=== PATIENT | female | born 1945 | race Caucasian/White ===

== ENCOUNTER 2016-06-12 11:06 | Inpatient (IN) | payer MEDICARE, BC, OTHER ==
[2016-06-12] MEDS ORDERED: VANCOMYCIN HCL INJ 1000 MG VIAL IV ONE (12:13)
--- NOTE | 2016-06-12 12:15 | ER Document Report ---
ED General - General Chief Complaint: Thigh Pain Stated Complaint: RIGHT LEG PAIN Time seen by provider: 11:55 Mode of Arrival: Medic Information source: Patient Notes: 70 yo female that lives alone was standing today and felt a pop and crack in anterior lateral right thigh, was able to then walk across the room. Diabetic, 04-26-16 femoral head fx. was in SNF until 05-21, no help at home. Denies chest pain, sob, abdominal pain, vomiting or dairrhea. Wears diaper because she leaks urine. She was not going to address the open sores and cellulitis of the left lower leg. She states she has itching and lypmhedema. The conversation began with her talking about [place], and not knowing what year it is. Previous admission to [facility] for the fx had d/c dx of metabolic enchephalopathy and was sent to SNF. She left after 21 days because medicare wouldn't pay for it. No fever. TRAVEL OUTSIDE OF THE [place] IN LAST 30 DAYS: No - Related Data Allergies/Adverse Reactions: valsartan [From Diovan] Allergy (Unknown, Verified 04/26/16 19:55) clindamycin [Clindamycin] Allergy (Verified 04/26/16 12:38) Penicillins Allergy (Verified 04/26/16 12:38) Past Medical History - General Information source: Patient - Social History Smoking Status: Current Every Day Smoker Frequency of alcohol use: Occasional Drug Abuse: None Lives with: Alone Family History: CAD - Past Medical History Cardiac Medical History: Reports: Hx Hypertension Pulmonary Medical History: Reports: Hx Asthma, Hx COPD Endocrine Medical History: Reports: Hx Diabetes Mellitus Type 1, Hx Diabetes Mellitus Type 2 Psychiatric Medical History: Reports: Hx Depression Surgical Hx: Negative - Immunizations Hx Pneumococcal Vaccination: 05/24/11 Review of Systems - Review of Systems Constitutional: No symptoms reported EENT: No symptoms reported Cardiovascular: No symptoms reported Respiratory: No symptoms reported Gastrointestinal: No symptoms reported Genitourinary: No symptoms reported Female Genitourinary: No symptoms reported Musculoskeletal: See HPI Skin: No symptoms reported Hematologic/Lymphatic: No symptoms reported Neurological/Psychological: No symptoms reported Physical Exam - Vital signs Vitals: Temp Pulse Resp BP Pulse Ox 97.9 F 94 14 106/62 99 06/12/16 11:47 06/12/16 11:47 06/12/16 11:47 06/12/16 11:47 06/12/16 11:47 Interpretation: Normal - General General appearance: Alert, Other - Chronically ill-appearing In distress: None Notes: Oily hair, dirty fingernails. - HEENT Head: Normocephalic, Other - Posterior occipital scar from laceration and the hair in that area is only 1 inch long Eyes: Normal Conjunctiva: Normal Extraocular movements intact: Yes Pupils: PERRL Mouth/Lips: Other Mucous membranes: Dry Pharynx: Normal Neck: Supple. No: Lymphadenopathy - Respiratory Respiratory status: No respiratory distress Chest status: Nontender Breath sounds: Normal Chest palpation: Normal - Cardiovascular Rhythm: Regular Heart sounds: Normal auscultation Murmur: No - Abdominal Inspection: Normal Distension: No distension Bowel sounds: Normal Tenderness: Nontender. No: Tender Organomegaly: No organomegaly - Back Back: Normal, Nontender - Extremities General upper extremity: Normal inspection, Nontender, Normal color, Normal ROM , Normal temperature General lower extremity: Normal inspection, Nontender, Normal color, Normal ROM , Normal temperature, Normal weight bearing. No: Kevan's sign Hip: Other - No pain with internal/external rotation of the hip Thigh: Tender - Mild tenderness right anterior lateral thigh muscle. No: Deformity, Instability - Neurological Neuro grossly intact: Yes Cognition: Other - Time she seems oriented and then she starts talking about something that is unrelated to the question Orientation: Disoriented to time, Disoriented to events Solano Coma Scale Eye Opening: Spontaneous Solano Coma Scale Verbal: Oriented - To person and place Zac Coma Scale Motor: Obeys Commands Zac Coma Scale Total: 15 Speech: Normal Cranial nerves: No: Facial palsy Motor strength normal: LUE, RUE, LLE, RLE Additional motor exam normals: Equal spout tender Sensory: Normal - Psychological Associated symptoms: Normal affect, Normal mood - Skin Skin Temperature: Warm Skin Moisture: Dry Skin Color: Normal Location of irregularity: Extremities - Left lower leg Character of irregularity: Erythematous - Warm rated skin with multiple open crusted lesions one in the posterior left calf is 4 cm round. Cellulitis anterior and posterior but not completely circumferential left lower leg Irregularity with: Tenderness, Warmth, Thickening, Crusting, Inflammation, Weeping Course - Re-evaluation Re-evalutation: 06/12/16 12:15 dr. go in room to evaluate pt for workup, altered mental status, cellulitis left leg. 06/12/16 14:06 nurse has not given the antibiotic yet. 06/12/16 15:[address] go, pt to be admitted. dr. stark who is admitting to [facility] inpatient for cellulitis, altered mental status - Vital Signs Vital signs: Temp Pulse Resp BP Pulse Ox 97.9 F 94 14 106/62 99 06/12/16 11:47 06/12/16 11:47 06/12/16 11:47 06/12/16 11:47 06/12/16 11:47 - Laboratory Result Diagrams: 06/12/16 13:30 06/12/16 13:30 Laboratory results interpreted by me: 06/12/16 06/12/16 06/12/16 13:30 13:30 13:30 WBC 11.8 H MCHC 30.7 L RDW 24.6 H Absolute Neutrophils 9.2 H Est GFR (Non-Af Amer) 59 L Lactic Acid 2.3 H Alkaline Phosphatase 180 H Ur Leukocyte Esterase 06/12/16 15:15 WBC MCHC RDW Absolute Neutrophils Est GFR (Non-Af Amer) Lactic Acid Alkaline Phosphatase Ur Leukocyte Esterase TRACE H Discharge - Discharge Clinical Impression: Cellulitis of left lower extremity, diabetes, Right thigh pain, open sores Altered mental status Qualifiers: Altered mental status type: disorientation Qualified Code(s): R41.0 - Disorientation, unspecified Condition: Stable Disposition: ADMITTED INPATIENT Admitting Provider: Hospitalist Unit Admitted: [facility]
[2016-06-12 13:57] LABS: ABSOLUTE BASOPHILS # (AUTO) 0.1 10^3/uL (0.0-0.2); ABSOLUTE LYMPHOCYTES (AUTO) 1.9 10^3/uL (0.5-4.7); ABSOLUTE MONOCYTES (AUTO) 0.7 10^3/uL (0.1-1.4); ABSOLUTE NEUT (AUTO) 9.2 10^3/uL (1.7-8.2); BASOPHILS % (AUTO) 0.6 % (0-2); EOSINOPHILS % (AUTO) 0.2 % (0-6); HEMATOCRIT 40.1 % (36.0-47.0); HEMOGLOBIN 12.3 g/dL (12.0-15.5); HGB HCT DIFFERENCE -3.2; MEAN CORPUSCULAR HEMOGLOBIN 27.2 pg (27.0-33.4); MEAN CORPUSCULAR HGB CONC 30.7 g/dL (32.0-36.0); MEAN CORPUSCULAR VOLUME 89 fl (80-97); MONOCYTES % (AUTO) 5.6 % (3-13); RED BLOOD COUNT 4.53 10^6/uL (3.72-5.28); RED CELL DISTRIBUTION WIDTH 24.6 % (11.5-14.0); SEGMENTED NEUTROPHILS % (AUTO) 77.6 % (42-78); WHITE BLOOD COUNT 11.8 10^3/uL (4.0-10.5)
[2016-06-12 14:20] LABS: ALANINE AMINOTRANSFERASE 19 U/L (9-52); ALBUMIN 3.7 g/dL (3.5-5.0); ALKALINE PHOSPHATASE 180 U/L (38-126); ANION GAP 12 (5-19); ASPARTATE AMINO TRANSFERASE 34 U/L (14-36); BILIRUBIN,TOTAL 0.6 mg/dL (0.2-1.3); BLOOD UREA NITROGEN 17 mg/dL (7-20); CALCIUM 9.1 mg/dL (8.4-10.2); CARBON DIOXIDE 29 mmol/L (22-30); CHLORIDE 100 mmol/L (98-107); CREATININE RESULT 0.93 mg/dL (0.52-1.25); GLUCOSE 89 mg/dL (75-110); POTASSIUM 4.5 mmol/L (3.6-5.0); SODIUM 141.1 mmol/L (137-145); TOTAL PROTEIN 7.2 g/dL (6.3-8.2)
[2016-06-12 14:28] LABS: ALCOHOL < 10 mg/dL (NONE DETECTED)
[2016-06-12] MEDS ORDERED: NORMAL SALINE 1000 ML 1,000 ML IV ONE ×2 (14:48→14:58)
[2016-06-12 15:39] LABS: APPEARANCE,URINE SLIGHTLY-CLOUDY; BILIRUBIN,URINE NEGATIVE (NEGATIVE); GLUCOSE, URINE NEGATIVE (NEGATIVE); KETONES,URINE NEGATIVE (NEGATIVE); LEUKOCYTE ESTERASE,URINE TRACE (NEGATIVE); NITRITE,URINE NEGATIVE (NEGATIVE); PROTEIN,URINE NEGATIVE (NEGATIVE); URINE SPECIFIC GRAVITY 1.012; UROBILINOGEN,URINE NEGATIVE mg/dL (<2.0)
--- NOTE | 2016-06-12 15:55 | PDOC H&P ---
History of Present Illness History of Present Illness: VIVEK MAGUIRE is a 70 year old female with a past medical history of hypertension, insulin-dependent diabetes, continuous tobacco abuse, moderate alcohol use who presents to our ED with complains of "spasms " right lower extremity Patient was quite confused initially and diagnosed of sepsis , cellulitis left lower extremity subsequently admitted under hospitalist service for further evaluation and care Past Medical History Cardiac Medical History: Reports: Hypertension Pulmonary Medical History: Reports: Asthma, Chronic Obstructive Pulmonary Disease (COPD) Endocrine Medical History: Reports: Diabetes Mellitus Type 1, Diabetes Mellitus Type 2 Psychiatric Medical History: Reports: Depression Past Surgical History Past Surgical History: Reports: Orthopedic Surgery, Other - None significant reported by the patient Social History Information Source: Patient Lives with: Alone Smoking Status: Current Every Day Smoker Frequency of Alcohol Use: Heavy Hx Recreational Drug Use: No Drugs: None Hx Prescription Drug Abuse: No - Advance Directive Resuscitation Status: Full Code Surrogate healthcare decision maker:: friend krista Hall Family History Family History: CAD Parental Family History Reviewed: Yes - CAD Children Family History Reviewed: No Sibling(s) Family History Reviewed.: No Medication/Allergy Home Medications: Atorvastatin Calcium 20 mg PO DAILY 04/26/16 Cholecalciferol (Vitamin D3) [Vitamin D3] 5,000 unit PO DAILY 04/26/16 Cyanocobalamin (Vitamin B-12) [B-12] 1,000 mcg PO DAILY 04/26/16 Duloxetine HCl 60 mg PO DAILY 04/26/16 Metformin HCl [Metformin HCl ER] 1,000 mg PO DAILY 04/26/16 Pramipexole Di-HCl [Pramipexole ER] 3 mg PO DAILY 04/26/16 Ramipril 20 mg PO DAILY 04/26/16 Ferrous Sulfate [Iron] 325 mg PO DAILY 04/27/16 Amlodipine Besylate [Norvasc 5 mg Tablet] 5 mg PO DAILY #30 tablet 05/01/16 Hydrocodone/Acetaminophen [Falun 5-325 mg Tablet] 1 tab PO Q6HP PRN #20 tablet 05/01/16 Insulin Glargine,Hum.rec.anlog [Lantus Insulin 100 Unit/mL] 25 unit SUBCUT QHS # 1 insuln.pen 05/01/16 Insulin Lispro [Humalog Insulin (Lispro) 100 unit/mL] 0 - 12 unit SUBCUT ACHSP PRN #1 unit 05/01/16 Magnesium Hydroxide [Milk of Magnesia 30 ml Udcup] 30 ml PO Q48HP PRN #1 bottle 05/01/16 Nicotine [Nicoderm 21 mg/24 Hr Transderm Patch] 1 each TD DAILY #30 patch.td24 05/01/16 Risperidone [Risperdal 1 mg Tablet] 0.5 mg PO QHS #30 tablet 05/01/16 Rivaroxaban [Xarelto 10 mg Tablet] 10 mg PO QHS #30 tablet 05/01/16 Thiamine HCl [Thiamine 100 mg Tablet] 100 mg PO DAILY #30 tablet 05/01/16 Allergies/Adverse Reactions: valsartan [From Diovan] Allergy (Unknown, Verified 04/26/16 19:55) clindamycin [Clindamycin] Allergy (Verified 04/26/16 12:38) Penicillins Allergy (Verified 04/26/16 12:38) Review of Systems Constitutional: ABSENT: chills, fever(s), headache(s), weight gain, weight loss Eyes: ABSENT: visual disturbances Ears: ABSENT: hearing changes Cardiovascular: ABSENT: chest pain, dyspnea on exertion, edema, orthropnea, palpitations Gastrointestinal: ABSENT: abdominal pain, constipation, diarrhea, hematemesis, hematochezia, nausea, vomiting Genitourinary: PRESENT: other - incontinent of urine Musculoskeletal: PRESENT: as per HPI - pain spasms right lower extremity usually ambulateds slowly without a cane, other - pain right leg Neurological: ABSENT: abnormal gait, abnormal speech, confusion, dizziness, focal weakness, syncope Physical Exam Vital Signs: Temp Pulse Resp BP Pulse Ox 97.9 F 94 14 106/62 99 06/12/16 11:47 06/12/16 11:47 06/12/16 11:47 06/12/16 11:47 06/12/16 11:47 Intake & Output 06/11/16 06/12/16 06/13/16 00:59 00:59 00:59 Weight 155 kg General appearance: PRESENT: disheveled, thin Head exam: PRESENT: atraumatic, normocephalic Eye exam: PRESENT: conjunctiva pink, EOMI, PERRLA. ABSENT: scleral icterus Neck exam: ABSENT: carotid bruit, JVD, lymphadenopathy, thyromegaly Respiratory exam: PRESENT: clear to auscultation lauren. ABSENT: rales, rhonchi, wheezes Pulses: PRESENT: normal dorsalis pedis pul Vascular exam: PRESENT: normal capillary refill GI/Abdominal exam: PRESENT: normal bowel sounds, soft. ABSENT: distended, guarding, mass, organolmegaly, rebound, tenderness Extremities exam: PRESENT: other - right bradley excoriated areas- scabs left lower extremity redness swelling tenderness foot to infra patellar area Multiple excoriated areas covered with crusts. ABSENT: calf tenderness, clubbing, joint swelling Neurological exam: PRESENT: awake, CN II-XII grossly intact, other - somewhat confused Results Laboratory Results: 06/12/16 13:30 06/12/16 13:30 06/12/16 06/12/16 06/12/16 13:30 13:30 13:30 WBC 11.8 H RBC 4.53 Hgb 12.3 Hct 40.1 MCV 89 MCH 27.2 MCHC 30.7 L RDW 24.6 H Plt Count 351 Seg Neutrophils % 77.6 Lymphocytes % 16.0 Monocytes % 5.6 Eosinophils % 0.2 Basophils % 0.6 Absolute Neutrophils 9.2 H Absolute Lymphocytes 1.9 Absolute Monocytes 0.7 Absolute Eosinophils 0.0 Absolute Basophils 0.1 VBG pH VBG pCO2 VBG HCO3 VBG Base Excess Sodium 141.1 Potassium 4.5 Chloride 100 Carbon Dioxide 29 Anion Gap 12 BUN 17 Creatinine 0.93 Est GFR ( Amer) > 60 Est GFR (Non-Af Amer) 59 L Glucose 89 Lactic Acid 2.3 H Calcium 9.1 Magnesium 2.0 Total Bilirubin 0.6 AST 34 ALT 19 Alkaline Phosphatase 180 H Total Protein 7.2 Albumin 3.7 Urine Color Urine Appearance Urine pH Ur Specific Eva Urine Protein Urine Glucose (UA) Urine Ketones Urine Blood Urine Nitrite Ur Leukocyte Esterase Urine WBC (Auto) Urine RBC (Auto) 06/12/16 06/12/16 13:30 15:15 WBC RBC Hgb Hct MCV MCH MCHC RDW Plt Count Seg Neutrophils % Lymphocytes % Monocytes % Eosinophils % Basophils % Absolute Neutrophils Absolute Lymphocytes Absolute Monocytes Absolute Eosinophils Absolute Basophils VBG pH Cancelled VBG pCO2 Cancelled VBG HCO3 Cancelled VBG Base Excess Cancelled Sodium Potassium Chloride Carbon Dioxide Anion Gap BUN Creatinine Est GFR ( Amer) Est GFR (Non-Af Amer) Glucose Lactic Acid Calcium Magnesium Total Bilirubin AST ALT Alkaline Phosphatase Total Protein Albumin Urine Color YELLOW Urine Appearance SLIGHTLY-CLOUDY Urine pH 7.0 Ur Specific Eva 1.012 Urine Protein NEGATIVE Urine Glucose (UA) NEGATIVE Urine Ketones NEGATIVE Urine Blood NEGATIVE Urine Nitrite NEGATIVE Ur Leukocyte Esterase TRACE H Urine WBC (Auto) 1 Urine RBC (Auto) 0 Impressions: Femur X-Ray 06/12/16 12:01 IMPRESSION: Postoperative changes. Hip/Pelvis X-Ray 06/12/16 12:01 IMPRESSION: Postoperative changes. Head CT 06/12/16 12:11 IMPRESSION: Motion artifact. No acute changes Assessment & Plan - Diagnosis (1) Acute metabolic encephalopathy Is this a current diagnosis for this admission?: Yes (2) Sepsis Qualifiers: Sepsis type: sepsis due to unspecified organism Qualified Code(s): A41.9 - Sepsis, unspecified organism Is this a current diagnosis for this admission?: YesPlan: sepsis secondary to cellulitis treat with zosyn/ vanco IV fluids monitor (3) Cellulitis Qualifiers: Site of cellulitis of extremity: lower extremity Laterality: left Is this a current diagnosis for this admission?: YesPlan: as above (4) Alcohol abuse Is this a current diagnosis for this admission?: Yes (5) Full code status Is this a current diagnosis for this admission?: Yes (6) Insulin dependent diabetes mellitus Is this a current diagnosis for this admission?: YesPlan: continue home meds accuchecks ACHS- Lispro coverage (7) DVT prophylaxis Is this a current diagnosis for this admission?: Yes - Time Time Spent with patient: admit IMCU inpatient Time Spent: Greater than 70 Minutes - Inpatient Certification Based on my medical assessment, after consideration of the patient's comorbidities, presenting symptoms, or acuity I expect that the services needed warrant INPATIENT care.: Yes I certify that my determination is in accordance with my understanding of Medicare's requirements for reasonable and necessary INPATIENT services [42 CFR 412.3e].: Yes
[2016-06-12] MEDS ORDERED: NORMAL SALINE 1000 ML 1,000 ML IV PRN (15:56)
[2016-06-12 15:57] LABS: URINE BARBITURATES SCREEN NEGATIVE; URINE METHADONE SCREEN NEGATIVE; URINE PHENCYCLIDINE SCREEN NEGATIVE
[2016-06-12] MEDS ORDERED: GLUCAGON,HUMAN RECOMB 1 MG INJ IM PRN (15:59)
[2016-06-12] MEDS ORDERED: DEXTROSE 50%-WATER 25 GM/50 ML DISP.SYRIN IV PRN ×2 (15:59)
[2016-06-12] MEDS ORDERED: DEXTROSE 40% GEL 15 GM TUBE PO PRN ×2 (15:59)
[2016-06-12] MEDS ORDERED: VANCOMYCIN HCL 0 MG in DEXTROSE 5%-WATER 250 ML IV NR (16:15)
[2016-06-12] MEDS ORDERED: ENOXAPARIN SODIUM INJ 40 MG/0.4 ML DISP.SYRIN SUBCUT ONE ×2 (16:30→22:15)
[2016-06-12] MEDS ORDERED: THIAMINE HCL 100 MG TABLET PO ONE ×2 (17:00→22:15)
[2016-06-12] MEDS ORDERED: AZTREONAM 1 GM in DEXTROSE 5%-WATER 50 ML IV ONE (17:00)
[2016-06-12 17:38] LABS: VENOUS BLOOD BASE EXCESS 5.6 mmol/L; VENOUS BLOOD HCO3 32.1 mmol/L (20-32); VENOUS BLOOD PCO2 55.3 mmHg (35-63); VENOUS BLOOD PH 7.38 (7.30-7.42)
[2016-06-12] MEDS: FAMOTIDINE INJ/PF 20 MG/2 ML SDV IV SCH (22:25)
[2016-06-12] MEDS: AZTREONAM 1 GM in DEXTROSE 5%-WATER 50 ML IV SCH (22:25)
[2016-06-12] MEDS: VANCOMYCIN HCL 1,500 MG in DEXTROSE 5%-WATER 250 ML IV SCH (22:35)
[2016-06-12] MEDS: LORAZEPAM INJ 2 MG/1 ML VIAL IV PRN (22:38)
[2016-06-13 04:56] LABS: ABSOLUTE BASOPHILS # (AUTO) 0.1 10^3/uL (0.0-0.2); ABSOLUTE EOSINOPHILS # (AUTO) 0.3 10^3/uL (0.0-0.6); ABSOLUTE MONOCYTES (AUTO) 0.5 10^3/uL (0.1-1.4); ABSOLUTE NEUT (AUTO) 5.8 10^3/uL (1.7-8.2); BASOPHILS % (AUTO) 0.8 % (0-2); EOSINOPHILS % (AUTO) 3.6 % (0-6); HEMATOCRIT 36.5 % (36.0-47.0); HEMOGLOBIN 11.1 g/dL (12.0-15.5); HGB HCT DIFFERENCE -3.2; LYMPHOCYTES % (AUTO) 30.7 % (13-45); MEAN CORPUSCULAR HEMOGLOBIN 26.9 pg (27.0-33.4); MEAN CORPUSCULAR HGB CONC 30.3 g/dL (32.0-36.0); MEAN CORPUSCULAR VOLUME 89 fl (80-97); MONOCYTES % (AUTO) 5.6 % (3-13); RED BLOOD COUNT 4.11 10^6/uL (3.72-5.28); RED CELL DISTRIBUTION WIDTH 24.5 % (11.5-14.0); SEGMENTED NEUTROPHILS % (AUTO) 59.3 % (42-78); WHITE BLOOD COUNT 9.7 10^3/uL (4.0-10.5)
[2016-06-13] MEDS: LORAZEPAM INJ 2 MG/1 ML VIAL IV PRN (04:57)
[2016-06-13] MEDS: AZTREONAM 1 GM in DEXTROSE 5%-WATER 50 ML IV SCH ×3 (05:02→21:13)
[2016-06-13 05:16] LABS: ALANINE AMINOTRANSFERASE 22 U/L (9-52); ALBUMIN 2.8 g/dL (3.5-5.0); ALKALINE PHOSPHATASE 144 U/L (38-126); ANION GAP 8 (5-19); ASPARTATE AMINO TRANSFERASE 23 U/L (14-36); BILIRUBIN,TOTAL 0.3 mg/dL (0.2-1.3); BLOOD UREA NITROGEN 14 mg/dL (7-20); CALCIUM 8.7 mg/dL (8.4-10.2); CARBON DIOXIDE 27 mmol/L (22-30); CHLORIDE 105 mmol/L (98-107); CREATININE RESULT 0.89 mg/dL (0.52-1.25); GLUCOSE 170 mg/dL (75-110); MAGNESIUM 1.9 mg/dL (1.6-2.3); POTASSIUM 4.6 mmol/L (3.6-5.0); SODIUM 139.5 mmol/L (137-145); TOTAL PROTEIN 5.5 g/dL (6.3-8.2)
[2016-06-13] MEDS: THIAMINE HCL 100 MG TABLET PO SCH (09:45)
[2016-06-13] MEDS: VANCOMYCIN HCL 1,500 MG in DEXTROSE 5%-WATER 250 ML IV SCH ×2 (09:45→22:35)
[2016-06-13] MEDS: ENOXAPARIN SODIUM INJ 40 MG/0.4 ML DISP.SYRIN SUBCUT SCH (09:45)
[2016-06-13] MEDS: FAMOTIDINE INJ/PF 20 MG/2 ML SDV IV SCH ×2 (09:45→21:12)
--- NOTE | 2016-06-13 14:27 | PDOC PROGRESS REPORT ---
Subjective Progress Note for:: 06/13/16 Subjective:: Patient states she's feeling well. She still has severe pain in the right lower extremity; she is describing it as spasm in the foot It is difficult for her to ambulate Cellulitis of the left lower extremity is improving with decreased warmth and redness; Patient is still somewhat confused at times; but does not appear in any distress and is clinically stable Physical Exam Vital Signs: Temp Pulse Resp BP Pulse Ox 97.4 F 88 16 151/81 H 97 06/13/16 11:42 06/13/16 11:42 06/13/16 11:42 06/13/16 11:42 06/13/16 11:42 Intake & Output 06/12/16 06/13/16 06/14/16 00:59 00:59 00:59 Intake Total 1760 Balance 1760 Weight 70.3 kg 71 kg General appearance: PRESENT: no acute distress, disheveled Head exam: PRESENT: atraumatic, normocephalic Eye exam: PRESENT: conjunctiva pink, EOMI, PERRLA. ABSENT: scleral icterus Neck exam: ABSENT: carotid bruit, JVD, lymphadenopathy, thyromegaly Respiratory exam: PRESENT: clear to auscultation lauren. ABSENT: rales, rhonchi, wheezes Pulses: PRESENT: normal dorsalis pedis pul GI/Abdominal exam: PRESENT: normal bowel sounds, soft. ABSENT: distended, guarding, mass, organolmegaly, rebound, tenderness Rectal exam: PRESENT: deferred Extremities exam: PRESENT: other - Right lower extremity: There is no edema no redness or swelling The foot is cool to touch distal pulses are decreased, Left lower extremity: Cellulitis is improving; the leg is still erythematous; the scabs on the anterior bradley draining slightly some purulent material purulent material Neurological exam: PRESENT: awake, CN II-XII grossly intact Skin exam: PRESENT: other - Multiple scabs and excoriations lower extremities Results Laboratory Results: 06/13/16 04:02 06/13/16 04:02 06/12/16 06/12/16 06/12/16 17:26 17:26 17:26 WBC RBC Hgb Hct MCV MCH MCHC RDW Plt Count Seg Neutrophils % Lymphocytes % Monocytes % Eosinophils % Basophils % Absolute Neutrophils Absolute Lymphocytes Absolute Monocytes Absolute Eosinophils Absolute Basophils VBG pH 7.38 VBG pCO2 55.3 VBG HCO3 32.1 H VBG Base Excess 5.6 Sodium Potassium Chloride Carbon Dioxide Anion Gap BUN Creatinine Est GFR ( Amer) Est GFR (Non-Af Amer) Glucose Lactic Acid 1.8 Calcium Magnesium Total Bilirubin AST ALT Alkaline Phosphatase Ammonia < 8.7 L Total Protein Albumin TSH 06/13/16 06/13/16 06/13/16 04:02 04:02 04:02 WBC 9.7 RBC 4.11 Hgb 11.1 L Hct 36.5 MCV 89 MCH 26.9 L MCHC 30.3 L RDW 24.5 H Plt Count 284 Seg Neutrophils % 59.3 Lymphocytes % 30.7 Monocytes % 5.6 Eosinophils % 3.6 Basophils % 0.8 Absolute Neutrophils 5.8 Absolute Lymphocytes 3.0 Absolute Monocytes 0.5 Absolute Eosinophils 0.3 Absolute Basophils 0.1 VBG pH VBG pCO2 VBG HCO3 VBG Base Excess Sodium 139.5 Potassium 4.6 Chloride 105 Carbon Dioxide 27 Anion Gap 8 BUN 14 Creatinine 0.89 Est GFR ( Amer) > 60 Est GFR (Non-Af Amer) > 60 Glucose 170 H Lactic Acid Calcium 8.7 Magnesium 1.9 Total Bilirubin 0.3 AST 23 ALT 22 Alkaline Phosphatase 144 H Ammonia Total Protein 5.5 L Albumin 2.8 L TSH 3.58 Impressions: Femur X-Ray 06/12/16 12:01 IMPRESSION: Postoperative changes. Hip/Pelvis X-Ray 06/12/16 12:01 IMPRESSION: Postoperative changes. Head CT 06/12/16 12:11 IMPRESSION: Motion artifact. No acute changes Lumbar Spine X-Ray 06/13/16 08:12 IMPRESSION: Age indeterminate compression fractures of L1, L3, L4. Assessment & Plan - Diagnosis (1) Acute metabolic encephalopathy Is this a current diagnosis for this admission?: YesPlan: Is improving Encephalopathy secondary to sepsis; secondary to a cellulitis left lower extremity Patient still appears at times somewhat confused (2) Sepsis Qualifiers: Sepsis type: sepsis due to unspecified organism Qualified Code(s): A41.9 - Sepsis, unspecified organism Is this a current diagnosis for this admission?: Yes (3) Cellulitis Qualifiers: Site of cellulitis of extremity: lower extremity Laterality: left Is this a current diagnosis for this admission?: YesPlan: Left lower extremity secondary to excoriations became infected Patient states she is always itchy We will continue vancomycin and Zosyn (4) Alcohol abuse Is this a current diagnosis for this admission?: Yes (5) Full code status Is this a current diagnosis for this admission?: Yes (6) Insulin dependent diabetes mellitus Is this a current diagnosis for this admission?: Yes (7) DVT prophylaxis Is this a current diagnosis for this admission?: Yes (8) Lumbar radiculopathy Is this a current diagnosis for this admission?: YesPlan: LS-spine x-ray shows multiple fractured vertebra and degenerative disc L4-L5 The pain that patient is complaining of likely it could be lumbar radiculopathy We will treat the patient with steroids and reevaluate needs Patient also could have vascular insufficiency of lower extremities And pain she's describing could be a form of claudication We will obtain arterial Dopplers both lower extremities On physical examination the distal pulses are faint and the feet are cool - Time Time Spent with patient: 25-34 minutes - Continue present management Patient likely will remain in the hospital over the weekend
[2016-06-13] MEDS: INSULIN LISPRO 100 UNIT/ML 3 ML VIAL SUBCUT PRN (22:35)
[2016-06-14] MEDS: AZTREONAM 1 GM in DEXTROSE 5%-WATER 50 ML IV SCH ×3 (05:00→22:14)
--- NOTE | 2016-06-14 08:15 | PDOC PROGRESS REPORT ---
Subjective Progress Note for:: 06/14/16 Subjective:: Patient states that the pain in her right lower extremities a little bit improved ;she has no fever no chills The redness of the left lower extremity has improved she still on Zosyn and vancomycin Appetite is good And her blood sugars are fairly well controlled CT of the LS spine is pending today; We feel strongly that the pain in the right lower extremity is likely to be related to lumbar radiculopathy The LS spine x-ray performed yesterday that showed multiple compression fracture and disc disease Patient cannot have an MRI performed. We will schedule her for CT and initiate prednisone therapy; Physical Exam Vital Signs: Temp Pulse Resp BP Pulse Ox 97.7 F 95 18 162/85 H 94 06/14/16 07:08 06/14/16 07:08 06/14/16 07:08 06/14/16 07:08 06/14/16 07:08 Intake & Output 06/13/16 06/14/16 06/15/16 00:59 00:59 00:59 Intake Total 2460 572 Balance 2460 572 Weight 70.3 kg 71 kg 70.2 kg General appearance: PRESENT: no acute distress, well-developed, well-nourished Head exam: PRESENT: atraumatic, normocephalic Eye exam: PRESENT: conjunctiva pink, EOMI, PERRLA. ABSENT: scleral icterus Ear exam: PRESENT: normal external ear exam Mouth exam: PRESENT: moist, tongue midline Neck exam: ABSENT: carotid bruit, JVD, lymphadenopathy, thyromegaly Respiratory exam: PRESENT: clear to auscultation lauren. ABSENT: rales, rhonchi, wheezes Cardiovascular exam: PRESENT: RRR. ABSENT: diastolic murmur, rubs, systolic murmur Pulses: PRESENT: normal dorsalis pedis pul Vascular exam: PRESENT: normal capillary refill GI/Abdominal exam: PRESENT: normal bowel sounds, soft. ABSENT: distended, guarding, mass, organolmegaly, rebound, tenderness Rectal exam: PRESENT: deferred Extremities exam: PRESENT: full ROM, other - Decrease redness of the left lower extremity Scabs are drying up. ABSENT: calf tenderness, clubbing, pedal edema Neurological exam: PRESENT: alert, awake, oriented to person, oriented to place , oriented to time, oriented to situation, CN II-XII grossly intact. ABSENT: motor sensory deficit Psychiatric exam: PRESENT: appropriate affect, normal mood. ABSENT: homicidal ideation, suicidal ideation Skin exam: PRESENT: dry, intact, warm. ABSENT: cyanosis, rash Results Laboratory Results: 06/13/16 04:02 06/13/16 04:02 Impressions: Femur X-Ray 06/12/16 12:01 IMPRESSION: Postoperative changes. Hip/Pelvis X-Ray 06/12/16 12:01 IMPRESSION: Postoperative changes. Head CT 06/12/16 12:11 IMPRESSION: Motion artifact. No acute changes Lumbar Spine X-Ray 06/13/16 08:12 IMPRESSION: Age indeterminate compression fractures of L1, L3, L4. Assessment & Plan - Diagnosis (1) Acute metabolic encephalopathy Is this a current diagnosis for this admission?: Yes (2) Sepsis Qualifiers: Sepsis type: sepsis due to unspecified organism Qualified Code(s): A41.9 - Sepsis, unspecified organism Is this a current diagnosis for this admission?: Yes (3) Cellulitis Qualifiers: Site of cellulitis of extremity: lower extremity Laterality: left Is this a current diagnosis for this admission?: YesPlan: Is improving Continue IV antibiotics Consider discharging patient in a.m. on by mouth (4) Alcohol abuse Is this a current diagnosis for this admission?: Yes (5) Full code status Is this a current diagnosis for this admission?: Yes (6) Insulin dependent diabetes mellitus Is this a current diagnosis for this admission?: Yes (7) DVT prophylaxis Is this a current diagnosis for this admission?: Yes (8) Lumbar radiculopathy Is this a current diagnosis for this admission?: YesPlan: We will start prednisone 40 mg daily for [address] of the LS spine is pending Patient is will be referred to orthopedics she had been seen in the past by Dr. Cardozo - Time Time Spent with patient: Tomorrow arterial Doppler lower extremities with be performed We will evaluate patient for discharge if all tests results are available Overall patient's condition has improved Patient will need to be discharged with home health and home PT Time Spent with patient: 25-34 minutes
[2016-06-14] MEDS: FAMOTIDINE INJ/PF 20 MG/2 ML SDV IV SCH ×2 (10:24→21:21)
[2016-06-14] MEDS: THIAMINE HCL 100 MG TABLET PO SCH (10:24)
[2016-06-14] MEDS: VANCOMYCIN HCL 1,500 MG in DEXTROSE 5%-WATER 250 ML IV SCH (10:24)
[2016-06-14] MEDS: ENOXAPARIN SODIUM INJ 40 MG/0.4 ML DISP.SYRIN SUBCUT SCH (10:30)
[2016-06-14 10:42] LABS: CREATININE RESULT 0.83 mg/dL (0.52-1.25)
[2016-06-14] MEDS: AMITRIPTYLINE HCL 25 MG TABLET PO SCH (21:21)
[2016-06-14] MEDS: LORAZEPAM INJ 2 MG/1 ML VIAL IV PRN (21:21)
[2016-06-14] MEDS ORDERED: INSULIN GLARGINE,HUM.REC.ANLOG 300 UNIT/3 ML INSULN.PEN SUBCUT SCH (22:00)
[2016-06-15 05:07] LABS: ANION GAP 7 (5-19); BLOOD UREA NITROGEN 13 mg/dL (7-20); CALCIUM 8.9 mg/dL (8.4-10.2); CARBON DIOXIDE 27 mmol/L (22-30); CHLORIDE 102 mmol/L (98-107); CREATININE RESULT 0.74 mg/dL (0.52-1.25); GLUCOSE 196 mg/dL (75-110); POTASSIUM 4.1 mmol/L (3.6-5.0); SODIUM 136.1 mmol/L (137-145)
[2016-06-15] MEDS: AZTREONAM 1 GM in DEXTROSE 5%-WATER 50 ML IV SCH (06:33)
[2016-06-15] MEDS: AMITRIPTYLINE HCL 25 MG TABLET PO SCH (06:33)
[2016-06-15] MEDS: ENOXAPARIN SODIUM INJ 40 MG/0.4 ML DISP.SYRIN SUBCUT SCH (09:47)
[2016-06-15] MEDS: THIAMINE HCL 100 MG TABLET PO SCH (09:48)
[2016-06-15] MEDS: FAMOTIDINE INJ/PF 20 MG/2 ML SDV IV SCH (09:48)
[2016-06-15] MEDS ORDERED: INSULIN GLARGINE,HUM.REC.ANLOG 300 UNIT/3 ML INSULN.PEN SUBCUT SCH (10:00)
[2016-06-15] MEDS ORDERED: PREDNISONE 20 MG TABLET PO SCH (10:00)
[2016-06-15] MEDS ORDERED: DULOXETINE HCL 30 MG CAPSULE.DR PO SCH (10:00)
[2016-06-15] MEDS ORDERED: VANCOMYCIN HCL 750 MG in DEXTROSE 5%-WATER 250 ML IV SCH (10:00)
[2016-06-15] MEDS ORDERED: (PENDING PHARMACY ID) (Metformin Hcl [Metformin Hcl Er] 1,000 MG) PO SCH (10:00)
[2016-06-15] MEDS ORDERED: RAMIPRIL 10 MG CAPSULE PO SCH (10:00)
[2016-06-15] MEDS ORDERED: ATORVASTATIN CALCIUM 10 MG TABLET PO SCH (10:00)
[2016-06-15] MEDS: INSULIN LISPRO 100 UNIT/ML 3 ML VIAL SUBCUT PRN (12:40)
[2016-06-15 13:27] VITALS: BP 112/68
--- NOTE | 2016-06-15 13:29 | PDOC DISCHARGE SUMMARY ---
General - Admit/Disc Date/PCP Admission Date/Primary Care Provider: 06/12/16 15:56 Discharge Date: 06/15/16 - Discharge Diagnosis (1) Acute metabolic encephalopathy Is this a current diagnosis for this admission?: YesSummary: Metabolic encephalopathy was likely secondary to sepsis Sepsis was secondary to UTI and cellulitis It did improve dramatically during her hospital stay At discharge patient is alert awake oriented (2) Sepsis Is this a current diagnosis for this admission?: YesSummary: Secondary to UTI Culture showed E faecalis sensitive to Levaquin And sepsis and secondary to cellulitis Patient was treated with Zosyn and vancomycin; She will be discharged on Levaquin by mouth (3) Cellulitis Is this a current diagnosis for this admission?: YesSummary: In the left lower extremity improved (4) Alcohol abuse Is this a current diagnosis for this admission?: YesSummary: History of alcohol abuse in the past Patient never had any withdrawal symptoms during her hospitalization She was discharged with thiamine supplementation (5) Full code status Is this a current diagnosis for this admission?: Yes (6) Insulin dependent diabetes mellitus Is this a current diagnosis for this admission?: YesSummary: We did split the Lantus is discharged to 30 units every 12 Her blood sugars are fairly well controlled during her stay (7) DVT prophylaxis Is this a current diagnosis for this admission?: Yes (8) Lumbar radiculopathy Is this a current diagnosis for this admission?: YesSummary: Patient has severe osteoarthritis spinal stenosis and compression fractures the LS spine; she was complaining of severe radicular pain right leg on admission She was treated with IV steroids She will be discharged on prednisone by mouth for 5 days and referred to pain management for further care - Additional Information Resuscitation Status: Full Code Discharge Diet: Diabetic Discharge Activity: Activity As Tolerated Home Medications: Amitriptyline HCl [Elavil 25 mg Tablet] 25 mg PO Q8 06/12/16 Atorvastatin Calcium [Lipitor 10 mg Tablet] 10 mg PO DAILY 06/12/16 Cholecalciferol (Vitamin D3) [Vitamin D3 5000 unit Capsule] 5,000 units PO DAILY 06/12/16 Duloxetine HCl [Cymbalta] 60 mg PO DAILY 06/12/16 Metformin HCl [Metformin HCl ER] 1,000 mg PO BID 06/12/16 Mupirocin 1 applic TOP BID 06/12/16 Ramipril [Altace 10 mg Capsule] 10 mg PO DAILY 06/12/16 Sodium Fluoride [Prevident 5000] 1 applic DENT BID 06/12/16 Diazepam [Valium 5 mg Tablet] 5 mg PO QHS #30 tablet 06/15/16 Insulin Glargine,Hum.rec.anlog [Lantus Insulin 100 Unit/mL] 30 unit SUBCUT Q12 # 1 insuln.pen 06/15/16 Levofloxacin [Levaquin 500 mg Tablet] 500 mg PO DAILY #10 tablet 06/15/16 Thiamine HCl [Thiamine 100 mg Tablet] 100 mg PO DAILY #30 tablet 06/15/16 History of Present Illness Patient complains of: Confusion fever cellulitis History of Present Illness: VIVEK MAGUIRE is a 70 year old female with a past medical history of hypertension, insulin-dependent diabetes, continuous tobacco abuse, moderate alcohol use who presents to our ED with complains of "spasms " right lower extremity Patient was quite confused initially and diagnosed of sepsis , cellulitis left lower extremity subsequently admitted under hospitalist service for further evaluation and care Hospital Course Hospital Course: See above Physical Exam Vital Signs: Temp Pulse Resp BP Pulse Ox 97.6 F 107 H 18 141/89 H 94 06/15/16 07:32 06/15/16 07:32 06/15/16 07:32 06/15/16 07:32 06/15/16 07:32 Intake & Output 06/14/16 06/15/16 06/16/16 00:59 00:59 00:59 Intake Total 2460 1866 150 Balance 2460 1866 150 Weight 71 kg 70.2 kg 71.3 kg General appearance: PRESENT: no acute distress, well-developed, well-nourished Head exam: PRESENT: atraumatic, normocephalic Eye exam: PRESENT: conjunctiva pink, EOMI, PERRLA. ABSENT: scleral icterus Ear exam: PRESENT: normal external ear exam Mouth exam: PRESENT: moist, tongue midline Neck exam: ABSENT: carotid bruit, JVD, lymphadenopathy, thyromegaly Respiratory exam: PRESENT: clear to auscultation lauren. ABSENT: rales, rhonchi, wheezes Cardiovascular exam: PRESENT: RRR. ABSENT: diastolic murmur, rubs, systolic murmur Pulses: PRESENT: normal dorsalis pedis pul Vascular exam: PRESENT: normal capillary refill GI/Abdominal exam: PRESENT: normal bowel sounds, soft. ABSENT: distended, guarding, mass, organolmegaly, rebound, tenderness Rectal exam: PRESENT: deferred Extremities exam: PRESENT: full ROM. ABSENT: calf tenderness, clubbing, pedal edema Neurological exam: PRESENT: alert, awake, oriented to person, oriented to place , oriented to time, oriented to situation, CN II-XII grossly intact. ABSENT: motor sensory deficit Psychiatric exam: PRESENT: appropriate affect, normal mood. ABSENT: homicidal ideation, suicidal ideation Skin exam: PRESENT: dry, intact, warm, other - Decreased redness left lower extremity Edema has subsided. ABSENT: cyanosis, rash Results Laboratory Results: 06/13/16 04:02 06/15/16 03:44 06/15/16 03:44 Sodium 136.1 L Potassium 4.1 Chloride 102 Carbon Dioxide 27 Anion Gap 7 BUN 13 Creatinine 0.74 Est GFR ( Amer) > 60 Est GFR (Non-Af Amer) > 60 Glucose 196 H Calcium 8.9 06/14/16 06/15/16 06/15/16 21:51 03:44 11:40 Glucose 196 H POC Glucose 231 H 275 H 06/12/16 15:15 Urine Culture - Final Catheterized Urine Enterococcus Faecalis(Group D) 06/12/16 14:30 Blood Culture - Preliminary Blood NO GROWTH AFTER 48 HOURS 06/12/16 13:30 Blood Culture - Preliminary Blood NO GROWTH AFTER 48 HOURS Impressions: Femur X-Ray 06/12/16 12:01 IMPRESSION: Postoperative changes. Hip/Pelvis X-Ray 06/12/16 12:01 IMPRESSION: Postoperative changes. Head CT 06/12/16 12:11 IMPRESSION: Motion artifact. No acute changes Lumbar Spine X-Ray 06/13/16 08:12 IMPRESSION: Age indeterminate compression fractures of L1, L3, L4. Lumbar Spine CT 06/14/16 08:10 IMPRESSION: Compression fractures at multiple levels which are age indeterminate. Spinal stenosis secondary to disc protrusion and posterior element overgrowth at L3-4 and L4-5. Plan Discharge Plan: Patient was discharged to Dr.Bianca Brennan to be seen in the office in a week An arterial Doppler was performed prior to patient's discharge results pending Time Spent: Greater than 30 Minutes
--- NOTE | 2016-06-15 16:49 | XCELERA REPORT ---
[address] [address] Lower Extremity Arterial Evaluation Name: VIVEK MAGUIRE Age: 70 yrs Gender: Female : 1945 Patient Status: Inpatient Patient Location: [id number] Study Date: 06/15/2016 10:51 AM Procedure: A color flow and duplex scan of the lower extremity arteries was performed bilaterally with velocity and waveform anaylsis. Reason For Study: pain rt lower extremity "cramps " cool foot DM Ordering Physician: EMMY NATHAN Performed By: Linnette Matias Measurements and Calculations Right Left SOAP INSPECTOR PSV 118.6 100.6 cm/sec Prox PFA PSV -42.7 -52.6 cm/sec Prox SFA PSV 53.8 71.9 cm/sec Mid SFA PSV -55.0 -94.3 cm/sec Dist SFA PSV -51.4 -64.8 cm/sec Prox Pop A PSV 53.3 64.4 cm/sec Dist WOLF PSV 58.3 55.0 cm/sec Dist COIN MACHINE COLLECTOR PSV 69.8 95.3 cm/sec Quinton Pedis PSV 61.5 51.9 cm/sec Right Side Arterial Evaluation Normal velocity, waveform and triphasic flow are present, from the Common Femoral artery down to the infrageniculate vessels. The ankle-brachial index is 1.28. 0 % stenosis is noted. Left Side Arterial Evaluation Normal velocity, waveform and triphasic flow are present, from the Common Femoral artery down to the infrageniculate vessels. The ankle-brachial index was not obtainable due to non compressibility. 0 % stenosis is noted. Interpretation Summary No hemodynamically significant lesions in the right lower extremity only, on duplex imaging, at rest. No hemodynamically significant lesions in the left lower extremity only, on duplex imaging, at rest. Non compressibility on the left suggests sub clinical arterio sclerosis. : EMMY NATHAN > Shreyas Chavarria
[2016-06-15] MEDS ORDERED: METFORMIN HCL 500 MG TABLET PO SCH (17:00)
[2016-06-15] MEDS ORDERED: DIAZEPAM 5 MG TABLET PO SCH (22:00)
[2016-06-15] MEDS ORDERED: FAMOTIDINE 20 MG TABLET PO SCH (22:00)
== END 2016-06-15 13:49 | disposition home or self-care (01) | DRG 871 ==
LOC: ER 11:06 → EH 15:56 → UNDOADMIN 16:02 → 3N 18:25
PROVIDERS: ADMIT Emergency Medicine; ATTEND Emergency Medicine
DX: A41.9 Sepsis, unspecified organism (principal); G93.41 Metabolic encephalopathy; L03.116 Cellulitis of left lower limb; N39.0 Urinary tract infection, site not specified; G95.20 Unspecified cord compression; J44.1 Chronic obstructive pulmonary disease with (acute) exacerbation; B95.2 Enterococcus as the cause of diseases classified elsewhere; F10.10 Alcohol abuse, uncomplicated; E11.9 Type 2 diabetes mellitus without complications; F17.210 Nicotine dependence, cigarettes, uncomplicated; M48.06 Spinal stenosis, lumbar region; J45.909 Unspecified asthma, uncomplicated; F32.9 Major depressive disorder, single episode, unspecified; Z79.4 Long term (current) use of insulin; Z79.899 Other long term (current) drug therapy; Z82.49 Family history of ischemic heart disease and other diseases of the circulatory system; Z88.8 Allergy status to other drugs, medicaments and biological substances; Z88.3 Allergy status to other anti-infective agents; Z88.0 Allergy status to penicillin
CPT/HCPCS: 36415; 51701; 70450; 72100; 72131; 80048; 80053; 80202; 80307; 81001; 82140; 82565; 82803; 82962; 83605; 83735; 84443; 85025; 87040; 87086; 87088; 87186; 93925; 96365; 99285; G8978-GP; G8979-GP; J1650; J1815; J2060; J3370; J3490; J7030; J7060; J7512; S0028

== ENCOUNTER 2016-11-06 09:34 | Emergency (ER) | payer MEDICARE, BC, OTHER ==
--- NOTE | 2016-11-06 10:23 | ER Document Report ---
ED Medical Screen (RME) - General Chief Complaint: ETOH Abuse Stated Complaint: WEAKNESS Time Seen by Provider: 11/06/16 10:20 Mode of Arrival: Ambulatory Information source: Patient, Friend TRAVEL OUTSIDE OF THE [place] IN LAST 30 DAYS: No - HPI Patient complains to provider of: Alcohol abuse Onset/Duration: Persistent Quality of pain: No pain Notes: 11/06/16 10:22 Patient is a 71-year-old female who presents to the emergency room for chronic alcohol abuse, she is accompanied by her friend Jon Hall who reports that she has been drinking increasingly, she is confused at times, or use with him, patient does admit to drinking heavily at least a half a liter to a liter of scotch daily, she has been doing this for years, she reports that she does not want detox, no history of previous detox treatment, she denies any abdominal pain, no nausea or vomiting, patient denies suicidal or homicidal ideations, she is a smoker of 2-3 cigarettes a day but denies any illicit drugs - Related Data Allergies/Adverse Reactions: valsartan [From Diovan] Allergy (Unknown, Verified 11/06/16 09:37) clindamycin [Clindamycin] Allergy (Verified 11/06/16 09:37) Penicillins Allergy (Verified 11/06/16 09:37) Past Medical History - Social History Drug Abuse: None - Past Medical History Cardiac Medical History: Reports: Hx Hypertension Pulmonary Medical History: Reports: Hx Asthma, Hx COPD Endocrine Medical History: Reports: Hx Diabetes Mellitus Type 1, Hx Diabetes Mellitus Type 2 Renal/ Medical History: Denies: Hx Peritoneal Dialysis Psychiatric Medical History: Reports: Hx Depression Past Surgical History: Reports: Hx Orthopedic Surgery, Other - None significant reported by the patient - Immunizations Hx Diphtheria, Pertussis, Tetanus Vaccination: Yes Physical Exam - Vital signs Vitals: Temp Pulse Resp BP Pulse Ox 97.4 F 86 20 146/67 H 97 11/06/16 09:38 11/06/16 09:38 11/06/16 09:38 11/06/16 09:38 11/06/16 09:38 Course - Vital Signs Vital signs: Temp Pulse Resp BP Pulse Ox 97.4 F 86 20 146/67 H 97 11/06/16 09:38 11/06/16 09:38 11/06/16 09:38 11/06/16 09:38 11/06/16 09:38
[2016-11-06 10:39] LABS: ABSOLUTE BASOPHILS # (AUTO) 0.1 10^3/uL (0.0-0.2); ABSOLUTE EOSINOPHILS # (AUTO) 0.6 10^3/uL (0.0-0.6); ABSOLUTE LYMPHOCYTES (AUTO) 2.5 10^3/uL (0.5-4.7); ABSOLUTE MONOCYTES (AUTO) 0.7 10^3/uL (0.1-1.4); ABSOLUTE NEUT (AUTO) 5.6 10^3/uL (1.7-8.2); EOSINOPHILS % (AUTO) 6.4 % (0-6); HEMATOCRIT 39.4 % (36.0-47.0); HEMOGLOBIN 12.5 g/dL (12.0-15.5); HGB HCT DIFFERENCE -1.9; MEAN CORPUSCULAR HEMOGLOBIN 29.7 pg (27.0-33.4); MEAN CORPUSCULAR HGB CONC 31.6 g/dL (32.0-36.0); MEAN CORPUSCULAR VOLUME 94 fl (80-97); MONOCYTES % (AUTO) 7.7 % (3-13); RED BLOOD COUNT 4.19 10^6/uL (3.72-5.28); RED CELL DISTRIBUTION WIDTH 15.4 % (11.5-14.0); SEGMENTED NEUTROPHILS % (AUTO) 58.9 % (42-78); WHITE BLOOD COUNT 9.6 10^3/uL (4.0-10.5)
[2016-11-06 11:00] LABS: ALANINE AMINOTRANSFERASE 26 U/L (9-52); ALBUMIN 3.8 g/dL (3.5-5.0); ALKALINE PHOSPHATASE 149 U/L (38-126); ANION GAP 10 (5-19); ASPARTATE AMINO TRANSFERASE 17 U/L (14-36); BILIRUBIN,DIRECT 0.3 mg/dL (0.0-0.4); BILIRUBIN,TOTAL 0.5 mg/dL (0.2-1.3); BLOOD UREA NITROGEN 15 mg/dL (7-20); CALCIUM 9.6 mg/dL (8.4-10.2); CARBON DIOXIDE 27 mmol/L (22-30); CHLORIDE 97 mmol/L (98-107); CREATININE RESULT 0.83 mg/dL (0.52-1.25); POTASSIUM 4.6 mmol/L (3.6-5.0); SODIUM 133.9 mmol/L (137-145)
[2016-11-06 11:04] LABS: ALCOHOL < 10 mg/dL (NONE DETECTED)
[2016-11-06 11:11] LABS: GLUCOSE 529 mg/dL (75-110)
--- NOTE | 2016-11-06 11:12 | ER Document Report ---
ED Substance Abuse / Acc. OD - General Mode of Arrival: Ambulatory Information source: Patient, Friend TRAVEL OUTSIDE OF THE [place] IN LAST 30 DAYS: No - HPI Patient complains to provider of: Alcohol abuse Associated Symptoms: Other - See above <ELAINA GUILLEN - Last Filed: 11/06/16 11:35> <ZULY HARVEY - Last Filed: 11/06/16 19:18> - General Chief Complaint: ETOH Abuse Stated Complaint: POSSIBLE ETOH Time Seen by Provider: 11/06/16 10:20 Notes: Patient is a 71 year old female who presents to the emergency department for EtOH abuse. Patient states that she would like to detox and that she is having difficulty taking care of her home where she lives by herself. Patient states that she was sober for 22.5 years but started again in 2008, does not state a cause for this. Patient reports she is currently "having difficulty waking up". Patient's friend is more concerned about the patient taking her regular medications which he says she has stopped for the last 10 days. Per friend patient has been off of her medications before and becomes lethargic and starts talking to people who aren't there. (ELAINA GUILLEN) - Related Data Allergies/Adverse Reactions: valsartan [From Diovan] Allergy (Unknown, Verified 11/06/16 09:37) clindamycin [Clindamycin] Allergy (Verified 11/06/16 09:37) Penicillins Allergy (Verified 11/06/16 09:37) Past Medical History - General Information source: Patient, Friend - Social History Smoking Status: Current Every Day Smoker Drug Abuse: None Family History: Reviewed & Not Pertinent, CAD Patient has suicidal ideation: No Patient has homicidal ideation: No - Past Medical History Cardiac Medical History: Reports: Hx Hypertension Pulmonary Medical History: Reports: Hx Asthma, Hx COPD Endocrine Medical History: Reports: Hx Diabetes Mellitus Type 1, Hx Diabetes Mellitus Type 2 Psychiatric Medical History: Reports: Hx Depression Past Surgical History: Reports: Hx Orthopedic Surgery, Other - None significant reported by the patient - Immunizations Hx Diphtheria, Pertussis, Tetanus Vaccination: Yes Hx Pneumococcal Vaccination: 05/24/11 <ELAINA GUILLEN - Last Filed: 11/06/16 11:35> Review of Systems - Review of Systems Constitutional: Other - EtOH abuse EENT: No symptoms reported Cardiovascular: No symptoms reported Respiratory: No symptoms reported Gastrointestinal: No symptoms reported Genitourinary: No symptoms reported Female Genitourinary: No symptoms reported Musculoskeletal: No symptoms reported Skin: No symptoms reported Hematologic/Lymphatic: No symptoms reported Neurological/Psychological: No symptoms reported -: Yes All other systems reviewed and negative <ELAINA GUILLEN - Last Filed: 11/06/16 11:35> Physical Exam - Vital signs Interpretation: Normal - General General appearance: Appears well, Other - Drowsy but arrousabld - HEENT Head: Normocephalic, Atraumatic - Respiratory Respiratory status: No respiratory distress Chest status: Nontender Breath sounds: Normal Chest palpation: Normal - Cardiovascular Rhythm: Regular Heart sounds: Normal auscultation Murmur: No - Extremities General upper extremity: Normal inspection General lower extremity: Normal inspection - Neurological Neuro grossly intact: Yes Cognition: Normal Orientation: AAOx4 Cecil Coma Scale Eye Opening: Spontaneous Zac Coma Scale Verbal: Oriented Zac Coma Scale Motor: Obeys Commands Cecil Coma Scale Total: 15 Speech: Normal - Psychological Associated symptoms: Normal affect, Normal mood - Skin Skin Temperature: Warm Skin Moisture: Dry Skin Color: Normal <ELAINA GUILLEN - Last Filed: 11/06/16 11:35> Course - Laboratory Result Diagrams: 11/06/16 10:30 11/06/16 10:30 <ELAINA GUILLEN - Last Filed: 11/06/16 11:35> - Laboratory Result Diagrams: 11/06/16 10:30 11/06/16 10:30 <ZULY HARVEY - Last Filed: 11/06/16 19:18> - Re-evaluation Re-evalutation: 11/06/16 12:19 Social work has been consulted for this patient regarding her medical noncompliance and alcoholism. 11/06/16 12:56 Patient was seen by social work and inform the health care social worker that she does not want any home services. She apparently did also not want any help quitting drinking. Friend who is in the room with her who has been acting as her smog technician is very disgruntled and would like her admitted to the hospital. I have explained to him that I cannot admit her to the hospital which is why I am trying to set up social work services to check on her, ensure she is taking her medications, and help her stop drinking. Friend told me that I have an attitude problem and left the room. Patient is adamant that she does not want to stay in the hospital, she did not want help from social work, and she will stop drinking on her own. I have informed her that this can be potentially dangerous. Patient states that she has her medications at home she will take them and her frontal make sure that she is taking them. I have explained to the patient that it seems that her friend who is acting as her smog technician is getting burned out and the patient may need to take further responsibility for her own health care. Patient assures me that she well. She does not want any social work services, and she will not be staying in the hospital. Asked me if her discharge paperwork is ready. (ZULY HARVEY) - Vital Signs Vital signs: Temp Pulse Resp BP Pulse Ox 97.9 F 82 16 144/77 H 94 11/06/16 13:39 11/06/16 13:36 11/06/16 13:36 11/06/16 13:36 11/06/16 13:39 - Laboratory Laboratory results interpreted by me: 11/06/16 11/06/16 11/06/16 10:30 10:30 12:38 MCHC 31.6 L RDW 15.4 H Eosinophils % 6.4 H Sodium 133.9 L Chloride 97 L Glucose 529 H* Alkaline Phosphatase 149 H Urine Glucose (UA) >=500 H Urine Ketones TRACE H Ur Leukocyte Esterase SMALL H Salicylates < 1.0 L Acetaminophen < 10 L Discharge <ELAINA GUILLEN - Last Filed: 11/06/16 11:35> <ZULY HARVEY - Last Filed: 11/06/16 19:18> - Discharge Clinical Impression: Alcohol abuse, Medical non-compliance Type 2 diabetes mellitus with hyperglycemia Qualifiers: Diabetes mellitus superintendent terminal insulin use: with nursing home use Qualified Code(s): E11.65 - Type 2 diabetes mellitus with hyperglycemia Condition: Stable Disposition: HOME, SELF-CARE Instructions: Chronic Alcoholism ([facility]), Hyperglycemia ([facility]) Referrals: BARBARA FRANZ MD [Primary Care Provider] - 11/09/16 Scribe Attestation: 11/06/16 13:00 I personally performed the services described in the documentation, reviewed and edited the documentation which was dictated to the scribe in my presence, and it accurately records my words and actions. (ZULY HARVEY) Scribe Documentation - Scribe Written by Scribe:: magda Avitia, 11/06/16, 1140 acting as scribe for :: Jeremy <ELAINA GUILLEN - Last Filed: 11/06/16 11:35>
[2016-11-06] MEDS ORDERED: NORMAL SALINE 1000 ML 1,000 ML IV ONE (11:20)
[2016-11-06] MEDS ORDERED: FOLIC ACID 1 MG TABLET PO ONE (11:38)
[2016-11-06] MEDS ORDERED: THIAMINE HCL 100 MG TABLET PO ONE (11:38)
[2016-11-06 13:03] LABS: APPEARANCE,URINE SLIGHTLY-CLOUDY; BILIRUBIN,URINE NEGATIVE (NEGATIVE); GLUCOSE, URINE >=500 mg/dL (NEGATIVE); KETONES,URINE TRACE mg/dL (NEGATIVE); LEUKOCYTE ESTERASE,URINE SMALL (NEGATIVE); NITRITE,URINE NEGATIVE (NEGATIVE); PROTEIN,URINE NEGATIVE (NEGATIVE); URINE SPECIFIC GRAVITY 1.031; UROBILINOGEN,URINE NEGATIVE mg/dL (<2.0)
[2016-11-06] MEDS ORDERED: INSULIN REG, HUMAN 100 UNIT/ML 3 ML VIAL (PYX) SUBCUT ONE (13:06)
[2016-11-06 13:16] LABS: URINE BARBITURATES SCREEN NEGATIVE; URINE METHADONE SCREEN NEGATIVE; URINE OPIATES LOW NEGATIVE; URINE PHENCYCLIDINE SCREEN NEGATIVE
[2016-11-06 13:39] VITALS: BP 144/77
--- NOTE | 2016-11-06 17:48 | EKG REPORT ---
SEVERITY:- BORDERLINE ECG - SINUS RHYTHM BORDERLINE R WAVE PROGRESSION, ANTERIOR LEADS : Confirmed by: Heron Jha 06-Nov-2016 17:47:48
== END 2016-11-06 13:39 | disposition home or self-care (01) ==
LOC: ER 09:34
DX: F10.10 Alcohol abuse, uncomplicated (principal); Z91.14 Patient's other noncompliance with medication regimen; E11.65 Type 2 diabetes mellitus with hyperglycemia; F17.200 Nicotine dependence, unspecified, uncomplicated; I10 Essential (primary) hypertension; J45.909 Unspecified asthma, uncomplicated; J44.9 Chronic obstructive pulmonary disease, unspecified; Z88.0 Allergy status to penicillin; Z88.3 Allergy status to other anti-infective agents
CPT/HCPCS: 93005; 99284; 96360; 36415; 82962; 80307 ×4; 85025; 80053; 81001; 93010; A9270 ×3; J7030; J1815

== ENCOUNTER 2017-02-08 08:11 | Inpatient (IN) | payer MEDICARE, BC, OTHER ==
--- NOTE | 2017-02-08 08:22 | ER Document Report ---
ED Fall - General Stated Complaint: FALL LEFT THIGH PAIN Time Seen by Provider: 02/08/17 08:19 Notes: 71-year-old female with history of alcoholism and diabetes presents with left thigh pain after falling. She has had multiple falls but this last one occurred about 1 PM yesterday. She states that she laid on the floor for quite a while finally called a friend. She has been unable to ambulate secondary to pain since this occurred. Reports tetanus shot in last 5 years. Denies any other acute injury though she states her right chest was injured in a fall recently. No vomiting or diarrhea. Denies fever or other medical illness. TRAVEL OUTSIDE OF THE [place] IN LAST 30 DAYS: No - Related data Allergies/Adverse Reactions: valsartan [From Diovan] Allergy (Unknown, Verified 02/08/17 08:51) clindamycin [Clindamycin] Allergy (Verified 02/08/17 08:51) Penicillins Allergy (Verified 02/08/17 08:51) Past Medical History - Social History Smoking Status: Current Every Day Smoker Frequency of alcohol use: Heavy Family History: Reviewed & Not Pertinent, CAD - Past Medical History Cardiac Medical History: Reports: Hx Hypertension Pulmonary Medical History: Reports: Hx Asthma, Hx COPD Endocrine Medical History: Reports: Hx Diabetes Mellitus Type 1, Hx Diabetes Mellitus Type 2 Renal/ Medical History: Denies: Hx Peritoneal Dialysis Psychiatric Medical History: Reports: Hx Depression Past Surgical History: Reports: Hx Orthopedic Surgery, Other - None significant reported by the patient - Immunizations Hx Diphtheria, Pertussis, Tetanus Vaccination: Yes Hx Pneumococcal Vaccination: 05/24/11 Review of Systems - Review of Systems -: Yes All other systems reviewed and negative Physical Exam - Vital signs Vitals: Resp 15 02/08/17 08:48 - Notes Notes: GENERAL: VS as per nursing doc. chronically ill-appearing, in no acute distress. HEAD: Atraumatic, normocephalic. EYES: Pupils equal round and reactive to light, extraocular movements intact, sclera anicteric, no conjunctival injection or discharge. ENT: Nares patent, oropharynx clear without exudates, dry mucous membranes. NECK: Normal range of motion, supple without lymphadenopathy. LUNGS: Coarse breath sounds bilaterally, chest wall with mild right lateral tenderness to palpation without crepitance HEART: Regular rate and rhythm without murmurs. ABDOMEN: Soft, non-tender BACK: No CVA tenderness or spine tenderness. EXTREMITIES: Prior toe amputations noted. She has tenderness over the mid to proximal left femur. She holds this flexed at both the knee and hip. NEUROLOGICAL: Cranial nerves grossly intact. Normal speech. Normal sensory and motor exams. No gross cerebellar abnormalities. PSYCH: Normal mood, normal affect. SKIN: Warm, dry, abrasions noted to left toes as well as right hand. Course - Re-evaluation Re-evalutation: 02/08/17 11:21 Dr. Teresa orozco. - Vital Signs Vital signs: Temp Pulse Resp BP Pulse Ox 98.7 F 26 H 143/77 H 87 L 02/08/17 12:00 02/08/17 12:00 02/08/17 09:03 02/08/17 12:00 - Laboratory Result Diagrams: 02/08/17 08:40 02/08/17 08:40 Laboratory results interpreted by me: 02/08/17 02/08/17 02/08/17 08:40 08:40 10:22 WBC 14.1 H RDW 16.4 H Absolute Neutrophils 10.6 H Sodium 136.1 L Potassium 5.3 H Chloride 96 L Glucose 279 H Direct Bilirubin 0.5 H Alkaline Phosphatase 132 H Creatine Kinase 294 H Urine Protein 30 H Urine Glucose (UA) >=500 H Urine Ketones TRACE H Urine Blood MODERATE H Urine Nitrite POSITIVE H Ur Leukocyte Esterase MODERATE H - Diagnostic Test Radiology reviewed: Image reviewed, Reports reviewed - Nondisplaced intertrochanteric left hip fracture - EKG Interpretation by Me EKG shows normal: Sinus rhythm - Rate 82 borderline R-wave progression consistent with October 2016. No clear ischemia. EKG essentially unchanged from November 06, 2016 - Consults Dr. Anton Time consulted: 11:35 - Full Tele Admit Consulted provider: will see as inpatient - Discussed with Dr. Moore Discharge - Discharge Clinical Impression: Intertrochanteric fracture of left femur, UTI (urinary tract infection) Condition: Fair Disposition: ADMITTED INPATIENT Admitting Provider: Dr. Anton Unit Admitted: Telemetry
[2017-02-08] MEDS ORDERED: NORMAL SALINE 1000 ML 1,000 ML IV ONE ×2 (08:27→11:17)
[2017-02-08 08:55] LABS: ABSOLUTE BASOPHILS # (AUTO) 0.1 10^3/uL (0.0-0.2); ABSOLUTE EOSINOPHILS # (AUTO) 0.1 10^3/uL (0.0-0.6); ABSOLUTE LYMPHOCYTES (AUTO) 2.3 10^3/uL (0.5-4.7); ABSOLUTE MONOCYTES (AUTO) 0.9 10^3/uL (0.1-1.4); ABSOLUTE NEUT (AUTO) 10.6 10^3/uL (1.7-8.2); BASOPHILS % (AUTO) 0.7 % (0-2); HEMATOCRIT 43.5 % (36.0-47.0); HEMOGLOBIN 14.2 g/dL (12.0-15.5); HGB HCT DIFFERENCE -0.9; LYMPHOCYTES % (AUTO) 16.6 % (13-45); MEAN CORPUSCULAR HEMOGLOBIN 29.7 pg (27.0-33.4); MEAN CORPUSCULAR HGB CONC 32.7 g/dL (32.0-36.0); MEAN CORPUSCULAR VOLUME 91 fl (80-97); MONOCYTES % (AUTO) 6.6 % (3-13); RED BLOOD COUNT 4.79 10^6/uL (3.72-5.28); RED CELL DISTRIBUTION WIDTH 16.4 % (11.5-14.0); SEGMENTED NEUTROPHILS % (AUTO) 75.1 % (42-78); WHITE BLOOD COUNT 14.1 10^3/uL (4.0-10.5)
[2017-02-08] MEDS ORDERED: MORPHINE SULFATE 10 MG/ML INJ IV ONE (08:56)
[2017-02-08] MEDS ORDERED: ONDANSETRON HCL INJ/PF 4 MG/2 ML SDV IV ONE (08:57)
[2017-02-08 09:00] LABS: PROTHROMBIN TIME 13.3 SEC (11.4-15.4)
[2017-02-08 09:14] LABS: ALANINE AMINOTRANSFERASE 30 U/L (9-52); ALKALINE PHOSPHATASE 132 U/L (38-126); ANION GAP 10 (5-19); ASPARTATE AMINO TRANSFERASE 32 U/L (14-36); BILIRUBIN,DIRECT 0.5 mg/dL (0.0-0.4); BLOOD UREA NITROGEN 16 mg/dL (7-20); CALCIUM 9.7 mg/dL (8.4-10.2); CARBON DIOXIDE 30 mmol/L (22-30); CHLORIDE 96 mmol/L (98-107); CREATINE KINASE 294 U/L (30-135); CREATININE RESULT 0.64 mg/dL (0.52-1.25); GLUCOSE 279 mg/dL (75-110); POTASSIUM 5.3 mmol/L (3.6-5.0); SODIUM 136.1 mmol/L (137-145); TOTAL PROTEIN 7.3 g/dL (6.3-8.2)
[2017-02-08 09:15] LABS: ALCOHOL < 10 mg/dL (NONE DETECTED)
--- NOTE | 2017-02-08 10:10 | RADIOLOGY REPORT (SQ) ---
EXAM DESCRIPTION: CHEST SINGLE VIEW COMPLETED DATE/TIME: 02/08/2017 10:03 am REASON FOR STUDY: trauma with pain COMPARISON: 04/26/2016 EXAM PARAMETERS: NUMBER OF VIEWS: One view. TECHNIQUE: Single frontal radiographic view of the chest acquired. RADIATION DOSE: NA LIMITATIONS: None. FINDINGS: LUNGS AND PLEURA: No opacities, masses or pneumothorax. No pleural effusion. MEDIASTINUM AND HILAR STRUCTURES: No masses. Contour normal. HEART AND VASCULAR STRUCTURES: Heart normal in size. Normal vasculature. BONES: No acute findings. HARDWARE: None in the chest. OTHER: No other significant finding. IMPRESSION: NO ACUTE RADIOGRAPHIC FINDING IN THE CHEST. TECHNICAL DOCUMENTATION: JOB ID: [id number]
--- NOTE | 2017-02-08 10:11 | RADIOLOGY REPORT (SQ) ---
EXAM DESCRIPTION: FEMUR LEFT COMPLETED DATE/TIME: 02/08/2017 10:03 am REASON FOR STUDY: Trauma with pain COMPARISON: None. NUMBER OF VIEWS: Two views. TECHNIQUE: Two radiographic images acquired of the left femur to include hip and knee in at least on e projection. LIMITATIONS: None. FINDINGS: MINERALIZATION: Normal. BONES: There is a nondisplaced intratrochanteric left hip fracture. SOFT TISSUES: No obvious swelling or foreign body. OTHER: No other significant finding. IMPRESSION: Nondisplaced left intratrochanteric hip fracture. TECHNICAL DOCUMENTATION: JOB ID: [id number] [employer]- All Rights Reserved
[2017-02-08 10:51] LABS: APPEARANCE,URINE CLOUDY; BILIRUBIN,URINE NEGATIVE (NEGATIVE); GLUCOSE, URINE >=500 mg/dL (NEGATIVE); KETONES,URINE TRACE mg/dL (NEGATIVE); LEUKOCYTE ESTERASE,URINE MODERATE (NEGATIVE); NITRITE,URINE POSITIVE (NEGATIVE); PROTEIN,URINE 30 mg/dL (NEGATIVE); URINE SPECIFIC GRAVITY 1.025; UROBILINOGEN,URINE NEGATIVE mg/dL (<2.0)
[2017-02-08] MEDS ORDERED: CEFTRIAXONE 1 GM/D5W RTU 1 GM/50 ML RTUPB IV ONE (11:18)
[2017-02-08] MEDS ORDERED: PROMETHAZINE HCL 25 MG SUPP.RECT PR PRN (12:10)
[2017-02-08] MEDS ORDERED: ACETAMINOPHEN 325 MG TABLET PO PRN (12:10)
[2017-02-08] MEDS ORDERED: IPRATROPIUM/ALBUTEROL 0.5-2.5 MG/3 ML AMPUL NEB PRN (12:10)
[2017-02-08] MEDS ORDERED: ONDANSETRON HCL INJ/PF 4 MG/2 ML SDV IV PRN (12:10)
[2017-02-08] MEDS ORDERED: MAG HYDROX/AL HYDROX/SIMETH SUSP 30 ML UDCUP PO PRN (12:10)
--- NOTE | 2017-02-08 13:07 | EKG REPORT ---
SEVERITY:- ABNORMAL ECG - SINUS RHYTHM BORDERLINE R WAVE PROGRESSION, ANTERIOR LEADS , CONSIDER OLD ANTERIOR RI : Confirmed by: Isma Cohen MD 08-Feb-2017 13:06:47
[2017-02-08] MEDS ORDERED: DEXTROSE 50%-WATER 25 GM/50 ML DISP.SYRIN IV PRN ×2 (13:11)
[2017-02-08] MEDS ORDERED: GLUCAGON,HUMAN RECOMB 1 MG INJ IM PRN (13:11)
[2017-02-08] MEDS ORDERED: DEXTROSE 40% GEL 15 GM TUBE PO PRN ×2 (13:11)
[2017-02-08] MEDS ORDERED: LORAZEPAM INJ 2 MG/1 ML VIAL IV PRN (13:25)
[2017-02-08] MEDS ORDERED: FOLIC ACID 1 MG TABLET PO ONE (13:30)
[2017-02-08] MEDS ORDERED: DIAZEPAM 5 MG TABLET PO ONE (13:30)
[2017-02-08] MEDS ORDERED: HEPARIN SOD (PORCINE) 5,000 UNIT/ML 1 ML SYRINGE SUBCUT SCH (14:00)
[2017-02-08] MEDS ORDERED: THIAMINE HCL 100 MG TABLET PO ONE (14:00)
--- NOTE | 2017-02-08 14:46 | PDOC H&P ---
History of Present Illness Admission Date/PCP: 02/08/17 11:59 BARBARA FRANZ MD History of Present Illness: VIVEK MAGUIRE is a 71 year old female with past medical history of hypertension, insulin-dependent diabetes mellitus, COPD, depression, peripheral vascular disease, restless leg syndrome, hyperlipidemia who presents after a mechanical fall. Patient reports that she fell on Wednesday at about 1330. And was on the ground for approximately 12 hours before being able to crawl to the phone and activated EMS. Patient reports she followed proximally 3 times in the past several days before this. She reports prior to her fall she had felt fatigued but she denied any chest pain, double or blurred vision, or neurologic symptoms. Patient reported the only thing that has been bothering her recently is that she has been having some intermittent bright breakthrough vaginal bleeding. Patient reports that she had a scheduled appointment with her primary care physician this week to discuss endometrial biopsy for this condition. Patient is unaware of her medications at this time and they are currently undergoing reconciliation by the pharmacy not available to me at this time due to the emergent nature of this. Past Medical History Cardiac Medical History: Reports: Hypertension Pulmonary Medical History: Reports: Asthma, Chronic Obstructive Pulmonary Disease (COPD) Endocrine Medical History: Reports: Diabetes Mellitus Type 2 Psychiatric Medical History: Reports: Depression Past Surgical History Past Surgical History: Reports: Adenoidectomy, Orthopedic Surgery, Tonsillectomy , Other - Cataract Social History Smoking Status: Current Every Day Smoker Cigarettes Packs Per Day: 1 Frequency of Alcohol Use: Heavy Amount of Alcoholic Beverages Per Day: 1/5 scotch/day Hx Recreational Drug Use: No Drugs: None Hx Prescription Drug Abuse: No - Advance Directive Resuscitation Status: Full Code Surrogate healthcare decision maker:: Jon Joseph power of erisa attorney Family History Family History: CAD, Malignancy - Throat cancer, Other - Alzheimer's Parental Family History Reviewed: Yes Children Family History Reviewed: Yes Sibling(s) Family History Reviewed.: Yes Medication/Allergy Allergies/Adverse Reactions: valsartan [From Diovan] Allergy (Unknown, Verified 02/08/17 08:51) clindamycin [Clindamycin] Allergy (Verified 02/08/17 08:51) Penicillins Allergy (Verified 02/08/17 08:51) Review of Systems Constitutional: PRESENT: fatigue. ABSENT: chills, fever(s), headache(s), weight gain, weight loss Eyes: ABSENT: visual disturbances Ears: ABSENT: hearing changes Cardiovascular: ABSENT: chest pain, dyspnea on exertion, edema, orthropnea, palpitations Respiratory: ABSENT: cough, hemoptysis Gastrointestinal: ABSENT: abdominal pain, constipation, diarrhea, hematemesis, hematochezia, nausea, vomiting Genitourinary: ABSENT: dysuria, hematuria Musculoskeletal: PRESENT: deformity, joint swelling Integumentary: PRESENT: other - Multiple ecchymosis. ABSENT: rash, wounds Neurological: PRESENT: frequent falls. ABSENT: abnormal gait, abnormal speech, confusion, dizziness, focal weakness, syncope Psychiatric: ABSENT: anxiety, depression, homidical ideation, suicidal ideation Endocrine: ABSENT: cold intolerance, heat intolerance, polydipsia, polyuria Hematologic/Lymphatic: PRESENT: easy bleeding, easy bruising Physical Exam Vital Signs: Temp Pulse Resp BP Pulse Ox 98.7 F 26 H 143/77 H 87 L 02/08/17 12:00 02/08/17 12:00 02/08/17 09:03 02/08/17 12:00 Intake & Output 02/07/17 02/08/17 02/09/17 06:59 06:59 06:59 Weight 70 kg General appearance: PRESENT: disheveled, mild distress, well-developed, well- nourished Head exam: PRESENT: atraumatic, normocephalic Eye exam: PRESENT: conjunctiva pink, EOMI, PERRLA. ABSENT: scleral icterus Ear exam: PRESENT: normal external ear exam Mouth exam: PRESENT: dry mucosa, tongue midline Neck exam: ABSENT: JVD, lymphadenopathy, thyromegaly, tracheal deviation Respiratory exam: PRESENT: clear to auscultation lauren, prolonged expiratory phas , symmetrical, unlabored. ABSENT: accessory muscle use, crackles, rales, retraction, rhonchi, stridor, tachypnea, wheezes Cardiovascular exam: PRESENT: RRR, +S1, +S2, systolic murmur - 2/6 llsb. ABSENT : diastolic murmur, rubs Pulses: PRESENT: +1 pedal pulses bilateral Vascular exam: PRESENT: normal capillary refill GI/Abdominal exam: PRESENT: normal bowel sounds, soft. ABSENT: distended, firm , guarding, mass, Monge's sign, organolmegaly, rebound, rigid, tenderness Rectal exam: PRESENT: deferred Extremities exam: PRESENT: clubbing, +1 edema, other - Absent left toe. ABSENT : calf tenderness, pedal edema, tenderness Musculoskeletal exam: PRESENT: deformity - Left leg with foot deviated Neurological exam: PRESENT: alert, awake, oriented to person, oriented to place , oriented to time, oriented to situation, CN II-XII grossly intact. ABSENT: motor sensory deficit Psychiatric exam: PRESENT: appropriate affect, normal mood. ABSENT: homicidal ideation, suicidal ideation Skin exam: PRESENT: dry, warm. ABSENT: cyanosis, intact - Red crusting bilateral foot exudate, rash Results Impressions: Femur X-Ray 02/08/17 08:20 IMPRESSION: Nondisplaced left intratrochanteric hip fracture. Chest X-Ray 02/08/17 08:21 IMPRESSION: NO ACUTE RADIOGRAPHIC FINDING IN THE CHEST. Assessment & Plan - Diagnosis (1) Intertrochanteric fracture of left femur Qualifiers: Encounter type: initial encounter Fracture type: closed Is this a current diagnosis for this admission?: Yes Plan: Have consulted orthopedic surgery Review of patient's EKG reveals likely prior inferior HI. This is old in comparison to patient's prior EKGs. Will obtain an echocardiogram. (2) Alcohol abuse Is this a current diagnosis for this admission?: Yes Plan: Patient reports that she drinks approximately 1/5 of alcohol a day and has had difficulties with the DTs in the past. Patient's last drink was more than [address] on thiamine, folic acid, scheduled Valium, and Ativan as needed. (3) Insulin dependent diabetes mellitus Is this a current diagnosis for this admission?: Yes Plan: Check hemoglobin A1c. Please on sliding scale insulin and carb control diet. (4) UTI (urinary tract infection) Qualifiers: Urinary tract infection type: acute cystitis Hematuria presence: with hematuria Qualified Code(s): N30.01 - Acute cystitis with hematuria Is this a current diagnosis for this admission?: Yes Plan: Begin patient on Rocephin and send urine for culture (5) Anemia Qualifiers: Anemia type: unspecified type Qualified Code(s): D64.9 - Anemia, unspecified Is this a current diagnosis for this admission?: Yes Plan: Type and screen. Monitor patient's hemoglobin and transfuse as needed (6) Anxiety Is this a current diagnosis for this admission?: Yes Plan: On scheduled Valium (7) COPD (chronic obstructive pulmonary disease) Qualifiers: COPD type: unspecified COPD Qualified Code(s): J44.9 - Chronic obstructive pulmonary disease, unspecified Is this a current diagnosis for this admission?: Yes Plan: Place patient on as needed breathing treatments. 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 (11) Athletes foot Qualifiers: Laterality: bilateral Qualified Code(s): B35.3 - Tinea pedis Is this a current diagnosis for this admission?: Yes Plan: Will place patient on foot soaks and nystatin/triamcinolone cream as tolerated with Bactroban to affected areas. - Time Time Spent: 50 to 70 Minutes Medications reviewed and adjusted accordingly: Yes Anticipated discharge: Acute Rehab - Inpatient Certification Based on my medical assessment, after consideration of the patient's comorbidities, presenting symptoms, or acuity I expect that the services needed warrant INPATIENT care.: Yes I certify that my determination is in accordance with my understanding of Medicare's requirements for reasonable and necessary INPATIENT services [42 CFR 412.3e].: Yes Medical Necessity: Need For Continuous Telemetry Monitoring, Need for Pain Control, Need for Surgery Post Hospital Care: D/C Retail Banker Documentation
[2017-02-08] MEDS ORDERED: NICOTINE 21 MG/24 HR PATCH.TD24 TD ONE (15:00)
[2017-02-08] MEDS: INSULIN LISPRO 100 UNIT/ML 3 ML VIAL SUBCUT PRN (16:39)
[2017-02-08] MEDS: MORPHINE SULFATE 10 MG/ML INJ IV PRN (16:39)
[2017-02-08] MEDS: DOCUSATE SODIUM 100 MG CAPSULE PO SCH (17:27)
[2017-02-08] MEDS: DIAZEPAM 5 MG TABLET PO SCH ×2 (17:28→23:45)
[2017-02-08] MEDS ORDERED: DOCUSATE SODIUM 100 MG/10 ML UDC PO SCH (18:00)
[2017-02-08] MEDS ORDERED: (PENDING PHARMACY ID) (Hydroxyzine Hcl [Atarax 25 Mg Tablet] 25 MG) PO PRN (19:00)
[2017-02-08] MEDS ORDERED: HYDROXYZINE HCL 10 MG TABLET PO PRN (19:17)
--- NOTE | 2017-02-08 20:06 | PDOC CONSULTATION ---
Consultation Consult Date: 02/08/17 Attending physician:: ALEXIS DISLA Consult reason:: Preop clearance, abnormal EKG History of Present Illness Admission Date/PCP: 02/08/17 12:10 BARBARA FRANZ MD Patient complains of: Left hip fracture History of Present Illness: VIVEK MAGUIRE is a 71 year old female with past medical history of hypertension, insulin-dependent diabetes mellitus, COPD, depression, peripheral vascular disease, restless leg syndrome, hyperlipidemia who presents after a mechanical fall. Patient reports that she fell on Wednesday at about 1330. And was on the ground for approximately 12 hours before being able to crawl to the phone and activated EMS. Patient reports she fell approximately 3 times in the past several days before this. She reports prior to her fall she had felt fatigued but she denied any chest pain, double or blurred vision, or neurologic symptoms. Patient reported the only thing that has been bothering her recently is that she has been having some intermittent bright breakthrough vaginal bleeding. Patient reports that she had a scheduled appointment with her primary care physician this week to discuss endometrial biopsy for this condition. Patient is unaware of her medications at this time and they are currently undergoing reconciliation by the pharmacy not available to me at this time due to the emergent nature of this. On repeated questioning, patient denied loss of consciousness, seizure disorder, chest pain or any significant shortness of breath. Past Medical History Cardiac Medical History: Reports: Hypertension Pulmonary Medical History: Reports: Asthma, Chronic Obstructive Pulmonary Disease (COPD) Endocrine Medical History: Reports: Diabetes Mellitus Type 1, Diabetes Mellitus Type 2 Psychiatric Medical History: Reports: Depression Past Surgical History Past Surgical History: Reports: Adenoidectomy, Orthopedic Surgery, Tonsillectomy , Other - Cataract Social History Information Source: Patient Smoking Status: Current Every Day Smoker Cigarettes Packs Per Day: 1 Number of Years Smokin Last Time Smoked: 02/06/2018 Frequency of Alcohol Use: Heavy Hx Recreational Drug Use: No Drugs: None Hx Prescription Drug Abuse: No - Advance Directive Resuscitation Status: Full Code Surrogate healthcare decision maker:: Surrogate decision-maker is a friend by the name of Jon Joseph Family History Family History: CAD, Malignancy - Throat cancer, Other - Alzheimer's Parental Family History Reviewed: Yes Children Family History Reviewed: Yes Sibling(s) Family History Reviewed.: Yes Medication/Allergy Home Medications: Amitriptyline HCl [Elavil 25 mg Tablet] 25 mg PO Q8 02/08/17 Atorvastatin Calcium [Lipitor 10 mg Tablet] 10 mg PO DAILY 02/08/17 Cholecalciferol (Vitamin D3) [Vitamin D3] 5,000 unit PO DAILY 02/08/17 Cyanocobalamin (Vitamin B-12) [Vitamin B-12 1000 mcg Tablet] 1,000 mcg PO DAILY 02/08/17 Diazepam [Valium 5 mg Tablet] 5 mg PO QHS 02/08/17 Duloxetine HCl [Cymbalta] 60 mg PO DAILY 02/08/17 Ferrous Sulfate [Feosol 325 mg Tablet] 325 mg PO DAILY 02/08/17 Hydroxyzine HCl [Atarax 25 mg Tablet] 25 mg PO HSP PRN 02/08/17 Metformin HCl [Glucophage] 1,000 mg PO BIDBS 02/08/17 Pramipexole Di-HCl [Mirapex ER] 3 mg PO QHS 02/08/17 Pyridoxine HCl [Vitamin B-6] 100 mg PO DAILY 02/08/17 Ramipril [Altace 10 mg Capsule] 10 mg PO DAILY 02/08/17 Thiamine HCl [Thiamine 100 mg Tablet] 100 mg PO DAILY 02/08/17 Allergies/Adverse Reactions: valsartan [From Diovan] Allergy (Unknown, Verified 02/08/17 08:51) Penicillins Allergy (Verified 02/08/17 08:51) exenatide [From Byetta] Adverse Reaction (Severe, Verified 02/08/17 14:52) Migraine Review of Systems Review of Systems: Please see history of present illness and past medical history as wall. Constitutional: No fever or chills reported. Head : No recent chronic headaches, recent head injury. Eyes: No recent eye pain, diplopia, redness, discharge, acute visual changes. Ears: No recent chronic ear pain, acute hearing loss, ear discharge. Oral cavity: No recent ulcerations, bleeding, oral cavity discomfort. Neck: No recent acute neck pain reported. Hematologic: No recent easy bruising or bleeding or hematologic malignancy reported. Lymphatic: No recent lymphatic malignancy, chronic lymphadenopathy reported yet Cardiovascular system review: See history of present illness. Respiratory system review: No recent chronic cough, hemoptysis, blood clots in the lungs reported. Mild Shortness of breath on exertion Gastrointestinal system review: Negative for any recent acute or chronic abdominal pain, hematemesis, melena, recent change in bowel habits. Genitourinary system review: No recent acute or chronic hematuria, flank pain, UTI etc. reported. Vaginal bleed reported intermittently. Skin system review: Negative for any recent abnormal bruising, no rash, no pruritus reported. Neurologic: No prior history of strokes, mini strokes, seizure disorder. Psychologic: No history of major psychosis or major depression reported. Musculoskeletal: Minor aches and pains reported. No acute joint swelling reported. Endocrine: No recent polyuria, polydipsia, recent heat or cold intolerance. Physical Exam Vital Signs: Temp Pulse Resp BP Pulse Ox 98.3 F 85 20 129/58 H 93 02/08/17 16:50 02/08/17 16:50 02/08/17 16:50 02/08/17 16:50 02/08/17 16:50 Intake & Output 02/07/17 02/08/17 02/09/17 06:59 06:59 06:59 Intake Total 130 Output Total 300 Balance -170 Weight 70 kg Exam: GENERAL: well-nourished and in no acute distress. Alert and oriented x3 HEAD: Atraumatic, normocephalic. EYES: Pupils equal round and reactive to light, extraocular movements intact, sclera anicteric, conjunctiva are normal. ENT: TMs normal, nares patent, oropharynx clear without exudates. Moist mucous membranes. No oral ulcerations or bleeding gums noted NECK: supple without lymphadenopathy. Trachea is central. No cervical or axillary lymphadenopathy noted. Carotids are 2+, JVD WNL LUNGS: Respiration seems nonlabored, no significant accessory muscle action noted. Breath sounds clear to auscultation bilaterally and equal noted. No wheezes rales or rhonchi noted. No significant dullness noted on percussion. CHEST: Palpation of the chest wall shows no significant chest wall tenderness. No other significant abnormalities noted. HEART: [place] LOBBY CONCIERGE, No PSH, 1/6 SADIE aortic area, 1/6 navas systolic murmur mitral area, no rubs, no gallops. ABDOMEN: Soft, no significant tenderness appreciated, normoactive bowel sounds. No guarding, no rebound. No rigidity noted . No masses appreciated. EXTREMITIES: Pedal pulses are 1-2+, no calf tenderness noted. No clubbing or cyanosis.trace to 1+ pedal edema noted. Patient noted to have loss of great toe on the left side and multiple superficial excoriation and ulcerations on multiple toes on both legs. NEUROLOGICAL: Focused neurological exam showed no significant neurologic deficit. Normal speech, no focal weakness appreciated. PSYCH: Normal mood, normal affect. Judgment and insight within normal limits. SKIN: No significant ecchymosis, rash, ulcerations or signs of pruritus noted. MUSCULOSKELETAL EXAM: No significant joint swelling noted. Findings consistent with left hip fracture noted. Results Laboratory Results: 02/08/17 13:15 Blood Type A POSITIVE Antibody Screen NEGATIVE 02/08/17 02/08/17 02/08/17 13:15 13:15 18:20 Creatine Kinase 287 H 220 H Troponin I < 0.012 02/08/17 18:20 Creatine Kinase Troponin I < 0.012 EKG Comments: Sinus rhythm, nonprogression of R-wave anterior precordial lead consistent with prior anterior IL Impressions: Femur X-Ray 02/08/17 08:20 IMPRESSION: Nondisplaced left intratrochanteric hip fracture. Chest X-Ray 02/08/17 08:21 IMPRESSION: NO ACUTE RADIOGRAPHIC FINDING IN THE CHEST. Assessment & Plan - Diagnosis (1) Abnormal electrocardiogram Is this a current diagnosis for this admission?: Yes (2) Preoperative cardiovascular examination Is this a current diagnosis for this admission?: Yes (3) Diabetes type 2, uncontrolled Qualifiers: Diabetes mellitus complication status: with unspecified complications Diabetes mellitus senior care insulin use: unspecified senior care insulin use status Qualified Code(s): E11.8 - Type 2 diabetes mellitus with unspecified complications; E11.65 - Type 2 diabetes mellitus with hyperglycemia Is this a current diagnosis for this admission?: Yes (4) Fracture of left hip Qualifiers: Encounter type: initial encounter Fracture type: closed Qualified Code(s) : S72.002A - Fracture of unspecified part of neck of left femur, initial encounter for closed fracture Is this a current diagnosis for this admission?: Yes (5) COPD (chronic obstructive pulmonary disease) Qualifiers: COPD type: unspecified COPD Qualified Code(s): J44.9 - Chronic obstructive pulmonary disease, unspecified Is this a current diagnosis for this admission?: Yes (6) Hypertension Qualifiers: Hypertension type: essential hypertension Qualified Code(s): I10 - Essential (primary) hypertension Is this a current diagnosis for this admission?: Yes (7) Tobacco abuse Is this a current diagnosis for this admission?: Yes (8) Hyperlipidemia Qualifiers: Hyperlipidemia type: unspecified Qualified Code(s): E78.5 - Hyperlipidemia , unspecified Is this a current diagnosis for this admission?: Yes - Notes Notes: Abnormal electrocardiogram: Patient has nonprogression of R-wave but no acute ST -T wave changes. This is indicative of possible prior anterior IL, seems old. Will review 2D echocardiogram once performed. Patient does not seem to be in clinical CHF not having angina at this point therefore cleared for surgery. Preop cardiovascular examination: Patient would be considered higher than average risk but not in the prohibitive range. This is based on abnormal EKG advanced age, history of alcohol abuse, uncontrolled diabetes and smoking. Recommend pulmonary toilet, but adequate pain control, observation for alcohol withdrawal etc. Diabetes: Currently uncontrolled. Recommend better control of diabetes. This is being instituted by hospitalist. Fracture left hip: Currently is stable. Patient to go for surgery tomorrow. COPD: Continue bronchodilator and steroid therapy as needed for good control of COPD. Currently seems to be satisfactorily controlled. Hypertension: Blood pressure goal should be 135/85 or less. Currently reasonably well controlled. Dyslipidemia: Patient has history of dyslipidemia. Statins has been shown to reduce perioperative risk. Continue with statin therapy. Tobacco abuse: Patient advised to quit smoking. - Time Time Spent: 30 to 50 Minutes - CODE STATUS was discussed, patient remains full code. Surrogate decision-maker unchanged. Multiple medical problems were addressed. More than 50% of the time spent coordinating care, discussing management plans with involved caregivers. Management plans discussed with involved personnels. Medical decision making was of moderate to high complexity , patient's has multiple comorbidities. Medications reviewed and adjusted accordingly: Yes
[2017-02-08] MEDS ORDERED: PRAMIPEXOLE DI HCL 3 MG PO SCH (22:00)
[2017-02-08] MEDS: FAMOTIDINE 20 MG TABLET PO SCH (22:24)
[2017-02-08] MEDS: AMITRIPTYLINE HCL 25 MG TABLET PO SCH (22:24)
[2017-02-09] MEDS: MORPHINE SULFATE 10 MG/ML INJ IV PRN ×3 (00:51→20:04)
[2017-02-09 05:30] LABS: ANION GAP 6 (5-19); BLOOD UREA NITROGEN 14 mg/dL (7-20); CALCIUM 8.4 mg/dL (8.4-10.2); CARBON DIOXIDE 29 mmol/L (22-30); CHLORIDE 101 mmol/L (98-107); CREATININE RESULT 0.79 mg/dL (0.52-1.25); GLUCOSE 243 mg/dL (75-110); MAGNESIUM 1.8 mg/dL (1.6-2.3); SODIUM 135.6 mmol/L (137-145)
[2017-02-09] MEDS: AMITRIPTYLINE HCL 25 MG TABLET PO SCH ×3 (05:43→21:10)
[2017-02-09] MEDS: DIAZEPAM 5 MG TABLET PO SCH ×4 (05:43→23:14)
[2017-02-09 05:52] LABS: POTASSIUM 4.1 mmol/L (3.6-5.0)
[2017-02-09 06:01] LABS: ABSOLUTE BASOPHILS # (AUTO) 0.1 10^3/uL (0.0-0.2); ABSOLUTE EOSINOPHILS # (AUTO) 0.3 10^3/uL (0.0-0.6); ABSOLUTE LYMPHOCYTES (AUTO) 2.2 10^3/uL (0.5-4.7); ABSOLUTE MONOCYTES (AUTO) 0.7 10^3/uL (0.1-1.4); ABSOLUTE NEUT (AUTO) 6.3 10^3/uL (1.7-8.2); BASOPHILS % (AUTO) 0.8 % (0-2); EOSINOPHILS % (AUTO) 3.4 % (0-6); HEMATOCRIT 36.6 % (36.0-47.0); HEMOGLOBIN 12.1 g/dL (12.0-15.5); HGB HCT DIFFERENCE -0.3; MEAN CORPUSCULAR HEMOGLOBIN 30.1 pg (27.0-33.4); MEAN CORPUSCULAR HGB CONC 32.9 g/dL (32.0-36.0); MEAN CORPUSCULAR VOLUME 91 fl (80-97); MONOCYTES % (AUTO) 7.4 % (3-13); RED BLOOD COUNT 4.01 10^6/uL (3.72-5.28); SEGMENTED NEUTROPHILS % (AUTO) 65.4 % (42-78); WHITE BLOOD COUNT 9.7 10^3/uL (4.0-10.5)
--- NOTE | 2017-02-09 09:49 | PDOC PROGRESS REPORT ---
Subjective Progress Note for:: 02/09/17 Subjective:: Patient seems to be doing somewhat better however she is noted to be lethargic today and very sleepy. Patient is not noted to have any chest arm or neck discomfort. Patient not noted to have or describing any PND, orthopnea.. Patient not noted to have fever chills. Patient does not seem to be in any other significant discomfort. Patient is maintaining sinus rhythm without any sustained tachycardia or bradycardia arrhythmias. System review: No significant changes Medications reviewed. Physical Exam Vital Signs: Temp Pulse Resp BP Pulse Ox 98.0 F 82 16 119/59 L 94 02/09/17 03:48 02/09/17 07:00 02/09/17 03:48 02/09/17 03:48 02/09/17 03:48 Intake & Output 02/08/17 02/09/17 02/10/17 06:59 06:59 06:59 Intake Total 633 Output Total 750 Balance -117 Weight 68.3 kg Exam: GENERAL: well-nourished and in no acute distress. Patient is alert ,oriented to place and person. Not oriented to time. Patient however noted to be very sleepy. HEAD: Atraumatic, normocephalic. EYES: Pupils equal round and reactive to light, extraocular movements intact, sclera anicteric, conjunctiva are normal. ENT: TMs normal, nares patent, oropharynx clear without exudates. Moist mucous membranes. No oral ulcerations or bleeding gums noted NECK: supple without lymphadenopathy or JVD. Trachea is central. No cervical or axillary lymphadenopathy noted. Carotids are 2+ LUNGS: Breath sounds bibasilar fine crackles at bases. No significant dullness noted. CHEST: Palpation of chest wall shows no significant chest wall tenderness. 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 ABDOMEN: Soft, no significant tenderness appreciated, normoactive bowel sounds. No guarding, no rebound. No rigidity noted . No masses appreciated. EXTREMITIES: Pedal pulses are 1-2+, no calf tenderness noted, Trace + pedal edema noted. No clubbing or cyanosis. Patient noted to have loss of great toe on the left side and multiple superficial excoriation and ulcerations on multiple toes on both legs. NEUROLOGICAL: Patient is alert but is not able to participate in neurological exam because of patient's current mental status PSYCH: Patient cannot participate in a neurologic and psych exam because of the patient's current mental status. SKIN: No significant ecchymosis, rash, ulcerations or signs of pruritus noted. MUSCULOSKELETAL EXAM: No significant joint swelling noted. Findings indicative of left hip fracture noted. Results Laboratory Results: 02/09/17 04:56 02/09/17 04:56 02/08/17 02/09/17 02/09/17 13:15 04:56 04:56 WBC 9.7 RBC 4.01 Hgb 12.1 D Hct 36.6 MCV 91 MCH 30.1 MCHC 32.9 RDW 16.0 H Plt Count 218 Seg Neutrophils % 65.4 Lymphocytes % 23.0 Monocytes % 7.4 Eosinophils % 3.4 Basophils % 0.8 Absolute Neutrophils 6.3 Absolute Lymphocytes 2.2 Absolute Monocytes 0.7 Absolute Eosinophils 0.3 Absolute Basophils 0.1 Sodium 135.6 L Potassium 4.1 D Chloride 101 Carbon Dioxide 29 Anion Gap 6 BUN 14 Creatinine 0.79 Est GFR ( Amer) > 60 Est GFR (Non-Af Amer) > 60 Glucose 243 H Calcium 8.4 Magnesium 1.8 Blood Type A POSITIVE Antibody Screen NEGATIVE 02/08/17 02/08/17 02/08/17 13:15 13:15 18:20 Creatine Kinase 287 H 220 H Troponin I < 0.012 02/08/17 02/09/17 02/09/17 18:20 00:15 00:15 Creatine Kinase 179 H Troponin I < 0.012 < 0.012 EKG Comments: Telemetry strips shows sinus rhythm without any sustained tachycardia or bradycardia arrhythmias. Impressions: Femur X-Ray 02/08/17 08:20 IMPRESSION: Nondisplaced left intratrochanteric hip fracture. Chest X-Ray 02/08/17 08:21 IMPRESSION: NO ACUTE RADIOGRAPHIC FINDING IN THE CHEST. Assessment & Plan - Diagnosis (1) Abnormal electrocardiogram Is this a current diagnosis for this admission?: Yes (2) Preoperative cardiovascular examination Is this a current diagnosis for this admission?: Yes (3) Diabetes type 2, uncontrolled Qualifiers: Diabetes mellitus complication status: with unspecified complications Diabetes mellitus fci insulin use: unspecified terminal makeup operator insulin use status Qualified Code(s): E11.8 - Type 2 diabetes mellitus with unspecified complications; E11.65 - Type 2 diabetes mellitus with hyperglycemia Is this a current diagnosis for this admission?: Yes (4) Fracture of left hip Qualifiers: Encounter type: initial encounter Fracture type: closed Qualified Code(s) : S72.002A - Fracture of unspecified part of neck of left femur, initial encounter for closed fracture Is this a current diagnosis for this admission?: Yes (5) COPD (chronic obstructive pulmonary disease) Qualifiers: COPD type: unspecified COPD Qualified Code(s): J44.9 - Chronic obstructive pulmonary disease, unspecified Is this a current diagnosis for this admission?: Yes (6) Hypertension Qualifiers: Hypertension type: essential hypertension Qualified Code(s): I10 - Essential (primary) hypertension Is this a current diagnosis for this admission?: Yes (7) Tobacco abuse Is this a current diagnosis for this admission?: Yes (8) Hyperlipidemia Qualifiers: Hyperlipidemia type: unspecified Qualified Code(s): E78.5 - Hyperlipidemia , unspecified Is this a current diagnosis for this admission?: Yes - Notes Notes: Abnormal electrocardiogram: Patient has nonprogression of R-wave but no acute ST -T wave changes. 2D echo preliminary report shows normal LVEF. No significant stenotic or valvular regurgitations noted. Patient does not seem to be in clinical CHF not having angina at this point therefore cleared for surgery. Preop cardiovascular examination: Patient would be considered higher than average risk but not in the prohibitive range. This is based on abnormal EKG advanced age, history of alcohol abuse, uncontrolled diabetes and smoking. Recommend pulmonary toilet, but adequate pain control, observation for alcohol withdrawal etc. Diabetes: Currently uncontrolled. Recommend better control of diabetes. This is being instituted by hospitalist. Fracture left hip: Currently is stable. Patient to go for surgery tomorrow. COPD: Continue bronchodilator and steroid therapy as needed for good control of COPD. Currently seems to be satisfactorily controlled. Hypertension: Blood pressure goal should be 135/85 or less. Currently reasonably well controlled. Dyslipidemia: Patient has history of dyslipidemia. Statins has been shown to reduce perioperative risk. Continue with statin therapy. Tobacco abuse: Patient advised to quit smoking. - Time Time with patient: 15-25 minutes - CODE STATUS was discussed, patient remains full code. Surrogate decision-maker unchanged. Multiple medical problems were addressed. More than 50% of the time spent coordinating care, discussing management plans with involved caregivers. Management plans discussed with involved personnels. Medical decision making was of moderate to high complexity , patient's has multiple comorbidities. Medications reviewed and adjusted accordingly: Yes
[2017-02-09] MEDS: FAMOTIDINE 20 MG TABLET PO SCH ×2 (09:55→21:10)
[2017-02-09] MEDS: DOCUSATE SODIUM 100 MG CAPSULE PO SCH ×2 (09:55→19:23)
[2017-02-09] MEDS ORDERED: (PENDING PHARMACY ID) (Pyridoxine Hcl [Vitamin B-6] 100 MG) PO SCH (10:00)
[2017-02-09] MEDS: CEFTRIAXONE 1 GM/D5W RTU 1 GM/50 ML RTUPB IV SCH (10:01)
[2017-02-09] MEDS ORDERED: DEXTROSE 50%-WATER 25 GM/50 ML DISP.SYRIN IV PRN ×2 (11:34)
[2017-02-09] MEDS ORDERED: GLUCAGON,HUMAN RECOMB 1 MG INJ SUBCUT PRN (11:34)
[2017-02-09] MEDS ORDERED: DEXTROSE 40% GEL 15 GM TUBE PO PRN ×2 (11:34)
--- NOTE | 2017-02-09 11:40 | PDOC CONSULTATION ---
History of Present Illness Admission Date/PCP: 02/08/17 12:10 BARBARA FRANZ MD Patient complains of: Left Hip Pain History of Present Illness: VIVEK MAGUIRE is a 71 year old female who sustained a fall on Wednesday at about 1330. And was on the ground for approximately 12 hours before being able to crawl to the phone and activated EMS. Patient reports she fell approximately 3 times in the past several days before this. She has no history of alcohol abuse and previously sustained a right hip fracture. Patient states currently she has significant pain in her left hip worse with movement. Denies numbness or tingling. Does complain of some rib discomfort on the right after one any more recent falls as well. Pain 8/10. Past Medical History Cardiac Medical History: Reports: Hypertension Pulmonary Medical History: Reports: Asthma, Chronic Obstructive Pulmonary Disease (COPD) Endocrine Medical History: Reports: Diabetes Mellitus Type 1, Diabetes Mellitus Type 2 Psychiatric Medical History: Reports: Depression Past Surgical History Past Surgical History: Reports: Adenoidectomy, Orthopedic Surgery, Tonsillectomy , Other - Cataract Social History Smoking Status: Current Every Day Smoker Cigarettes Packs Per Day: 1 Number of Years Smokin Last Time Smoked: 02/06/2018 Frequency of Alcohol Use: Heavy Hx Recreational Drug Use: No Drugs: None Hx Prescription Drug Abuse: No - Advance Directive Resuscitation Status: Full Code Family History Family History: CAD, Malignancy - Throat cancer, Other - Alzheimer's Parental Family History Reviewed: No Children Family History Reviewed: No Sibling(s) Family History Reviewed.: No Medication/Allergy Home Medications: Amitriptyline HCl [Elavil 25 mg Tablet] 25 mg PO Q8 02/08/17 Atorvastatin Calcium [Lipitor 10 mg Tablet] 10 mg PO DAILY 02/08/17 Cholecalciferol (Vitamin D3) [Vitamin D3] 5,000 unit PO DAILY 02/08/17 Cyanocobalamin (Vitamin B-12) [Vitamin B-12 1000 mcg Tablet] 1,000 mcg PO DAILY 02/08/17 Diazepam [Valium 5 mg Tablet] 5 mg PO QHS 02/08/17 Duloxetine HCl [Cymbalta] 60 mg PO DAILY 02/08/17 Ferrous Sulfate [Feosol 325 mg Tablet] 325 mg PO DAILY 02/08/17 Hydroxyzine HCl [Atarax 25 mg Tablet] 25 mg PO HSP PRN 02/08/17 Metformin HCl [Glucophage] 1,000 mg PO BIDBS 02/08/17 Pramipexole Di-HCl [Mirapex ER] 3 mg PO QHS 02/08/17 Pyridoxine HCl [Vitamin B-6] 100 mg PO DAILY 02/08/17 Ramipril [Altace 10 mg Capsule] 10 mg PO DAILY 02/08/17 Thiamine HCl [Thiamine 100 mg Tablet] 100 mg PO DAILY 02/08/17 Allergies/Adverse Reactions: valsartan [From Diovan] Allergy (Unknown, Verified 02/08/17 08:51) Penicillins Allergy (Verified 02/08/17 08:51) exenatide [From Byetta] Adverse Reaction (Severe, Verified 02/08/17 14:52) Migraine Review of Systems All systems: as per PMH Constitutional: ABSENT: chills, fever(s), headache(s), weight gain, weight loss Eyes: ABSENT: visual disturbances Ears: ABSENT: hearing changes Cardiovascular: PRESENT: chest pain. ABSENT: dyspnea on exertion, edema, orthropnea, palpitations Respiratory: ABSENT: cough, hemoptysis Gastrointestinal: ABSENT: abdominal pain, constipation, diarrhea, hematemesis, hematochezia, nausea, vomiting Genitourinary: ABSENT: dysuria, hematuria Musculoskeletal: PRESENT: as per HPI Integumentary: ABSENT: rash, wounds Neurological: PRESENT: frequent falls. ABSENT: abnormal gait, abnormal speech, confusion, dizziness, focal weakness, syncope Psychiatric: ABSENT: anxiety, depression, homidical ideation, suicidal ideation Endocrine: ABSENT: cold intolerance, heat intolerance, menstrual abnormalities, polydipsia, polyuria Hematologic/Lymphatic: ABSENT: easy bleeding, easy bruising, lymphadenopathy Physical Exam Vital Signs: Temp Pulse Resp BP Pulse Ox 98.0 F 82 16 119/59 L 94 02/09/17 03:48 02/09/17 07:00 02/09/17 03:48 02/09/17 03:48 02/09/17 03:48 Intake & Output 02/08/17 02/09/17 02/10/17 06:59 06:59 06:59 Intake Total 633 Output Total 750 Balance -117 Weight 68.3 kg General appearance: PRESENT: no acute distress, disheveled, well-developed, well -nourished Head exam: PRESENT: atraumatic, normocephalic Eye exam: PRESENT: conjunctiva pink, EOMI, PERRLA. ABSENT: scleral icterus Ear exam: PRESENT: normal external ear exam Mouth exam: PRESENT: moist, tongue midline Neck exam: PRESENT: full ROM. ABSENT: carotid bruit, JVD, lymphadenopathy, thyromegaly Respiratory exam: PRESENT: unlabored Cardiovascular exam: PRESENT: RRR. ABSENT: diastolic murmur, rubs, systolic murmur Pulses: PRESENT: normal dorsalis pedis pul, +2 pedal pulses bilateral Vascular exam: PRESENT: normal capillary refill GI/Abdominal exam: PRESENT: normal bowel sounds, soft. ABSENT: distended, guarding, mass, organolmegaly, rebound, tenderness Rectal exam: PRESENT: deferred Gentrourinary exam: PRESENT: other - Abrasions on the left lower leg. Musculoskeletal exam: PRESENT: other - Left lower extremity: Shortened externally rotated, positive logroll. No calf tenderness. Intact plantar flexion/dorsiflexion. No sensory deficits. No tenderness in the bilateral upper extremities or right lower extremity. Neurological exam: PRESENT: alert, awake, oriented to person, oriented to place , oriented to time, oriented to situation, CN II-XII grossly intact. ABSENT: motor sensory deficit Psychiatric exam: PRESENT: appropriate affect, normal mood. ABSENT: homicidal ideation, suicidal ideation Skin exam: PRESENT: dry, intact, warm. ABSENT: cyanosis, rash Results Laboratory Results: 02/09/17 04:56 02/09/17 04:56 02/08/17 02/09/17 02/09/17 13:15 04:56 04:56 WBC 9.7 RBC 4.01 Hgb 12.1 D Hct 36.6 MCV 91 MCH 30.1 MCHC 32.9 RDW 16.0 H Plt Count 218 Seg Neutrophils % 65.4 Lymphocytes % 23.0 Monocytes % 7.4 Eosinophils % 3.4 Basophils % 0.8 Absolute Neutrophils 6.3 Absolute Lymphocytes 2.2 Absolute Monocytes 0.7 Absolute Eosinophils 0.3 Absolute Basophils 0.1 Sodium 135.6 L Potassium 4.1 D Chloride 101 Carbon Dioxide 29 Anion Gap 6 BUN 14 Creatinine 0.79 Est GFR ( Amer) > 60 Est GFR (Non-Af Amer) > 60 Glucose 243 H Calcium 8.4 Magnesium 1.8 Blood Type A POSITIVE Antibody Screen NEGATIVE 02/08/17 02/08/17 02/08/17 13:15 13:15 18:20 Creatine Kinase 287 H 220 H Troponin I < 0.012 02/08/17 02/09/17 02/09/17 18:20 00:15 00:15 Creatine Kinase 179 H Troponin I < 0.012 < 0.012 Impressions: Femur X-Ray 02/08/17 08:20 IMPRESSION: Nondisplaced left intratrochanteric hip fracture. Chest X-Ray 02/08/17 08:21 IMPRESSION: NO ACUTE RADIOGRAPHIC FINDING IN THE CHEST. Status: Image reviewed by me - I have reviewed patient's radiographs demonstrating minimally displaced left intratrochanteric fracture. Assessment & Plan - Diagnosis (1) Intertrochanteric fracture of left femur Qualifiers: Encounter type: initial encounter Fracture type: closed Is this a current diagnosis for this admission?: Yes Plan: Patient sustained an intertrochanteric fracture of her left hip. This is the second fracture of the hip in approximately 2 years ago patient sustained a similar fracture and underwent intramedullary nailing which she did well. Today we discussed treatment options including operative versus nonoperative intervention I have recommended operative treatment risks and benefits were explained patient verbalized understanding. Risks include anesthetic complications, excessive bleeding, infection, injury to surrounding nerves, vessels and tendons, bruising, healing difficulties, scar formation, posttraumatic arthritis and any unforseen complication. Patient understands she is at high risk given her brittle diabetes and multiple comorbidities. Plan will be to proceed with operative intervention when medically optimized.
--- NOTE | 2017-02-09 12:04 | XCELERA REPORT ---
[address] [address] Transthoracic Echocardiogram Report Name: VIVEK MAGUIRE Age: 71 yrs Gender: Female : 1945 Patient Status: Inpatient Patient Location: [address] [place] [address] Study Date: 02/09/2017 08:55 AM Height: 65 in Weight: 154 lb BSA: 1.8 m2 Procedure: A complete two-dimensional transthoracic echocardiogram was performed (2D, M-mode, spectral and color flow Doppler). The study was technically difficult with many images being suboptimal in quality. Reason For Study: +murmur, probable old [place] Ordering Physician: ALEXIS DISLA Performed By: Linnette Matias Interpretation Summary The left ventricular ejection fraction is normal. There is mild concentric left ventricular hypertrophy. Doppler measurements suggest pseudonormalized left ventricular relaxation, which is associated with grade II/IV or mild to moderate diastolic dysfunction The left ventricle is grossly normal size. The right ventricular systolic function is normal. The left atrium is mildly dilated. There is a trace amount of mitral regurgitation There is a trace or physiologic amount of tricuspid regurgitation Tricuspid regurgitation jet envelope not well defined to measure RV systolic pressure accurately. There is no pericardial effusion. MMode/2D Measurements & Calculations RVDd: 2.9 cm LVIDd: 4.4 cm FS: 32.8 % Ao root diam: 2.9 cm IVSd: 0.87 cm LVIDs: 2.9 cm EDV(Teich): 85.8 ml LVPWd: 0.86 cm ESV(Teich): 33.1 ml Ao root area: 6.4 cm2 EF(Teich): 61.5 % LA dimension: 3.2 cm Doppler Measurements & Calculations MV E max howard: MV P1/2t max howard: Ao V2 max: LV V1 max P.1 cm/sec 71.6 cm/sec 184.2 cm/sec 6.7 mmHg MV A max howard: MV P1/2t: 70.1 msec Ao max PG: LV V1 max: 88.8 cm/sec 13.6 mmHg 129.8 cm/sec MV E/A: 0.80 MVA(P1/2t): 3.1 cm2 MV dec slope: 299.2 cm/sec2 MV dec time: 0.24 sec PA V2 max: TR max howard: 85.4 cm/sec 256.3 cm/sec PA max PG: TR max P.3 mmHg 2.9 mmHg Left Ventricle The left ventricle is grossly normal size. There is mild concentric left ventricular hypertrophy. The left ventricular ejection fraction is normal. Doppler measurements suggest pseudonormalized left ventricular relaxation, which is associated with grade II/IV or mild to moderate diastolic dysfunction. Wall motion cannot be accurately commented on, but no definite regional wall motion abnormalities noted. Right Ventricle The right ventricle is grossly normal size. There is normal right ventricular wall thickness. The right ventricular systolic function is normal. Atria The right atrium is normal in size. The left atrium is mildly dilated. Interarterial septum not well visualized and not well dopplered. Cannot comment on ASD/PFO presence. Mitral Valve The mitral valve leaflets are sclerotic, but show no functional abnormalities. There is no mitral valve stenosis. There is a trace amount of mitral regurgitation. Aortic Valve The aortic valve is not well visualized secondary to technical limitations. There is no aortic valve stenosis. No aortic regurgitation is present. Tricuspid Valve The tricuspid valve is not well visualized, but is grossly normal. There is no tricuspid stenosis. There is a trace or physiologic amount of tricuspid regurgitation. Tricuspid regurgitation jet envelope not well defined to measure RV systolic pressure accurately. Pulmonic Valve The pulmonic valve is not well visualized. Great Vessels The aortic root is not well visualized but is probably normal size. The inferior vena cava appeared normal and decreased > 50% with respiration (RAP 5-10 mmHg). Effusions There is no pericardial effusion. : ALEXIS DISLA > Heron Jha
[2017-02-09] MEDS: FOLIC ACID 1 MG TABLET PO SCH (12:14)
[2017-02-09] MEDS: THIAMINE HCL 100 MG TABLET PO SCH (12:14)
[2017-02-09] MEDS: DULOXETINE HCL 30 MG CAPSULE.DR PO SCH (12:14)
[2017-02-09] MEDS: CYANOCOBALAMIN (VITAMIN B-12) 1,000 MCG TABLET PO SCH (12:14)
[2017-02-09] MEDS: ATORVASTATIN CALCIUM 10 MG TABLET PO SCH (12:14)
[2017-02-09] MEDS: MULTIVITAMIN TABLET PO SCH (12:14)
[2017-02-09] MEDS: PYRIDOXINE HCL 50 MG TABLET PO SCH (12:14)
[2017-02-09] MEDS: RAMIPRIL 10 MG CAPSULE PO SCH (12:14)
[2017-02-09] MEDS: FERROUS SULFATE 325 MG TABLET PO SCH (12:14)
[2017-02-09] MEDS ORDERED: MIDAZOLAM 2 MG/2 ML INJ ONE (14:42)
[2017-02-09] MEDS ORDERED: FENTANYL CITRATE INJ/PF 100 MCG/2 ML AMPUL ONE (14:42)
[2017-02-09] MEDS ORDERED: PROPOFOL INJ 200 MG/20 ML VIAL IV ONE (14:42)
[2017-02-09] MEDS ORDERED: DIPHENHYDRAMINE HCL 50 MG/ML VIAL IV PRN (15:34)
[2017-02-09] MEDS ORDERED: FENTANYL CITRATE INJ/PF 100 MCG/2 ML AMPUL IV PRN ×3 (15:34)
[2017-02-09] MEDS ORDERED: ONDANSETRON HCL INJ/PF 4 MG/2 ML SDV IV PRN (15:34)
[2017-02-09] MEDS ORDERED: PROMETHAZINE HCL INJ 25 MG/1 ML VIAL IV PRN (15:34)
[2017-02-09] MEDS ORDERED: RINGERS SOLUTION,LACTATED 1,000 ML IV PRN (16:36)
--- NOTE | 2017-02-09 16:36 | Operative Report ---
Operative Report DATE OF SURGERY: 02/09/17 PREOPERATIVE DIAGNOSIS: Left intertrochanteric hip fracture POSTOPERATIVE DIAGNOSIS: Same OPERATION: Short gamma nail left intertrochanteric hip fracture SURGEON: SUN RAMSAY ANESTHESIA: Spinal COMPLICATIONS: None ESTIMATED BLOOD LOSS: 75 cc PROCEDURE: Indication for above procedure: 71-year-old female who is a community ambulator and lives at home alone. Patient sustained a fall Wednesday afternoon and was found by EMS 12 hours later. She was brought to the emergency room where x-rays demonstrated intertrochanteric fracture. Patient was seen and evaluated by cardiology and the hospitalist and did medically optimized for operative intervention. Risks and benefits were explained to the patient she verbalized understanding and consented for the procedure. Procedure detail: Patient was seen and evaluated in the preoperative holding area. The right lower extremity was initialized and marked. Patient received 2 g Ancef IV for bacterial prophylaxis. Patient was taken back to the operative room where transferred operative table. Patient was placed under spinal anesthesia. Once adequate anesthetized he was carefully placed onto the hip positioner the nonoperative lower extremity and bilateral upper extremities were carefully padded and the peroneal nerve was padded and on the nonoperative extremity. The operative extremity was placed in a traction along with adduction and internal rotation. A surgical team debriefing was performed ensuring all instrumentation was available, the surgical procedure was discussed with possible concerns reviewed. A timeout was done identifying correct patient, procedure and extremity everyone in attendance agree with this and verbalized no concerns. Reduction maneuver with the use of the hip traction table were done and C-arm fluoroscopy was used to confirm optimal reduction of the intertrochanteric fracture. Once this was confirmed the lower extremity was prepped with chlor prep and draped in a sterile fashion. At this point a small skin incision was made proximal to the greater trochanter. The guidewire was placed onto the tip of the trochanter advanced down to the level of the lesser trochanter. AP and lateral fluoroscopy was used to confirm appropriate placement of the guidewire. The skin incision was then extended and the underlying fascia opened up carefully to the tip of the greater trochanter. The entry reamer was then used and advanced to the level of the lesser trochanter. At this point [place] short gamma nail was opened up and placed onto the aiming arm and advanced down the shaft of the femur. AP and lateral fluoroscopy was then used to confirm appropriate placement of the nail. Then turned my attention to the compression screw fixation in the femoral head. The trochars were advanced to the skin, a skin incision was made, careful dissection down to the fascia to the lateral femoral cortex was then partaken. The guidewire was then used and placed in the center center position with the tip apex distance less than 25 mm. Once this position was obtained the size of the compression screw was measured. AP and lateral fluoroscopy used to confirm appropriate placement of our guide wire. The step reamer was used to drill up through the femoral neck and head. I then carefully advanced the compression screw into position. AP and lateral fluoroscopy was done to confirm appropriate placement of the compression screw this was then locked into position proximally. The compression screw was then disengaged from its mounting device and the guidewire was removed. Lastly proceeded with locking of the nail distally. Using the aiming arm the trochars were advanced to the skin, a skin incision was made. Careful dissection done with a hemostat to the lateral cortex of the femur. I then drilled the near and far cortices. Measured the appropriate sized distal locking screw and secured it into position. At this point AP/lateral and oblique views of the proximal and distal aspect of the nail were taken confirming appropriate placement of the compression screw, distal locking screw and intramedullary nail. Once this was confirmed I proceeded with copious irrigation of the proximal and distal wounds. The deep tissues were closed with 0 Vicryl suture, subcutaneous tissues were closed with 3-0 Monocryl suture. The skin was closed a running 3-0 subcuticular Monocryl suture and reinforced with Dermabond & Steri-Strips. A dressing was placed. Sponge counts, instrument counts and needle counts were correct. Patient was then transferred from the operating room table to the operating room stretcher. The was no intraoperative complications patient tolerated procedure well was stable to PACU. Implants used: James 11 x 180 mm 12 Short Gamma Nail with a 85 mm compression screw Postoperative plan: Patient will begin physical therapy on postop day #1 with Xarelto daily.
--- NOTE | 2017-02-09 17:51 | RADIOLOGY REPORT (SQ) ---
EXAM DESCRIPTION: HIP LEFT AP/LATERAL COMPLETED DATE/TIME: 02/09/2017 5:12 pm REASON FOR STUDY: ORIF L HIP NAILING COMPARISON: None. FLUOROSCOPY TIME: 0.6 minute 4 images saved to PACS. TECHNIQUE: Intra-operative images acquired during surgical procedure to evaluate progress. NUMBER OF IMAGES: 4 images LIMITATIONS: None. FINDINGS: Fluoroscopic images were obtained during internal fixation of the left hip. Orthopedic woods rdware is identified. Please refer the surgeon's operative report for additional information. IMPRESSION: IMAGE(S) OBTAINED DURING PROCEDURE. COMMENT: Quality ID [id number]: Final reports for procedures using fluoroscopy that document radiation exp osure indices, or exposure time and number of fluorographic images (if radiation exposure indices are not available) Please consult full operative report of the attending physician for description of the procedure. TECHNICAL DOCUMENTATION: JOB ID: [id number] [employer]- All Rights Reserved
--- NOTE | 2017-02-09 17:51 | RADIOLOGY REPORT (SQ) ---
EXAM DESCRIPTION: NO CHG FLUORO COMPLETE DATE/TIME: 02/09/2017 5:12 pm REASON FOR STUDY: ORIF L HIP NAILING FINDINGS: Please see combined report for performance of procedure and radiologic supervision and int erpretation. IMPRESSION: Please see combined report for performance of procedure and radiologic supervision and i nterpretation.
--- NOTE | 2017-02-09 17:58 | PDOC PROGRESS REPORT ---
Subjective Progress Note for:: 02/09/17 Subjective:: There is a follow-up visit for left hip fracture. The patient states that she is due to go to the OR at 230. I have noted for her that she does have urinary tract infection. She has been cleared from a cardiovascular perspective. Physical Exam Vital Signs: Temp Pulse Resp BP Pulse Ox 97.6 F 91 16 104/82 99 02/09/17 16:35 02/09/17 17:20 02/09/17 17:20 02/09/17 17:20 02/09/17 17:20 Intake & Output 02/08/17 02/09/17 02/10/17 06:59 06:59 06:59 Intake Total 633 Output Total 750 Balance -117 Weight 68.3 kg GENERAL: This is a well-developed and nourished appearing white female resting in bed currently in no acute distress. HEART: Regular rate and rhythm. No murmurs, rubs or gallops. LUNGS: Clear to auscultation bilaterally with equal rise and fall of the chest. ABDOMEN: Soft, nontender, nondistended with normoactive bowel sounds EXTREMETIES: No clubbing, cyanosis or edema. The patient has a left great toe amputation. She has dry blood on every solitary toe that is left remaining. 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 Her left leg is shorter than the right and externally rotated. 2+ peripheral pulses bilaterally. NEURO: Awake, alert and oriented 3. The patient is slurring her words. I believe she is received some morphine. Cranial nerves II through XII are grossly intact. Results Laboratory Results: 02/09/17 04:56 02/09/17 04:56 02/09/17 02/09/17 04:56 04:56 WBC 9.7 RBC 4.01 Hgb 12.1 D Hct 36.6 MCV 91 MCH 30.1 MCHC 32.9 RDW 16.0 H Plt Count 218 Seg Neutrophils % 65.4 Lymphocytes % 23.0 Monocytes % 7.4 Eosinophils % 3.4 Basophils % 0.8 Absolute Neutrophils 6.3 Absolute Lymphocytes 2.2 Absolute Monocytes 0.7 Absolute Eosinophils 0.3 Absolute Basophils 0.1 Sodium 135.6 L Potassium 4.1 D Chloride 101 Carbon Dioxide 29 Anion Gap 6 BUN 14 Creatinine 0.79 Est GFR ( Amer) > 60 Est GFR (Non-Af Amer) > 60 Glucose 243 H Calcium 8.4 Magnesium 1.8 02/08/17 02/08/17 02/08/17 13:15 13:15 18:20 Creatine Kinase 287 H 220 H Troponin I < 0.012 02/08/17 02/09/17 02/09/17 18:20 00:15 00:15 Creatine Kinase 179 H Troponin I < 0.012 < 0.012 Impressions: Femur X-Ray 02/08/17 08:20 IMPRESSION: Nondisplaced left intratrochanteric hip fracture. Chest X-Ray 02/08/17 08:21 IMPRESSION: NO ACUTE RADIOGRAPHIC FINDING IN THE CHEST. Fluoroscopy 02/09/17 00:00 IMPRESSION: Please see combined report for performance of procedure and radiologic supervision and interpretation. Hip X-Ray 02/09/17 00:00 IMPRESSION: IMAGE(S) OBTAINED DURING PROCEDURE. Assessment & Plan - Diagnosis (1) Intertrochanteric fracture of left femur Qualifiers: Encounter type: initial encounter Fracture type: closed Is this a current diagnosis for this admission?: Yes Plan: Management as per orthopedic surgery. (2) UTI (urinary tract infection) Qualifiers: Urinary tract infection type: acute cystitis Hematuria presence: with hematuria Qualified Code(s): N30.01 - Acute cystitis with hematuria Is this a current diagnosis for this admission?: Yes Plan: Gram-negative rods found in the urine. Identification and susceptibilities are pending. Continue Rocephin for now. (3) Diabetes type 2, uncontrolled Qualifiers: Diabetes mellitus complication status: with unspecified complications Diabetes mellitus intermediate designer insulin use: unspecified intermediate designer insulin use status Qualified Code(s): E11.8 - Type 2 diabetes mellitus with unspecified complications; E11.65 - Type 2 diabetes mellitus with hyperglycemia Is this a current diagnosis for this admission?: Yes Plan: Continue sliding scale insulin. (4) Alcohol abuse Is this a current diagnosis for this admission?: Yes Plan: Cessation is recommended. (5) Anemia Qualifiers: Anemia type: unspecified type Qualified Code(s): D64.9 - Anemia, unspecified Is this a current diagnosis for this admission?: Yes Plan: Stable (6) Anxiety Is this a current diagnosis for this admission?: Yes Plan: Continue scheduled Valium. (7) COPD (chronic obstructive pulmonary disease) Qualifiers: COPD type: unspecified COPD Qualified Code(s): J44.9 - Chronic obstructive pulmonary disease, unspecified Is this a current diagnosis for this admission?: Yes Plan: Without acute exacerbation. Continue various inhalers and nebulizers. - Time Time Spent with patient: 15-24 minutes Anticipated discharge: Acute Rehab - Inpatient Certification Medical Necessity: Need Close Monitoring Due to Risk of Patient Decompensation
[2017-02-09] MEDS: NICOTINE 21 MG/24 HR PATCH.TD24 TD SCH (19:22)
[2017-02-09] MEDS: RIVAROXABAN 10 MG TABLET PO SCH (21:11)
[2017-02-09] MEDS: INSULIN LISPRO 100 UNIT/ML 3 ML VIAL SUBCUT PRN (21:27)
[2017-02-10] MEDS: MORPHINE SULFATE 10 MG/ML INJ IV PRN ×3 (00:22→17:53)
[2017-02-10 05:14] LABS: HEMOGLOBIN 11.8 g/dL (12.0-15.5); HGB HCT DIFFERENCE -0.6; MEAN CORPUSCULAR HEMOGLOBIN 30.3 pg (27.0-33.4); MEAN CORPUSCULAR HGB CONC 32.7 g/dL (32.0-36.0); MEAN CORPUSCULAR VOLUME 93 fl (80-97); RED BLOOD COUNT 3.88 10^6/uL (3.72-5.28); WHITE BLOOD COUNT 10.1 10^3/uL (4.0-10.5)
[2017-02-10 05:33] LABS: ANION GAP 7 (5-19); BLOOD UREA NITROGEN 17 mg/dL (7-20); CALCIUM 8.8 mg/dL (8.4-10.2); CARBON DIOXIDE 26 mmol/L (22-30); CHLORIDE 99 mmol/L (98-107); CREATININE RESULT 0.72 mg/dL (0.52-1.25); POTASSIUM 4.5 mmol/L (3.6-5.0); SODIUM 132.3 mmol/L (137-145)
[2017-02-10 05:56] LABS: GLUCOSE 349 mg/dL (75-110)
[2017-02-10] MEDS: DIAZEPAM 5 MG TABLET PO SCH ×5 (06:06→23:53)
[2017-02-10] MEDS: AMITRIPTYLINE HCL 25 MG TABLET PO SCH ×3 (06:06→21:24)
[2017-02-10] MEDS: INSULIN LISPRO 100 UNIT/ML 3 ML VIAL SUBCUT PRN ×4 (08:36→22:30)
[2017-02-10] MEDS: DOCUSATE SODIUM 100 MG CAPSULE PO SCH (10:27)
[2017-02-10] MEDS: MULTIVITAMIN TABLET PO SCH (10:28)
[2017-02-10] MEDS: THIAMINE HCL 100 MG TABLET PO SCH (10:28)
[2017-02-10] MEDS: CYANOCOBALAMIN (VITAMIN B-12) 1,000 MCG TABLET PO SCH (10:28)
[2017-02-10] MEDS: FERROUS SULFATE 325 MG TABLET PO SCH (10:28)
[2017-02-10] MEDS: FOLIC ACID 1 MG TABLET PO SCH (10:28)
[2017-02-10] MEDS: FAMOTIDINE 20 MG TABLET PO SCH ×2 (10:28→21:24)
[2017-02-10] MEDS: DULOXETINE HCL 30 MG CAPSULE.DR PO SCH (10:29)
[2017-02-10] MEDS: ATORVASTATIN CALCIUM 10 MG TABLET PO SCH (10:29)
[2017-02-10] MEDS: NICOTINE 21 MG/24 HR PATCH.TD24 TD SCH (10:30)
[2017-02-10] MEDS: CEFTRIAXONE 1 GM/D5W RTU 1 GM/50 ML RTUPB IV SCH (10:38)
[2017-02-10] MEDS: PYRIDOXINE HCL 50 MG TABLET PO SCH (10:40)
[2017-02-10] MEDS: RAMIPRIL 10 MG CAPSULE PO SCH (10:40)
--- NOTE | 2017-02-10 13:37 | Physician Advisory Note ---
Physician Advisor ProgressNote .: Pursuant to the plan for [facility], I have reviewed the medical record for this patient. Physician Advisor Statement: Please consider documentin. "Acute Hyponatremia, suspect due to " (intravascular volume depletion ? ...) - or do you think it is chronic? - Has had some hyponatremia at times previously, but last 2 adm.s have been for Ac metab encephalopathy, with fall/fx.s & post-op delirium, and sepsis due to UTI, respectively. 2. "Chronic anemia of Fe deficiency, nutritional (vs chronic blood loss from __ _)" Thx CK Coders: I would not ask about AABL in this case unless Hgb drops nearer to 10 or below, since her baseline Hgb appears to be around 12, and she was doubtless volume depleted on arrival after 12 hrs on floor.
--- NOTE | 2017-02-10 15:07 | PDOC PROGRESS REPORT ---
Subjective Progress Note for:: 02/10/17 Subjective:: This is a follow-up visit for hip fracture and urinary tract infection. The patient is status post pinning of her left hip. Currently she does not complain of anything. No acute events overnight. She is just received morphine for pain. Physical Exam Vital Signs: Temp Pulse Resp BP Pulse Ox 97.9 F 93 18 107/61 97 02/10/17 07:52 02/10/17 14:00 02/10/17 09:52 02/10/17 07:52 02/10/17 09:52 Intake & Output 02/09/17 02/10/17 02/11/17 06:59 06:59 06:59 Intake Total 633 1921 Output Total 750 1335 Balance -117 586 Weight 68.3 kg 74.6 kg GENERAL: This is a well-developed and nourished appearing white female resting in bed currently in no acute distress. HEART: Regular rate and rhythm. No murmurs, rubs or gallops. LUNGS: Clear to auscultation bilaterally in the upper limb feels. Left lower lobe crackles are heard on exam with equal rise and fall of the chest. ABDOMEN: Soft, nontender, nondistended with normoactive bowel sounds EXTREMETIES: No clubbing, cyanosis or edema. The patient has a left great toe amputation. 2+ peripheral pulses bilaterally. NEURO: Awake, alert and oriented 3. The patient is slurring her words. She just received morphine again. The nurses at the bedside and states that her speech was not like this prior to the morphine. Cranial nerves II through XII are grossly intact. Results Laboratory Results: 02/10/17 04:48 02/10/17 04:48 02/10/17 02/10/17 04:48 04:48 WBC 10.1 RBC 3.88 Hgb 11.8 L Hct 36.0 MCV 93 MCH 30.3 MCHC 32.7 RDW 16.0 H Plt Count 210 Sodium 132.3 L Potassium 4.5 Chloride 99 Carbon Dioxide 26 Anion Gap 7 BUN 17 Creatinine 0.72 Est GFR ( Amer) > 60 Est GFR (Non-Af Amer) > 60 Glucose 349 H Calcium 8.8 02/08/17 02/08/17 02/08/17 13:15 13:15 18:20 Creatine Kinase 287 H 220 H Troponin I < 0.012 02/08/17 02/09/17 02/09/17 18:20 00:15 00:15 Creatine Kinase 179 H Troponin I < 0.012 < 0.012 Impressions: Femur X-Ray 02/08/17 08:20 IMPRESSION: Nondisplaced left intratrochanteric hip fracture. Chest X-Ray 02/08/17 08:21 IMPRESSION: NO ACUTE RADIOGRAPHIC FINDING IN THE CHEST. Fluoroscopy 02/09/17 00:00 IMPRESSION: Please see combined report for performance of procedure and radiologic supervision and interpretation. Hip X-Ray 02/09/17 00:00 IMPRESSION: IMAGE(S) OBTAINED DURING PROCEDURE. Assessment & Plan - Diagnosis (1) Intertrochanteric fracture of left femur Qualifiers: Encounter type: initial encounter Fracture type: closed Is this a current diagnosis for this admission?: Yes Plan: Management as per orthopedic surgery. Status post pinning. Continue PT and OT. Will need to place and rehab. (2) UTI (urinary tract infection) Qualifiers: Urinary tract infection type: acute cystitis Hematuria presence: with hematuria Qualified Code(s): N30.01 - Acute cystitis with hematuria Is this a current diagnosis for this admission?: Yes Plan: Gram-negative rods consistent with Serratia were found in the urine. This organism is susceptible to Rocephin. Continue current management. (3) Diabetes type 2, uncontrolled Qualifiers: Diabetes mellitus complication status: with unspecified complications Diabetes mellitus residential insulin use: unspecified residential insulin use status Qualified Code(s): E11.8 - Type 2 diabetes mellitus with unspecified complications; E11.65 - Type 2 diabetes mellitus with hyperglycemia Is this a current diagnosis for this admission?: Yes Plan: Continue sliding scale insulin. (4) Alcohol abuse Is this a current diagnosis for this admission?: Yes Plan: Cessation is recommended. (5) Anemia Qualifiers: Anemia type: unspecified type Qualified Code(s): D64.9 - Anemia, unspecified Is this a current diagnosis for this admission?: Yes Plan: Stable. The patient has had a slight postop drop. We will continue to monitor. For now it is not enough to deem this acute blood loss anemia. (6) Anxiety Is this a current diagnosis for this admission?: Yes Plan: Patient is on scheduled Valium. According to her home med list she received this nightly. I am going to back this off to just nightly. (7) COPD (chronic obstructive pulmonary disease) Qualifiers: COPD type: unspecified COPD Qualified Code(s): J44.9 - Chronic obstructive pulmonary disease, unspecified Is this a current diagnosis for this admission?: Yes Plan: Without acute exacerbation. Continue various inhalers and nebulizers. (8) Hyponatremia Plan: Stable and likely due to acute infection from uti. - Time Time Spent with patient: 15-24 minutes - Inpatient Certification Medical Necessity: Need Close Monitoring Due to Risk of Patient Decompensation
[2017-02-10] MEDS: METFORMIN HCL 500 MG TABLET PO SCH (17:52)
--- NOTE | 2017-02-10 18:47 | PDOC PROGRESS REPORT ---
Subjective Progress Note for:: 02/10/17 Subjective:: Patient eating resting comfortably in bed. Complaining of left hip pain. Physical Exam Vital Signs: Temp Pulse Resp BP Pulse Ox 36.8 C 97 18 111/60 91 L 02/10/17 15:35 02/10/17 15:35 02/10/17 15:35 02/10/17 15:35 02/10/17 15:35 Intake & Output 02/09/17 02/10/17 02/11/17 06:59 06:59 06:59 Intake Total 633 1921 Output Total 750 1335 Balance -117 586 Weight 68.3 kg 74.6 kg General appearance: PRESENT: no acute distress Adult Front & Back Image: 1 - Incisions and dressings are dry clean and intact. Neurovascular intact distally. No ecchymosis. Results Laboratory Results: 02/10/17 04:48 02/10/17 04:48 02/10/17 02/10/17 04:48 04:48 WBC 10.1 RBC 3.88 Hgb 11.8 L Hct 36.0 MCV 93 MCH 30.3 MCHC 32.7 RDW 16.0 H Plt Count 210 Sodium 132.3 L Potassium 4.5 Chloride 99 Carbon Dioxide 26 Anion Gap 7 BUN 17 Creatinine 0.72 Est GFR ( Amer) > 60 Est GFR (Non-Af Amer) > 60 Glucose 349 H Calcium 8.8 02/08/17 02/08/17 02/08/17 13:15 13:15 18:20 Creatine Kinase 287 H 220 H Troponin I < 0.012 02/08/17 02/09/17 02/09/17 18:20 00:15 00:15 Creatine Kinase 179 H Troponin I < 0.012 < 0.012 Impressions: Femur X-Ray 02/08/17 08:20 IMPRESSION: Nondisplaced left intratrochanteric hip fracture. Chest X-Ray 02/08/17 08:21 IMPRESSION: NO ACUTE RADIOGRAPHIC FINDING IN THE CHEST. Fluoroscopy 02/09/17 00:00 IMPRESSION: Please see combined report for performance of procedure and radiologic supervision and interpretation. Hip X-Ray 02/09/17 00:00 IMPRESSION: IMAGE(S) OBTAINED DURING PROCEDURE. Assessment & Plan - Plan Summary Plan Summary: Patient is 71 POD #1 from cephalo-medullary nailing of left intertrochanteric hip fracture. Continue physical therapy Continue pain control Continue DVT prophylaxis Awaiting shelter facility placement
[2017-02-10] MEDS: RIVAROXABAN 10 MG TABLET PO SCH (21:24)
[2017-02-11] MEDS: AMITRIPTYLINE HCL 25 MG TABLET PO SCH ×3 (05:54→22:28)
[2017-02-11] MEDS: DIAZEPAM 5 MG TABLET PO SCH ×3 (05:54→22:29)
[2017-02-11 06:39] LABS: HEMATOCRIT 35.1 % (36.0-47.0); HEMOGLOBIN 11.3 g/dL (12.0-15.5); HGB HCT DIFFERENCE -1.2; MEAN CORPUSCULAR HEMOGLOBIN 29.5 pg (27.0-33.4); MEAN CORPUSCULAR HGB CONC 32.1 g/dL (32.0-36.0); MEAN CORPUSCULAR VOLUME 92 fl (80-97); RED BLOOD COUNT 3.82 10^6/uL (3.72-5.28); RED CELL DISTRIBUTION WIDTH 15.6 % (11.5-14.0); WHITE BLOOD COUNT 9.2 10^3/uL (4.0-10.5)
[2017-02-11] MEDS: METFORMIN HCL 500 MG TABLET PO SCH ×2 (08:48→16:47)
[2017-02-11] MEDS: MORPHINE SULFATE 10 MG/ML INJ IV PRN (08:48)
[2017-02-11] MEDS: INSULIN LISPRO 100 UNIT/ML 3 ML VIAL SUBCUT PRN ×4 (08:49→22:35)
--- NOTE | 2017-02-11 12:20 | PDOC PROGRESS REPORT ---
Subjective Progress Note for:: 02/10/17 Subjective:: Patient seems to be doing somewhat better however she is noted to be lethargic today and very sleepy. Patient is status post surgery. Patient is not noted to have any chest arm or neck discomfort. Patient not noted to have or describing any PND, orthopnea.. Patient not noted to have fever chills. Patient does not seem to be in any other significant discomfort. Patient is maintaining sinus rhythm without any sustained tachycardia or bradycardia arrhythmias. System review: No significant changes Medications reviewed. Physical Exam Vital Signs: Temp Pulse Resp BP Pulse Ox 98.3 F 97 18 111/60 91 L 02/10/17 15:35 02/10/17 15:35 02/10/17 15:35 02/10/17 15:35 02/10/17 15:35 Intake & Output 02/09/17 02/10/17 02/11/17 06:59 06:59 06:59 Intake Total 633 1921 923 Output Total 750 1335 1100 Balance -117 586 -177 Weight 68.3 kg 74.6 kg Exam: GENERAL: well-nourished and in no acute distress. Alert and oriented x3. Patient however noted to be sleepy and lethargic but answers to questions appropriately. HEAD: Atraumatic, normocephalic. EYES: Pupils equal round and reactive to light, extraocular movements intact, sclera anicteric, conjunctiva are normal. ENT: TMs normal, nares patent, oropharynx clear without exudates. Moist mucous membranes. No oral ulcerations or bleeding gums noted NECK: supple without lymphadenopathy. Trachea is central. No cervical or axillary lymphadenopathy noted. Carotids are 2+, JVD WNL LUNGS: Respiration seems nonlabored, no significant accessory muscle action noted. Breath sounds clear to auscultation bilaterally and equal noted. No wheezes rales or rhonchi noted. No significant dullness noted on percussion. CHEST: Palpation of the chest wall shows no significant chest wall tenderness. No other significant abnormalities noted. HEART: [place] [employer], No PSH, 1/6 SADIE aortic area, 1/6 navas systolic murmur mitral area, no rubs, no gallops. ABDOMEN: Soft, no significant tenderness appreciated, normoactive bowel sounds. No guarding, no rebound. No rigidity noted . No masses appreciated. EXTREMITIES: Pedal pulses are 1-2+, no calf tenderness noted. No clubbing or cyanosis.trace to 1+ pedal edema noted. Patient noted to have loss of great toe on the left side and multiple superficial excoriation and ulcerations on multiple toes on both legs. NEUROLOGICAL: Focused neurological exam showed no significant neurologic deficit. Normal speech, no focal weakness appreciated. PSYCH: Normal mood, normal affect. Judgment and insight within normal limits. SKIN: No significant ecchymosis, rash, ulcerations or signs of pruritus noted. MUSCULOSKELETAL EXAM: No significant joint swelling noted. Results Laboratory Results: 02/10/17 04:48 02/10/17 04:48 02/10/17 02/10/17 04:48 04:48 WBC 10.1 RBC 3.88 Hgb 11.8 L Hct 36.0 MCV 93 MCH 30.3 MCHC 32.7 RDW 16.0 H Plt Count 210 Sodium 132.3 L Potassium 4.5 Chloride 99 Carbon Dioxide 26 Anion Gap 7 BUN 17 Creatinine 0.72 Est GFR ( Amer) > 60 Est GFR (Non-Af Amer) > 60 Glucose 349 H Calcium 8.8 02/08/17 02/08/17 02/08/17 13:15 13:15 18:20 Creatine Kinase 287 H 220 H Troponin I < 0.012 02/08/17 02/09/17 02/09/17 18:20 00:15 00:15 Creatine Kinase 179 H Troponin I < 0.012 < 0.012 Impressions: Femur X-Ray 02/08/17 08:20 IMPRESSION: Nondisplaced left intratrochanteric hip fracture. Chest X-Ray 02/08/17 08:21 IMPRESSION: NO ACUTE RADIOGRAPHIC FINDING IN THE CHEST. Fluoroscopy 02/09/17 00:00 IMPRESSION: Please see combined report for performance of procedure and radiologic supervision and interpretation. Hip X-Ray 02/09/17 00:00 IMPRESSION: IMAGE(S) OBTAINED DURING PROCEDURE. Assessment & Plan - Diagnosis (1) Abnormal electrocardiogram Is this a current diagnosis for this admission?: Yes (2) Preoperative cardiovascular examination Is this a current diagnosis for this admission?: Yes (3) Diabetes type 2, uncontrolled Qualifiers: Diabetes mellitus complication status: with unspecified complications Diabetes mellitus longterm insulin use: unspecified watermaster insulin use status Qualified Code(s): E11.8 - Type 2 diabetes mellitus with unspecified complications; E11.65 - Type 2 diabetes mellitus with hyperglycemia Is this a current diagnosis for this admission?: Yes (4) Fracture of left hip Qualifiers: Encounter type: initial encounter Fracture type: closed Qualified Code(s) : S72.002A - Fracture of unspecified part of neck of left femur, initial encounter for closed fracture Is this a current diagnosis for this admission?: Yes (5) COPD (chronic obstructive pulmonary disease) Qualifiers: COPD type: unspecified COPD Qualified Code(s): J44.9 - Chronic obstructive pulmonary disease, unspecified Is this a current diagnosis for this admission?: Yes (6) Hypertension Qualifiers: Hypertension type: essential hypertension Qualified Code(s): I10 - Essential (primary) hypertension Is this a current diagnosis for this admission?: Yes (7) Tobacco abuse Is this a current diagnosis for this admission?: Yes (8) Hyperlipidemia Qualifiers: Hyperlipidemia type: unspecified Qualified Code(s): E78.5 - Hyperlipidemia , unspecified Is this a current diagnosis for this admission?: Yes - Notes Notes: Abnormal electrocardiogram: Currently stable. 2D echo shows normal LVEF. No significant stenotic or regurgitant valvular lesion noted. Recommend pulmonary toilet, but adequate pain control, observation for alcohol withdrawal etc. Diabetes: Currently uncontrolled. Recommend better control of diabetes. This is being instituted by hospitalist. Fracture left hip: Currently is stable. Patient is status post surgery. COPD: Continue bronchodilator and steroid therapy as needed for good control of COPD. Currently seems to be satisfactorily controlled. Hypertension: Blood pressure goal should be 135/85 or less. Currently reasonably well controlled. Dyslipidemia: Patient has history of dyslipidemia. Statins has been shown to reduce perioperative risk. Continue with statin therapy. Tobacco abuse: Patient advised to quit smoking. Patient is status post day 1 postop. Currently doing well. Cardiac she is stable. She is noted to be somewhat sleepy. Will observe for 1 more day and then sign off. - Time Time with patient: 15-25 minutes - CODE STATUS was discussed, patient remains full code. Surrogate decision-maker unchanged. Multiple medical problems were addressed. More than 50% of the time spent coordinating care, discussing management plans with involved caregivers. Management plans discussed with involved personnels. Medical decision making was of moderate to high complexity , patient's has multiple comorbidities. Medications reviewed and adjusted accordingly: Yes
--- NOTE | 2017-02-11 12:23 | PDOC PROGRESS REPORT ---
Subjective Progress Note for:: 02/11/17 Subjective:: Date to postop. Patient is status post surgery. Patient was noted to be agitated and trying to climb out of bed yesterday. Patient have a sitter to observe her. Patient noted to be somewhat confused. Patient is not noted to have any chest arm or neck discomfort. Patient not noted to have or describing any PND, orthopnea.. Patient not noted to have fever chills. Patient does not seem to be in any other significant discomfort. Patient is maintaining sinus rhythm without any sustained tachycardia or bradycardia arrhythmias. System review: No significant changes Medications reviewed. Physical Exam Vital Signs: Temp Pulse Resp BP Pulse Ox 98.0 F 105 H 20 117/65 94 02/10/17 23:39 02/11/17 07:00 02/10/17 23:39 02/10/17 23:39 02/10/17 23:39 Intake & Output 02/10/17 02/11/17 02/12/17 06:59 06:59 06:59 Intake Total 1921 1263 Output Total 1335 1100 Balance 586 163 Weight 74.6 kg 75 kg Exam: GENERAL: well-nourished and in no acute distress. Patient is alert but not oriented to place time or person. HEAD: Atraumatic, normocephalic. EYES: Pupils equal round and reactive to light, extraocular movements intact, sclera anicteric, conjunctiva are normal. ENT: TMs normal, nares patent, oropharynx clear without exudates. Moist mucous membranes. No oral ulcerations or bleeding gums noted NECK: supple without lymphadenopathy or JVD. Trachea is central. No cervical or axillary lymphadenopathy noted. Carotids are 2+ LUNGS: Breath sounds bibasilar fine crackles at bases. No significant dullness noted. CHEST: Palpation of chest wall shows no significant chest wall tenderness. HEART: [place] RN [facility], No PSH, 2/6 SADIE aortic area, 1/6 navas systolic murmur mitral area, rubs or gallops. ABDOMEN: Soft, no significant tenderness appreciated, normoactive bowel sounds. No guarding, no rebound. No rigidity noted . No masses appreciated. EXTREMITIES: Pedal pulses are 1-2+, no calf tenderness noted, Trace + pedal edema noted. No clubbing or cyanosis. Loss of great toe on the left side and multiple ulcerations superficial noted multiple toes both lower extremities. NEUROLOGICAL: Patient is alert but is not able to participate in neurological exam because of patient's current mental status PSYCH: Patient cannot participate in a neurologic and psych exam because of the patient's current mental status SKIN: No significant ecchymosis, rash, ulcerations or signs of pruritus noted. MUSCULOSKELETAL EXAM: No significant joint swelling noted. Results Laboratory Results: 02/11/17 06:02 02/10/17 04:48 02/11/17 06:02 WBC 9.2 RBC 3.82 Hgb 11.3 L Hct 35.1 L MCV 92 MCH 29.5 MCHC 32.1 RDW 15.6 H Plt Count 212 02/08/17 02/08/17 02/08/17 13:15 13:15 18:20 Creatine Kinase 287 H 220 H Troponin I < 0.012 02/08/17 02/09/17 02/09/17 18:20 00:15 00:15 Creatine Kinase 179 H Troponin I < 0.012 < 0.012 Impressions: Femur X-Ray 02/08/17 08:20 IMPRESSION: Nondisplaced left intratrochanteric hip fracture. Chest X-Ray 02/08/17 08:21 IMPRESSION: NO ACUTE RADIOGRAPHIC FINDING IN THE CHEST. Fluoroscopy 02/09/17 00:00 IMPRESSION: Please see combined report for performance of procedure and radiologic supervision and interpretation. Hip X-Ray 02/09/17 00:00 IMPRESSION: IMAGE(S) OBTAINED DURING PROCEDURE. Assessment & Plan - Diagnosis (1) Abnormal electrocardiogram Is this a current diagnosis for this admission?: Yes (2) Preoperative cardiovascular examination Is this a current diagnosis for this admission?: Yes (3) Diabetes type 2, uncontrolled Qualifiers: Diabetes mellitus complication status: with unspecified complications Diabetes mellitus terminal press operator insulin use: unspecified alf insulin use status Qualified Code(s): E11.8 - Type 2 diabetes mellitus with unspecified complications; E11.65 - Type 2 diabetes mellitus with hyperglycemia Is this a current diagnosis for this admission?: Yes (4) Fracture of left hip Qualifiers: Encounter type: initial encounter Fracture type: closed Qualified Code(s) : S72.002A - Fracture of unspecified part of neck of left femur, initial encounter for closed fracture Is this a current diagnosis for this admission?: Yes (5) COPD (chronic obstructive pulmonary disease) Qualifiers: COPD type: unspecified COPD Qualified Code(s): J44.9 - Chronic obstructive pulmonary disease, unspecified Is this a current diagnosis for this admission?: Yes (6) Hypertension Qualifiers: Hypertension type: essential hypertension Qualified Code(s): I10 - Essential (primary) hypertension Is this a current diagnosis for this admission?: Yes (7) Tobacco abuse Is this a current diagnosis for this admission?: Yes (8) Hyperlipidemia Qualifiers: Hyperlipidemia type: unspecified Qualified Code(s): E78.5 - Hyperlipidemia , unspecified Is this a current diagnosis for this admission?: Yes - Notes Notes: Abnormal electrocardiogram: Stable without any significant cardiac dysrhythmias. 2D echo showed normal LVEF. Diabetes: Currently uncontrolled. Recommend better control of diabetes. This is being instituted by hospitalist. Fracture left hip: Currently is status post surgery. COPD: Continue bronchodilator and steroid therapy as needed for good control of COPD. Currently seems to be satisfactorily controlled. Hypertension: Blood pressure goal should be 135/85 or less. Currently reasonably well controlled. Dyslipidemia: Patient has history of dyslipidemia. Continue with statin therapy. Will sign off. Please reconsult if needed - Time Time with patient: 15-25 minutes - CODE STATUS was discussed, patient remains full code. Surrogate decision-maker unchanged. Multiple medical problems were addressed. More than 50% of the time spent coordinating care, discussing management plans with involved caregivers. Management plans discussed with involved personnels. Medical decision making was of moderate to high complexity , patient's has multiple comorbidities. Medications reviewed and adjusted accordingly: Yes
[2017-02-11] MEDS: FAMOTIDINE 20 MG TABLET PO SCH ×2 (14:58→22:28)
[2017-02-11] MEDS: RAMIPRIL 10 MG CAPSULE PO SCH (14:58)
[2017-02-11] MEDS: FOLIC ACID 1 MG TABLET PO SCH (14:58)
[2017-02-11] MEDS: MULTIVITAMIN TABLET PO SCH (14:58)
[2017-02-11] MEDS: THIAMINE HCL 100 MG TABLET PO SCH (14:58)
[2017-02-11] MEDS: PYRIDOXINE HCL 50 MG TABLET PO SCH (14:58)
[2017-02-11] MEDS: CYANOCOBALAMIN (VITAMIN B-12) 1,000 MCG TABLET PO SCH (14:58)
[2017-02-11] MEDS: FERROUS SULFATE 325 MG TABLET PO SCH (14:58)
[2017-02-11] MEDS: ATORVASTATIN CALCIUM 10 MG TABLET PO SCH (14:58)
[2017-02-11] MEDS: DULOXETINE HCL 30 MG CAPSULE.DR PO SCH (14:58)
[2017-02-11] MEDS: CEFTRIAXONE 1 GM/D5W RTU 1 GM/50 ML RTUPB IV SCH (15:03)
[2017-02-11] MEDS: NICOTINE 21 MG/24 HR PATCH.TD24 TD SCH (15:04)
[2017-02-11] MEDS: INSULIN REG, HUMAN 100 UNIT/ML 3 ML VIAL (PYX) SUBCUT SCH (16:47)
--- NOTE | 2017-02-11 16:47 | PDOC PROGRESS REPORT ---
Subjective Progress Note for:: 02/11/17 Subjective:: Patient resting comfortably in bed. No issues overnight. Physical Exam Vital Signs: Temp Pulse Resp BP Pulse Ox 36.7 C 91 20 117/65 94 02/10/17 23:39 02/11/17 14:00 02/10/17 23:39 02/10/17 23:39 02/10/17 23:39 Intake & Output 02/10/17 02/11/17 02/12/17 06:59 06:59 06:59 Intake Total 1921 1263 340 Output Total 1335 1100 Balance 586 163 340 Weight 74.6 kg 75 kg General appearance: PRESENT: no acute distress Head exam: PRESENT: atraumatic Adult Front & Back Image: 1 - Dressing and incision is dry clean and intact. Neurovascularly intact distally. No deformities. Results Laboratory Results: 02/11/17 06:02 02/10/17 04:48 02/11/17 06:02 WBC 9.2 RBC 3.82 Hgb 11.3 L Hct 35.1 L MCV 92 MCH 29.5 MCHC 32.1 RDW 15.6 H Plt Count 212 02/08/17 02/08/17 02/08/17 13:15 13:15 18:20 Creatine Kinase 287 H 220 H Troponin I < 0.012 02/08/17 02/09/17 02/09/17 18:20 00:15 00:15 Creatine Kinase 179 H Troponin I < 0.012 < 0.012 Impressions: Femur X-Ray 02/08/17 08:20 IMPRESSION: Nondisplaced left intratrochanteric hip fracture. Chest X-Ray 02/08/17 08:21 IMPRESSION: NO ACUTE RADIOGRAPHIC FINDING IN THE CHEST. Fluoroscopy 02/09/17 00:00 IMPRESSION: Please see combined report for performance of procedure and radiologic supervision and interpretation. Hip X-Ray 02/09/17 00:00 IMPRESSION: IMAGE(S) OBTAINED DURING PROCEDURE. Assessment & Plan - Plan Summary Plan Summary: Patient is 71-year-old female POD #2 from intramedullary nailing of left hip fracture. Continue physical therapy Continue pain control Continue DVT prophylaxis Awaiting halfway facility placement
--- NOTE | 2017-02-11 21:24 | PDOC PROGRESS REPORT ---
Subjective Progress Note for:: 02/11/17 Subjective:: This is a follow-up visit for hip fracture and urinary tract infection. The patient is status post pinning of her left hip. Currently she does not complain of anything. Overnight the patient did have what sounds like an episode of delirium. She made repeated attempts to get out of bed and was somewhat combative. She displayed a decrease oxygen saturation along with her confusion. A sitter was obtained and is currently sitting outside of her door now. The nurse called the surgeon last night and got permission to discontinue her morphine and try p.o. medications. The patient did work with physical therapy today who felt that she put forth good effort. They have formally recommended SNF placement. The patient is in agreement with this. Physical Exam Vital Signs: Temp Pulse Resp BP Pulse Ox 98.0 F 91 20 117/65 94 02/10/17 23:39 02/11/17 14:00 02/10/17 23:39 02/10/17 23:39 02/10/17 23:39 Intake & Output 02/10/17 02/11/17 02/12/17 06:59 06:59 06:59 Intake Total 1921 1263 450 Output Total 1335 1100 Balance 586 163 450 Weight 74.6 kg 75 kg GENERAL: This is a well-developed and nourished appearing white female resting in bed currently in no acute distress eating. HEART: Regular rate and rhythm. No murmurs, rubs or gallops. LUNGS: Clear to auscultation with equal rise and fall of the chest. ABDOMEN: Soft, nontender, nondistended with normoactive bowel sounds EXTREMETIES: No clubbing, cyanosis or edema. The patient has a left great toe amputation. 2+ peripheral pulses bilaterally. NEURO: Awake, alert and oriented 3. Cranial nerves are grossly intact. Results Laboratory Results: 02/11/17 06:02 02/10/17 04:48 02/11/17 06:02 WBC 9.2 RBC 3.82 Hgb 11.3 L Hct 35.1 L MCV 92 MCH 29.5 MCHC 32.1 RDW 15.6 H Plt Count 212 02/08/17 02/08/17 02/08/17 13:15 13:15 18:20 Creatine Kinase 287 H 220 H Troponin I < 0.012 02/08/17 02/09/17 02/09/17 18:20 00:15 00:15 Creatine Kinase 179 H Troponin I < 0.012 < 0.012 Impressions: Femur X-Ray 02/08/17 08:20 IMPRESSION: Nondisplaced left intratrochanteric hip fracture. Chest X-Ray 02/08/17 08:21 IMPRESSION: NO ACUTE RADIOGRAPHIC FINDING IN THE CHEST. Fluoroscopy 02/09/17 00:00 IMPRESSION: Please see combined report for performance of procedure and radiologic supervision and interpretation. Hip X-Ray 02/09/17 00:00 IMPRESSION: IMAGE(S) OBTAINED DURING PROCEDURE. Assessment & Plan - Diagnosis (1) Intertrochanteric fracture of left femur Qualifiers: Encounter type: initial encounter Fracture type: closed Is this a current diagnosis for this admission?: Yes Plan: Management as per orthopedic surgery. Status post pinning. Continue PT and OT. Will need to place and rehab. (2) UTI (urinary tract infection) Qualifiers: Urinary tract infection type: acute cystitis Hematuria presence: with hematuria Qualified Code(s): N30.01 - Acute cystitis with hematuria Is this a current diagnosis for this admission?: Yes Plan: Gram-negative rods consistent with Serratia were found in the urine. This organism is susceptible to Rocephin. Continue current management. (3) Diabetes type 2, uncontrolled Qualifiers: Diabetes mellitus complication status: with unspecified complications Diabetes mellitus senior care insulin use: unspecified senior care insulin use status Qualified Code(s): E11.8 - Type 2 diabetes mellitus with unspecified complications; E11.65 - Type 2 diabetes mellitus with hyperglycemia Is this a current diagnosis for this admission?: Yes Plan: Continue sliding scale insulin. (4) Alcohol abuse Is this a current diagnosis for this admission?: Yes Plan: Cessation is recommended. (5) Anemia Qualifiers: Anemia type: unspecified type Qualified Code(s): D64.9 - Anemia, unspecified Is this a current diagnosis for this admission?: Yes Plan: Stable. The patient has had a slight postop drop. We will continue to monitor. For now it is not enough to deem this acute blood loss anemia. (6) Anxiety Is this a current diagnosis for this admission?: Yes Plan: Continue nightly Valium. (7) COPD (chronic obstructive pulmonary disease) Qualifiers: COPD type: unspecified COPD Qualified Code(s): J44.9 - Chronic obstructive pulmonary disease, unspecified Is this a current diagnosis for this admission?: Yes Plan: Without acute exacerbation. Continue various inhalers and nebulizers. (8) Hyponatremia Plan: Stable and likely due to acute infection from uti. (9) Delirium Plan: The patient had what sounds to be an episode of delirium overnight. Continue the sitter for now. The morphine was decreased which I concur with. Her Valium is only being given at night before bed. This may of course be secondary to postop delirium or even sundowning with worsening of undiagnosed underlying dementia. Again we will continue to monitor. - Time Time Spent with patient: 15-24 minutes Within: within 72 hours - Inpatient Certification Medical Necessity: Need Close Monitoring Due to Risk of Patient Decompensation
[2017-02-11] MEDS: HYDROCODONE/ACETAMINOPHEN 5-325 MG TABLET PO PRN (22:28)
[2017-02-11] MEDS: RIVAROXABAN 10 MG TABLET PO SCH (22:29)
[2017-02-11] MEDS: INSULIN GLARGINE,HUM.REC.ANLOG 300 UNIT/3 ML INSULN.PEN SUBCUT SCH (22:31)
[2017-02-12] MEDS: HYDROCODONE/ACETAMINOPHEN 5-325 MG TABLET PO PRN ×2 (04:42→12:50)
[2017-02-12 04:56] LABS: HEMATOCRIT 34.7 % (36.0-47.0); HEMOGLOBIN 11.5 g/dL (12.0-15.5); HGB HCT DIFFERENCE -0.2; MEAN CORPUSCULAR VOLUME 91 fl (80-97); RED BLOOD COUNT 3.82 10^6/uL (3.72-5.28); WHITE BLOOD COUNT 8.5 10^3/uL (4.0-10.5)
[2017-02-12] MEDS: AMITRIPTYLINE HCL 25 MG TABLET PO SCH ×3 (05:18→21:28)
--- NOTE | 2017-02-12 07:21 | PDOC PROGRESS REPORT ---
Subjective Subjective:: Patient seen and evaluated this morning. Lying in bed comfortably. States pain in left hip is improving. Denies chest pain shortness of breath. Physical Exam Vital Signs: Temp Pulse Resp BP Pulse Ox 97.9 F 72 20 116/65 98 02/12/17 03:09 02/12/17 03:09 02/12/17 03:09 02/12/17 03:09 02/12/17 03:09 Intake & Output 02/11/17 02/12/17 02/13/17 06:59 06:59 06:59 Intake Total 1263 450 Output Total 1100 Balance 163 450 Weight 75 kg 73.6 kg Musculoskeletal exam: PRESENT: other - Left hip: Dressing clean/dry/intact no erythema or drainage. Pain with terminal internal rotation. Intact plantar flexion/dorsiflexion. No calf tenderness. Results Laboratory Results: 02/12/17 04:28 02/10/17 04:48 02/12/17 04:28 WBC 8.5 RBC 3.82 Hgb 11.5 L Hct 34.7 L MCV 91 MCH 30.0 MCHC 33.0 RDW 16.0 H Plt Count 236 02/08/17 02/08/17 02/08/17 13:15 13:15 18:20 Creatine Kinase 287 H 220 H Troponin I < 0.012 02/08/17 02/09/17 02/09/17 18:20 00:15 00:15 Creatine Kinase 179 H Troponin I < 0.012 < 0.012 Impressions: Femur X-Ray 02/08/17 08:20 IMPRESSION: Nondisplaced left intratrochanteric hip fracture. Chest X-Ray 02/08/17 08:21 IMPRESSION: NO ACUTE RADIOGRAPHIC FINDING IN THE CHEST. Fluoroscopy 02/09/17 00:00 IMPRESSION: Please see combined report for performance of procedure and radiologic supervision and interpretation. Hip X-Ray 02/09/17 00:00 IMPRESSION: IMAGE(S) OBTAINED DURING PROCEDURE. Assessment & Plan - Diagnosis (1) Intertrochanteric fracture of left femur Qualifiers: Encounter type: initial encounter Fracture type: closed Is this a current diagnosis for this admission?: Yes Plan: Status post IM nail left hip: #1 physical therapy weightbearing as tolerated #2 pain control #3 Xarelto for DVT prophylaxis #4 discharge planning to shelter facility when bed available
[2017-02-12] MEDS: METFORMIN HCL 500 MG TABLET PO SCH ×2 (07:57→17:23)
[2017-02-12] MEDS: INSULIN LISPRO 100 UNIT/ML 3 ML VIAL SUBCUT PRN ×3 (07:57→17:23)
[2017-02-12] MEDS: INSULIN REG, HUMAN 100 UNIT/ML 3 ML VIAL (PYX) SUBCUT SCH ×3 (08:00→17:23)
[2017-02-12] MEDS: NICOTINE 21 MG/24 HR PATCH.TD24 TD SCH (10:13)
[2017-02-12] MEDS: CYANOCOBALAMIN (VITAMIN B-12) 1,000 MCG TABLET PO SCH (10:14)
[2017-02-12] MEDS: MULTIVITAMIN TABLET PO SCH (10:14)
[2017-02-12] MEDS: RAMIPRIL 10 MG CAPSULE PO SCH (10:14)
[2017-02-12] MEDS: FOLIC ACID 1 MG TABLET PO SCH (10:14)
[2017-02-12] MEDS: ATORVASTATIN CALCIUM 10 MG TABLET PO SCH (10:14)
[2017-02-12] MEDS: PYRIDOXINE HCL 50 MG TABLET PO SCH (10:15)
[2017-02-12] MEDS: FERROUS SULFATE 325 MG TABLET PO SCH (10:16)
[2017-02-12] MEDS: DULOXETINE HCL 30 MG CAPSULE.DR PO SCH (10:17)
[2017-02-12] MEDS: FAMOTIDINE 20 MG TABLET PO SCH ×2 (10:17→21:28)
[2017-02-12] MEDS: CEFTRIAXONE 1 GM/D5W RTU 1 GM/50 ML RTUPB IV SCH (10:17)
[2017-02-12] MEDS: THIAMINE HCL 100 MG TABLET PO SCH (10:23)
[2017-02-12] MEDS: MORPHINE SULFATE 10 MG/ML INJ IV PRN (19:56)
[2017-02-12] MEDS: RIVAROXABAN 10 MG TABLET PO SCH (21:27)
[2017-02-12] MEDS: INSULIN GLARGINE,HUM.REC.ANLOG 300 UNIT/3 ML INSULN.PEN SUBCUT SCH (21:27)
[2017-02-12] MEDS: DIAZEPAM 5 MG TABLET PO SCH (21:28)
[2017-02-13] MEDS: MORPHINE SULFATE 10 MG/ML INJ IV PRN ×2 (02:30→09:48)
[2017-02-13] MEDS: AMITRIPTYLINE HCL 25 MG TABLET PO SCH ×3 (05:27→22:13)
[2017-02-13] MEDS: INSULIN LISPRO 100 UNIT/ML 3 ML VIAL SUBCUT PRN ×3 (08:13→22:22)
[2017-02-13] MEDS: INSULIN REG, HUMAN 100 UNIT/ML 3 ML VIAL (PYX) SUBCUT SCH ×3 (08:13→16:56)
[2017-02-13] MEDS: METFORMIN HCL 500 MG TABLET PO SCH ×2 (08:13→16:56)
[2017-02-13] MEDS: FOLIC ACID 1 MG TABLET PO SCH (09:49)
[2017-02-13] MEDS: DULOXETINE HCL 30 MG CAPSULE.DR PO SCH (09:49)
[2017-02-13] MEDS: THIAMINE HCL 100 MG TABLET PO SCH (09:49)
[2017-02-13] MEDS: FAMOTIDINE 20 MG TABLET PO SCH ×2 (09:49→22:13)
[2017-02-13] MEDS: CEFTRIAXONE 1 GM/D5W RTU 1 GM/50 ML RTUPB IV SCH (09:50)
[2017-02-13] MEDS: CYANOCOBALAMIN (VITAMIN B-12) 1,000 MCG TABLET PO SCH (09:50)
[2017-02-13] MEDS: ATORVASTATIN CALCIUM 10 MG TABLET PO SCH (09:50)
[2017-02-13] MEDS: FERROUS SULFATE 325 MG TABLET PO SCH (09:50)
[2017-02-13] MEDS: MULTIVITAMIN TABLET PO SCH (09:50)
[2017-02-13] MEDS: PYRIDOXINE HCL 50 MG TABLET PO SCH (09:51)
[2017-02-13] MEDS: NICOTINE 21 MG/24 HR PATCH.TD24 TD SCH (09:51)
[2017-02-13] MEDS: RAMIPRIL 10 MG CAPSULE PO SCH (09:51)
--- NOTE | 2017-02-13 13:19 | PDOC PROGRESS REPORT ---
Subjective Subjective:: Patient seen and evaluated. Lying in bed comfortably. Physical Exam Vital Signs: Temp Pulse Resp BP Pulse Ox 98.5 F 81 12 106/53 L 99 02/13/17 12:13 02/13/17 12:13 02/13/17 12:13 02/13/17 12:13 02/13/17 12:13 Intake & Output 02/12/17 02/13/17 02/14/17 06:59 06:59 06:59 Intake Total 450 720 Balance 450 720 Weight 73.6 kg 73.3 kg Musculoskeletal exam: PRESENT: other - Left lower extremity: Dressing clean/dry/ intact no erythema or drainage. Intact plantar flexion/dorsiflexion. Minimal thigh swelling. No sensory deficits. Results Laboratory Results: 02/12/17 04:28 02/10/17 04:48 02/08/17 02/08/17 02/08/17 13:15 13:15 18:20 Creatine Kinase 287 H 220 H Troponin I < 0.012 02/08/17 02/09/17 02/09/17 18:20 00:15 00:15 Creatine Kinase 179 H Troponin I < 0.012 < 0.012 Impressions: Femur X-Ray 02/08/17 08:20 IMPRESSION: Nondisplaced left intratrochanteric hip fracture. Chest X-Ray 02/08/17 08:21 IMPRESSION: NO ACUTE RADIOGRAPHIC FINDING IN THE CHEST. Fluoroscopy 02/09/17 00:00 IMPRESSION: Please see combined report for performance of procedure and radiologic supervision and interpretation. Hip X-Ray 02/09/17 00:00 IMPRESSION: IMAGE(S) OBTAINED DURING PROCEDURE. Assessment & Plan - Diagnosis (1) Intertrochanteric fracture of left femur Qualifiers: Encounter type: initial encounter Fracture type: closed Is this a current diagnosis for this admission?: Yes Plan: Status post IM nail left hip: #1 physical therapy weightbearing as tolerated #2 pain control #3 Xarelto for DVT prophylaxis #4 [facility]
--- NOTE | 2017-02-13 17:44 | PDOC PROGRESS REPORT ---
Subjective Progress Note for:: 02/13/17 Subjective:: Patient complains of hip pain. She was up physical therapy earlier. Physical Exam Vital Signs: Temp Pulse Resp BP Pulse Ox 98.5 F 90 12 106/53 L 99 02/13/17 12:13 02/13/17 14:00 02/13/17 12:13 02/13/17 12:13 02/13/17 12:13 Intake & Output 02/12/17 02/13/17 02/14/17 06:59 06:59 06:59 Intake Total 450 720 Balance 450 720 Weight 73.6 kg 73.3 kg General appearance: PRESENT: no acute distress Eye exam: PRESENT: conjunctiva pink. ABSENT: scleral icterus Mouth exam: PRESENT: moist, tongue midline Neck exam: ABSENT: JVD Respiratory exam: PRESENT: clear to auscultation lauren. ABSENT: rales, rhonchi, wheezes Cardiovascular exam: PRESENT: RRR. ABSENT: diastolic murmur, rubs, systolic murmur GI/Abdominal exam: PRESENT: normal bowel sounds, soft. ABSENT: distended, guarding, mass, organolmegaly, rebound, tenderness Extremities exam: ABSENT: calf tenderness, clubbing, pedal edema Neurological exam: PRESENT: oriented to person, oriented to place. ABSENT: oriented to time, oriented to situation Psychiatric exam: PRESENT: appropriate affect Skin exam: PRESENT: dry, intact, warm. ABSENT: cyanosis, rash Results Laboratory Results: 02/12/17 04:28 02/10/17 04:48 02/08/17 13:15 Blood Blood Culture - Final NO GROWTH IN 5 DAYS 02/08/17 02/08/17 02/08/17 13:15 13:15 18:20 Creatine Kinase 287 H 220 H Troponin I < 0.012 02/08/17 02/09/17 02/09/17 18:20 00:15 00:15 Creatine Kinase 179 H Troponin I < 0.012 < 0.012 Impressions: Femur X-Ray 02/08/17 08:20 IMPRESSION: Nondisplaced left intratrochanteric hip fracture. Chest X-Ray 02/08/17 08:21 IMPRESSION: NO ACUTE RADIOGRAPHIC FINDING IN THE CHEST. Fluoroscopy 02/09/17 00:00 IMPRESSION: Please see combined report for performance of procedure and radiologic supervision and interpretation. Hip X-Ray 02/09/17 00:00 IMPRESSION: IMAGE(S) OBTAINED DURING PROCEDURE. Assessment & Plan - Diagnosis (1) Fracture of left hip Qualifiers: Encounter type: initial encounter Fracture type: closed Qualified Code(s) : S72.002A - Fracture of unspecified part of neck of left femur, initial encounter for closed fracture Is this a current diagnosis for this admission?: Yes Plan: Patient has had surgical repair and will continue physical therapy. (2) Diabetes type 2, uncontrolled Qualifiers: Diabetes mellitus complication status: with unspecified complications Diabetes mellitus jail insulin use: unspecified jail insulin use status Qualified Code(s): E11.8 - Type 2 diabetes mellitus with unspecified complications; E11.65 - Type 2 diabetes mellitus with hyperglycemia Is this a current diagnosis for this admission?: Yes Plan: Continue Lantus and sliding scale insulin. (3) Hyperlipidemia Qualifiers: Hyperlipidemia type: unspecified Qualified Code(s): E78.5 - Hyperlipidemia , unspecified Is this a current diagnosis for this admission?: Yes (4) Anemia Qualifiers: Anemia type: unspecified type Qualified Code(s): D64.9 - Anemia, unspecified Is this a current diagnosis for this admission?: Yes Plan: Hemoglobin stable. (5) COPD (chronic obstructive pulmonary disease) Qualifiers: COPD type: unspecified COPD Qualified Code(s): J44.9 - Chronic obstructive pulmonary disease, unspecified Is this a current diagnosis for this admission?: Yes (6) Depression Is this a current diagnosis for this admission?: Yes (7) Hypertension Qualifiers: Hypertension type: essential hypertension Qualified Code(s): I10 - Essential (primary) hypertension Is this a current diagnosis for this admission?: Yes (8) Restless leg syndrome Is this a current diagnosis for this admission?: Yes - Time Time Spent with patient: 25-34 minutes - Inpatient Certification Medical Necessity: Need Close Monitoring Due to Risk of Patient Decompensation
[2017-02-13] MEDS: DIAZEPAM 5 MG TABLET PO SCH (22:12)
[2017-02-13] MEDS: INSULIN GLARGINE,HUM.REC.ANLOG 300 UNIT/3 ML INSULN.PEN SUBCUT SCH (22:22)
[2017-02-13] MEDS: RIVAROXABAN 10 MG TABLET PO SCH (22:22)
[2017-02-13] MEDS: HYDROCODONE/ACETAMINOPHEN 5-325 MG TABLET PO PRN (23:03)
[2017-02-14] MEDS: MORPHINE SULFATE 10 MG/ML INJ IV PRN ×2 (02:36→09:44)
[2017-02-14] MEDS: AMITRIPTYLINE HCL 25 MG TABLET PO SCH ×3 (06:02→22:05)
[2017-02-14 06:46] LABS: ABSOLUTE BASOPHILS # (AUTO) 0.1 10^3/uL (0.0-0.2); ABSOLUTE EOSINOPHILS # (AUTO) 0.3 10^3/uL (0.0-0.6); ABSOLUTE LYMPHOCYTES (AUTO) 2.2 10^3/uL (0.5-4.7); ABSOLUTE MONOCYTES (AUTO) 0.7 10^3/uL (0.1-1.4); ABSOLUTE NEUT (AUTO) 5.2 10^3/uL (1.7-8.2); BASOPHILS % (AUTO) 1.2 % (0-2); EOSINOPHILS % (AUTO) 3.7 % (0-6); HEMATOCRIT 32.9 % (36.0-47.0); HEMOGLOBIN 10.9 g/dL (12.0-15.5); HGB HCT DIFFERENCE -0.2; LYMPHOCYTES % (AUTO) 25.3 % (13-45); MEAN CORPUSCULAR HEMOGLOBIN 30.1 pg (27.0-33.4); MEAN CORPUSCULAR HGB CONC 33.2 g/dL (32.0-36.0); MEAN CORPUSCULAR VOLUME 91 fl (80-97); MONOCYTES % (AUTO) 8.6 % (3-13); RED BLOOD COUNT 3.64 10^6/uL (3.72-5.28); RED CELL DISTRIBUTION WIDTH 15.5 % (11.5-14.0); SEGMENTED NEUTROPHILS % (AUTO) 61.2 % (42-78); WHITE BLOOD COUNT 8.6 10^3/uL (4.0-10.5)
[2017-02-14 07:10] LABS: ANION GAP 6 (5-19); BLOOD UREA NITROGEN 11 mg/dL (7-20); CARBON DIOXIDE 30 mmol/L (22-30); CHLORIDE 101 mmol/L (98-107); CREATININE RESULT 0.59 mg/dL (0.52-1.25); GLUCOSE 229 mg/dL (75-110); POTASSIUM 3.9 mmol/L (3.6-5.0); SODIUM 136.8 mmol/L (137-145)
[2017-02-14] MEDS: METFORMIN HCL 500 MG TABLET PO SCH ×2 (08:44→16:26)
[2017-02-14] MEDS: INSULIN LISPRO 100 UNIT/ML 3 ML VIAL SUBCUT PRN ×4 (08:44→22:04)
[2017-02-14] MEDS: INSULIN REG, HUMAN 100 UNIT/ML 3 ML VIAL (PYX) SUBCUT SCH ×3 (08:44→16:27)
[2017-02-14] MEDS: FERROUS SULFATE 325 MG TABLET PO SCH (09:39)
[2017-02-14] MEDS: CYANOCOBALAMIN (VITAMIN B-12) 1,000 MCG TABLET PO SCH (09:39)
[2017-02-14] MEDS: FAMOTIDINE 20 MG TABLET PO SCH ×2 (09:39→22:05)
[2017-02-14] MEDS: FOLIC ACID 1 MG TABLET PO SCH (09:39)
[2017-02-14] MEDS: THIAMINE HCL 100 MG TABLET PO SCH (09:39)
[2017-02-14] MEDS: DULOXETINE HCL 30 MG CAPSULE.DR PO SCH (09:40)
[2017-02-14] MEDS: MULTIVITAMIN TABLET PO SCH (09:40)
[2017-02-14] MEDS: CEFTRIAXONE 1 GM/D5W RTU 1 GM/50 ML RTUPB IV SCH (09:40)
[2017-02-14] MEDS: ATORVASTATIN CALCIUM 10 MG TABLET PO SCH (09:40)
[2017-02-14] MEDS: PYRIDOXINE HCL 50 MG TABLET PO SCH (09:41)
[2017-02-14] MEDS: RAMIPRIL 10 MG CAPSULE PO SCH (09:41)
[2017-02-14] MEDS: NICOTINE 21 MG/24 HR PATCH.TD24 TD SCH (09:41)
[2017-02-14] MEDS: HYDROCODONE/ACETAMINOPHEN 5-325 MG TABLET PO PRN (16:26)
[2017-02-14 16:47] VITALS: BP 124/61
--- NOTE | 2017-02-14 17:22 | PDOC PROGRESS REPORT ---
Subjective Progress Note for:: 02/14/17 Subjective:: This is a follow-up visit for hip fracture and urinary tract infection. The patient is status post pinning of her left hip. Currently she does not complain of anything. No acute events overnight. The sitter still remains with patient. Physical Exam Vital Signs: Temp Pulse Resp BP Pulse Ox 97.8 F 80 12 124/61 98 02/14/17 15:55 02/14/17 15:55 02/14/17 15:55 02/14/17 15:55 02/14/17 15:55 Intake & Output 02/13/17 02/14/17 02/15/17 06:59 06:59 06:59 Intake Total 720 840 926 Output Total 4 200 Balance 720 836 726 Weight 73.3 kg 73.1 kg GENERAL: This is a well-developed and nourished appearing white female resting in bed currently in no acute distress sleeping. HEART: Regular rate and rhythm. No murmurs, rubs or gallops. LUNGS: Clear to auscultation with equal rise and fall of the chest. ABDOMEN: Soft, nontender, nondistended with normoactive bowel sounds EXTREMETIES: No clubbing, cyanosis or edema. The patient has a left great toe amputation. 2+ peripheral pulses bilaterally. NEURO: Patient is initially sleeping. Awake, alert and oriented 3. Cranial nerves are grossly intact. Results Laboratory Results: 02/14/17 06:19 02/14/17 06:19 02/14/17 02/14/17 06:19 06:19 WBC 8.6 RBC 3.64 L Hgb 10.9 L Hct 32.9 L MCV 91 MCH 30.1 MCHC 33.2 RDW 15.5 H Plt Count 252 Seg Neutrophils % 61.2 Lymphocytes % 25.3 Monocytes % 8.6 Eosinophils % 3.7 Basophils % 1.2 Absolute Neutrophils 5.2 Absolute Lymphocytes 2.2 Absolute Monocytes 0.7 Absolute Eosinophils 0.3 Absolute Basophils 0.1 Sodium 136.8 L Potassium 3.9 Chloride 101 Carbon Dioxide 30 Anion Gap 6 BUN 11 Creatinine 0.59 Est GFR ( Amer) > 60 Est GFR (Non-Af Amer) > 60 Glucose 229 H Calcium 9.0 02/08/17 13:15 Blood Blood Culture - Final NO GROWTH IN 5 DAYS 02/08/17 02/08/1702/08/17 13:15 13:15 18:20 Creatine Kinase 287 H 220 H Troponin I < 0.012 02/08/17 02/09/17 02/09/17 18:20 00:15 00:15 Creatine Kinase 179 H Troponin I < 0.012 < 0.012 Impressions: Femur X-Ray 02/08/17 08:20 IMPRESSION: Nondisplaced left intratrochanteric hip fracture. Chest X-Ray 02/08/17 08:21 IMPRESSION: NO ACUTE RADIOGRAPHIC FINDING IN THE CHEST. Fluoroscopy 02/09/17 00:00 IMPRESSION: Please see combined report for performance of procedure and radiologic supervision and interpretation. Hip X-Ray 02/09/17 00:00 IMPRESSION: IMAGE(S) OBTAINED DURING PROCEDURE. Assessment & Plan - Diagnosis (1) Intertrochanteric fracture of left femur Qualifiers: Encounter type: initial encounter Fracture type: closed Is this a current diagnosis for this admission?: Yes Plan: Management as per orthopedic surgery. Status post pinning. Continue PT and OT. Will need to place and rehab. (2) UTI (urinary tract infection) Qualifiers: Urinary tract infection type: acute cystitis Hematuria presence: with hematuria Qualified Code(s): N30.01 - Acute cystitis with hematuria Is this a current diagnosis for this admission?: Yes Plan: Gram-negative rods consistent with Serratia were found in the urine. This organism is susceptible to Rocephin. Continue current management. (3) Diabetes type 2, uncontrolled Qualifiers: Diabetes mellitus complication status: with unspecified complications Diabetes mellitus intermediate card tender insulin use: unspecified jail insulin use status Qualified Code(s): E11.8 - Type 2 diabetes mellitus with unspecified complications; E11.65 - Type 2 diabetes mellitus with hyperglycemia Is this a current diagnosis for this admission?: Yes Plan: Continue sliding scale insulin. Hemoglobin A1c is greater than 14. Patient was placed on Lantus, mealtime insulin sliding scale. Based on her numbers, I am going to increase her Lantus from 10-20. I will leave her mealtime insulin sliding scale alone for now. Reassess tomorrow. (4) Alcohol abuse Is this a current diagnosis for this admission?: Yes Plan: Cessation is recommended. (5) Anemia Qualifiers: Anemia type: unspecified type Qualified Code(s): D64.9 - Anemia, unspecified Is this a current diagnosis for this admission?: Yes Plan: Stable. The patient has had a slight postop drop. We will continue to monitor. For now it is not enough to deem this acute blood loss anemia. (6) Anxiety Is this a current diagnosis for this admission?: Yes Plan: Continue nightly Valium. (7) COPD (chronic obstructive pulmonary disease) Qualifiers: COPD type: unspecified COPD Qualified Code(s): J44.9 - Chronic obstructive pulmonary disease, unspecified Is this a current diagnosis for this admission?: Yes Plan: Without acute exacerbation. Continue various inhalers and nebulizers. (8) Hyponatremia Plan: Stable and likely due to acute infection from uti. (9) Delirium Plan: The patient had what sounds to be an episode of delirium overnight. Continue the sitter for now. The morphine was decreased which I concur with. Her Valium is only being given at night before bed. This may of course be secondary to postop delirium or even sundowning with worsening of undiagnosed underlying dementia. Again we will continue to monitor. - Time Time Spent with patient: Less than 15 minutes Within: within 24 hours, when bed available
--- NOTE | 2017-02-14 18:52 | PDOC PROGRESS REPORT ---
Subjective Subjective:: Patient seen and evaluated. Lying in bed comfortably. Physical Exam Vital Signs: Temp Pulse Resp BP Pulse Ox 98.5 F 82 12 106/53 L 99 02/13/17 12:13 02/14/17 14:00 02/13/17 12:13 02/13/17 12:13 02/13/17 12:13 Intake & Output 02/13/17 02/14/17 02/15/17 06:59 06:59 06:59 Intake Total 720 840 Output Total 4 Balance 720 836 Weight 73.3 kg 73.1 kg Musculoskeletal exam: PRESENT: other - Left hip: Dressing clean/dry/intact no erythema or drainage. Minimal thigh swelling. Intact plantar flexion/ dorsiflexion. No calf tenderness. Results Laboratory Results: 02/14/17 06:19 02/14/17 06:19 02/14/17 02/14/17 06:19 06:19 WBC 8.6 RBC 3.64 L Hgb 10.9 L Hct 32.9 L MCV 91 MCH 30.1 MCHC 33.2 RDW 15.5 H Plt Count 252 Seg Neutrophils % 61.2 Lymphocytes % 25.3 Monocytes % 8.6 Eosinophils % 3.7 Basophils % 1.2 Absolute Neutrophils 5.2 Absolute Lymphocytes 2.2 Absolute Monocytes 0.7 Absolute Eosinophils 0.3 Absolute Basophils 0.1 Sodium 136.8 L Potassium 3.9 Chloride 101 Carbon Dioxide 30 Anion Gap 6 BUN 11 Creatinine 0.59 Est GFR ( Amer) > 60 Est GFR (Non-Af Amer) > 60 Glucose 229 H Calcium 9.0 02/08/17 13:15 Blood Blood Culture - Final NO GROWTH IN 5 DAYS 02/08/17 02/08/17 02/08/17 13:15 13:15 18:20 Creatine Kinase 287 H 220 H Troponin I < 0.012 02/08/17 02/09/17 02/09/17 18:20 00:15 00:15 Creatine Kinase 179 H Troponin I < 0.012 < 0.012 Impressions: Femur X-Ray 02/08/17 08:20 IMPRESSION: Nondisplaced left intratrochanteric hip fracture. Chest X-Ray 02/08/17 08:21 IMPRESSION: NO ACUTE RADIOGRAPHIC FINDING IN THE CHEST. Fluoroscopy 02/09/17 00:00 IMPRESSION: Please see combined report for performance of procedure and radiologic supervision and interpretation. Hip X-Ray 02/09/17 00:00 IMPRESSION: IMAGE(S) OBTAINED DURING PROCEDURE. Assessment & Plan - Diagnosis (1) Intertrochanteric fracture of left femur Qualifiers: Encounter type: initial encounter Fracture type: closed Is this a current diagnosis for this admission?: Yes Plan: Status post IM nail left hip: #1 physical therapy weightbearing as tolerated #2 pain control #3 Xarelto for DVT prophylaxis #4 discharge planning to [facility] facility when bed available
[2017-02-14] MEDS ORDERED: INSULIN GLARGINE,HUM.REC.ANLOG 300 UNIT/3 ML INSULN.PEN SUBCUT SCH (22:00)
[2017-02-14] MEDS: RIVAROXABAN 10 MG TABLET PO SCH (22:05)
[2017-02-14] MEDS: DIAZEPAM 5 MG TABLET PO SCH (22:05)
[2017-02-15] MEDS: MORPHINE SULFATE 10 MG/ML INJ IV PRN (00:43)
[2017-02-15] MEDS: AMITRIPTYLINE HCL 25 MG TABLET PO SCH ×2 (05:37→16:14)
[2017-02-15] MEDS: INSULIN LISPRO 100 UNIT/ML 3 ML VIAL SUBCUT PRN ×2 (06:18→12:56)
[2017-02-15] MEDS ORDERED: HYDROXYZINE PAMOATE 25 MG CAPSULE PO PRN (08:25)
[2017-02-15] MEDS: METFORMIN HCL 500 MG TABLET PO SCH ×2 (12:18→18:41)
[2017-02-15] MEDS: THIAMINE HCL 100 MG TABLET PO SCH (12:19)
[2017-02-15] MEDS: ATORVASTATIN CALCIUM 10 MG TABLET PO SCH (12:19)
[2017-02-15] MEDS: FOLIC ACID 1 MG TABLET PO SCH (12:20)
[2017-02-15] MEDS: CEFTRIAXONE 1 GM/D5W RTU 1 GM/50 ML RTUPB IV SCH (12:20)
[2017-02-15] MEDS: CYANOCOBALAMIN (VITAMIN B-12) 1,000 MCG TABLET PO SCH (12:20)
[2017-02-15] MEDS: FERROUS SULFATE 325 MG TABLET PO SCH (12:21)
[2017-02-15] MEDS: DULOXETINE HCL 30 MG CAPSULE.DR PO SCH (12:21)
[2017-02-15] MEDS: FAMOTIDINE 20 MG TABLET PO SCH (12:21)
[2017-02-15] MEDS: NICOTINE 21 MG/24 HR PATCH.TD24 TD SCH (12:22)
[2017-02-15] MEDS: MULTIVITAMIN TABLET PO SCH (12:22)
[2017-02-15] MEDS: INSULIN REG, HUMAN 100 UNIT/ML 3 ML VIAL (PYX) SUBCUT SCH ×2 (12:24→18:42)
[2017-02-15] MEDS: PYRIDOXINE HCL 50 MG TABLET PO SCH (12:30)
[2017-02-15] MEDS: RAMIPRIL 10 MG CAPSULE PO SCH (12:31)
--- NOTE | 2017-02-15 12:42 | PDOC DISCHARGE SUMMARY ---
General - Admit/Disc Date/PCP Admission Date/Primary Care Provider: 02/08/17 12:10 BARBARA FRANZ MD Discharge Date: 02/15/17 - Discharge Diagnosis (1) Intertrochanteric fracture of left femur Is this a current diagnosis for this admission?: Yes Summary: Status post pinning. Follow-up with Ortho as directed. Continue PT. (2) UTI (urinary tract infection) Is this a current diagnosis for this admission?: Yes Summary: Status post 7 days of Rocephin. (3) Diabetes type 2, uncontrolled Is this a current diagnosis for this admission?: Yes Summary: Continue current Lantus and mealtime insulin. (4) Alcohol abuse Is this a current diagnosis for this admission?: Yes Summary: I think this is reflected in the patient's baseline mental state. (5) Anemia Is this a current diagnosis for this admission?: Yes (6) Anxiety Is this a current diagnosis for this admission?: Yes Summary: Continue nightly Valium. (7) COPD (chronic obstructive pulmonary disease) Is this a current diagnosis for this admission?: Yes Summary: Without exacerbation. Continue routine nebulizer treatments and various inhalers. (8) Hyponatremia Summary: Near normal. Patient is down to 135. (9) Delirium Summary: Resolved. - Additional Information Resuscitation Status: Full Code Home Medications: Amitriptyline HCl [Elavil 25 mg Tablet] 25 mg PO Q8 02/08/17 Atorvastatin Calcium [Lipitor 10 mg Tablet] 10 mg PO DAILY 02/08/17 Cholecalciferol (Vitamin D3) [Vitamin D3] 5,000 unit PO DAILY 02/08/17 Cyanocobalamin (Vitamin B-12) [Vitamin B-12 1000 mcg Tablet] 1,000 mcg PO DAILY 02/08/17 Diazepam [Valium 5 mg Tablet] 5 mg PO QHS 02/08/17 Duloxetine HCl [Cymbalta] 60 mg PO DAILY 02/08/17 Ferrous Sulfate [Feosol 325 mg Tablet] 325 mg PO DAILY 02/08/17 Hydroxyzine HCl [Atarax 25 mg Tablet] 25 mg PO HSP PRN 02/08/17 Metformin HCl [Glucophage] 1,000 mg PO BIDBS 02/08/17 Pramipexole Di-HCl [Mirapex ER] 3 mg PO QHS 02/08/17 Pyridoxine HCl [Vitamin B-6] 100 mg PO DAILY 02/08/17 Ramipril [Altace 10 mg Capsule] 10 mg PO DAILY 02/08/17 Thiamine HCl [Thiamine 100 mg Tablet] 100 mg PO DAILY 02/08/17 History of Present Illness History of Present Illness: VIVEK MAGUIRE is a 71 year old female who was admitted to the service with left hip fracture and UTI. Please see the admission HPI below as performed by the admitting physician. Admission Date/PCP: 02/08/17 11:59 BARBARA FRANZ MD History of Present Illness: VIVEK MAGUIRE is a 71 year old female with past medical history of hypertension, insulin-dependent diabetes mellitus, COPD, depression, peripheral vascular disease, restless leg syndrome, hyperlipidemia who presents after a mechanical fall. Patient reports that she fell on Wednesday at about 1330. And was on the ground for approximately 12 hours before being able to crawl to the phone and activated EMS. Patient reports she followed proximally 3 times in the past several days before this. She reports prior to her fall she had felt fatigued but she denied any chest pain, double or blurred vision, or neurologic symptoms. Patient reported the only thing that has been bothering her recently is that she has been having some intermittent bright breakthrough vaginal bleeding. Patient reports that she had a scheduled appointment with her primary care physician this week to discuss endometrial biopsy for this condition. Patient is unaware of her medications at this time and they are currently undergoing reconciliation by the pharmacy not available to me at this time due to the emergent nature of this. Hospital Course Hospital Course: The patient was admitted to the hospital. She was seen by orthopedic surgery. She underwent pinning of her left hip. She tolerated the procedure well. While she was here we discovered that she also had a urinary tract infection. She received 7 days of Rocephin to which the organism growing was susceptible. The patient was confused whenever she received pain medications. This was on top of what is baseline behavior. She had a sitter with her for most of the weekend. She no longer has a sitter today. She is stable and ready for discharge. Physical Exam Vital Signs: Temp Pulse Resp BP Pulse Ox 97.8 F 81 12 124/61 98 02/14/17 15:55 02/15/17 07:00 02/14/17 15:55 02/14/17 15:55 02/14/17 15:55 Intake & Output 02/14/17 02/15/17 02/16/17 06:59 06:59 06:59 Intake Total 840 1591 Output Total 4 200 Balance 836 1391 Weight 73.1 kg 73.1 kg GENERAL: This is a well-developed and nourished appearing white female resting in bed currently in no acute distress sleeping. Upon awakening, she is initially disoriented. HEART: Regular rate and rhythm. No murmurs, rubs or gallops. LUNGS: Clear to auscultation with equal rise and fall of the chest. ABDOMEN: Soft, nontender, nondistended with normoactive bowel sounds EXTREMETIES: No clubbing, cyanosis or edema. The patient has a left great toe amputation. 2+ peripheral pulses bilaterally. NEURO: Patient is initially sleeping. Awake, alert and oriented 2. Cranial nerves are grossly intact. Results Laboratory Results: 02/14/17 06:19 02/14/17 06:19 02/08/17 02/08/17 02/08/17 13:15 13:15 18:20 Creatine Kinase 287 H 220 H Troponin I < 0.012 02/08/17 02/09/17 02/09/17 18:20 00:15 00:15 Creatine Kinase 179 H Troponin I < 0.012 < 0.012 Impressions: Femur X-Ray 02/08/17 08:20 IMPRESSION: Nondisplaced left intratrochanteric hip fracture. Chest X-Ray 02/08/17 08:21 IMPRESSION: NO ACUTE RADIOGRAPHIC FINDING IN THE CHEST. Fluoroscopy 02/09/17 00:00 IMPRESSION: Please see combined report for performance of procedure and radiologic supervision and interpretation. Hip X-Ray 02/09/17 00:00 IMPRESSION: IMAGE(S) OBTAINED DURING PROCEDURE. Qualifiers PATEINT BEING DISCHARGED WITH ANY OF THE FOLLOWING DIAGNOSIS?: No Plan Time Spent: Less than 30 Minutes
== END 2017-02-15 20:47 | DRG 481 ==
LOC: ER 08:11 → EH 11:59 → UNDOADMIN 11:59 → EH 12:10 → 4S 14:11
PROVIDERS: ADMIT Family Medicine; ATTEND Family Medicine
PROC: 0QS734Z Reposition Left Upper Femur with Internal Fixation Device, Percutaneous Approach (ICD-10-PCS; principal; 2017-02-09 15:30)
DX: S72.142A Displaced intertrochanteric fracture of left femur, initial encounter for closed fracture (principal); E87.1 Hypo-osmolality and hyponatremia; N30.01 Acute cystitis with hematuria; E11.65 Type 2 diabetes mellitus with hyperglycemia; F10.10 Alcohol abuse, uncomplicated; D64.9 Anemia, unspecified; J44.9 Chronic obstructive pulmonary disease, unspecified; R41.0 Disorientation, unspecified; R94.31 Abnormal electrocardiogram [ECG] [EKG]; I10 Essential (primary) hypertension; B35.3 Tinea pedis; I73.9 Peripheral vascular disease, unspecified; G25.81 Restless legs syndrome; E78.5 Hyperlipidemia, unspecified; F41.9 Anxiety disorder, unspecified; F32.9 Major depressive disorder, single episode, unspecified; Z79.899 Other long term (current) drug therapy; Z79.84 Long term (current) use of oral hypoglycemic drugs; Z88.0 Allergy status to penicillin; Z88.8 Allergy status to other drugs, medicaments and biological substances; F17.210 Nicotine dependence, cigarettes, uncomplicated; W19.XXXA Unspecified fall, initial encounter; Y93.9 Activity, unspecified; Y92.019 Unspecified place in single-family (private) house as the place of occurrence of the external cause; Y99.9 Unspecified external cause status
CPT/HCPCS: 01230; 36415; 71010; 80048; 80053; 80307; 81001; 82550; 82962; 83036; 83735; 84484; 85025; 85027; 85610; 86850; 86900; 86901; 87040; 87086; 87088; 87186; 93005; 93010; 93306; 94799; 96361; 96374; 96375; 99285; C1713; G8978-GP; G8979-GP; G8987-GO; G8988-GO; J0696; J1644; J1815; J2250; J2270; J2405; J2704; J3010; J3490; J7030

== ENCOUNTER 2017-04-21 09:17 | Inpatient (IN) | payer MEDICARE, BC, OTHER ==
[2017-04-21] MEDS ORDERED: NORMAL SALINE 1000 ML 1,000 ML IV ONE (09:51)
--- NOTE | 2017-04-21 09:53 | ER Document Report ---
ED Medical Screen (RME) - General Chief Complaint: Cough Stated Complaint: COLD Time Seen by Provider: 04/21/17 09:50 Notes: Patient is a poor historian who states for approximate 1 month she has had cough cold and a rash on both of her lower extremities. TRAVEL OUTSIDE OF THE [place] IN LAST 30 DAYS: No - Related Data Allergies/Adverse Reactions: valsartan [From Diovan] Allergy (Unknown, Verified 02/08/17 08:51) Penicillins Allergy (Verified 02/08/17 08:51) exenatide [From Byetta] Adverse Reaction (Severe, Verified 02/08/17 14:52) Migraine Past Medical History - Social History Chew tobacco use (# tins/day): No Frequency of alcohol use: Occasional Drug Abuse: None - Past Medical History Cardiac Medical History: Reports: Hx Hypertension Pulmonary Medical History: Reports: Hx Asthma, Hx COPD Endocrine Medical History: Reports: Hx Diabetes Mellitus Type 1, Hx Diabetes Mellitus Type 2 Renal/ Medical History: Denies: Hx Peritoneal Dialysis Psychiatric Medical History: Reports: Hx Depression Past Surgical History: Reports: Hx Adenoidectomy, Hx Orthopedic Surgery, Hx Tonsillectomy, Other - Cataract - Immunizations Hx Diphtheria, Pertussis, Tetanus Vaccination: Yes History of Influenza Vaccine for 02/2017 - 07/2017 Season: No Physical Exam - Vital signs Vitals: Temp Pulse Resp BP Pulse Ox 99.2 F 98 18 174/86 H 90 L 04/21/17 09:22 04/21/17 09:22 04/21/17 09:22 04/21/17 09:22 04/21/17 09:22 Course - Vital Signs Vital signs: Temp Pulse Resp BP Pulse Ox 99.2 F 98 18 174/86 H 90 L 04/21/17 09:22 04/21/17 09:22 04/21/17 09:22 04/21/17 09:22 04/21/17 09:22
[2017-04-21 10:35] LABS: VENOUS BLOOD HCO3 34.5 mmol/L (20-32); VENOUS BLOOD PCO2 62.1 mmHg (35-63); VENOUS BLOOD PH 7.36 (7.30-7.42)
[2017-04-21 10:38] LABS: ABSOLUTE BASOPHILS # (AUTO) 0.1 10^3/uL (0.0-0.2); ABSOLUTE EOSINOPHILS # (AUTO) 0.4 10^3/uL (0.0-0.6); ABSOLUTE LYMPHOCYTES (AUTO) 2.1 10^3/uL (0.5-4.7); ABSOLUTE MONOCYTES (AUTO) 0.7 10^3/uL (0.1-1.4); ABSOLUTE NEUT (AUTO) 6.6 10^3/uL (1.7-8.2); BASOPHILS % (AUTO) 1.1 % (0-2); EOSINOPHILS % (AUTO) 3.9 % (0-6); HEMOGLOBIN 12.8 g/dL (12.0-15.5); HGB HCT DIFFERENCE -1.6; LYMPHOCYTES % (AUTO) 21.2 % (13-45); MEAN CORPUSCULAR HEMOGLOBIN 28.6 pg (27.0-33.4); MEAN CORPUSCULAR VOLUME 89 fl (80-97); MONOCYTES % (AUTO) 7.3 % (3-13); RED BLOOD COUNT 4.48 10^6/uL (3.72-5.28); RED CELL DISTRIBUTION WIDTH 16.8 % (11.5-14.0); SEGMENTED NEUTROPHILS % (AUTO) 66.5 % (42-78); WHITE BLOOD COUNT 9.9 10^3/uL (4.0-10.5)
[2017-04-21] MEDS ORDERED: IPRATROPIUM/ALBUTEROL 0.5-2.5 MG/3 ML AMPUL NEB ONE ×2 (10:42→15:30)
[2017-04-21] MEDS ORDERED: METHYLPREDNISOLONE INJ 125 MG/2 ML SDV IV ONE (10:42)
--- NOTE | 2017-04-21 10:43 | ER Document Report ---
ED Respiratory Problem - General Chief Complaint: Cough Stated Complaint: COLD Time Seen by Provider: 04/21/17 09:50 Notes: Patient is a 71-year-old female presents emergency department with a chief complaint of a nonproductive cough and shortness of breath for 2 weeks. Patient states that she does have a history of COPD and asthma and is a current smoker. Patient states that she has had a cold on and off for the past month with no improvement in her symptoms. she states that she follows with a primary care provider Dr. King hendricks in [place]. Otherwise patient denies any fevers, chills, chest pain, sore throat, nausea, vomiting, abdominal pain. Past medical history significant for diabetes history of high blood pressure TRAVEL OUTSIDE OF THE [place] IN LAST 30 DAYS: No - Related Data Allergies/Adverse Reactions: valsartan [From Katherin] Allergy (Unknown, Verified 02/08/17 08:51) Penicillins Allergy (Verified 02/08/17 08:51) exenatide [From Shweta] Adverse Reaction (Severe, Verified 02/08/17 14:52) Migraine Home Medications: Current Home Medications Atorvastatin Calcium [Lipitor 10 mg Tablet] 10 mg PO QHS 04/21/17 [History] Cholecalciferol (Vitamin D3) [Vitamin D3 5000 unit Capsule] 5,000 units PO DAILY 04/21/17 [History] Diazepam [Valium 5 mg Tablet] 5 mg PO QHS 04/21/17 [History] Duloxetine HCl [Cymbalta] 60 mg PO DAILY 04/21/17 [History] Ferrous Sulfate [Iron] 325 mg PO DAILY 04/21/17 [History] Hydroxyzine HCl [Atarax 25 mg Tablet] 25 mg PO HSP PRN 04/21/17 [History] Insulin Glargine,Hum.rec.anlog [Lantus Solostar] 40 units SQ Q12 04/21/17 [ History] Metformin HCl [Glucophage] 1,000 mg PO BID 04/21/17 [History] Rivaroxaban [Xarelto 10 mg Tablet] 10 mg PO QHS 04/21/17 [History] Past Medical History - Social History Smoking Status: Current Every Day Smoker Chew tobacco use (# tins/day): No Frequency of alcohol use: Occasional Drug Abuse: None Family History: CAD, Malignancy - Throat cancer, Other - Alzheimer's Patient has suicidal ideation: No Patient has homicidal ideation: No - Past Medical History Cardiac Medical History: Reports: Hx Hypertension Pulmonary Medical History: Reports: Hx Asthma, Hx COPD Endocrine Medical History: Reports: Hx Diabetes Mellitus Type 1, Hx Diabetes Mellitus Type 2 Renal/ Medical History: Denies: Hx Peritoneal Dialysis Psychiatric Medical History: Reports: Hx Depression Past Surgical History: Reports: Hx Adenoidectomy, Hx Orthopedic Surgery, Hx Tonsillectomy, Other - Cataract - Immunizations Hx Diphtheria, Pertussis, Tetanus Vaccination: Yes Hx Pneumococcal Vaccination: 05/24/11 Review of Systems - Review of Systems Constitutional: No symptoms reported EENT: See HPI Cardiovascular: See HPI Respiratory: See HPI Gastrointestinal: No symptoms reported -: Yes All other systems reviewed and negative Physical Exam - Vital signs Vitals: Temp Pulse Resp BP Pulse Ox 99.2 F 98 18 174/86 H 90 L 04/21/17 09:22 04/21/17 09:22 04/21/17 09:22 04/21/17 09:22 04/21/17 09:22 - Notes Notes: PHYSICAL EXAM GENERAL: Alert, interacts well. HEAD: Normocephalic, atraumatic. EYES: Pupils equal, round, and reactive to light. Extraocular movements intact. ENT: Oral mucosa moist, tongue midline. NECK: Full range of motion. Supple. Trachea midline. LUNGS: Diffuse rhonchi without rales. No respiratory distress. HEART: Regular rate and rhythm. No murmurs, gallops, or rubs. ABDOMEN: Soft, nondistended, nontender. No guarding, rebound, or rigidity.. Bowel sounds present in all 4 quadrants. EXTREMITIES: Moves all 4 extremities spontaneously. No edema, radial and dorsalis pedis pulses 2/4 bilaterally. No cyanosis. NEUROLOGICAL: Alert and oriented x4. Normal speech. PSYCH: Normal affect, normal mood. SKIN: Warm, dry, normal turgor. No rashes or lesions noted. Course - Re-evaluation Re-evalutation: 04/21/17 13:40 Patient is a 71-year-old female who is hemodynamically stable, no acute distress and afebrile. Patient is satting approximately 90% on room air at rest. Patient has received multiple breathing treatments and steroids in the department with clinical improvement in her breathing. Patient ambulated in the department when she desats down to 82%. Otherwise no evidence of leukocytosis or anemia. No evidence of pneumonia on chest x-ray. Patient's chemistry stable without any evidence of acute renal failure or hepatic injury. Given that patient is still satting in the low 80s with ambulation after treatments in the department, she does meet inpatient criteria for COPD exacerbation. Patient has been accepted by Dr. Alberts for admission. Patient is agreeable with plan - Vital Signs Vital signs: Temp Pulse Resp BP Pulse Ox 99.2 F 98 18 162/85 H 96 04/21/17 09:22 04/21/17 09:22 04/21/17 12:00 04/21/17 11:02 04/21/17 12:00 - Laboratory Result Diagrams: 04/21/17 10:12 04/21/17 10:12 Laboratory results interpreted by me: 04/21/17 04/21/17 04/21/17 10:12 10:12 10:12 RDW 16.8 H VBG HCO3 34.5 H Sodium 135.6 L Chloride 93 L Carbon Dioxide 31 H Est GFR (Non-Af Amer) 57 L Glucose 544 H* Direct Bilirubin 0.5 H Alkaline Phosphatase 182 H Ammonia 04/21/17 10:55 RDW VBG HCO3 Sodium Chloride Carbon Dioxide Est GFR (Non-Af Amer) Glucose Direct Bilirubin Alkaline Phosphatase Ammonia < 8.7 L - Diagnostic Test Radiology reviewed: Image reviewed, Reports reviewed - EKG Interpretation by Me EKG shows normal: Sinus rhythm Rate: Normal Rhythm: NSR When compared to previous EKG there are: Previous EKG unavailable Discharge - Discharge Clinical Impression: COPD (chronic obstructive pulmonary disease) Qualifiers: COPD type: COPD with acute exacerbation Qualified Code(s): J44.1 - Chronic obstructive pulmonary disease with (acute) exacerbation Condition: Stable Disposition: ADMITTED INPATIENT Admitting Provider: Suzi Alberts Unit Admitted: Telemetry Referrals: BARBARA FRANZ MD [Primary Care Provider] - Follow up as needed
[2017-04-21 11:01] LABS: ALANINE AMINOTRANSFERASE 22 U/L (9-52); ALBUMIN 3.7 g/dL (3.5-5.0); ALKALINE PHOSPHATASE 182 U/L (38-126); ANION GAP 12 (5-19); ASPARTATE AMINO TRANSFERASE 20 U/L (14-36); BILIRUBIN,DIRECT 0.5 mg/dL (0.0-0.4); BILIRUBIN,TOTAL 0.6 mg/dL (0.2-1.3); BLOOD UREA NITROGEN 15 mg/dL (7-20); CARBON DIOXIDE 31 mmol/L (22-30); CHLORIDE 93 mmol/L (98-107); CREATININE RESULT 0.96 mg/dL (0.52-1.25); SODIUM 135.6 mmol/L (137-145); TOTAL PROTEIN 7.6 g/dL (6.3-8.2)
[2017-04-21] MEDS: ALBUTEROL SULFATE 0.083% NEB 2.5 MG/3 ML AMPUL NEB SCH ×2 (11:10→12:01)
[2017-04-21 11:11] LABS: CREATINE KINASE 61 U/L (30-135)
[2017-04-21 11:12] LABS: GLUCOSE 544 mg/dL (75-110)
[2017-04-21 11:17] LABS: ALCOHOL < 10 mg/dL (NONE DETECTED)
[2017-04-21] MEDS ORDERED: INSULIN REG, HUMAN 100 UNIT/ML 3 ML VIAL (PYX) SUBCUT ONE (11:17)
[2017-04-21 11:54] LABS: CREATINE KINASE MB 2.09 ng/mL (<4.55); TROPONIN I 0.015 ng/mL
--- NOTE | 2017-04-21 12:18 | RADIOLOGY REPORT (SQ) ---
EXAM DESCRIPTION: CHEST PA/LAT COMPLETED DATE/TIME: 04/21/2017 11:53 am REASON FOR STUDY: cough/congestion COMPARISON: 02/08/2017 EXAM PARAMETERS: NUMBER OF VIEWS: two views TECHNIQUE: Digital Frontal and Lateral radiographic views of the chest acquired. RADIATION DOSE: NA LIMITATIONS: none FINDINGS: LUNGS AND PLEURA: The lungs are hyperexpanded. Chronic interstitial changes are present. There is no infiltrate or effusion. On the lateral view there is the suggestion of a 2 cm mass ante riorly overlying the heart. No mass is seen on PA view, however. MEDIASTINUM AND HILAR STRUCTURES: No masses or contour abnormalities. HEART AND VASCULAR STRUCTURES: Heart normal size. No evidence for failure. BONES: No acute findings. HARDWARE: None in the chest. OTHER: No other significant finding. IMPRESSION: 1. Chronic lung changes with no acute cardiopulmonary disease. 2. Questionable 2 cm mass seen anteriorly on the lateral view. Consider CT for further evaluation. TECHNICAL DOCUMENTATION: JOB ID: [id number] [employer]- All Rights Reserved
--- NOTE | 2017-04-21 13:20 | EKG REPORT ---
SEVERITY:- ABNORMAL ECG - SINUS RHYTHM ATRIAL PREMATURE COMPLEX BORDERLINE R WAVE PROGRESSION, ANTERIOR LEADS , CONSIDER OLD ANTERIOR HI : Confirmed by: Isam Cohen MD 21-Apr-2017 13:19:26
[2017-04-21] MEDS ORDERED: ENOXAPARIN SODIUM INJ 40 MG/0.4 ML DISP.SYRIN SUBCUT ONE (15:00)
[2017-04-21 15:19] LABS: HEMOGLOBIN 12.3 g/dL (12.0-15.5); HGB HCT DIFFERENCE -1.1; MEAN CORPUSCULAR HEMOGLOBIN 28.4 pg (27.0-33.4); MEAN CORPUSCULAR HGB CONC 32.4 g/dL (32.0-36.0); MEAN CORPUSCULAR VOLUME 88 fl (80-97); RED BLOOD COUNT 4.34 10^6/uL (3.72-5.28); RED CELL DISTRIBUTION WIDTH 16.5 % (11.5-14.0); WHITE BLOOD COUNT 7.9 10^3/uL (4.0-10.5)
[2017-04-21 15:24] LABS: PROTHROMBIN TIME 13.1 SEC (11.4-15.4)
[2017-04-21 15:25] LABS: PARTIAL THROMBOPLASTIN TIME 30.7 SEC (23.5-35.8)
[2017-04-21 15:37] LABS: CREATININE RESULT 0.81 mg/dL (0.52-1.25)
[2017-04-21] MEDS ORDERED: (PENDING PHARMACY ID) (Hydroxyzine Hcl [Atarax 25 Mg Tablet] 25 MG) PO PRN (18:14)
[2017-04-21] MEDS ORDERED: LORAZEPAM INJ 2 MG/1 ML VIAL IV PRN (18:23)
--- NOTE | 2017-04-21 18:25 | PDOC H&P ---
History of Present Illness Admission Date/PCP: 04/21/17 15:19 BARBARA FRANZ MD This this is a 71-year-old woman with long history of tobacco use disorder, long history of alcohol use disorder who states that about a month ago she got a cold and it just lingered and eventually got worse. A few weeks ago she developed a cough and has started to expectorate now. She is not had fever that she is aware. He has been very fatigued. He has been getting increasingly short of breath. She knew that she was getting worse and so came to the ER today. In the ER she was found to have an exacerbation of her chronic COPD and acute hypoxemic respiratory failure. She does not use any oxygen at home and with ambulation her O2 sats today in the ER dropped to 75%. He is being admitted to the hospitalist service for COPD exacerbation and acute hypoxemic respiratory failure. History of Present Illness: VIVEK MAGUIRE is a 71 year old female Past Medical History Past Medical History: Insomnia Cardiac Medical History: Reports: Hypertension Cardiac History Note: Dyslipidemia Pulmonary Medical History: Reports: Asthma, Chronic Obstructive Pulmonary Disease (COPD) Endocrine Medical History: Reports: Diabetes Mellitus Type 2 Psychiatric Medical History: Reports: Alcohol Dependency, Depression Hematology: Denies: Bleeding Tendencies Past Surgical History Past Surgical History: Reports: Adenoidectomy, Orthopedic Surgery - Patient has had both left and right hip fracture repairs secondary to falls, Tonsillectomy, Other - Cataract Social History Information Source: Patient, Emergency Med Personnel 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 She does not have children. She has a best friend who she names as her healthcare surrogate. - Advance Directive Resuscitation Status: Do Not Resuscitate Family History Family History: CAD, Malignancy - Throat cancer, Other - Alzheimer's Family History: Her mother in her 90s secondary to an OH, patient's father had type 2 diabetes and with "throat cancer", brother at the age of 68 with an OH , patient has no children. Parental Family History Reviewed: Yes Children Family History Reviewed: NA Sibling(s) Family History Reviewed.: Yes Medication/Allergy Home Medications: Atorvastatin Calcium [Lipitor 10 mg Tablet] 10 mg PO QHS 04/21/17 Cholecalciferol (Vitamin D3) [Vitamin D3 5000 unit Capsule] 5,000 units PO DAILY 04/21/17 Diazepam [Valium 5 mg Tablet] 5 mg PO QHS 04/21/17 Duloxetine HCl [Cymbalta] 60 mg PO DAILY 04/21/17 Ferrous Sulfate [Iron] 325 mg PO DAILY 04/21/17 Hydroxyzine HCl [Atarax 25 mg Tablet] 25 mg PO HSP PRN 04/21/17 Insulin Glargine,Hum.rec.anlog [Lantus Solostar] 40 units SQ Q12 04/21/17 Metformin HCl [Glucophage] 1,000 mg PO BID 04/21/17 Rivaroxaban [Xarelto 10 mg Tablet] 10 mg PO QHS 04/21/17 Allergies/Adverse Reactions: valsartan [From Diovan] Allergy (Unknown, Verified 02/08/17 08:51) Penicillins Allergy (Verified 02/08/17 08:51) exenatide [From Byetta] Adverse Reaction (Severe, Verified 02/08/17 14:52) Migraine Review of Systems Constitutional: PRESENT: fatigue Eyes: ABSENT: visual disturbances Ears: ABSENT: hearing changes Nose, Mouth, and Throat: ABSENT: headache(s), sore throat Cardiovascular: PRESENT: dyspnea on exertion. ABSENT: chest pain, edema, palpitations Respiratory: PRESENT: cough, dyspnea, sputum. ABSENT: hemoptysis Gastrointestinal: ABSENT: abdominal pain, constipation, diarrhea, nausea, vomiting Genitourinary: PRESENT: other - Patient has had urinary incontinence for months to years she wears an adult diaper. ABSENT: dysuria Musculoskeletal: PRESENT: muscle weakness Integumentary: PRESENT: lesions, wounds - Patient has multiple abrasions and ecchymoses over the bilateral legs secondary to falls Neurological: PRESENT: frequent falls, weakness. ABSENT: confusion, dizziness, focal weakness, numbness Psychiatric: PRESENT: depression. ABSENT: anxiety Endocrine: ABSENT: cold intolerance, heat intolerance Hematologic/Lymphatic: PRESENT: easy bruising Physical Exam Vital Signs: Temp Pulse Resp BP Pulse Ox 99.2 F 98 18 174/91 H 94 04/21/17 09:22 04/21/17 09:22 04/21/17 17:01 04/21/17 17:01 04/21/17 17:01 General appearance: PRESENT: no acute distress, cooperative, disheveled, obese Head exam: PRESENT: atraumatic, normocephalic Eye exam: PRESENT: EOMI. ABSENT: conjunctival injection Ear exam: PRESENT: normal external ear exam. ABSENT: bleeding Mouth exam: PRESENT: moist Neck exam: ABSENT: lymphadenopathy Respiratory exam: PRESENT: decreased breath sounds, prolonged expiratory phas, unlabored, wheezes. ABSENT: accessory muscle use, rales, tachypnea Cardiovascular exam: PRESENT: RRR, systolic murmur GI/Abdominal exam: PRESENT: normal bowel sounds, soft. ABSENT: distended, guarding, mass, organolmegaly, rebound, tenderness Rectal exam: PRESENT: deferred Extremities exam: PRESENT: other - Trauma to the shins bilaterally secondary to knocking into things and falling. Musculoskeletal exam: PRESENT: ambulatory, tenderness - Over bilateral legs with acute wounds Neurological exam: PRESENT: alert, awake, oriented to person, oriented to place , oriented to time, oriented to situation Psychiatric exam: PRESENT: flat affect. ABSENT: anxious Skin exam: PRESENT: abrasion, dry, erythema Results Impressions: Chest X-Ray 04/21/17 09:51 IMPRESSION: 1. Chronic lung changes with no acute cardiopulmonary disease. 2. Questionable 2 cm mass seen anteriorly on the lateral view. Consider CT for further evaluation. Assessment & Plan - Diagnosis (1) Frequent falls Is this a current diagnosis for this admission?: Yes Plan: We will order physical therapy to assess need for acute rehab, this problem is likely related to her alcohol use (2) COPD (chronic obstructive pulmonary disease) Qualifiers: COPD type: COPD with acute exacerbation Qualified Code(s): J44.1 - Chronic obstructive pulmonary disease with (acute) exacerbation Is this a current diagnosis for this admission?: Yes Plan: We will continue with steroids hopefully with rapid taper secondary to diabetes , will place patient on doxycycline for COPD exacerbation, continue with duo nebs, will continue with O2 and wean as she tolerates. (3) Depression Is this a current diagnosis for this admission?: Yes Plan: Continue duloxetine (4) Acute respiratory failure with hypoxemia Is this a current diagnosis for this admission?: Yes Plan: Likely due to COPD exacerbation. Room air sat was 75% in the ER. Patient is on 2 L of oxygen by nasal cannula. As her COPD exacerbation improves will hope to wean her off of oxygen but she may need to be discharged home on O2. (5) Alcohol use disorder Is this a current diagnosis for this admission?: Yes Plan: Patient describes herself as an alcoholic. She has consumed alcohol daily for many years. She reports drinking a half a liter of some kind of whiskey daily. She also tells me that she has had shaking before when she does not have alcohol but she does not remember any seizures or other alcohol withdrawal syndrome. She has been hospitalized within the last few years for about a week secondary to need for hip fracture repair and as far she recalls did not go through alcohol withdrawal syndrome. Make Ativan available as needed. (6) Chronic insomnia Is this a current diagnosis for this admission?: Yes Plan: Patient uses Valium 5 mg nightly for her chronic insomnia, we will continue this medication. - Time Time Spent: Greater than 70 Minutes
[2017-04-21] MEDS ORDERED: HYDROXYZINE HCL 10 MG TABLET PO PRN (18:40)
[2017-04-21] MEDS: IPRATROPIUM/ALBUTEROL 0.5-2.5 MG/3 ML AMPUL NEB SCH (19:39)
[2017-04-21 21:02] LABS: ANION GAP 10 (5-19); BLOOD UREA NITROGEN 18 mg/dL (7-20); CALCIUM 8.5 mg/dL (8.4-10.2); CARBON DIOXIDE 29 mmol/L (22-30); CHLORIDE 91 mmol/L (98-107); CREATININE RESULT 1.07 mg/dL (0.52-1.25); POTASSIUM 5.9 mmol/L (3.6-5.0); SODIUM 130.3 mmol/L (137-145)
[2017-04-21 21:18] LABS: GLUCOSE 762 mg/dL (75-110)
[2017-04-21] MEDS: DOXYCYCLINE HYCLATE 100 MG TABLET PO SCH (21:21)
[2017-04-21] MEDS ORDERED: INSULIN REG, HUMAN 100 UNIT/ML 3 ML VIAL (PYX) IV ONE ×2 (21:30→22:44)
[2017-04-21] MEDS: INSULIN GLARGINE,HUM.REC.ANLOG 300 UNIT/3 ML INSULN.PEN SUBCUT SCH (21:56)
[2017-04-21] MEDS ORDERED: DIAZEPAM 5 MG TABLET PO SCH (22:00)
[2017-04-21] MEDS ORDERED: RIVAROXABAN 10 MG TABLET PO SCH (22:00)
[2017-04-21] MEDS ORDERED: ATORVASTATIN CALCIUM 10 MG TABLET PO SCH (22:00)
[2017-04-21] MEDS: INSULIN LISPRO 100 UNIT/ML 3 ML VIAL SUBCUT PRN (23:21)
[2017-04-22] MEDS: IPRATROPIUM/ALBUTEROL 0.5-2.5 MG/3 ML AMPUL NEB SCH ×2 (01:46→09:10)
[2017-04-22] MEDS: INSULIN LISPRO 100 UNIT/ML 3 ML VIAL SUBCUT PRN (06:53)
[2017-04-22 07:16] LABS: HEMATOCRIT 33.2 % (36.0-47.0); HEMOGLOBIN 10.7 g/dL (12.0-15.5); HGB HCT DIFFERENCE -1.1; MEAN CORPUSCULAR HEMOGLOBIN 27.7 pg (27.0-33.4); MEAN CORPUSCULAR HGB CONC 32.1 g/dL (32.0-36.0); MEAN CORPUSCULAR VOLUME 86 fl (80-97); RED BLOOD COUNT 3.85 10^6/uL (3.72-5.28); RED CELL DISTRIBUTION WIDTH 16.3 % (11.5-14.0); WHITE BLOOD COUNT 12.5 10^3/uL (4.0-10.5)
[2017-04-22 07:34] LABS: ANION GAP 9 (5-19); BLOOD UREA NITROGEN 21 mg/dL (7-20); CALCIUM 8.4 mg/dL (8.4-10.2); CARBON DIOXIDE 28 mmol/L (22-30); CHLORIDE 93 mmol/L (98-107); CREATININE RESULT 0.83 mg/dL (0.52-1.25); GLUCOSE 354 mg/dL (75-110)
[2017-04-22 07:51] LABS: POTASSIUM 4.4 mmol/L (3.6-5.0)
[2017-04-22 09:28] VITALS: BP 144/78
[2017-04-22] MEDS ORDERED: ENOXAPARIN SODIUM INJ 40 MG/0.4 ML DISP.SYRIN SUBCUT SCH (10:00)
[2017-04-22] MEDS ORDERED: DULOXETINE HCL 30 MG CAPSULE.DR PO SCH (10:00)
[2017-04-22] MEDS ORDERED: PREDNISONE 20 MG TABLET PO SCH (10:00)
[2017-04-22] MEDS ORDERED: CHOLECALCIFEROL (D3) 1,000 UNIT TABLET PO SCH (10:00)
[2017-04-22] MEDS: DOXYCYCLINE HYCLATE 100 MG TABLET PO SCH (11:02)
[2017-04-22] MEDS: INSULIN GLARGINE,HUM.REC.ANLOG 300 UNIT/3 ML INSULN.PEN SUBCUT SCH (11:02)
[2017-04-22] MEDS ORDERED: HYDROXYZINE PAMOATE 25 MG CAPSULE PO PRN (11:10)
--- NOTE | 2017-04-22 17:16 | PDOC DISCHARGE SUMMARY ---
General - Admit/Disc Date/PCP Admission Date/Primary Care Provider: 04/21/17 15:19 BARBARA FRANZ MD Discharge Date: 04/22/17 - Discharge Diagnosis (1) Frequent falls Is this a current diagnosis for this admission?: Yes Summary: Patient admits to frequent falls. 2 of these falls have caused hip fractures for which she is undergone repair. She uses a walker at home though I suspect that her chronic daily heavy alcohol use is contributing to these falls. She has multiple scrapes and abrasions over her bilateral shins. She is not interested in therapy. She is not interested in alcohol cessation. (2) COPD (chronic obstructive pulmonary disease) Is this a current diagnosis for this admission?: Yes Summary: Patient was admitted with a COPD exacerbation. She was treated with doxycycline steroids and duo nebs. She also had hypoxemia with a 75% room air sat. Today the patient was insistent upon leaving AMA. I did my best to discharge her safely. I discharged her with a 7 day course of doxycycline and a 5 day course of 20 mg of prednisone. I also discharged her with a new nebulizer machine and duo nebs to be used for wheezing and shortness of breath. Today the patient, after ambulation and while sitting on her bed, had a room air sat in the low mid 80s. She recovered up into the 90 range. I recommended home oxygen for discharge but she declined. I discussed with her the dangers of not using oxygen when it is indicated. She accepts the risks of not using oxygen. Also the patient is a heavy every day smoker and is unwilling to quit at this time. (3) Depression Is this a current diagnosis for this admission?: Yes Summary: Stable. She sees her PCP for this problem and will continue her antidepressant. (4) Acute respiratory failure with hypoxemia Is this a current diagnosis for this admission?: Yes (5) Alcohol use disorder Is this a current diagnosis for this admission?: Yes Summary: Patient and I discussed the possible complications of chronic heavy every day alcohol use. We talked about the possibility of nutritional deficiencies and dementia. He is unwilling to quit alcohol at this time or to cut back. She agrees to take vitamins and she agreed to folic acid, multivitamin, thiamine and she was discharged with these. She had no evidence of alcohol withdrawal during her 24-hour stay. (6) Chronic insomnia Is this a current diagnosis for this admission?: Yes Summary: Stable, she will continue her home Valium nightly. (7) Diabetes type 2, uncontrolled Is this a current diagnosis for this admission?: Yes Summary: Patient is treated for type 2 diabetes and she was discharged on her home medications. She became very hyperglycemic overnight secondary to steroids for her COPD exacerbation. CBGs were improved for discharge and she relays that she will monitor her glucose closely and report to her PCP if she cannot get it under control. She will be on prednisone for 5 more days, low-dose at 20 mg. - Additional Information Resuscitation Status: Do Not Resuscitate Discharge Diet: Diabetic Discharge Activity: Slowly Increase Activity Home Medications: Atorvastatin Calcium [Lipitor 10 mg Tablet] 10 mg PO QHS 04/21/17 Cholecalciferol (Vitamin D3) [Vitamin D3 5000 unit Capsule] 5,000 units PO DAILY 04/21/17 Diazepam [Valium 5 mg Tablet] 5 mg PO QHS 04/21/17 Duloxetine HCl [Cymbalta] 60 mg PO DAILY 04/21/17 Hydroxyzine HCl [Atarax 25 mg Tablet] 25 mg PO HSP PRN 04/21/17 Insulin Glargine,Hum.rec.anlog [Lantus Solostar] 40 units SQ Q12 04/21/17 Metformin HCl [Glucophage] 1,000 mg PO BID 04/21/17 Rivaroxaban [Xarelto 10 mg Tablet] 10 mg PO QHS 04/21/17 Doxycycline Hyclate [Vibramycin 100 mg Tablet] 100 mg PO Q12 6 Days #12 tablet 04/22/17 Folic Acid [Folvite 1 mg Tablet] 1 mg PO DAILY 30 Days #30 tablet 04/22/17 Insulin Lispro [Humalog Insulin (Lispro) 100 unit/mL] 0 unit SUBCUT ACHS PRN unit 04/22/17 Ipratropium/Albuterol Sulfate [Duoneb 3 ml Ampul] 3 ml NEB RTQ6 #60 vial.neb Multivitamin [Tab-A-Tamy (Multiple Vitamin) Tablet] 1 tab PO DAILY 30 Days #30 tablet 04/22/17 Prednisone [Deltasone 20 mg Tablet] 20 mg PO DAILY 5 Days #5 tablet 04/22/17 Thiamine HCl [Thiamine 100 mg Tablet] 100 mg PO DAILY 30 Days #30 tablet History of Present Illness History of Present Illness: VIVEK MAGUIRE is a 71 year old female Physical Exam Vital Signs: Temp Pulse Resp BP Pulse Ox 97.6 F 79 18 144/78 H 97 04/22/17 11:22 04/22/17 11:22 04/22/17 11:22 04/22/17 11:22 04/22/17 11:22 Intake & Output 04/21/17 04/22/17 04/23/17 06:59 06:59 06:59 Intake Total 670 Balance 670 Weight 70.9 kg General appearance: PRESENT: no acute distress, disheveled, thin Head exam: PRESENT: atraumatic, normocephalic Eye exam: PRESENT: EOMI. ABSENT: scleral icterus Ear exam: PRESENT: normal external ear exam Mouth exam: PRESENT: moist Neck exam: ABSENT: lymphadenopathy Respiratory exam: PRESENT: decreased breath sounds, prolonged expiratory phas. ABSENT: rales, wheezes Pulses: PRESENT: normal radial pulses GI/Abdominal exam: PRESENT: normal bowel sounds, soft. ABSENT: ascites, guarding, rebound, tenderness Extremities exam: PRESENT: other - Trace pedal edema Musculoskeletal exam: PRESENT: other - Traumatic lesions over the bilateral legs likely secondary to falling Neurological exam: PRESENT: alert, awake, oriented to person, oriented to place , oriented to time, oriented to situation, other - She has a slow stooped gait, I walked with her in the hallway and she was able to use a walker in a semi- effectively. Skin exam: PRESENT: abrasion, dry, warm, other - Traumatic lesions as already noted Results Laboratory Results: 04/22/17 06:34 04/22/17 06:34 04/21/17 04/21/17 04/21/17 18:02 19:15 19:15 WBC RBC Hgb Hct MCV MCH MCHC RDW Plt Count Sodium 130.3 L Potassium 5.9 H Chloride 91 L Carbon Dioxide 29 Anion Gap 10 BUN 18 Creatinine 1.07 Est GFR ( Amer) > 60 Est GFR (Non-Af Amer) 50 L Glucose Cancelled 765 H* 762 H* Calcium 8.5 04/22/17 04/22/17 06:34 06:34 WBC 12.5 H RBC 3.85 Hgb 10.7 L Hct 33.2 L MCV 86 MCH 27.7 MCHC 32.1 RDW 16.3 H Plt Count 243 Sodium 130.0 L Potassium 4.4 D Chloride 93 L Carbon Dioxide 28 Anion Gap 9 BUN 21 H Creatinine 0.83 Est GFR ( Amer) > 60 Est GFR (Non-Af Amer) > 60 Glucose 354 H Calcium 8.4 04/22/17 11:51 Troponin I < 0.012 Impressions: Chest X-Ray 04/21/17 09:51 IMPRESSION: 1. Chronic lung changes with no acute cardiopulmonary disease. 2. Questionable 2 cm mass seen anteriorly on the lateral view. Consider CT for further evaluation. Qualifiers PATEINT BEING DISCHARGED WITH ANY OF THE FOLLOWING DIAGNOSIS?: No Plan Time Spent: Less than 30 Minutes
[2017-04-23] MEDS ORDERED: FOLIC ACID 1 MG TABLET PO SCH (10:00)
[2017-04-23] MEDS ORDERED: THIAMINE HCL 100 MG TABLET PO SCH (10:00)
[2017-04-23] MEDS ORDERED: MULTIVITAMIN TABLET PO SCH (10:00)
== END 2017-04-22 12:18 | disposition left against medical advice (07) | DRG 192 ==
LOC: ER 09:17 → EH 15:19 → 5 18:38
PROVIDERS: ADMIT Hospitalist; ATTEND Hospitalist
DX: J44.1 Chronic obstructive pulmonary disease with (acute) exacerbation (principal); R09.02 Hypoxemia; F32.9 Major depressive disorder, single episode, unspecified; F51.04 Psychophysiologic insomnia; E11.65 Type 2 diabetes mellitus with hyperglycemia; T38.0X5A Adverse effect of glucocorticoids and synthetic analogues, initial encounter; Z66 Do not resuscitate; F10.20 Alcohol dependence, uncomplicated; Z87.81 Personal history of (healed) traumatic fracture; F17.210 Nicotine dependence, cigarettes, uncomplicated; Z79.899 Other long term (current) drug therapy; Z82.49 Family history of ischemic heart disease and other diseases of the circulatory system; Z80.0 Family history of malignant neoplasm of digestive organs; Z79.4 Long term (current) use of insulin; Z88.8 Allergy status to other drugs, medicaments and biological substances; Z88.0 Allergy status to penicillin; S80.812A Abrasion, left lower leg, initial encounter; S80.811A Abrasion, right lower leg, initial encounter; W19.XXXA Unspecified fall, initial encounter
CPT/HCPCS: 36415; 71020; 80048; 80053; 80307; 82140; 82550; 82553; 82565; 82803; 82947; 82962; 83605; 84484; 85025; 85027; 85610; 85730; 87040; 93005; 93010; 94640; 96361; 96374; 99285; G8978-GP; G8979-GP; J1650; J1815; J2930; J7030; J7620

== ENCOUNTER 2017-04-27 14:28 | Inpatient (IN) | payer MEDICARE, BC, OTHER ==
[2017-04-25] MEDS: FLUTICASONE NASAL SPRAY 50 MCG/SPRY 120 SPRAY/16 GM NASL SCH (11:00)
[2017-04-27] MEDS ORDERED: NORMAL SALINE 1000 ML 1,000 ML IV ONE ×2 (14:35→16:02)
[2017-04-27] MEDS ORDERED: IPRATROPIUM/ALBUTEROL 0.5-2.5 MG/3 ML AMPUL NEB ONE (15:04)
[2017-04-27 15:10] LABS: ABSOLUTE BASOPHILS # (AUTO) 0.1 10^3/uL (0.0-0.2); ABSOLUTE EOSINOPHILS # (AUTO) 0.4 10^3/uL (0.0-0.6); ABSOLUTE LYMPHOCYTES (AUTO) 1.8 10^3/uL (0.5-4.7); ABSOLUTE NEUT (AUTO) 6.6 10^3/uL (1.7-8.2); BASOPHILS % (AUTO) 0.9 % (0-2); EOSINOPHILS % (AUTO) 4.3 % (0-6); HEMATOCRIT 35.6 % (36.0-47.0); HEMOGLOBIN 11.3 g/dL (12.0-15.5); HGB HCT DIFFERENCE -1.7; LYMPHOCYTES % (AUTO) 17.9 % (13-45); MEAN CORPUSCULAR HEMOGLOBIN 27.9 pg (27.0-33.4); MEAN CORPUSCULAR HGB CONC 31.8 g/dL (32.0-36.0); MEAN CORPUSCULAR VOLUME 88 fl (80-97); MONOCYTES % (AUTO) 10.2 % (3-13); RED BLOOD COUNT 4.06 10^6/uL (3.72-5.28); RED CELL DISTRIBUTION WIDTH 17.3 % (11.5-14.0); SEGMENTED NEUTROPHILS % (AUTO) 66.7 % (42-78)
[2017-04-27 15:34] LABS: ALANINE AMINOTRANSFERASE 21 U/L (9-52); ALBUMIN 2.9 g/dL (3.5-5.0); ALKALINE PHOSPHATASE 155 U/L (38-126); ANION GAP 8 (5-19); ASPARTATE AMINO TRANSFERASE 24 U/L (14-36); BILIRUBIN,DIRECT 0.4 mg/dL (0.0-0.4); BILIRUBIN,TOTAL 0.5 mg/dL (0.2-1.3); BLOOD UREA NITROGEN 14 mg/dL (7-20); CALCIUM 7.5 mg/dL (8.4-10.2); CARBON DIOXIDE 32 mmol/L (22-30); CHLORIDE 91 mmol/L (98-107); CREATININE RESULT 0.82 mg/dL (0.52-1.25); POTASSIUM 3.6 mmol/L (3.6-5.0)
--- NOTE | 2017-04-27 15:35 | RADIOLOGY REPORT (SQ) ---
EXAM DESCRIPTION: CHEST PA/LAT COMPLETED DATE/TIME: 04/27/2017 3:27 pm REASON FOR STUDY: sob COMPARISON: 04/21/2017 EXAM PARAMETERS: NUMBER OF VIEWS: two views TECHNIQUE: Digital Frontal and Lateral radiographic views of the chest acquired. RADIATION DOSE: NA LIMITATIONS: none FINDINGS: LUNGS AND PLEURA: No opacities, masses or pneumothorax. No pleural effusion. MEDIASTINUM AND HILAR STRUCTURES: No masses or contour abnormalities. HEART AND VASCULAR STRUCTURES: Heart normal size. No evidence for failure. BONES: No acute findings. HARDWARE: None in the chest. OTHER: No other significant finding. IMPRESSION: NO SIGNIFICANT RADIOGRAPHIC FINDING IN THE CHEST. TECHNICAL DOCUMENTATION: JOB ID: [id number] [employer]- All Rights Reserved
[2017-04-27 15:44] LABS: GLUCOSE 492 mg/dL (75-110)
[2017-04-27] MEDS ORDERED: INSULIN REG, HUMAN 100 UNIT/ML 3 ML VIAL (PYX) SUBCUT ONE (16:02)
--- NOTE | 2017-04-27 17:26 | ER Document Report ---
ED General - General Chief Complaint: High Blood Sugar Stated Complaint: BLOOD SUGAR ISSUES Time Seen by Provider: 04/27/17 14:46 TRAVEL OUTSIDE OF THE [place] IN LAST 30 DAYS: No - HPI Patient complains to provider of: Elevated blood sugars Notes: Patient coming in for evaluation of elevated blood sugars and shortness of breath cough. Patient was recently admitted for COPD as her patient. Patient has a history of medication noncompliance patient also has history of smoking and alcohol abuse. Patient states that she continues to smoke continues to drink alcohol. Patient states cough ongoing for 2 weeks. Patient states she was recently discharged from the hospital approximately 1 week ago. Patient denies any fever chills nausea vomiting diarrhea. Patient was found slightly hypoxic with SPO2 according to EMS in the lower 90s and was placed on 4 L nasal cannula. No treatment was given. - Related Data Allergies/Adverse Reactions: valsartan [From Dwaynevan] Allergy (Unknown, Verified 02/08/17 08:51) Penicillins Allergy (Verified 02/08/17 08:51) exenatide [From Shweta] Adverse Reaction (Severe, Verified 02/08/17 14:52) Migraine Past Medical History - Social History Smoking Status: Current Every Day Smoker Chew tobacco use (# tins/day): No Frequency of alcohol use: None Drug Abuse: None Family History: CAD, Malignancy - Throat cancer, Other - Alzheimer's Patient has suicidal ideation: No Patient has homicidal ideation: No - Past Medical History Cardiac Medical History: Reports: Hx Hypercholesterolemia, Hx Hypertension Pulmonary Medical History: Reports: Hx Asthma, Hx COPD Endocrine Medical History: Reports: Hx Diabetes Mellitus Type 1, Hx Diabetes Mellitus Type 2 Renal/ Medical History: Denies: Hx Peritoneal Dialysis Psychiatric Medical History: Reports: Hx Depression Past Surgical History: Reports: Hx Adenoidectomy, Hx Orthopedic Surgery - Patient has had both left and right hip fracture repairs secondary to falls, Hx Tonsillectomy, Other - Cataract - Immunizations Hx Diphtheria, Pertussis, Tetanus Vaccination: Yes Hx Pneumococcal Vaccination: 05/24/11 Review of Systems - Review of Systems Constitutional: No symptoms reported EENT: No symptoms reported Cardiovascular: No symptoms reported Respiratory: Cough Gastrointestinal: No symptoms reported Genitourinary: No symptoms reported Female Genitourinary: No symptoms reported Musculoskeletal: No symptoms reported Skin: No symptoms reported Hematologic/Lymphatic: No symptoms reported Neurological/Psychological: No symptoms reported -: Yes All other systems reviewed and negative Physical Exam - Vital signs Vitals: Pulse Resp BP Pulse Ox 96 24 H 160/87 H 94 04/27/17 14:35 04/27/17 14:35 04/27/17 14:35 04/27/17 14:35 Interpretation: Normal - General General appearance: Appears well, Alert Notes: Patient looks disheveled. - HEENT Head: Normocephalic, Atraumatic Eyes: Normal Pupils: PERRL - Respiratory Respiratory status: No respiratory distress Chest status: Nontender Breath sounds: Normal Chest palpation: Normal - Cardiovascular Rhythm: Regular Heart sounds: Normal auscultation Murmur: No - Abdominal Inspection: Normal Distension: No distension Bowel sounds: Normal Tenderness: Nontender Organomegaly: No organomegaly - Back Back: Normal, Nontender - Extremities General upper extremity: Normal inspection, Nontender, Normal color, Normal ROM , Normal temperature General lower extremity: Normal inspection, Nontender, Normal color, Normal ROM , Normal temperature, Normal weight bearing. No: Kevan's sign - Neurological Neuro grossly intact: Yes Cognition: Normal Orientation: AAOx4 Granite Coma Scale Eye Opening: Spontaneous Zac Coma Scale Verbal: Oriented Granite Coma Scale Motor: Obeys Commands Zac Coma Scale Total: 15 Speech: Normal Motor strength normal: LUE, RUE, LLE, RLE Sensory: Normal - Psychological Associated symptoms: Normal affect, Normal mood - Skin Skin Temperature: Warm Skin Moisture: Dry Skin Color: Normal Course - Re-evaluation Re-evalutation: 04/27/17 18:16 Patient laboratory studies that showed elevated blood sugar no signs of DKA. Patient lung sounds are otherwise clear on evaluation. Upon last evaluation patient had no other complaints other than that she was upset that she was not being admitted to the hospital. I did ask nursing staff to clean one last set of vital signs. I did turn the patient's oxygen off of that she is not on home O2. Continue vital signs did take some time however once this was obtained was notified by nursing staff patient had an SPO2 of 73. Patient was placed back on 2 L nasal cannula oxygen. Otherwise no critical pathology seen patient will be admitted to the hospitalist service. Dr. Arauz graciously accepted this patient is glad to participate in her care. - Vital Signs Vital signs: Temp Pulse Resp BP Pulse Ox 96 24 H 160/87 H 94 12/05/17 14:35 04/27/17 14:35 04/27/17 14:35 04/27/17 14:35 - Laboratory Result Diagrams: 04/27/17 14:51 04/27/17 14:51 Laboratory results interpreted by me: 04/27/17 04/27/17 14:51 14:51 Hgb 11.3 L Hct 35.6 L MCHC 31.8 L RDW 17.3 H Sodium 131.0 L Chloride 91 L Carbon Dioxide 32 H Glucose 492 H* Calcium 7.5 L Alkaline Phosphatase 155 H Total Protein 6.0 L Albumin 2.9 L Discharge - Discharge Clinical Impression: Tobacco abuse, Cough, Alcohol use disorder, Hyperglycemia, Hypoxia, COPD ( chronic obstructive pulmonary disease) Condition: Good Disposition: ADMITTED OBSERVATION Unit Admitted: Telemetry Instructions: Hyperglycemia ([facility]) Additional Instructions: Your chest x-ray does not show any signs of pneumonia today. Your lab work shows no critical findings except for an elevated blood sugar there is no signs of HHS or DKA. Please take your medications as they are prescribed. This is the only way that your medical conditions will improve. He may take the inhaler provided 2 puffs every 4 hours and will aid in the shortness of breath or cough will recommend tapering her alcohol use and your tobacco use. Prescriptions: Albuterol Sulfate [Proair HFA] 1 - 2 puff IH Q4 PRN #1 inhaler PRN Reason: Referrals: SIVA ANAYA MD [Primary Care Provider] - Follow up in 3-5 days
[2017-04-27 19:09] LABS: VENOUS BLOOD HCO3 33.6 mmol/L (20-32); VENOUS BLOOD PCO2 57.3 mmHg (35-63); VENOUS BLOOD PH 7.39 (7.30-7.42)
[2017-04-27] MEDS ORDERED: MAG HYDROX/AL HYDROX/SIMETH SUSP 30 ML UDCUP PO PRN (19:18)
[2017-04-27] MEDS ORDERED: DEXTROSE 40% GEL 15 GM TUBE PO PRN ×2 (19:18)
[2017-04-27] MEDS ORDERED: ACETAMINOPHEN 325 MG TABLET PO PRN (19:18)
[2017-04-27] MEDS ORDERED: GLUCAGON,HUMAN RECOMB 1 MG INJ IM PRN (19:18)
[2017-04-27] MEDS ORDERED: DEXTROSE 50%-WATER 25 GM/50 ML DISP.SYRIN IV PRN ×2 (19:18)
[2017-04-27] MEDS ORDERED: NICOTINE 7 MG/24 HR PATCH.TD24 TD ONE (19:26)
[2017-04-27] MEDS ORDERED: CHLORPHENIRAMINE MALEATE 4 MG TABLET PO ONE (20:00)
[2017-04-27 20:03] LABS: MAGNESIUM 1.9 mg/dL (1.6-2.3); PHOSPHORUS 2.5 mg/dL (2.5-4.5)
--- NOTE | 2017-04-27 20:27 | PDOC H&P ---
History of Present Illness Admission Date/PCP: 04/27/17 19:09 SIVA ANAYA MD Patient complains of: Shortness of breath and polyuria History of Present Illness: VIVEK MAGUIRE is a 71 year old female with a past medical history of hypertension, insulin dependent diabetes, COPD, depression, peripheral vascular disease, peripheral neuropathy, restless leg syndrome, recurrent falls, noncompliance, tobacco and alcohol dependence. Patient presents 5 days after hospitalization for COPD exacerbation and uncontrolled diabetes, noted for leaving [facility] AGAINST MEDICAL ADVICE. She returns disheveled with primary complaints of polyuria, shortness of breath, left leg edema. She admits nonproductive cough inability to walk safely or fill medications. She denies fever chills nausea vomiting or chest pain. Workup reveals hypoxia with pulse oximetry of 75, hyperglycemia of 460, and left leg edema. She receives albuterol and Atrovent and is referred to the hospitalist for admission. Past Medical History Cardiac Medical History: Reports: Hyperlipidema, Hypertension, Peripheral Vascular Disease Denies: Atrial Fibrillation, Congestive Heart Failure, Pulmonary Embolism Pulmonary Medical History: Reports: Bronchitis, Chronic Obstructive Pulmonary Disease (COPD) Endocrine Medical History: Reports: Diabetes Mellitus Type 1, Diabetes Mellitus Type 2 Psychiatric Medical History: Reports: Alcohol Dependency, Depression, Tobacco Dependency Hematology: Denies: Bleeding Tendencies Past Surgical History Past Surgical History: Reports: Adenoidectomy, Orthopedic Surgery - Patient has had both left and right hip fracture repairs secondary to falls, Tonsillectomy, Other - Cataract, left great toe amputation Social History Smoking Status: Current Every Day Smoker Frequency of Alcohol Use: Heavy Hx Recreational Drug Use: No Drugs: None Hx Prescription Drug Abuse: No - Advance Directive Resuscitation Status: Full Code Family History Family History: CAD, Malignancy - Throat cancer, Other - Alzheimer's Parental Family History Reviewed: Yes Children Family History Reviewed: Yes Sibling(s) Family History Reviewed.: Yes Medication/Allergy Allergies/Adverse Reactions: valsartan [From Diovan] Allergy (Unknown, Verified 04/27/17 19:06) Penicillins Allergy (Verified 04/27/17 19:06) exenatide [From Byetta] Adverse Reaction (Severe, Verified 04/27/17 19:06) Migraine Review of Systems Constitutional: PRESENT: as per HPI, anorexia, fatigue, weakness. ABSENT: fever (s), headache(s) Eyes: ABSENT: visual disturbances Ears: ABSENT: hearing changes Cardiovascular: PRESENT: dyspnea on exertion. ABSENT: chest pain, orthropnea, palpitations Respiratory: PRESENT: as per HPI, cough, dyspnea. ABSENT: hemoptysis, sputum Gastrointestinal: ABSENT: abdominal pain, constipation, diarrhea, hematemesis, hematochezia, nausea, vomiting Genitourinary: ABSENT: dysuria, hematuria Musculoskeletal: PRESENT: muscle weakness, other - Left leg edema. ABSENT: joint swelling Integumentary: PRESENT: as per HPI, erythema, other - 2 cm ulcer anterior left leg Neurological: PRESENT: as per HPI, abnormal gait, frequent falls, lack of coordination, paresthesias, restless legs, weakness. ABSENT: vertigo Psychiatric: ABSENT: anxiety, depression, hallucinations, homidical ideation, suicidal ideation Endocrine: PRESENT: polydipsia, polyuria Hematologic/Lymphatic: ABSENT: easy bleeding, easy bruising Physical Exam Vital Signs: Temp Pulse Resp BP Pulse Ox 96 19 154/81 H 98 04/27/17 14:35 04/27/17 19:00 04/27/17 18:31 04/27/17 19:01 General appearance: PRESENT: cooperative, disheveled Head exam: PRESENT: atraumatic, normocephalic Eye exam: PRESENT: conjunctiva pink, EOMI, PERRLA. ABSENT: scleral icterus Ear exam: PRESENT: normal external ear exam Mouth exam: PRESENT: moist, tongue midline Neck exam: ABSENT: carotid bruit, JVD, lymphadenopathy, thyromegaly Respiratory exam: PRESENT: crackles, prolonged expiratory phas, symmetrical. ABSENT: accessory muscle use, chest wall tenderness, rhonchi, stridor Cardiovascular exam: PRESENT: RRR. ABSENT: diastolic murmur, rubs, systolic murmur Pulses: PRESENT: +1 pedal pulses bilateral Vascular exam: PRESENT: pallor, other - Chronic venous changes GI/Abdominal exam: PRESENT: normal bowel sounds, soft. ABSENT: distended, guarding, mass, organolmegaly, rebound, tenderness Rectal exam: PRESENT: deferred Extremities exam: PRESENT: calf tenderness, pedal edema, +1 edema Neurological exam: PRESENT: alert, awake, oriented to person, oriented to place , oriented to time, oriented to situation, CN II-XII grossly intact. ABSENT: motor sensory deficit Psychiatric exam: PRESENT: appropriate affect, normal mood. ABSENT: homicidal ideation, suicidal ideation Skin exam: PRESENT: other - Left leg and foot erythemic, 2 cm left leg ulcer with serosanguineous drainage Results Impressions: Chest X-Ray 04/27/17 15:05 IMPRESSION: NO SIGNIFICANT RADIOGRAPHIC FINDING IN THE CHEST. Assessment & Plan - Diagnosis (1) Gait disorder Is this a current diagnosis for this admission?: Yes Plan: With recurrent falls resulting in bilateral hip fracture, complicated by diabetic peripheral neuropathy, noncompliance and tobacco. Orthostatic blood pressures, physical and occupational therapy evaluation, education, thiamine and folate (2) Peripheral vascular disease Is this a current diagnosis for this admission?: Yes Plan: Complicated by persistent hyperglycemia and recurrent injury from falls. Supportive care (3) Diabetic leg ulcer Is this a current diagnosis for this admission?: Yes Plan: Blood and wound culture, empiric antibiotic, surgical consultation consider leg CT for occult abscess. (4) COPD exacerbation Is this a current diagnosis for this admission?: Yes Plan: Monitored bed, supplemental oxygen, flutter valve, incentive spirometry, albuterol and Atrovent. (5) Cellulitis of left leg Is this a current diagnosis for this admission?: Yes Plan: Concern for chronicity, empiric antibiotic, blood and wound culture, consider additional imaging for osteo-myelitis. (6) Continuous tobacco abuse Is this a current diagnosis for this admission?: Yes Plan: Tobacco Dependence patient received tobacco cessation counseling and offered nicotine replacement options (7) Hyponatremia Is this a current diagnosis for this admission?: Yes Plan: Likely pseudohyponatremia secondary to hyperglycemia, reevaluate and chemistry (8) Type 2 diabetes mellitus with hyperglycemia Qualifiers: Diabetes mellitus disposal operator insulin use: with disposal operator use Qualified Code( s): E11.65 - Type 2 diabetes mellitus with hyperglycemia Is this a current diagnosis for this admission?: Yes Plan: Home regiment with sliding scale insulin, education (9) At risk for readmission to hospital Is this a current diagnosis for this admission?: Yes Plan: Discharge planning consult patient returns 5 days post AMA severely disheveled. Strongly doubt the patient's ability to care for herself independently. - Time Time Spent: 50 to 70 Minutes - Inpatient Certification Medical Necessity: Need Close Monitoring Due to Risk of Patient Decompensation
[2017-04-27 21:14] LABS: URINE BARBITURATES SCREEN NEGATIVE; URINE METHADONE SCREEN NEGATIVE; URINE OPIATES LOW NEGATIVE; URINE PHENCYCLIDINE SCREEN NEGATIVE
[2017-04-27] MEDS ORDERED: MAGNESIUM HYDROXIDE SUSP 30 ML UDCUP PO PRN (22:00)
[2017-04-27] MEDS ORDERED: TEMAZEPAM 7.5 MG CAPSULE PO PRN (22:00)
[2017-04-27 22:27] LABS: APPEARANCE,URINE SLIGHTLY-CLOUDY; BILIRUBIN,URINE NEGATIVE (NEGATIVE); GLUCOSE, URINE >=500 mg/dL (NEGATIVE); KETONES,URINE NEGATIVE (NEGATIVE); LEUKOCYTE ESTERASE,URINE SMALL (NEGATIVE); NITRITE,URINE NEGATIVE (NEGATIVE); PROTEIN,URINE >=500 mg/dL (NEGATIVE); URINE SPECIFIC GRAVITY 1.027; UROBILINOGEN,URINE NEGATIVE mg/dL (<2.0)
[2017-04-27 22:31] LABS: BACTERIA,URINE 1+ /HPF
[2017-04-27] MEDS: HEPARIN SOD (PORCINE) 5,000 UNIT/ML 1 ML SYRINGE SUBCUT SCH (22:45)
[2017-04-27] MEDS: FLUTICASONE NASAL SPRAY 50 MCG/SPRY 120 SPRAY/16 GM NASL SCH (23:28)
[2017-04-27] MEDS: THIAMINE HCL 100 MG, FOLIC ACID 1 MG in NORMAL SALINE 250 ML IV SCH (23:30)
[2017-04-28] MEDS: INSULIN LISPRO 100 UNIT/ML 3 ML VIAL SUBCUT PRN ×3 (00:02→16:48)
[2017-04-28] MEDS: IPRATROPIUM/ALBUTEROL 0.5-2.5 MG/3 ML AMPUL NEB SCH ×4 (00:32→23:38)
--- NOTE | 2017-04-28 02:47 | RADIOLOGY REPORT (SQ) ---
EXAM DESCRIPTION: VENOUS UNILATERAL LOWER CLINICAL HISTORY: 71 years, Female, left leg edema and pain COMPARISON: None. TECHNIQUE: Venous Doppler. LIMITATIONS: None. FINDINGS: Compression, color Doppler, and augmentation evaluation of the deep venous system of the left lower extremity shows no evidence of deep venous thrombosis. Comparative view of the contralateral right common femoral vein appears unremarkable. IMPRESSION: No evidence of deep venous thrombosis of the left lower extremity. 2011 [employer]- All Rights Reserved
[2017-04-28] MEDS ORDERED: VANCOMYCIN HCL 1,000 MG in DEXTROSE 5%-WATER 250 ML IV ONE (06:04)
[2017-04-28] MEDS ORDERED: AMITRIPTYLINE HCL 25 MG TABLET PO PRN (06:05)
[2017-04-28] MEDS ORDERED: VANCOMYCIN HCL 0 MG in DEXTROSE 5%-WATER 250 ML IV NR (06:15)
[2017-04-28] MEDS: HEPARIN SOD (PORCINE) 5,000 UNIT/ML 1 ML SYRINGE SUBCUT SCH ×2 (06:35→13:37)
[2017-04-28 08:18] LABS: ABSOLUTE BASOPHILS # (AUTO) 0.1 10^3/uL (0.0-0.2); ABSOLUTE EOSINOPHILS # (AUTO) 0.4 10^3/uL (0.0-0.6); ABSOLUTE LYMPHOCYTES (AUTO) 1.5 10^3/uL (0.5-4.7); ABSOLUTE MONOCYTES (AUTO) 0.9 10^3/uL (0.1-1.4); ABSOLUTE NEUT (AUTO) 8.1 10^3/uL (1.7-8.2); BASOPHILS % (AUTO) 0.5 % (0-2); EOSINOPHILS % (AUTO) 4.1 % (0-6); HEMATOCRIT 37.9 % (36.0-47.0); HGB HCT DIFFERENCE -1.9; LYMPHOCYTES % (AUTO) 13.8 % (13-45); MEAN CORPUSCULAR HGB CONC 31.7 g/dL (32.0-36.0); MEAN CORPUSCULAR VOLUME 88 fl (80-97); RED BLOOD COUNT 4.29 10^6/uL (3.72-5.28); RED CELL DISTRIBUTION WIDTH 17.1 % (11.5-14.0); SEGMENTED NEUTROPHILS % (AUTO) 73.6 % (42-78)
[2017-04-28 08:33] LABS: BLOOD UREA NITROGEN 12 mg/dL (7-20); CREATINE KINASE 51 U/L (30-135); POTASSIUM 4.2 mmol/L (3.6-5.0)
[2017-04-28 08:46] LABS: ANION GAP 8 (5-19); CALCIUM 8.1 mg/dL (8.4-10.2); CARBON DIOXIDE 30 mmol/L (22-30); CHLORIDE 93 mmol/L (98-107); CREATININE RESULT 0.74 mg/dL (0.52-1.25); SODIUM 131.4 mmol/L (137-145)
[2017-04-28 08:55] LABS: GLUCOSE 467 mg/dL (75-110)
[2017-04-28] MEDS: FERROUS SULFATE 325 MG TABLET PO SCH (09:29)
[2017-04-28] MEDS: DOCUSATE SODIUM 100 MG CAPSULE PO SCH ×2 (09:29→16:49)
[2017-04-28] MEDS: DULOXETINE HCL 30 MG CAPSULE.DR PO SCH (09:29)
[2017-04-28] MEDS: INSULIN GLARGINE,HUM.REC.ANLOG 300 UNIT/3 ML INSULN.PEN SUBCUT SCH ×2 (10:02→22:59)
[2017-04-28] MEDS: VANCOMYCIN HCL 750 MG in DEXTROSE 5%-WATER 250 ML IV SCH ×2 (10:06→23:10)
[2017-04-28] MEDS: RAMIPRIL 10 MG CAPSULE PO SCH (10:07)
[2017-04-28] MEDS ORDERED: LORAZEPAM INJ 2 MG/1 ML VIAL IV PRN (12:25)
[2017-04-28] MEDS: LORAZEPAM 1 MG TABLET PO SCH ×2 (13:37→23:10)
--- NOTE | 2017-04-28 14:00 | PDOC PROGRESS REPORT ---
Subjective Progress Note for:: 04/28/17 Subjective:: Complains of pain in her leg Reason For Visit: ALCOHOL WITHDRAW,HYPERGLYCEMIA,FALLS,COPD Physical Exam Vital Signs: Temp Pulse Resp BP Pulse Ox 94 22 H 176/97 H 90 L 04/28/17 08:15 04/28/17 12:31 04/28/17 12:31 04/28/17 12:31 Intake & Output 04/27/17 04/28/17 04/29/17 06:59 06:59 06:59 Weight 68.993 kg General appearance: PRESENT: no acute distress Eye exam: PRESENT: conjunctiva pink. ABSENT: scleral icterus Mouth exam: PRESENT: moist, tongue midline Neck exam: ABSENT: JVD Respiratory exam: PRESENT: clear to auscultation lauren. ABSENT: rales, rhonchi, wheezes Cardiovascular exam: PRESENT: RRR. ABSENT: diastolic murmur, rubs, systolic murmur GI/Abdominal exam: PRESENT: normal bowel sounds, soft. ABSENT: distended, guarding, mass, organolmegaly, rebound, tenderness Extremities exam: PRESENT: pedal edema. ABSENT: calf tenderness, clubbing Neurological exam: PRESENT: alert, awake, oriented to person, oriented to place , oriented to time, oriented to situation, CN II-XII grossly intact. ABSENT: motor sensory deficit Psychiatric exam: PRESENT: appropriate affect Skin exam: PRESENT: other - Left leg with erythema and 2 cm ulcer on the mid bradley area Results Laboratory Results: 04/28/17 08:05 04/28/17 08:05 04/27/17 04/27/17 04/27/17 19:40 19:40 19:40 WBC RBC Hgb Hct MCV MCH MCHC RDW Plt Count Seg Neutrophils % Lymphocytes % Monocytes % Eosinophils % Basophils % Absolute Neutrophils Absolute Lymphocytes Absolute Monocytes Absolute Eosinophils Absolute Basophils Sodium Potassium Chloride Carbon Dioxide Anion Gap BUN Creatinine Est GFR ( Amer) Est GFR (Non-Af Amer) Glucose Calcium Phosphorus 2.5 Magnesium 1.9 Prealbumin 11.8 L TSH 1.72 Urine Color Urine Appearance Urine pH Ur Specific [place] Urine Protein Urine Glucose (UA) Urine Ketones Urine Blood Urine Nitrite Ur Leukocyte Esterase Ur Squamous Epith Cells 04/27/17 04/28/17 04/28/17 20:35 08:05 08:05 WBC 11.0 H RBC 4.29 Hgb 12.0 Hct 37.9 MCV 88 MCH 28.0 MCHC 31.7 L RDW 17.1 H Plt Count 263 Seg Neutrophils % 73.6 Lymphocytes % 13.8 Monocytes % 8.0 Eosinophils % 4.1 Basophils % 0.5 Absolute Neutrophils 8.1 Absolute Lymphocytes 1.5 Absolute Monocytes 0.9 Absolute Eosinophils 0.4 Absolute Basophils 0.1 Sodium 131.4 L Potassium 4.2 Chloride 93 L Carbon Dioxide 30 Anion Gap 8 BUN 12 Creatinine 0.74 Est GFR ( Amer) > 60 Est GFR (Non-Af Amer) > 60 Glucose 467 H* Calcium 8.1 L Phosphorus Magnesium Prealbumin TSH Urine Color YELLOW Urine Appearance SLIGHTLY-CLOUDY Urine pH 6.0 Ur Specific [place] 1.027 Urine Protein >=500 H Urine Glucose (UA) >=500 H Urine Ketones NEGATIVE Urine Blood MODERATE H Urine Nitrite NEGATIVE Ur Leukocyte Esterase SMALL H Ur Squamous Epith Cells MANY 04/27/17 04/28/17 04/28/17 19:40 01:20 08:05 Creatine Kinase 48 44 51 04/28/17 08:05 Creatine Kinase Cancelled Impressions: Venous Doppler Study 04/27/17 00:00 IMPRESSION: No evidence of deep venous thrombosis of the left lower extremity. 2010 [employer]- All Rights Reserved Chest X-Ray 04/27/17 15:05 IMPRESSION: NO SIGNIFICANT RADIOGRAPHIC FINDING IN THE CHEST. Assessment & Plan - Diagnosis (1) Diabetic leg ulcer Is this a current diagnosis for this admission?: Yes Plan: Continue with the vancomycin. (2) Gait disorder Is this a current diagnosis for this admission?: Yes Plan: Most likely secondary to her chronic alcohol use. (3) Alcohol use disorder Is this a current diagnosis for this admission?: Yes Plan: We will start her on scheduled Ativan along with as needed Ativan. (4) COPD (chronic obstructive pulmonary disease) Qualifiers: Is this a current diagnosis for this admission?: Yes (5) Peripheral vascular disease Is this a current diagnosis for this admission?: Yes (6) Anemia Qualifiers: Anemia type: unspecified type Qualified Code(s): D64.9 - Anemia, unspecified Is this a current diagnosis for this admission?: Yes (7) Anxiety Is this a current diagnosis for this admission?: Yes (8) Diabetes type 2, uncontrolled Qualifiers: Diabetes mellitus complication status: with unspecified complications Diabetes mellitus senior living insulin use: unspecified long term care social worker insulin use status Qualified Code(s): E11.8 - Type 2 diabetes mellitus with unspecified complications; E11.65 - Type 2 diabetes mellitus with hyperglycemia Is this a current diagnosis for this admission?: Yes Plan: Continue with Lantus and sliding scale insulin. (9) Restless leg syndrome Is this a current diagnosis for this admission?: Yes - Time Time Spent with patient: 25-34 minutes - Inpatient Certification Medical Necessity: Need for IV Antibiotics
[2017-04-28] MEDS ORDERED: RIVAROXABAN 10 MG PO SCH (22:00)
[2017-04-28] MEDS: RIVAROXABAN 10 MG TABLET PO SCH (23:02)
[2017-04-28] MEDS: FLUTICASONE NASAL SPRAY 50 MCG/SPRY 120 SPRAY/16 GM NASL SCH (23:02)
[2017-04-28] MEDS: THIAMINE HCL 100 MG, FOLIC ACID 1 MG in NORMAL SALINE 250 ML IV SCH (23:10)
[2017-04-29] MEDS: LORAZEPAM 1 MG TABLET PO SCH (05:48)
[2017-04-29 06:36] LABS: ABSOLUTE BASOPHILS # (AUTO) 0.1 10^3/uL (0.0-0.2); ABSOLUTE EOSINOPHILS # (AUTO) 0.7 10^3/uL (0.0-0.6); ABSOLUTE LYMPHOCYTES (AUTO) 3.5 10^3/uL (0.5-4.7); ABSOLUTE MONOCYTES (AUTO) 1.5 10^3/uL (0.1-1.4); ABSOLUTE NEUT (AUTO) 9.3 10^3/uL (1.7-8.2); BASOPHILS % (AUTO) 0.6 % (0-2); EOSINOPHILS % (AUTO) 4.4 % (0-6); HEMATOCRIT 35.4 % (36.0-47.0); HEMOGLOBIN 11.2 g/dL (12.0-15.5); HGB HCT DIFFERENCE -1.8; LYMPHOCYTES % (AUTO) 23.4 % (13-45); MEAN CORPUSCULAR HEMOGLOBIN 27.7 pg (27.0-33.4); MEAN CORPUSCULAR HGB CONC 31.8 g/dL (32.0-36.0); MEAN CORPUSCULAR VOLUME 87 fl (80-97); MONOCYTES % (AUTO) 9.9 % (3-13); RED BLOOD COUNT 4.06 10^6/uL (3.72-5.28); RED CELL DISTRIBUTION WIDTH 17.2 % (11.5-14.0); SEGMENTED NEUTROPHILS % (AUTO) 61.7 % (42-78)
[2017-04-29 06:57] LABS: ANION GAP 8 (5-19); BLOOD UREA NITROGEN 12 mg/dL (7-20); CALCIUM 8.5 mg/dL (8.4-10.2); CARBON DIOXIDE 28 mmol/L (22-30); CHLORIDE 98 mmol/L (98-107); CREATININE RESULT 0.68 mg/dL (0.52-1.25); GLUCOSE 43 mg/dL (75-110); POTASSIUM 3.6 mmol/L (3.6-5.0); SODIUM 134.3 mmol/L (137-145)
[2017-04-29] MEDS: IPRATROPIUM/ALBUTEROL 0.5-2.5 MG/3 ML AMPUL NEB SCH ×3 (07:55→23:54)
[2017-04-29] MEDS: RAMIPRIL 10 MG CAPSULE PO SCH (09:25)
[2017-04-29] MEDS: FERROUS SULFATE 325 MG TABLET PO SCH (09:26)
[2017-04-29] MEDS: DOCUSATE SODIUM 100 MG CAPSULE PO SCH ×2 (09:26→18:59)
[2017-04-29] MEDS: DULOXETINE HCL 30 MG CAPSULE.DR PO SCH (09:26)
[2017-04-29] MEDS: FLUTICASONE NASAL SPRAY 50 MCG/SPRY 120 SPRAY/16 GM NASL SCH ×2 (09:27→21:56)
[2017-04-29] MEDS: VANCOMYCIN HCL 750 MG in DEXTROSE 5%-WATER 250 ML IV SCH ×2 (09:27→21:56)
[2017-04-29] MEDS: INSULIN GLARGINE,HUM.REC.ANLOG 300 UNIT/3 ML INSULN.PEN SUBCUT SCH ×2 (09:29→21:56)
--- NOTE | 2017-04-29 09:50 | Physician Advisory Note ---
Physician Advisor ProgressNote .: Pursuant to the plan for [facility], I have reviewed the medical record for this patient. Physician Advisor Statement: Please consider documenting,if you agree: 1. "Hyponatremia, acute, likely due to " [Na 134.3 w/glc 43 now] 2. "suspected protein-calorie malnutrition [state mild, mod, or severe] with BMI 23.8, ____[?wt loss, ?appetite loss, ]" [if possible, give specifics on intake, wt loss, loss of SQ fat & muscle mass, diminished hand net developer strength, & clinical importance such as (A) nutritional assessment ordered, (B) modified diet or supplements ordered, (C) additional labs ordered, (D) prolonged wound healing time, (E) delayed infxn clearance] Thanks! CK
--- NOTE | 2017-04-29 16:07 | PDOC PROGRESS REPORT ---
Subjective Progress Note for:: 04/29/17 Subjective:: Complains of pain in her leg Reason For Visit: ALCOHOL WITHDRAW,HYPERGLYCEMIA,FALLS,COPD Physical Exam Vital Signs: Temp Pulse Resp BP Pulse Ox 98.3 F 79 18 160/70 H 97 04/29/17 11:04 04/29/17 11:04 04/29/17 11:04 04/29/17 11:04 04/29/17 11:04 Intake & Output 04/28/17 04/29/17 04/30/17 06:59 06:59 06:59 Intake Total 1316 Output Total 300 Balance 1016 Weight 65 kg General appearance: PRESENT: no acute distress, thin Eye exam: PRESENT: conjunctiva pink. ABSENT: scleral icterus Mouth exam: PRESENT: moist, tongue midline Neck exam: ABSENT: JVD Respiratory exam: PRESENT: clear to auscultation lauren. ABSENT: rales, rhonchi, wheezes Cardiovascular exam: PRESENT: RRR. ABSENT: diastolic murmur, rubs, systolic murmur GI/Abdominal exam: PRESENT: normal bowel sounds, soft. ABSENT: distended, guarding, mass, organolmegaly, rebound, tenderness Extremities exam: PRESENT: other - Ulcer on the mid bradley area erythematous but no purulent drainage.. ABSENT: calf tenderness, clubbing Neurological exam: PRESENT: alert, awake, oriented to person, oriented to place , oriented to time, oriented to situation, CN II-XII grossly intact. ABSENT: motor sensory deficit Psychiatric exam: PRESENT: appropriate affect Skin exam: PRESENT: other - 3 cm ulcer on the anterior bradley. Results Laboratory Results: 04/29/17 05:37 04/29/17 05:37 04/29/17 04/29/17 05:37 05:37 WBC 15.0 H RBC 4.06 Hgb 11.2 L Hct 35.4 L MCV 87 MCH 27.7 MCHC 31.8 L RDW 17.2 H Plt Count 304 Seg Neutrophils % 61.7 Lymphocytes % 23.4 Monocytes % 9.9 Eosinophils % 4.4 Basophils % 0.6 Absolute Neutrophils 9.3 H Absolute Lymphocytes 3.5 Absolute Monocytes 1.5 H Absolute Eosinophils 0.7 H Absolute Basophils 0.1 Sodium 134.3 L Potassium 3.6 Chloride 98 Carbon Dioxide 28 Anion Gap 8 BUN 12 Creatinine 0.68 Est GFR ( Amer) > 60 Est GFR (Non-Af Amer) > 60 Glucose 43 L Calcium 8.5 04/27/17 04/28/17 04/28/17 19:40 01:20 08:05 Creatine Kinase 48 44 51 04/28/17 08:05 Creatine Kinase Cancelled Impressions: Venous Doppler Study 04/27/17 00:00 IMPRESSION: No evidence of deep venous thrombosis of the left lower extremity. 2010 [employer]- All Rights Reserved Chest X-Ray 04/27/17 15:05 IMPRESSION: NO SIGNIFICANT RADIOGRAPHIC FINDING IN THE CHEST. Assessment & Plan - Diagnosis (1) Diabetic leg ulcer Is this a current diagnosis for this admission?: Yes Plan: Continue with the vancomycin. (2) Gait disorder Is this a current diagnosis for this admission?: Yes Plan: Most likely secondary to her chronic alcohol use. (3) Alcohol use disorder Is this a current diagnosis for this admission?: Yes Plan: We will decrease her Ativan as she is somewhat sedated. (4) COPD (chronic obstructive pulmonary disease) Qualifiers: Is this a current diagnosis for this admission?: Yes (5) Peripheral vascular disease Is this a current diagnosis for this admission?: Yes (6) Anemia Qualifiers: Anemia type: unspecified type Qualified Code(s): D64.9 - Anemia, unspecified Is this a current diagnosis for this admission?: Yes (7) Anxiety Is this a current diagnosis for this admission?: Yes (8) Diabetes type 2, uncontrolled Qualifiers: Diabetes mellitus complication status: with unspecified complications Diabetes mellitus penitentiary insulin use: unspecified watermelon harvesting supervisor insulin use status Qualified Code(s): E11.8 - Type 2 diabetes mellitus with unspecified complications; E11.65 - Type 2 diabetes mellitus with hyperglycemia Is this a current diagnosis for this admission?: Yes Plan: Continue with Lantus and sliding scale insulin. (9) Restless leg syndrome Is this a current diagnosis for this admission?: Yes - Time Time Spent with patient: 25-34 minutes - Inpatient Certification Medical Necessity: Need for IV Antibiotics
[2017-04-29] MEDS: RIVAROXABAN 10 MG TABLET PO SCH (21:56)
[2017-04-29] MEDS: THIAMINE HCL 100 MG, FOLIC ACID 1 MG in NORMAL SALINE 250 ML IV SCH (21:56)
[2017-04-29 22:13] LABS: CREATININE RESULT 0.68 mg/dL (0.52-1.25)
[2017-04-30] MEDS: LORAZEPAM INJ 2 MG/1 ML VIAL IV PRN ×2 (03:10→22:55)
[2017-04-30 07:28] LABS: ABSOLUTE BASOPHILS # (AUTO) 0.1 10^3/uL (0.0-0.2); ABSOLUTE EOSINOPHILS # (AUTO) 0.4 10^3/uL (0.0-0.6); ABSOLUTE LYMPHOCYTES (AUTO) 2.4 10^3/uL (0.5-4.7); ABSOLUTE MONOCYTES (AUTO) 1.3 10^3/uL (0.1-1.4); ABSOLUTE NEUT (AUTO) 9.6 10^3/uL (1.7-8.2); BASOPHILS % (AUTO) 0.5 % (0-2); HEMATOCRIT 35.9 % (36.0-47.0); HEMOGLOBIN 11.5 g/dL (12.0-15.5); HGB HCT DIFFERENCE -1.4; LYMPHOCYTES % (AUTO) 17.1 % (13-45); MEAN CORPUSCULAR HEMOGLOBIN 27.7 pg (27.0-33.4); MEAN CORPUSCULAR HGB CONC 31.9 g/dL (32.0-36.0); MEAN CORPUSCULAR VOLUME 87 fl (80-97); MONOCYTES % (AUTO) 9.2 % (3-13); RED BLOOD COUNT 4.14 10^6/uL (3.72-5.28); RED CELL DISTRIBUTION WIDTH 16.9 % (11.5-14.0); SEGMENTED NEUTROPHILS % (AUTO) 70.2 % (42-78); WHITE BLOOD COUNT 13.7 10^3/uL (4.0-10.5)
[2017-04-30] MEDS: IPRATROPIUM/ALBUTEROL 0.5-2.5 MG/3 ML AMPUL NEB SCH ×2 (07:37→16:07)
[2017-04-30 07:54] LABS: ANION GAP 8 (5-19); BLOOD UREA NITROGEN 11 mg/dL (7-20); CALCIUM 8.3 mg/dL (8.4-10.2); CARBON DIOXIDE 29 mmol/L (22-30); CHLORIDE 96 mmol/L (98-107); CREATININE RESULT 0.67 mg/dL (0.52-1.25); GLUCOSE 49 mg/dL (75-110); POTASSIUM 3.7 mmol/L (3.6-5.0); SODIUM 132.9 mmol/L (137-145)
[2017-04-30] MEDS: DULOXETINE HCL 30 MG CAPSULE.DR PO SCH (09:24)
[2017-04-30] MEDS: FERROUS SULFATE 325 MG TABLET PO SCH (09:24)
[2017-04-30] MEDS: DOCUSATE SODIUM 100 MG CAPSULE PO SCH ×2 (09:24→18:37)
[2017-04-30] MEDS: FLUTICASONE NASAL SPRAY 50 MCG/SPRY 120 SPRAY/16 GM NASL SCH ×2 (09:25→22:46)
[2017-04-30] MEDS: INSULIN GLARGINE,HUM.REC.ANLOG 300 UNIT/3 ML INSULN.PEN SUBCUT SCH ×2 (09:25→22:45)
--- NOTE | 2017-04-30 12:30 | PDOC PROGRESS REPORT ---
Subjective Progress Note for:: 04/30/17 Subjective:: Patient is confused this morning. Reason For Visit: ALCOHOL WITHDRAW,HYPERGLYCEMIA,FALLS,COPD Physical Exam Vital Signs: Temp Pulse Resp BP Pulse Ox 99.1 F 83 16 173/84 H 92 04/30/17 07:22 04/30/17 07:37 04/30/17 07:37 04/30/17 07:22 04/30/17 07:37 Intake & Output 04/29/17 04/30/17 05/01/17 06:59 06:59 06:59 Intake Total 1316 1300 Output Total 300 800 Balance 1016 500 Weight 65 kg 68.5 kg General appearance: PRESENT: no acute distress Eye exam: PRESENT: conjunctiva pink. ABSENT: scleral icterus Mouth exam: PRESENT: moist, tongue midline Neck exam: ABSENT: JVD Respiratory exam: PRESENT: clear to auscultation lauren. ABSENT: rales, rhonchi, wheezes Cardiovascular exam: PRESENT: RRR. ABSENT: diastolic murmur, rubs, systolic murmur GI/Abdominal exam: PRESENT: normal bowel sounds, soft. ABSENT: distended, guarding, mass, organolmegaly, rebound, tenderness Extremities exam: ABSENT: calf tenderness, clubbing, pedal edema Neurological exam: PRESENT: alert, awake, oriented to person, CN II-XII grossly intact. ABSENT: oriented to place, oriented to time, oriented to situation, motor sensory deficit Psychiatric exam: PRESENT: flat affect Skin exam: PRESENT: other - Erythema on the anterior bradley. Results Laboratory Results: 04/30/17 06:54 04/30/17 06:54 04/29/17 04/30/17 04/30/17 21:35 06:54 06:54 WBC 13.7 H RBC 4.14 Hgb 11.5 L Hct 35.9 L MCV 87 MCH 27.7 MCHC 31.9 L RDW 16.9 H Plt Count 303 Seg Neutrophils % 70.2 Lymphocytes % 17.1 Monocytes % 9.2 Eosinophils % 3.0 Basophils % 0.5 Absolute Neutrophils 9.6 H Absolute Lymphocytes 2.4 Absolute Monocytes 1.3 Absolute Eosinophils 0.4 Absolute Basophils 0.1 Sodium 132.9 L Potassium 3.7 Chloride 96 L Carbon Dioxide 29 Anion Gap 8 BUN 11 Creatinine 0.68 0.67 Est GFR ( Amer) > 60 > 60 Est GFR (Non-Af Amer) > 60 > 60 Glucose 49 L Calcium 8.3 L 04/28/17 17:25 Leg - Sore Gram Stain - Final 04/28/17 17:25 Leg - Sore Wound Culture - Final Staphylococcus Aureus 04/27/17 04/28/17 04/28/17 19:40 01:20 08:05 Creatine Kinase 48 44 51 04/28/17 08:05 Creatine Kinase Cancelled Impressions: Venous Doppler Study 04/27/17 00:00 IMPRESSION: No evidence of deep venous thrombosis of the left lower extremity. 2010 [email or web address]- All Rights Reserved Chest X-Ray 04/27/17 15:05 IMPRESSION: NO SIGNIFICANT RADIOGRAPHIC FINDING IN THE CHEST. Assessment & Plan - Diagnosis (1) Diabetic leg ulcer Is this a current diagnosis for this admission?: Yes Plan: Cultures are growing methicillin sensitive staph aureus. Will start on Ceftin and stop the vancomycin. (2) Gait disorder Is this a current diagnosis for this admission?: Yes Plan: Most likely secondary to her chronic alcohol use. (3) Alcohol use disorder Is this a current diagnosis for this admission?: Yes Plan: Patient is confused this morning. Will check an ammonia level and start on lactulose. (4) COPD (chronic obstructive pulmonary disease) Qualifiers: Is this a current diagnosis for this admission?: Yes (5) Peripheral vascular disease Is this a current diagnosis for this admission?: Yes (6) Anemia Qualifiers: Anemia type: unspecified type Qualified Code(s): D64.9 - Anemia, unspecified Is this a current diagnosis for this admission?: Yes (7) Anxiety Is this a current diagnosis for this admission?: Yes (8) Diabetes type 2, uncontrolled Qualifiers: Diabetes mellitus complication status: with unspecified complications Diabetes mellitus termite inspector insulin use: unspecified termite inspector insulin use status Qualified Code(s): E11.8 - Type 2 diabetes mellitus with unspecified complications; E11.65 - Type 2 diabetes mellitus with hyperglycemia Is this a current diagnosis for this admission?: Yes Plan: Continue with Lantus and sliding scale insulin. Her blood sugars have been running on the low end. (9) Restless leg syndrome Is this a current diagnosis for this admission?: Yes - Time Time Spent with patient: 15-24 minutes - Inpatient Certification Medical Necessity: Need Close Monitoring Due to Risk of Patient Decompensation
[2017-04-30] MEDS: RAMIPRIL 10 MG CAPSULE PO SCH (12:54)
[2017-04-30] MEDS ORDERED: CEFUROXIME 500 MG TABLET PO ONE (13:00)
[2017-04-30] MEDS ORDERED: LACTULOSE SYRUP 20 GM/30 ML UDCUP PO ONE (13:00)
[2017-04-30] MEDS: INSULIN LISPRO 100 UNIT/ML 3 ML VIAL SUBCUT PRN (18:36)
[2017-04-30] MEDS: LACTULOSE SYRUP 20 GM/30 ML UDCUP PO SCH ×2 (18:37→23:52)
[2017-04-30] MEDS: RIVAROXABAN 10 MG TABLET PO SCH (22:44)
[2017-04-30] MEDS: THIAMINE HCL 100 MG, FOLIC ACID 1 MG in NORMAL SALINE 250 ML IV SCH (22:46)
[2017-04-30] MEDS: CEFUROXIME 500 MG TABLET PO SCH (23:04)
[2017-05-01] MEDS: IPRATROPIUM/ALBUTEROL 0.5-2.5 MG/3 ML AMPUL NEB SCH ×2 (00:14→07:53)
[2017-05-01 05:47] LABS: ABSOLUTE BASOPHILS # (AUTO) 0.1 10^3/uL (0.0-0.2); ABSOLUTE EOSINOPHILS # (AUTO) 0.3 10^3/uL (0.0-0.6); ABSOLUTE LYMPHOCYTES (AUTO) 1.4 10^3/uL (0.5-4.7); ABSOLUTE MONOCYTES (AUTO) 0.9 10^3/uL (0.1-1.4); ABSOLUTE NEUT (AUTO) 8.2 10^3/uL (1.7-8.2); BASOPHILS % (AUTO) 0.5 % (0-2); EOSINOPHILS % (AUTO) 2.6 % (0-6); HEMATOCRIT 32.1 % (36.0-47.0); HEMOGLOBIN 10.3 g/dL (12.0-15.5); HGB HCT DIFFERENCE -1.2; MEAN CORPUSCULAR HEMOGLOBIN 27.9 pg (27.0-33.4); MEAN CORPUSCULAR HGB CONC 32.2 g/dL (32.0-36.0); MEAN CORPUSCULAR VOLUME 87 fl (80-97); MONOCYTES % (AUTO) 8.6 % (3-13); RED CELL DISTRIBUTION WIDTH 17.4 % (11.5-14.0); SEGMENTED NEUTROPHILS % (AUTO) 75.3 % (42-78); WHITE BLOOD COUNT 10.9 10^3/uL (4.0-10.5)
[2017-05-01 06:11] LABS: ANION GAP 6 (5-19); BLOOD UREA NITROGEN 14 mg/dL (7-20); CALCIUM 8.3 mg/dL (8.4-10.2); CARBON DIOXIDE 31 mmol/L (22-30); CHLORIDE 97 mmol/L (98-107); CREATININE RESULT 0.71 mg/dL (0.52-1.25); GLUCOSE 159 mg/dL (75-110); POTASSIUM 3.9 mmol/L (3.6-5.0); SODIUM 133.9 mmol/L (137-145)
[2017-05-01] MEDS: LACTULOSE SYRUP 20 GM/30 ML UDCUP PO SCH ×2 (06:31→12:12)
[2017-05-01] MEDS: CEFUROXIME 500 MG TABLET PO SCH (09:05)
[2017-05-01] MEDS: DOCUSATE SODIUM 100 MG CAPSULE PO SCH (09:05)
[2017-05-01] MEDS: DULOXETINE HCL 30 MG CAPSULE.DR PO SCH (09:05)
[2017-05-01] MEDS: RAMIPRIL 10 MG CAPSULE PO SCH (09:05)
[2017-05-01] MEDS: FLUTICASONE NASAL SPRAY 50 MCG/SPRY 120 SPRAY/16 GM NASL SCH (09:06)
[2017-05-01] MEDS: INSULIN GLARGINE,HUM.REC.ANLOG 300 UNIT/3 ML INSULN.PEN SUBCUT SCH (09:06)
[2017-05-01] MEDS: FERROUS SULFATE 325 MG TABLET PO SCH (09:06)
[2017-05-01] MEDS: INSULIN LISPRO 100 UNIT/ML 3 ML VIAL SUBCUT PRN (12:12)
--- NOTE | 2017-05-01 12:28 | PDOC DISCHARGE SUMMARY ---
General - Admit/Disc Date/PCP Admission Date/Primary Care Provider: 04/27/17 19:09 SIVA ANAYA MD Discharge Date: 05/01/17 - Discharge Diagnosis (1) Diabetic leg ulcer Is this a current diagnosis for this admission?: Yes Summary: Cultures grew out methicillin sensitive staph aureus. Being sent home on Ceftin. (2) Gait disorder Is this a current diagnosis for this admission?: Yes Summary: Secondary to alcohol abuse. (3) Alcohol use disorder Is this a current diagnosis for this admission?: Yes Summary: Patient did have delirium tremens during this hospitalization. Today she is alert and oriented 3. She is instructed to use her Valium as needed and avoid alcohol. (4) COPD (chronic obstructive pulmonary disease) Is this a current diagnosis for this admission?: Yes (5) Peripheral vascular disease Is this a current diagnosis for this admission?: Yes (6) Anemia Is this a current diagnosis for this admission?: Yes (7) Anxiety Is this a current diagnosis for this admission?: Yes (8) Diabetes type 2, uncontrolled Is this a current diagnosis for this admission?: Yes (9) Restless leg syndrome Is this a current diagnosis for this admission?: Yes - Additional Information Resuscitation Status: Full Code Discharge Diet: Cardiac, Diabetic Discharge Activity: Activity As Tolerated Home Medications: Amitriptyline HCl [Elavil 25 mg Tablet] 25 mg PO Q8HP PRN 04/27/17 Atorvastatin Calcium [Lipitor 10 mg Tablet] 10 mg PO QHS 04/27/17 Cholecalciferol (Vitamin D3) [Vitamin D3 5000 unit Capsule] 5,000 unit PO DAILY 04/27/17 Diazepam [Valium 5 mg Tablet] 5 mg PO QHS 04/27/17 Duloxetine HCl [Cymbalta] 60 mg PO DAILY 04/27/17 Ferrous Sulfate [Feosol 325 mg Tablet] 325 mg PO DAILY 04/27/17 Hydroxyzine HCl [Atarax 25 mg Tablet] 25 mg PO HSP PRN 04/27/17 Insulin Glargine,Hum.rec.anlog [Lantus Solostar] 40 unit SQ BID 04/27/17 Metformin HCl [Glucophage] 1,000 mg PO BID 04/27/17 Ramipril [Altace 10 mg Capsule] 10 mg PO DAILY 04/27/17 Rivaroxaban [Xarelto] 10 mg PO QHS 04/27/17 Cefuroxime Axetil [Ceftin 500 mg Tablet] 500 mg PO Q12 #14 tablet 05/01/17 History of Present Illness History of Present Illness: VIVEK MAGUIRE is a 71 year old female who has a history of hypertension and diabetes as well as COPD who presented after having left 5 days previously after being treated for COPD exacerbation. The patient returned with leg edema and some shortness of breath. She also is having trouble walking. Patient is noted to have left leg cellulitis along with a diabetic leg ulcer. Patient is admitted for treatment of the above. Hospital Course Hospital Course: 71-year-old female admitted with a diabetic leg ulcer. She was started on vancomycin initially and grew out methicillin staph aureus from her wound culture. She was switched over to Ceftin. The erythema improved and was felt that she could be discharged home. She also initially had problems with her gait but that has improved. During this hospitalization she developed delirium tremens treated with Ativan. On the day of discharge she was alert and oriented 3. She was instructed to avoid alcohol and to use her Valium that she rarely has at home as needed. Her other problems including diabetes and hypertension were stable during this hospitalization. Physical Exam Vital Signs: Temp Pulse Resp BP Pulse Ox 98.4 F 89 18 178/94 H 96 05/01/17 07:25 05/01/17 07:55 05/01/17 07:55 05/01/17 07:25 05/01/17 07:55 Intake & Output 04/30/17 05/01/17 05/02/17 06:59 06:59 06:59 Intake Total 1300 620 Output Total 800 Balance 500 620 Weight 68.5 kg General appearance: PRESENT: no acute distress Eye exam: PRESENT: conjunctiva pink. ABSENT: scleral icterus Mouth exam: PRESENT: moist, tongue midline Neck exam: ABSENT: JVD Respiratory exam: PRESENT: clear to auscultation lauren. ABSENT: rales, rhonchi, wheezes Cardiovascular exam: PRESENT: RRR. ABSENT: diastolic murmur, rubs, systolic murmur GI/Abdominal exam: PRESENT: normal bowel sounds, soft. ABSENT: distended, guarding, mass, organolmegaly, rebound, tenderness Extremities exam: PRESENT: other - Decreased erythema around the left bradley ulcer.. ABSENT: calf tenderness, clubbing, pedal edema Neurological exam: PRESENT: alert, awake, oriented to person, oriented to place , oriented to time, oriented to situation, CN II-XII grossly intact. ABSENT: motor sensory deficit Psychiatric exam: PRESENT: appropriate affect Skin exam: PRESENT: dry, intact, warm, other - Less erythema around the left anterior bradley ulcer.. ABSENT: cyanosis, rash Results Laboratory Results: 05/01/17 05:33 05/01/17 05:33 04/30/17 05/01/17 05/01/17 13:20 05:33 05:33 WBC 10.9 H RBC 3.70 L Hgb 10.3 L Hct 32.1 L MCV 87 MCH 27.9 MCHC 32.2 RDW 17.4 H Plt Count 277 Seg Neutrophils % 75.3 Lymphocytes % 13.0 Monocytes % 8.6 Eosinophils % 2.6 Basophils % 0.5 Absolute Neutrophils 8.2 Absolute Lymphocytes 1.4 Absolute Monocytes 0.9 Absolute Eosinophils 0.3 Absolute Basophils 0.1 Sodium 133.9 L Potassium 3.9 Chloride 97 L Carbon Dioxide 31 H Anion Gap 6 BUN 14 Creatinine 0.71 Est GFR ( Amer) > 60 Est GFR (Non-Af Amer) > 60 Glucose 159 H Calcium 8.3 L Ammonia < 8.7 L 04/28/17 17:25 Leg - Sore Gram Stain - Final 04/28/17 17:25 Leg - Sore Wound Culture - Final Staphylococcus Aureus 04/27/17 04/28/17 04/28/17 19:40 01:20 08:05 Creatine Kinase 48 44 51 04/28/17 08:05 Creatine Kinase Cancelled Impressions: Venous Doppler Study 04/27/17 00:00 IMPRESSION: No evidence of deep venous thrombosis of the left lower extremity. 2010 [employer]- All Rights Reserved Chest X-Ray 04/27/17 15:05 IMPRESSION: NO SIGNIFICANT RADIOGRAPHIC FINDING IN THE CHEST. Qualifiers PATEINT BEING DISCHARGED WITH ANY OF THE FOLLOWING DIAGNOSIS?: No Plan Discharge Plan: Patient is discharged home. Will follow with primary care in 1-2 weeks. Time Spent: Greater than 30 Minutes
[2017-05-01 15:09] VITALS: BP 176/83
== END 2017-05-01 15:35 | disposition home health service (06) | DRG 638 ==
LOC: ER 14:28 → EH 19:09 → OBSVTOIN 19:09 → 5 04-28 13:11
PROVIDERS: ADMIT Internal Medicine; ATTEND Internal Medicine
DX: E11.622 Type 2 diabetes mellitus with other skin ulcer (principal); E87.1 Hypo-osmolality and hyponatremia; L03.116 Cellulitis of left lower limb; L97.829 Non-pressure chronic ulcer of other part of left lower leg with unspecified severity; F10.231 Alcohol dependence with withdrawal delirium; E11.628 Type 2 diabetes mellitus with other skin complications; E11.65 Type 2 diabetes mellitus with hyperglycemia; E11.42 Type 2 diabetes mellitus with diabetic polyneuropathy; E11.51 Type 2 diabetes mellitus with diabetic peripheral angiopathy without gangrene; D64.9 Anemia, unspecified; G25.81 Restless legs syndrome; F41.9 Anxiety disorder, unspecified; R26.9 Unspecified abnormalities of gait and mobility; B95.61 Methicillin susceptible Staphylococcus aureus infection as the cause of diseases classified elsewhere; Z66 Do not resuscitate; F32.9 Major depressive disorder, single episode, unspecified; J44.9 Chronic obstructive pulmonary disease, unspecified; I10 Essential (primary) hypertension; I73.9 Peripheral vascular disease, unspecified; E78.5 Hyperlipidemia, unspecified; F17.200 Nicotine dependence, unspecified, uncomplicated; Z79.899 Other long term (current) drug therapy; Z82.49 Family history of ischemic heart disease and other diseases of the circulatory system; Z79.4 Long term (current) use of insulin; Z88.8 Allergy status to other drugs, medicaments and biological substances; Z88.0 Allergy status to penicillin; Z80.8 Family history of malignant neoplasm of other organs or systems; Z91.14 Patient's other noncompliance with medication regimen; Z91.81 History of falling; Z89.412 Acquired absence of left great toe; Z87.81 Personal history of (healed) traumatic fracture
CPT/HCPCS: 36415; 71020; 80048; 80053; 80202; 80307; 81001; 82140; 82550; 82565; 82803; 82962; 83735; 84100; 84134; 84443; 85025; 87040; 87070; 87077; 87186; 87205; 93971; 94640; 94667; 94799; 96360; 96372; 99285; G8978-GP; G8979-GP; G8980-GP; G8987-GO; G8988-GO; G8989-GO; J1644; J1815; J2060; J3370; J3411; J3490; J7030; J7050; J7060; J7620

== ENCOUNTER 2017-05-10 02:24 | Inpatient (IN) | payer MEDICARE, BC, OTHER ==
[2017-05-10] MEDS ORDERED: NORMAL SALINE 1000 ML 1,000 ML IV ONE (02:41)
--- NOTE | 2017-05-10 02:44 | ER Document Report ---
ED General - General Chief Complaint: High Blood Sugar Stated Complaint: POSSIBLE SYNCOPAL EPISODE Time Seen by Provider: 05/10/17 02:33 Notes: Patient is a 71-year-old female who comes emergency department by EMS for chief complaint of fall, she states she was drinking alcohol tonight, states she got out of bed and fell onto the floor, she reports pain in her neck and pain in her right hip area. She denies getting knocked down or vomiting. She also states she thinks her blood sugar is high and she is very thirsty. EMS reports her initial oxygen saturation was about 60% on room air, she was given 3 DuoNeb treatments in route. She denies fever, chest pain, vomiting. Past medical history of alcohol abuse, tobacco abuse, COPD, insulin-dependent diabetes, medication noncompliance. TRAVEL OUTSIDE OF THE [place] IN LAST 30 DAYS: No - Related Data Allergies/Adverse Reactions: valsartan [From Diovan] Allergy (Unknown, Verified 05/10/17 02:53) Penicillins Allergy (Verified 05/10/17 02:53) exenatide [From Byetta] Adverse Reaction (Severe, Verified 05/10/17 02:53) Migraine Past Medical History - General Information source: Patient - Social History Smoking Status: Current Every Day Smoker Smoking Education Provided: Yes - <3 min Frequency of alcohol use: Heavy Drug Abuse: None Lives with: Alone Family History: CAD, Malignancy - Throat cancer, Other - Alzheimer's - Past Medical History Cardiac Medical History: Reports: Hx Hypercholesterolemia, Hx Hypertension, Hx Peripheral Vascular Disease Denies: Hx Atrial Fibrillation, Hx Congestive Heart Failure, Hx Pulmonary Embolism Pulmonary Medical History: Reports: Hx Asthma, Hx Bronchitis, Hx COPD Endocrine Medical History: Reports: Hx Diabetes Mellitus Type 1, Hx Diabetes Mellitus Type 2 Renal/ Medical History: Denies: Hx Peritoneal Dialysis Psychiatric Medical History: Reports: Hx Depression Past Surgical History: Reports: Hx Adenoidectomy, Hx Orthopedic Surgery - Patient has had both left and right hip fracture repairs secondary to falls, Hx Tonsillectomy, Other - Cataract, left great toe amputation - Immunizations Hx Diphtheria, Pertussis, Tetanus Vaccination: Yes Hx Pneumococcal Vaccination: 05/24/11 Review of Systems - Review of Systems Constitutional: See HPI EENT: No symptoms reported Cardiovascular: See HPI Respiratory: See HPI Gastrointestinal: No symptoms reported Genitourinary: No symptoms reported Female Genitourinary: No symptoms reported Musculoskeletal: See HPI Skin: No symptoms reported Hematologic/Lymphatic: No symptoms reported Neurological/Psychological: See HPI Physical Exam - Vital signs Vitals: Resp 14 05/10/17 02:28 Interpretation: Normal - General General appearance: Other - Patient mildly anxious with tachypnea and mild respiratory distress In distress: Mild - HEENT Head: Normocephalic, Atraumatic Eyes: Normal Conjunctiva: Normal Extraocular movements intact: Yes Eyelashes: Normal Pupils: PERRL Nasal: Normal Mouth/Lips: Normal Mucous membranes: Normal Pharynx: Normal Neck: Normal - Respiratory Respiratory status: Respiratory distress, Labored, Tachypnea Chest status: Nontender Breath sounds: Decreased air movement, Nonproductive cough, Wheezing Chest palpation: Normal - Cardiovascular Rhythm: Regular. No: Tachycardia Heart sounds: Normal auscultation, S1 appreciated, S2 appreciated Murmur: No - Abdominal Inspection: Normal Distension: No distension Bowel sounds: Normal Tenderness: Nontender. No: Tender, Guarding Organomegaly: No organomegaly - Back Back: Normal, Nontender. No: Tender, Vertebra tenderness - Extremities General upper extremity: Normal inspection, Nontender, Normal strength, Normal temperature General lower extremity: Other - Left lower extremity with abrasions and surrounding erythema and abnormal heat located over the mid anterior tibial area. No induration or fluctuance, no draining noted. Normal lower extremity exam otherwise.. No: Edema - Neurological Neuro grossly intact: Yes Cognition: Normal Orientation: AAOx4. 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 Patient was placed on BiPAP because of the hypoxia and respiratory distress. Afterwards she improved significantly, heart rate improved, pulse oxygenation improved, tachypnea resolved. Patient became more calm, more alert, she is able to answer all questions appropriately. CBC shows mild leukocytosis with elevation of neutrophils but no bandemia. Patient does not have a fever. Chest x-ray questionable for pneumonia. Venous blood gas shows hypercarbia with CO2 of 72. Patient will remain on BiPAP. Chemistry shows marked hyperglycemia but no acidosis. PH is not abnormal on blood gas. On examination patient also has cellulitis of the left lower extremity. Because of hyperglycemia, respiratory distress requiring BiPAP, possible pneumonia, and BiPAP will discuss for admission. Patient states agreement with this plan. Discussed with Dr. Anton, internal medicine, patient will be admitted to the [facility]. - Vital Signs Vital signs: Temp Pulse Resp BP Pulse Ox 98.7 F 27 H 146/95 H 100 05/10/17 04:32 05/10/17 04:32 05/10/17 04:32 05/10/17 04:32 - Laboratory Result Diagrams: 05/10/17 03:00 05/10/17 03:00 Laboratory results interpreted by me: 05/10/17 05/10/17 05/10/17 02:32 03:00 03:00 WBC 12.7 H Hgb 11.1 L MCHC 30.6 L RDW 17.7 H Absolute Neutrophils 8.5 H VBG pCO2 VBG HCO3 Sodium 130.5 L Chloride 89 L Carbon Dioxide 33 H Est GFR (Non-Af Amer) 52 L Glucose 611 H* POC Glucose > 550 H* Calcium 8.2 L AST 11 L Alkaline Phosphatase 149 H Total Protein 5.4 L Albumin 2.7 L Urine Protein Urine Glucose (UA) Urine Blood 05/10/17 05/10/17 03:00 03:45 WBC Hgb MCHC RDW Absolute Neutrophils VBG pCO2 72.0 H* VBG HCO3 37.7 H Sodium Chloride Carbon Dioxide Est GFR (Non-Af Amer) Glucose POC Glucose Calcium AST Alkaline Phosphatase Total Protein Albumin Urine Protein >=500 H Urine Glucose (UA) >=500 H Urine Blood MODERATE H Discharge - Discharge Clinical Impression: COPD exacerbation Fall Qualifiers: Encounter type: initial encounter Qualified Code(s): W19.XXXA - Unspecified fall, initial encounter Pneumonia Qualifiers: Pneumonia type: due to unspecified organism Laterality: unspecified laterality Lung location: unspecified part of lung Qualified Code(s): J18.9 - Pneumonia, unspecified organism Cellulitis Qualifiers: Site of cellulitis: extremity Site of cellulitis of extremity: lower extremity Laterality: left Qualified Code(s): L03.116 - Cellulitis of left lower limb Condition: Stable Disposition: ADMITTED INPATIENT Admitting Provider: Hospitalist Unit Admitted: [facility]
[2017-05-10 03:18] LABS: ABSOLUTE BASOPHILS # (AUTO) 0.1 10^3/uL (0.0-0.2); ABSOLUTE EOSINOPHILS # (AUTO) 0.6 10^3/uL (0.0-0.6); ABSOLUTE LYMPHOCYTES (AUTO) 2.7 10^3/uL (0.5-4.7); ABSOLUTE MONOCYTES (AUTO) 0.8 10^3/uL (0.1-1.4); ABSOLUTE NEUT (AUTO) 8.5 10^3/uL (1.7-8.2); BASOPHILS % (AUTO) 1.1 % (0-2); EOSINOPHILS % (AUTO) 4.7 % (0-6); HEMATOCRIT 36.4 % (36.0-47.0); HEMOGLOBIN 11.1 g/dL (12.0-15.5); LYMPHOCYTES % (AUTO) 21.2 % (13-45); MEAN CORPUSCULAR HEMOGLOBIN 27.3 pg (27.0-33.4); MEAN CORPUSCULAR HGB CONC 30.6 g/dL (32.0-36.0); MEAN CORPUSCULAR VOLUME 89 fl (80-97); MONOCYTES % (AUTO) 6.1 % (3-13); PLATELET COUNT 394 10^3/uL (150-450); RED BLOOD COUNT 4.08 10^6/uL (3.72-5.28); RED CELL DISTRIBUTION WIDTH 17.7 % (11.5-14.0); SEGMENTED NEUTROPHILS % (AUTO) 66.9 % (42-78); TOTAL CELLS COUNTED % (AUTO) 100 %; WHITE BLOOD COUNT 12.7 10^3/uL (4.0-10.5)
--- NOTE | 2017-05-10 03:27 | RADIOLOGY REPORT (SQ) ---
EXAM DESCRIPTION: CT HEAD WITHOUT CLINICAL HISTORY: fall, head/neck pain, ETOH COMPARISON: 06/12/2016 TECHNIQUE: Axial CT of the head obtained from the skull apex to the skull base without contrast. FINDINGS: No acute intracranial hemorrhage identified. No mass, mass effect, shift of the midline, abnormal extra-axial fluid collection or CT evidence of acute ischemic change identified. The ventricular system and sulcal spaces are mildly enlarged compatible with mild cerebral atrophy. Scattered areas of hypodensity throughout the supratentorial white matter are nonspecific and may be related to chronic small vessel ischemic change. The visualized paranasal sinuses and the mastoids are clear. No skull fracture identified. Visualized orbits and globes are unremarkable. Atherosclerotic calcification of the intracranial internal carotid arteries. DLP: 1162.97 mGy-cm IMPRESSION: 1. No acute intracranial abnormality by CT criteria. This exam was performed according to our departmental dose-optimization program, which includes automated exposure control, adjustment of the mA and/or kV according to patient size and/or use of iterative reconstruction technique.
[2017-05-10 03:29] LABS: VENOUS BLOOD BASE EXCESS 9.5 mmol/L; VENOUS BLOOD HCO3 37.7 mmol/L (20-32); VENOUS BLOOD PH 7.34 (7.30-7.42)
--- NOTE | 2017-05-10 03:31 | RADIOLOGY REPORT (SQ) ---
EXAM DESCRIPTION: CT CERVICAL SPINE WITHOUT CLINICAL HISTORY: fall, head/neck pain, ETOH COMPARISON: 04/26/2016 TECHNIQUE: Axial CT of the cervical spine obtained without contrast. FINDINGS: Alignment of the cervical spine is maintained without evidence of subluxation. The atlantoaxial, atlantodental, and occipitoatlantal intervals are preserved. No fracture identified. Vertebral body height preserved. Prevertebral soft tissues are unremarkable. Mild endplate spondylosis and uncovertebral spurring without significant central canal nor neural foraminal narrowing. Facet arthropathy. Intervertebral disc height is relatively well-preserved. Degenerative changes of the atlantodental articulation. Visualized skull base is intact. No fracture of the visualized facial bones. Visualized mastoid air cells and paranasal sinuses are well aerated. Visualized thyroid is unremarkable. No cervical lymphadenopathy. No pneumothorax in the visualized lung apices. Centrilobular emphysematous changes. Atherosclerotic calcification of the internal carotid arteries. DLP: 835.62 mGy-cm IMPRESSION: 1. No acute fracture or subluxation of the cervical spine. This exam was performed according to our departmental dose-optimization program, which includes automated exposure control, adjustment of the mA and/or kV according to patient size and/or use of iterative reconstruction technique.
--- NOTE | 2017-05-10 03:35 | RADIOLOGY REPORT (SQ) ---
EXAM DESCRIPTION: CHEST SINGLE VIEW CLINICAL HISTORY: hypoxia, cough COMPARISON: 04/27/2017 FINDINGS: Single frontal view of the chest. Atherosclerotic calcification aortic arch. Heart is not enlarged. Pulmonary vascular congestion with mild interstitial edema. No pneumothorax. Unchanged configuration of the right humerus. Upper abdominal soft tissues are unremarkable. IMPRESSION: 1. Interval increase in bilateral interstitial opacities which may be related to pulmonary edema.
--- NOTE | 2017-05-10 03:37 | RADIOLOGY REPORT (SQ) ---
EXAM DESCRIPTION: HIP RIGHT AP/LATERAL CLINICAL HISTORY: fall, pain COMPARISON: 06/12/2016 FINDINGS: Single view of the pelvis and lateral view of the right hip. Bilateral intramedullary emma and screw fixation of the hips. Mild bilateral hip joint space narrowing. No acute fractures identified. Mild osteopenia. Degenerative change of the spine. IMPRESSION: 1. No acute fracture identified.
[2017-05-10 03:46] LABS: ALANINE AMINOTRANSFERASE 33 U/L (9-52); ALBUMIN 2.7 g/dL (3.5-5.0); ALKALINE PHOSPHATASE 149 U/L (38-126); ANION GAP 9 (5-19); ASPARTATE AMINO TRANSFERASE 11 U/L (14-36); BILIRUBIN,DIRECT 0.2 mg/dL (0.0-0.4); BILIRUBIN,TOTAL 0.2 mg/dL (0.2-1.3); BLOOD UREA NITROGEN 12 mg/dL (7-20); CALCIUM 8.2 mg/dL (8.4-10.2); CARBON DIOXIDE 33 mmol/L (22-30); CHLORIDE 89 mmol/L (98-107); CREATINE KINASE 32 U/L (30-135); POTASSIUM 4.1 mmol/L (3.6-5.0); SODIUM 130.5 mmol/L (137-145); TOTAL PROTEIN 5.4 g/dL (6.3-8.2)
[2017-05-10 03:51] LABS: ALCOHOL < 10 mg/dL (NONE DETECTED)
[2017-05-10 04:03] LABS: GLUCOSE 611 mg/dL (75-110)
[2017-05-10] MEDS ORDERED: NORMAL SALINE 1000 ML 3,000 ML IV ONE (04:14)
[2017-05-10] MEDS ORDERED: GLUCAGON,HUMAN RECOMB 1 MG INJ IM PRN ×3 (04:14→16:45)
[2017-05-10] MEDS ORDERED: DEXTROSE 50%-WATER 25 GM/50 ML DISP.SYRIN IV PRN ×6 (04:14→16:45)
[2017-05-10] MEDS ORDERED: NORMAL SALINE 100 ML with INSULIN REGULAR, HUMAN 100 UNIT IV PRN ×2 (04:14)
[2017-05-10] MEDS ORDERED: DEXTROSE 40% GEL 15 GM TUBE PO PRN ×6 (04:14→16:45)
[2017-05-10] MEDS ORDERED: FLUCONAZOLE 400 MG/NS RTU 400 MG/200 ML RTUPB IV ONE ×2 (04:15→06:00)
[2017-05-10 04:19] LABS: APPEARANCE,URINE CLEAR; BILIRUBIN,URINE NEGATIVE (NEGATIVE); COLOR,URINE YELLOW; GLUCOSE, URINE >=500 mg/dL (NEGATIVE); KETONES,URINE NEGATIVE (NEGATIVE); LEUKOCYTE ESTERASE,URINE NEGATIVE (NEGATIVE); NITRITE,URINE NEGATIVE (NEGATIVE); PROTEIN,URINE >=500 mg/dL (NEGATIVE); URINE SPECIFIC GRAVITY 1.028; UROBILINOGEN,URINE NEGATIVE mg/dL (<2.0)
[2017-05-10] MEDS ORDERED: PREDNISONE 20 MG TABLET PO ONE (04:26)
[2017-05-10] MEDS ORDERED: INSULIN REG, HUMAN 100 UNIT/ML 3 ML VIAL (PYX) IV ONE ×2 (04:26→21:15)
[2017-05-10] MEDS ORDERED: DIAZEPAM 5 MG TABLET PO SCH (04:30)
[2017-05-10] MEDS ORDERED: METHYLPREDNISOLONE INJ 125 MG/2 ML SDV IV SCH ×2 (04:30→14:00)
[2017-05-10] MEDS ORDERED: LEVALBUTEROL HCL NEB 1.25 MG/3 ML AMPUL NEB PRN ×2 (04:30→14:00)
[2017-05-10] MEDS ORDERED: ACETAMINOPHEN 325 MG TABLET PO PRN (04:30)
[2017-05-10 04:35] LABS: URINE AMPHETAMINES SCREEN NEGATIVE; URINE BARBITURATES SCREEN NEGATIVE; URINE BENZODIAZEPINES SCREEN UNCONFIRMED POSITIVE; URINE COCAINE SCREEN NEGATIVE; URINE MARIJUANA (THC) SCREEN NEGATIVE; URINE METHADONE SCREEN NEGATIVE; URINE PHENCYCLIDINE SCREEN NEGATIVE
--- NOTE | 2017-05-10 04:50 | PDOC H&P ---
History of Present Illness Admission Date/PCP: 05/10/2017 Dr. Condon History of Present Illness: VIVEK MAGUIRE is a 71 year old female with past medical history of insulin-dependent diabetes mellitus, COPD, alcoholism, tobacco abuse, who presents to the emergency department after falling out of her bed. Patient was found by the EMS service to be hypoxic to the 60s. She was given several DuoNeb treatments and placed on BiPAP. Patient was initially confused, but improved while on BiPAP. Patient reports that she is thirsty. She is unable really to give me much history. She does report that her last drink was at approximately 9:00 tonight. She is Risser referred to the hospitalist service for COPD exacerbation, acute hypoxemic respiratory failure, right lower extremity cellulitis. Patient's medications are currently undergoing reconciliation. Current list is automatically generated by [employer] and does not reflect an accurate description of her medications. Due to the urgent/emergent nature of her condition, she is admitted without a full list. Past Medical History Cardiac Medical History: Reports: Hyperlipidema, Hypertension, Peripheral Vascular Disease Denies: Atrial Fibrillation, Congestive Heart Failure, Pulmonary Embolism Pulmonary Medical History: Reports: Asthma, Bronchitis, Chronic Obstructive Pulmonary Disease (COPD) Endocrine Medical History: Reports: Diabetes Mellitus Type 2 Psychiatric Medical History: Reports: Alcohol Dependency, Depression, Tobacco Dependency Hematology: Denies: Bleeding Tendencies Past Surgical History Past Surgical History: Reports: Adenoidectomy, Orthopedic Surgery - Patient has had both left and right hip fracture repairs secondary to falls, Tonsillectomy, Other - Cataract, left great toe amputation Social History Smoking Status: Current Every Day Smoker Cigarettes Packs Per Day: 1 Frequency of Alcohol Use: Heavy Hx Recreational Drug Use: No Drugs: None Hx Prescription Drug Abuse: No - Advance Directive Resuscitation Status: Full Code Surrogate healthcare decision maker:: Jon Joseph, [employer]ank skinner Family History Family History: CAD, Malignancy - Throat cancer, Other - Alzheimer's Parental Family History Reviewed: Yes Children Family History Reviewed: Yes Sibling(s) Family History Reviewed.: Yes Medication/Allergy Home Medications: Amitriptyline HCl [Elavil 25 mg Tablet] 25 mg PO Q8HP PRN 04/27/17 Atorvastatin Calcium [Lipitor 10 mg Tablet] 10 mg PO QHS 04/27/17 Cholecalciferol (Vitamin D3) [Vitamin D3 5000 unit Capsule] 5,000 unit PO DAILY 04/27/17 Diazepam [Valium 5 mg Tablet] 5 mg PO QHS 04/27/17 Duloxetine HCl [Cymbalta] 60 mg PO DAILY 04/27/17 Ferrous Sulfate [Feosol 325 mg Tablet] 325 mg PO DAILY 04/27/17 Hydroxyzine HCl [Atarax 25 mg Tablet] 25 mg PO HSP PRN 04/27/17 Insulin Glargine,Hum.rec.anlog [Lantus Solostar] 40 unit SQ BID 04/27/17 Metformin HCl [Glucophage] 1,000 mg PO BID 04/27/17 Ramipril [Altace 10 mg Capsule] 10 mg PO DAILY 04/27/17 Rivaroxaban [Xarelto] 10 mg PO QHS 04/27/17 Cefuroxime Axetil [Ceftin 500 mg Tablet] 500 mg PO Q12 #14 tablet 05/01/17 Allergies/Adverse Reactions: valsartan [From Diovan] Allergy (Unknown, Verified 05/10/17 02:53) Penicillins Allergy (Verified 05/10/17 02:53) exenatide [From Byetta] Adverse Reaction (Severe, Verified 05/10/17 02:53) Migraine Review of Systems ROS unobtainable: Due to mental status Physical Exam Vital Signs: Temp Pulse Resp BP Pulse Ox 97.4 F 28 H 173/76 H 97 05/10/17 02:41 05/10/17 03:34 05/10/17 03:34 05/10/17 03:34 Intake & Output 05/08/17 05/09/17 05/10/17 06:59 06:59 06:59 Weight 71 kg General appearance: PRESENT: mild distress, well-developed, well-nourished Head exam: PRESENT: atraumatic, normocephalic Eye exam: PRESENT: conjunctiva pink, EOMI, periorbital swelling, PERRLA. ABSENT : conjunctival injection, scleral icterus Ear exam: PRESENT: normal external ear exam Mouth exam: PRESENT: dry mucosa, tongue midline Neck exam: ABSENT: JVD, lymphadenopathy, thyromegaly, tracheal deviation Respiratory exam: PRESENT: accessory muscle use, rhonchi, symmetrical, tachypnea , unlabored, wheezes. ABSENT: decreased breath sounds, rales Cardiovascular exam: PRESENT: RRR, +S1, +S2, systolic murmur. ABSENT: diastolic murmur, rubs Pulses: PRESENT: normal dorsalis pedis pul Vascular exam: PRESENT: normal capillary refill GI/Abdominal exam: PRESENT: normal bowel sounds, soft. ABSENT: distended, guarding, mass, organolmegaly, rebound, rigid, tenderness Rectal exam: PRESENT: deferred Gentrourinary exam: PRESENT: other - Intertrigo Extremities exam: PRESENT: full ROM, +1 edema. ABSENT: calf tenderness, clubbing Musculoskeletal exam: PRESENT: deformity - Left lower extremity missing first great toe, Charcot foot Neurological exam: PRESENT: alert, altered - Intoxicated, awake, oriented to person, oriented to place, oriented to time, oriented to situation, CN II-XII grossly intact. ABSENT: motor sensory deficit Psychiatric exam: PRESENT: appropriate affect, normal mood. ABSENT: homicidal ideation, suicidal ideation Skin exam: PRESENT: dry, intact, warm. ABSENT: cyanosis, rash Results Laboratory Results: 05/10/17 03:00 05/10/17 03:00 05/10/17 05/10/17 05/10/17 03:00 03:00 03:00 WBC 12.7 H RBC 4.08 Hgb 11.1 L Hct 36.4 MCV 89 MCH 27.3 MCHC 30.6 L RDW 17.7 H Plt Count 394 Seg Neutrophils % 66.9 Lymphocytes % 21.2 Monocytes % 6.1 Eosinophils % 4.7 Basophils % 1.1 Absolute Neutrophils 8.5 H Absolute Lymphocytes 2.7 Absolute Monocytes 0.8 Absolute Eosinophils 0.6 Absolute Basophils 0.1 VBG pH 7.34 VBG pCO2 72.0 H* VBG HCO3 37.7 H VBG Base Excess 9.5 Sodium 130.5 L Potassium 4.1 Chloride 89 L Carbon Dioxide 33 H Anion Gap 9 BUN 12 Creatinine 1.04 Est GFR ( Amer) > 60 Est GFR (Non-Af Amer) 52 L Glucose 611 H* Calcium 8.2 L Total Bilirubin 0.2 AST 11 L ALT 33 Alkaline Phosphatase 149 H Total Protein 5.4 L Albumin 2.7 L Urine Color Urine Appearance Urine pH Ur Specific [place] Urine Protein Urine Glucose (UA) Urine Ketones Urine Blood Urine Nitrite Ur Leukocyte Esterase Urine WBC (Auto) Urine RBC (Auto) 05/10/17 03:45 WBC RBC Hgb Hct MCV MCH MCHC RDW Plt Count Seg Neutrophils % Lymphocytes % Monocytes % Eosinophils % Basophils % Absolute Neutrophils Absolute Lymphocytes Absolute Monocytes Absolute Eosinophils Absolute Basophils VBG pH VBG pCO2 VBG HCO3 VBG Base Excess Sodium Potassium Chloride Carbon Dioxide Anion Gap BUN Creatinine Est GFR ( Amer) Est GFR (Non-Af Amer) Glucose Calcium Total Bilirubin AST ALT Alkaline Phosphatase Total Protein Albumin Urine Color YELLOW Urine Appearance CLEAR Urine pH 6.0 Ur Specific [place] 1.028 Urine Protein >=500 H Urine Glucose (UA) >=500 H Urine Ketones NEGATIVE Urine Blood MODERATE H Urine Nitrite NEGATIVE Ur Leukocyte Esterase NEGATIVE Urine WBC (Auto) 6 Urine RBC (Auto) 18 05/10/17 05/10/17 03:00 03:00 Creatine Kinase 32 Troponin I 0.024 Impressions: Cervical Spine CT 05/10/17 02:40 IMPRESSION: 1. No acute fracture or subluxation of the cervical spine. This exam was performed according to our departmental dose-optimization program, which includes automated exposure control, adjustment of the mA and/or kV according to patient size and/or use of iterative reconstruction technique. Chest X-Ray 05/10/17 02:40 IMPRESSION: 1. Interval increase in bilateral interstitial opacities which may be related to pulmonary edema. Head CT 05/10/17 02:40 IMPRESSION: 1. No acute intracranial abnormality by CT criteria. This exam was performed according to our departmental dose-optimization program, which includes automated exposure control, adjustment of the mA and/or kV according to patient size and/or use of iterative reconstruction technique. Hip/Pelvis X-Ray 05/10/17 02:42 IMPRESSION: 1. No acute fracture identified. Status: Imported from PACS Assessment & Plan - Diagnosis (1) COPD exacerbation Is this a current diagnosis for this admission?: Yes Plan: Place patient on scheduled nebulized treatments and re-evaluate for improvement. PRN Xopenex Place patient on IV Solu-Medrol Obtain sputum culture Encourage smoking cessation (2) Cellulitis Qualifiers: Site of cellulitis: extremity Site of cellulitis of extremity: lower extremity Laterality: left Qualified Code(s): L03.116 - Cellulitis of left lower limb Is this a current diagnosis for this admission?: Yes Plan: Based on patient's past culture of MSSA will initiate on Levaquin (3) Pneumonia Qualifiers: Pneumonia type: due to unspecified organism Laterality: unspecified laterality Lung location: unspecified part of lung Qualified Code(s): J18.9 - Pneumonia, unspecified organism Is this a current diagnosis for this admission?: Yes Plan: Patient appears to have a bilateral multilobar pneumonia. Will initiate patient on Levaquin and Rocephin. Scheduled nebulized treatments. Obtain sputum culture. (4) Acute respiratory failure with hypoxemia Is this a current diagnosis for this admission?: Yes Plan: Continue BiPAP or oxygen to maintain saturation patient greater than 88-92 (5) Fall Qualifiers: Encounter type: initial encounter Qualified Code(s): W19.XXXA - Unspecified fall, initial encounter Is this a current diagnosis for this admission?: Yes Plan: X-rays and CTs have been negative in the ER. Will check a CPK. (6) Acute metabolic encephalopathy Is this a current diagnosis for this admission?: Yes Plan: Improving. Likely secondary to alcohol abuse and hypercapnia (7) Alcohol abuse Is this a current diagnosis for this admission?: Yes Plan: Monitor patient on telemetry for arrhythmia. Check magnesium. Scheduled po Valium. PRN IV Ativan for withdrawal symptoms. Place on thiamine, folic acid. Monitor for worsening symptomatology (8) Anemia Qualifiers: Anemia type: unspecified type Qualified Code(s): D64.9 - Anemia, unspecified Is this a current diagnosis for this admission?: Yes (9) Continuous tobacco abuse Is this a current diagnosis for this admission?: Yes Plan: Nicotine patch Patient is advised to stop using tobacco. (10) DVT prophylaxis Is this a current diagnosis for this admission?: Yes Plan: Lovenox (11) Depression Qualifiers: Depression Type: unspecified Qualified Code(s): F32.9 - Major depressive disorder, single episode, unspecified Is this a current diagnosis for this admission?: Yes (12) Diabetes type 2, uncontrolled Qualifiers: Diabetes mellitus complication status: with hyperglycemia Diabetes mellitus fdc insulin use: with fdc use Qualified Code(s): E11.65 - Type 2 diabetes mellitus with hyperglycemia; Z79.4 - intermediate (current) use of insulin; Z79.4 - joint terminal attack controller (current) use of insulin; Z79.4 - joint terminal attack controller ( current) use of insulin; Z79.4 - joint terminal attack controller (current) use of insulin Is this a current diagnosis for this admission?: Yes Plan: Place patient on insulin drip. She will require require increased glycemic control due to the use of corticosteroids in the setting of uncontrolled diabetes mellitus (13) Peripheral vascular disease Is this a current diagnosis for this admission?: Yes - Time Time Spent: 50 to 70 Minutes Medications reviewed and adjusted accordingly: Yes Anticipated discharge: Home with Homehealth - Inpatient Certification Based on my medical assessment, after consideration of the patient's comorbidities, presenting symptoms, or acuity I expect that the services needed warrant INPATIENT care.: Yes I certify that my determination is in accordance with my understanding of Medicare's requirements for reasonable and necessary INPATIENT services [42 CFR 412.3e].: Yes Medical Necessity: Need For IV Fluids, Need for Nebulizer Therapy and Monitoring of Response, Need for IV Antibiotics Post Hospital Care: D/C [employer] Documentation
[2017-05-10] MEDS: LORAZEPAM INJ 2 MG/1 ML VIAL IV PRN ×2 (04:59→11:48)
[2017-05-10] MEDS ORDERED: LEVOFLOXACIN 750 MG/D5W RTU 750 MG/150 ML RTUPB IV ONE (05:00)
[2017-05-10] MEDS ORDERED: INSULIN REG, HUMAN 100 UNIT/ML 3 ML VIAL (PYX) ONE ×2 (05:20→21:15)
[2017-05-10 05:50] LABS: MAGNESIUM 1.5 mg/dL (1.6-2.3)
[2017-05-10] MEDS ORDERED: LANSOPRAZOLE 15 MG TAB.RAP.DR PO SCH (06:00)
[2017-05-10 07:16] LABS: APPEARANCE,URINE CLEAR; BILIRUBIN,URINE NEGATIVE (NEGATIVE); COLOR,URINE STRAW; GLUCOSE, URINE >=500 mg/dL (NEGATIVE); KETONES,URINE NEGATIVE (NEGATIVE); LEUKOCYTE ESTERASE,URINE NEGATIVE (NEGATIVE); NITRITE,URINE NEGATIVE (NEGATIVE); PROTEIN,URINE >=500 mg/dL (NEGATIVE); URINE SPECIFIC GRAVITY 1.025; UROBILINOGEN,URINE NEGATIVE mg/dL (<2.0)
--- NOTE | 2017-05-10 07:49 | EKG REPORT ---
SEVERITY:- ABNORMAL ECG - SINUS TACHYCARDIA CONSIDER ANTEROSEPTAL INFARCT NONSPECIFIC T ABNORMALITIES, LATERAL LEADS : Confirmed by: Isma Cohen MD 10-May-2017 07:48:22
[2017-05-10] MEDS: NORMAL SALINE 1000 ML 1,000 ML IV PRN ×2 (07:57→20:38)
[2017-05-10] MEDS: IPRATROPIUM/ALBUTEROL 0.5-2.5 MG/3 ML AMPUL NEB SCH ×3 (08:30→19:56)
[2017-05-10 08:45] LABS: ANION GAP 8 (5-19); BLOOD UREA NITROGEN 10 mg/dL (7-20); CALCIUM 7.3 mg/dL (8.4-10.2); CARBON DIOXIDE 27 mmol/L (22-30); CHLORIDE 98 mmol/L (98-107); GLUCOSE 306 mg/dL (75-110); POTASSIUM 3.5 mmol/L (3.6-5.0); SODIUM 132.9 mmol/L (137-145)
[2017-05-10] MEDS ORDERED: GUAIFENESIN 600 MG TABLET.SA PO SCH (10:00)
[2017-05-10] MEDS ORDERED: ENOXAPARIN SODIUM INJ 40 MG/0.4 ML DISP.SYRIN SUBCUT SCH (10:00)
[2017-05-10] MEDS ORDERED: FOLIC ACID 1 MG TABLET PO SCH (10:00)
[2017-05-10] MEDS ORDERED: NICOTINE 21 MG/24 HR PATCH.TD24 TD PRN (10:58)
[2017-05-10] MEDS: MAGNESIUM SULFATE/D5W 1 GM/100 ML RTUPB IV SCH ×2 (11:28→15:40)
[2017-05-10] MEDS: CEFTRIAXONE 1 GM/D5W RTU 1 GM/50 ML RTUPB IV SCH (11:31)
[2017-05-10] MEDS: THIAMINE HCL 100 MG TABLET PO SCH (11:33)
[2017-05-10] MEDS ORDERED: INSULIN REG, HUMAN 100 UNIT/ML 3 ML VIAL (PYX) SUBCUT PRN (12:32)
[2017-05-10] MEDS ORDERED: AMITRIPTYLINE HCL 25 MG TABLET PO PRN (12:34)
[2017-05-10] MEDS: POTASSI CL 20 MEQ/50 ML RIDER 20 MEQ/50 ML RTUPB IV SCH ×2 (12:49→15:39)
[2017-05-10 13:08] LABS: ANION GAP 7 (5-19); BLOOD UREA NITROGEN 11 mg/dL (7-20); CALCIUM 7.3 mg/dL (8.4-10.2); CARBON DIOXIDE 29 mmol/L (22-30); CHLORIDE 97 mmol/L (98-107); GLUCOSE 309 mg/dL (75-110); POTASSIUM 3.9 mmol/L (3.6-5.0); SODIUM 133.3 mmol/L (137-145)
[2017-05-10] MEDS: LORAZEPAM 1 MG TABLET PO SCH ×2 (14:02→17:26)
[2017-05-10] MEDS: NYSTATIN TOPICAL POWDER 15 GM TP SCH ×2 (14:32→18:12)
[2017-05-10] MEDS: FLUCONAZOLE 200 MG/NS RTU 100 ML IV SCH (14:41)
[2017-05-10] MEDS ORDERED: INSULIN GLARGINE,HUM.REC.ANLOG 1,000 UNIT/10 ML UNIT SUBCUT ONE (16:43)
[2017-05-10] MEDS ORDERED: INSULIN LISPRO 100 UNIT/ML 3 ML VIAL SUBCUT ONE (16:44)
[2017-05-10] MEDS ORDERED: AMLODIPINE BESYLATE 10 MG TABLET PO ONE (17:00)
[2017-05-10 17:07] LABS: ANION GAP 10 (5-19); BLOOD UREA NITROGEN 16 mg/dL (7-20); CALCIUM 7.3 mg/dL (8.4-10.2); CARBON DIOXIDE 26 mmol/L (22-30); CHLORIDE 94 mmol/L (98-107); POTASSIUM 4.5 mmol/L (3.6-5.0)
[2017-05-10 17:22] LABS: GLUCOSE 610 mg/dL (75-110)
[2017-05-10] MEDS: LANSOPRAZOLE 15 MG TAB.RAP.DR PO SCH (17:26)
[2017-05-10] MEDS: METHYLPREDNISOLONE INJ 125 MG/2 ML SDV IV SCH (17:26)
[2017-05-10] MEDS: NYSTATIN CREAM 15 GM TP SCH (18:12)
--- NOTE | 2017-05-10 19:09 | PDOC PROGRESS REPORT ---
Subjective Progress Note for:: 05/10/17 Subjective:: 71 yr old female with heavy alcohol and nicotine use who presented to the hospital with dyspnea. Diagnosed with right lower extremity cellulitis and pneumonia and started on antibiotics. She was also started on steroids for COPD exacerbation. Reason For Visit: COPD EXACERBATION, HYPERGLYCEMIA, LEFT LOWER Physical Exam Vital Signs: Temp Pulse Resp BP Pulse Ox 98.4 F 91 24 H 168/75 H 94 05/10/17 15:56 05/10/17 15:56 05/10/17 15:56 05/10/17 15:56 05/10/17 16:21 Intake & Output 05/09/17 05/10/17 05/11/17 06:59 06:59 06:59 Intake Total 4005 Output Total 1250 Balance 2755 Weight 75.4 kg Additional comments: Elderly female in bed not in acute distress Lungs: Wheezing bilaterally no crackles normal respiratory effort Cardiac: S1-S2 regular no cyanosis no thrills palpable Abdomen: Soft, no focal tenderness normal bowel sounds Results Laboratory Results: 05/10/17 16:25 05/10/17 05/10/17 05/10/17 05:15 06:40 07:58 Sodium 132.9 L Potassium 3.5 L Chloride 98 Carbon Dioxide 27 Anion Gap 8 BUN 10 Creatinine 0.81 Est GFR ( Amer) > 60 Est GFR (Non-Af Amer) > 60 Glucose 306 H Calcium 7.3 L Magnesium 1.5 L Urine Color STRAW Urine Appearance CLEAR Urine pH 7.0 Ur Specific [place] 1.025 Urine Protein >=500 H Urine Glucose (UA) >=500 H Urine Ketones NEGATIVE Urine Blood MODERATE H Urine Nitrite NEGATIVE Ur Leukocyte Esterase NEGATIVE Urine WBC (Auto) 6 Urine RBC (Auto) 13 05/10/17 05/10/17 12:05 16:25 Sodium 133.3 L 130.0 L Potassium 3.9 4.5 Chloride 97 L 94 L Carbon Dioxide 29 26 Anion Gap 7 10 BUN 11 16 Creatinine 0.88 0.91 Est GFR ( Amer) > 60 > 60 Est GFR (Non-Af Amer) > 60 > 60 Glucose 309 H 610 H* Calcium 7.3 L 7.3 L Magnesium Urine Color Urine Appearance Urine pH Ur Specific [place] Urine Protein Urine Glucose (UA) Urine Ketones Urine Blood Urine Nitrite Ur Leukocyte Esterase Urine WBC (Auto) Urine RBC (Auto) 05/10/17 05:15 Creatine Kinase 23 L Impressions: Cervical Spine CT 05/10/17 02:40 IMPRESSION: 1. No acute fracture or subluxation of the cervical spine. This exam was performed according to our departmental dose-optimization program, which includes automated exposure control, adjustment of the mA and/or kV according to patient size and/or use of iterative reconstruction technique. Chest X-Ray 05/10/17 02:40 IMPRESSION: 1. Interval increase in bilateral interstitial opacities which may be related to pulmonary edema. Head CT 05/10/17 02:40 IMPRESSION: 1. No acute intracranial abnormality by CT criteria. This exam was performed according to our departmental dose-optimization program, which includes automated exposure control, adjustment of the mA and/or kV according to patient size and/or use of iterative reconstruction technique. Hip/Pelvis X-Ray 05/10/17 02:42 IMPRESSION: 1. No acute fracture identified. Assessment & Plan - Diagnosis (1) COPD exacerbation Is this a current diagnosis for this admission?: Yes (2) Cellulitis Qualifiers: Site of cellulitis: extremity Site of cellulitis of extremity: lower extremity Qualified Code(s): L03.116 - Cellulitis of left lower limb Is this a current diagnosis for this admission?: Yes (3) Pneumonia Qualifiers: Pneumonia type: due to unspecified organism Laterality: unspecified laterality Lung location: unspecified part of lung Qualified Code(s): J18.9 - Pneumonia, unspecified organism Is this a current diagnosis for this admission?: Yes (4) Acute metabolic encephalopathy Is this a current diagnosis for this admission?: Yes (5) Acute respiratory failure with hypoxemia Is this a current diagnosis for this admission?: Yes (6) Alcohol abuse Is this a current diagnosis for this admission?: Yes - Time Time Spent with patient: 35 or more minutes - Plan Summary Plan Summary: Continue supplemental oxygen antibiotic steroids and breathing treatments Insulin sliding scale and Lantus Ativan for possible alcohol withdrawal
[2017-05-10 20:41] LABS: ANION GAP 10 (5-19); BLOOD UREA NITROGEN 19 mg/dL (7-20); CALCIUM 7.6 mg/dL (8.4-10.2); CARBON DIOXIDE 26 mmol/L (22-30); CHLORIDE 94 mmol/L (98-107); POTASSIUM 4.4 mmol/L (3.6-5.0); SODIUM 129.9 mmol/L (137-145)
[2017-05-10 20:57] LABS: GLUCOSE 587 mg/dL (75-110)
[2017-05-10] MEDS: INSULIN LISPRO 100 UNIT/ML 3 ML VIAL SUBCUT PRN (21:17)
[2017-05-10] MEDS ORDERED: RIVAROXABAN 10 MG PO SCH (22:00)
[2017-05-10] MEDS: GUAIFENESIN 600 MG TABLET.SA PO SCH (23:06)
[2017-05-10] MEDS: ATORVASTATIN CALCIUM 10 MG TABLET PO SCH (23:07)
[2017-05-10] MEDS: DIAZEPAM 5 MG TABLET PO SCH (23:07)
[2017-05-10] MEDS: RIVAROXABAN 10 MG TABLET PO SCH (23:08)
[2017-05-11] MEDS ORDERED: INSULIN REG, HUMAN 100 UNIT/ML 3 ML VIAL (PYX) ONE (00:32)
[2017-05-11 00:35] LABS: ANION GAP 7 (5-19); BLOOD UREA NITROGEN 20 mg/dL (7-20); CALCIUM 7.6 mg/dL (8.4-10.2); CARBON DIOXIDE 28 mmol/L (22-30); CHLORIDE 95 mmol/L (98-107); POTASSIUM 4.2 mmol/L (3.6-5.0); SODIUM 130.1 mmol/L (137-145)
[2017-05-11] MEDS: INSULIN LISPRO 100 UNIT/ML 3 ML VIAL SUBCUT PRN ×6 (00:36→20:07)
[2017-05-11 00:47] LABS: GLUCOSE 439 mg/dL (75-110)
[2017-05-11] MEDS ORDERED: INSULIN REG, HUMAN 100 UNIT/ML 3 ML VIAL (PYX) IV ONE (01:00)
[2017-05-11] MEDS: METHYLPREDNISOLONE INJ 125 MG/2 ML SDV IV SCH ×3 (01:43→17:40)
[2017-05-11] MEDS: IPRATROPIUM/ALBUTEROL 0.5-2.5 MG/3 ML AMPUL NEB SCH ×4 (02:10→20:22)
[2017-05-11] MEDS: LORAZEPAM INJ 2 MG/1 ML VIAL IV PRN ×2 (04:17→15:11)
[2017-05-11 04:20] LABS: ABSOLUTE LYMPHOCYTES (AUTO) 1.1 10^3/uL (0.5-4.7); ABSOLUTE MONOCYTES (AUTO) 0.4 10^3/uL (0.1-1.4); ABSOLUTE NEUT (AUTO) 12.1 10^3/uL (1.7-8.2); BASOPHILS % (AUTO) 0.3 % (0-2); HEMATOCRIT 32.9 % (36.0-47.0); HEMOGLOBIN 10.3 g/dL (12.0-15.5); LYMPHOCYTES % (AUTO) 8.1 % (13-45); MEAN CORPUSCULAR HGB CONC 31.5 g/dL (32.0-36.0); MEAN CORPUSCULAR VOLUME 86 fl (80-97); PLATELET COUNT 332 10^3/uL (150-450); RED BLOOD COUNT 3.82 10^6/uL (3.72-5.28); RED CELL DISTRIBUTION WIDTH 17.2 % (11.5-14.0); SEGMENTED NEUTROPHILS % (AUTO) 88.6 % (42-78); TOTAL CELLS COUNTED % (AUTO) 100 %; WHITE BLOOD COUNT 13.7 10^3/uL (4.0-10.5)
[2017-05-11 04:42] LABS: ANION GAP 5 (5-19); BLOOD UREA NITROGEN 20 mg/dL (7-20); CALCIUM 7.7 mg/dL (8.4-10.2); CARBON DIOXIDE 28 mmol/L (22-30); CHLORIDE 100 mmol/L (98-107); GLUCOSE 294 mg/dL (75-110); SODIUM 132.7 mmol/L (137-145)
[2017-05-11] MEDS: NORMAL SALINE 1000 ML 1,000 ML IV PRN ×2 (04:43→15:38)
[2017-05-11] MEDS: LANSOPRAZOLE 15 MG TAB.RAP.DR PO SCH ×2 (05:26→17:40)
[2017-05-11 08:44] LABS: BLOOD UREA NITROGEN 19 mg/dL (7-20); CALCIUM 7.8 mg/dL (8.4-10.2); CHLORIDE 102 mmol/L (98-107); GLUCOSE 180 mg/dL (75-110)
[2017-05-11 08:58] LABS: ANION GAP 5 (5-19); CARBON DIOXIDE 29 mmol/L (22-30); SODIUM 135.5 mmol/L (137-145)
[2017-05-11] MEDS: CEFTRIAXONE 1 GM/D5W RTU 1 GM/50 ML RTUPB IV SCH (10:22)
[2017-05-11] MEDS: LEVOFLOXACIN 750 MG/D5W RTU 750 MG/150 ML RTUPB IV SCH (10:22)
[2017-05-11] MEDS: FLUCONAZOLE 200 MG/NS RTU 100 ML IV SCH (10:22)
[2017-05-11] MEDS: LORAZEPAM 1 MG TABLET PO SCH ×3 (10:23→17:40)
[2017-05-11] MEDS: THIAMINE HCL 100 MG TABLET PO SCH (10:23)
[2017-05-11] MEDS: FOLIC ACID 1 MG TABLET PO SCH (10:23)
[2017-05-11] MEDS: GUAIFENESIN 600 MG TABLET.SA PO SCH ×2 (10:23→21:55)
[2017-05-11] MEDS: NYSTATIN CREAM 15 GM TP SCH ×2 (10:23→17:42)
[2017-05-11] MEDS: NYSTATIN TOPICAL POWDER 15 GM TP SCH ×2 (10:24→17:42)
--- NOTE | 2017-05-11 13:36 | PDOC PROGRESS REPORT ---
Subjective Progress Note for:: 05/11/17 Subjective:: Denies any complaints today. Reason For Visit: COPD EXACERBATION, HYPERGLYCEMIA, LEFT LOWER Physical Exam Vital Signs: Temp Pulse Resp BP Pulse Ox 98.0 F 83 16 128/68 H 95 05/11/17 11:29 05/11/17 11:29 05/11/17 11:29 05/11/17 11:29 05/11/17 11:29 Intake & Output 05/10/17 05/11/17 05/12/17 06:59 06:59 06:59 Intake Total 6119 360 Output Total 2950 600 Balance 3169 -240 Weight 75.4 kg 80 kg General appearance: PRESENT: no acute distress Eye exam: PRESENT: conjunctiva pink. ABSENT: scleral icterus Mouth exam: PRESENT: moist, tongue midline Neck exam: ABSENT: JVD Respiratory exam: PRESENT: rhonchi. ABSENT: rales, wheezes Cardiovascular exam: PRESENT: RRR. ABSENT: diastolic murmur, rubs, systolic murmur GI/Abdominal exam: PRESENT: normal bowel sounds, soft. ABSENT: distended, guarding, mass, organolmegaly, rebound, tenderness Extremities exam: ABSENT: calf tenderness, clubbing, pedal edema Neurological exam: PRESENT: alert, awake, oriented to person, oriented to place , oriented to time, CN II-XII grossly intact. ABSENT: oriented to situation, motor sensory deficit Psychiatric exam: PRESENT: flat affect Skin exam: PRESENT: dry, intact, warm. ABSENT: cyanosis, rash Results Laboratory Results: 05/11/17 04:11 05/11/17 08:09 05/10/17 05/10/17 05/11/17 16:25 20:15 00:14 WBC RBC Hgb Hct MCV MCH MCHC RDW Plt Count Seg Neutrophils % Lymphocytes % Monocytes % Eosinophils % Basophils % Absolute Neutrophils Absolute Lymphocytes Absolute Monocytes Absolute Eosinophils Absolute Basophils Sodium 130.0 L 129.9 L 130.1 L Potassium 4.5 4.4 4.2 Chloride 94 L 94 L 95 L Carbon Dioxide 26 26 28 Anion Gap 10 10 7 BUN 16 19 20 Creatinine 0.91 0.96 0.99 Est GFR ( Amer) > 60 > 60 > 60 Est GFR (Non-Af Amer) > 60 57 L 55 L Glucose 610 H* 587 H* 439 H* Calcium 7.3 L 7.6 L 7.6 L 05/11/17 05/11/17 05/11/17 04:11 04:11 08:09 WBC 13.7 H RBC 3.82 Hgb 10.3 L Hct 32.9 L MCV 86 MCH 27.0 MCHC 31.5 L RDW 17.2 H Plt Count 332 Seg Neutrophils % 88.6 H Lymphocytes % 8.1 L Monocytes % 3.0 Eosinophils % 0.0 Basophils % 0.3 Absolute Neutrophils 12.1 H Absolute Lymphocytes 1.1 Absolute Monocytes 0.4 Absolute Eosinophils 0.0 Absolute Basophils 0.0 Sodium 132.7 L 135.5 L Potassium 4.0 4.0 Chloride 100 102 Carbon Dioxide 28 29 Anion Gap 5 5 BUN 20 19 Creatinine 0.95 0.96 Est GFR ( Amer) > 60 > 60 Est GFR (Non-Af Amer) 58 L 57 L Glucose 294 H 180 H Calcium 7.7 L 7.8 L 05/10/17 05:15 Creatine Kinase 23 L Impressions: Cervical Spine CT 05/10/17 02:40 IMPRESSION: 1. No acute fracture or subluxation of the cervical spine. This exam was performed according to our departmental dose-optimization program, which includes automated exposure control, adjustment of the mA and/or kV according to patient size and/or use of iterative reconstruction technique. Chest X-Ray 05/10/17 02:40 IMPRESSION: 1. Interval increase in bilateral interstitial opacities which may be related to pulmonary edema. Head CT 05/10/17 02:40 IMPRESSION: 1. No acute intracranial abnormality by CT criteria. This exam was performed according to our departmental dose-optimization program, which includes automated exposure control, adjustment of the mA and/or kV according to patient size and/or use of iterative reconstruction technique. Hip/Pelvis X-Ray 05/10/17 02:42 IMPRESSION: 1. No acute fracture identified. Assessment & Plan - Diagnosis (1) COPD exacerbation Is this a current diagnosis for this admission?: Yes Plan: Patient continues to be hypoxic without supplemental oxygen. We will continue with Solu-Medrol, antibiotics and nebulizers. (2) Pneumonia Qualifiers: Pneumonia type: due to unspecified organism Laterality: unspecified laterality Lung location: unspecified part of lung Qualified Code(s): J18.9 - Pneumonia, unspecified organism Is this a current diagnosis for this admission?: Yes Plan: Cultures are negative so far. We will continue with the Rocephin and Levaquin. (3) Cellulitis Qualifiers: Site of cellulitis: extremity Site of cellulitis of extremity: lower extremity Qualified Code(s): L03.116 - Cellulitis of left lower limb Is this a current diagnosis for this admission?: Yes Plan: Patient has cellulitis of the leg. This is improving with Rocephin and Levaquin. (4) Acute metabolic encephalopathy Is this a current diagnosis for this admission?: Yes Plan: Patient is slightly confused. She states she wants to leave AMA however when she takes her oxygen off her saturations dropped down to 60%. I have encouraged her to stay. (5) Acute respiratory failure with hypoxemia Is this a current diagnosis for this admission?: Yes Plan: Most likely combination of both pneumonia and COPD exacerbation. (6) Alcohol abuse Is this a current diagnosis for this admission?: Yes Plan: Continue with Ativan as needed. (7) Anemia Qualifiers: Anemia type: unspecified type Qualified Code(s): D64.9 - Anemia, unspecified Is this a current diagnosis for this admission?: Yes Plan: Hemoglobin is stable. (8) Anxiety Is this a current diagnosis for this admission?: Yes Plan: Continue with Ativan as needed. (9) Diabetes Qualifiers: Diabetes mellitus type: type 2 Diabetes mellitus complication status: with unspecified complications Diabetes mellitus financial aid officer insulin use: with financial aid officer use Qualified Code(s): E11.8 - Type 2 diabetes mellitus with unspecified complications; Z79.4 - overhead door technician (current) use of insulin Is this a current diagnosis for this admission?: Yes Plan: Continue with sliding scale insulin. (10) Hypertension Qualifiers: Hypertension type: essential hypertension Qualified Code(s): I10 - Essential (primary) hypertension Is this a current diagnosis for this admission?: Yes (11) Peripheral vascular disease Is this a current diagnosis for this admission?: Yes (12) Restless leg syndrome Is this a current diagnosis for this admission?: Yes - Time Time Spent with patient: 25-34 minutes - Inpatient Certification Medical Necessity: Need Close Monitoring Due to Risk of Patient Decompensation, Need for IV Antibiotics
[2017-05-11] MEDS: DIPHENHYDRAMINE HCL 25 MG CAPSULE PO PRN (19:59)
[2017-05-11] MEDS: RIVAROXABAN 10 MG TABLET PO SCH (21:54)
[2017-05-11] MEDS: DIAZEPAM 5 MG TABLET PO SCH (21:55)
[2017-05-11] MEDS: ATORVASTATIN CALCIUM 10 MG TABLET PO SCH (21:55)
[2017-05-12] MEDS: NORMAL SALINE 1000 ML 1,000 ML IV PRN ×3 (00:19→22:27)
[2017-05-12] MEDS: INSULIN LISPRO 100 UNIT/ML 3 ML VIAL SUBCUT PRN ×6 (00:19→20:22)
[2017-05-12 00:49] LABS: ANION GAP 5 (5-19); BLOOD UREA NITROGEN 17 mg/dL (7-20); CALCIUM 7.5 mg/dL (8.4-10.2); CARBON DIOXIDE 28 mmol/L (22-30); CHLORIDE 102 mmol/L (98-107); GLUCOSE 298 mg/dL (75-110); POTASSIUM 4.3 mmol/L (3.6-5.0); SODIUM 134.6 mmol/L (137-145)
[2017-05-12] MEDS: LORAZEPAM INJ 2 MG/1 ML VIAL IV PRN ×2 (01:52→12:56)
[2017-05-12] MEDS: METHYLPREDNISOLONE INJ 125 MG/2 ML SDV IV SCH ×3 (01:52→18:06)
[2017-05-12] MEDS: IPRATROPIUM/ALBUTEROL 0.5-2.5 MG/3 ML AMPUL NEB SCH ×4 (02:08→20:55)
[2017-05-12] MEDS: DIPHENHYDRAMINE HCL 25 MG CAPSULE PO PRN (02:45)
[2017-05-12] MEDS: IBUPROFEN 400 MG TABLET PO PRN (04:38)
[2017-05-12 05:01] LABS: HEMATOCRIT 34.3 % (36.0-47.0); HEMOGLOBIN 10.8 g/dL (12.0-15.5); MEAN CORPUSCULAR HEMOGLOBIN 27.3 pg (27.0-33.4); MEAN CORPUSCULAR HGB CONC 31.5 g/dL (32.0-36.0); MEAN CORPUSCULAR VOLUME 87 fl (80-97); RED BLOOD COUNT 3.97 10^6/uL (3.72-5.28); RED CELL DISTRIBUTION WIDTH 17.9 % (11.5-14.0); WHITE BLOOD COUNT 12.6 10^3/uL (4.0-10.5)
[2017-05-12 05:20] LABS: ANION GAP 7 (5-19); BLOOD UREA NITROGEN 18 mg/dL (7-20); CALCIUM 7.7 mg/dL (8.4-10.2); CARBON DIOXIDE 27 mmol/L (22-30); CHLORIDE 104 mmol/L (98-107); GLUCOSE 320 mg/dL (75-110); POTASSIUM 4.3 mmol/L (3.6-5.0); SODIUM 137.6 mmol/L (137-145)
[2017-05-12 05:27] LABS: ABSOLUTE LYMPHOCYTES# (MANUAL) 0.5 10^3/uL (0.5-4.7); ABSOLUTE NEUTROPHILS# (MANUAL) 12.1 10^3/uL (1.7-8.2); BASOPHILS % (MANUAL) 0 % (0-2); EOSINOPHILS % (MANUAL) 0 % (0-6); LYMPHOCYTES % (MANUAL) 4 % (13-45); MONOCYTES % (MANUAL) 0 % (3-13); SEGMENTED NEUTROPHILS % (MAN) 96 % (42-78); TOTAL CELLS COUNTED 100
[2017-05-12 05:30] LABS: ANISOCYTOSIS 1+; HYPOCHROMASIA SLIGHT; OVALOCYTES SLIGHT; PLATELET CLUMPS PRESENT; PLATELET COMMENT ADEQUATE; PLATELET COUNT 320 10^3/uL (150-450); POIKILOCYTOSIS SLIGHT; POLYCHROMASIA SLIGHT; TOXIC GRANULATION 1+; TOXIC VACUOLATION PRESENT
[2017-05-12] MEDS: LANSOPRAZOLE 15 MG TAB.RAP.DR PO SCH ×2 (05:36→16:42)
[2017-05-12] MEDS: THIAMINE HCL 100 MG TABLET PO SCH (09:28)
[2017-05-12] MEDS: GUAIFENESIN 600 MG TABLET.SA PO SCH ×2 (09:28→22:16)
[2017-05-12] MEDS: LORAZEPAM 1 MG TABLET PO SCH ×3 (09:28→18:06)
[2017-05-12] MEDS: FOLIC ACID 1 MG TABLET PO SCH (09:28)
[2017-05-12] MEDS: CEFTRIAXONE 1 GM/D5W RTU 1 GM/50 ML RTUPB IV SCH (09:29)
[2017-05-12] MEDS: FLUCONAZOLE 200 MG/NS RTU 100 ML IV SCH (09:39)
[2017-05-12] MEDS: LEVOFLOXACIN 750 MG/D5W RTU 750 MG/150 ML RTUPB IV SCH (09:39)
[2017-05-12] MEDS: NYSTATIN CREAM 15 GM TP SCH ×2 (09:42→18:06)
[2017-05-12] MEDS: NYSTATIN TOPICAL POWDER 15 GM TP SCH ×2 (09:43→18:06)
--- NOTE | 2017-05-12 09:56 | PDOC PROGRESS REPORT ---
Subjective Progress Note for:: 05/12/17 Subjective:: Denies any complaints today. She is somewhat confused today. Reason For Visit: COPD EXACERBATION, HYPERGLYCEMIA, LEFT LOWER Physical Exam Vital Signs: Temp Pulse Resp BP Pulse Ox 98.2 F 95 15 167/83 H 93 05/12/17 07:44 05/12/17 07:44 05/12/17 07:44 05/12/17 07:44 05/12/17 07:44 Intake & Output 05/11/17 05/12/17 05/13/17 06:59 06:59 06:59 Intake Total 6119 5711 Output Total 2950 2700 Balance 3169 3011 Weight 80 kg 81.2 kg General appearance: PRESENT: no acute distress Eye exam: PRESENT: conjunctiva pink. ABSENT: scleral icterus Mouth exam: PRESENT: moist, tongue midline Neck exam: ABSENT: JVD Respiratory exam: PRESENT: clear to auscultation lauren. ABSENT: rales, rhonchi, wheezes Cardiovascular exam: PRESENT: RRR. ABSENT: diastolic murmur, rubs, systolic murmur GI/Abdominal exam: PRESENT: normal bowel sounds, soft. ABSENT: distended, guarding, mass, organolmegaly, rebound, tenderness Extremities exam: ABSENT: calf tenderness, clubbing, pedal edema Neurological exam: PRESENT: awake, oriented to person, oriented to place, CN II- XII grossly intact. ABSENT: oriented to time, oriented to situation, motor sensory deficit Psychiatric exam: PRESENT: flat affect Skin exam: PRESENT: dry, intact, warm. ABSENT: cyanosis, rash Results Laboratory Results: 05/12/17 04:44 05/12/17 04:44 05/12/17 05/12/17 05/12/17 00:11 04:44 04:44 WBC 12.6 H RBC 3.97 Hgb 10.8 L Hct 34.3 L MCV 87 MCH 27.3 MCHC 31.5 L RDW 17.9 H Plt Count 320 Seg Neutrophils % Not Reportable Lymphocytes % Not Reportable Monocytes % Not Reportable Eosinophils % Not Reportable Basophils % Not Reportable Absolute Neutrophils Not Reportable Absolute Lymphocytes Not Reportable Absolute Monocytes Not Reportable Absolute Eosinophils Not Reportable Absolute Basophils Not Reportable Sodium 134.6 L 137.6 Potassium 4.3 4.3 Chloride 102 104 Carbon Dioxide 28 27 Anion Gap 5 7 BUN 17 18 Creatinine 1.02 1.00 Est GFR ( Amer) > 60 > 60 Est GFR (Non-Af Amer) 53 L 55 L Glucose 298 H 320 H Calcium 7.5 L 7.7 L 05/10/17 05:15 Creatine Kinase 23 L Impressions: Cervical Spine CT 05/10/17 02:40 IMPRESSION: 1. No acute fracture or subluxation of the cervical spine. This exam was performed according to our departmental dose-optimization program, which includes automated exposure control, adjustment of the mA and/or kV according to patient size and/or use of iterative reconstruction technique. Chest X-Ray 05/10/17 02:40 IMPRESSION: 1. Interval increase in bilateral interstitial opacities which may be related to pulmonary edema. Head CT 05/10/17 02:40 IMPRESSION: 1. No acute intracranial abnormality by CT criteria. This exam was performed according to our departmental dose-optimization program, which includes automated exposure control, adjustment of the mA and/or kV according to patient size and/or use of iterative reconstruction technique. Hip/Pelvis X-Ray 05/10/17 02:42 IMPRESSION: 1. No acute fracture identified. Assessment & Plan - Diagnosis (1) COPD exacerbation Is this a current diagnosis for this admission?: Yes Plan: Patient continues to be hypoxic without supplemental oxygen. We will continue with Solu-Medrol, antibiotics and nebulizers. (2) Pneumonia Qualifiers: Pneumonia type: due to unspecified organism Laterality: unspecified laterality Lung location: unspecified part of lung Qualified Code(s): J18.9 - Pneumonia, unspecified organism Is this a current diagnosis for this admission?: Yes Plan: Cultures are negative so far. We will continue with the Rocephin and Levaquin. (3) Cellulitis Qualifiers: Site of cellulitis: extremity Site of cellulitis of extremity: lower extremity Qualified Code(s): L03.116 - Cellulitis of left lower limb Is this a current diagnosis for this admission?: Yes Plan: Patient has cellulitis of the leg. This is improving with Rocephin and Levaquin. (4) Acute metabolic encephalopathy Is this a current diagnosis for this admission?: Yes Plan: Patient is confused. Most likely combination of infection and alcohol use. (5) Acute respiratory failure with hypoxemia Is this a current diagnosis for this admission?: Yes Plan: Most likely combination of both pneumonia and COPD exacerbation. (6) Alcohol abuse Is this a current diagnosis for this admission?: Yes Plan: Continue with Ativan as needed. (7) Anemia Qualifiers: Anemia type: unspecified type Qualified Code(s): D64.9 - Anemia, unspecified Is this a current diagnosis for this admission?: Yes Plan: Hemoglobin is stable. (8) Anxiety Is this a current diagnosis for this admission?: Yes Plan: Continue with Ativan as needed. (9) Diabetes Qualifiers: Diabetes mellitus type: type 2 Diabetes mellitus complication status: with unspecified complications Diabetes mellitus terminal supervisor insulin use: with terminal supervisor use Qualified Code(s): E11.8 - Type 2 diabetes mellitus with unspecified complications; Z79.4 - intermediate accountant (current) use of insulin Is this a current diagnosis for this admission?: Yes Plan: Continue with sliding scale insulin. (10) Hypertension Qualifiers: Hypertension type: essential hypertension Qualified Code(s): I10 - Essential (primary) hypertension Is this a current diagnosis for this admission?: Yes (11) Peripheral vascular disease Is this a current diagnosis for this admission?: Yes (12) Restless leg syndrome Is this a current diagnosis for this admission?: Yes - Time Time Spent with patient: 25-34 minutes - Inpatient Certification Medical Necessity: Need Close Monitoring Due to Risk of Patient Decompensation
--- NOTE | 2017-05-12 13:09 | EKG REPORT ---
SEVERITY:- BORDERLINE ECG - SINUS TACHYCARDIA LOW VOLTAGE THROUGHOUT BORDERLINE R WAVE PROGRESSION, ANTERIOR LEADS : Confirmed by: Isma Cohen MD 12-May-2017 13:08:11
[2017-05-12] MEDS ORDERED: DILTIAZEM HCL 120 MG CAP.SR.24H PO ONE (14:00)
[2017-05-12] MEDS: HALOPERIDOL LACTATE INJ 5 MG/1 ML VIAL IV PRN (16:42)
[2017-05-12] MEDS: ATORVASTATIN CALCIUM 10 MG TABLET PO SCH (22:16)
[2017-05-12] MEDS: DIAZEPAM 5 MG TABLET PO SCH (22:16)
[2017-05-12] MEDS: RIVAROXABAN 10 MG TABLET PO SCH (22:17)
[2017-05-13] MEDS: HALOPERIDOL LACTATE INJ 5 MG/1 ML VIAL IV PRN ×3 (01:31→17:15)
[2017-05-13] MEDS: METHYLPREDNISOLONE INJ 125 MG/2 ML SDV IV SCH ×2 (01:31→09:44)
[2017-05-13] MEDS: IPRATROPIUM/ALBUTEROL 0.5-2.5 MG/3 ML AMPUL NEB SCH ×4 (02:25→20:54)
[2017-05-13] MEDS: LORAZEPAM INJ 2 MG/1 ML VIAL IV PRN ×4 (03:12→17:47)
[2017-05-13] MEDS: HYDRALAZINE HCL INJ/PF 20 MG/1 ML SDV IV PRN ×2 (03:24→08:50)
[2017-05-13] MEDS: IBUPROFEN 400 MG TABLET PO PRN (05:21)
[2017-05-13] MEDS: LANSOPRAZOLE 15 MG TAB.RAP.DR PO SCH ×2 (05:21→17:12)
[2017-05-13] MEDS: NORMAL SALINE 1000 ML 1,000 ML IV PRN ×2 (06:00→17:13)
[2017-05-13 06:41] LABS: HEMATOCRIT 33.7 % (36.0-47.0); HEMOGLOBIN 10.6 g/dL (12.0-15.5); MEAN CORPUSCULAR HEMOGLOBIN 27.4 pg (27.0-33.4); MEAN CORPUSCULAR HGB CONC 31.4 g/dL (32.0-36.0); MEAN CORPUSCULAR VOLUME 87 fl (80-97); PLATELET COUNT 321 10^3/uL (150-450); RED BLOOD COUNT 3.85 10^6/uL (3.72-5.28); RED CELL DISTRIBUTION WIDTH 18.1 % (11.5-14.0); WHITE BLOOD COUNT 12.4 10^3/uL (4.0-10.5)
[2017-05-13 06:44] LABS: ANION GAP 8 (5-19); BLOOD UREA NITROGEN 19 mg/dL (7-20); CALCIUM 7.8 mg/dL (8.4-10.2); CARBON DIOXIDE 22 mmol/L (22-30); CHLORIDE 106 mmol/L (98-107); GLUCOSE 371 mg/dL (75-110); POTASSIUM 4.8 mmol/L (3.6-5.0); SODIUM 136.1 mmol/L (137-145)
[2017-05-13 07:13] LABS: ABSOLUTE LYMPHOCYTES# (MANUAL) 0.1 10^3/uL (0.5-4.7); ABSOLUTE MONOCYTES # (MANUAL) 0.1 10^3/uL (0.1-1.4); ABSOLUTE NEUTROPHILS# (MANUAL) 12.2 10^3/uL (1.7-8.2); BASOPHILS % (MANUAL) 0 % (0-2); EOSINOPHILS % (MANUAL) 0 % (0-6); LYMPHOCYTES % (MANUAL) 1 % (13-45); MONOCYTES % (MANUAL) 1 % (3-13); SEGMENTED NEUTROPHILS % (MAN) 98 % (42-78); TOTAL CELLS COUNTED 100
[2017-05-13 07:14] LABS: ANISOCYTOSIS 1+; OVALOCYTES SLIGHT; PLATELET COMMENT ADEQUATE; POIKILOCYTOSIS SLIGHT; POLYCHROMASIA SLIGHT; SCHISTOCYTES SLIGHT; TEAR DROP CELLS SLIGHT; TOXIC GRANULATION 1+
[2017-05-13] MEDS: CEFTRIAXONE 1 GM/D5W RTU 1 GM/50 ML RTUPB IV SCH (09:42)
[2017-05-13] MEDS: THIAMINE HCL 100 MG TABLET PO SCH (09:43)
[2017-05-13] MEDS: LORAZEPAM 1 MG TABLET PO SCH ×3 (09:44→17:14)
[2017-05-13] MEDS: FOLIC ACID 1 MG TABLET PO SCH (09:44)
[2017-05-13] MEDS: GUAIFENESIN 600 MG TABLET.SA PO SCH ×2 (09:44→22:18)
[2017-05-13] MEDS: NYSTATIN CREAM 15 GM TP SCH ×2 (09:45→17:12)
[2017-05-13] MEDS: FLUCONAZOLE 200 MG/NS RTU 100 ML IV SCH (09:45)
[2017-05-13] MEDS: NYSTATIN TOPICAL POWDER 15 GM TP SCH ×2 (09:45→17:12)
[2017-05-13] MEDS: LEVOFLOXACIN 750 MG/D5W RTU 750 MG/150 ML RTUPB IV SCH (09:46)
[2017-05-13] MEDS ORDERED: DILTIAZEM HCL 120 MG CAP.SR.24H PO SCH ×2 (10:00→10:41)
--- NOTE | 2017-05-13 10:40 | PDOC PROGRESS REPORT ---
Subjective Progress Note for:: 05/13/17 Subjective:: Denies any complaints today. She is confused today. Reason For Visit: COPD EXACERBATION, HYPERGLYCEMIA, LEFT LOWER Physical Exam Vital Signs: Temp Pulse Resp BP Pulse Ox 98.2 F 105 H 20 184/96 H 92 05/13/17 07:44 05/13/17 08:03 05/13/17 08:03 05/13/17 07:44 05/13/17 08:03 Intake & Output 05/12/17 05/13/17 05/14/17 06:59 06:59 06:59 Intake Total 5711 3037 Output Total 2700 2625 Balance 3011 412 Weight 81.2 kg 83.2 kg General appearance: PRESENT: no acute distress Eye exam: PRESENT: conjunctiva pink. ABSENT: scleral icterus Mouth exam: PRESENT: moist, tongue midline Neck exam: ABSENT: JVD Respiratory exam: PRESENT: rhonchi. ABSENT: rales, wheezes Cardiovascular exam: PRESENT: RRR. ABSENT: diastolic murmur, rubs, systolic murmur GI/Abdominal exam: PRESENT: normal bowel sounds, soft. ABSENT: distended, guarding, mass, organolmegaly, rebound, tenderness Extremities exam: ABSENT: calf tenderness, clubbing, pedal edema Neurological exam: PRESENT: awake, oriented to person, oriented to place. ABSENT: oriented to time, oriented to situation Psychiatric exam: PRESENT: flat affect Skin exam: PRESENT: dry, intact, warm. ABSENT: cyanosis, rash Results Laboratory Results: 05/13/17 05:45 05/13/17 05:45 05/13/17 05/13/17 05:45 05:45 WBC 12.4 H RBC 3.85 Hgb 10.6 L Hct 33.7 L MCV 87 MCH 27.4 MCHC 31.4 L RDW 18.1 H Plt Count 321 Seg Neutrophils % Not Reportable Lymphocytes % Not Reportable Monocytes % Not Reportable Eosinophils % Not Reportable Basophils % Not Reportable Absolute Neutrophils Not Reportable Absolute Lymphocytes Not Reportable Absolute Monocytes Not Reportable Absolute Eosinophils Not Reportable Absolute Basophils Not Reportable Sodium 136.1 L Potassium 4.8 Chloride 106 Carbon Dioxide 22 Anion Gap 8 BUN 19 Creatinine 0.97 Est GFR ( Amer) > 60 Est GFR (Non-Af Amer) 56 L Glucose 371 H Calcium 7.8 L 05/10/17 06:40 Padilla Catheter Urine Culture - Final NO GROWTH 2 DAYS 05/10/17 05:15 Creatine Kinase 23 L Impressions: Cervical Spine CT 05/10/17 02:40 IMPRESSION: 1. No acute fracture or subluxation of the cervical spine. This exam was performed according to our departmental dose-optimization program, which includes automated exposure control, adjustment of the mA and/or kV according to patient size and/or use of iterative reconstruction technique. Chest X-Ray 05/10/17 02:40 IMPRESSION: 1. Interval increase in bilateral interstitial opacities which may be related to pulmonary edema. Head CT 05/10/17 02:40 IMPRESSION: 1. No acute intracranial abnormality by CT criteria. This exam was performed according to our departmental dose-optimization program, which includes automated exposure control, adjustment of the mA and/or kV according to patient size and/or use of iterative reconstruction technique. Hip/Pelvis X-Ray 05/10/17 02:42 IMPRESSION: 1. No acute fracture identified. Assessment & Plan - Diagnosis (1) COPD exacerbation Is this a current diagnosis for this admission?: Yes Plan: Patient continues to be hypoxic without supplemental oxygen. We will continue with Solu-Medrol, antibiotics and nebulizers. (2) Pneumonia Qualifiers: Pneumonia type: due to unspecified organism Laterality: unspecified laterality Lung location: unspecified part of lung Qualified Code(s): J18.9 - Pneumonia, unspecified organism Is this a current diagnosis for this admission?: Yes Plan: Cultures are negative so far. We will continue with the Rocephin and Levaquin. (3) Cellulitis Qualifiers: Site of cellulitis: extremity Site of cellulitis of extremity: lower extremity Qualified Code(s): L03.116 - Cellulitis of left lower limb Is this a current diagnosis for this admission?: Yes Plan: Patient has cellulitis of the leg. This is improving with Rocephin and Levaquin. (4) Acute metabolic encephalopathy Is this a current diagnosis for this admission?: Yes Plan: Patient is confused. Most likely from delirium tremens given that her infection is improving. (5) Acute respiratory failure with hypoxemia Is this a current diagnosis for this admission?: Yes Plan: Most likely combination of both pneumonia and COPD exacerbation. (6) Alcohol abuse Is this a current diagnosis for this admission?: Yes Plan: Continue with Ativan as needed. (7) Anemia Qualifiers: Anemia type: unspecified type Qualified Code(s): D64.9 - Anemia, unspecified Is this a current diagnosis for this admission?: Yes Plan: Hemoglobin is stable. (8) Anxiety Is this a current diagnosis for this admission?: Yes Plan: Continue with Ativan as needed. (9) Diabetes Qualifiers: Diabetes mellitus type: type 2 Diabetes mellitus complication status: with unspecified complications Diabetes mellitus director long term care insulin use: with director long term care use Qualified Code(s): E11.8 - Type 2 diabetes mellitus with unspecified complications; Z79.4 - detention (current) use of insulin Is this a current diagnosis for this admission?: Yes Plan: Continue with sliding scale insulin. (10) Hypertension Qualifiers: Hypertension type: essential hypertension Qualified Code(s): I10 - Essential (primary) hypertension Is this a current diagnosis for this admission?: Yes Plan: Patient's blood pressure is still elevated. Will increase the diltiazem (11) Peripheral vascular disease Is this a current diagnosis for this admission?: Yes (12) Restless leg syndrome Is this a current diagnosis for this admission?: Yes - Time Time Spent with patient: 25-34 minutes - Inpatient Certification Medical Necessity: Need Close Monitoring Due to Risk of Patient Decompensation
[2017-05-13] MEDS: INSULIN LISPRO 100 UNIT/ML 3 ML VIAL SUBCUT PRN ×3 (12:23→22:37)
[2017-05-13] MEDS: METHYLPREDNISOLONE INJ 40 MG/1 ML SDV IV SCH (17:11)
[2017-05-13] MEDS: DIAZEPAM 5 MG TABLET PO SCH (22:18)
[2017-05-13] MEDS: ATORVASTATIN CALCIUM 10 MG TABLET PO SCH (22:18)
[2017-05-13] MEDS: RIVAROXABAN 10 MG TABLET PO SCH (22:18)
[2017-05-14] MEDS: LORAZEPAM INJ 2 MG/1 ML VIAL IV PRN (01:04)
[2017-05-14] MEDS: NORMAL SALINE 1000 ML 1,000 ML IV PRN ×2 (01:20→09:29)
[2017-05-14] MEDS: METHYLPREDNISOLONE INJ 40 MG/1 ML SDV IV SCH ×3 (01:20→17:15)
[2017-05-14] MEDS: IPRATROPIUM/ALBUTEROL 0.5-2.5 MG/3 ML AMPUL NEB SCH ×4 (02:17→21:40)
[2017-05-14] MEDS: HALOPERIDOL LACTATE INJ 5 MG/1 ML VIAL IV PRN ×2 (03:58→22:35)
[2017-05-14 05:45] LABS: HEMATOCRIT 35.4 % (36.0-47.0); HEMOGLOBIN 10.9 g/dL (12.0-15.5); MEAN CORPUSCULAR HEMOGLOBIN 26.9 pg (27.0-33.4); MEAN CORPUSCULAR HGB CONC 30.8 g/dL (32.0-36.0); MEAN CORPUSCULAR VOLUME 87 fl (80-97); PLATELET COUNT 340 10^3/uL (150-450); RED BLOOD COUNT 4.06 10^6/uL (3.72-5.28); WHITE BLOOD COUNT 10.4 10^3/uL (4.0-10.5)
[2017-05-14] MEDS: LANSOPRAZOLE 15 MG TAB.RAP.DR PO SCH ×2 (05:45→17:15)
[2017-05-14 05:48] LABS: ANION GAP 8 (5-19); BLOOD UREA NITROGEN 25 mg/dL (7-20); CALCIUM 7.9 mg/dL (8.4-10.2); CARBON DIOXIDE 24 mmol/L (22-30); CHLORIDE 110 mmol/L (98-107); GLUCOSE 281 mg/dL (75-110); POTASSIUM 4.5 mmol/L (3.6-5.0); SODIUM 142.1 mmol/L (137-145)
[2017-05-14 06:04] LABS: ABSOLUTE LYMPHOCYTES# (MANUAL) 0.3 10^3/uL (0.5-4.7); ABSOLUTE NEUTROPHILS# (MANUAL) 10.1 10^3/uL (1.7-8.2); ANISOCYTOSIS 1+; BASOPHILS % (MANUAL) 0 % (0-2); EOSINOPHILS % (MANUAL) 0 % (0-6); LYMPHOCYTES % (MANUAL) 3 % (13-45); MONOCYTES % (MANUAL) 0 % (3-13); PLATELET COMMENT ADEQUATE; SEGMENTED NEUTROPHILS % (MAN) 97 % (42-78); TOTAL CELLS COUNTED 100; TOXIC GRANULATION SLIGHT
[2017-05-14] MEDS: INSULIN LISPRO 100 UNIT/ML 3 ML VIAL SUBCUT PRN ×4 (09:25→22:28)
[2017-05-14] MEDS: CEFTRIAXONE 1 GM/D5W RTU 1 GM/50 ML RTUPB IV SCH (09:27)
[2017-05-14] MEDS: NYSTATIN CREAM 15 GM TP SCH ×2 (09:28→17:16)
[2017-05-14] MEDS: NYSTATIN TOPICAL POWDER 15 GM TP SCH ×2 (09:28→17:15)
[2017-05-14] MEDS: LORAZEPAM 1 MG TABLET PO SCH ×3 (09:36→17:15)
[2017-05-14] MEDS: LEVOFLOXACIN 750 MG TABLET PO SCH (09:59)
[2017-05-14] MEDS: FOLIC ACID 1 MG TABLET PO SCH (10:00)
[2017-05-14] MEDS: THIAMINE HCL 100 MG TABLET PO SCH (10:00)
[2017-05-14] MEDS: GUAIFENESIN 600 MG TABLET.SA PO SCH ×2 (10:06→21:12)
[2017-05-14] MEDS: FLUCONAZOLE 200 MG/NS RTU 100 ML IV SCH (11:12)
[2017-05-14] MEDS: DILTIAZEM HCL 180 MG CAPSULE.CR PO SCH (11:13)
--- NOTE | 2017-05-14 11:16 | PDOC PROGRESS REPORT ---
Subjective Progress Note for:: 05/14/17 Subjective:: Patient is confused. States she wants to go home. Reason For Visit: COPD EXACERBATION, HYPERGLYCEMIA, LEFT LOWER Physical Exam Vital Signs: Temp Pulse Resp BP Pulse Ox 97.3 F 89 22 H 155/78 H 94 05/14/17 07:37 05/14/17 08:49 05/14/17 08:49 05/14/17 07:37 05/14/17 08:49 Intake & Output 05/13/17 05/14/17 05/15/17 06:59 06:59 06:59 Intake Total 3037 3360 Output Total 2625 945 Balance 412 2415 Weight 83.2 kg 82.4 kg General appearance: PRESENT: no acute distress Eye exam: PRESENT: conjunctiva pink. ABSENT: scleral icterus Mouth exam: PRESENT: moist, tongue midline Neck exam: ABSENT: JVD Respiratory exam: PRESENT: clear to auscultation lauren. ABSENT: rales, rhonchi, wheezes Cardiovascular exam: PRESENT: RRR. ABSENT: diastolic murmur, rubs, systolic murmur GI/Abdominal exam: PRESENT: normal bowel sounds, soft. ABSENT: distended, guarding, mass, organolmegaly, rebound, tenderness Extremities exam: ABSENT: calf tenderness, clubbing, pedal edema Neurological exam: PRESENT: altered, oriented to person. ABSENT: oriented to place, oriented to time Psychiatric exam: PRESENT: agitated Skin exam: PRESENT: other - Erythematous area over the left arm. Results Laboratory Results: 05/14/17 05:00 05/14/17 05:00 05/14/17 05/14/17 05:00 05:00 WBC 10.4 RBC 4.06 Hgb 10.9 L Hct 35.4 L MCV 87 MCH 26.9 L MCHC 30.8 L RDW 18.0 H Plt Count 340 Seg Neutrophils % Not Reportable Lymphocytes % Not Reportable Monocytes % Not Reportable Eosinophils % Not Reportable Basophils % Not Reportable Absolute Neutrophils Not Reportable Absolute Lymphocytes Not Reportable Absolute Monocytes Not Reportable Absolute Eosinophils Not Reportable Absolute Basophils Not Reportable Sodium 142.1 Potassium 4.5 Chloride 110 H Carbon Dioxide 24 Anion Gap 8 BUN 25 H Creatinine 1.02 Est GFR ( Amer) > 60 Est GFR (Non-Af Amer) 53 L Glucose 281 H Calcium 7.9 L 05/10/17 05:15 Creatine Kinase 23 L Impressions: Cervical Spine CT 05/10/17 02:40 IMPRESSION: 1. No acute fracture or subluxation of the cervical spine. This exam was performed according to our departmental dose-optimization program, which includes automated exposure control, adjustment of the mA and/or kV according to patient size and/or use of iterative reconstruction technique. Chest X-Ray 05/10/17 02:40 IMPRESSION: 1. Interval increase in bilateral interstitial opacities which may be related to pulmonary edema. Head CT 05/10/17 02:40 IMPRESSION: 1. No acute intracranial abnormality by CT criteria. This exam was performed according to our departmental dose-optimization program, which includes automated exposure control, adjustment of the mA and/or kV according to patient size and/or use of iterative reconstruction technique. Hip/Pelvis X-Ray 05/10/17 02:42 IMPRESSION: 1. No acute fracture identified. Assessment & Plan - Diagnosis (1) COPD exacerbation Is this a current diagnosis for this admission?: Yes Plan: Patient continues to be hypoxic without supplemental oxygen. We will continue with Solu-Medrol, antibiotics and nebulizers. (2) Pneumonia Qualifiers: Pneumonia type: due to unspecified organism Laterality: unspecified laterality Lung location: unspecified part of lung Qualified Code(s): J18.9 - Pneumonia, unspecified organism Is this a current diagnosis for this admission?: Yes Plan: Cultures are negative so far. We will continue with the Rocephin and Levaquin. (3) Cellulitis Qualifiers: Site of cellulitis: extremity Site of cellulitis of extremity: lower extremity Qualified Code(s): L03.116 - Cellulitis of left lower limb Is this a current diagnosis for this admission?: Yes Plan: Patient has cellulitis of the leg. This is improving with Rocephin and Levaquin. (4) Acute metabolic encephalopathy Is this a current diagnosis for this admission?: Yes Plan: Patient is confused. Most likely from delirium tremens given that her infection is improving. (5) Acute respiratory failure with hypoxemia Is this a current diagnosis for this admission?: Yes Plan: Most likely combination of both pneumonia and COPD exacerbation. (6) Alcohol abuse Is this a current diagnosis for this admission?: Yes Plan: Continue with Ativan as needed. (7) Anemia Qualifiers: Anemia type: unspecified type Qualified Code(s): D64.9 - Anemia, unspecified Is this a current diagnosis for this admission?: Yes Plan: Hemoglobin is stable. (8) Anxiety Is this a current diagnosis for this admission?: Yes Plan: Continue with Ativan as needed. (9) Diabetes Qualifiers: Diabetes mellitus type: type 2 Diabetes mellitus complication status: with unspecified complications Diabetes mellitus fci insulin use: with fci use Qualified Code(s): E11.8 - Type 2 diabetes mellitus with unspecified complications; Z79.4 - assisted (current) use of insulin Is this a current diagnosis for this admission?: Yes Plan: Continue with sliding scale insulin. (10) Hypertension Qualifiers: Hypertension type: essential hypertension Qualified Code(s): I10 - Essential (primary) hypertension Is this a current diagnosis for this admission?: Yes Plan: Patient's blood pressure is still elevated. Will increase the diltiazem (11) Peripheral vascular disease Is this a current diagnosis for this admission?: Yes (12) Restless leg syndrome Is this a current diagnosis for this admission?: Yes - Time Time Spent with patient: 25-34 minutes - Inpatient Certification Medical Necessity: Need Close Monitoring Due to Risk of Patient Decompensation
[2017-05-14] MEDS: ATORVASTATIN CALCIUM 10 MG TABLET PO SCH (21:09)
[2017-05-14] MEDS: DIAZEPAM 5 MG TABLET PO SCH (21:09)
[2017-05-14] MEDS: RIVAROXABAN 10 MG TABLET PO SCH (21:09)
[2017-05-14] MEDS: DIPHENHYDRAMINE HCL 25 MG CAPSULE PO PRN (22:36)
[2017-05-15] MEDS: METHYLPREDNISOLONE INJ 40 MG/1 ML SDV IV SCH ×3 (01:10→17:37)
[2017-05-15] MEDS: LORAZEPAM INJ 2 MG/1 ML VIAL IV PRN ×4 (01:11→23:34)
[2017-05-15] MEDS: HALOPERIDOL LACTATE INJ 5 MG/1 ML VIAL IV PRN (02:57)
[2017-05-15] MEDS: DIPHENHYDRAMINE HCL 25 MG CAPSULE PO PRN (02:57)
[2017-05-15] MEDS: IPRATROPIUM/ALBUTEROL 0.5-2.5 MG/3 ML AMPUL NEB SCH ×4 (03:02→20:31)
[2017-05-15] MEDS: LANSOPRAZOLE 15 MG TAB.RAP.DR PO SCH ×2 (05:07→17:37)
[2017-05-15] MEDS: INSULIN LISPRO 100 UNIT/ML 3 ML VIAL SUBCUT PRN ×3 (05:12→17:45)
[2017-05-15 05:48] LABS: HEMATOCRIT 34.1 % (36.0-47.0); HEMOGLOBIN 10.6 g/dL (12.0-15.5); MEAN CORPUSCULAR HEMOGLOBIN 26.8 pg (27.0-33.4); MEAN CORPUSCULAR HGB CONC 30.9 g/dL (32.0-36.0); MEAN CORPUSCULAR VOLUME 87 fl (80-97); PLATELET COUNT 343 10^3/uL (150-450); RED BLOOD COUNT 3.94 10^6/uL (3.72-5.28); WHITE BLOOD COUNT 9.8 10^3/uL (4.0-10.5)
[2017-05-15 05:58] LABS: ANION GAP 8 (5-19); BLOOD UREA NITROGEN 32 mg/dL (7-20); CALCIUM 8.3 mg/dL (8.4-10.2); CARBON DIOXIDE 23 mmol/L (22-30); CHLORIDE 110 mmol/L (98-107); GLUCOSE 275 mg/dL (75-110); POTASSIUM 4.7 mmol/L (3.6-5.0)
[2017-05-15 06:34] LABS: ABSOLUTE LYMPHOCYTES# (MANUAL) 0.2 10^3/uL (0.5-4.7); ABSOLUTE MONOCYTES # (MANUAL) 0.1 10^3/uL (0.1-1.4); ABSOLUTE NEUTROPHILS# (MANUAL) 9.5 10^3/uL (1.7-8.2); BASOPHILS % (MANUAL) 0 % (0-2); EOSINOPHILS % (MANUAL) 0 % (0-6); LYMPHOCYTES % (MANUAL) 2 % (13-45); MONOCYTES % (MANUAL) 1 % (3-13); SEGMENTED NEUTROPHILS % (MAN) 97 % (42-78); TOTAL CELLS COUNTED 100
[2017-05-15 06:35] LABS: ANISOCYTOSIS 1+
[2017-05-15 06:36] LABS: OVALOCYTES SLIGHT; POLYCHROMASIA SLIGHT
[2017-05-15 06:37] LABS: POIKILOCYTOSIS 1+
[2017-05-15 06:39] LABS: PLATELET COMMENT ADEQUATE; TOXIC GRANULATION SLIGHT
[2017-05-15] MEDS: CEFTRIAXONE 1 GM/D5W RTU 1 GM/50 ML RTUPB IV SCH (09:23)
[2017-05-15] MEDS: GUAIFENESIN 600 MG TABLET.SA PO SCH ×2 (09:24→23:35)
[2017-05-15] MEDS: THIAMINE HCL 100 MG TABLET PO SCH (09:24)
[2017-05-15] MEDS: LEVOFLOXACIN 750 MG TABLET PO SCH (09:24)
[2017-05-15] MEDS: DILTIAZEM HCL 180 MG CAPSULE.CR PO SCH (09:24)
[2017-05-15] MEDS: LORAZEPAM 1 MG TABLET PO SCH ×3 (09:24→17:37)
[2017-05-15] MEDS: FOLIC ACID 1 MG TABLET PO SCH (09:24)
[2017-05-15] MEDS: NYSTATIN CREAM 15 GM TP SCH ×2 (09:25→17:37)
[2017-05-15] MEDS: NYSTATIN TOPICAL POWDER 15 GM TP SCH ×2 (09:25→17:38)
--- NOTE | 2017-05-15 11:08 | PDOC PROGRESS REPORT ---
Subjective Progress Note for:: 05/15/17 Subjective:: Patient is confused. Reason For Visit: COPD EXACERBATION, HYPERGLYCEMIA, LEFT LOWER Physical Exam Vital Signs: Temp Pulse Resp BP Pulse Ox 97.2 F 92 22 H 160/80 H 95 05/15/17 07:46 05/15/17 08:57 05/15/17 08:57 05/15/17 07:46 05/15/17 08:57 Intake & Output 05/14/17 05/15/17 05/16/17 06:59 06:59 06:59 Intake Total 3360 1855 Output Total 945 650 Balance 2415 1205 Weight 82.4 kg 86.2 kg General appearance: PRESENT: no acute distress Eye exam: PRESENT: conjunctiva pink. ABSENT: scleral icterus Mouth exam: PRESENT: moist, tongue midline Neck exam: ABSENT: JVD Respiratory exam: PRESENT: clear to auscultation lauren. ABSENT: rales, rhonchi, wheezes Cardiovascular exam: PRESENT: RRR. ABSENT: diastolic murmur, rubs, systolic murmur GI/Abdominal exam: PRESENT: normal bowel sounds, soft. ABSENT: distended, guarding, mass, organolmegaly, rebound, tenderness Extremities exam: ABSENT: calf tenderness, clubbing, pedal edema Neurological exam: PRESENT: altered, awake Psychiatric exam: PRESENT: agitated Results Laboratory Results: 05/15/17 05:10 05/15/17 05:10 05/15/17 05/15/17 05:10 05:10 WBC 9.8 RBC 3.94 Hgb 10.6 L Hct 34.1 L MCV 87 MCH 26.8 L MCHC 30.9 L RDW 18.0 H Plt Count 343 Seg Neutrophils % Not Reportable Lymphocytes % Not Reportable Monocytes % Not Reportable Eosinophils % Not Reportable Basophils % Not Reportable Absolute Neutrophils Not Reportable Absolute Lymphocytes Not Reportable Absolute Monocytes Not Reportable Absolute Eosinophils Not Reportable Absolute Basophils Not Reportable Sodium 141.0 Potassium 4.7 Chloride 110 H Carbon Dioxide 23 Anion Gap 8 BUN 32 H Creatinine 1.10 Est GFR ( Amer) 59 L Est GFR (Non-Af Amer) 49 L Glucose 275 H Calcium 8.3 L 05/10/17 07:58 Blood Blood Culture - Final NO GROWTH IN 5 DAYS 05/10/17 05:15 Blood Blood Culture - Final NO GROWTH IN 5 DAYS 05/10/17 05:15 Creatine Kinase 23 L Impressions: Cervical Spine CT 05/10/17 02:40 IMPRESSION: 1. No acute fracture or subluxation of the cervical spine. This exam was performed according to our departmental dose-optimization program, which includes automated exposure control, adjustment of the mA and/or kV according to patient size and/or use of iterative reconstruction technique. Chest X-Ray 05/10/17 02:40 IMPRESSION: 1. Interval increase in bilateral interstitial opacities which may be related to pulmonary edema. Head CT 05/10/17 02:40 IMPRESSION: 1. No acute intracranial abnormality by CT criteria. This exam was performed according to our departmental dose-optimization program, which includes automated exposure control, adjustment of the mA and/or kV according to patient size and/or use of iterative reconstruction technique. Hip/Pelvis X-Ray 05/10/17 02:42 IMPRESSION: 1. No acute fracture identified. Assessment & Plan - Diagnosis (1) COPD exacerbation Is this a current diagnosis for this admission?: Yes Plan: Patient continues to be hypoxic without supplemental oxygen. We will continue with Solu-Medrol, antibiotics and nebulizers. (2) Pneumonia Qualifiers: Pneumonia type: due to unspecified organism Laterality: unspecified laterality Lung location: unspecified part of lung Qualified Code(s): J18.9 - Pneumonia, unspecified organism Is this a current diagnosis for this admission?: Yes Plan: Cultures are negative so far. We will continue with the Rocephin and Levaquin. (3) Cellulitis Qualifiers: Site of cellulitis: extremity Site of cellulitis of extremity: lower extremity Qualified Code(s): L03.116 - Cellulitis of left lower limb Is this a current diagnosis for this admission?: Yes Plan: Patient has cellulitis of the leg. Continue with Rocephin and Levaquin. (4) Acute metabolic encephalopathy Is this a current diagnosis for this admission?: Yes Plan: Patient is confused. Most likely from delirium tremens given that her infection is improving. (5) Acute respiratory failure with hypoxemia Is this a current diagnosis for this admission?: Yes Plan: Most likely combination of both pneumonia and COPD exacerbation. (6) Alcohol abuse Is this a current diagnosis for this admission?: Yes Plan: Continue with Ativan as needed. (7) Anemia Qualifiers: Anemia type: unspecified type Qualified Code(s): D64.9 - Anemia, unspecified Is this a current diagnosis for this admission?: Yes Plan: Hemoglobin is stable. (8) Anxiety Is this a current diagnosis for this admission?: Yes Plan: Continue with Ativan as needed. (9) Diabetes Qualifiers: Diabetes mellitus type: type 2 Diabetes mellitus complication status: with unspecified complications Diabetes mellitus alf insulin use: with long term acute care registered nurse use Qualified Code(s): E11.8 - Type 2 diabetes mellitus with unspecified complications; Z79.4 - long term acute care registered nurse (current) use of insulin Is this a current diagnosis for this admission?: Yes Plan: Continue with sliding scale insulin. Will also start Lantus today. (10) Hypertension Qualifiers: Hypertension type: essential hypertension Qualified Code(s): I10 - Essential (primary) hypertension Is this a current diagnosis for this admission?: Yes Plan: Patient's blood pressure is still elevated. Will increase the diltiazem (11) Peripheral vascular disease Is this a current diagnosis for this admission?: Yes (12) Restless leg syndrome Is this a current diagnosis for this admission?: Yes - Time Time Spent with patient: 25-34 minutes - Inpatient Certification Medical Necessity: Need Close Monitoring Due to Risk of Patient Decompensation, Need for IV Antibiotics
[2017-05-15] MEDS: RIVAROXABAN 10 MG TABLET PO SCH (23:26)
[2017-05-15] MEDS: DIAZEPAM 5 MG TABLET PO SCH (23:27)
[2017-05-15] MEDS: ATORVASTATIN CALCIUM 10 MG TABLET PO SCH (23:27)
[2017-05-16] MEDS: METHYLPREDNISOLONE INJ 40 MG/1 ML SDV IV SCH ×2 (01:32→10:09)
[2017-05-16] MEDS: IPRATROPIUM/ALBUTEROL 0.5-2.5 MG/3 ML AMPUL NEB SCH ×4 (02:09→19:59)
[2017-05-16] MEDS: HALOPERIDOL LACTATE INJ 5 MG/1 ML VIAL IV PRN ×2 (02:47→10:09)
[2017-05-16] MEDS: LORAZEPAM INJ 2 MG/1 ML VIAL IV PRN ×3 (03:18→22:00)
[2017-05-16] MEDS: INSULIN LISPRO 100 UNIT/ML 3 ML VIAL SUBCUT PRN ×5 (03:49→23:43)
[2017-05-16] MEDS: LANSOPRAZOLE 15 MG TAB.RAP.DR PO SCH ×2 (05:39→16:48)
[2017-05-16 06:47] LABS: HEMATOCRIT 32.2 % (36.0-47.0); MEAN CORPUSCULAR HEMOGLOBIN 26.9 pg (27.0-33.4); MEAN CORPUSCULAR HGB CONC 31.1 g/dL (32.0-36.0); MEAN CORPUSCULAR VOLUME 87 fl (80-97); PLATELET COUNT 243 10^3/uL (150-450); RED BLOOD COUNT 3.72 10^6/uL (3.72-5.28); RED CELL DISTRIBUTION WIDTH 17.9 % (11.5-14.0); WHITE BLOOD COUNT 7.1 10^3/uL (4.0-10.5)
[2017-05-16 07:08] LABS: ANION GAP 7 (5-19); BLOOD UREA NITROGEN 36 mg/dL (7-20); CALCIUM 8.1 mg/dL (8.4-10.2); CARBON DIOXIDE 25 mmol/L (22-30); CHLORIDE 111 mmol/L (98-107); GLUCOSE 316 mg/dL (75-110); POTASSIUM 4.3 mmol/L (3.6-5.0); SODIUM 142.6 mmol/L (137-145)
[2017-05-16 08:03] LABS: ABSOLUTE LYMPHOCYTES# (MANUAL) 0.4 10^3/uL (0.5-4.7); ABSOLUTE NEUTROPHILS# (MANUAL) 6.7 10^3/uL (1.7-8.2); BASOPHILS % (MANUAL) 0 % (0-2); EOSINOPHILS % (MANUAL) 0 % (0-6); LYMPHOCYTES % (MANUAL) 5 % (13-45); MONOCYTES % (MANUAL) 0 % (3-13); SEGMENTED NEUTROPHILS % (MAN) 95 % (42-78); TOTAL CELLS COUNTED 100
[2017-05-16 08:04] LABS: ANISOCYTOSIS 1+; HYPOCHROMASIA 2+; PLATELET COMMENT ADEQUATE; ROULEAUX 1+
[2017-05-16] MEDS: CEFTRIAXONE 1 GM/D5W RTU 1 GM/50 ML RTUPB IV SCH (10:07)
[2017-05-16] MEDS: THIAMINE HCL 100 MG TABLET PO SCH (10:07)
[2017-05-16] MEDS: LORAZEPAM 1 MG TABLET PO SCH (10:08)
[2017-05-16] MEDS: DILTIAZEM HCL 180 MG CAPSULE.CR PO SCH (10:08)
[2017-05-16] MEDS: LEVOFLOXACIN 750 MG TABLET PO SCH (10:08)
[2017-05-16] MEDS: FOLIC ACID 1 MG TABLET PO SCH (10:08)
[2017-05-16] MEDS: GUAIFENESIN 600 MG TABLET.SA PO SCH ×2 (10:09→22:13)
--- NOTE | 2017-05-16 10:34 | PDOC PROGRESS REPORT ---
Subjective Progress Note for:: 05/16/17 Subjective:: Patient is confused. Reason For Visit: COPD EXACERBATION, HYPERGLYCEMIA, LEFT LOWER Physical Exam Vital Signs: Temp Pulse Resp BP Pulse Ox 98.4 F 97 18 184/87 H 98 05/16/17 08:34 05/16/17 09:24 05/16/17 09:24 05/16/17 08:34 05/16/17 09:24 Intake & Output 05/15/17 05/16/17 05/17/17 06:59 06:59 06:59 Intake Total 1855 430 Output Total 650 1250 Balance 1205 -820 Weight 86.2 kg 86 kg General appearance: PRESENT: no acute distress Eye exam: PRESENT: conjunctiva pink. ABSENT: scleral icterus Mouth exam: PRESENT: moist, tongue midline Neck exam: ABSENT: JVD Respiratory exam: PRESENT: clear to auscultation lauren. ABSENT: rales, rhonchi, wheezes Cardiovascular exam: PRESENT: RRR. ABSENT: diastolic murmur, rubs, systolic murmur GI/Abdominal exam: PRESENT: normal bowel sounds, soft. ABSENT: distended, guarding, mass, organolmegaly, rebound, tenderness Extremities exam: ABSENT: calf tenderness, clubbing, pedal edema Neurological exam: PRESENT: awake, oriented to person, oriented to place. ABSENT: oriented to time, oriented to situation Psychiatric exam: PRESENT: anxious Skin exam: PRESENT: erythema Results Laboratory Results: 05/16/17 05:40 05/16/17 05:40 05/16/17 05/16/17 05:40 05:40 WBC 7.1 RBC 3.72 Hgb 10.0 L Hct 32.2 L MCV 87 MCH 26.9 L MCHC 31.1 L RDW 17.9 H Plt Count 243 Seg Neutrophils % Not Reportable Lymphocytes % Not Reportable Monocytes % Not Reportable Eosinophils % Not Reportable Basophils % Not Reportable Absolute Neutrophils Not Reportable Absolute Lymphocytes Not Reportable Absolute Monocytes Not Reportable Absolute Eosinophils Not Reportable Absolute Basophils Not Reportable Sodium 142.6 Potassium 4.3 Chloride 111 H Carbon Dioxide 25 Anion Gap 7 BUN 36 H Creatinine 1.16 Est GFR ( Amer) 56 L Est GFR (Non-Af Amer) 46 L Glucose 316 H Calcium 8.1 L 05/10/17 07:58 Blood Blood Culture - Final NO GROWTH IN 5 DAYS 05/10/17 05:15 Creatine Kinase 23 L Impressions: Cervical Spine CT 05/10/17 02:40 IMPRESSION: 1. No acute fracture or subluxation of the cervical spine. This exam was performed according to our departmental dose-optimization program, which includes automated exposure control, adjustment of the mA and/or kV according to patient size and/or use of iterative reconstruction technique. Chest X-Ray 05/10/17 02:40 IMPRESSION: 1. Interval increase in bilateral interstitial opacities which may be related to pulmonary edema. Head CT 05/10/17 02:40 IMPRESSION: 1. No acute intracranial abnormality by CT criteria. This exam was performed according to our departmental dose-optimization program, which includes automated exposure control, adjustment of the mA and/or kV according to patient size and/or use of iterative reconstruction technique. Hip/Pelvis X-Ray 05/10/17 02:42 IMPRESSION: 1. No acute fracture identified. Assessment & Plan - Diagnosis (1) COPD exacerbation Is this a current diagnosis for this admission?: Yes Plan: Patient continues to be hypoxic without supplemental oxygen. We will change from Solu-Medrol to prednisone and continue with antibiotics and nebulizers. (2) Pneumonia Qualifiers: Pneumonia type: due to unspecified organism Laterality: unspecified laterality Lung location: unspecified part of lung Qualified Code(s): J18.9 - Pneumonia, unspecified organism Is this a current diagnosis for this admission?: Yes Plan: Cultures are negative so far. We will continue with the Rocephin and Levaquin. (3) Cellulitis Qualifiers: Site of cellulitis: extremity Site of cellulitis of extremity: lower extremity Qualified Code(s): L03.116 - Cellulitis of left lower limb Is this a current diagnosis for this admission?: Yes Plan: Patient has cellulitis of the leg. Continue with Rocephin and Levaquin. (4) Acute metabolic encephalopathy Is this a current diagnosis for this admission?: Yes Plan: Patient is confused. Most likely from delirium tremens given that her infection is improving. Will check an ammonia level today to make certain that that is not the cause of her mental status changes. We will go ahead and start lactulose empirically. (5) Acute respiratory failure with hypoxemia Is this a current diagnosis for this admission?: Yes Plan: Most likely combination of both pneumonia and COPD exacerbation. (6) Alcohol abuse Is this a current diagnosis for this admission?: Yes Plan: Continue with Ativan as needed. (7) Anemia Qualifiers: Anemia type: unspecified type Qualified Code(s): D64.9 - Anemia, unspecified Is this a current diagnosis for this admission?: Yes Plan: Hemoglobin is stable. (8) Anxiety Is this a current diagnosis for this admission?: Yes Plan: Continue with Ativan as needed. We will stop the Elavil and Haldol as per psychiatrist recommendations. 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 Will also continue with Lantus (10) Hypertension Qualifiers: Hypertension type: essential hypertension Qualified Code(s): I10 - Essential (primary) hypertension Is this a current diagnosis for this admission?: Yes Plan: Patient's blood pressure is still elevated. Will continue with the diltiazem (11) Peripheral vascular disease Is this a current diagnosis for this admission?: Yes (12) Restless leg syndrome Is this a current diagnosis for this admission?: Yes - Time Time Spent with patient: 25-34 minutes - Inpatient Certification Medical Necessity: Need Close Monitoring Due to Risk of Patient Decompensation, Need for IV Antibiotics
[2017-05-16] MEDS: NYSTATIN TOPICAL POWDER 15 GM TP SCH ×2 (11:16→18:32)
[2017-05-16] MEDS: NYSTATIN CREAM 15 GM TP SCH ×2 (11:16→18:32)
[2017-05-16] MEDS: LACTULOSE SYRUP 20 GM/30 ML UDCUP PO SCH ×2 (13:39→18:31)
[2017-05-16] MEDS: RIVAROXABAN 10 MG TABLET PO SCH (21:52)
[2017-05-16] MEDS: ATORVASTATIN CALCIUM 10 MG TABLET PO SCH (21:52)
[2017-05-16] MEDS: INSULIN GLARGINE,HUM.REC.ANLOG 300 UNIT/3 ML INSULN.PEN SUBCUT SCH (21:55)
[2017-05-17] MEDS: IPRATROPIUM/ALBUTEROL 0.5-2.5 MG/3 ML AMPUL NEB SCH ×4 (01:49→20:23)
[2017-05-17] MEDS: LORAZEPAM INJ 2 MG/1 ML VIAL IV PRN ×3 (02:20→23:29)
[2017-05-17] MEDS: IBUPROFEN 400 MG TABLET PO PRN (05:06)
[2017-05-17] MEDS: LANSOPRAZOLE 15 MG TAB.RAP.DR PO SCH ×2 (05:07→19:02)
[2017-05-17] MEDS: DIPHENHYDRAMINE HCL 25 MG CAPSULE PO PRN ×2 (05:07→23:28)
[2017-05-17 06:03] LABS: HEMOGLOBIN 10.9 g/dL (12.0-15.5); WHITE BLOOD COUNT 9.7 10^3/uL (4.0-10.5)
[2017-05-17 06:04] LABS: ABSOLUTE LYMPHOCYTES (AUTO) 0.5 10^3/uL (0.5-4.7); ABSOLUTE MONOCYTES (AUTO) 0.7 10^3/uL (0.1-1.4); ABSOLUTE NEUT (AUTO) 8.5 10^3/uL (1.7-8.2); BASOPHILS % (AUTO) 0.1 % (0-2); HEMATOCRIT 34.9 % (36.0-47.0); LYMPHOCYTES % (AUTO) 5.4 % (13-45); MEAN CORPUSCULAR HEMOGLOBIN 26.5 pg (27.0-33.4); MEAN CORPUSCULAR HGB CONC 31.1 g/dL (32.0-36.0); MEAN CORPUSCULAR VOLUME 85 fl (80-97); MONOCYTES % (AUTO) 6.9 % (3-13); PLATELET COUNT 322 10^3/uL (150-450); RED CELL DISTRIBUTION WIDTH 18.2 % (11.5-14.0); SEGMENTED NEUTROPHILS % (AUTO) 87.6 % (42-78); TOTAL CELLS COUNTED % (AUTO) 100 %
[2017-05-17 06:17] LABS: ANION GAP 7 (5-19); BLOOD UREA NITROGEN 34 mg/dL (7-20); CALCIUM 8.7 mg/dL (8.4-10.2); CARBON DIOXIDE 27 mmol/L (22-30); CHLORIDE 113 mmol/L (98-107); GLUCOSE 186 mg/dL (75-110); POTASSIUM 4.1 mmol/L (3.6-5.0); SODIUM 146.6 mmol/L (137-145)
[2017-05-17] MEDS: INSULIN LISPRO 100 UNIT/ML 3 ML VIAL SUBCUT PRN ×4 (08:01→23:20)
[2017-05-17] MEDS: HYDRALAZINE HCL INJ/PF 20 MG/1 ML SDV IV PRN (08:01)
--- NOTE | 2017-05-17 09:43 | PSYCHOLOGICAL NOTE ---
Psych Note - Psych Note Psych Note: This is a Capacity Evaluation Patient is a 71-year-old female who presented to the [facility] Emergency Department on 05/10/2017 via EMS for falling out of bed resulting in right hip and neck pain. She was subsequently admitted for Chronic Obstructive Pulmonary Disease (COPD) exacerbation, cellulitis, pneumonia, acute respiratory failure with hypoxemia, fall, acute metabolic encephalopathy, alcohol abuse, anemia, continuous tobacco abuse, DVT prophylaxis, depression, diabetes type 2 uncontrolled, and peripheral vascular disease. Her current problem list included 56 items. Patients medical insurance is [employer] Medicare and [employer]. Patient resides at a private residence alone. She has a neighbor/friend listed as emergency contact whom she only wants contacted in an emergency. Discharge planning has been involved and provided patient with information on life alert and the operations intern program. Once the topic of assisted living or penitentiary facility came up, patient shut down and said she did not want to talk anymore since there was so much going on. Today medical staff described patient as oriented but not rational. Review of chart revealed Patients medical history is positive for COPD, Insulin dependent diabetes, alcohol use, tobacco use, and medication noncompliance. Home medications include a list of seven with Elavil 25MG every 8 hours as needed being the only psychiatric medication. While in the hospital she has been administered 24 medications. Of that the psychiatric medication is Elavil 25MG every 8 hours as needed, Valium 5MG at bedtime, and Ativan 1MG intravenous every four hours as needed as well as 2MG by mouth 3 times a day. She has been coming to [facility] since 2013. She had one visit in January 2014 for low blood sugar. She had two visits in April 2016, one appeared to be related to lab tests and the other was right hip, head, and neck fracture related to fall. She has now had seven visits in 2017 with the following presenting problems: cellulites of lower extremity, alcohol, hip fracture, Urinary Tract Infection, COPD exacerbation and acute hypoxemia, alcohol/ hyperglycemia/Falls/COPD, and current. A Head CT dated 05/10/17 had the following findings: ventricular system and sulcal spaces mildly enlarged compatible with mild cerebral atrophy, scattered areas of hypo-density throughout the supratentorial white matter nonspecific and related to chronic small vessel ischemic change and atherosclerotic calcification of the intracranial internal carotid arteries. Report language suggests neurodegenerative processes as seen in dementia, is irreversible and typically worsens with age as well as continued alcohol use. Current visit noted patient presented to the emergency department confused but improved after being on BiPAP. She is a poor historian and admitted to drinking alcohol 05/10/17 at 2100. A capacity evaluation was requested by the hospitalist due to medical staff ( trying to leave against medical advice which resulted in oxygen saturation of 60 %) concerns for patients ability to have sound decision making. The role of a capacity evaluation is to assess and measure a Patients abstract/rational level of thinking, executive functioning/planning/sequencing, executive functioning/switching, attention, orientation, safety/problem solving, memory, ability to complete daily living activities, and safety awareness. During the capacity evaluation patient presented calm, at first guarded, but cooperative. She was against the questioning from the start but clinician moved forward and patient did answer questions when addressed. She remained lying in bed and eating dinner. She was alert and oriented to person, place, time, and circumstance. Mood was euthymic with congruent affect. Patient denied current suicidal / homicidal ideations and no statements or gestures were made regarding suicidal and homicidal intent or plan. She did not appear to be responding to internal stimuli as evidenced by fair eye contact, answering questions with appropriate responses, staying on topic and carrying on dialogue conversation. Thought processes were linear, logical, organized, and more abstract versus concrete. Conversational speech was within normal limits for rate, tone and prosody. Intellectual abilities were estimated within the average range. Insight, judgment, and impulse control were fair as evidenced by her knowledge of her medications and medical conditions. Patient correctly answered 10 of 11 orientation questions with last 3 presidents being the only wrong answer (Barack OBama, Barack OBama, Bill Marcello). She correctly answered 2 of 3 higher cortical abstract reasoning questions in which Patient is required to describe how two items are similar. These results suggested fairly intact abstract thinking abilities with the capacity to employ skills necessary to navigate the nuances of conversation and activities. Patient repeated the name of 3-common objects after examiner instruction, could recall 3 of the 3 items after 1-minute delay and 2/3 after 5- minute delay. She accurately spelled the word world forward and backward with what appeared minimal concentration. Patients problem solving for questions regarding personal safety or the safety of others was poor given poor problem solving of personal safety issues. The Patient was administered the Clock Drawing Test, a standardized and peer reviewed measure of dementia. She was eating throughout the screening and refused to do the clock drawing before all instruction could even be given. She did use her sandwich bun as a face of a clock then accurately pointed to anchor points with her finger (said them out loud while pointing) 12, 3, 6, 9 and repeated 12. She did not say or do anything for any other numbering. She was given final instruction of hand placement and said she did not have enough mash potatoes (to represent, was one of her side dishes). In terms of her ability to complete tasks of everyday living (e.g., mobility, bathing, cooking, grocery shopping, taking medications appropriately, etc.), the clinician observed Patient in the same lying position in bed during the entire assessment. She stated she could stand and walk without assistance. She then went on a tangent about how she ended up at the hospital (having wet the bed, difficulty getting out of bed due to feeling weak, getting out of bed going to another room of the home, drinking scotch, going back to bed, not able to change sheets due to weakness, getting back in to bed which was wet, and finally falling when tried to get out). She reported she can dress and bathe herself. Observed patient manipulate eating utensils while she ate dinner. Patient reported she has a drivers license and drives a [employer]. She stated she cooks for herself, admitted she does not like cooking, and typically stocks up on microwavable items. She stated she does for herself or her neighbor/friend/emergency contact helps. Patient provided medication and/or medical issue names. She identified she takes Lantus, Solostar, 40 units twice a day for diabetes 2. She stated her high blood pressure and cholesterol were under control. She described two instances in the past where she fell both times having been in the kitchen, both resulting in injures/concern (broken hip , having been on the floor unable to do anything for 12 hours). She mentioned having been in the hospital recently for Pneumonia. She stated she had her left big toe amputated after she used scissors to remove ingrown toenail, slipped, contacted EMS, EMS persuaded her to go to her primary physician, when she did ( unsure of timeframe) she said she could smell it. 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 Impression: The Patient is a 71-year-old female with a history of COPD and continued tobacco use, alcohol abuse, falling, and diabetes. She has been to the [facility] Emergency Department (ED) 7 times this year with this visit being a readmit. She tried to leave against medical advice yesterday (05/10/19) after being told it could be detrimental to her health. She was on oxygen and continued to move forward with leaving so when she removed oxygen her saturation decreased to 60% . She had to be encouraged to come back. She lives alone and a support resource is her neighbor who lives 2.5 miles from her. She stated they interact daily ( talk on the phone or hang out). Concerns center around her ability to make sound decisions and take care of daily needs. Overall, results of the current evaluation revealed almost unremarkable orientation to present and items of knowledge, abstract thinking patterns, good memory, good sequencing, good organizational abilities, poor impulse control ( doing what she wants how she wants as evidenced by cocking drawing exercise), poor safety and problem solving and difficulty completing own ADLs given weakened state and several significant medical issues. Her Head CT dated is suggestive of neurodegenerative processes as seen in dementia which will inevitably affect the already poor impulse control, poor problem solving and ability to complete own ADLS as she ages and will only be further exacerbated by continued alcohol abuse. Subsequently there is concern since these interfere with patients ability to safely navigate her environment or make decisions that are in her best interest as well as make her vulnerable. It is with a reasonable degree of medical and clinical certainty, the Patient would benefit from a responsible and reliable healthcare power of state attorney and/ or payee to manage her medical, financial, legal, and personal affairs. She would benefit from in-home care where medical/nursing staff is there during waking hours to maintain her safety and assist with activities of daily living. The following diagnoses are offered: DIAGNOSES: 1. 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 303.90 (F10.20) Alcohol Use Disorder, Moderate 3. Acute metabolic encephalopathy 4. COPD exacerbation 5. Acute Respiratory failure with hypoxemia 6. Diabetes Type 2 uncontrolled 7. Cellulitis of leg extremity RECOMMENDATIONS: 1. A responsible and reliable healthcare power of state attorney and/or payee is recommended to manage medical, financial, legal, and personal affairs. 2. Psychiatric consultation with a provider is recommended to manage reported and documented depression. 3. Neurological consultation with a provider is recommended since Head CT language suggest chronic neurodegenerative process which will worsen with age and continued alcohol intake. 4. Driving privileges should be evaluated. 5. Patient would benefit from In-Home Health where she can maintain independence while ensuring her basic needs are being met. Consulted with Dr. Arthur regarding this capacity evaluation and she is in agreement with the findings and recommendations.
[2017-05-17] MEDS: LEVOFLOXACIN 750 MG TABLET PO SCH (10:41)
[2017-05-17] MEDS: CEFTRIAXONE 1 GM/D5W RTU 1 GM/50 ML RTUPB IV SCH (10:42)
[2017-05-17] MEDS: LACTULOSE SYRUP 20 GM/30 ML UDCUP PO SCH ×3 (10:42→19:02)
[2017-05-17] MEDS: FOLIC ACID 1 MG TABLET PO SCH (10:42)
[2017-05-17] MEDS: GUAIFENESIN 600 MG TABLET.SA PO SCH ×2 (10:42→23:19)
[2017-05-17] MEDS: DILTIAZEM HCL 180 MG CAPSULE.CR PO SCH (10:42)
[2017-05-17] MEDS: PREDNISONE 20 MG TABLET PO SCH (10:42)
[2017-05-17] MEDS: THIAMINE HCL 100 MG TABLET PO SCH (10:42)
[2017-05-17] MEDS: NYSTATIN TOPICAL POWDER 15 GM TP SCH ×2 (10:42→19:01)
[2017-05-17] MEDS: NYSTATIN CREAM 15 GM TP SCH ×2 (10:43→19:01)
--- NOTE | 2017-05-17 12:47 | PDOC PROGRESS REPORT ---
Subjective Progress Note for:: 05/17/17 Subjective:: 71-year-old female who hypoxia after falling out of bed and being brought in by EMS. She was found to have an acute COPD exacerbation as well as pneumonia. Patient has been treated with presented with antibiotics and cultures have been negative. The patient also has a long history of alcohol abuse and has had some confusion. Head CT was done initially was negative. The patient has no history of cirrhosis but was started on lactulose with minimal change in her mental status. The patient's pneumonia and COPD has clinically improved however she continues to have confusion. Is felt this most likely is secondary to her chronic alcohol use. Reason For Visit: COPD EXACERBATION, HYPERGLYCEMIA, LEFT LOWER Physical Exam Vital Signs: Temp Pulse Resp BP Pulse Ox 97.7 F 102 H 18 177/87 H 96 05/17/17 07:29 05/17/17 07:55 05/17/17 07:55 05/17/17 07:29 05/17/17 07:29 Intake & Output 05/16/17 05/17/17 05/18/17 06:59 06:59 06:59 Intake Total 430 550 Output Total 1250 1500 Balance -820 -950 Weight 86 kg 83 kg General appearance: PRESENT: no acute distress Eye exam: PRESENT: conjunctiva pink. ABSENT: scleral icterus Mouth exam: PRESENT: moist, tongue midline Neck exam: ABSENT: JVD Respiratory exam: PRESENT: clear to auscultation lauren. ABSENT: rales, rhonchi, wheezes Cardiovascular exam: PRESENT: RRR. ABSENT: diastolic murmur, rubs, systolic murmur GI/Abdominal exam: PRESENT: normal bowel sounds, soft. ABSENT: distended, guarding, mass, organolmegaly, rebound, tenderness Extremities exam: ABSENT: calf tenderness, clubbing, pedal edema Neurological exam: PRESENT: awake, oriented to person, oriented to place. ABSENT: oriented to time, oriented to situation Psychiatric exam: PRESENT: anxious Results Laboratory Results: 05/17/17 05:33 05/17/17 05:33 05/17/17 05/17/17 05:33 05:33 WBC 9.7 RBC 4.10 Hgb 10.9 L Hct 34.9 L MCV 85 MCH 26.5 L MCHC 31.1 L RDW 18.2 H Plt Count 322 Seg Neutrophils % 87.6 H Lymphocytes % 5.4 L Monocytes % 6.9 Eosinophils % 0.0 Basophils % 0.1 Absolute Neutrophils 8.5 H Absolute Lymphocytes 0.5 Absolute Monocytes 0.7 Absolute Eosinophils 0.0 Absolute Basophils 0.0 Sodium 146.6 H Potassium 4.1 Chloride 113 H Carbon Dioxide 27 Anion Gap 7 BUN 34 H Creatinine 1.03 Est GFR ( Amer) > 60 Est GFR (Non-Af Amer) 53 L Glucose 186 H Calcium 8.7 05/10/17 05:15 Creatine Kinase 23 L Impressions: Cervical Spine CT 05/10/17 02:40 IMPRESSION: 1. No acute fracture or subluxation of the cervical spine. This exam was performed according to our departmental dose-optimization program, which includes automated exposure control, adjustment of the mA and/or kV according to patient size and/or use of iterative reconstruction technique. Chest X-Ray 05/10/17 02:40 IMPRESSION: 1. Interval increase in bilateral interstitial opacities which may be related to pulmonary edema. Head CT 05/10/17 02:40 IMPRESSION: 1. No acute intracranial abnormality by CT criteria. This exam was performed according to our departmental dose-optimization program, which includes automated exposure control, adjustment of the mA and/or kV according to patient size and/or use of iterative reconstruction technique. Hip/Pelvis X-Ray 05/10/17 02:42 IMPRESSION: 1. No acute fracture identified. Assessment & Plan - Diagnosis (1) COPD exacerbation Is this a current diagnosis for this admission?: Yes Plan: Patient continues to be hypoxic without supplemental oxygen. We will continue prednisone with antibiotics and nebulizers. (2) Pneumonia Qualifiers: Pneumonia type: due to unspecified organism Laterality: unspecified laterality Lung location: unspecified part of lung Qualified Code(s): J18.9 - Pneumonia, unspecified organism Is this a current diagnosis for this admission?: Yes Plan: Cultures are negative so far. We will continue with the Rocephin and Levaquin. (3) Cellulitis Qualifiers: Site of cellulitis: extremity Site of cellulitis of extremity: lower extremity Qualified Code(s): L03.116 - Cellulitis of left lower limb Is this a current diagnosis for this admission?: Yes Plan: Patient has cellulitis of the leg. Continue with Rocephin and Levaquin. (4) Acute metabolic encephalopathy Is this a current diagnosis for this admission?: Yes Plan: Patient is confused. Most likely from delirium tremens given that her infection is improving. Ammonia level was negative. He was started on lactulose prior to the normal ammonia level. We will continue it for now. (5) Acute respiratory failure with hypoxemia Is this a current diagnosis for this admission?: Yes Plan: Most likely combination of both pneumonia and COPD exacerbation. (6) Alcohol abuse Is this a current diagnosis for this admission?: Yes Plan: Continue with Ativan as needed. (7) Anemia Qualifiers: Anemia type: unspecified type Qualified Code(s): D64.9 - Anemia, unspecified Is this a current diagnosis for this admission?: Yes Plan: Hemoglobin is stable. (8) Anxiety Is this a current diagnosis for this admission?: Yes Plan: Continue with Ativan as needed. We will stop the Elavil and Haldol as per psychiatrist recommendations. 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 Will also continue with Lantus (10) Hypertension Qualifiers: Hypertension type: essential hypertension Qualified Code(s): I10 - Essential (primary) hypertension Is this a current diagnosis for this admission?: Yes Plan: Will continue with the diltiazem (11) Peripheral vascular disease Is this a current diagnosis for this admission?: Yes (12) Restless leg syndrome Is this a current diagnosis for this admission?: Yes - Time Time Spent with patient: 25-34 minutes - Inpatient Certification Medical Necessity: Need Close Monitoring Due to Risk of Patient Decompensation
[2017-05-17] MEDS: INSULIN GLARGINE,HUM.REC.ANLOG 300 UNIT/3 ML INSULN.PEN SUBCUT SCH (23:20)
[2017-05-17] MEDS: RIVAROXABAN 10 MG TABLET PO SCH (23:21)
[2017-05-17] MEDS: ATORVASTATIN CALCIUM 10 MG TABLET PO SCH (23:22)
[2017-05-18] MEDS: IPRATROPIUM/ALBUTEROL 0.5-2.5 MG/3 ML AMPUL NEB SCH ×2 (01:56→07:53)
[2017-05-18 06:16] LABS: ABSOLUTE BASOPHILS # (AUTO) 0.1 10^3/uL (0.0-0.2); ABSOLUTE LYMPHOCYTES (AUTO) 0.6 10^3/uL (0.5-4.7); ABSOLUTE MONOCYTES (AUTO) 0.6 10^3/uL (0.1-1.4); ABSOLUTE NEUT (AUTO) 8.5 10^3/uL (1.7-8.2); BASOPHILS % (AUTO) 0.6 % (0-2); EOSINOPHILS % (AUTO) 0.2 % (0-6); HEMATOCRIT 37.4 % (36.0-47.0); HEMOGLOBIN 11.6 g/dL (12.0-15.5); LYMPHOCYTES % (AUTO) 5.7 % (13-45); MEAN CORPUSCULAR HEMOGLOBIN 26.2 pg (27.0-33.4); MEAN CORPUSCULAR HGB CONC 31.1 g/dL (32.0-36.0); MEAN CORPUSCULAR VOLUME 84 fl (80-97); MONOCYTES % (AUTO) 6.3 % (3-13); PLATELET COUNT 257 10^3/uL (150-450); RED BLOOD COUNT 4.43 10^6/uL (3.72-5.28); RED CELL DISTRIBUTION WIDTH 18.2 % (11.5-14.0); SEGMENTED NEUTROPHILS % (AUTO) 87.2 % (42-78); TOTAL CELLS COUNTED % (AUTO) 100 %; WHITE BLOOD COUNT 9.8 10^3/uL (4.0-10.5)
[2017-05-18 06:19] LABS: ANION GAP 5 (5-19); BLOOD UREA NITROGEN 33 mg/dL (7-20); CALCIUM 8.2 mg/dL (8.4-10.2); CARBON DIOXIDE 30 mmol/L (22-30); CHLORIDE 110 mmol/L (98-107); GLUCOSE 293 mg/dL (75-110); POTASSIUM 4.1 mmol/L (3.6-5.0); SODIUM 145.1 mmol/L (137-145)
[2017-05-18] MEDS: LANSOPRAZOLE 15 MG TAB.RAP.DR PO SCH ×2 (06:50→17:59)
[2017-05-18] MEDS: INSULIN LISPRO 100 UNIT/ML 3 ML VIAL SUBCUT PRN ×3 (07:45→23:33)
[2017-05-18] MEDS: LACTULOSE SYRUP 20 GM/30 ML UDCUP PO SCH ×3 (09:29→17:57)
[2017-05-18] MEDS: GUAIFENESIN 600 MG TABLET.SA PO SCH ×2 (09:29→23:24)
[2017-05-18] MEDS: FOLIC ACID 1 MG TABLET PO SCH (09:29)
[2017-05-18] MEDS: PREDNISONE 20 MG TABLET PO SCH (09:30)
[2017-05-18] MEDS: DILTIAZEM HCL 180 MG CAPSULE.CR PO SCH (09:30)
[2017-05-18] MEDS: CEFTRIAXONE 1 GM/D5W RTU 1 GM/50 ML RTUPB IV SCH (09:31)
[2017-05-18] MEDS: NYSTATIN CREAM 15 GM TP SCH ×2 (09:32→17:58)
[2017-05-18] MEDS: NYSTATIN TOPICAL POWDER 15 GM TP SCH (09:32)
[2017-05-18] MEDS: THIAMINE HCL 100 MG TABLET PO SCH (09:33)
[2017-05-18] MEDS ORDERED: HYDRALAZINE HCL INJ/PF 20 MG/1 ML SDV IV PRN (10:49)
[2017-05-18] MEDS ORDERED: FUROSEMIDE INJ/PF 40 MG/4 ML SDV IV PRN (11:15)
--- NOTE | 2017-05-18 11:28 | PROGRESS NOTE E ---
Progress Note NAME: VIVEK MAGUIRE : 1945 AGE: 71Y DATE: 05/18/2017 ROOM: 327 SUBJECTIVE: The patient is currently lying in bed. The patient is awake, alert to place and situation, but not oriented on the details. The patient denied any nausea or vomiting. The patient was quite confused overnight and did require restraints. The patient is uncertain as to why she is in the hospital. The patient has been afebrile. Her blood pressures remained elevated and the patient is unable to voice any specific concerns at this time. REVIEW OF SYSTEMS: The rest of the review of systems is unobtainable, given the patient's mental status. MEDICATIONS: Reviewed. OBJECTIVE: GENERAL: The patient is a 71-year-old female, who is awake, alert. She is oriented to place. Not fully oriented to situation. She does not appear to be distressed. VITAL SIGNS: Temperature is 97.6, pulse 85 and respirations 16. Blood pressure is 184/88. Oxygen saturation is 100% on 4 liters nasal cannula. SKIN: Warm and dry. No rash. She is no diaphoretic. HEENT: Pupils equal, round and reactive to light and accommodation. Conjunctivae are pink. There is no JVP. CARDIOVASCULAR: Heart is regular. There is no rub. CHEST: Diminished, symmetrical, unlabored. ABDOMEN: Soft, nontender. Bowel sounds are present. EXTREMITIES: Patient does have third spacing weeping edema of the upper extremities. PSYCHIATRIC: Patient is confused at times. DIAGNOSTICS: Lab values are as follows: Hematology obtained on 05/18/2017: WBCs are 9.8, hemoglobin 7.6, hematocrit 37.4, platelet count is 257,000. Chemistry obtained on 05/18/2017: Sodium is 135, potassium is 4.1, chloride is 110, carbon dioxide is 30, BUN 33, creatinine is 1.03, glucose 293, calcium is 8.2. IMPRESSION AND PLAN: 1. CHRONIC OBSTRUCTIVE PULMONARY DISEASE EXACERBATION. The patient is requiring supplemental O2; however, this can be titrated. Will begin to taper steroids and continue on nebulizers. 2. ACUTE ON CHRONIC HYPOXEMIC RESPIRATORY FAILURE. Overall, appears to be improved. 3. CELLULITIS OF THE LEFT LOWER EXTREMITY. This appears to have resolved. 4. ALCOHOL DEPENDENCY, CONTINUOUS. The patient may have symptoms of withdrawal. Will continue Ativan, B vitamin supplementation and supportive therapy. 5. ACUTE METABOLIC ENCEPHALOPATHY, POSSIBLY TOXIC ENCEPHALOPATHY, DUE TO ALCOHOL. This could be just due to delirium tremens. Ammonia level is negative. Will follow. 6. DIABETES MELLITUS, TYPE 2. The patient's blood glucose does remain significantly elevated. Will increase Lantus. 7. HYPERTENSION. The patient remains persistently hypertensive. Could be due to DTs. Will add Nadolol and continue p.r.n. coverage with hydralazine. 8. PERIPHERAL VASCULAR DISEASE. Will continue aspirin. 9. THIRD SPACING EDEMA. The patient may have an underlying nephrotic syndrome. The patient is persistently spilling protein in her urine and album is quite low. The patient's creatinine does appear to be relatively stable, but we will monitor this closely and follow. DISPOSITION: The patient is a DO NOT RESUSCITATE/DO NOT INTUBATE, as the patient has voiced a desire for natural . Time spent on this followup, including assessment, plan, physical examination, patient education, review of previous and current medical records, is 35 minutes. DICTATING PHYSICIAN: MARIO FERNANDEZ NP [id number] PHY#: [id number] ID: [id number] JOB#: [id number] ACCT: [id number] cc: >
[2017-05-18] MEDS ORDERED: NADOLOL 40 MG TABLET PO ONE (11:30)
[2017-05-18] MEDS ORDERED: IPRATROPIUM/ALBUTEROL 0.5-2.5 MG/3 ML AMPUL NEB SCH (12:00)
[2017-05-18] MEDS: ALBUMIN HUMAN 50 ML IV SCH ×2 (13:05→14:06)
--- NOTE | 2017-05-18 16:23 | PROGRESS NOTE E ---
Progress Note NAME: VIVEK MAGUIRE : 1945 AGE: 71Y DATE: 05/18/2017 ROOM: 327 ADVANCE CARE PLANNING: The patient is a 71-year-old female with a past medical history of COPD, diabetes mellitus type 2, as well as chronic alcoholism. The patient was brought into the emergency department due to altered mental status. The patient was found to be in respiratory distress. Today is day 8 of the patient's admission and I have discussed with the patient her medical condition. The patient is alert and oriented to some things, but is not oriented to details. The patient describes herself as "having a drinking problem." The patient denies ever being diagnosed with cirrhosis; however, she feels "My liver is probably bad." In discussing the patient's overall clinic picture, the patient has expressed a desire for natural , stating that she does not want to be put on life support nor would she want any heroic measures. I did discuss DO NOT RESUSCITATE/DO NOT INTUBATE status with the patient and she is agreeable to this. I asked if she did want this discussed with anyone else, and the patient requested I speak with her best friend. At the patient's request, I called and discussed the case with Jon, who is her "damn good friend," as he describes himself. 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 He states that the patient does not have any family or anyone that could be her guardian; however, he stated to me that on numerous occasions, she has expressed to him that she would want a completely natural , and does not want "heroic stuff." Discussed artificial nutrition as well as respiration, chest compressions, and he is agreeable that this is not what the patient would want. Therefore, at this time, we will proceed with DO NOT RESUSCITATE status, and will continue with conservative management. Time spent on this advanced care planning, including patient and surrogate decision-maker education is 35 minutes. DICTATING PHYSICIAN: MARIO FERNANDEZ NP [id number] PHY#: [id number] ID: [id number] JOB#: [id number] ACCT: [id number] cc: >
[2017-05-18] MEDS: ATORVASTATIN CALCIUM 10 MG TABLET PO SCH (23:27)
[2017-05-18] MEDS: RIVAROXABAN 10 MG TABLET PO SCH (23:27)
[2017-05-18] MEDS: INSULIN GLARGINE,HUM.REC.ANLOG 300 UNIT/3 ML INSULN.PEN SUBCUT SCH (23:29)
--- NOTE | 2017-05-19 00:59 | RADIOLOGY REPORT (SQ) ---
EXAM DESCRIPTION: U/S ABDOMEN LIMITED W/O DOP CLINICAL HISTORY: ETOH, Cirrhosis? COMPARISON: None. TECHNIQUE: Real-time sonographic images of the right upper abdomen were obtained using a curved multihertz transducer. FINDINGS: The visualized portions of the pancreas are unremarkable. The visualized portions of the aorta and IVC are unremarkable. The liver has normal contour and coarse echogenicity. Hepatopedal flow in the portal vein. The common bile duct measures 0.5 cm. Wall bladder wall thickening. There is a 2.1 cm echogenic shadowing stone in the gallbladder lumen. Possible small amount of pericholecystic fluid. The right kidney measures 10.1 cm in length. There is a 1.5 cm hypoechoic structure with peripheral echogenic foci of indeterminate etiology in the interpolar right kidney. No hydronephrosis. Small amount of perihepatic and perinephric fluid. IMPRESSION: 1. Cholelithiasis with gallbladder wall thickening and possible pericholecystic fluid. This could be seen with acute cholecystitis. 2. In the interpolar right kidney there is a 1.5 cm hypoechoic structure with peripheral echogenic foci of indeterminate etiology. Correlation with contrast-enhanced CT or MRI recommended for definitive characterization. 3. Small amount of perinephric fluid. 4. Small amount of perihepatic ascites. 5. Coarse echogenicity of the liver. This could be seen with cirrhosis.
[2017-05-19] MEDS: LORAZEPAM INJ 2 MG/1 ML VIAL IV PRN ×3 (03:14→20:25)
[2017-05-19] MEDS: LANSOPRAZOLE 15 MG TAB.RAP.DR PO SCH ×2 (06:57→18:14)
[2017-05-19] MEDS ORDERED: NADOLOL 40 MG TABLET PO SCH (10:00)
[2017-05-19] MEDS ORDERED: PREDNISONE 20 MG TABLET PO SCH (10:00)
[2017-05-19] MEDS: LACTULOSE SYRUP 20 GM/30 ML UDCUP PO SCH ×3 (11:02→18:14)
[2017-05-19] MEDS: DILTIAZEM HCL 180 MG CAPSULE.CR PO SCH (11:05)
[2017-05-19] MEDS: FOLIC ACID 1 MG TABLET PO SCH (11:08)
[2017-05-19] MEDS: THIAMINE HCL 100 MG TABLET PO SCH (11:08)
[2017-05-19] MEDS: GUAIFENESIN 600 MG TABLET.SA PO SCH ×2 (11:09→21:36)
[2017-05-19] MEDS ORDERED: LORAZEPAM INJ 2 MG/1 ML VIAL IV ONE (11:16)
[2017-05-19] MEDS: NYSTATIN CREAM 15 GM TP SCH ×2 (11:16→18:14)
--- NOTE | 2017-05-19 12:33 | PROGRESS NOTE E ---
Progress Note NAME: VIVEK MAGUIRE : 1945 AGE: 71Y DATE: 05/19/2017 ROOM: 327 SUBJECTIVE: The patient is lying in bed. The patient will awaken, but appears to be confused, which is her baseline during this hospital stay. Patient has had no reported episodes of vomiting nor diarrhea. The patient has been afebrile. Her blood pressures have been in a decent range and the patient does not voice any other concerns at this time. REVIEW OF SYSTEMS: Full review of systems cannot be appreciated, given the patient's mentation. MEDICATION: Medication has been reviewed. OBJECTIVE: GENERAL: The patient is a 71-year-old female, who is awake, alert, but not fully oriented. She does not appear to be in distress. VITAL SIGNS: Temperature is 97.8, pulse 63, respirations 18, blood pressure 150/73. Oxygen saturation 98% on 3 liters nasal cannula. SKIN: Warm and dry. No rashes. She is not diaphoretic. She is jaundiced. HEENT: Pupils are reactive. Conjunctivae pale. There is no evidence of JVP. CARDIOVASCULAR: Heart is regular, no rub. CHEST: Symmetrical, diminished, unlabored. ABDOMEN: Firm. No area of focal tenderness. Possible ascites. EXTREMITIES: No clubbing or cyanosis. Bilateral upper extremities do have pitting edema. DIAGNOSTICS: Lab values are as follows: Hematology obtained on 05/18/2017: WBCs are 9.8, hemoglobin is 11.6, hematocrit is 37.4, platelet count is 357,000. Chemistry obtained on 05/18/2017: Sodium is 145, potassium 4.1, chloride is 110, carbon dioxide 30, BUN 33, creatinine 1.03, glucose 293, calcium is 8.2. IMPRESSION AND PLAN: 1. CHRONIC OBSTRUCTIVE PULMONARY DISEASE EXACERBATION. The patient is still requiring supplemental O2, but is being titrated. Will continue to taper her steroids and continue nebulizer. 2. ACUTE ON CHRONIC HYPOXEMIC RESPIRATORY FAILURE. Overall appears to be improving. 3. CELLULITIS OF LEFT LOWER EXTREMITY. Appears to be resolved. 4. ALCOHOL DEPENDENCY. Continuous. This has been going on for days. I do feel the patient is out of her withdrawal window. Will continue Ativan and vitamin B supplementation and follow. 5. ACUTE METABOLIC ENCEPHALOPATHY, POSSIBLY TOXIC ENCEPHALOPATHY DUE TO ALCOHOL OR WERNICKE PROCESS. Will repeat her ammonia level today and follow. Given that the patient is on day 9 of her hospital stay, will image her brain to ensure no other acute process. 6. DIABETES MELLITUS TYPE 2. Have increased basal dose of Lantus. 7. HYPERTENSION. Will maximize Nadolol and continue p.r.n. coverage. 8. PERIPHERAL VASCULAR DISEASE. Will continue aspirin. 9. HEPATIC CIRRHOSIS. I did discuss this with the patient's friend, who states the patient has had a long history of alcoholism and believes the patient has been diagnosed with cirrhosis in the past. 10. ABNORMAL GALLBLADDER ON ULTRASOUND. I have discussed the case with surgery. DISPOSITION: The patient is DO NOT RESUSCITATE/DO NOT INTUBATE. Pending patient's symptomatology and diagnostic findings, will reevaluate as needed. Time spent on this followup, including assessment, plan, physical examination, patient education, review of records and specialty collaboration is 35 minutes. DICTATING PHYSICIAN: MARIO FERNANDEZ NP [id number] [id number] PHY#: [id number] ID: [id number] JOB#: [id number] ACCT: [id number] cc: >
[2017-05-19 13:17] LABS: ALANINE AMINOTRANSFERASE 54 U/L (9-52); ALBUMIN 2.7 g/dL (3.5-5.0); ALKALINE PHOSPHATASE 108 U/L (38-126); ANION GAP 5 (5-19); ASPARTATE AMINO TRANSFERASE 49 U/L (14-36); BILIRUBIN,DIRECT 0.4 mg/dL (0.0-0.4); BILIRUBIN,TOTAL 0.7 mg/dL (0.2-1.3); BLOOD UREA NITROGEN 39 mg/dL (7-20); CALCIUM 8.3 mg/dL (8.4-10.2); CARBON DIOXIDE 27 mmol/L (22-30); CHLORIDE 110 mmol/L (98-107); GLUCOSE 291 mg/dL (75-110); LIPASE 112.9 U/L (23-300); POTASSIUM 4.5 mmol/L (3.6-5.0); SODIUM 142.2 mmol/L (137-145); TOTAL PROTEIN 5.1 g/dL (6.3-8.2)
[2017-05-19] MEDS: INSULIN LISPRO 100 UNIT/ML 3 ML VIAL SUBCUT PRN ×3 (14:13→21:50)
[2017-05-19] MEDS ORDERED: LORAZEPAM INJ 2 MG/1 ML VIAL IV PRN (14:42)
--- NOTE | 2017-05-19 18:40 | RADIOLOGY REPORT (SQ) ---
EXAM DESCRIPTION: MRI HEAD WITHOUT COMPLETED DATE/TIME: 05/19/2017 5:42 pm REASON FOR STUDY: Encephalopathy COMPARISON: None. TECHNIQUE: Multiplanar imaging includes non-contrasted T1, T2, FLAIR, and diffusion with ADC map seq uences. Images stored on PACS. LIMITATIONS: Motion artifact. FINDINGS: ANATOMY: No anomalies. Normal vascular flow voids. Pituitary fossa normal. CSF SPACES: Severe atrophy. CEREBRUM: Sulci and gyri normal in size and contour. Mild chronic small vessel ischemic disease. No evidence of hemorrhage, mass, or extraaxial fluid collection. POSTERIOR FOSSA: No signal alteration. No hemorrhage. No edema, masses or mass effect. Internal stacie tory canals, cerebello-pontine angles, mastoids normal. DIFFUSION IMAGING: Negative for acute or sub-acute infarction. ORBITS: No masses. Globes normal. PARANASAL SINUSES: No fluid levels. Mucosa normal. OTHER: Bilateral mastoiditis. IMPRESSION: 1. Limited evaluation due to patient motion. 2. No evidence of acute event involving the brain. 3. Atrophy and mild chronic small vessel ischemic disease. 4. Bilateral mastoiditis. EVIDENCE OF ACUTE STROKE: NO. TECHNICAL DOCUMENTATION: JOB ID: [id number] [employer]- All Rights Reserved
--- NOTE | 2017-05-19 20:59 | PDOC CONSULTATION ---
Consultation Consult Date: 05/19/17 Attending physician:: KRISSY CARRINGTON Consult reason:: Newly discovered gallstone in the face of ascites and cirrhosis. History of Present Illness Admission Date/PCP: 05/10/17 04:19 History of Present Illness: VIVEK MAGUIRE is a 71 year old female with past medical history of insulin-dependent diabetes mellitus, COPD, alcoholism, tobacco abuse, who presented to the emergency department on 05/10/2017 after falling out of her bed. Patient was found by the EMS service to be hypoxic to the 60s. She was given several DuoNeb treatments and placed on BiPAP. Patient was initially confused, but improved while on BiPAP. Today when I stopped and this year she was somnolent and not responding to the nurses. I was consulted by nurse practitioner Scott Pierce after an ultrasound of the abdomen was done in order to check on her liver in view of her known/suspected cirrhosis. The patient is unable really to give me much history. Patient's previous hospital notes, labs, and radiology reports are reviewed. Current medication list was reviewed. Patient was examined in the room with her nurse. With compression in the right upper quadrant she did not complain of any pain or indicate pain in any manner as she was moved to a cart to go to MRI today. Past Medical History Cardiac Medical History: Reports: Hyperlipidema, Hypertension, Peripheral Vascular Disease Denies: Atrial Fibrillation, Congestive Heart Failure, Pulmonary Embolism Pulmonary Medical History: Reports: Asthma, Bronchitis, Chronic Obstructive Pulmonary Disease (COPD) Endocrine Medical History: Reports: Diabetes Mellitus Type 1, Diabetes Mellitus Type 2 Psychiatric Medical History: Reports: Alcohol Dependency, Depression, Tobacco Dependency Hematology: Denies: Bleeding Tendencies Past Surgical History Past Surgical History: Reports: Adenoidectomy, Orthopedic Surgery - Patient has had both left and right hip fracture repairs secondary to falls, Tonsillectomy, Other - Cataract, left great toe amputation Social History Lives with: Alone Smoking Status: Current Every Day Smoker Cigarettes Packs Per Day: 1 Frequency of Alcohol Use: Heavy Hx Recreational Drug Use: No Drugs: None Hx Prescription Drug Abuse: No - Advance Directive Resuscitation Status: Do Not Resuscitate Family History Family History: CAD, Malignancy - Throat cancer, Other - Alzheimer's Parental Family History Reviewed: No - Patient unable to answer, see chart from admission H&P Children Family History Reviewed: Unknown Sibling(s) Family History Reviewed.: Unknown - See admission H&P. Medication/Allergy Home Medications: Amitriptyline HCl [Elavil 25 mg Tablet] 25 mg PO Q8HP PRN 05/10/17 Atorvastatin Calcium [Lipitor 10 mg Tablet] 10 mg PO QHS 05/10/17 Folic Acid [Folvite 1 mg Tablet] 1 mg PO DAILY 05/10/17 Insulin Glargine,Hum.rec.anlog [Lantus Solostar] 40 units SQ BID 05/10/17 Ipratropium/Albuterol Sulfate [Iprat-Albut 0.5-3(2.5) mg/3 ml] 3 ml NEB Q6 05/10 Prednisone [Deltasone 20 mg Tablet] 20 mg PO DAILY 05/10/17 Rivaroxaban [Xarelto] 10 mg PO QHS 05/10/17 Allergies/Adverse Reactions: valsartan [From Dwaynevan] Allergy (Unknown, Verified 05/10/17 02:53) Penicillins Allergy (Verified 05/10/17 02:53) exenatide [From Shweta] Adverse Reaction (Severe, Verified 05/10/17 02:53) Migraine Review of Systems All systems: reviewed and no additional remarkable complaints except as stated - Review of systems on H&P reviewed. Of special note for this note patient has known history of long-term alcohol abuse and suspected cirrhosis. She also is a cigarette smoker for many years. Physical Exam Vital Signs: Temp Pulse Resp BP Pulse Ox 97.5 F 55 L 19 175/80 H 95 05/19/17 19:58 05/19/17 19:58 05/19/17 19:58 05/19/17 19:58 05/19/17 19:58 Intake & Output 05/18/17 05/19/17 05/20/17 06:59 06:59 06:59 Intake Total 1346 205 230 Output Total 1999 1900 600 Balance -186 -7323 -945 Weight 82.4 kg 81.1 kg General appearance: PRESENT: no acute distress, disheveled, thin Head exam: PRESENT: atraumatic, normocephalic Eye exam: PRESENT: PERRLA, other - No scleral icterus Respiratory exam: PRESENT: unlabored Cardiovascular exam: PRESENT: RRR. ABSENT: diastolic murmur, rubs, systolic murmur GI/Abdominal exam: PRESENT: normal bowel sounds, other - Examination of the patient's abdomen reveal no obvious scars from previous surgery. There is no tenderness in the right upper quadrant. No Monge sign, and no palpable mass.. ABSENT: guarding, hernia Rectal exam: PRESENT: deferred Neurological exam: PRESENT: altered, other - Patient is encephalopathic suspected to be related to her cirrhosis and ascites. Psychiatric exam: PRESENT: other - See progress notes on hospitalist note. Skin exam: PRESENT: dry. ABSENT: rash Results Laboratory Results: 05/18/17 05:30 05/19/17 12:40 05/19/17 05/19/17 12:40 12:40 Sodium 142.2 Potassium 4.5 Chloride 110 H Carbon Dioxide 27 Anion Gap 5 BUN 39 H Creatinine 0.87 Est GFR ( Amer) > 60 Est GFR (Non-Af Amer) > 60 Glucose 291 H Calcium 8.3 L Total Bilirubin 0.7 AST 49 H ALT 54 H Alkaline Phosphatase 108 Ammonia < 8.7 L Total Protein 5.1 L Albumin 2.7 L Lipase 112.9 Vitamin B12 > 1000.0 H 05/10/17 05:15 Creatine Kinase 23 L Impressions: Cervical Spine CT 05/10/17 02:40 IMPRESSION: 1. No acute fracture or subluxation of the cervical spine. This exam was performed according to our departmental dose-optimization program, which includes automated exposure control, adjustment of the mA and/or kV according to patient size and/or use of iterative reconstruction technique. Chest X-Ray 05/10/17 02:40 IMPRESSION: 1. Interval increase in bilateral interstitial opacities which may be related to pulmonary edema. Head CT 05/10/17 02:40 IMPRESSION: 1. No acute intracranial abnormality by CT criteria. This exam was performed according to our departmental dose-optimization program, which includes automated exposure control, adjustment of the mA and/or kV according to patient size and/or use of iterative reconstruction technique. Hip/Pelvis X-Ray 05/10/17 02:42 IMPRESSION: 1. No acute fracture identified. Abdomen Ultrasound 05/18/17 00:00 IMPRESSION: 1. Cholelithiasis with gallbladder wall thickening and possible pericholecystic fluid. This could be seen with acute cholecystitis. 2. In the interpolar right kidney there is a 1.5 cm hypoechoic structure with peripheral echogenic foci of indeterminate etiology. Correlation with contrast-enhanced CT or MRI recommended for definitive characterization. 3. Small amount of perinephric fluid. 4. Small amount of perihepatic ascites. 5. Coarse echogenicity of the liver. This could be seen with cirrhosis. Head MRI 05/19/17 00:00 IMPRESSION: 1. Limited evaluation due to patient motion. 2. No evidence of acute event involving the brain. 3. Atrophy and mild chronic small vessel ischemic disease. 4. Bilateral mastoiditis. EVIDENCE OF ACUTE STROKE: NO. Assessment & Plan - Diagnosis (1) Cholelithiasis Qualifiers: Cholelithiasis location: gallbladder Cholecystitis presence: without cholecystitis Biliary obstruction: without biliary obstruction Qualified Code(s): K80.20 - Calculus of gallbladder without cholecystitis without obstruction Is this a current diagnosis for this admission?: Yes Plan: It appears that the cholelithiasis seen on ultrasound today is a incidental finding. Since the stone is large the patient most likely has had it for some time. Her white blood cell count is normal she has no tenderness on abdominal examination. It is difficult to tell on ultrasound when the patient has ascites whether or not pericholecystic fluid has any meaning as far as inflammation. She is not a good candidate for elective cholecystectomy so at this time would simply note that this is present and consider operative intervention only if it appeared that this was causing significant sepsis or other problems as patients with cirrhosis are notoriously difficult to get through an operation for cholecystitis.
[2017-05-19] MEDS: ATORVASTATIN CALCIUM 10 MG TABLET PO SCH (21:35)
[2017-05-19] MEDS: NADOLOL 40 MG TABLET PO SCH (21:35)
[2017-05-19] MEDS: RIVAROXABAN 10 MG TABLET PO SCH (21:36)
[2017-05-19] MEDS: INSULIN GLARGINE,HUM.REC.ANLOG 300 UNIT/3 ML INSULN.PEN SUBCUT SCH (21:51)
[2017-05-20] MEDS: LORAZEPAM INJ 2 MG/1 ML VIAL IV PRN (01:33)
[2017-05-20] MEDS: LANSOPRAZOLE 15 MG TAB.RAP.DR PO SCH ×2 (06:41→17:16)
[2017-05-20] MEDS ORDERED: PREDNISONE 20 MG TABLET PO SCH (10:00)
--- NOTE | 2017-05-20 10:35 | PDOC PROGRESS REPORT ---
Subjective Progress Note for:: 05/20/17 Subjective:: Lethargic, spontaneously opens eyes but does not respond to commands Reason For Visit: COPD EXACERBATION, HYPERGLYCEMIA, LEFT LOWER Physical Exam Vital Signs: Temp Pulse Resp BP Pulse Ox 98.3 F 55 L 12 152/85 H 100 05/20/17 07:53 05/20/17 07:53 05/20/17 07:53 05/20/17 07:53 05/20/17 07:53 Intake & Output 05/19/17 05/20/17 05/21/17 06:59 06:59 06:59 Intake Total 205 960 Output Total 1900 1100 Balance -1695 -140 Weight 81.1 kg 79 kg General appearance: PRESENT: no acute distress Respiratory exam: PRESENT: clear to auscultation lauren Cardiovascular exam: PRESENT: RRR GI/Abdominal exam: PRESENT: other - Soft, no apparent tenderness to deep palpation. Results Laboratory Results: 05/18/17 05:30 05/19/17 12:40 05/19/17 05/19/17 12:40 12:40 Sodium 142.2 Potassium 4.5 Chloride 110 H Carbon Dioxide 27 Anion Gap 5 BUN 39 H Creatinine 0.87 Est GFR ( Amer) > 60 Est GFR (Non-Af Amer) > 60 Glucose 291 H Calcium 8.3 L Total Bilirubin 0.7 AST 49 H ALT 54 H Alkaline Phosphatase 108 Ammonia < 8.7 L Total Protein 5.1 L Albumin 2.7 L Lipase 112.9 Vitamin B12 > 1000.0 H 05/10/17 05:15 Creatine Kinase 23 L Impressions: Cervical Spine CT 05/10/17 02:40 IMPRESSION: 1. No acute fracture or subluxation of the cervical spine. This exam was performed according to our departmental dose-optimization program, which includes automated exposure control, adjustment of the mA and/or kV according to patient size and/or use of iterative reconstruction technique. Chest X-Ray 05/10/17 02:40 IMPRESSION: 1. Interval increase in bilateral interstitial opacities which may be related to pulmonary edema. Head CT 05/10/17 02:40 IMPRESSION: 1. No acute intracranial abnormality by CT criteria. This exam was performed according to our departmental dose-optimization program, which includes automated exposure control, adjustment of the mA and/or kV according to patient size and/or use of iterative reconstruction technique. Hip/Pelvis X-Ray 05/10/17 02:42 IMPRESSION: 1. No acute fracture identified. Abdomen Ultrasound 05/18/17 00:00 IMPRESSION: 1. Cholelithiasis with gallbladder wall thickening and possible pericholecystic fluid. This could be seen with acute cholecystitis. 2. In the interpolar right kidney there is a 1.5 cm hypoechoic structure with peripheral echogenic foci of indeterminate etiology. Correlation with contrast-enhanced CT or MRI recommended for definitive characterization. 3. Small amount of perinephric fluid. 4. Small amount of perihepatic ascites. 5. Coarse echogenicity of the liver. This could be seen with cirrhosis. Head MRI 05/19/17 00:00 IMPRESSION: 1. Limited evaluation due to patient motion. 2. No evidence of acute event involving the brain. 3. Atrophy and mild chronic small vessel ischemic disease. 4. Bilateral mastoiditis. EVIDENCE OF ACUTE STROKE: NO. Assessment & Plan - Diagnosis (1) Cholelithiasis Qualifiers: Cholelithiasis location: gallbladder Cholecystitis presence: without cholecystitis Biliary obstruction: without biliary obstruction Qualified Code(s): K80.20 - Calculus of gallbladder without cholecystitis without obstruction Is this a current diagnosis for this admission?: Yes Plan: Incidental cholelithiasis. Patient does have gallbladder wall thickening but I do not think she has acute cholecystitis and do not recommend any surgical intervention. Defer to hospitalist for her mental status changes. She demonstrates evidence of sepsis or abdominal pain please reconsult us. surgical list service signing off.
[2017-05-20] MEDS: LACTULOSE SYRUP 20 GM/30 ML UDCUP PO SCH ×3 (11:14→17:16)
[2017-05-20] MEDS: FOLIC ACID 1 MG TABLET PO SCH (11:15)
[2017-05-20] MEDS: THIAMINE HCL 100 MG TABLET PO SCH (11:15)
[2017-05-20] MEDS: DILTIAZEM HCL 180 MG CAPSULE.CR PO SCH (11:16)
[2017-05-20] MEDS: GUAIFENESIN 600 MG TABLET.SA PO SCH ×2 (11:16→22:26)
[2017-05-20] MEDS: NADOLOL 40 MG TABLET PO SCH (11:20)
[2017-05-20] MEDS: NYSTATIN CREAM 15 GM TP SCH ×2 (11:24→17:15)
[2017-05-20] MEDS: INSULIN LISPRO 100 UNIT/ML 3 ML VIAL SUBCUT PRN ×3 (11:40→22:26)
--- NOTE | 2017-05-20 14:38 | PROGRESS NOTE E ---
Progress Note NAME: VIVEK MAGUIRE : 1945 AGE: 71Y DATE: 05/20/2017 ROOM: 327 SUBJECTIVE: The patient is currently lying in bed. The patient will awaken, but is not very responsive. The patient will answer yes or no, but goes right back to sleep. The patient denies any pain at this time. There have been reported episodes of vomiting nor diarrhea. The patient has been afebrile. Her blood pressure has been in a good range, and the patient is unable to articulate any concerns at this time. The patient has been seen by surgery and feels that most likely the patient's gallbladder is not bearing within her clinical picture, and do agree with this. Patient has had no symptoms. REVIEW OF SYSTEMS: The rest of review of systems is unobtainable. MEDICATIONS: Medications have been reviewed. OBJECTIVE: GENERAL: The patient is a 71-year-old female, who is awake, alert. She is not fully oriented. She does not appear to be distressed. VITAL SIGNS: Temperature is 98.3, pulse 57, respirations 13, blood pressure is 158/95, oxygen saturation is 98% on 2 liters nasal cannula. SKIN: Dry. No rash. Is not diaphoretic. Quite pale. HEENT: Pupils are reactive. Conjunctivae are pale. There is no evidence of JVP. CVS: Heart is regular. No murmurs or rubs. CHEST: Clear, symmetrical, unlabored. ABDOMEN: Mildly distended. Bowel sounds are present. EXTREMITIES: No clubbing or cyanosis. The patient's lower extremities: The patient has had a left great toe amputation. No evidence of cellulitis. The patient's bilateral upper extremities do have weeping dependent third-spacing edema. DIAGNOSTICS: Lab values are as follows: Hematology obtained on 05/18/2017: WBCs are 9.8, hemoglobin is 11.6, hematocrit is 37.4, platelet count is 157,000. Chemistry obtained on 05/19/2017: Sodium is 142, potassium 4.5, chloride is 101, carbon dioxide is 27, BUN 39, creatinine 27, glucose 291. Calcium is 8.3, bilirubin is 0.7, AST 14, ALT is 49, alk phos 108. B12 is greater than 1000. IMPRESSION AND PLAN: 1. CHRONIC OBSTRUCTIVE PULMONARY DISEASE EXACERBATION. Overall, the patient is much improved. O2 has been titrated. 2. ACUTE ON CHRONIC HYPOXEMIC RESPIRATORY FAILURE. Overall, much improved. I have titrated the steroids down. 3. CELLULITIS OF LEFT LOWER EXTREMITY. Appears resolved. 4. ALCOHOL DEPENDENCY, CONTINUOUS. The patient is now 10 days out. There should no longer be a clinical picture of DTs. Concern for some possible alcohol-induced dementia or Wernicke process. Will continue to supplement B vitamins. 5. DIABETES MELLITUS TYPE 2. Have increased basal dose of insulin. Will follow. 6. HYPERTENSION. Have maximized Nadolol. 7. PERIPHERAL VASCULAR DISEASE. Continue aspirin. 8. HEPATITIC CIRRHOSIS. The patient has had a long history of alcoholism. Will add Xifaxan and follow. 9. ASYMPTOMATIC CHOLELITHIASIS. If the patient's clinical picture should change, can call Surgery back. DISPOSITION: The patient is a DNR/DNI. Pending patient's symptomatology and diagnostic findings, will reevaluate as needed. The patient can be downgraded to a medical bed. Time spent on this followup, including assessment and plan, physical examination, patient education, review of records and specialty collaboration is 35 minutes. DICTATING PHYSICIAN: MARIO FERNANDEZ NP [id number] PHY#: [id number] ID: [id number] JOB#: [id number] ACCT: [id number] cc: > BRANDOND
[2017-05-20 14:53] LABS: VENOUS BLOOD BASE EXCESS 4.5 mmol/L; VENOUS BLOOD HCO3 31.8 mmol/L (20-32); VENOUS BLOOD PCO2 59.2 mmHg (35-63); VENOUS BLOOD PH 7.35 (7.30-7.42)
[2017-05-20] MEDS: DOXYCYCLINE HYCLATE 100 MG TABLET PO SCH (17:15)
[2017-05-20] MEDS: ATORVASTATIN CALCIUM 10 MG TABLET PO SCH (22:26)
[2017-05-20] MEDS: INSULIN GLARGINE,HUM.REC.ANLOG 300 UNIT/3 ML INSULN.PEN SUBCUT SCH (22:27)
[2017-05-21] MEDS: LANSOPRAZOLE 15 MG TAB.RAP.DR PO SCH ×2 (05:31→16:10)
[2017-05-21 06:38] LABS: HEMATOCRIT 38.9 % (36.0-47.0); HEMOGLOBIN 11.9 g/dL (12.0-15.5); MEAN CORPUSCULAR HGB CONC 30.6 g/dL (32.0-36.0); MEAN CORPUSCULAR VOLUME 85 fl (80-97); PLATELET COUNT 192 10^3/uL (150-450); RED BLOOD COUNT 4.57 10^6/uL (3.72-5.28); RED CELL DISTRIBUTION WIDTH 18.3 % (11.5-14.0); WHITE BLOOD COUNT 12.2 10^3/uL (4.0-10.5)
[2017-05-21 06:45] LABS: ANION GAP 5 (5-19); BLOOD UREA NITROGEN 43 mg/dL (7-20); CALCIUM 8.4 mg/dL (8.4-10.2); CARBON DIOXIDE 33 mmol/L (22-30); CHLORIDE 109 mmol/L (98-107); GLUCOSE 189 mg/dL (75-110); LIPASE 128.9 U/L (23-300); MAGNESIUM 2.1 mg/dL (1.6-2.3); POTASSIUM 3.8 mmol/L (3.6-5.0); SODIUM 147.2 mmol/L (137-145)
[2017-05-21] MEDS: INSULIN LISPRO 100 UNIT/ML 3 ML VIAL SUBCUT PRN ×4 (08:23→21:37)
[2017-05-21] MEDS: DOXYCYCLINE HYCLATE 100 MG TABLET PO SCH ×2 (08:24→16:10)
[2017-05-21] MEDS: DILTIAZEM HCL 180 MG CAPSULE.CR PO SCH (09:24)
[2017-05-21] MEDS: GUAIFENESIN 600 MG TABLET.SA PO SCH ×2 (09:24→21:36)
[2017-05-21] MEDS: LACTULOSE SYRUP 20 GM/30 ML UDCUP PO SCH ×3 (09:24→17:10)
[2017-05-21] MEDS: THIAMINE HCL 100 MG TABLET PO SCH (09:25)
[2017-05-21] MEDS: NADOLOL 40 MG TABLET PO SCH (09:25)
[2017-05-21] MEDS: FOLIC ACID 1 MG TABLET PO SCH (09:25)
[2017-05-21] MEDS ORDERED: PREDNISONE 20 MG TABLET PO SCH (10:00)
[2017-05-21] MEDS: RIFAXIMIN 550 MG TABLET PO SCH ×2 (11:43→17:10)
[2017-05-21] MEDS: NYSTATIN CREAM 15 GM TP SCH ×2 (11:44→16:11)
--- NOTE | 2017-05-21 13:07 | PDOC PROGRESS REPORT ---
Subjective Progress Note for:: 05/21/17 Subjective:: The patient is seen on morning rounds lying in bed comfortably. She does have a sitter present and consents to speaking with her while the sitter remains in the room. She states that she is "enjoying the company." She states that she is feeling well today and has no complaints. She denies fever, chills, headache , chest pain, dyspnea, cough, abdominal pain, nausea vomiting and diarrhea. No questions or concerns at this time. Reason For Visit: COPD EXACERBATION, HYPERGLYCEMIA, LEFT LOWER Physical Exam Vital Signs: Temp Pulse Resp BP Pulse Ox 98.2 F 63 14 177/62 H 95 05/21/17 07:40 05/21/17 09:40 05/21/17 07:40 05/21/17 07:40 05/21/17 09:40 Intake & Output 05/20/17 05/21/17 05/22/17 06:59 06:59 06:59 Intake Total 960 955 Output Total 1100 300 Balance -140 655 Weight 79 kg 81 kg General appearance: PRESENT: no acute distress, disheveled, well-developed, well -nourished, other - Overweight Head exam: PRESENT: atraumatic, normocephalic Eye exam: PRESENT: conjunctiva pink, EOMI, PERRLA. ABSENT: scleral icterus Ear exam: PRESENT: normal external ear exam Mouth exam: PRESENT: moist, tongue midline Neck exam: ABSENT: carotid bruit, JVD, lymphadenopathy, thyromegaly Respiratory exam: PRESENT: decreased breath sounds - Throughout, rhonchi - Occasional, symmetrical, unlabored. ABSENT: rales, tachypnea, wheezes Cardiovascular exam: PRESENT: RRR, +S1, +S2. ABSENT: diastolic murmur, rubs, systolic murmur Pulses: PRESENT: normal dorsalis pedis pul Vascular exam: PRESENT: normal capillary refill GI/Abdominal exam: PRESENT: distended, normal bowel sounds, soft. ABSENT: guarding, mass, organolmegaly, rebound, tenderness Rectal exam: PRESENT: deferred Extremities exam: PRESENT: full ROM. ABSENT: calf tenderness, clubbing, pedal edema Neurological exam: PRESENT: alert, awake, oriented to person, oriented to place , CN II-XII grossly intact, other - Recently confused. ABSENT: oriented to time , oriented to situation, motor sensory deficit Psychiatric exam: PRESENT: appropriate affect, normal mood. ABSENT: homicidal ideation, suicidal ideation Skin exam: PRESENT: dry, erythema - Slight erythema noted to the posterior aspect of the patient's right hand, warm, other. ABSENT: cyanosis, intact - Serious weeping related to third spacing noted to bilateral upper extremities, rash Results Laboratory Results: 05/21/17 05:50 05/21/17 05:50 05/20/17 05/21/17 05/21/17 14:44 05:50 05:50 WBC 12.2 H RBC 4.57 Hgb 11.9 L Hct 38.9 MCV 85 MCH 26.0 L MCHC 30.6 L RDW 18.3 H Plt Count 192 VBG pH 7.35 VBG pCO2 59.2 VBG HCO3 31.8 VBG Base Excess 4.5 Sodium 147.2 H Potassium 3.8 Chloride 109 H Carbon Dioxide 33 H Anion Gap 5 BUN 43 H Creatinine 0.96 Est GFR ( Amer) > 60 Est GFR (Non-Af Amer) 57 L Glucose 189 H Calcium 8.4 Magnesium 2.1 Lipase 128.9 05/10/17 05:15 Creatine Kinase 23 L Impressions: Cervical Spine CT 05/10/17 02:40 IMPRESSION: 1. No acute fracture or subluxation of the cervical spine. This exam was performed according to our departmental dose-optimization program, which includes automated exposure control, adjustment of the mA and/or kV according to patient size and/or use of iterative reconstruction technique. Chest X-Ray 05/10/17 02:40 IMPRESSION: 1. Interval increase in bilateral interstitial opacities which may be related to pulmonary edema. Head CT 05/10/17 02:40 IMPRESSION: 1. No acute intracranial abnormality by CT criteria. This exam was performed according to our departmental dose-optimization program, which includes automated exposure control, adjustment of the mA and/or kV according to patient size and/or use of iterative reconstruction technique. Hip/Pelvis X-Ray 05/10/17 02:42 IMPRESSION: 1. No acute fracture identified. Abdomen Ultrasound 05/18/17 00:00 IMPRESSION: 1. Cholelithiasis with gallbladder wall thickening and possible pericholecystic fluid. This could be seen with acute cholecystitis. 2. In the interpolar right kidney there is a 1.5 cm hypoechoic structure with peripheral echogenic foci of indeterminate etiology. Correlation with contrast-enhanced CT or MRI recommended for definitive characterization. 3. Small amount of perinephric fluid. 4. Small amount of perihepatic ascites. 5. Coarse echogenicity of the liver. This could be seen with cirrhosis. Head MRI 05/19/17 00:00 IMPRESSION: 1. Limited evaluation due to patient motion. 2. No evidence of acute event involving the brain. 3. Atrophy and mild chronic small vessel ischemic disease. 4. Bilateral mastoiditis. EVIDENCE OF ACUTE STROKE: NO. Assessment & Plan - Diagnosis (1) COPD exacerbation Is this a current diagnosis for this admission?: Yes Plan: Overall, the patient is much improved. The oxygen has been titrated and she is currently maintaining oxygen saturations greater than 95% on 2 L via nasal cannula. I have asked nursing to continue weaning oxygen to keep sats greater than 88%. The patient is noted to have an elevated bicarb of 33 today as well as an elevated WBC (12.2). Sounds are diminished throughout with occasional rhonchi. I am concerned that she may be developing a worsening exacerbation or pneumonia. Continue supplemental oxygen as needed to keep sats greater than 88%. She continues on doxycycline twice daily. She is provided Xopenex every 6 hours as needed. She is on prednisone 10 mg daily and Mucinex twice daily. Will obtain a chest x-ray. Consider increasing nebulizer treatments and/or steroid therapy if she continues to worsen. (2) Acute on chronic respiratory failure with hypoxemia Is this a current diagnosis for this admission?: Yes Plan: Overall, much improved, however, I am concerned that she may have worsened slightly after reduction in steroids. Nursing expressed concerns regarding possible aspiration as she was noted to have difficulty with water this morning. Will obtain a chest x-ray to evaluate for pneumonia, pleural effusions (related to hepatic cirrhosis), evidence of aspiration. Plan as above. (3) Diabetes mellitus, type 2 Is this a current diagnosis for this admission?: Yes Plan: Patient is on Lantus with Humalog for sliding scale coverage. Her Lantus was increased yesterday and appears to have improved her glucose control. Will continue to monitor and make adjustments as necessary. (4) Hepatic cirrhosis Is this a current diagnosis for this admission?: Yes Plan: The patient has a long history of alcoholism. She is currently on Xifaxan and lactulose. (5) Cellulitis Qualifiers: Site of cellulitis: extremity Site of cellulitis of extremity: lower extremity Qualified Code(s): L03.116 - Cellulitis of left lower limb Is this a current diagnosis for this admission?: Yes Plan: Cellulitis of the left lower extremity has resolved. I am slightly concerned that she may be developing a cellulitis of the right hand as it appears to be edematous with erythema today. The patient is also noted to have an increased WBC count. She is nontender to that area. Antibiotics currently include doxycycline. We will continue to monitor her hand for worsening signs of infection. I have asked nursing to assist in keeping her arm elevated. (6) Cholelithiasis Qualifiers: Cholelithiasis location: gallbladder Cholecystitis presence: without cholecystitis Biliary obstruction: without biliary obstruction Qualified Code(s): K80.20 - Calculus of gallbladder without cholecystitis without obstruction Is this a current diagnosis for this admission?: Yes Plan: Asymptomatic cholelithiasis was noted incidentally on imaging. Surgery has evaluated the patient and determined that she does not require operative management at this time and have signed off. They are available for reconsult if needed. (7) Hypertension Qualifiers: Hypertension type: essential hypertension Qualified Code(s): I10 - Essential (primary) hypertension Is this a current diagnosis for this admission?: Yes Plan: The is on diltiazem and max dose of nadolol. Blood pressures are improved today following increase of nadolol dose. Consider RONI/ARB if further control as needed. (8) Peripheral vascular disease Is this a current diagnosis for this admission?: Yes Plan: Continue ASA. - Time Time Spent with patient: 25-34 minutes Medications reviewed and adjusted accordingly: Yes
--- NOTE | 2017-05-21 16:05 | RADIOLOGY REPORT (SQ) ---
EXAM DESCRIPTION: CHEST PA/LAT COMPLETED DATE/TIME: 05/21/2017 3:54 pm REASON FOR STUDY: dyspnea COMPARISON: 05/10/2017 and 04/27/2017 EXAM PARAMETERS: NUMBER OF VIEWS: two views TECHNIQUE: Digital Frontal and Lateral radiographic views of the chest acquired. RADIATION DOSE: NA LIMITATIONS: none FINDINGS: LUNGS AND PLEURA: Mild increased density in the lung bases suggesting pneumonia. Pulmonar y edema is felt be less likely. Small right pleural effusion. On the lateral view there appears to be loculated effusion posteriorly. Possibility of empyema cannot be excluded. Chest CT should be co nsidered. MEDIASTINUM AND HILAR STRUCTURES: No masses or contour abnormalities. HEART AND VASCULAR STRUCTURES: Mild cardiomegaly. BONES: No acute findings. HARDWARE: None in the chest. OTHER: No other significant finding. IMPRESSION: Increased density in the lung bases posteriorly with small right effusion. There is sug gestion of loculated effusion posteriorly on the lateral view and chest CT should be considered. TECHNICAL DOCUMENTATION: JOB ID: [id number] [employer]- All Rights Reserved
[2017-05-21] MEDS: LEVALBUTEROL HCL NEB 1.25 MG/3 ML AMPUL NEB PRN (17:24)
[2017-05-21] MEDS: LEVOFLOXACIN 750 MG/D5W RTU 750 MG/150 ML RTUPB IV SCH (20:55)
[2017-05-21] MEDS: NORMAL SALINE 1000 ML 1,000 ML IV PRN (20:55)
[2017-05-21] MEDS: ATORVASTATIN CALCIUM 10 MG TABLET PO SCH (21:37)
[2017-05-21] MEDS: INSULIN GLARGINE,HUM.REC.ANLOG 300 UNIT/3 ML INSULN.PEN SUBCUT SCH (21:38)
[2017-05-22] MEDS: LANSOPRAZOLE 15 MG TAB.RAP.DR PO SCH ×2 (05:25→17:46)
[2017-05-22 06:02] LABS: BLOOD UREA NITROGEN 39 mg/dL (7-20); CALCIUM 8.1 mg/dL (8.4-10.2); GLUCOSE 210 mg/dL (75-110); POTASSIUM 3.9 mmol/L (3.6-5.0)
[2017-05-22 06:17] LABS: CARBON DIOXIDE 34 mmol/L (22-30); CHLORIDE 112 mmol/L (98-107); SODIUM 146.9 mmol/L (137-145)
[2017-05-22 06:28] LABS: ANION GAP 1 (5-19)
[2017-05-22 07:29] LABS: HEMATOCRIT 34.7 % (36.0-47.0); HEMOGLOBIN 10.6 g/dL (12.0-15.5); MEAN CORPUSCULAR HEMOGLOBIN 26.2 pg (27.0-33.4); MEAN CORPUSCULAR HGB CONC 30.6 g/dL (32.0-36.0); MEAN CORPUSCULAR VOLUME 86 fl (80-97); PLATELET COUNT 158 10^3/uL (150-450); RED BLOOD COUNT 4.05 10^6/uL (3.72-5.28); RED CELL DISTRIBUTION WIDTH 18.4 % (11.5-14.0); WHITE BLOOD COUNT 11.4 10^3/uL (4.0-10.5)
[2017-05-22] MEDS ORDERED: PREDNISONE 20 MG TABLET PO SCH ×2 (10:00→18:38)
[2017-05-22] MEDS: DILTIAZEM HCL 180 MG CAPSULE.CR PO SCH (10:21)
[2017-05-22] MEDS: NADOLOL 40 MG TABLET PO SCH (10:22)
[2017-05-22] MEDS: LACTULOSE SYRUP 20 GM/30 ML UDCUP PO SCH ×3 (10:22→17:52)
[2017-05-22] MEDS: FOLIC ACID 1 MG TABLET PO SCH (10:23)
[2017-05-22] MEDS: THIAMINE HCL 100 MG TABLET PO SCH (10:23)
[2017-05-22] MEDS: RIFAXIMIN 550 MG TABLET PO SCH (10:25)
[2017-05-22] MEDS: GUAIFENESIN 600 MG TABLET.SA PO SCH ×2 (10:29→21:57)
[2017-05-22] MEDS: NYSTATIN CREAM 15 GM TP SCH ×2 (10:32→17:51)
[2017-05-22] MEDS: NORMAL SALINE 1000 ML 1,000 ML IV PRN (10:33)
[2017-05-22] MEDS: LEVALBUTEROL HCL NEB 1.25 MG/3 ML AMPUL NEB PRN (12:09)
--- NOTE | 2017-05-22 12:20 | PDOC PROGRESS REPORT ---
Subjective Progress Note for:: 05/22/17 Subjective:: Unable to obtain due to confusion Reason For Visit: COPD EXACERBATION, HYPERGLYCEMIA, LEFT LOWER Physical Exam Vital Signs: Temp Pulse Resp BP Pulse Ox 97.7 F 58 L 18 158/79 H 97 05/22/17 04:29 05/22/17 04:29 05/22/17 04:29 05/22/17 04:29 05/22/17 04:29 Intake & Output 05/21/17 05/22/17 05/23/17 06:59 06:59 06:59 Intake Total 955 2490 Output Total 300 1500 Balance 655 990 Weight 81 kg General appearance: PRESENT: no acute distress, cooperative, morbidly obese Head exam: PRESENT: atraumatic, normocephalic Eye exam: PRESENT: EOMI, PERRLA Ear exam: PRESENT: normal external ear exam Mouth exam: PRESENT: moist Neck exam: PRESENT: full ROM. ABSENT: JVD, tenderness Respiratory exam: PRESENT: decreased breath sounds, unlabored. ABSENT: crackles , rhonchi, wheezes Cardiovascular exam: PRESENT: RRR. ABSENT: diastolic murmur, systolic murmur Vascular exam: PRESENT: normal capillary refill GI/Abdominal exam: PRESENT: normal bowel sounds, soft. ABSENT: tenderness Extremities exam: PRESENT: full ROM. ABSENT: joint swelling, pedal edema Neurological exam: PRESENT: alert, awake, CN II-XII grossly intact Results Laboratory Results: 05/22/17 06:56 05/22/17 05:11 05/22/17 05/22/17 05/22/17 05:11 05:11 06:56 WBC Cancelled 11.4 H RBC Cancelled 4.05 Hgb Cancelled 10.6 L Hct Cancelled 34.7 L MCV Cancelled 86 MCH Cancelled 26.2 L MCHC Cancelled 30.6 L RDW Cancelled 18.4 H Plt Count Cancelled 158 Sodium 146.9 H Potassium 3.9 Chloride 112 H Carbon Dioxide 34 H Anion Gap 1 L BUN 39 H Creatinine 0.82 Est GFR ( Amer) > 60 Est GFR (Non-Af Amer) > 60 Glucose 210 H Calcium 8.1 L 05/10/17 05:15 Creatine Kinase 23 L Impressions: Cervical Spine CT 05/10/17 02:40 IMPRESSION: 1. No acute fracture or subluxation of the cervical spine. This exam was performed according to our departmental dose-optimization program, which includes automated exposure control, adjustment of the mA and/or kV according to patient size and/or use of iterative reconstruction technique. Head CT 05/10/17 02:40 IMPRESSION: 1. No acute intracranial abnormality by CT criteria. This exam was performed according to our departmental dose-optimization program, which includes automated exposure control, adjustment of the mA and/or kV according to patient size and/or use of iterative reconstruction technique. Hip/Pelvis X-Ray 05/10/17 02:42 IMPRESSION: 1. No acute fracture identified. Abdomen Ultrasound 05/18/17 00:00 IMPRESSION: 1. Cholelithiasis with gallbladder wall thickening and possible pericholecystic fluid. This could be seen with acute cholecystitis. 2. In the interpolar right kidney there is a 1.5 cm hypoechoic structure with peripheral echogenic foci of indeterminate etiology. Correlation with contrast-enhanced CT or MRI recommended for definitive characterization. 3. Small amount of perinephric fluid. 4. Small amount of perihepatic ascites. 5. Coarse echogenicity of the liver. This could be seen with cirrhosis. Head MRI 05/19/17 00:00 IMPRESSION: 1. Limited evaluation due to patient motion. 2. No evidence of acute event involving the brain. 3. Atrophy and mild chronic small vessel ischemic disease. 4. Bilateral mastoiditis. EVIDENCE OF ACUTE STROKE: NO. Chest X-Ray 05/21/17 00:00 IMPRESSION: Increased density in the lung bases posteriorly with small right effusion. There is suggestion of loculated effusion posteriorly on the lateral view and chest CT should be considered. Assessment & Plan - Diagnosis (1) Encephalopathy Is this a current diagnosis for this admission?: Yes Plan: Persisting. It may relate to infectious process since chest x-ray demonstrates possible empyema versus Wernicke encephalopathy. Previous ammonia level had been normal (2) Acute on chronic respiratory failure with hypoxemia Is this a current diagnosis for this admission?: Yes Plan: Improve and doing well on 2 L of oxygen by nasal cannula (3) COPD exacerbation Is this a current diagnosis for this admission?: Yes Plan: Resolved. Will add Advair and Spiriva. (4) Cellulitis Qualifiers: Site of cellulitis: extremity Site of cellulitis of extremity: lower extremity Qualified Code(s): L03.116 - Cellulitis of left lower limb Is this a current diagnosis for this admission?: Yes Plan: Resolved (5) Cholelithiasis Qualifiers: Cholelithiasis location: gallbladder Cholecystitis presence: without cholecystitis Biliary obstruction: without biliary obstruction Qualified Code(s): K80.20 - Calculus of gallbladder without cholecystitis without obstruction Is this a current diagnosis for this admission?: Yes Plan: Seen by surgical team and appears to be deemed to be incidental and not having or causing encephalopathy (6) Diabetes mellitus, type 2 Qualifiers: Diabetes mellitus complication status: with unspecified complications Is this a current diagnosis for this admission?: Yes Plan: Continue present management (7) Pneumonia Qualifiers: Pneumonia type: due to unspecified organism Laterality: unspecified laterality Lung location: unspecified part of lung Qualified Code(s): J18.9 - Pneumonia, unspecified organism Is this a current diagnosis for this admission?: Yes Plan: There is a small right-sided pleural effusion and possible empyema posteriorly. To request CT of the chest for confirmation. Continue Levaquin. Of note white blood cell count is mildly elevated however patient had been started on oral steroids. (8) Alcohol use disorder Is this a current diagnosis for this admission?: Yes Plan: No signs of withdrawal but encephalopathy may relate to alcohol abuse. (9) Anemia Qualifiers: Anemia type: unspecified type Qualified Code(s): D64.9 - Anemia, unspecified Is this a current diagnosis for this admission?: Yes Plan: Stable - Time Time Spent with patient: 15-24 minutes Anticipated discharge: SNF Within: within 72 hours - Inpatient Certification Based on my medical assessment, after consideration of the patient's comorbidities, presenting symptoms, or acuity I expect that the services needed warrant INPATIENT care.: Yes I certify that my determination is in accordance with my understanding of Medicare's requirements for reasonable and necessary INPATIENT services [42 CFR 412.3e].: Yes Medical Necessity: Need for IV Antibiotics, Other - Placement
--- NOTE | 2017-05-22 14:47 | RADIOLOGY REPORT (SQ) ---
EXAM DESCRIPTION: CT CHEST WITH COMPLETED DATE/TIME: 05/22/2017 1:24 pm REASON FOR STUDY: eval for empyema COMPARISON: 05/21/2017 CT 04/27/2016 TECHNIQUE: CT scan of the chest performed using helical scanning technique with dynamic intravenous contrast injection. Images reviewed with lung, soft tissue and bone windows. Reconstructed coronal and sagittal MPR images reviewed. All images stored on PACS. All CT scanners at this facility use dose modulation, iterative reconstruction, and/or weight based d osing when appropriate to reduce radiation dose to as low as reasonably achievable (ALARA). [facility]: Dose Right [facility]: CareDose [facility]: Dose Right [facility]: Teradose 4D [facility]: FindProz CONTRAST TYPE AND DOSE: contrast/concentration: Isovue 370.00 mg/ml; Total Contrast Delivered: 78.8 ml; Total Saline Delivered: 20.0 ml RENAL FUNCTION: GFR > 60. RADIATION DOSE: CT Rad equipment meets quality standard of care and radiation dose reduction techniq ues were employed. CTDIvol: 10.6 mGy. DLP: 396 mGy-cm. . LIMITATIONS: None. FINDINGS: LUNGS AND PLEURA: There are bilateral free-flowing dependent effusions left greater than r ight. Hounsfield units level below 10. Compressive atelectasis of the lungs. No walled off empyema . HILAR AND MEDIASTINAL STRUCTURES: No identified masses or abnormal nodes. HEART AND VASCULAR STRUCTURES: No aneurysm or dissection. No central pulmonary emboli. No pericardi al effusion. HARDWARE: None in the chest. UPPER ABDOMEN: Mild ascites. THYROID AND OTHER SOFT TISSUES: No masses. No adenopathy. BONES: Interval mild compression fracture of T7. OTHER: No other significant finding. IMPRESSION: Bilateral free-flowing pleural effusions without walled off empyema. Minimal ascites. Interval since prior CT mild compression fracture of T7. TECHNICAL DOCUMENTATION: JOB ID: [id number] Quality ID # [id number]: Final reports with documentation of one or more dose reduction techniques (e.g., Au tomated exposure control, adjustment of the mA and/or kV according to patient size, use of iterative reconstruction technique) 2010 [facility]- All Rights Reserved
[2017-05-22] MEDS ORDERED: SPIRONOLACTONE 25 MG TABLET PO SCH (16:00)
[2017-05-22] MEDS: FUROSEMIDE INJ/PF 20 MG/2 ML SDV IV SCH (17:47)
[2017-05-22] MEDS ORDERED: PREDNISONE 10 MG TABLET PO ONE (18:45)
[2017-05-22] MEDS: LEVOFLOXACIN 750 MG/D5W RTU 750 MG/150 ML RTUPB IV SCH (20:08)
[2017-05-22] MEDS ORDERED: INSULIN REG, HUMAN 100 UNIT/ML 3 ML VIAL (PYX) IV ONE ×2 (21:37→23:50)
[2017-05-22] MEDS: FLUTICASONE/SALMETEROL DISKUS 250-50 MCG/DOSE IH SCH (21:57)
[2017-05-22] MEDS: ATORVASTATIN CALCIUM 10 MG TABLET PO SCH (21:57)
[2017-05-22] MEDS ORDERED: INSULIN GLARGINE,HUM.REC.ANLOG 300 UNIT/3 ML INSULN.PEN SUBCUT SCH ×2 (22:00)
[2017-05-23] MEDS: FUROSEMIDE INJ/PF 20 MG/2 ML SDV IV SCH ×3 (01:42→19:13)
[2017-05-23] MEDS: LANSOPRAZOLE 15 MG TAB.RAP.DR PO SCH ×2 (05:21→16:01)
[2017-05-23] MEDS ORDERED: INSULIN LISPRO 100 UNIT/ML 3 ML VIAL SUBCUT SCH (08:00)
[2017-05-23] MEDS ORDERED: PREDNISONE 10 MG TABLET PO SCH (10:00)
[2017-05-23] MEDS: GUAIFENESIN 600 MG TABLET.SA PO SCH ×2 (10:48→22:01)
[2017-05-23] MEDS: DILTIAZEM HCL 240 MG CAPSULE.CR PO SCH (10:48)
[2017-05-23] MEDS: THIAMINE HCL 100 MG TABLET PO SCH (10:48)
[2017-05-23] MEDS: LACTULOSE SYRUP 20 GM/30 ML UDCUP PO SCH (10:49)
[2017-05-23] MEDS: FOLIC ACID 1 MG TABLET PO SCH (10:49)
[2017-05-23] MEDS: NADOLOL 40 MG TABLET PO SCH (10:49)
[2017-05-23] MEDS: FLUTICASONE/SALMETEROL DISKUS 250-50 MCG/DOSE IH SCH ×2 (10:50→22:04)
[2017-05-23] MEDS: TIOTROPIUM BROMIDE DPI 5 CAP/KIT (18 MCG/CAP) IH SCH (10:50)
[2017-05-23] MEDS: NYSTATIN CREAM 15 GM TP SCH (10:51)
[2017-05-23] MEDS: INSULIN LISPRO 100 UNIT/ML 3 ML VIAL SUBCUT SCH ×2 (11:30→15:58)
[2017-05-23] MEDS: INSULIN LISPRO 100 UNIT/ML 3 ML VIAL SUBCUT PRN ×2 (11:34→22:01)
[2017-05-23] MEDS ORDERED: NADOLOL 40 MG TABLET PO SCH (12:00)
--- NOTE | 2017-05-23 13:18 | PDOC PROGRESS REPORT ---
Subjective Progress Note for:: 05/23/17 Subjective:: Patient is inquiring when she will be able to go back to [facility]. Interestingly she knows that she is to [facility]. No complaints voiced by her but her male friend who is at bedside states that she appears to be upset for no reason Reason For Visit: COPD EXACERBATION, HYPERGLYCEMIA, LEFT LOWER Physical Exam Vital Signs: Temp Pulse Resp BP Pulse Ox 98.1 F 53 L 18 170/74 H 100 05/23/17 05:26 05/23/17 05:26 05/23/17 05:26 05/23/17 05:26 05/23/17 05:26 Intake & Output 05/22/17 05/23/17 05/24/17 06:59 06:59 06:59 Intake Total 2790 3811 Output Total 1999 3150 Balance 790 661 Weight 84 kg 84 kg General appearance: PRESENT: no acute distress, cooperative, obese Head exam: PRESENT: atraumatic, normocephalic Eye exam: PRESENT: EOMI, PERRLA Ear exam: PRESENT: normal external ear exam Mouth exam: PRESENT: moist Neck exam: PRESENT: full ROM, tenderness. ABSENT: JVD Respiratory exam: PRESENT: clear to auscultation lauren Cardiovascular exam: PRESENT: RRR. ABSENT: diastolic murmur, systolic murmur Vascular exam: PRESENT: normal capillary refill GI/Abdominal exam: PRESENT: normal bowel sounds, soft. ABSENT: tenderness Extremities exam: PRESENT: full ROM, other - Bruises noted primarily in upper extremities. ABSENT: pedal edema Neurological exam: PRESENT: alert, awake, oriented to person, oriented to place Psychiatric exam: PRESENT: agitated Results Laboratory Results: 05/22/17 06:56 05/22/17 05:11 05/22/17 06:56 WBC 11.4 H RBC 4.05 Hgb 10.6 L Hct 34.7 L MCV 86 MCH 26.2 L MCHC 30.6 L RDW 18.4 H Plt Count 158 05/10/17 05:15 Creatine Kinase 23 L Impressions: Cervical Spine CT 05/10/17 02:40 IMPRESSION: 1. No acute fracture or subluxation of the cervical spine. This exam was performed according to our departmental dose-optimization program, which includes automated exposure control, adjustment of the mA and/or kV according to patient size and/or use of iterative reconstruction technique. Head CT 05/10/17 02:40 IMPRESSION: 1. No acute intracranial abnormality by CT criteria. This exam was performed according to our departmental dose-optimization program, which includes automated exposure control, adjustment of the mA and/or kV according to patient size and/or use of iterative reconstruction technique. Hip/Pelvis X-Ray 05/10/17 02:42 IMPRESSION: 1. No acute fracture identified. Abdomen Ultrasound 05/18/17 00:00 IMPRESSION: 1. Cholelithiasis with gallbladder wall thickening and possible pericholecystic fluid. This could be seen with acute cholecystitis. 2. In the interpolar right kidney there is a 1.5 cm hypoechoic structure with peripheral echogenic foci of indeterminate etiology. Correlation with contrast-enhanced CT or MRI recommended for definitive characterization. 3. Small amount of perinephric fluid. 4. Small amount of perihepatic ascites. 5. Coarse echogenicity of the liver. This could be seen with cirrhosis. Head MRI 05/19/17 00:00 IMPRESSION: 1. Limited evaluation due to patient motion. 2. No evidence of acute event involving the brain. 3. Atrophy and mild chronic small vessel ischemic disease. 4. Bilateral mastoiditis. EVIDENCE OF ACUTE STROKE: NO. Chest X-Ray 05/21/17 00:00 IMPRESSION: Increased density in the lung bases posteriorly with small right effusion. There is suggestion of loculated effusion posteriorly on the lateral view and chest CT should be considered. Chest CT 05/22/17 00:00 IMPRESSION: Bilateral free-flowing pleural effusions without walled off empyema. Minimal ascites. Interval since prior CT mild compression fracture of T7. Assessment & Plan - Diagnosis (1) Encephalopathy Is this a current diagnosis for this admission?: Yes Plan: Improving. Has been trying to control blood pressure and hyperglycemia as it may be some metabolic and perfusion issues. Current agitation still may relate to medication will discontinue Levaquin and follow up response (2) Acute on chronic respiratory failure with hypoxemia Is this a current diagnosis for this admission?: Yes Plan: Improve and doing well on 2 L of oxygen by nasal cannula (3) COPD exacerbation Is this a current diagnosis for this admission?: Yes Plan: Resolved. ContinueAdvair and Spiriva. Discontinue prednisone since mildly agitated (4) Cellulitis Qualifiers: Site of cellulitis: extremity Site of cellulitis of extremity: lower extremity Is this a current diagnosis for this admission?: Yes Plan: Resolved (5) Cholelithiasis Qualifiers: Cholelithiasis location: gallbladder Cholecystitis presence: without cholecystitis Biliary obstruction: without biliary obstruction Qualified Code(s): K80.20 - Calculus of gallbladder without cholecystitis without obstruction Is this a current diagnosis for this admission?: Yes Plan: Seen by surgical team and appears to be deemed to be incidental and not having or causing encephalopathy (6) Diabetes mellitus, type 2 Qualifiers: Diabetes mellitus complication status: with unspecified complications Is this a current diagnosis for this admission?: Yes Plan: To place patient back on Lantus 40 units subcu twice a day, increase pre-meals Humalog and continue sliding scale. Nurse made aware that part of agitation may relate to patient behaving like if having hypoglycemia in the setting of trying to control blood sugar (7) Pneumonia Qualifiers: Pneumonia type: due to unspecified organism Laterality: unspecified laterality Lung location: unspecified part of lung Qualified Code(s): J18.9 - Pneumonia, unspecified organism Is this a current diagnosis for this admission?: Yes Plan: Ruled out. Discontinue Levaquin in the event that may be contributing to agitation (8) Alcohol use disorder Is this a current diagnosis for this admission?: Yes Plan: No signs of withdrawal but ther is a possibility that encephalopathy may relate to chronic alcohol abuse. (9) Anemia Qualifiers: Anemia type: unspecified type Qualified Code(s): D64.9 - Anemia, unspecified Is this a current diagnosis for this admission?: Yes Plan: Stable (10) Pleural effusion Is this a current diagnosis for this admission?: Yes Plan: Patient had been started on Lasix IV and will follow up response by checking repeat chest x-ray - Time Time Spent with patient: 15-24 minutes Medications reviewed and adjusted accordingly: Yes Anticipated discharge: SNF Within: within 72 hours - Inpatient Certification Based on my medical assessment, after consideration of the patient's comorbidities, presenting symptoms, or acuity I expect that the services needed warrant INPATIENT care.: Yes I certify that my determination is in accordance with my understanding of Medicare's requirements for reasonable and necessary INPATIENT services [42 CFR 412.3e].: Yes Medical Necessity: Other - Intravenous Lasix
[2017-05-23] MEDS: HYDRALAZINE HCL 50 MG TABLET PO SCH ×2 (15:57→22:01)
[2017-05-23] MEDS: INSULIN GLARGINE,HUM.REC.ANLOG 300 UNIT/3 ML INSULN.PEN SUBCUT SCH (19:13)
[2017-05-23] MEDS: ATORVASTATIN CALCIUM 10 MG TABLET PO SCH (22:01)
[2017-05-24] MEDS ORDERED: LORAZEPAM INJ 2 MG/1 ML VIAL IV ONE (01:30)
[2017-05-24] MEDS: FUROSEMIDE INJ/PF 20 MG/2 ML SDV IV SCH ×3 (02:07→18:15)
[2017-05-24 05:13] LABS: ABSOLUTE EOSINOPHILS # (AUTO) 0.2 10^3/uL (0.0-0.6); ABSOLUTE LYMPHOCYTES (AUTO) 2.3 10^3/uL (0.5-4.7); ABSOLUTE MONOCYTES (AUTO) 0.8 10^3/uL (0.1-1.4); ABSOLUTE NEUT (AUTO) 8.5 10^3/uL (1.7-8.2); BASOPHILS % (AUTO) 0.2 % (0-2); EOSINOPHILS % (AUTO) 1.7 % (0-6); HEMATOCRIT 32.2 % (36.0-47.0); LYMPHOCYTES % (AUTO) 19.5 % (13-45); MEAN CORPUSCULAR HEMOGLOBIN 26.2 pg (27.0-33.4); MEAN CORPUSCULAR HGB CONC 31.1 g/dL (32.0-36.0); MEAN CORPUSCULAR VOLUME 84 fl (80-97); MONOCYTES % (AUTO) 6.7 % (3-13); PLATELET COUNT 104 10^3/uL (150-450); RED BLOOD COUNT 3.81 10^6/uL (3.72-5.28); RED CELL DISTRIBUTION WIDTH 18.3 % (11.5-14.0); SEGMENTED NEUTROPHILS % (AUTO) 71.9 % (42-78); TOTAL CELLS COUNTED % (AUTO) 100 %; WHITE BLOOD COUNT 11.8 10^3/uL (4.0-10.5)
[2017-05-24 05:43] LABS: BLOOD UREA NITROGEN 34 mg/dL (7-20); CALCIUM 7.9 mg/dL (8.4-10.2); GLUCOSE 187 mg/dL (75-110); MAGNESIUM 1.6 mg/dL (1.6-2.3)
[2017-05-24 06:11] LABS: ANION GAP 2 (5-19); CARBON DIOXIDE 37 mmol/L (22-30); CHLORIDE 99 mmol/L (98-107); POTASSIUM 3.5 mmol/L (3.6-5.0); SODIUM 137.8 mmol/L (137-145)
[2017-05-24] MEDS: LANSOPRAZOLE 15 MG TAB.RAP.DR PO SCH ×2 (06:13→18:15)
[2017-05-24] MEDS: INSULIN GLARGINE,HUM.REC.ANLOG 300 UNIT/3 ML INSULN.PEN SUBCUT SCH ×2 (06:13→18:15)
[2017-05-24] MEDS: HYDRALAZINE HCL 50 MG TABLET PO SCH ×3 (06:13→22:01)
[2017-05-24] MEDS ORDERED: POTASSIUM CHLORIDE 10 MEQ TABLET.SA PO ONE (07:13)
[2017-05-24] MEDS: INSULIN LISPRO 100 UNIT/ML 3 ML VIAL SUBCUT SCH ×3 (08:24→18:15)
[2017-05-24] MEDS: INSULIN LISPRO 100 UNIT/ML 3 ML VIAL SUBCUT PRN ×4 (08:25→22:27)
[2017-05-24] MEDS: FOLIC ACID 1 MG TABLET PO SCH (10:49)
[2017-05-24] MEDS: DILTIAZEM HCL 240 MG CAPSULE.CR PO SCH (10:49)
[2017-05-24] MEDS: GUAIFENESIN 600 MG TABLET.SA PO SCH ×2 (10:50→22:02)
[2017-05-24] MEDS: THIAMINE HCL 100 MG TABLET PO SCH (10:50)
[2017-05-24] MEDS: FLUTICASONE/SALMETEROL DISKUS 250-50 MCG/DOSE IH SCH ×2 (10:51→22:00)
[2017-05-24] MEDS: TIOTROPIUM BROMIDE DPI 5 CAP/KIT (18 MCG/CAP) IH SCH (10:52)
[2017-05-24] MEDS: ACETAMINOPHEN 325 MG TABLET PO PRN (13:38)
--- NOTE | 2017-05-24 14:50 | PDOC PROGRESS REPORT ---
Subjective Progress Note for:: 05/24/17 Subjective:: Patient again is inquiring when will she go to [place]. She states that yesterday she cried after realizing that her mother and her brother and she did not know about it. She feels that if she could go to [facility] she could work on rehab and possibly go to work. She would like to know an answer. She also states that she is no longer short of breath. Reason For Visit: COPD EXACERBATION, HYPERGLYCEMIA, LEFT LOWER Physical Exam Vital Signs: Temp Pulse Resp BP Pulse Ox 98.4 F 55 L 19 128/62 H 96 05/24/17 00:29 05/24/17 00:29 05/24/17 00:29 05/24/17 00:29 05/24/17 00:29 Intake & Output 05/23/17 05/24/17 05/25/17 06:59 06:59 06:59 Intake Total 4057 1774 Output Total 3150 2700 Balance 907 -926 Weight 84 kg 85.6 kg General appearance: PRESENT: no acute distress, cooperative, obese Head exam: PRESENT: atraumatic, normocephalic Eye exam: PRESENT: conjunctiva pink, EOMI, PERRLA Mouth exam: PRESENT: moist, neck supple Neck exam: PRESENT: full ROM, JVD. ABSENT: tenderness Respiratory exam: PRESENT: clear to auscultation lauren Cardiovascular exam: PRESENT: RRR. ABSENT: diastolic murmur, systolic murmur Vascular exam: PRESENT: normal capillary refill GI/Abdominal exam: PRESENT: normal bowel sounds, soft. ABSENT: tenderness Extremities exam: PRESENT: other - bruising in upper extremeties Neurological exam: PRESENT: alert, oriented to person, oriented to place, CN II- XII grossly intact Psychiatric exam: PRESENT: anxious Results Laboratory Results: 05/24/17 04:53 05/24/17 04:53 05/24/17 05/24/17 04:53 04:53 WBC 11.8 H RBC 3.81 Hgb 10.0 L Hct 32.2 L MCV 84 MCH 26.2 L MCHC 31.1 L RDW 18.3 H Plt Count 104 L Seg Neutrophils % 71.9 Lymphocytes % 19.5 Monocytes % 6.7 Eosinophils % 1.7 Basophils % 0.2 Absolute Neutrophils 8.5 H Absolute Lymphocytes 2.3 Absolute Monocytes 0.8 Absolute Eosinophils 0.2 Absolute Basophils 0.0 Sodium 137.8 Potassium 3.5 L Chloride 99 Carbon Dioxide 37 H Anion Gap 2 L BUN 34 H Creatinine 0.98 Est GFR ( Amer) > 60 Est GFR (Non-Af Amer) 56 L Glucose 187 H Calcium 7.9 L Magnesium 1.6 05/10/17 05:15 Creatine Kinase 23 L Impressions: Cervical Spine CT 05/10/17 02:40 IMPRESSION: 1. No acute fracture or subluxation of the cervical spine. This exam was performed according to our departmental dose-optimization program, which includes automated exposure control, adjustment of the mA and/or kV according to patient size and/or use of iterative reconstruction technique. Head CT 05/10/17 02:40 IMPRESSION: 1. No acute intracranial abnormality by CT criteria. This exam was performed according to our departmental dose-optimization program, which includes automated exposure control, adjustment of the mA and/or kV according to patient size and/or use of iterative reconstruction technique. Hip/Pelvis X-Ray 05/10/17 02:42 IMPRESSION: 1. No acute fracture identified. Abdomen Ultrasound 05/18/17 00:00 IMPRESSION: 1. Cholelithiasis with gallbladder wall thickening and possible pericholecystic fluid. This could be seen with acute cholecystitis. 2. In the interpolar right kidney there is a 1.5 cm hypoechoic structure with peripheral echogenic foci of indeterminate etiology. Correlation with contrast-enhanced CT or MRI recommended for definitive characterization. 3. Small amount of perinephric fluid. 4. Small amount of perihepatic ascites. 5. Coarse echogenicity of the liver. This could be seen with cirrhosis. Head MRI 05/19/17 00:00 IMPRESSION: 1. Limited evaluation due to patient motion. 2. No evidence of acute event involving the brain. 3. Atrophy and mild chronic small vessel ischemic disease. 4. Bilateral mastoiditis. EVIDENCE OF ACUTE STROKE: NO. Chest X-Ray 05/21/17 00:00 IMPRESSION: Increased density in the lung bases posteriorly with small right effusion. There is suggestion of loculated effusion posteriorly on the lateral view and chest CT should be considered. Chest CT 05/22/17 00:00 IMPRESSION: Bilateral free-flowing pleural effusions without walled off empyema. Minimal ascites. Interval since prior CT mild compression fracture of T7. Assessment & Plan - Diagnosis (1) Encephalopathy Is this a current diagnosis for this admission?: Yes Plan: Improved over the past 48 hours. My impression is that it has been mostly metabolic in nature including hypertensive, hyperglycemia, hypoxemia and hypercapnia (2) Acute on chronic respiratory failure with hypoxemia Is this a current diagnosis for this admission?: Yes Plan: Improve and doing well on 2 L of oxygen by nasal cannula (3) COPD exacerbation Is this a current diagnosis for this admission?: Yes Plan: Resolved. Continue Advair and Spiriva. (4) Cellulitis Qualifiers: Site of cellulitis: extremity Site of cellulitis of extremity: lower extremity Is this a current diagnosis for this admission?: Yes Plan: Resolved (5) Cholelithiasis Qualifiers: Cholelithiasis location: gallbladder Cholecystitis presence: without cholecystitis Biliary obstruction: without biliary obstruction Qualified Code(s): K80.20 - Calculus of gallbladder without cholecystitis without obstruction Is this a current diagnosis for this admission?: Yes Plan: Seen by surgical team and appears to be deemed to be incidental and not having or causing encephalopathy (6) Diabetes mellitus, type 2 Qualifiers: Diabetes mellitus complication status: with unspecified complications Is this a current diagnosis for this admission?: Yes Plan: Improved and to continue current regimen (7) Pneumonia Qualifiers: Pneumonia type: due to unspecified organism Laterality: unspecified laterality Lung location: unspecified part of lung Qualified Code(s): J18.9 - Pneumonia, unspecified organism Is this a current diagnosis for this admission?: Yes Plan: Ruled out. Also Levaquin since can cause agitation (8) Alcohol use disorder Is this a current diagnosis for this admission?: Yes Plan: No signs of withdrawal. There is a possibility of an element of dementia secondary to alcohol abuse (9) Anemia Qualifiers: Anemia type: unspecified type Qualified Code(s): D64.9 - Anemia, unspecified Is this a current diagnosis for this admission?: Yes Plan: Stable (10) Pleural effusion Is this a current diagnosis for this admission?: Yes Plan: Continue Lasix as to order chest x-ray to see if any improvement of pleural effusion. If not improving will consider thoracentesis. - Time Time Spent with patient: 15-24 minutes Medications reviewed and adjusted accordingly: Yes Anticipated discharge: SNF Within: within 48 hours - Inpatient Certification Based on my medical assessment, after consideration of the patient's comorbidities, presenting symptoms, or acuity I expect that the services needed warrant INPATIENT care.: Yes I certify that my determination is in accordance with my understanding of Medicare's requirements for reasonable and necessary INPATIENT services [42 CFR 412.3e].: Yes Medical Necessity: Need Close Monitoring Due to Risk of Patient Decompensation, Other - IV Lasix
[2017-05-24] MEDS: ATORVASTATIN CALCIUM 10 MG TABLET PO SCH (22:02)
[2017-05-25] MEDS: FUROSEMIDE INJ/PF 20 MG/2 ML SDV IV SCH ×3 (01:25→18:06)
[2017-05-25] MEDS: ACETAMINOPHEN 325 MG TABLET PO PRN ×3 (03:04→22:13)
[2017-05-25] MEDS: LANSOPRAZOLE 15 MG TAB.RAP.DR PO SCH ×2 (05:57→18:05)
[2017-05-25] MEDS: HYDRALAZINE HCL 50 MG TABLET PO SCH ×3 (05:57→22:13)
[2017-05-25] MEDS: INSULIN GLARGINE,HUM.REC.ANLOG 300 UNIT/3 ML INSULN.PEN SUBCUT SCH ×2 (05:58→18:05)
[2017-05-25 06:13] LABS: ABSOLUTE EOSINOPHILS # (AUTO) 0.5 10^3/uL (0.0-0.6); ABSOLUTE LYMPHOCYTES (AUTO) 1.9 10^3/uL (0.5-4.7); ABSOLUTE MONOCYTES (AUTO) 0.8 10^3/uL (0.1-1.4); ABSOLUTE NEUT (AUTO) 7.2 10^3/uL (1.7-8.2); BASOPHILS % (AUTO) 0.4 % (0-2); EOSINOPHILS % (AUTO) 4.6 % (0-6); HEMATOCRIT 33.5 % (36.0-47.0); HEMOGLOBIN 10.7 g/dL (12.0-15.5); LYMPHOCYTES % (AUTO) 18.6 % (13-45); MEAN CORPUSCULAR HEMOGLOBIN 26.9 pg (27.0-33.4); MEAN CORPUSCULAR VOLUME 84 fl (80-97); MONOCYTES % (AUTO) 7.2 % (3-13); RED BLOOD COUNT 3.99 10^6/uL (3.72-5.28); RED CELL DISTRIBUTION WIDTH 18.1 % (11.5-14.0); SEGMENTED NEUTROPHILS % (AUTO) 69.2 % (42-78); TOTAL CELLS COUNTED % (AUTO) 100 %; WHITE BLOOD COUNT 10.4 10^3/uL (4.0-10.5)
[2017-05-25 06:31] LABS: BLOOD UREA NITROGEN 29 mg/dL (7-20); CALCIUM 7.9 mg/dL (8.4-10.2); CHLORIDE 97 mmol/L (98-107); GLUCOSE 93 mg/dL (75-110); MAGNESIUM 1.5 mg/dL (1.6-2.3); POTASSIUM 3.4 mmol/L (3.6-5.0); SODIUM 138.2 mmol/L (137-145)
[2017-05-25 06:53] LABS: PLATELET COUNT 99 10^3/uL (150-450)
[2017-05-25 06:57] LABS: ANION GAP 2 (5-19); CARBON DIOXIDE 39 mmol/L (22-30)
[2017-05-25] MEDS: INSULIN LISPRO 100 UNIT/ML 3 ML VIAL SUBCUT SCH ×3 (08:18→18:06)
[2017-05-25] MEDS: GUAIFENESIN 600 MG TABLET.SA PO SCH ×2 (09:09→22:13)
[2017-05-25] MEDS: DILTIAZEM HCL 240 MG CAPSULE.CR PO SCH (09:09)
[2017-05-25] MEDS: FLUTICASONE/SALMETEROL DISKUS 250-50 MCG/DOSE IH SCH ×2 (09:09→22:14)
[2017-05-25] MEDS: THIAMINE HCL 100 MG TABLET PO SCH (09:09)
[2017-05-25] MEDS: FOLIC ACID 1 MG TABLET PO SCH (09:09)
[2017-05-25] MEDS: TIOTROPIUM BROMIDE DPI 5 CAP/KIT (18 MCG/CAP) IH SCH (09:10)
--- NOTE | 2017-05-25 11:07 | RADIOLOGY REPORT (SQ) ---
EXAM DESCRIPTION: CHEST SINGLE VIEW COMPLETED DATE/TIME: 05/25/2017 9:19 am REASON FOR STUDY: follow up pleural effusions COMPARISON: CXR- 05/21/2017, chest CT 05/22/2017 EXAM PARAMETERS: NUMBER OF VIEWS: One view. TECHNIQUE: Single frontal radiographic view of the chest acquired. RADIATION DOSE: NA LIMITATIONS: None. FINDINGS: LUNGS AND PLEURA: Improving basilar density previously shown represent effusions on CT. T here may also be some mild interstitial changes. No new areas of abnormal density. MEDIASTINUM AND HILAR STRUCTURES: No masses. Contour normal. HEART AND VASCULAR STRUCTURES: Heart normal in size. Normal vasculature. BONES: No acute findings. HARDWARE: None in the chest. OTHER: No other significant finding. IMPRESSION: Interval improvement in the appearance of the chest. TECHNICAL DOCUMENTATION: JOB ID: [id number] [employer]- All Rights Reserved
--- NOTE | 2017-05-25 12:26 | PDOC PROGRESS REPORT ---
Subjective Progress Note for:: 05/25/17 Subjective:: Patient is alert and oriented and wants to go to the care home today. Reason For Visit: COPD EXACERBATION, HYPERGLYCEMIA, LEFT LOWER Physical Exam Vital Signs: Temp Pulse Resp BP Pulse Ox 98.8 F 70 16 134/59 H 98 05/25/17 12:05 05/25/17 12:05 05/25/17 12:05 05/25/17 12:05 05/25/17 12:05 Intake & Output 05/24/17 05/25/17 05/26/17 06:59 06:59 06:59 Intake Total 1774 2188 Output Total 2700 3025 Balance -926 -837 Weight 85.6 kg 82.1 kg General appearance: PRESENT: no acute distress Eye exam: PRESENT: conjunctiva pink. ABSENT: scleral icterus Ear exam: PRESENT: normal external ear exam Mouth exam: PRESENT: moist, tongue midline Neck exam: ABSENT: JVD Respiratory exam: PRESENT: clear to auscultation lauren, decreased breath sounds - Decreased in the bases. ABSENT: rales, rhonchi, wheezes Cardiovascular exam: PRESENT: RRR. ABSENT: diastolic murmur, rubs, systolic murmur GI/Abdominal exam: PRESENT: normal bowel sounds, soft. ABSENT: distended, guarding, mass, organolmegaly, rebound, tenderness Extremities exam: ABSENT: calf tenderness, clubbing, pedal edema Neurological exam: PRESENT: alert, awake, oriented to person, oriented to place , oriented to time, oriented to situation, CN II-XII grossly intact. ABSENT: motor sensory deficit Psychiatric exam: PRESENT: appropriate affect Skin exam: PRESENT: dry, intact, warm. ABSENT: cyanosis, rash Results Laboratory Results: 05/25/17 05:30 05/25/17 05:30 05/25/17 05/25/17 05:30 05:30 WBC 10.4 RBC 3.99 Hgb 10.7 L Hct 33.5 L MCV 84 MCH 26.9 L MCHC 32.0 RDW 18.1 H Plt Count 99 L Seg Neutrophils % 69.2 Lymphocytes % 18.6 Monocytes % 7.2 Eosinophils % 4.6 Basophils % 0.4 Absolute Neutrophils 7.2 Absolute Lymphocytes 1.9 Absolute Monocytes 0.8 Absolute Eosinophils 0.5 Absolute Basophils 0.0 Sodium 138.2 Potassium 3.4 L Chloride 97 L Carbon Dioxide 39 H Anion Gap 2 L BUN 29 H Creatinine 0.92 Est GFR ( Amer) > 60 Est GFR (Non-Af Amer) > 60 Glucose 93 Calcium 7.9 L Magnesium 1.5 L 05/10/17 05:15 Creatine Kinase 23 L Impressions: Cervical Spine CT 05/10/17 02:40 IMPRESSION: 1. No acute fracture or subluxation of the cervical spine. This exam was performed according to our departmental dose-optimization program, which includes automated exposure control, adjustment of the mA and/or kV according to patient size and/or use of iterative reconstruction technique. Head CT 05/10/17 02:40 IMPRESSION: 1. No acute intracranial abnormality by CT criteria. This exam was performed according to our departmental dose-optimization program, which includes automated exposure control, adjustment of the mA and/or kV according to patient size and/or use of iterative reconstruction technique. Hip/Pelvis X-Ray 05/10/17 02:42 IMPRESSION: 1. No acute fracture identified. Abdomen Ultrasound 05/18/17 00:00 IMPRESSION: 1. Cholelithiasis with gallbladder wall thickening and possible pericholecystic fluid. This could be seen with acute cholecystitis. 2. In the interpolar right kidney there is a 1.5 cm hypoechoic structure with peripheral echogenic foci of indeterminate etiology. Correlation with contrast-enhanced CT or MRI recommended for definitive characterization. 3. Small amount of perinephric fluid. 4. Small amount of perihepatic ascites. 5. Coarse echogenicity of the liver. This could be seen with cirrhosis. Head MRI 05/19/17 00:00 IMPRESSION: 1. Limited evaluation due to patient motion. 2. No evidence of acute event involving the brain. 3. Atrophy and mild chronic small vessel ischemic disease. 4. Bilateral mastoiditis. EVIDENCE OF ACUTE STROKE: NO. Chest CT 05/22/17 00:00 IMPRESSION: Bilateral free-flowing pleural effusions without walled off empyema. Minimal ascites. Interval since prior CT mild compression fracture of T7. Chest X-Ray 05/25/17 07:00 IMPRESSION: Interval improvement in the appearance of the chest. Assessment & Plan - Diagnosis (1) Acute metabolic encephalopathy Is this a current diagnosis for this admission?: Yes Plan: Resolved. Most likely secondary to her infection. (2) Acute respiratory failure with hypoxemia Is this a current diagnosis for this admission?: Yes Plan: Secondary to COPD. This is resolved. (3) COPD exacerbation Is this a current diagnosis for this admission?: Yes Plan: We will continue inhaled steroids and nebulizers. (4) Pneumonia Qualifiers: Pneumonia type: due to unspecified organism Laterality: unspecified laterality Lung location: unspecified part of lung Qualified Code(s): J18.9 - Pneumonia, unspecified organism Is this a current diagnosis for this admission?: Yes Plan: Resolved (5) Cellulitis Qualifiers: Site of cellulitis: extremity Site of cellulitis of extremity: lower extremity Is this a current diagnosis for this admission?: Yes Plan: Resolved (6) Alcohol abuse Is this a current diagnosis for this admission?: Yes Plan: Patient is alert and oriented 3. (7) Anemia Qualifiers: Anemia type: unspecified type Qualified Code(s): D64.9 - Anemia, unspecified Is this a current diagnosis for this admission?: Yes Plan: Hemoglobin is stable. (8) Anxiety Is this a current diagnosis for this admission?: Yes Plan: We will give Haldol as needed. (9) Diabetes Qualifiers: Diabetes mellitus type: type 2 Diabetes mellitus complication status: with unspecified complications Diabetes mellitus medical terminologist insulin use: with medical terminologist use Qualified Code(s): E11.8 - Type 2 diabetes mellitus with unspecified complications; Z79.4 - longterm (current) use of insulin Is this a current diagnosis for this admission?: Yes Plan: Continue with Lantus and sliding scale insulin. (10) Hypertension Qualifiers: Hypertension type: essential hypertension Qualified Code(s): I10 - Essential (primary) hypertension Is this a current diagnosis for this admission?: Yes Plan: Stable (11) Peripheral vascular disease Is this a current diagnosis for this admission?: Yes (12) Restless leg syndrome Is this a current diagnosis for this admission?: Yes (13) Pleural effusion Is this a current diagnosis for this admission?: Yes Plan: Relatively asymptomatic at this time. Will just observe. - Time Time Spent with patient: 25-34 minutes - Inpatient Certification Medical Necessity: Need Close Monitoring Due to Risk of Patient Decompensation - Plan Summary Plan Summary: Awaiting on placement in rehab.
[2017-05-25] MEDS: HALOPERIDOL 2 MG TABLET PO PRN (13:15)
[2017-05-25] MEDS: ATORVASTATIN CALCIUM 10 MG TABLET PO SCH (22:13)
[2017-05-25] MEDS: INSULIN LISPRO 100 UNIT/ML 3 ML VIAL SUBCUT PRN (23:56)
[2017-05-26] MEDS: HALOPERIDOL 2 MG TABLET PO PRN (01:36)
[2017-05-26] MEDS: FUROSEMIDE INJ/PF 20 MG/2 ML SDV IV SCH ×3 (01:36→17:47)
[2017-05-26] MEDS: LANSOPRAZOLE 15 MG TAB.RAP.DR PO SCH ×2 (06:06→17:47)
[2017-05-26] MEDS: HYDRALAZINE HCL 50 MG TABLET PO SCH ×2 (06:06→13:13)
[2017-05-26] MEDS: INSULIN GLARGINE,HUM.REC.ANLOG 300 UNIT/3 ML INSULN.PEN SUBCUT SCH ×2 (06:07→17:47)
[2017-05-26 07:02] LABS: BLOOD UREA NITROGEN 27 mg/dL (7-20); CALCIUM 8.1 mg/dL (8.4-10.2); CHLORIDE 93 mmol/L (98-107); GLUCOSE 71 mg/dL (75-110); POTASSIUM 3.1 mmol/L (3.6-5.0); SODIUM 139.8 mmol/L (137-145)
[2017-05-26 07:12] LABS: ANION GAP 6 (5-19)
[2017-05-26 07:15] LABS: CARBON DIOXIDE 41 mmol/L (22-30)
[2017-05-26] MEDS: POTASSI CL 20 MEQ/50 ML RIDER 20 MEQ/50 ML RTUPB IV SCH ×2 (09:23→12:21)
[2017-05-26] MEDS: ACETAMINOPHEN 325 MG TABLET PO PRN (09:23)
[2017-05-26] MEDS: DILTIAZEM HCL 240 MG CAPSULE.CR PO SCH (09:24)
[2017-05-26] MEDS: GUAIFENESIN 600 MG TABLET.SA PO SCH (09:24)
[2017-05-26] MEDS: FOLIC ACID 1 MG TABLET PO SCH (09:25)
[2017-05-26] MEDS: POTASSIUM CHLORIDE 10 MEQ TABLET.SA PO SCH (09:26)
[2017-05-26] MEDS: FLUTICASONE/SALMETEROL DISKUS 250-50 MCG/DOSE IH SCH (09:27)
[2017-05-26] MEDS: TIOTROPIUM BROMIDE DPI 5 CAP/KIT (18 MCG/CAP) IH SCH (09:28)
[2017-05-26] MEDS: THIAMINE HCL 100 MG TABLET PO SCH (10:47)
[2017-05-26] MEDS: INSULIN LISPRO 100 UNIT/ML 3 ML VIAL SUBCUT PRN ×2 (13:13→17:47)
--- NOTE | 2017-05-26 13:41 | PDOC PROGRESS REPORT ---
Subjective Progress Note for:: 05/26/17 Subjective:: Patient is alert and oriented. Denies complaints Reason For Visit: COPD EXACERBATION, HYPERGLYCEMIA, LEFT LOWER Physical Exam Vital Signs: Temp Pulse Resp BP Pulse Ox 97.6 F 67 16 154/61 H 99 05/25/17 20:04 05/25/17 20:04 05/25/17 20:04 05/25/17 20:04 05/25/17 20:04 Intake & Output 05/25/17 05/26/17 05/27/17 06:59 06:59 06:59 Intake Total 2188 2347 Output Total 3021 7380 Balance -837 -1253 Weight 82.1 kg 78.4 kg General appearance: PRESENT: no acute distress Eye exam: PRESENT: conjunctiva pink. ABSENT: scleral icterus Mouth exam: PRESENT: moist, tongue midline Neck exam: ABSENT: JVD Respiratory exam: PRESENT: clear to auscultation lauren. ABSENT: rales, rhonchi, wheezes Cardiovascular exam: PRESENT: RRR. ABSENT: diastolic murmur, rubs, systolic murmur GI/Abdominal exam: PRESENT: normal bowel sounds, soft. ABSENT: distended, guarding, mass, organolmegaly, rebound, tenderness Extremities exam: ABSENT: calf tenderness, clubbing, pedal edema Neurological exam: PRESENT: alert, awake, oriented to person, oriented to place , oriented to time, oriented to situation, CN II-XII grossly intact. ABSENT: motor sensory deficit Psychiatric exam: PRESENT: appropriate affect Skin exam: PRESENT: dry, intact, warm. ABSENT: cyanosis, rash Results Laboratory Results: 05/25/17 05:30 05/26/17 06:00 05/26/17 06:00 Sodium 139.8 Potassium 3.1 L Chloride 93 L Carbon Dioxide 41 H* Anion Gap 6 BUN 27 H Creatinine 0.95 Est GFR ( Amer) > 60 Est GFR (Non-Af Amer) 58 L Glucose 71 L Calcium 8.1 L 05/10/17 05:15 Creatine Kinase 23 L Impressions: Cervical Spine CT 05/10/17 02:40 IMPRESSION: 1. No acute fracture or subluxation of the cervical spine. This exam was performed according to our departmental dose-optimization program, which includes automated exposure control, adjustment of the mA and/or kV according to patient size and/or use of iterative reconstruction technique. Head CT 05/10/17 02:40 IMPRESSION: 1. No acute intracranial abnormality by CT criteria. This exam was performed according to our departmental dose-optimization program, which includes automated exposure control, adjustment of the mA and/or kV according to patient size and/or use of iterative reconstruction technique. Hip/Pelvis X-Ray 05/10/17 02:42 IMPRESSION: 1. No acute fracture identified. Abdomen Ultrasound 05/18/17 00:00 IMPRESSION: 1. Cholelithiasis with gallbladder wall thickening and possible pericholecystic fluid. This could be seen with acute cholecystitis. 2. In the interpolar right kidney there is a 1.5 cm hypoechoic structure with peripheral echogenic foci of indeterminate etiology. Correlation with contrast-enhanced CT or MRI recommended for definitive characterization. 3. Small amount of perinephric fluid. 4. Small amount of perihepatic ascites. 5. Coarse echogenicity of the liver. This could be seen with cirrhosis. Head MRI 05/19/17 00:00 IMPRESSION: 1. Limited evaluation due to patient motion. 2. No evidence of acute event involving the brain. 3. Atrophy and mild chronic small vessel ischemic disease. 4. Bilateral mastoiditis. EVIDENCE OF ACUTE STROKE: NO. Chest CT 05/22/17 00:00 IMPRESSION: Bilateral free-flowing pleural effusions without walled off empyema. Minimal ascites. Interval since prior CT mild compression fracture of T7. Chest X-Ray 05/25/17 07:00 IMPRESSION: Interval improvement in the appearance of the chest. Assessment & Plan - Diagnosis (1) Acute metabolic encephalopathy Is this a current diagnosis for this admission?: Yes Plan: Resolved. Most likely secondary to her infection. (2) Acute respiratory failure with hypoxemia Is this a current diagnosis for this admission?: Yes Plan: Secondary to COPD. This is resolved. (3) COPD exacerbation Is this a current diagnosis for this admission?: Yes Plan: We will continue inhaled steroids and nebulizers. (4) Pneumonia Qualifiers: Pneumonia type: due to unspecified organism Laterality: unspecified laterality Lung location: unspecified part of lung Qualified Code(s): J18.9 - Pneumonia, unspecified organism Is this a current diagnosis for this admission?: Yes Plan: Resolved (5) Cellulitis Qualifiers: Site of cellulitis: extremity Site of cellulitis of extremity: lower extremity Is this a current diagnosis for this admission?: Yes Plan: Resolved (6) Alcohol abuse Is this a current diagnosis for this admission?: Yes Plan: Patient is alert and oriented 3. (7) Anemia Qualifiers: Anemia type: unspecified type Qualified Code(s): D64.9 - Anemia, unspecified Is this a current diagnosis for this admission?: Yes Plan: Hemoglobin is stable. (8) Anxiety Is this a current diagnosis for this admission?: Yes Plan: We will give Haldol as needed. 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 (10) Hypertension Qualifiers: Hypertension type: essential hypertension Qualified Code(s): I10 - Essential (primary) hypertension Is this a current diagnosis for this admission?: Yes Plan: Stable (11) Peripheral vascular disease Is this a current diagnosis for this admission?: Yes (12) Restless leg syndrome Is this a current diagnosis for this admission?: Yes (13) Pleural effusion Is this a current diagnosis for this admission?: Yes Plan: Relatively asymptomatic at this time. Will just observe. - Time Time Spent with patient: 25-34 minutes - Inpatient Certification Medical Necessity: Need Close Monitoring Due to Risk of Patient Decompensation
[2017-05-27] MEDS: INSULIN LISPRO 100 UNIT/ML 3 ML VIAL SUBCUT PRN ×5 (00:53→21:17)
[2017-05-27] MEDS: POTASSIUM CHLORIDE 10 MEQ TABLET.SA PO SCH ×3 (00:54→20:55)
[2017-05-27] MEDS: FLUTICASONE/SALMETEROL DISKUS 250-50 MCG/DOSE IH SCH ×3 (00:54→20:58)
[2017-05-27] MEDS: GUAIFENESIN 600 MG TABLET.SA PO SCH ×3 (00:55→20:59)
[2017-05-27] MEDS: ATORVASTATIN CALCIUM 10 MG TABLET PO SCH ×2 (00:56→20:56)
[2017-05-27] MEDS: HYDRALAZINE HCL 50 MG TABLET PO SCH ×4 (00:56→20:56)
[2017-05-27] MEDS: HALOPERIDOL 2 MG TABLET PO PRN ×2 (02:10→20:56)
[2017-05-27] MEDS: FUROSEMIDE INJ/PF 20 MG/2 ML SDV IV SCH ×3 (02:10→17:44)
[2017-05-27] MEDS: INSULIN GLARGINE,HUM.REC.ANLOG 300 UNIT/3 ML INSULN.PEN SUBCUT SCH ×2 (06:11→17:44)
[2017-05-27] MEDS: LANSOPRAZOLE 15 MG TAB.RAP.DR PO SCH ×2 (06:11→17:44)
[2017-05-27 07:49] LABS: BLOOD UREA NITROGEN 18 mg/dL (7-20); CHLORIDE 89 mmol/L (98-107); GLUCOSE 181 mg/dL (75-110); POTASSIUM 3.2 mmol/L (3.6-5.0); SODIUM 135.7 mmol/L (137-145)
[2017-05-27 07:56] LABS: ANION GAP 7 (5-19)
[2017-05-27 08:02] LABS: CARBON DIOXIDE 40 mmol/L (22-30)
[2017-05-27] MEDS: THIAMINE HCL 100 MG TABLET PO SCH (09:19)
[2017-05-27] MEDS: FOLIC ACID 1 MG TABLET PO SCH (09:19)
[2017-05-27] MEDS: DILTIAZEM HCL 240 MG CAPSULE.CR PO SCH (09:19)
[2017-05-27] MEDS: TIOTROPIUM BROMIDE DPI 5 CAP/KIT (18 MCG/CAP) IH SCH (09:32)
--- NOTE | 2017-05-27 12:00 | PDOC PROGRESS REPORT ---
Subjective Progress Note for:: 05/27/17 Subjective:: Patient is alert and oriented. Denies complaints Reason For Visit: COPD EXACERBATION, HYPERGLYCEMIA, LEFT LOWER Physical Exam Vital Signs: Temp Pulse Resp BP Pulse Ox 97.5 F 74 16 146/60 H 95 05/27/17 07:22 05/27/17 07:22 05/27/17 07:22 05/27/17 07:22 05/27/17 07:22 Intake & Output 05/26/17 05/27/17 05/28/17 06:59 06:59 06:59 Intake Total 2347 2704 Output Total 3600 2600 Balance -1253 104 Weight 78.4 kg 79.5 kg General appearance: PRESENT: no acute distress Eye exam: PRESENT: conjunctiva pink. ABSENT: scleral icterus Mouth exam: PRESENT: moist, tongue midline Neck exam: ABSENT: JVD Respiratory exam: PRESENT: clear to auscultation lauren. ABSENT: rales, rhonchi, wheezes Cardiovascular exam: PRESENT: RRR. ABSENT: diastolic murmur, rubs, systolic murmur GI/Abdominal exam: PRESENT: normal bowel sounds, soft. ABSENT: distended, guarding, mass, organolmegaly, rebound, tenderness Extremities exam: ABSENT: calf tenderness, clubbing, pedal edema Neurological exam: PRESENT: alert, awake, oriented to person, oriented to place , oriented to time, oriented to situation, CN II-XII grossly intact. ABSENT: motor sensory deficit Psychiatric exam: PRESENT: appropriate affect Skin exam: PRESENT: dry, intact, warm. ABSENT: cyanosis, rash Results Laboratory Results: 05/25/17 05:30 05/27/17 06:49 05/27/17 06:49 Sodium 135.7 L Potassium 3.2 L Chloride 89 L Carbon Dioxide 40 H* Anion Gap 7 BUN 18 Creatinine 0.93 Est GFR ( Amer) > 60 Est GFR (Non-Af Amer) 59 L Glucose 181 H Calcium 8.0 L 05/10/17 05:15 Creatine Kinase 23 L Impressions: Cervical Spine CT 05/10/17 02:40 IMPRESSION: 1. No acute fracture or subluxation of the cervical spine. This exam was performed according to our departmental dose-optimization program, which includes automated exposure control, adjustment of the mA and/or kV according to patient size and/or use of iterative reconstruction technique. Head CT 05/10/17 02:40 IMPRESSION: 1. No acute intracranial abnormality by CT criteria. This exam was performed according to our departmental dose-optimization program, which includes automated exposure control, adjustment of the mA and/or kV according to patient size and/or use of iterative reconstruction technique. Hip/Pelvis X-Ray 05/10/17 02:42 IMPRESSION: 1. No acute fracture identified. Abdomen Ultrasound 05/18/17 00:00 IMPRESSION: 1. Cholelithiasis with gallbladder wall thickening and possible pericholecystic fluid. This could be seen with acute cholecystitis. 2. In the interpolar right kidney there is a 1.5 cm hypoechoic structure with peripheral echogenic foci of indeterminate etiology. Correlation with contrast-enhanced CT or MRI recommended for definitive characterization. 3. Small amount of perinephric fluid. 4. Small amount of perihepatic ascites. 5. Coarse echogenicity of the liver. This could be seen with cirrhosis. Head MRI 05/19/17 00:00 IMPRESSION: 1. Limited evaluation due to patient motion. 2. No evidence of acute event involving the brain. 3. Atrophy and mild chronic small vessel ischemic disease. 4. Bilateral mastoiditis. EVIDENCE OF ACUTE STROKE: NO. Chest CT 05/22/17 00:00 IMPRESSION: Bilateral free-flowing pleural effusions without walled off empyema. Minimal ascites. Interval since prior CT mild compression fracture of T7. Chest X-Ray 05/25/17 07:00 IMPRESSION: Interval improvement in the appearance of the chest. Assessment & Plan - Diagnosis (1) Acute metabolic encephalopathy Is this a current diagnosis for this admission?: Yes Plan: Resolved. Most likely secondary to her infection. (2) Acute respiratory failure with hypoxemia Is this a current diagnosis for this admission?: Yes Plan: Secondary to COPD. This is resolved. (3) COPD exacerbation Is this a current diagnosis for this admission?: Yes Plan: We will continue inhaled steroids and nebulizers. (4) Pneumonia Qualifiers: Pneumonia type: due to unspecified organism Laterality: unspecified laterality Lung location: unspecified part of lung Qualified Code(s): J18.9 - Pneumonia, unspecified organism Is this a current diagnosis for this admission?: Yes Plan: Resolved (5) Cellulitis Qualifiers: Site of cellulitis: extremity Site of cellulitis of extremity: lower extremity Is this a current diagnosis for this admission?: Yes Plan: Resolved (6) Alcohol abuse Is this a current diagnosis for this admission?: Yes Plan: Patient is alert and oriented 3. (7) Anemia Qualifiers: Anemia type: unspecified type Qualified Code(s): D64.9 - Anemia, unspecified Is this a current diagnosis for this admission?: Yes Plan: Hemoglobin is stable. (8) Anxiety Is this a current diagnosis for this admission?: Yes Plan: We will give Haldol as needed. 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 (10) Hypertension Qualifiers: Hypertension type: essential hypertension Qualified Code(s): I10 - Essential (primary) hypertension Is this a current diagnosis for this admission?: Yes Plan: Stable (11) Peripheral vascular disease Is this a current diagnosis for this admission?: Yes (12) Restless leg syndrome Is this a current diagnosis for this admission?: Yes (13) Pleural effusion Is this a current diagnosis for this admission?: Yes Plan: Relatively asymptomatic at this time. Will just observe. (14) Hypokalemia Is this a current diagnosis for this admission?: Yes Plan: We will replace and continue to monitor. - Time Time Spent with patient: 25-34 minutes - Plan Summary Plan Summary: Awaiting placement in rehab.
[2017-05-27] MEDS ORDERED: POTASSIUM CHLORIDE 10 MEQ TABLET.SA PO ONE ×2 (13:00)
[2017-05-28] MEDS: FUROSEMIDE INJ/PF 20 MG/2 ML SDV IV SCH ×3 (03:15→17:30)
[2017-05-28 06:56] LABS: ANION GAP 5 (5-19); BLOOD UREA NITROGEN 20 mg/dL (7-20); CALCIUM 8.5 mg/dL (8.4-10.2); CARBON DIOXIDE 38 mmol/L (22-30); CHLORIDE 93 mmol/L (98-107); GLUCOSE 190 mg/dL (75-110); SODIUM 135.7 mmol/L (137-145)
[2017-05-28] MEDS: INSULIN LISPRO 100 UNIT/ML 3 ML VIAL SUBCUT PRN ×4 (07:42→23:13)
[2017-05-28] MEDS: INSULIN GLARGINE,HUM.REC.ANLOG 300 UNIT/3 ML INSULN.PEN SUBCUT SCH ×2 (07:49→17:28)
[2017-05-28] MEDS: LANSOPRAZOLE 15 MG TAB.RAP.DR PO SCH ×2 (07:51→16:39)
[2017-05-28] MEDS: HYDRALAZINE HCL 50 MG TABLET PO SCH ×3 (07:51→21:39)
[2017-05-28] MEDS: POTASSIUM CHLORIDE 10 MEQ TABLET.SA PO SCH ×2 (10:23→21:39)
[2017-05-28] MEDS: DILTIAZEM HCL 240 MG CAPSULE.CR PO SCH (10:23)
[2017-05-28] MEDS: THIAMINE HCL 100 MG TABLET PO SCH (10:23)
[2017-05-28] MEDS: GUAIFENESIN 600 MG TABLET.SA PO SCH ×2 (10:23→21:40)
[2017-05-28] MEDS: FOLIC ACID 1 MG TABLET PO SCH (10:23)
[2017-05-28] MEDS: FLUTICASONE/SALMETEROL DISKUS 250-50 MCG/DOSE IH SCH ×2 (10:34→21:40)
--- NOTE | 2017-05-28 12:43 | PDOC PROGRESS REPORT ---
Subjective Progress Note for:: 05/28/17 Subjective:: Patient is alert and oriented. Denies complaints Reason For Visit: COPD EXACERBATION, HYPERGLYCEMIA, LEFT LOWER Physical Exam Vital Signs: Temp Pulse Resp BP Pulse Ox 98.3 F 73 18 149/66 H 97 05/28/17 07:42 05/28/17 07:42 05/28/17 07:42 05/28/17 07:42 05/28/17 07:42 Intake & Output 05/27/17 05/28/17 05/29/17 06:59 06:59 06:59 Intake Total 2704 1291 Output Total 2600 2650 Balance 104 -1359 Weight 79.5 kg General appearance: PRESENT: no acute distress Eye exam: PRESENT: conjunctiva pink. ABSENT: scleral icterus Neck exam: ABSENT: JVD Respiratory exam: PRESENT: clear to auscultation lauren. ABSENT: rales, rhonchi, wheezes Cardiovascular exam: PRESENT: RRR. ABSENT: diastolic murmur, rubs, systolic murmur GI/Abdominal exam: PRESENT: normal bowel sounds, soft. ABSENT: distended, guarding, mass, organolmegaly, rebound, tenderness Extremities exam: ABSENT: calf tenderness, clubbing, pedal edema Neurological exam: PRESENT: alert, awake, oriented to person, oriented to place , oriented to time, oriented to situation, CN II-XII grossly intact. ABSENT: motor sensory deficit Psychiatric exam: PRESENT: appropriate affect Skin exam: PRESENT: dry, intact, warm. ABSENT: cyanosis, rash Results Laboratory Results: 05/25/17 05:30 05/28/17 06:04 05/28/17 06:04 Sodium 135.7 L Potassium 4.0 Chloride 93 L Carbon Dioxide 38 H Anion Gap 5 BUN 20 Creatinine 1.02 Est GFR ( Amer) > 60 Est GFR (Non-Af Amer) 53 L Glucose 190 H Calcium 8.5 05/10/17 05:15 Creatine Kinase 23 L Impressions: Cervical Spine CT 05/10/17 02:40 IMPRESSION: 1. No acute fracture or subluxation of the cervical spine. This exam was performed according to our departmental dose-optimization program, which includes automated exposure control, adjustment of the mA and/or kV according to patient size and/or use of iterative reconstruction technique. Head CT 05/10/17 02:40 IMPRESSION: 1. No acute intracranial abnormality by CT criteria. This exam was performed according to our departmental dose-optimization program, which includes automated exposure control, adjustment of the mA and/or kV according to patient size and/or use of iterative reconstruction technique. Hip/Pelvis X-Ray 05/10/17 02:42 IMPRESSION: 1. No acute fracture identified. Abdomen Ultrasound 05/18/17 00:00 IMPRESSION: 1. Cholelithiasis with gallbladder wall thickening and possible pericholecystic fluid. This could be seen with acute cholecystitis. 2. In the interpolar right kidney there is a 1.5 cm hypoechoic structure with peripheral echogenic foci of indeterminate etiology. Correlation with contrast-enhanced CT or MRI recommended for definitive characterization. 3. Small amount of perinephric fluid. 4. Small amount of perihepatic ascites. 5. Coarse echogenicity of the liver. This could be seen with cirrhosis. Head MRI 05/19/17 00:00 IMPRESSION: 1. Limited evaluation due to patient motion. 2. No evidence of acute event involving the brain. 3. Atrophy and mild chronic small vessel ischemic disease. 4. Bilateral mastoiditis. EVIDENCE OF ACUTE STROKE: NO. Chest CT 05/22/17 00:00 IMPRESSION: Bilateral free-flowing pleural effusions without walled off empyema. Minimal ascites. Interval since prior CT mild compression fracture of T7. Chest X-Ray 05/25/17 07:00 IMPRESSION: Interval improvement in the appearance of the chest. Assessment & Plan - Diagnosis (1) Acute metabolic encephalopathy Is this a current diagnosis for this admission?: Yes Plan: Resolved. Most likely secondary to her infection. (2) Acute respiratory failure with hypoxemia Is this a current diagnosis for this admission?: Yes Plan: Secondary to COPD. This is resolved. (3) COPD exacerbation Is this a current diagnosis for this admission?: Yes Plan: We will continue inhaled steroids and nebulizers. (4) Pneumonia Qualifiers: Pneumonia type: due to unspecified organism Laterality: unspecified laterality Lung location: unspecified part of lung Qualified Code(s): J18.9 - Pneumonia, unspecified organism Is this a current diagnosis for this admission?: Yes Plan: Resolved (5) Cellulitis Qualifiers: Site of cellulitis: extremity Site of cellulitis of extremity: lower extremity Is this a current diagnosis for this admission?: Yes Plan: Resolved (6) Alcohol abuse Is this a current diagnosis for this admission?: Yes Plan: Patient is alert and oriented 3. (7) Anemia Qualifiers: Anemia type: unspecified type Qualified Code(s): D64.9 - Anemia, unspecified Is this a current diagnosis for this admission?: Yes Plan: Hemoglobin is stable. (8) Anxiety Is this a current diagnosis for this admission?: Yes Plan: We will give Haldol as needed. 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 (10) Hypertension Qualifiers: Hypertension type: essential hypertension Qualified Code(s): I10 - Essential (primary) hypertension Is this a current diagnosis for this admission?: Yes Plan: Stable (11) Peripheral vascular disease Is this a current diagnosis for this admission?: Yes (12) Restless leg syndrome Is this a current diagnosis for this admission?: Yes (13) Pleural effusion Is this a current diagnosis for this admission?: Yes Plan: Relatively asymptomatic at this time. Will just observe. (14) Hypokalemia Is this a current diagnosis for this admission?: Yes Plan: We will replace and continue to monitor. - Time Time Spent with patient: 25-34 minutes - Inpatient Certification Medical Necessity: Need Close Monitoring Due to Risk of Patient Decompensation - Plan Summary Plan Summary: Awaiting on placement.
[2017-05-28] MEDS: TIOTROPIUM BROMIDE DPI 5 CAP/KIT (18 MCG/CAP) IH SCH (15:41)
[2017-05-28] MEDS: ATORVASTATIN CALCIUM 10 MG TABLET PO SCH (21:39)
[2017-05-28] MEDS: HALOPERIDOL 2 MG TABLET PO PRN (21:39)
[2017-05-29] MEDS: FUROSEMIDE INJ/PF 20 MG/2 ML SDV IV SCH ×3 (06:18→18:02)
[2017-05-29] MEDS: HYDRALAZINE HCL 50 MG TABLET PO SCH ×3 (06:36→22:09)
[2017-05-29] MEDS: LANSOPRAZOLE 15 MG TAB.RAP.DR PO SCH ×2 (06:36→18:01)
[2017-05-29] MEDS ORDERED: INSULIN GLARGINE,HUM.REC.ANLOG 1,000 UNIT/10 ML UNIT SUBCUT ONE (08:54)
[2017-05-29] MEDS: INSULIN GLARGINE,HUM.REC.ANLOG 300 UNIT/3 ML INSULN.PEN SUBCUT SCH ×2 (08:58→18:02)
[2017-05-29] MEDS: TIOTROPIUM BROMIDE DPI 5 CAP/KIT (18 MCG/CAP) IH SCH (11:21)
[2017-05-29] MEDS: FLUTICASONE/SALMETEROL DISKUS 250-50 MCG/DOSE IH SCH ×2 (11:22→22:09)
[2017-05-29] MEDS: GUAIFENESIN 600 MG TABLET.SA PO SCH ×2 (11:23→22:09)
[2017-05-29] MEDS: DILTIAZEM HCL 240 MG CAPSULE.CR PO SCH (11:24)
[2017-05-29] MEDS: THIAMINE HCL 100 MG TABLET PO SCH (11:24)
[2017-05-29] MEDS: FOLIC ACID 1 MG TABLET PO SCH (11:24)
[2017-05-29] MEDS: POTASSIUM CHLORIDE 10 MEQ TABLET.SA PO SCH ×2 (11:24→22:09)
[2017-05-29] MEDS: ACETAMINOPHEN 325 MG TABLET PO PRN (12:38)
--- NOTE | 2017-05-29 12:38 | PDOC PROGRESS REPORT ---
Subjective Progress Note for:: 05/29/17 Subjective:: Patient is alert and oriented. Denies complaints Reason For Visit: COPD EXACERBATION, HYPERGLYCEMIA, LEFT LOWER Physical Exam Vital Signs: Temp Pulse Resp BP Pulse Ox 98.2 F 80 20 157/72 H 98 05/29/17 07:26 05/29/17 07:26 05/29/17 07:26 05/29/17 07:26 05/29/17 07:26 Intake & Output 05/28/17 05/29/17 05/30/17 06:59 06:59 06:59 Intake Total 1291 1612 Output Total 2650 300 Balance -1359 1312 Weight 80.8 kg General appearance: PRESENT: no acute distress Eye exam: PRESENT: conjunctiva pink. ABSENT: scleral icterus Neck exam: ABSENT: JVD Respiratory exam: PRESENT: clear to auscultation lauren. ABSENT: rales, rhonchi, wheezes Cardiovascular exam: PRESENT: RRR. ABSENT: diastolic murmur, rubs, systolic murmur GI/Abdominal exam: PRESENT: normal bowel sounds, soft. ABSENT: distended, guarding, mass, organolmegaly, rebound, tenderness Extremities exam: ABSENT: calf tenderness, clubbing, pedal edema Neurological exam: PRESENT: alert, awake, oriented to person, oriented to place , oriented to time, oriented to situation, CN II-XII grossly intact. ABSENT: motor sensory deficit Psychiatric exam: PRESENT: appropriate affect Results Laboratory Results: 05/25/17 05:30 05/28/17 06:04 05/10/17 05:15 Creatine Kinase 23 L Impressions: Cervical Spine CT 05/10/17 02:40 IMPRESSION: 1. No acute fracture or subluxation of the cervical spine. This exam was performed according to our departmental dose-optimization program, which includes automated exposure control, adjustment of the mA and/or kV according to patient size and/or use of iterative reconstruction technique. Head CT 05/10/17 02:40 IMPRESSION: 1. No acute intracranial abnormality by CT criteria. This exam was performed according to our departmental dose-optimization program, which includes automated exposure control, adjustment of the mA and/or kV according to patient size and/or use of iterative reconstruction technique. Hip/Pelvis X-Ray 05/10/17 02:42 IMPRESSION: 1. No acute fracture identified. Abdomen Ultrasound 05/18/17 00:00 IMPRESSION: 1. Cholelithiasis with gallbladder wall thickening and possible pericholecystic fluid. This could be seen with acute cholecystitis. 2. In the interpolar right kidney there is a 1.5 cm hypoechoic structure with peripheral echogenic foci of indeterminate etiology. Correlation with contrast-enhanced CT or MRI recommended for definitive characterization. 3. Small amount of perinephric fluid. 4. Small amount of perihepatic ascites. 5. Coarse echogenicity of the liver. This could be seen with cirrhosis. Head MRI 05/19/17 00:00 IMPRESSION: 1. Limited evaluation due to patient motion. 2. No evidence of acute event involving the brain. 3. Atrophy and mild chronic small vessel ischemic disease. 4. Bilateral mastoiditis. EVIDENCE OF ACUTE STROKE: NO. Chest CT 05/22/17 00:00 IMPRESSION: Bilateral free-flowing pleural effusions without walled off empyema. Minimal ascites. Interval since prior CT mild compression fracture of T7. Chest X-Ray 05/25/17 07:00 IMPRESSION: Interval improvement in the appearance of the chest. Assessment & Plan - Diagnosis (1) Acute metabolic encephalopathy Is this a current diagnosis for this admission?: Yes Plan: Resolved. Most likely secondary to her infection and alcohol use (2) Acute respiratory failure with hypoxemia Is this a current diagnosis for this admission?: Yes Plan: Secondary to COPD. This is resolved. (3) COPD exacerbation Is this a current diagnosis for this admission?: Yes Plan: We will continue inhaled steroids and nebulizers. (4) Pneumonia Qualifiers: Pneumonia type: due to unspecified organism Laterality: unspecified laterality Lung location: unspecified part of lung Qualified Code(s): J18.9 - Pneumonia, unspecified organism Is this a current diagnosis for this admission?: Yes Plan: Resolved (5) Cellulitis Qualifiers: Site of cellulitis: extremity Site of cellulitis of extremity: lower extremity Is this a current diagnosis for this admission?: Yes Plan: Resolved (6) Alcohol abuse Is this a current diagnosis for this admission?: Yes Plan: Patient is alert and oriented 3. (7) Anemia Qualifiers: Anemia type: unspecified type Qualified Code(s): D64.9 - Anemia, unspecified Is this a current diagnosis for this admission?: Yes Plan: Hemoglobin is stable. (8) Anxiety Is this a current diagnosis for this admission?: Yes Plan: We will give Haldol as needed. 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 (10) Hypertension Qualifiers: Hypertension type: essential hypertension Qualified Code(s): I10 - Essential (primary) hypertension Is this a current diagnosis for this admission?: Yes Plan: Stable (11) Peripheral vascular disease Is this a current diagnosis for this admission?: Yes (12) Restless leg syndrome Is this a current diagnosis for this admission?: Yes (13) Pleural effusion Is this a current diagnosis for this admission?: Yes Plan: Relatively asymptomatic at this time. Will just observe. (14) Hypokalemia Is this a current diagnosis for this admission?: Yes Plan: Resolved - Time Time Spent with patient: 25-34 minutes - Plan Summary Plan Summary: We will go to rehab on Wednesday.
[2017-05-29] MEDS: INSULIN LISPRO 100 UNIT/ML 3 ML VIAL SUBCUT PRN ×2 (13:22→18:19)
[2017-05-29] MEDS: ATORVASTATIN CALCIUM 10 MG TABLET PO SCH (22:09)
[2017-05-29] MEDS: HALOPERIDOL 2 MG TABLET PO PRN (22:22)
[2017-05-30] MEDS: ACETAMINOPHEN 325 MG TABLET PO PRN (01:48)
[2017-05-30] MEDS: FUROSEMIDE INJ/PF 20 MG/2 ML SDV IV SCH ×3 (01:48→17:04)
[2017-05-30] MEDS: HYDRALAZINE HCL 50 MG TABLET PO SCH ×3 (05:36→22:41)
[2017-05-30] MEDS: LANSOPRAZOLE 15 MG TAB.RAP.DR PO SCH ×2 (05:37→17:03)
[2017-05-30] MEDS: INSULIN GLARGINE,HUM.REC.ANLOG 300 UNIT/3 ML INSULN.PEN SUBCUT SCH ×2 (10:29→17:04)
--- NOTE | 2017-05-30 10:30 | PDOC PROGRESS REPORT ---
Subjective Progress Note for:: 05/30/17 Subjective:: Patient is alert and oriented. Denies complaints Reason For Visit: COPD EXACERBATION, HYPERGLYCEMIA, LEFT LOWER Physical Exam Vital Signs: Temp Pulse Resp BP Pulse Ox 97.7 F 96 16 148/61 H 99 05/30/17 07:29 05/30/17 07:29 05/30/17 07:29 05/30/17 07:29 05/30/17 07:29 Intake & Output 05/29/17 05/30/17 05/31/17 06:59 06:59 06:59 Intake Total 1612 1693 Output Total 300 Balance 1312 1693 Weight 80.8 kg 80 kg General appearance: PRESENT: no acute distress Eye exam: PRESENT: conjunctiva pink. ABSENT: scleral icterus Mouth exam: PRESENT: moist, tongue midline Neck exam: ABSENT: JVD Psychiatric exam: PRESENT: appropriate affect Results Laboratory Results: 05/25/17 05:30 05/28/17 06:04 05/10/17 05:15 Creatine Kinase 23 L Impressions: Cervical Spine CT 05/10/17 02:40 IMPRESSION: 1. No acute fracture or subluxation of the cervical spine. This exam was performed according to our departmental dose-optimization program, which includes automated exposure control, adjustment of the mA and/or kV according to patient size and/or use of iterative reconstruction technique. Head CT 05/10/17 02:40 IMPRESSION: 1. No acute intracranial abnormality by CT criteria. This exam was performed according to our departmental dose-optimization program, which includes automated exposure control, adjustment of the mA and/or kV according to patient size and/or use of iterative reconstruction technique. Hip/Pelvis X-Ray 05/10/17 02:42 IMPRESSION: 1. No acute fracture identified. Abdomen Ultrasound 05/18/17 00:00 IMPRESSION: 1. Cholelithiasis with gallbladder wall thickening and possible pericholecystic fluid. This could be seen with acute cholecystitis. 2. In the interpolar right kidney there is a 1.5 cm hypoechoic structure with peripheral echogenic foci of indeterminate etiology. Correlation with contrast-enhanced CT or MRI recommended for definitive characterization. 3. Small amount of perinephric fluid. 4. Small amount of perihepatic ascites. 5. Coarse echogenicity of the liver. This could be seen with cirrhosis. Head MRI 05/19/17 00:00 IMPRESSION: 1. Limited evaluation due to patient motion. 2. No evidence of acute event involving the brain. 3. Atrophy and mild chronic small vessel ischemic disease. 4. Bilateral mastoiditis. EVIDENCE OF ACUTE STROKE: NO. Chest CT 05/22/17 00:00 IMPRESSION: Bilateral free-flowing pleural effusions without walled off empyema. Minimal ascites. Interval since prior CT mild compression fracture of T7. Chest X-Ray 05/25/17 07:00 IMPRESSION: Interval improvement in the appearance of the chest. Assessment & Plan - Diagnosis (1) Acute metabolic encephalopathy Is this a current diagnosis for this admission?: Yes Plan: Resolved. Most likely secondary to her infection and alcohol use (2) Acute respiratory failure with hypoxemia Is this a current diagnosis for this admission?: Yes Plan: Secondary to COPD. This is resolved. (3) COPD exacerbation Is this a current diagnosis for this admission?: Yes Plan: We will continue inhaled steroids and nebulizers. (4) Pneumonia Qualifiers: Pneumonia type: due to unspecified organism Laterality: unspecified laterality Lung location: unspecified part of lung Qualified Code(s): J18.9 - Pneumonia, unspecified organism Is this a current diagnosis for this admission?: Yes Plan: Resolved (5) Cellulitis Qualifiers: Site of cellulitis: extremity Site of cellulitis of extremity: lower extremity Is this a current diagnosis for this admission?: Yes Plan: Resolved (6) Alcohol abuse Is this a current diagnosis for this admission?: Yes Plan: Patient is alert and oriented 3. (7) Anemia Qualifiers: Anemia type: unspecified type Qualified Code(s): D64.9 - Anemia, unspecified Is this a current diagnosis for this admission?: Yes Plan: Hemoglobin is stable. (8) Anxiety Is this a current diagnosis for this admission?: Yes Plan: We will give Haldol as needed. (9) Diabetes Qualifiers: Diabetes mellitus type: type 2 Diabetes mellitus complication status: with unspecified complications Diabetes mellitus sheet rock finisher insulin use: with sheet rock finisher use Qualified Code(s): E11.8 - Type 2 diabetes mellitus with unspecified complications; Z79.4 - banana room cutter (current) use of insulin Is this a current diagnosis for this admission?: Yes Plan: Continue with Lantus and sliding scale insulin. (10) Hypertension Qualifiers: Hypertension type: essential hypertension Qualified Code(s): I10 - Essential (primary) hypertension Is this a current diagnosis for this admission?: Yes Plan: Stable (11) Peripheral vascular disease Is this a current diagnosis for this admission?: Yes (12) Restless leg syndrome Is this a current diagnosis for this admission?: Yes (13) Pleural effusion Is this a current diagnosis for this admission?: Yes (14) Hypokalemia Is this a current diagnosis for this admission?: Yes Plan: Resolved - Time Time Spent with patient: 15-24 minutes - Plan Summary Plan Summary: Awaiting placement.
[2017-05-30] MEDS: FLUTICASONE/SALMETEROL DISKUS 250-50 MCG/DOSE IH SCH ×2 (10:46→22:41)
[2017-05-30] MEDS: TIOTROPIUM BROMIDE DPI 5 CAP/KIT (18 MCG/CAP) IH SCH (10:47)
[2017-05-30] MEDS: DILTIAZEM HCL 240 MG CAPSULE.CR PO SCH (10:48)
[2017-05-30] MEDS: FOLIC ACID 1 MG TABLET PO SCH (10:48)
[2017-05-30] MEDS: POTASSIUM CHLORIDE 10 MEQ TABLET.SA PO SCH ×2 (10:48→22:41)
[2017-05-30] MEDS: THIAMINE HCL 100 MG TABLET PO SCH (10:48)
[2017-05-30] MEDS: GUAIFENESIN 600 MG TABLET.SA PO SCH ×2 (10:49→22:41)
[2017-05-30] MEDS: INSULIN LISPRO 100 UNIT/ML 3 ML VIAL SUBCUT PRN ×2 (11:43→17:05)
[2017-05-30] MEDS: ATORVASTATIN CALCIUM 10 MG TABLET PO SCH (22:41)
[2017-05-30] MEDS: HALOPERIDOL 2 MG TABLET PO PRN (22:41)
[2017-05-31] MEDS: ACETAMINOPHEN 325 MG TABLET PO PRN ×2 (01:16→13:23)
[2017-05-31] MEDS: FUROSEMIDE INJ/PF 20 MG/2 ML SDV IV SCH ×3 (03:09→17:23)
[2017-05-31] MEDS: HYDRALAZINE HCL 50 MG TABLET PO SCH ×2 (06:45→13:20)
[2017-05-31] MEDS: LANSOPRAZOLE 15 MG TAB.RAP.DR PO SCH ×2 (06:45→16:35)
[2017-05-31] MEDS: INSULIN GLARGINE,HUM.REC.ANLOG 300 UNIT/3 ML INSULN.PEN SUBCUT SCH ×2 (06:45→17:20)
[2017-05-31] MEDS: INSULIN LISPRO 100 UNIT/ML 3 ML VIAL SUBCUT PRN ×3 (08:08→16:35)
[2017-05-31 09:12] VITALS: BP 148/61
[2017-05-31] MEDS: THIAMINE HCL 100 MG TABLET PO SCH (09:43)
[2017-05-31] MEDS: FLUTICASONE/SALMETEROL DISKUS 250-50 MCG/DOSE IH SCH (09:43)
[2017-05-31] MEDS: TIOTROPIUM BROMIDE DPI 5 CAP/KIT (18 MCG/CAP) IH SCH (09:43)
[2017-05-31] MEDS: FOLIC ACID 1 MG TABLET PO SCH (09:44)
[2017-05-31] MEDS: GUAIFENESIN 600 MG TABLET.SA PO SCH (09:44)
[2017-05-31] MEDS: POTASSIUM CHLORIDE 10 MEQ TABLET.SA PO SCH (09:44)
[2017-05-31] MEDS: DILTIAZEM HCL 240 MG CAPSULE.CR PO SCH (09:44)
--- NOTE | 2017-05-31 10:35 | PDOC TRANSFER SUMMARY ---
General - Admit/Disc Date/PCP Admission Date/Primary Care Provider: 05/10/17 04:19 Discharge Date: 05/31/17 - Discharge Diagnosis (1) Acute metabolic encephalopathy Is this a current diagnosis for this admission?: Yes Summary: Secondary to chronic alcohol abuse. Her encephalopathy has resolved. (2) Acute respiratory failure with hypoxemia Is this a current diagnosis for this admission?: Yes Summary: Secondary to acute COPD exacerbation. (3) COPD exacerbation Is this a current diagnosis for this admission?: Yes (4) Pneumonia Is this a current diagnosis for this admission?: Yes Summary: Negative cultures. Status post treatment with Rocephin and Zithromax. She has completed a course of antibiotics. (5) Cellulitis Is this a current diagnosis for this admission?: Yes Summary: Cellulitis of the leg. Resolved (6) Alcohol abuse Is this a current diagnosis for this admission?: Yes Summary: Patient developed delirium tremens and metabolic encephalopathy while hospitalized. This has resolved. (7) Anemia Is this a current diagnosis for this admission?: Yes (8) Anxiety Is this a current diagnosis for this admission?: Yes (9) Diabetes Is this a current diagnosis for this admission?: Yes (10) Hypertension Is this a current diagnosis for this admission?: Yes (11) Peripheral vascular disease Is this a current diagnosis for this admission?: Yes (12) Restless leg syndrome Is this a current diagnosis for this admission?: Yes (13) Pleural effusion Is this a current diagnosis for this admission?: Yes (14) Hypokalemia Is this a current diagnosis for this admission?: Yes - Additional Information Resuscitation Status: Do Not Resuscitate Discharge Diet: Cardiac, Diabetic Discharge Activity: Activity As Tolerated Prescriptions: Furosemide [Lasix 20 mg Tablet] 20 mg PO BID #60 tablet Home Medications: Atorvastatin Calcium [Lipitor 10 mg Tablet] 10 mg PO QHS 05/10/17 Folic Acid [Folvite 1 mg Tablet] 1 mg PO DAILY 05/10/17 Insulin Glargine,Hum.rec.anlog [Lantus Solostar] 40 units SQ BID 05/10/17 Ipratropium/Albuterol Sulfate [Iprat-Albut 0.5-3(2.5) mg/3 ml] 3 ml NEB Q6 05/10 Rivaroxaban [Xarelto] 10 mg PO QHS 05/10/17 Diltiazem HCl [Cardizem Cd 240 mg Capsule.cr] 240 mg PO DAILY capsule.cr Furosemide [Lasix 20 mg Tablet] 20 mg PO BID #60 tablet 05/31/17 Hydralazine HCl [Apresoline 50 mg Tablet] 50 mg PO Q8 tablet 05/31/17 Nicotine [Nicoderm 21 mg/24 Hr Transderm Patch] 1 each TD DAILYP PRN patch.td24 05/31/17 Potassium Chloride [Klor-Con 10 Meq Tablet.sa] 40 meq PO Q12 tablet.sa Thiamine HCl [Thiamine 100 mg Tablet] 100 mg PO DAILY tablet 05/31/17 Tiotropium [place] [Spiriva Handihaler 5 Cap/Kit (18 Mcg/Cap)] 1 cap IH DAILY kit 05/31/17 History of Present Illness Admission Date/PCP: 05/10/17 04:19 History of Present Illness: VIVEK MAGUIRE is a 71 year old female who has a history of alcoholism, COPD, diabetes as well as tobacco abuse who presented to emergency room after falling out of bed. The patient when she was found by EMS was found to have hypoxia with oxygen saturation in the 60s on room air. Patient was put on duo nebs and BiPAP. The patient also was confused. The patient reports that her last drink prior to presentation was approximately 3 hours prior to presentation. Patient was admitted for acute hypoxic respiratory failure, acute COPD exacerbation and cellulitis of the right lower extremity. Hospital Course Hospital Course: 71-year-old female has a history of COPD, alcohol abuse and diabetes who presented with hypoxia and acute encephalopathy. The patient's hypoxia was secondary to pneumonia and an acute COPD exacerbation. Patient was treated with Rocephin and Levaquin and eventually had resolution of her pneumonia. Patient has completed antibiotic therapy and has been off of the antibiotics. Her hypoxia has resolved. Patient also was treated with IV steroids and has completed a prednisone taper. While hospitalized she also had acute encephalopathy. This most likely was acute metabolic encephalopathy secondary to chronic alcohol use. She was treated for delirium tremens with IV benzodiazepines. She had a head CT when she first presented because of her confusion but she continued to remain confused because of this a brain MRI was done and it showed no evidence for any acute event. The patient eventually woke up and became alert and oriented 3. She had problems with weakness and was felt that she would benefit from rehab. The patient is alert and oriented 3 and denies any complaints other than she is ready to get started with her rehabilitation. The patient has a long history of alcohol abuse and is counseled that she needs to quit drinking. The patient is alert and oriented 3 currently. Her other medical problems during this hospitalization were stable. Physical Exam Vital Signs: Temp Pulse Resp BP Pulse Ox 98.4 F 100 16 148/61 H 99 05/31/17 08:03 05/31/17 08:03 05/31/17 08:03 05/31/17 08:03 05/31/17 08:03 Intake & Output 05/30/17 05/31/17 06/01/17 06:59 06:59 06:59 Intake Total 1693 576 Balance 1693 576 Weight 80 kg General appearance: PRESENT: no acute distress Eye exam: PRESENT: conjunctiva pink. ABSENT: scleral icterus Neck exam: ABSENT: JVD Respiratory exam: PRESENT: clear to auscultation lauren. ABSENT: rales, rhonchi, wheezes Cardiovascular exam: PRESENT: RRR. ABSENT: diastolic murmur, rubs, systolic murmur Neurological exam: PRESENT: alert, awake, oriented to person, oriented to place , oriented to time, oriented to situation, CN II-XII grossly intact. ABSENT: motor sensory deficit Psychiatric exam: PRESENT: appropriate affect Skin exam: PRESENT: dry, intact, warm. ABSENT: cyanosis, rash Results Laboratory Results: 05/25/17 05:30 05/28/17 06:04 05/10/17 05:15 Creatine Kinase 23 L Impressions: Cervical Spine CT 05/10/17 02:40 IMPRESSION: 1. No acute fracture or subluxation of the cervical spine. This exam was performed according to our departmental dose-optimization program, which includes automated exposure control, adjustment of the mA and/or kV according to patient size and/or use of iterative reconstruction technique. Head CT 05/10/17 02:40 IMPRESSION: 1. No acute intracranial abnormality by CT criteria. This exam was performed according to our departmental dose-optimization program, which includes automated exposure control, adjustment of the mA and/or kV according to patient size and/or use of iterative reconstruction technique. Hip/Pelvis X-Ray 05/10/17 02:42 IMPRESSION: 1. No acute fracture identified. Abdomen Ultrasound 05/18/17 00:00 IMPRESSION: 1. Cholelithiasis with gallbladder wall thickening and possible pericholecystic fluid. This could be seen with acute cholecystitis. 2. In the interpolar right kidney there is a 1.5 cm hypoechoic structure with peripheral echogenic foci of indeterminate etiology. Correlation with contrast-enhanced CT or MRI recommended for definitive characterization. 3. Small amount of perinephric fluid. 4. Small amount of perihepatic ascites. 5. Coarse echogenicity of the liver. This could be seen with cirrhosis. Head MRI 05/19/17 00:00 IMPRESSION: 1. Limited evaluation due to patient motion. 2. No evidence of acute event involving the brain. 3. Atrophy and mild chronic small vessel ischemic disease. 4. Bilateral mastoiditis. EVIDENCE OF ACUTE STROKE: NO. Chest CT 05/22/17 00:00 IMPRESSION: Bilateral free-flowing pleural effusions without walled off empyema. Minimal ascites. Interval since prior CT mild compression fracture of T7. Chest X-Ray 05/25/17 07:00 IMPRESSION: Interval improvement in the appearance of the chest. Transfer Plan - Disposition Transfer Plan: patient will be transferred to [facility] for rehab. - Time Spent with Patient Time spent with patient: Greater than 30 Minutes Qualifiers PATEINT BEING DISCHARGED WITH ANY OF THE FOLLOWING DIAGNOSIS?: No Plan Discharge Plan: Patient to be discharged to [facility] for rehabilitation. Time Spent: Greater than 30 Minutes
== END 2017-05-31 19:45 | DRG 193 ==
LOC: ER 02:24 → EH 04:19 → 3S 05:56
PROVIDERS: ADMIT Family Medicine; ATTEND Family Medicine
DX: J18.9 Pneumonia, unspecified organism (principal); G93.41 Metabolic encephalopathy; J96.21 Acute and chronic respiratory failure with hypoxia; J44.1 Chronic obstructive pulmonary disease with (acute) exacerbation; J44.0 Chronic obstructive pulmonary disease with (acute) lower respiratory infection; L03.116 Cellulitis of left lower limb; J90 Pleural effusion, not elsewhere classified; Z66 Do not resuscitate; K80.20 Calculus of gallbladder without cholecystitis without obstruction; K74.60 Unspecified cirrhosis of liver; D64.9 Anemia, unspecified; E11.65 Type 2 diabetes mellitus with hyperglycemia; E87.6 Hypokalemia; E78.5 Hyperlipidemia, unspecified; I10 Essential (primary) hypertension; I73.9 Peripheral vascular disease, unspecified; F10.20 Alcohol dependence, uncomplicated; G31.84 Mild cognitive impairment of uncertain or unknown etiology; M25.551 Pain in right hip; F32.9 Major depressive disorder, single episode, unspecified; F17.210 Nicotine dependence, cigarettes, uncomplicated; W06.XXXA Fall from bed, initial encounter; Y90.0 Blood alcohol level of less than 20 mg/100 ml; Y93.9 Activity, unspecified; Y92.003 Bedroom of unspecified non-institutional (private) residence as the place of occurrence of the external cause; Z60.2 Problems related to living alone; Z91.14 Patient's other noncompliance with medication regimen; Z79.01 Long term (current) use of anticoagulants; Z79.84 Long term (current) use of oral hypoglycemic drugs; Z79.4 Long term (current) use of insulin; Z79.899 Other long term (current) drug therapy
CPT/HCPCS: 36415; 70450; 70551; 71010; 71020; 71045; 71260; 72125; 76705; 80048; 80053; 80307; 81001; 82140; 82550; 82607; 82803; 82962; 83690; 83735; 84484; 85025; 85027; 87040; 87086; 93005; 93010; 94640; 94660; 94667; 94668; 96360; 99285; A9270-GY; G8978-GP; G8979-GP; G8996-GN; G8997-GN; G8998-GN; J0360; J0696; J1450; J1630; J1650; J1815; J1940; J1956; J2060; J2920; J2930; J3475; J3480; J3490; J7030; J7512; J7620; P9047

== ENCOUNTER 2018-03-24 10:20 | Inpatient (IN) | payer MEDICARE, BC, OTHER ==
--- NOTE | 2018-03-24 10:30 | ER Document Report ---
ED General - General Chief Complaint: Fall Injury Stated Complaint: SHOULDER PAIN Time Seen by Provider: 03/24/18 10:29 Notes: Patient is a 72-year-old female that presents to the emergency department for chief complaint of syncopal episode and shoulder pain. Patient reports that around 6:40 AM she went to the bathroom, and believes that she passed out for a few moments, and she fell and injured her left shoulder. She states she hit her face as well. And cut her right hand. She remembers waking up on the floor. She does not believe it was that long. But she was not able to get up off the floor, she states she yelled out for 2 hours until a neighbor heard her , and then EMS was finally called. At this time she is complaining of pain in her left shoulder, she describes it as a 9 out of 10 and she cannot move it without significant worsening of her pain. Describes as a constant ache Past Medical History: Alcohol abuse and use, hypertension, diabetes mellitus Past Surgical History: Bilateral hip surgery for fractures Social History: Admits cigarette use, and alcohol use, denies illicit drug use Family History: Reviewed and noncontributory for presenting illness Allergies: Reviewed, see documented allergy list. REVIEW OF SYSTEMS: Unless otherwise stated in this report the patient's positive and negative responses for review of systems for constitutional, eyes, ENT, cardiovascular, respiratory, gastrointestinal, neurological, genitourinary, musculoskeletal, and integumentary systems and related systems to the presenting problem are either as stated in the HPI or were not pertinent or were negative for the symptoms and/or complaints related to the presenting medical problem. PHYSICAL EXAMINATION: Vital signs reviewed, nursing noted reviewed. GENERAL: Elderly female, no acute distress HEAD: Atraumatic, normocephalic. EYES: Eyes appear normal, extraocular movements intact, sclera anicteric, conjunctiva are normal. ENT: nares patent, oropharynx clear without exudates. Moist mucous membranes. NECK: Normal range of motion, supple without lymphadenopathy LUNGS: Breath sounds clear to auscultation bilaterally and equal. No wheezes rales or rhonchi. HEART: Regular rate and rhythm without murmurs ABDOMEN: Soft, nontender, normoactive bowel sounds. No rebound, guarding, or rigidity. No masses appreciated. EXTREMITIES: The left shoulder is mildly swollen, and tender to palpate, no obvious or gross deformity, however the patient is unable to move her left arm without any significant pain. She is neurovascular intact distally in all extremities. She is also noted to have a skin tear over the left dorsal aspect of her hand, no deformities, nontender to palpate to this area. NEUROLOGICAL: No focal neurological deficits. Moves all extremities spontaneously Motor and sensory grossly intact on exam. PSYCH: Normal mood, normal affect. SKIN: Warm, Dry, normal turgor, no rashes or lesions noted on exposed skin TRAVEL OUTSIDE OF THE [place] IN LAST 30 DAYS: No - Related Data Allergies/Adverse Reactions: valsartan [From Phylogy] Allergy (Unknown, Verified 05/10/17 02:53) Penicillins Allergy (Verified 05/10/17 02:53) exenatide [From Byetta] Adverse Reaction (Severe, Verified 05/10/17 02:53) Migraine Past Medical History - Social History Smoking Status: Current Every Day Smoker Family History: CAD, Malignancy - Throat cancer, Other - Alzheimer's - Past Medical History Cardiac Medical History: Reports: Hx Hypercholesterolemia, Hx Hypertension, Hx Peripheral Vascular Disease Denies: Hx Atrial Fibrillation, Hx Congestive Heart Failure, Hx Pulmonary Embolism Pulmonary Medical History: Reports: Hx Asthma, Hx Bronchitis, Hx COPD Endocrine Medical History: Reports: Hx Diabetes Mellitus Type 1, Hx Diabetes Mellitus Type 2 Renal/ Medical History: Denies: Hx Peritoneal Dialysis Psychiatric Medical History: Reports: Hx Depression Past Surgical History: Reports: Hx Adenoidectomy, Hx Orthopedic Surgery - Patient has had both left and right hip fracture repairs secondary to falls, Hx Tonsillectomy, Other - Cataract, left great toe amputation - Immunizations Hx Diphtheria, Pertussis, Tetanus Vaccination: Yes Hx Pneumococcal Vaccination: 05/24/11 Physical Exam - Vital signs Vitals: Temp Pulse Resp BP Pulse Ox 97.6 F 92 20 148/73 H 100 03/24/18 10:25 03/24/18 10:25 03/24/18 10:25 03/24/18 10:25 03/24/18 10:25 Course - Re-evaluation Re-evalutation: Patient seen and examined vital signs reviewed. Laboratory data and imaging were ordered as appropriate for the patient's presenting symptoms and complaint, with consideration of any critical or life threatening conditions that may be associated with their obtained history and exam as noted above. Patient was treated with morphine and Zofran for pain and nausea, and given IV fluids She also did have a skin tear, states she was up-to-date with her tetanus vaccination. Results were reviewed when available and demonstrated hemoglobin of 7, patient was not having any melena, denied any dark stools at home as well. This was 3 g lower than her last hemoglobin from May of this year, no concern for active bleeding at this time, patient is hemodynamically stable, but potentially has gastritis, given her alcohol use. She was given Protonix, and type and screen was sent. The patient was re-evaluated and was improved from a pain standpoint, her x- rays were reviewed and did demonstrate a near 1 proximal humerus fracture, I did call Dr. Cardozo with orthopedics, made him aware of this, she was placed in a sling at this time. Her CT of her head and cervical spine were negative. Evaluation was most consistent with syncopal episode, with subsequent fall and left proximal humerus fracture, and anemia, requiring further evaluation and workup. Results were discussed with the patient at this point after careful consideration I feel that that patient should be admitted to the hospital. This was discussed with the patient that it is in the best interest for their care to be admitted for further evaluation and management. Patient agreed with this plan of care. A call was placed to the admitted physician, Dr. Burgess who graciously accepted the patient onto their service. *Note is created using voice recognition software and may contain spelling, syntax or grammatical errors. Laboratory 03/24/18 03/24/18 03/24/18 10:25 10:36 10:36 WBC 11.9 H RBC 3.07 L Hgb 7.0 L Hct 23.4 L MCV 76 L MCH 22.7 L MCHC 29.7 L RDW 18.7 H Plt Count 365 Seg Neutrophils % 76.4 Lymphocytes % 14.1 Monocytes % 7.7 Eosinophils % 1.4 Basophils % 0.4 Absolute Neutrophils 9.1 H Absolute Lymphocytes 1.7 Absolute Monocytes 0.9 Absolute Eosinophils 0.2 Absolute Basophils 0.0 Sodium 142.9 Potassium 5.3 H Chloride 106 Carbon Dioxide 28 Anion Gap 9 BUN 21 H Creatinine 1.22 Est GFR ( Amer) 52 L Est GFR (Non-Af Amer) 43 L Glucose 54 L POC Glucose 62 L Calcium 9.0 Total Bilirubin 0.4 Direct Bilirubin 0.2 Neonat Total Bilirubin Not Reportable Neonat Direct Bilirubin Not Reportable Neonat Indirect Bili Not Reportable AST 21 ALT 18 Alkaline Phosphatase 70 Creatine Kinase 134 Troponin I Total Protein 6.6 Albumin 3.7 Urine Color Urine Appearance Urine pH Ur Specific [place] Urine Protein Urine Glucose (UA) Urine Ketones Urine Blood Urine Nitrite Urine Bilirubin Urine Urobilinogen Ur Leukocyte Esterase Urine WBC (Auto) Urine RBC (Auto) Squamous Epi Cells Auto Urine Mucus (Auto) Urine Ascorbic Acid Serum Alcohol Blood Type Antibody Screen 03/24/18 03/24/18 03/24/18 10:36 10:36 13:00 WBC RBC Hgb Hct MCV MCH MCHC RDW Plt Count Seg Neutrophils % Lymphocytes % Monocytes % Eosinophils % Basophils % Absolute Neutrophils Absolute Lymphocytes Absolute Monocytes Absolute Eosinophils Absolute Basophils Sodium Potassium Chloride Carbon Dioxide Anion Gap BUN Creatinine Est GFR ( Amer) Est GFR (Non-Af Amer) Glucose POC Glucose Calcium Total Bilirubin Direct Bilirubin Neonat Total Bilirubin Neonat Direct Bilirubin Neonat Indirect Bili AST ALT Alkaline Phosphatase Creatine Kinase Troponin I 0.015 Total Protein Albumin Urine Color Urine Appearance Urine pH Ur Specific [place] Urine Protein Urine Glucose (UA) Urine Ketones Urine Blood Urine Nitrite Urine Bilirubin Urine Urobilinogen Ur Leukocyte Esterase Urine WBC (Auto) Urine RBC (Auto) Squamous Epi Cells Auto Urine Mucus (Auto) Urine Ascorbic Acid Serum Alcohol < 10 Blood Type A POSITIVE Antibody Screen NEGATIVE 03/24/18 03/24/18 13:55 15:17 WBC RBC Hgb Hct MCV MCH MCHC RDW Plt Count Seg Neutrophils % Lymphocytes % Monocytes % Eosinophils % Basophils % Absolute Neutrophils Absolute Lymphocytes Absolute Monocytes Absolute Eosinophils Absolute Basophils Sodium Potassium Chloride Carbon Dioxide Anion Gap BUN Creatinine Est GFR ( Amer) Est GFR (Non-Af Amer) Glucose POC Glucose 106 Calcium Total Bilirubin Direct Bilirubin Neonat Total Bilirubin Neonat Direct Bilirubin Neonat Indirect Bili AST ALT Alkaline Phosphatase Creatine Kinase Troponin I Total Protein Albumin Urine Color STRAW Urine Appearance CLEAR Urine pH 8.0 Ur Specific [place] 1.012 Urine Protein 100 H Urine Glucose (UA) NEGATIVE Urine Ketones NEGATIVE Urine Blood NEGATIVE Urine Nitrite NEGATIVE Urine Bilirubin NEGATIVE Urine Urobilinogen NEGATIVE Ur Leukocyte Esterase TRACE H Urine WBC (Auto) 8 Urine RBC (Auto) 0 Squamous Epi Cells Auto 1 Urine Mucus (Auto) RARE Urine Ascorbic Acid NEGATIVE Serum Alcohol Blood Type Antibody Screen Cervical Spine CT 03/24/18 10:47 IMPRESSION: CHRONIC DEGENERATIVE CHANGES. NO ACUTE FINDINGS. Chest X-Ray 03/24/18 10:47 IMPRESSION: CARDIAC ENLARGEMENT. VASCULAR CONGESTION. Head CT 03/24/18 10:47 IMPRESSION: CHRONIC CHANGES OF ATROPHY AND MICROVASCULAR ISCHEMIA. NO ACUTE PROCESS. EVIDENCE OF ACUTE STROKE: NO. Shoulder X-Ray 03/24/18 10:47 IMPRESSION: Neer 1 part surgical neck fracture. - Vital Signs Vital signs: Temp Pulse Resp BP Pulse Ox 97.6 F 92 18 134/74 H 100 03/24/18 10:25 03/24/18 17:12 03/24/18 16:00 03/24/18 12:36 03/24/18 16:00 - Laboratory Result Diagrams: 03/24/18 10:36 03/24/18 10:36 Laboratory results interpreted by me: 03/24/18 03/24/18 03/24/18 10:25 10:36 10:36 WBC 11.9 H RBC 3.07 L Hgb 7.0 L Hct 23.4 L MCV 76 L MCH 22.7 L MCHC 29.7 L RDW 18.7 H Absolute Neutrophils 9.1 H Potassium 5.3 H BUN 21 H Est GFR ( Amer) 52 L Est GFR (Non-Af Amer) 43 L Glucose 54 L POC Glucose 62 L - EKG Interpretation by Me Additional EKG results interpreted by me: EKG demonstrates sinus rhythm with a ventricular rate of 87 bpm, normal axis, normal pulse, no evidence of acute ischemia in this EKG, this is compared with prior EKG from 05/12/2017 without significant change. Discharge - Discharge Clinical Impression: Syncope Qualifiers: Syncope type: unspecified Qualified Code(s): R55 - Syncope and collapse Anemia Qualifiers: Anemia type: unspecified type Qualified Code(s): D64.9 - Anemia, unspecified Closed left humeral fracture Qualifiers: Encounter type: initial encounter Humerus Location: proximal Fracture morphology: unspecified fracture morphology Qualified Code(s): S42.202A - Unspecified fracture of upper end of left humerus, initial encounter for closed fracture Fall Qualifiers: Encounter type: initial encounter Qualified Code(s): W19.XXXA - Unspecified fall, initial encounter Condition: Stable Disposition: ADMITTED INPATIENT Admitting Provider: Hospitalist - DR. BURGESS Unit Admitted: Telemetry
[2018-03-24] MEDS ORDERED: MORPHINE SULFATE 10 MG/ML INJ IV ONE (10:47)
[2018-03-24] MEDS ORDERED: ONDANSETRON HCL INJ/PF 4 MG/2 ML SDV IV ONE (10:48)
[2018-03-24 11:09] LABS: ABSOLUTE EOSINOPHILS # (AUTO) 0.2 10^3/uL (0.0-0.6); ABSOLUTE LYMPHOCYTES (AUTO) 1.7 10^3/uL (0.5-4.7); ABSOLUTE MONOCYTES (AUTO) 0.9 10^3/uL (0.1-1.4); ABSOLUTE NEUT (AUTO) 9.1 10^3/uL (1.7-8.2); BASOPHILS % (AUTO) 0.4 % (0-2); EOSINOPHILS % (AUTO) 1.4 % (0-6); HEMATOCRIT 23.4 % (36.0-47.0); LYMPHOCYTES % (AUTO) 14.1 % (13-45); MEAN CORPUSCULAR HEMOGLOBIN 22.7 pg (27.0-33.4); MEAN CORPUSCULAR HGB CONC 29.7 g/dL (32.0-36.0); MEAN CORPUSCULAR VOLUME 76 fl (80-97); MONOCYTES % (AUTO) 7.7 % (3-13); PLATELET COUNT 365 10^3/uL (150-450); RED BLOOD COUNT 3.07 10^6/uL (3.72-5.28); RED CELL DISTRIBUTION WIDTH 18.7 % (11.5-14.0); SEGMENTED NEUTROPHILS % (AUTO) 76.4 % (42-78); TOTAL CELLS COUNTED % (AUTO) 100 %; WHITE BLOOD COUNT 11.9 10^3/uL (4.0-10.5)
[2018-03-24] MEDS ORDERED: PANTOPRAZOLE SODIUM 40 MG VIAL IV ONE (11:17)
[2018-03-24 11:36] LABS: ALANINE AMINOTRANSFERASE 18 U/L (9-52); ALBUMIN 3.7 g/dL (3.5-5.0); ALKALINE PHOSPHATASE 70 U/L (38-126); ANION GAP 9 (5-19); ASPARTATE AMINO TRANSFERASE 21 U/L (14-36); BILIRUBIN,DIRECT 0.2 mg/dL (0.0-0.4); BILIRUBIN,TOTAL 0.4 mg/dL (0.2-1.3); BLOOD UREA NITROGEN 21 mg/dL (7-20); CARBON DIOXIDE 28 mmol/L (22-30); CHLORIDE 106 mmol/L (98-107); CREATINE KINASE 134 U/L (30-135); GLUCOSE 54 mg/dL (75-110); POTASSIUM 5.3 mmol/L (3.6-5.0); SODIUM 142.9 mmol/L (137-145); TOTAL PROTEIN 6.6 g/dL (6.3-8.2)
--- NOTE | 2018-03-24 11:51 | RADIOLOGY REPORT (SQ) ---
EXAM DESCRIPTION: CT HEAD WITHOUT COMPLETED DATE/TIME: 03/24/2018 11:42 am REASON FOR STUDY: fall, head injury COMPARISON: None. TECHNIQUE: Axial images acquired through the brain without intravenous contrast. Images reviewed wi th bone, brain and subdural windows. Additional sagittal and coronal reconstructions were generated. Images stored on PACS. All CT scanners at this facility use dose modulation, iterative reconstruction, and/or weight based d osing when appropriate to reduce radiation dose to as low as reasonably achievable (ALARA). [facility]: Dose Right [facility]: CareDose [facility]: Dose Right [facility]: Teradose 4D [facility]: Time Warden RADIATION DOSE: CT Rad equipment meets quality standard of care and radiation dose reduction techniq ues were employed. CTDIvol: 53.2 mGy. DLP: 1017 mGy-cm.mGy. LIMITATIONS: None. FINDINGS: VENTRICLES: Prominent. CEREBRUM: No masses. No hemorrhage. No midline shift. Areas of low density in the white matter mos t likely due to chronic micro-vascular ischemic change. No evidence for acute infarction. CEREBELLUM: No masses. No hemorrhage. No alteration of density. No evidence for acute infarction. EXTRAAXIAL SPACES: Age-related involutional change. No fluid collections. No masses. ORBITS AND GLOBE: No intra- or extraconal masses. Normal contour of globe without masses. CALVARIUM: No fracture. PARANASAL SINUSES: No fluid or mucosal thickening. SOFT TISSUES: No mass or hematoma. OTHER: No other significant finding. IMPRESSION: CHRONIC CHANGES OF ATROPHY AND MICROVASCULAR ISCHEMIA. NO ACUTE PROCESS. EVIDENCE OF ACUTE STROKE: NO. TECHNICAL DOCUMENTATION: JOB ID: [id number] Quality ID # [id number]: Final reports with documentation of one or more dose reduction techniques (e.g., Au tomated exposure control, adjustment of the mA and/or kV according to patient size, use of iterative reconstruction technique) 2010 [employer]- All Rights Reserved Reading location - IP/workstation name: [email or web address]
--- NOTE | 2018-03-24 11:52 | RADIOLOGY REPORT (SQ) ---
EXAM DESCRIPTION: CT CERVICAL SPINE WITHOUT COMPLETED DATE/TIME: 03/24/2018 11:42 am REASON FOR STUDY: fall, head injury COMPARISON: None. TECHNIQUE: Axial images acquired through the cervical spine without intravenous contrast. Images re viewed with lung, soft tissue and bone windows. Reconstructed coronal and sagittal MPR images review ed. Images stored on PACS. All CT scanners at this facility use dose modulation, iterative reconstruction, and/or weight based d osing when appropriate to reduce radiation dose to as low as reasonably achievable (ALARA). [facility]: Dose Right [facility]: CareDose [facility]: Dose Right [facility]: Teradose 4D [facility]: LOANZ RADIATION DOSE: CT Rad equipment meets quality standard of care and radiation dose reduction techniq ues were employed. CTDIvol: 20.5 mGy. DLP: 412 mGy-cm. mGy. LIMITATIONS: None. FINDINGS: ALIGNMENT: Anatomic. MINERALIZATION: Normal. VERTEBRAL BODIES: No fractures or dislocation. DISCS: Multilevel disc space narrowing with osteophytes. FACETS, LATERAL MASSES, POSTERIOR ELEMENTS: Facet arthropathy. No fractures. No dislocation. No ac nez perce findings. HARDWARE: None in the spine. VISUALIZED RIBS: No fractures. LUNG APICES AND SOFT TISSUES: No significant or acute findings. OTHER: No other significant finding. IMPRESSION: CHRONIC DEGENERATIVE CHANGES. NO ACUTE FINDINGS. TECHNICAL DOCUMENTATION: JOB ID: [id number] Quality ID # [id number]: Final reports with documentation of one or more dose reduction techniques (e.g., Au tomated exposure control, adjustment of the mA and/or kV according to patient size, use of iterative reconstruction technique) 2010 [email or web address]- All Rights Reserved Reading location - IP/workstation name: [email or web address]
--- NOTE | 2018-03-24 12:25 | EKG REPORT ---
SEVERITY:- NORMAL ECG - SINUS RHYTHM : Confirmed by: Barbi Zurita MD 24-Mar-2018 12:24:49
--- NOTE | 2018-03-24 12:55 | RADIOLOGY REPORT (SQ) ---
EXAM DESCRIPTION: SHOULDER LEFT 2 OR MORE VIEWS COMPLETED DATE/TIME: 03/24/2018 12:16 pm REASON FOR STUDY: left shoulder pain COMPARISON: None. NUMBER OF VIEWS: Three views. TECHNIQUE: Internal rotation, external rotation, and Y view images acquired of the left shoulder. LIMITATIONS: None. FINDINGS: MINERALIZATION: Osteopenia. BONES: Comminuted surgical neck fracture with mild impaction. Fracture line extends to the greater t uberosity. Less than 1 cm displacement. JOINTS: No dislocation. VISUALIZED LUNGS AND RIBS: See separate report. SOFT TISSUES: No radiopaque foreign body. OTHER: No other significant finding. IMPRESSION: Neer 1 part surgical neck fracture. TECHNICAL DOCUMENTATION: JOB ID: [id number] [employer]- All Rights Reserved Reading location - IP/workstation name: [email or web address]
--- NOTE | 2018-03-24 12:57 | RADIOLOGY REPORT (SQ) ---
EXAM DESCRIPTION: CHEST 2 VIEWS COMPLETED DATE/TIME: 03/24/2018 12:16 pm REASON FOR STUDY: fall COMPARISON: 05/10/2017 NUMBER OF VIEWS: Two views. TECHNIQUE: Frontal and lateral radiographic views of the chest acquired. LIMITATIONS: None. FINDINGS: LUNGS AND PLEURA: Chronic interstitial changes. No obvious superimposed pneumonia. No ef fusions. MEDIASTINUM AND HILAR STRUCTURES: No masses or contour abnormality. HEART AND VASCULAR STRUCTURES: Cardiac enlargement. Vascular congestion. BONES: Left humeral fracture described under separate report. HARDWARE: None in the chest. OTHER: No other significant finding. IMPRESSION: CARDIAC ENLARGEMENT. VASCULAR CONGESTION. TECHNICAL DOCUMENTATION: JOB ID: [id number] [employer]- All Rights Reserved Reading location - IP/workstation name: [email or web address]
--- NOTE | 2018-03-24 15:07 | PDOC H&P ---
History of Present Illness Admission Date/PCP: 03/24/18 14:26 Patient complains of: Fall, left shoulder pain History of Present Illness: VIVEK MAGUIRE is a 72 year old female past medical history of hypertension type 2 diabetes mellitus, right diabetic foot status post first metatarsal amputation, COPD [current every other day smoker, not on home oxygen] , PVD, restless leg syndrome, hyperlipidemia, recurrent falls, alcohol abuse, plaque psoriasis, chronic bilateral lower extremity ulcers [states she has been apparently evaluated by a lithographic platemaker but does not remember the name of the condition that she is suffering from] . She moved [place] from [place] 4 years ago currently retired and living independently by herself all close relatives who has a close friend here at [place]. Patient was brought to EMS after fall. Patient is a daily EtOH drinker. Had a scotch last night to bed, woke up in the morning went to the restroom, when getting off of commode fell on the floor. Patient does not remember any preceding events prior to the fall but he states that she remember falling and landing on the floor did not lose consciousness however when trying to get up she felt severe pain in her left shoulder as a result remained on the floor for almost 2 hours, she kept yelling for help until a neighbor heard her and EMS was called. She also has an unsteady gait due to chronic plaque psoriasis, nonhealing noninfectious multiple ulcers, left metatarsal amputation due to diabetes complication which may have contributed to her recurrent falls. Patient denies any history of seizure, CVA, arrhythmia. She is complaining of severe left shoulder pain, facial pain, bilateral lower extremity nonhealing ulcers which are itchy and painful. She denies any fever, chills, chest pain, shortness of breath, nausea, vomiting, diarrhea, constipation or any urinary symptoms. She does not have any family members, states all of them have , in case of emergency she wants us to call her best friend. Number is available on the chart. Past Medical History Cardiac Medical History: Reports: Hyperlipidema, Hypertension, Peripheral Vascular Disease Denies: Atrial Fibrillation, Congestive Heart Failure, Pulmonary Embolism Pulmonary Medical History: Reports: Asthma, Bronchitis, Chronic Obstructive Pulmonary Disease (COPD) Endocrine Medical History: Reports: Diabetes Mellitus Type 1, Diabetes Mellitus Type 2 Psychiatric Medical History: Reports: Depression Hematology: Denies: Bleeding Tendencies Past Surgical History Past Surgical History: Reports: Adenoidectomy, Orthopedic Surgery - Patient has had both left and right hip fracture repairs secondary to falls, Tonsillectomy, Other - Cataract, left great toe amputation Social History Smoking Status: Current Every Day Smoker Frequency of Alcohol Use: Heavy Hx Recreational Drug Use: No Drugs: None Hx Prescription Drug Abuse: No Family History Family History: CAD, Malignancy - Throat cancer, Other - Alzheimer's Parental Family History Reviewed: Yes Children Family History Reviewed: Yes Sibling(s) Family History Reviewed.: Yes Medication/Allergy Home Medications: Albuterol Sulfate [Proair HFA] 1 puff IH Q4HP PRN 03/24/18 Aspirin/Acetaminophen/Caffeine [Excedrin Extra Strength Caplet] 2 tab PO Q6HP PRN 03/24/18 Atorvastatin Calcium [Lipitor 10 mg Tablet] 10 mg PO QHS 03/24/18 Cholecalciferol (Vitamin D3) [Vitamin D3 5000 unit Capsule] 5,000 unit PO DAILY 03/24/18 Diazepam [Valium 5 mg Tablet] 5 mg PO DAILYP PRN 03/24/18 Diltiazem HCl [Cartia Xt] 240 mg PO DAILY 03/24/18 Doxycycline Hyclate 50 mg PO DAILY 03/24/18 Etanercept [Enbrel] 50 mg SQ MOWE 03/24/18 Folic Acid [Folvite 1 mg Tablet] 1 mg PO DAILY 03/24/18 Hydralazine HCl [Apresoline 50 mg Tablet] 50 mg PO Q8 03/24/18 Insulin Glargine,Hum.rec.anlog [Lantus Solostar] 30 units SQ QAM 03/24/18 Insulin Glargine,Hum.rec.anlog [Lantus Solostar] 40 units SQ QPM 03/24/18 Metformin HCl [Glucophage XR 500 mg Tablet] 1,000 mg PO BID 03/24/18 Pramipexole Di-HCl [Mirapex ER] 3.75 mg PO QPM 03/24/18 Pregabalin [Lyrica 100 mg Capsule] 100 mg PO QPM 03/24/18 Spironolactone [Aldactone 100 mg Tablet] 100 mg PO DAILY 03/24/18 Tiotropium [place] [Spiriva Handihaler 18 mcg/dose (30 Dose)] 18 mcg IH DAILY Venlafaxine HCl [Effexor Xr] 150 mg PO DAILY 03/24/18 Allergies/Adverse Reactions: valsartan [From Diovan] Allergy (Unknown, Verified 05/10/17 02:53) Penicillins Allergy (Verified 05/10/17 02:53) exenatide [From Byetta] Adverse Reaction (Severe, Verified 05/10/17 02:53) Migraine Review of Systems Review of Systems: As per HPI Physical Exam Vital Signs: Temp Pulse Resp BP Pulse Ox 97.6 F 92 12 134/74 H 100 03/24/18 10:25 03/24/18 10:25 03/24/18 14:00 03/24/18 12:36 03/24/18 14:00 General appearance: PRESENT: cooperative, disheveled, mild distress, obese Head exam: PRESENT: atraumatic, normocephalic Eye exam: PRESENT: conjunctiva pink, EOMI, PERRLA. ABSENT: scleral icterus Ear exam: PRESENT: normal external ear exam Neck exam: ABSENT: carotid bruit, JVD, lymphadenopathy, thyromegaly Respiratory exam: PRESENT: clear to auscultation lauren. ABSENT: rales, rhonchi, wheezes Cardiovascular exam: PRESENT: RRR. ABSENT: diastolic murmur, rubs, systolic murmur Vascular exam: PRESENT: normal capillary refill GI/Abdominal exam: PRESENT: distended, normal bowel sounds, soft. ABSENT: guarding, mass, organolmegaly, rebound, tenderness Extremities exam: PRESENT: full ROM. ABSENT: calf tenderness, clubbing, pedal edema Musculoskeletal exam: PRESENT: other - Right foot metatarsal amputation. Neurological exam: PRESENT: alert, awake, oriented to person, oriented to place , oriented to time, oriented to situation, CN II-XII grossly intact. ABSENT: motor sensory deficit Psychiatric exam: PRESENT: appropriate affect, normal mood. ABSENT: homicidal ideation, suicidal ideation Skin exam: PRESENT: other - Bilateral lower extremity below-knee multiple shallow non-erythematous ulcers no sign of any active infection there is mild swelling of the both bilateral lower extremities. Bilateral plaque psoriasis worse on bilateral feet especially on the left side. Results Impressions: Cervical Spine CT 03/24/18 10:47 IMPRESSION: CHRONIC DEGENERATIVE CHANGES. NO ACUTE FINDINGS. Chest X-Ray 03/24/18 10:47 IMPRESSION: CARDIAC ENLARGEMENT. VASCULAR CONGESTION. Head CT 03/24/18 10:47 IMPRESSION: CHRONIC CHANGES OF ATROPHY AND MICROVASCULAR ISCHEMIA. NO ACUTE PROCESS. EVIDENCE OF ACUTE STROKE: NO. Shoulder X-Ray 03/24/18 10:47 IMPRESSION: Neer 1 part surgical neck fracture. Assessment & Plan - Diagnosis (1) Pre-syncope Is this a current diagnosis for this admission?: Yes Plan: Multifactorial. Possibly vasovagal, alcohol intoxication, dehydration and abnormal gait due to right metatarsal amputation for diabetic complication. Patient did not lose consciousness. Intact neurological examination. CT head and neck negative for any acute trauma. Volume resuscitation, monitor vitals, admit to telemetry, seizure, fall, aspiration precautions. (2) Diabetes mellitus Is this a current diagnosis for this admission?: Yes Plan: Restart Lantus, Accu-Chek, sliding scale, pre-meal insulin, diabetic diet. Adjust insulin as needed. (3) Plaque psoriasis Is this a current diagnosis for this admission?: No Plan: In remission. Restart Enbrel. Outpatient rheumatology follow-up. (4) Hyperkalemia Is this a current diagnosis for this admission?: Yes Plan: Likely due to rhabdomyolysis caused by recent fall. Patient was laying in the floor for more than 2 hours post fall. IV hydration. No EKG changes. Follow- up BMP. (5) History of COPD Is this a current diagnosis for this admission?: No Plan: Not on exacerbation. DuoNeb as needed, long-acting beta agonist, long-acting anticholinergics. (6) ETOH abuse Is this a current diagnosis for this admission?: Yes Plan: DT prophylaxis. Supplemental folic acid and thiamine. (7) Closed left humeral fracture Is this a current diagnosis for this admission?: Yes Plan: Due to recent fall. Supportive care. Orthopedic surgeons consulted (8) Hypertension Qualifiers: Hypertension type: essential hypertension Qualified Code(s): I10 - Essential (primary) hypertension Is this a current diagnosis for this admission?: Yes Plan: Restart home meds. Monitor vitals. Adjust meds as needed. (9) Restless leg syndrome Is this a current diagnosis for this admission?: Yes Plan: Restart home meds. (10) Tobacco abuse Is this a current diagnosis for this admission?: Yes Plan: Nicotine patch. Patient was strongly advised about quitting smoking. (11) Anemia Is this a current diagnosis for this admission?: Yes Plan: Chronic. Denies any hematemesis, hemoptysis, vaginal bleeding, melena, hematochezia. Will obtain iron workup. Follow-up H&H. If drops under 7 or actively bleeding transfuse. Back positive for consult surgery for possible upper and lower endoscopy. (12) Depression Qualifiers: Depression Type: unspecified Qualified Code(s): F32.9 - Major depressive disorder, single episode, unspecified Is this a current diagnosis for this admission?: Yes Plan: Denies any homicidal or suicidal ideation. Restart home meds.
[2018-03-24] MEDS ORDERED: ACETAMINOPHEN PO PRN (15:22)
[2018-03-24] MEDS ORDERED: [UNRECOGNIZED DRUG - OTHER] PO PRN (15:22)
[2018-03-24] MEDS ORDERED: ASPIRIN PO PRN (15:22)
[2018-03-24] MEDS ORDERED: IPRATROPIUM/ALBUTEROL 0.5-2.5 MG/3 ML AMPUL NEB PRN (15:24)
[2018-03-24] MEDS ORDERED: NICOTINE 14 MG/24 HR PATCH.TD24 TD PRN (15:32)
[2018-03-24 16:21] LABS: APPEARANCE,URINE CLEAR; BILIRUBIN,URINE NEGATIVE (NEGATIVE); COLOR,URINE STRAW; GLUCOSE, URINE NEGATIVE (NEGATIVE); KETONES,URINE NEGATIVE (NEGATIVE); LEUKOCYTE ESTERASE,URINE TRACE (NEGATIVE); NITRITE,URINE NEGATIVE (NEGATIVE); PROTEIN,URINE 100 mg/dL (NEGATIVE); URINE SPECIFIC GRAVITY 1.012; UROBILINOGEN,URINE NEGATIVE mg/dL (<2.0)
[2018-03-24] MEDS: LANSOPRAZOLE 15 MG TAB.RAP.DR PO SCH (17:48)
[2018-03-24] MEDS: NORMAL SALINE 1000 ML 1,000 ML IV PRN (17:48)
[2018-03-24] MEDS: LEVOFLOXACIN 750 MG/D5W RTU 750 MG/150 ML RTUPB IV SCH ×2 (17:52→18:52)
[2018-03-24] MEDS ORDERED: PRAMIPEXOLE DI HCL PO SCH (18:00)
[2018-03-24] MEDS ORDERED: PREGABALIN 100 MG CAPSULE PO SCH (18:00)
[2018-03-24] MEDS: ATORVASTATIN CALCIUM 10 MG TABLET PO SCH (21:59)
[2018-03-24] MEDS: GUAIFENESIN 600 MG TABLET.SA PO SCH (21:59)
[2018-03-24] MEDS: SALMETEROL XINAFOATE DISKUS 50 MCG/1 DOSE 28 DOSE IH SCH (22:00)
[2018-03-24] MEDS: LORAZEPAM INJ 2 MG/1 ML VIAL IV PRN (22:00)
[2018-03-24] MEDS: HEPARIN SOD (PORCINE) 5,000 UNIT/ML 1 ML SYRINGE SUBCUT SCH (22:00)
[2018-03-24] MEDS: ACETAMINOPHEN 325 MG TABLET PO PRN (22:00)
[2018-03-25] MEDS ORDERED: PREGABALIN 100 MG CAPSULE PO ONE (00:15)
[2018-03-25] MEDS: OXYCODONE-ACETAMINOPHEN 5-325 MG TABLET PO PRN ×3 (01:16→22:34)
[2018-03-25] MEDS: LORAZEPAM INJ 2 MG/1 ML VIAL IV PRN (02:31)
[2018-03-25] MEDS: HEPARIN SOD (PORCINE) 5,000 UNIT/ML 1 ML SYRINGE SUBCUT SCH ×3 (07:05→22:33)
[2018-03-25] MEDS: LANSOPRAZOLE 15 MG TAB.RAP.DR PO SCH ×2 (07:05→18:13)
[2018-03-25 07:37] LABS: ABSOLUTE BASOPHILS # (AUTO) 0.1 10^3/uL (0.0-0.2); ABSOLUTE EOSINOPHILS # (AUTO) 0.2 10^3/uL (0.0-0.6); ABSOLUTE LYMPHOCYTES (AUTO) 2.2 10^3/uL (0.5-4.7); ABSOLUTE MONOCYTES (AUTO) 0.9 10^3/uL (0.1-1.4); ABSOLUTE NEUT (AUTO) 7.4 10^3/uL (1.7-8.2); BASOPHILS % (AUTO) 0.8 % (0-2); EOSINOPHILS % (AUTO) 1.9 % (0-6); HEMATOCRIT 22.3 % (36.0-47.0); LYMPHOCYTES % (AUTO) 20.3 % (13-45); MEAN CORPUSCULAR HEMOGLOBIN 22.9 pg (27.0-33.4); MEAN CORPUSCULAR HGB CONC 29.6 g/dL (32.0-36.0); MEAN CORPUSCULAR VOLUME 77 fl (80-97); MONOCYTES % (AUTO) 8.2 % (3-13); PLATELET COUNT 322 10^3/uL (150-450); RED BLOOD COUNT 2.89 10^6/uL (3.72-5.28); RED CELL DISTRIBUTION WIDTH 18.9 % (11.5-14.0); SEGMENTED NEUTROPHILS % (AUTO) 68.8 % (42-78); TOTAL CELLS COUNTED % (AUTO) 100 %; WHITE BLOOD COUNT 10.8 10^3/uL (4.0-10.5)
[2018-03-25 07:40] LABS: HEMOGLOBIN 6.6 g/dL (12.0-15.5)
[2018-03-25 07:50] LABS: ALANINE AMINOTRANSFERASE 18 U/L (9-52); ALBUMIN 3.1 g/dL (3.5-5.0); ALKALINE PHOSPHATASE 68 U/L (38-126); ANION GAP 10 (5-19); ASPARTATE AMINO TRANSFERASE 16 U/L (14-36); BILIRUBIN,DIRECT 0.1 mg/dL (0.0-0.4); BILIRUBIN,TOTAL 0.4 mg/dL (0.2-1.3); BLOOD UREA NITROGEN 18 mg/dL (7-20); CALCIUM 8.4 mg/dL (8.4-10.2); CARBON DIOXIDE 25 mmol/L (22-30); CHLORIDE 107 mmol/L (98-107); GLUCOSE 89 mg/dL (75-110); POTASSIUM 5.5 mmol/L (3.6-5.0); SODIUM 142.2 mmol/L (137-145); TOTAL PROTEIN 5.9 g/dL (6.3-8.2)
[2018-03-25] MEDS ORDERED: NORMAL SALINE 250 ML IV PRN (08:03)
[2018-03-25 08:04] LABS: HYPOCHROMASIA 1+; PLATELET COMMENT ADEQUATE; POIKILOCYTOSIS 1+; STOMATOCYTES 1+; TEAR DROP CELLS 1+
[2018-03-25] MEDS ORDERED: INSULIN REG, HUMAN 100 UNIT/ML 3 ML VIAL (PYX) IV ONE (08:15)
[2018-03-25] MEDS ORDERED: ALBUTEROL SULFATE 0.083% NEB 2.5 MG/3 ML AMPUL NEB ONE (08:15)
[2018-03-25] MEDS ORDERED: DEXTROSE 50%-WATER 25 GM/50 ML DISP.SYRIN IV ONE (08:15)
--- NOTE | 2018-03-25 08:32 | PDOC CONSULTATION ---
Consultation Consult Date: 03/25/18 Consult reason:: Left humerus lesion History of Present Illness Admission Date/PCP: 03/24/18 14:26 History of Present Illness: VIVEK MAGUIRE is a 72 year old female Is a 72-year-old white female known to me from previous musculoskeletal issues who recently fell with a loss of consciousness and sustained a left proximal humerus fracture. She was evaluated in emergency room and placed in a shoulder immobilizer. Orthopedics is now consulted for fracture management. Past Medical History Cardiac Medical History: Reports: Hyperlipidema, Hypertension, Peripheral Vascular Disease Denies: Atrial Fibrillation, Congestive Heart Failure, Pulmonary Embolism Pulmonary Medical History: Reports: Asthma, Bronchitis, Chronic Obstructive Pulmonary Disease (COPD) Endocrine Medical History: Reports: Diabetes Mellitus Type 1, Diabetes Mellitus Type 2 Psychiatric Medical History: Reports: Depression Hematology: Denies: Bleeding Tendencies Past Surgical History Past Surgical History: Reports: Adenoidectomy, Orthopedic Surgery - Patient has had both left and right hip fracture repairs secondary to falls, Tonsillectomy, Other - Cataract, left great toe amputation Social History Information Source: Patient, Dr. Reyes, [facility] Records Smoking Status: Current Every Day Smoker Frequency of Alcohol Use: Heavy Hx Recreational Drug Use: No Drugs: None Hx Prescription Drug Abuse: No - Advance Directive Resuscitation Status: Full Code Family History Family History: CAD, Malignancy - Throat cancer, Other - Alzheimer's Parental Family History Reviewed: No Children Family History Reviewed: No Sibling(s) Family History Reviewed.: No Medication/Allergy Home Medications: Albuterol Sulfate [Proair HFA] 1 puff IH Q4HP PRN 03/24/18 Aspirin/Acetaminophen/Caffeine [Excedrin Extra Strength Caplet] 2 tab PO Q6HP PRN 03/24/18 Atorvastatin Calcium [Lipitor 10 mg Tablet] 10 mg PO QHS 03/24/18 Cholecalciferol (Vitamin D3) [Vitamin D3 5000 unit Capsule] 5,000 unit PO DAILY 03/24/18 Diazepam [Valium 5 mg Tablet] 5 mg PO DAILYP PRN 03/24/18 Diltiazem HCl [Cartia Xt] 240 mg PO DAILY 03/24/18 Doxycycline Hyclate 50 mg PO DAILY 03/24/18 Etanercept [Enbrel] 50 mg SQ MOWE 03/24/18 Folic Acid [Folvite 1 mg Tablet] 1 mg PO DAILY 03/24/18 Hydralazine HCl [Apresoline 50 mg Tablet] 50 mg PO Q8 03/24/18 Insulin Glargine,Hum.rec.anlog [Lantus Solostar] 30 units SQ QAM 03/24/18 Insulin Glargine,Hum.rec.anlog [Lantus Solostar] 40 units SQ QPM 03/24/18 Metformin HCl [Glucophage XR 500 mg Tablet] 1,000 mg PO BID 03/24/18 Pramipexole Di-HCl [Mirapex ER] 3.75 mg PO QPM 03/24/18 Pregabalin [Lyrica 100 mg Capsule] 100 mg PO QPM 03/24/18 Spironolactone [Aldactone 100 mg Tablet] 100 mg PO DAILY 03/24/18 Tiotropium [place] [Spiriva Handihaler 18 mcg/dose (30 Dose)] 18 mcg IH DAILY Venlafaxine HCl [Effexor Xr] 150 mg PO DAILY 03/24/18 Allergies/Adverse Reactions: valsartan [From Diovan] Allergy (Unknown, Verified 05/10/17 02:53) Penicillins Allergy (Verified 05/10/17 02:53) exenatide [From Byetta] Adverse Reaction (Severe, Verified 05/10/17 02:53) Migraine Review of Systems ROS unobtainable: Due to mental status Physical Exam Vital Signs: Temp Pulse Resp BP Pulse Ox 37.2 C 91 20 118/60 96 03/25/18 03:13 03/25/18 07:00 03/25/18 03:13 03/25/18 03:13 03/25/18 03:13 Intake & Output 03/24/18 03/25/18 03/26/18 06:59 06:59 06:59 Intake Total 150 Output Total 1025 Balance -875 Weight 72 kg Physical Exam: Somnolent if not obtunded middle-aged white female lying in hospital bed. She is very difficult to arouse. General appearance: PRESENT: no acute distress Head exam: PRESENT: normocephalic Respiratory exam: PRESENT: unlabored Cardiovascular exam: PRESENT: RRR Pulses: PRESENT: normal radial pulses Vascular exam: PRESENT: normal capillary refill Extremities exam: PRESENT: other - Left upper extremity immobilized in a shoulder immobilizer. There is swelling and ecchymosis about the proximal humerus. Tenderness probably but the patient's mental status precludes accurate assessment of this as well as distal neurologic status. There is clearly brisk capillary refill to each of the digits. Results Laboratory Results: 03/25/18 07:15 03/25/18 07:15 03/24/18 03/25/18 03/25/18 15:17 07:15 07:15 WBC 10.8 H RBC 2.89 L Hgb 6.6 L Hct 22.3 L MCV 77 L MCH 22.9 L MCHC 29.6 L RDW 18.9 H Plt Count 322 Seg Neutrophils % 68.8 Lymphocytes % 20.3 Monocytes % 8.2 Eosinophils % 1.9 Basophils % 0.8 Absolute Neutrophils 7.4 Absolute Lymphocytes 2.2 Absolute Monocytes 0.9 Absolute Eosinophils 0.2 Absolute Basophils 0.1 Sodium 142.2 Potassium 5.5 H Chloride 107 Carbon Dioxide 25 Anion Gap 10 BUN 18 Creatinine 1.37 H Est GFR ( Amer) 46 L Est GFR (Non-Af Amer) 38 L Glucose 89 Calcium 8.4 Total Bilirubin 0.4 AST 16 ALT 18 Alkaline Phosphatase 68 Total Protein 5.9 L Albumin 3.1 L Urine Color STRAW Urine Appearance CLEAR Urine pH 8.0 Ur Specific [place] 1.012 Urine Protein 100 H Urine Glucose (UA) NEGATIVE Urine Ketones NEGATIVE Urine Blood NEGATIVE Urine Nitrite NEGATIVE Ur Leukocyte Esterase TRACE H Urine WBC (Auto) 8 Urine RBC (Auto) 0 Impressions: Cervical Spine CT 03/24/18 10:47 IMPRESSION: CHRONIC DEGENERATIVE CHANGES. NO ACUTE FINDINGS. Chest X-Ray 03/24/18 10:47 IMPRESSION: CARDIAC ENLARGEMENT. VASCULAR CONGESTION. Head CT 03/24/18 10:47 IMPRESSION: CHRONIC CHANGES OF ATROPHY AND MICROVASCULAR ISCHEMIA. NO ACUTE PROCESS. EVIDENCE OF ACUTE STROKE: NO. Shoulder X-Ray 03/24/18 10:47 IMPRESSION: Neer 1 part surgical neck fracture. Status: Imported from PACS Assessment & Plan - Diagnosis (1) Closed left humeral fracture Qualifiers: Encounter type: initial encounter Humerus Location: proximal Fracture morphology: unspecified fracture morphology Qualified Code(s): S42.202A - Unspecified fracture of upper end of left humerus, initial encounter for closed fracture Is this a current diagnosis for this admission?: Yes Plan: 72-year-old white female with a valgus impacted left surgical neck fracture of the humerus. I think this is something that can be treated nonoperatively. The patient be maintained in the sling for 3-4 weeks and then placed into a Pandey fracture brace. - Time Time Spent: 50 to 70 Minutes Anticipated discharge: SNF Within: Other
[2018-03-25] MEDS ORDERED: CALCIUM GLUCONATE 2,000 MG in DEXTROSE 5%-WATER 100 ML IV ONE (09:00)
[2018-03-25] MEDS ORDERED: (PENDING PHARMACY ID) (Doxycycline Hyclate [Doxycycline Hyclate] 50 MG) PO SCH (10:00)
[2018-03-25] MEDS: VENLAFAXINE HCL 75 MG CAP.SR.24H PO SCH (10:02)
[2018-03-25] MEDS: THIAMINE HCL 100 MG TABLET PO SCH (10:03)
[2018-03-25] MEDS: GUAIFENESIN 600 MG TABLET.SA PO SCH ×2 (10:03→22:35)
[2018-03-25] MEDS: SALMETEROL XINAFOATE DISKUS 50 MCG/1 DOSE 28 DOSE IH SCH ×2 (10:05→22:33)
[2018-03-25] MEDS: TIOTROPIUM BROMIDE DPI 5 CAP/KIT (18 MCG/CAP) IH SCH (10:05)
[2018-03-25] MEDS: FOLIC ACID 1 MG TABLET PO SCH (10:09)
[2018-03-25] MEDS: NORMAL SALINE 1000 ML 1,000 ML IV PRN ×2 (10:09→18:14)
[2018-03-25] MEDS ORDERED: GLUCAGON,HUMAN RECOMB 1 MG INJ IM PRN (13:24)
[2018-03-25] MEDS ORDERED: DEXTROSE 50%-WATER SYRINGE 25 GM/50 ML DOSE IV PRN (13:24)
[2018-03-25] MEDS ORDERED: DEXTROSE 40% GEL 15 GM TUBE PO PRN (13:24)
[2018-03-25] MEDS ORDERED: DEXTROSE 50%-WATER SYRINGE 12.5 GM/25 ML DOSE IV PRN (13:24)
[2018-03-25] MEDS ORDERED: DEXTROSE 40% GEL 15 GM TUBE X 2 PO PRN (13:24)
--- NOTE | 2018-03-25 14:09 | PDOC PROGRESS REPORT ---
Subjective Progress Note for:: 03/25/18 Subjective:: VIVEK MAGUIRE is a 72 year old female past medical history of hypertension type 2 diabetes mellitus, right diabetic foot status post first metatarsal amputation, COPD [current every other day smoker, not on home oxygen] , PVD, restless leg syndrome, hyperlipidemia, recurrent falls, alcohol abuse, plaque psoriasis, chronic bilateral lower extremity ulcers [states she has been apparently evaluated by a conche loader and unloader but does not remember the name of the condition that she is suffering from] . She moved [place] from [place] 4 years ago currently retired and living independently by herself all close relatives who has a close friend here at [place]. Patient was brought to EMS after fall. Patient is a daily EtOH drinker. Had a scotch last night to bed, woke up in the morning went to the restroom, when getting off of commode fell on the floor. Patient does not remember any preceding events prior to the fall but he states that she remember falling and landing on the floor did not lose consciousness however when trying to get up she felt severe pain in her left shoulder as a result remained on the floor for almost 2 hours, she kept yelling for help until a neighbor heard her and EMS was called. She also has an unsteady gait due to chronic plaque psoriasis, nonhealing noninfectious multiple ulcers, left metatarsal amputation due to diabetes complication which may have contributed to her recurrent falls. Patient denies any history of seizure, CVA, arrhythmia. She is complaining of severe left shoulder pain, facial pain, bilateral lower extremity nonhealing ulcers which are itchy and painful. She denies any fever, chills, chest pain, shortness of breath, nausea, vomiting, diarrhea, constipation or any urinary symptoms. She does not have any family members, states all of them have , in case of emergency she wants us to call her best friend. Number is available on the chart. 03/25/2018. No acute events overnight. On my encounter in the morning patient was sitting in bed having her breakfast however very sleepy due to Ativan she received overnight. Was able to visit her second time around 1 PM patient is still sleepy but arousable and cooperative. Patient is said that her left shoulder pain is improving and also she has not slept for several nights and she likes to keep sleeping. She denies any fever, chills, nausea, vomiting, diarrhea, constipation. She is easily arousable but falls asleep readily. Reason For Visit: PRESYNCOPE, LEFT SHOULDER FRACTURE Physical Exam Vital Signs: Temp Pulse Resp BP Pulse Ox 98.3 F 111 H 18 118/54 L 98 03/25/18 12:10 03/25/18 13:24 03/25/18 13:24 03/25/18 13:24 03/25/18 13:24 Intake & Output 03/24/18 03/25/18 03/26/18 06:59 06:59 06:59 Intake Total 1150 0 Output Total 1025 Balance 125 0 Weight 72 kg General appearance: PRESENT: no acute distress Respiratory exam: PRESENT: clear to auscultation lauren. ABSENT: rales, rhonchi, wheezes Cardiovascular exam: PRESENT: RRR. ABSENT: diastolic murmur, rubs, systolic murmur Neurological exam: PRESENT: oriented to person, oriented to place, oriented to time, other - Sleepy Results Laboratory Results: 03/25/18 07:15 03/25/18 07:15 03/24/18 03/25/18 03/25/18 15:17 07:15 07:15 WBC 10.8 H RBC 2.89 L Hgb 6.6 L Hct 22.3 L MCV 77 L MCH 22.9 L MCHC 29.6 L RDW 18.9 H Plt Count 322 Seg Neutrophils % 68.8 Lymphocytes % 20.3 Monocytes % 8.2 Eosinophils % 1.9 Basophils % 0.8 Absolute Neutrophils 7.4 Absolute Lymphocytes 2.2 Absolute Monocytes 0.9 Absolute Eosinophils 0.2 Absolute Basophils 0.1 Sodium 142.2 Potassium 5.5 H Chloride 107 Carbon Dioxide 25 Anion Gap 10 BUN 18 Creatinine 1.37 H Est GFR ( Amer) 46 L Est GFR (Non-Af Amer) 38 L Glucose 89 Calcium 8.4 Total Bilirubin 0.4 AST 16 ALT 18 Alkaline Phosphatase 68 Total Protein 5.9 L Albumin 3.1 L Urine Color STRAW Urine Appearance CLEAR Urine pH 8.0 Ur Specific [place] 1.012 Urine Protein 100 H Urine Glucose (UA) NEGATIVE Urine Ketones NEGATIVE Urine Blood NEGATIVE Urine Nitrite NEGATIVE Ur Leukocyte Esterase TRACE H Urine WBC (Auto) 8 Urine RBC (Auto) 0 Impressions: Cervical Spine CT 03/24/18 10:47 IMPRESSION: CHRONIC DEGENERATIVE CHANGES. NO ACUTE FINDINGS. Chest X-Ray 03/24/18 10:47 IMPRESSION: CARDIAC ENLARGEMENT. VASCULAR CONGESTION. Head CT 03/24/18 10:47 IMPRESSION: CHRONIC CHANGES OF ATROPHY AND MICROVASCULAR ISCHEMIA. NO ACUTE PROCESS. EVIDENCE OF ACUTE STROKE: NO. Shoulder X-Ray 03/24/18 10:47 IMPRESSION: Neer 1 part surgical neck fracture. Assessment & Plan - Diagnosis (1) Pre-syncope Is this a current diagnosis for this admission?: Yes Plan: Multifactorial. Possibly vasovagal, alcohol intoxication, dehydration and abnormal gait due to right metatarsal amputation for diabetic complication. Patient did not lose consciousness. Intact neurological examination. CT head and neck negative for any acute trauma. Volume resuscitation, monitor vitals, admit to telemetry, seizure, fall, aspiration precautions. (2) Diabetes mellitus Is this a current diagnosis for this admission?: Yes Plan: A1c on admission 7.5. Fasting blood glucose 89. Continue Accu-Chek, sliding scale, diabetic diet adjust dosage as needed. Adjust insulin as needed. (3) Plaque psoriasis Is this a current diagnosis for this admission?: No Plan: In remission. Restart Enbrel. Outpatient rheumatology follow-up. (4) Hyperkalemia Is this a current diagnosis for this admission?: Yes Plan: Likely due to rhabdomyolysis caused by recent fall. Hyperkalemia protocol. IV hydration. No EKG changes. Follow-up BMP. (5) History of COPD Is this a current diagnosis for this admission?: No Plan: Not on exacerbation. DuoNeb as needed, long-acting beta agonist, long-acting anticholinergics. (6) ETOH abuse Is this a current diagnosis for this admission?: Yes Plan: DT prophylaxis. Supplemental folic acid and thiamine. (7) Closed left humeral fracture Qualifiers: Encounter type: initial encounter Humerus Location: proximal Fracture morphology: unspecified fracture morphology Qualified Code(s): S42.202A - Unspecified fracture of upper end of left humerus, initial encounter for closed fracture Is this a current diagnosis for this admission?: Yes Plan: Due to recent fall. Supportive care. No intervention as per orthopedic surgeon recommendation. (8) Hypertension Qualifiers: Hypertension type: essential hypertension Qualified Code(s): I10 - Essential (primary) hypertension Is this a current diagnosis for this admission?: Yes Plan: Euvolemic, normotensive. Hold spironolactone due to hyperkalemia. Restart home meds once clinically appropriate. (9) Restless leg syndrome Is this a current diagnosis for this admission?: Yes Plan: Restart home meds. (10) Tobacco abuse Is this a current diagnosis for this admission?: Yes Plan: Nicotine patch. Patient was strongly advised about quitting smoking. (11) Anemia Qualifiers: Anemia type: unspecified type Qualified Code(s): D64.9 - Anemia, unspecified Is this a current diagnosis for this admission?: Yes Plan: Chronic. Dropping to be due to aggressive volume resuscitation. Status post 1 PRBC transfusion. Denies any hematemesis, hemoptysis, vaginal bleeding, melena , hematochezia. Iron workup and occult stool blood were ordered. Monitor H&H. If drops under 7 or to moderate or actively bleeding transfuse. If Hemoccult positive consult surgery for possible upper and lower endoscopy. (12) Depression Qualifiers: Depression Type: unspecified Qualified Code(s): F32.9 - Major depressive disorder, single episode, unspecified Is this a current diagnosis for this admission?: Yes Plan: Denies any homicidal or suicidal ideation. Restart home meds.
[2018-03-25] MEDS: DOXYCYCLINE HYCLATE 100 MG TABLET PO SCH (14:33)
[2018-03-25] MEDS: INSULIN LISPRO 100 UNIT/ML 3 ML VIAL SUBCUT PRN (14:34)
[2018-03-25] MEDS: PREGABALIN 100 MG CAPSULE PO SCH (18:13)
[2018-03-25] MEDS: LEVOFLOXACIN 750 MG/D5W RTU 750 MG/150 ML RTUPB IV SCH (18:13)
[2018-03-25 19:09] LABS: ANION GAP 8 (5-19); BLOOD UREA NITROGEN 19 mg/dL (7-20); CALCIUM 8.4 mg/dL (8.4-10.2); CARBON DIOXIDE 24 mmol/L (22-30); CHLORIDE 105 mmol/L (98-107); GLUCOSE 144 mg/dL (75-110); POTASSIUM 5.5 mmol/L (3.6-5.0); SODIUM 137.1 mmol/L (137-145)
[2018-03-25 20:15] LABS: ABSOLUTE BASOPHILS # (AUTO) 0.1 10^3/uL (0.0-0.2); ABSOLUTE EOSINOPHILS # (AUTO) 0.2 10^3/uL (0.0-0.6); ABSOLUTE LYMPHOCYTES (AUTO) 1.5 10^3/uL (0.5-4.7); ABSOLUTE MONOCYTES (AUTO) 0.9 10^3/uL (0.1-1.4); ABSOLUTE NEUT (AUTO) 7.3 10^3/uL (1.7-8.2); BASOPHILS % (AUTO) 0.6 % (0-2); EOSINOPHILS % (AUTO) 1.5 % (0-6); HEMATOCRIT 21.4 % (36.0-47.0); LYMPHOCYTES % (AUTO) 15.1 % (13-45); MEAN CORPUSCULAR HEMOGLOBIN 24.7 pg (27.0-33.4); MEAN CORPUSCULAR HGB CONC 31.6 g/dL (32.0-36.0); MEAN CORPUSCULAR VOLUME 78 fl (80-97); MONOCYTES % (AUTO) 8.7 % (3-13); PLATELET COUNT 256 10^3/uL (150-450); RED BLOOD COUNT 2.74 10^6/uL (3.72-5.28); RED CELL DISTRIBUTION WIDTH 19.9 % (11.5-14.0); SEGMENTED NEUTROPHILS % (AUTO) 74.1 % (42-78); TOTAL CELLS COUNTED % (AUTO) 100 %; WHITE BLOOD COUNT 9.8 10^3/uL (4.0-10.5)
[2018-03-25 20:30] LABS: HEMOGLOBIN 6.8 g/dL (12.0-15.5)
[2018-03-25] MEDS: ATORVASTATIN CALCIUM 10 MG TABLET PO SCH (22:35)
[2018-03-26] MEDS: NORMAL SALINE 1000 ML 1,000 ML IV PRN ×4 (02:05→21:49)
[2018-03-26] MEDS: LORAZEPAM INJ 2 MG/1 ML VIAL IV PRN ×2 (03:35→21:28)
[2018-03-26] MEDS: LANSOPRAZOLE 15 MG TAB.RAP.DR PO SCH ×2 (05:16→17:03)
[2018-03-26] MEDS: HEPARIN SOD (PORCINE) 5,000 UNIT/ML 1 ML SYRINGE SUBCUT SCH ×3 (05:16→21:28)
[2018-03-26 05:23] LABS: ABSOLUTE BASOPHILS # (AUTO) 0.1 10^3/uL (0.0-0.2); ABSOLUTE EOSINOPHILS # (AUTO) 0.1 10^3/uL (0.0-0.6); ABSOLUTE LYMPHOCYTES (AUTO) 1.7 10^3/uL (0.5-4.7); ABSOLUTE MONOCYTES (AUTO) 0.8 10^3/uL (0.1-1.4); ABSOLUTE NEUT (AUTO) 6.8 10^3/uL (1.7-8.2); BASOPHILS % (AUTO) 0.7 % (0-2); EOSINOPHILS % (AUTO) 1.5 % (0-6); HEMATOCRIT 25.7 % (36.0-47.0); HEMOGLOBIN 8.1 g/dL (12.0-15.5); LYMPHOCYTES % (AUTO) 18.2 % (13-45); MEAN CORPUSCULAR HEMOGLOBIN 25.1 pg (27.0-33.4); MEAN CORPUSCULAR HGB CONC 31.5 g/dL (32.0-36.0); MEAN CORPUSCULAR VOLUME 80 fl (80-97); MONOCYTES % (AUTO) 8.3 % (3-13); PLATELET COUNT 243 10^3/uL (150-450); RED BLOOD COUNT 3.22 10^6/uL (3.72-5.28); RED CELL DISTRIBUTION WIDTH 19.5 % (11.5-14.0); SEGMENTED NEUTROPHILS % (AUTO) 71.3 % (42-78); TOTAL CELLS COUNTED % (AUTO) 100 %; WHITE BLOOD COUNT 9.6 10^3/uL (4.0-10.5)
[2018-03-26 05:40] LABS: ALANINE AMINOTRANSFERASE 11 U/L (9-52); ALBUMIN 2.8 g/dL (3.5-5.0); ALKALINE PHOSPHATASE 57 U/L (38-126); ANION GAP 7 (5-19); ASPARTATE AMINO TRANSFERASE 13 U/L (14-36); BILIRUBIN,DIRECT 0.2 mg/dL (0.0-0.4); BILIRUBIN,TOTAL 0.8 mg/dL (0.2-1.3); BLOOD UREA NITROGEN 19 mg/dL (7-20); CALCIUM 8.2 mg/dL (8.4-10.2); CARBON DIOXIDE 26 mmol/L (22-30); CHLORIDE 105 mmol/L (98-107); GLUCOSE 138 mg/dL (75-110); POTASSIUM 5.1 mmol/L (3.6-5.0); SODIUM 138.2 mmol/L (137-145); TOTAL PROTEIN 5.4 g/dL (6.3-8.2)
[2018-03-26] MEDS: THIAMINE HCL 100 MG TABLET PO SCH (09:58)
[2018-03-26] MEDS: VENLAFAXINE HCL 75 MG CAP.SR.24H PO SCH (09:58)
[2018-03-26] MEDS: FOLIC ACID 1 MG TABLET PO SCH (09:58)
[2018-03-26] MEDS: OXYCODONE-ACETAMINOPHEN 5-325 MG TABLET PO PRN ×2 (09:58→21:45)
[2018-03-26] MEDS: GUAIFENESIN 600 MG TABLET.SA PO SCH ×2 (09:58→21:28)
[2018-03-26] MEDS: SALMETEROL XINAFOATE DISKUS 50 MCG/1 DOSE 28 DOSE IH SCH ×2 (10:00→21:31)
[2018-03-26] MEDS: DOXYCYCLINE HYCLATE 100 MG TABLET PO SCH (10:01)
[2018-03-26] MEDS: TIOTROPIUM BROMIDE DPI 5 CAP/KIT (18 MCG/CAP) IH SCH (10:01)
[2018-03-26] MEDS ORDERED: IPRATROPIUM/ALBUTEROL 0.5-2.5 MG/3 ML AMPUL NEB PRN (13:04)
[2018-03-26] MEDS ORDERED: (PENDING PHARMACY ID) (Diltiazem Hcl [Cartia Xt] 240 MG) PO SCH (14:15)
[2018-03-26] MEDS: DILTIAZEM HCL 120 MG CAP.SR.24H PO SCH (14:24)
--- NOTE | 2018-03-26 14:24 | PDOC PROGRESS REPORT ---
Subjective Progress Note for:: 03/26/18 Subjective:: Patient wearing the sling and sitting in the chair while eating lunch. Reason For Visit: PRESYNCOPE, LEFT SHOULDER FRACTURE Physical Exam Vital Signs: Temp Pulse Resp BP Pulse Ox 36.6 C 85 18 127/71 H 95 03/26/18 11:05 03/26/18 11:05 03/26/18 11:05 03/26/18 11:05 03/26/18 11:05 Intake & Output 03/25/18 03/26/18 03/27/18 06:59 06:59 05:59 Intake Total 1150 2935 1724 Output Total 1025 1450 175 Balance 125 1485 1549 Weight 72 kg 74.8 kg Adult Front & Back Image: 1 - Sling is in proper placement. Tender palpation and pain with attempted range of motion but neurovascular intact distally with appropriate swelling. Results Laboratory Results: 03/26/18 04:50 03/26/18 04:50 03/25/18 03/25/18 03/26/18 18:33 19:47 04:50 WBC 9.8 9.6 RBC 2.74 L 3.22 L Hgb 6.8 L 8.1 L Hct 21.4 L 25.7 L MCV 78 L 80 MCH 24.7 L 25.1 L MCHC 31.6 L 31.5 L RDW 19.9 H 19.5 H Plt Count 256 243 Seg Neutrophils % 74.1 71.3 Lymphocytes % 15.1 18.2 Monocytes % 8.7 8.3 Eosinophils % 1.5 1.5 Basophils % 0.6 0.7 Absolute Neutrophils 7.3 6.8 Absolute Lymphocytes 1.5 1.7 Absolute Monocytes 0.9 0.8 Absolute Eosinophils 0.2 0.1 Absolute Basophils 0.1 0.1 Sodium 137.1 Potassium 5.5 H Chloride 105 Carbon Dioxide 24 Anion Gap 8 BUN 19 Creatinine 1.28 H Est GFR ( Amer) 49 L Est GFR (Non-Af Amer) 41 L Glucose 144 H Calcium 8.4 Magnesium Total Bilirubin AST ALT Alkaline Phosphatase Total Protein Albumin 03/26/18 04:50 WBC RBC Hgb Hct MCV MCH MCHC RDW Plt Count Seg Neutrophils % Lymphocytes % Monocytes % Eosinophils % Basophils % Absolute Neutrophils Absolute Lymphocytes Absolute Monocytes Absolute Eosinophils Absolute Basophils Sodium 138.2 Potassium 5.1 H Chloride 105 Carbon Dioxide 26 Anion Gap 7 BUN 19 Creatinine 1.29 H Est GFR ( Amer) 49 L Est GFR (Non-Af Amer) 41 L Glucose 138 H Calcium 8.2 L Magnesium 1.6 Total Bilirubin 0.8 AST 13 L ALT 11 Alkaline Phosphatase 57 Total Protein 5.4 L Albumin 2.8 L Impressions: Cervical Spine CT 03/24/18 10:47 IMPRESSION: CHRONIC DEGENERATIVE CHANGES. NO ACUTE FINDINGS. Chest X-Ray 03/24/18 10:47 IMPRESSION: CARDIAC ENLARGEMENT. VASCULAR CONGESTION. Head CT 03/24/18 10:47 IMPRESSION: CHRONIC CHANGES OF ATROPHY AND MICROVASCULAR ISCHEMIA. NO ACUTE PROCESS. EVIDENCE OF ACUTE STROKE: NO. Shoulder X-Ray 03/24/18 10:47 IMPRESSION: Neer 1 part surgical neck fracture. Assessment & Plan - Plan Summary Plan Summary: 72-year-old female with minimally displaced left proximal humerus fracture that is amenable to nonoperative treatment. Continue nonweightbearing and sling. Patient can follow-up as an outpatient.
--- NOTE | 2018-03-26 15:06 | PDOC PROGRESS REPORT ---
Subjective Progress Note for:: 03/26/18 Subjective:: The patient is currently out of bed to the bedside chair. The patient denies any nausea, vomiting, diarrhea, shortness of breath, dizziness, chest pain, heart palpitations, fevers, or chills. The patient has remained afebrile. Blood pressures have been in a good range. The patient voices no other concerns at this time. Upon my entering of the room the patient was found to have her dressings unwrapped. Patient does have some edema of the lower extremity as well. Review of systems: The rest of the review of systems is negative. Reason For Visit: PRESYNCOPE, LEFT SHOULDER FRACTURE Physical Exam Vital Signs: Temp Pulse Resp BP Pulse Ox 97.8 F 85 18 127/71 H 95 03/26/18 11:05 03/26/18 11:05 03/26/18 11:05 03/26/18 11:05 03/26/18 11:05 Intake & Output 03/24/18 03/25/18 03/26/18 23:59 23:59 23:59 Intake Total 150 3029 2630 Output Total 1925 725 Balance 150 1104 1905 Weight 72 kg 74.8 kg General appearance: PRESENT: no acute distress, cooperative, disheveled, other - Frail chronically ill-appearing Head exam: PRESENT: atraumatic, normocephalic Eye exam: PRESENT: conjunctiva pink, EOMI, PERRLA. ABSENT: scleral icterus Ear exam: PRESENT: normal external ear exam Mouth exam: PRESENT: moist, tongue midline Neck exam: ABSENT: carotid bruit, JVD, lymphadenopathy, thyromegaly Respiratory exam: PRESENT: clear to auscultation lauren. ABSENT: rales, rhonchi, wheezes Cardiovascular exam: PRESENT: RRR. ABSENT: diastolic murmur, rubs, systolic murmur Pulses: PRESENT: +1 pedal pulses bilateral Vascular exam: PRESENT: normal capillary refill GI/Abdominal exam: PRESENT: normal bowel sounds, soft. ABSENT: distended, guarding, mass, organolmegaly, rebound, tenderness Rectal exam: PRESENT: deferred Extremities exam: PRESENT: full ROM, pedal edema. ABSENT: calf tenderness, clubbing Neurological exam: PRESENT: alert, awake, oriented to person, oriented to place , oriented to time, oriented to situation, CN II-XII grossly intact, other - Bizarre affect. ABSENT: motor sensory deficit Psychiatric exam: PRESENT: appropriate affect, normal mood. ABSENT: homicidal ideation, suicidal ideation Skin exam: PRESENT: abrasion, dry, intact, warm. ABSENT: cyanosis, rash Results Laboratory Results: 03/25/18 03/25/18 03/26/18 18:33 19:47 04:50 WBC 9.8 9.6 RBC 2.74 L 3.22 L Hgb 6.8 L 8.1 L Hct 21.4 L 25.7 L MCV 78 L 80 MCH 24.7 L 25.1 L MCHC 31.6 L 31.5 L RDW 19.9 H 19.5 H Plt Count 256 243 Seg Neutrophils % 74.1 71.3 Lymphocytes % 15.1 18.2 Monocytes % 8.7 8.3 Eosinophils % 1.5 1.5 Basophils % 0.6 0.7 Absolute Neutrophils 7.3 6.8 Absolute Lymphocytes 1.5 1.7 Absolute Monocytes 0.9 0.8 Absolute Eosinophils 0.2 0.1 Absolute Basophils 0.1 0.1 Sodium 137.1 Potassium 5.5 H Chloride 105 Carbon Dioxide 24 Anion Gap 8 BUN 19 Creatinine 1.28 H Est GFR ( Amer) 49 L Est GFR (Non-Af Amer) 41 L Glucose 144 H Calcium 8.4 Magnesium Total Bilirubin AST ALT Alkaline Phosphatase Total Protein Albumin 03/26/18 04:50 WBC RBC Hgb Hct MCV MCH MCHC RDW Plt Count Seg Neutrophils % Lymphocytes % Monocytes % Eosinophils % Basophils % Absolute Neutrophils Absolute Lymphocytes Absolute Monocytes Absolute Eosinophils Absolute Basophils Sodium 138.2 Potassium 5.1 H Chloride 105 Carbon Dioxide 26 Anion Gap 7 BUN 19 Creatinine 1.29 H Est GFR ( Amer) 49 L Est GFR (Non-Af Amer) 41 L Glucose 138 H Calcium 8.2 L Magnesium 1.6 Total Bilirubin 0.8 AST 13 L ALT 11 Alkaline Phosphatase 57 Total Protein 5.4 L Albumin 2.8 L Impressions: Cervical Spine CT 03/24/18 10:47 IMPRESSION: CHRONIC DEGENERATIVE CHANGES. NO ACUTE FINDINGS. Chest X-Ray 03/24/18 10:47 IMPRESSION: CARDIAC ENLARGEMENT. VASCULAR CONGESTION. Head CT 03/24/18 10:47 IMPRESSION: CHRONIC CHANGES OF ATROPHY AND MICROVASCULAR ISCHEMIA. NO ACUTE PROCESS. EVIDENCE OF ACUTE STROKE: NO. Shoulder X-Ray 03/24/18 10:47 IMPRESSION: Neer 1 part surgical neck fracture. Assessment & Plan - Diagnosis (1) Pre-syncope Is this a current diagnosis for this admission?: Yes Plan: The patient has had no further replication of symptoms. Most likely multifactorial including vasovagal, alcohol, dehydration, and abnormal gait. The patient denies loss of consciousness. The patient does have a intact neurological examination at this point in time. CT of the head and neck are negative for any acute trauma. Continue supportive measures. (2) Diabetes mellitus type 2 in nonobese Is this a current diagnosis for this admission?: Yes Plan: A1c on admission 7.5. Fasting blood glucose 89. Continue Accu-Chek, sliding scale, diabetic diet adjust dosage as needed. Adjust insulin as needed. Remained stable. (3) Plaque psoriasis Is this a current diagnosis for this admission?: No Plan: Is currently on outpatient Enbrel by dermatology. My concern is for secondary infection due to the patient's constant compulsive scratching. I have discussed this with the patient and she refuses constant wrapping to protect these extremities from her scratching behavior. (4) Hyperkalemia Is this a current diagnosis for this admission?: Yes Plan: Likely due to rhabdomyolysis caused by recent fall. Hyperkalemia protocol. IV hydration. No EKG changes. Follow-up BMP. (5) COPD (chronic obstructive pulmonary disease) Qualifiers: Is this a current diagnosis for this admission?: Yes Plan: N current exacerbation. DuoNeb as needed, long-acting beta agonist, long- acting anticholinergics. (6) ETOH abuse Is this a current diagnosis for this admission?: Yes Plan: DT prophylaxis. Supplemental folic acid and thiamine. (7) Closed left humeral fracture Qualifiers: Encounter type: initial encounter Humerus Location: proximal Fracture morphology: unspecified fracture morphology Qualified Code(s): S42.202A - Unspecified fracture of upper end of left humerus, initial encounter for closed fracture Is this a current diagnosis for this admission?: Yes Plan: Due to recent fall. Supportive care. No intervention as per orthopedic surgeon recommendation. (8) Hypertension Qualifiers: Hypertension type: essential hypertension Qualified Code(s): I10 - Essential (primary) hypertension Is this a current diagnosis for this admission?: Yes Plan: Hold spironolactone due to hyperkalemia. (9) Restless leg syndrome Is this a current diagnosis for this admission?: Yes (10) Tobacco abuse Is this a current diagnosis for this admission?: Yes (11) Anemia Qualifiers: Anemia type: unspecified type Qualified Code(s): D64.9 - Anemia, unspecified Is this a current diagnosis for this admission?: Yes Plan: Chronic. Dropping to be due to aggressive volume resuscitation. Status post 1 PRBC transfusion. Denies any hematemesis, hemoptysis, vaginal bleeding, melena , hematochezia. Iron workup and occult stool blood were ordered. Monitor H&H. If drops under 7 or to moderate or actively bleeding transfuse. If Hemoccult positive consult surgery for possible upper and lower endoscopy. (12) Depression Qualifiers: Depression Type: unspecified Qualified Code(s): F32.9 - Major depressive disorder, single episode, unspecified Is this a current diagnosis for this admission?: Yes Plan: Denies any homicidal or suicidal ideation. - Time Time Spent with patient: 25-34 minutes Medications reviewed and adjusted accordingly: Yes Disposition: The patient is listed as a full code. During previous visits it appears the patient has been listed as a DO NOT RESUSCITATE DO NOT INTUBATE will clarify this at some point. Pending patient's symptomatology and diagnostic findings will reevaluate in the a.m.
[2018-03-26] MEDS: INSULIN LISPRO 100 UNIT/ML 3 ML VIAL SUBCUT PRN ×2 (17:03→22:35)
[2018-03-26] MEDS: PREGABALIN 100 MG CAPSULE PO SCH (17:03)
[2018-03-26] MEDS: LEVOFLOXACIN 750 MG/D5W RTU 750 MG/150 ML RTUPB IV SCH (17:04)
[2018-03-26] MEDS: ATORVASTATIN CALCIUM 10 MG TABLET PO SCH (21:28)
[2018-03-27] MEDS: LORAZEPAM INJ 2 MG/1 ML VIAL IV PRN ×3 (01:20→21:18)
[2018-03-27] MEDS: LANSOPRAZOLE 15 MG TAB.RAP.DR PO SCH (05:09)
[2018-03-27] MEDS: HEPARIN SOD (PORCINE) 5,000 UNIT/ML 1 ML SYRINGE SUBCUT SCH ×3 (05:09→21:19)
[2018-03-27] MEDS: OXYCODONE-ACETAMINOPHEN 5-325 MG TABLET PO PRN (05:13)
[2018-03-27] MEDS: INSULIN LISPRO 100 UNIT/ML 3 ML VIAL SUBCUT PRN ×3 (08:32→22:17)
[2018-03-27 09:12] LABS: ABSOLUTE RETICS # 0.082 10^6/uL (0.028-0.122); RETICULOCYTE COUNT (AUTO) 2.52 % (0.66-2.85)
[2018-03-27 09:33] LABS: ANION GAP 8 (5-19); BLOOD UREA NITROGEN 21 mg/dL (7-20); CALCIUM 8.5 mg/dL (8.4-10.2); CARBON DIOXIDE 24 mmol/L (22-30); CHLORIDE 106 mmol/L (98-107); GLUCOSE 151 mg/dL (75-110); POTASSIUM 4.6 mmol/L (3.6-5.0); SODIUM 138.4 mmol/L (137-145)
[2018-03-27] MEDS: DOXYCYCLINE HYCLATE 100 MG TABLET PO SCH (09:46)
[2018-03-27] MEDS: FAMOTIDINE 20 MG TABLET PO SCH ×2 (09:46→21:19)
[2018-03-27] MEDS: DILTIAZEM HCL 120 MG CAP.SR.24H PO SCH (09:46)
[2018-03-27] MEDS: THIAMINE HCL 100 MG TABLET PO SCH (09:46)
[2018-03-27] MEDS: GUAIFENESIN 600 MG TABLET.SA PO SCH ×2 (09:46→21:19)
[2018-03-27] MEDS: VENLAFAXINE HCL 75 MG CAP.SR.24H PO SCH (09:46)
[2018-03-27] MEDS: NORMAL SALINE 1000 ML 1,000 ML IV PRN (09:47)
[2018-03-27] MEDS: SALMETEROL XINAFOATE DISKUS 50 MCG/1 DOSE 28 DOSE IH SCH ×2 (09:47→21:19)
[2018-03-27] MEDS: TIOTROPIUM BROMIDE DPI 5 CAP/KIT (18 MCG/CAP) IH SCH (09:47)
[2018-03-27] MEDS: FOLIC ACID 1 MG TABLET PO SCH (09:47)
[2018-03-27 10:39] LABS: FOLATE > 20.00 ng/mL (>2.76)
--- NOTE | 2018-03-27 11:12 | PDOC PROGRESS REPORT ---
Subjective Progress Note for:: 03/27/18 Subjective:: VIVEK MAGUIRE is a 72 year old female past medical history of hypertension type 2 diabetes mellitus, right diabetic foot status post first metatarsal amputation, COPD [current every other day smoker, not on home oxygen] , PVD, restless leg syndrome, hyperlipidemia, recurrent falls, alcohol abuse, plaque psoriasis, chronic bilateral lower extremity ulcers [states she has been apparently evaluated by a retail sales representative but does not remember the name of the condition that she is suffering from] . She moved [place] from [place] 4 years ago currently retired and living independently by herself all close relatives who has a close friend here at [place]. Patient was brought to EMS after fall. Patient is a daily EtOH drinker. Had a scotch last night to bed, woke up in the morning went to the restroom, when getting off of commode fell on the floor. Patient does not remember any preceding events prior to the fall but he states that she remember falling and landing on the floor did not lose consciousness however when trying to get up she felt severe pain in her left shoulder as a result remained on the floor for almost 2 hours, she kept yelling for help until a neighbor heard her and EMS was called. She also has an unsteady gait due to chronic plaque psoriasis, nonhealing noninfectious multiple ulcers, left metatarsal amputation due to diabetes complication which may have contributed to her recurrent falls. Patient denies any history of seizure, CVA, arrhythmia. She is complaining of severe left shoulder pain, facial pain, bilateral lower extremity nonhealing ulcers which are itchy and painful. She denies any fever, chills, chest pain, shortness of breath, nausea, vomiting, diarrhea, constipation or any urinary symptoms. She does not have any family members, states all of them have , in case of emergency she wants us to call her best friend. Number is available on the chart. 03/25/2018. No acute events overnight. On my encounter in the morning patient was sitting in bed having her breakfast however very sleepy due to Ativan she received overnight. Was able to visit her second time around 1 PM patient is still sleepy but arousable and cooperative. Patient is said that her left shoulder pain is improving and also she has not slept for several nights and she likes to keep sleeping. She denies any fever, chills, nausea, vomiting, diarrhea, constipation. She is easily arousable but falls asleep readily. 03/27/2018. Patient removed her Padilla cath process assistant and it was replaced. Upon my encounter patient is sleeping but easily arousable. She stating that her left shoulder pain is better and is inquiring about possible discharge home. Patient has not had any episode of syncope or presyncope since admission. Patient has been informed about possibility of sending her to rehab but she refuses to go to a rehab is stating that she has been receiving physical therapy as outpatient. Reason For Visit: PRESYNCOPE, LEFT SHOULDER FRACTURE Physical Exam Vital Signs: Temp Pulse Resp BP Pulse Ox 97.4 F 92 16 119/62 94 03/27/18 07:37 03/27/18 08:00 03/27/18 08:00 03/27/18 07:37 03/27/18 08:00 Intake & Output 03/26/18 03/27/18 03/28/18 07:59 06:59 06:59 Intake Total 1000 Output Total Balance 1000 Weight General appearance: PRESENT: no acute distress, well-developed, well-nourished Respiratory exam: PRESENT: clear to auscultation lauren. ABSENT: rales, rhonchi, wheezes Cardiovascular exam: PRESENT: RRR. ABSENT: diastolic murmur, rubs, systolic murmur GI/Abdominal exam: PRESENT: normal bowel sounds, soft. ABSENT: distended, guarding, mass, organolmegaly, rebound, tenderness Extremities exam: PRESENT: full ROM. ABSENT: calf tenderness - Left shoulder pain on active and passive range of motion., clubbing, pedal edema Skin exam: PRESENT: other - Patient has multiple shallow ulcers noninfected with could be possibly due to excessive scratching of her plaque psoriasis. Results Laboratory Results: 03/26/18 04:50 03/27/18 08:46 03/27/18 03/27/18 08:46 08:46 Retic Count (auto) 2.52 Absolute Retic 0.082 Sodium 138.4 Potassium 4.6 Chloride 106 Carbon Dioxide 24 Anion Gap 8 BUN 21 H Creatinine 1.26 H Est GFR ( Amer) 50 L Est GFR (Non-Af Amer) 42 L Glucose 151 H Calcium 8.5 Magnesium 1.6 Iron Cancelled TIBC Cancelled % Saturation Cancelled Ferritin 19.10 Vitamin B12 196.0 L Folate > 20.00 Impressions: Cervical Spine CT 03/24/18 10:47 IMPRESSION: CHRONIC DEGENERATIVE CHANGES. NO ACUTE FINDINGS. Chest X-Ray 03/24/18 10:47 IMPRESSION: CARDIAC ENLARGEMENT. VASCULAR CONGESTION. Head CT 03/24/18 10:47 IMPRESSION: CHRONIC CHANGES OF ATROPHY AND MICROVASCULAR ISCHEMIA. NO ACUTE PROCESS. EVIDENCE OF ACUTE STROKE: NO. Shoulder X-Ray 03/24/18 10:47 IMPRESSION: Neer 1 part surgical neck fracture. Assessment & Plan - Diagnosis (1) Pre-syncope Is this a current diagnosis for this admission?: Yes Plan: Multifactorial. Possibly vasovagal, alcohol intoxication, dehydration and abnormal gait due to right metatarsal amputation for diabetic complication. Patient did not lose consciousness. Intact neurological examination. CT head and neck negative for any acute trauma. Has not had any recurrence of presyncope. Continue telemetry, seizure precaution, aspiration precaution. Physical therapy. Patient refusing to be sent to rehab. (2) Diabetes mellitus Is this a current diagnosis for this admission?: Yes Plan: A1c on admission 7.5. Fasting blood glucose 89. Continue Accu-Chek, sliding scale, diabetic diet adjust dosage as needed. Adjust insulin as needed. (3) Plaque psoriasis Is this a current diagnosis for this admission?: No Plan: In remission. Restart Enbrel. Outpatient rheumatology follow-up. Patient has multiple bilateral lower extremity shallow ulcers which could be due to excessive scratching of her plaque psoriasis. The patient stated that she has been followed by her retail sales representative as outpatient. Takes Enbrel and doxycycline chronically. Continue wound care. (4) Hyperkalemia Is this a current diagnosis for this admission?: Yes Plan: Resolved. Likely due to rhabdomyolysis caused by recent fall. (5) History of COPD Is this a current diagnosis for this admission?: No Plan: Not on exacerbation. DuoNeb as needed, long-acting beta agonist, long-acting anticholinergics. (6) ETOH abuse Is this a current diagnosis for this admission?: Yes Plan: Patient is a daily drinker. No signs of withdrawal. DT prophylaxis but limit benzos use if possible due to excessive sleepiness since admission. Supplemental folic acid and thiamine. (7) Closed left humeral fracture Qualifiers: Encounter type: initial encounter Humerus Location: proximal Fracture morphology: unspecified fracture morphology Qualified Code(s): S42.202A - Unspecified fracture of upper end of left humerus, initial encounter for closed fracture Is this a current diagnosis for this admission?: Yes Plan: Due to recent fall. Supportive care. No intervention as per orthopedic surgeon recommendation. (8) Hypertension Qualifiers: Hypertension type: essential hypertension Qualified Code(s): I10 - Essential (primary) hypertension Is this a current diagnosis for this admission?: Yes Plan: Euvolemic, normotensive. Hold spironolactone due to hyperkalemia. Restart home meds once clinically appropriate. (9) Restless leg syndrome Is this a current diagnosis for this admission?: Yes Plan: Restart home meds. (10) Tobacco abuse Is this a current diagnosis for this admission?: Yes Plan: Nicotine patch. Patient was strongly advised about quitting smoking. (11) Anemia Qualifiers: Anemia type: iron deficiency Iron deficiency anemia type: inadequate dietary iron intake Qualified Code(s): D50.8 - Other iron deficiency anemias Is this a current diagnosis for this admission?: Yes Plan: Chronic. 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 Low iron and B12 levels. Likely dietary deficiency. Patient is daily alcohol drinker. H&H stable. Pending guaiac. Status post 1 PRBC transfusion 05/25/2017. Start her on iron and B12 supplement. Denies any hematemesis, hemoptysis, vaginal bleeding, melena, hematochezia. Monitor H&H. If drops under 7 or to moderate or actively bleeding transfuse. If Hemoccult positive consult surgery for possible upper and lower endoscopy. (12) Depression Qualifiers: Depression Type: unspecified Qualified Code(s): F32.9 - Major depressive disorder, single episode, unspecified Is this a current diagnosis for this admission?: Yes Plan: Denies any homicidal or suicidal ideation. Restart home meds.
[2018-03-27 11:14] LABS: IRON(TIBC) 13.6 ug/dL (37-170)
[2018-03-27] MEDS: ACETAMINOPHEN 325 MG TABLET PO PRN (14:42)
[2018-03-27] MEDS: CYANOCOBALAMIN (VITAMIN B-12) INJ 1000 MCG/1 ML VIAL IM SCH (14:58)
[2018-03-27] MEDS: PREGABALIN 100 MG CAPSULE PO SCH (17:24)
[2018-03-27] MEDS: FERROUS SULFATE 325 MG TABLET PO SCH (17:25)
[2018-03-27] MEDS ORDERED: FERROUS SULFATE 325 MG TABLET PO SCH (18:00)
[2018-03-27] MEDS: ATORVASTATIN CALCIUM 10 MG TABLET PO SCH (21:19)
[2018-03-28 05:19] LABS: ALANINE AMINOTRANSFERASE 25 U/L (9-52); ALBUMIN 3.1 g/dL (3.5-5.0); ALKALINE PHOSPHATASE 64 U/L (38-126); ANION GAP 12 (5-19); ASPARTATE AMINO TRANSFERASE 23 U/L (14-36); BILIRUBIN,DIRECT 0.2 mg/dL (0.0-0.4); BILIRUBIN,TOTAL 0.6 mg/dL (0.2-1.3); BLOOD UREA NITROGEN 20 mg/dL (7-20); CALCIUM 8.7 mg/dL (8.4-10.2); CARBON DIOXIDE 21 mmol/L (22-30); CHLORIDE 106 mmol/L (98-107); GLUCOSE 136 mg/dL (75-110); POTASSIUM 4.9 mmol/L (3.6-5.0); SODIUM 138.6 mmol/L (137-145); TOTAL PROTEIN 5.9 g/dL (6.3-8.2)
[2018-03-28 05:22] LABS: ABSOLUTE BASOPHILS # (AUTO) 0.1 10^3/uL (0.0-0.2); ABSOLUTE EOSINOPHILS # (AUTO) 0.2 10^3/uL (0.0-0.6); ABSOLUTE LYMPHOCYTES (AUTO) 1.1 10^3/uL (0.5-4.7); ABSOLUTE MONOCYTES (AUTO) 0.7 10^3/uL (0.1-1.4); ABSOLUTE NEUT (AUTO) 7.6 10^3/uL (1.7-8.2); BASOPHILS % (AUTO) 0.5 % (0-2); EOSINOPHILS % (AUTO) 1.8 % (0-6); HEMATOCRIT 24.2 % (36.0-47.0); HEMOGLOBIN 8.1 g/dL (12.0-15.5); LYMPHOCYTES % (AUTO) 11.3 % (13-45); MEAN CORPUSCULAR HEMOGLOBIN 26.3 pg (27.0-33.4); MEAN CORPUSCULAR HGB CONC 33.3 g/dL (32.0-36.0); MEAN CORPUSCULAR VOLUME 79 fl (80-97); MONOCYTES % (AUTO) 7.7 % (3-13); PLATELET COUNT 225 10^3/uL (150-450); RED BLOOD COUNT 3.06 10^6/uL (3.72-5.28); RED CELL DISTRIBUTION WIDTH 20.7 % (11.5-14.0); SEGMENTED NEUTROPHILS % (AUTO) 78.7 % (42-78); TOTAL CELLS COUNTED % (AUTO) 100 %; WHITE BLOOD COUNT 9.6 10^3/uL (4.0-10.5)
[2018-03-28] MEDS: HEPARIN SOD (PORCINE) 5,000 UNIT/ML 1 ML SYRINGE SUBCUT SCH ×3 (05:47→22:13)
[2018-03-28] MEDS: OXYCODONE-ACETAMINOPHEN 5-325 MG TABLET PO PRN ×2 (07:46→22:13)
[2018-03-28] MEDS: FERROUS SULFATE 325 MG TABLET PO SCH ×2 (07:47→17:44)
[2018-03-28] MEDS: INSULIN LISPRO 100 UNIT/ML 3 ML VIAL SUBCUT PRN ×3 (07:47→17:44)
[2018-03-28 09:11] LABS: ARTERIAL BLOOD BASE EXCESS -3.9 mmol/L; ARTERIAL BLOOD H2CO3 1.54 mmol/L (1.05-1.35); ARTERIAL BLOOD PCO2 51.3 mmHg (35-45); ARTERIAL BLOOD PH 7.27 (7.35-7.45); ARTERIAL BLOOD PO2 61.4 mmHg (80-100); ARTERIAL BLOOD TOTAL CO2 24.6 mmol/L (21-25)
[2018-03-28 09:12] LABS: ARTERIAL BLOOD FIO2 36%
[2018-03-28] MEDS ORDERED: IPRATROPIUM/ALBUTEROL 0.5-2.5 MG/3 ML AMPUL NEB PRN (09:15)
[2018-03-28] MEDS: GUAIFENESIN 600 MG TABLET.SA PO SCH ×2 (09:42→22:12)
[2018-03-28] MEDS: VENLAFAXINE HCL 75 MG CAP.SR.24H PO SCH (09:42)
[2018-03-28] MEDS: FAMOTIDINE 20 MG TABLET PO SCH ×2 (09:42→22:12)
[2018-03-28] MEDS: DILTIAZEM HCL 240 MG CAPSULE.CR PO SCH (09:42)
[2018-03-28] MEDS: CYANOCOBALAMIN (VITAMIN B-12) INJ 1000 MCG/1 ML VIAL IM SCH (09:42)
[2018-03-28] MEDS: SALMETEROL XINAFOATE DISKUS 50 MCG/1 DOSE 28 DOSE IH SCH ×2 (09:42→22:13)
[2018-03-28] MEDS: THIAMINE HCL 100 MG TABLET PO SCH (09:42)
[2018-03-28] MEDS: FOLIC ACID 1 MG TABLET PO SCH (09:43)
[2018-03-28] MEDS: DOXYCYCLINE HYCLATE 100 MG TABLET PO SCH (09:43)
[2018-03-28] MEDS: TIOTROPIUM BROMIDE DPI 5 CAP/KIT (18 MCG/CAP) IH SCH (09:43)
--- NOTE | 2018-03-28 09:52 | RADIOLOGY REPORT (SQ) ---
EXAM DESCRIPTION: CHEST SINGLE VIEW COMPLETED DATE/TIME: 03/28/2018 9:24 am REASON FOR STUDY: SOB COMPARISON: 03/24/2018. EXAM PARAMETERS: NUMBER OF VIEWS: One view. TECHNIQUE: Single frontal radiographic view of the chest acquired. RADIATION DOSE: NA LIMITATIONS: None. FINDINGS: LUNGS AND PLEURA: Indistinct airspace disease in the right lung appears slightly more prom inent. Stable presumed atelectasis in the left lung base. MEDIASTINUM AND HILAR STRUCTURES: No masses. Contour normal. HEART AND VASCULAR STRUCTURES: Heart normal in size. Normal vasculature. BONES: Left humeral neck fracture, previously evaluated. Chronic changes in the right shoulder. HARDWARE: None in the chest. OTHER: No other significant finding. IMPRESSION: SLIGHT INCREASE IN AIRSPACE DISEASE IN THE RIGHT LUNG POSSIBLY INDICATING EARLY PNEUMONI A. TECHNICAL DOCUMENTATION: JOB ID: [id number] [email or web address]- All Rights Reserved Reading location - IP/workstation name: [email or web address]
[2018-03-28] MEDS ORDERED: LEVOFLOXACIN 750 MG/D5W RTU 750 MG/150 ML RTUPB IV SCH (10:00)
[2018-03-28] MEDS ORDERED: POLYETHYLENE GLYCOL 3350 POWDER 17 GM/1 PACKET PO ONE (10:00)
--- NOTE | 2018-03-28 10:34 | PDOC PROGRESS REPORT ---
Subjective Progress Note for:: 03/28/18 Subjective:: VIVEK MAGUIRE is a 72 year old female past medical history of hypertension type 2 diabetes mellitus, right diabetic foot status post first metatarsal amputation, COPD [current every other day smoker, not on home oxygen] , PVD, restless leg syndrome, hyperlipidemia, recurrent falls, alcohol abuse, plaque psoriasis, chronic bilateral lower extremity ulcers [states she has been apparently evaluated by a burn center nurse but does not remember the name of the condition that she is suffering from] . She moved [place] from [place] 4 years ago currently retired and living independently by herself all close relatives who has a close friend here at [place]. Patient was brought to EMS after fall. Patient is a daily EtOH drinker. Had a scotch last night to bed, woke up in the morning went to the restroom, when getting off of commode fell on the floor. Patient does not remember any preceding events prior to the fall but he states that she remember falling and landing on the floor did not lose consciousness however when trying to get up she felt severe pain in her left shoulder as a result remained on the floor for almost 2 hours, she kept yelling for help until a neighbor heard her and EMS was called. She also has an unsteady gait due to chronic plaque psoriasis, nonhealing noninfectious multiple ulcers, left metatarsal amputation due to diabetes complication which may have contributed to her recurrent falls. Patient denies any history of seizure, CVA, arrhythmia. She is complaining of severe left shoulder pain, facial pain, bilateral lower extremity nonhealing ulcers which are itchy and painful. She denies any fever, chills, chest pain, shortness of breath, nausea, vomiting, diarrhea, constipation or any urinary symptoms. She does not have any family members, states all of them have , in case of emergency she wants us to call her best friend. Number is available on the chart. 03/25/2018. No acute events overnight. On my encounter in the morning patient was sitting in bed having her breakfast however very sleepy due to Ativan she received overnight. Was able to visit her second time around 1 PM patient is still sleepy but arousable and cooperative. Patient is said that her left shoulder pain is improving and also she has not slept for several nights and she likes to keep sleeping. She denies any fever, chills, nausea, vomiting, diarrhea, constipation. She is easily arousable but falls asleep readily. 03/27/2018. Patient removed her Padilla cath patient intake coordinator and it was replaced. Upon my encounter patient is sleeping but easily arousable. She stating that her left shoulder pain is better and is inquiring about possible discharge home. Patient has not had any episode of syncope or presyncope since admission. Patient has been informed about possibility of sending her to rehab but she refuses to go to a rehab is stating that she has been receiving physical therapy as outpatient. 02/25/2018. No acute events overnight. Patient has been more awake and active. Resting comfortably in her bed not in any acute distress. She has been complaining of shortness of breath overnight however refusing to use CPAP or BiPAP. She was advised on the need for BiPAP and she agreed to use it for short times. Denies any chest pain, nausea, vomiting, diarrhea, constipation or any urinary symptoms. Reason For Visit: PRESYNCOPE, LEFT SHOULDER FRACTURE Physical Exam Vital Signs: Temp Pulse Resp BP Pulse Ox 98.9 F 105 H 28 H 168/64 H 94 03/28/18 07:20 03/28/18 08:57 03/28/18 08:57 03/28/18 07:20 03/28/18 08:57 Intake & Output 03/27/18 03/28/18 03/29/18 06:59 06:59 06:59 Intake Total 3088 Output Total 1300 Balance 1788 Weight 76.2 kg General appearance: PRESENT: no acute distress, well-developed, well-nourished Respiratory exam: PRESENT: decreased breath sounds, prolonged expiratory phas. ABSENT: rales, rhonchi, wheezes - Expiratory wheezes. GI/Abdominal exam: PRESENT: normal bowel sounds, soft. ABSENT: distended, guarding, mass, organolmegaly, rebound, tenderness Musculoskeletal exam: PRESENT: ambulatory, deformity, dislocation, full ROM, normal inspection, tenderness, other Neurological exam: PRESENT: alert, awake, oriented to person, oriented to place , oriented to time, oriented to situation, CN II-XII grossly intact. ABSENT: motor sensory deficit Skin exam: PRESENT: dry, intact - Lower extremity shallow ulcers on admission has been improving. Patient has not been picking on them since her admission patient., warm. ABSENT: cyanosis, rash Results Laboratory Results: 03/28/18 03:56 03/28/18 03:56 03/27/18 03/27/18 03/28/18 08:46 10:05 03:56 WBC 9.6 RBC 3.06 L Hgb 8.1 L Hct 24.2 L MCV 79 L MCH 26.3 L MCHC 33.3 RDW 20.7 H Plt Count 225 Seg Neutrophils % 78.7 H Lymphocytes % 11.3 L Monocytes % 7.7 Eosinophils % 1.8 Basophils % 0.5 Absolute Neutrophils 7.6 Absolute Lymphocytes 1.1 Absolute Monocytes 0.7 Absolute Eosinophils 0.2 Absolute Basophils 0.1 Carbonic Acid HCO3/H2CO3 Ratio ABG pH ABG pCO2 ABG pO2 ABG HCO3 ABG O2 Saturation ABG Base Excess FiO2 Sodium 138.4 Potassium 4.6 Chloride 106 Carbon Dioxide 24 Anion Gap 8 BUN 21 H Creatinine 1.26 H Est GFR ( Amer) 50 L Est GFR (Non-Af Amer) 42 L Glucose 151 H Calcium 8.5 Magnesium 1.6 Iron Cancelled 13.6 L TIBC Cancelled 361 % Saturation Cancelled 4 Ferritin 19.10 Total Bilirubin AST ALT Alkaline Phosphatase Total Protein Albumin Vitamin B12 196.0 L Folate > 20.00 03/28/18 03/28/18 03:56 08:15 WBC RBC Hgb Hct MCV MCH MCHC RDW Plt Count Seg Neutrophils % Lymphocytes % Monocytes % Eosinophils % Basophils % Absolute Neutrophils Absolute Lymphocytes Absolute Monocytes Absolute Eosinophils Absolute Basophils Carbonic Acid 1.54 H HCO3/H2CO3 Ratio 14:1 ABG pH 7.27 L ABG pCO2 51.3 H ABG pO2 61.4 L ABG HCO3 23.0 ABG O2 Saturation 88.0 L ABG Base Excess -3.9 FiO2 36% Sodium 138.6 Potassium 4.9 Chloride 106 Carbon Dioxide 21 L Anion Gap 12 BUN 20 Creatinine 1.25 Est GFR ( Amer) 51 L Est GFR (Non-Af Amer) 42 L Glucose 136 H Calcium 8.7 Magnesium 1.6 Iron TIBC % Saturation Ferritin Total Bilirubin 0.6 AST 23 ALT 25 Alkaline Phosphatase 64 Total Protein 5.9 L Albumin 3.1 L Vitamin B12 Folate Impressions: Cervical Spine CT 03/24/18 10:47 IMPRESSION: CHRONIC DEGENERATIVE CHANGES. NO ACUTE FINDINGS. Head CT 03/24/18 10:47 IMPRESSION: CHRONIC CHANGES OF ATROPHY AND MICROVASCULAR ISCHEMIA. NO ACUTE PROCESS. EVIDENCE OF ACUTE STROKE: NO. Shoulder X-Ray 03/24/18 10:47 IMPRESSION: Neer 1 part surgical neck fracture. Chest X-Ray 03/28/18 09:07 IMPRESSION: SLIGHT INCREASE IN AIRSPACE DISEASE IN THE RIGHT LUNG POSSIBLY INDICATING EARLY PNEUMONIA. Assessment & Plan - Diagnosis (1) Respiratory failure with hypoxia and hypercapnia Qualifiers: Chronicity: acute on chronic Qualified Code(s): J96.21 - Acute and chronic respiratory failure with hypoxia; J96.22 - Acute and chronic respiratory failure with hypercapnia; J96.22 - Acute and chronic respiratory failure with hypercapnia; J96.22 - Acute and chronic respiratory failure with hypercapnia Is this a current diagnosis for this admission?: Yes Plan: ABG positive for respiratory acidosis with hypoxia likely secondary to acute COPD exacerbation. Patient has agreed to use BiPAP intermittently. Will treat for acute COPD exacerbation. (2) COPD exacerbation Is this a current diagnosis for this admission?: Yes Plan: ABG with respiratory acidosis and mild hypoxia, chest x-ray show likely early developing pneumonia. Will start on IV steroids, empiric antibiotics, DuoNeb, long-acting beta-dawti and anticholinergics, and BiPAP. Patient is afebrile CBC with no leukocytosis. Sputum and blood culture. (3) Pre-syncope Is this a current diagnosis for this admission?: Yes Plan: No recurrence since hospitalization. Multifactorial. Possibly vasovagal, alcohol intoxication, dehydration and abnormal gait due to right metatarsal amputation for diabetic complication. Patient did not lose consciousness. Intact neurological examination. CT head and neck negative for any acute trauma. Continue telemetry, seizure precaution, aspiration precaution and physical therapy. Patient refusing to be sent to rehab stating that she has established physical therapy as outpatient.. (4) Diabetes mellitus Is this a current diagnosis for this admission?: Yes Plan: A1c on admission 7.5. Fasting blood glucose 89. Continue Accu-Chek, sliding scale, diabetic diet adjust dosage as needed. Adjust insulin as needed. (5) Plaque psoriasis Is this a current diagnosis for this admission?: No Plan: In remission. Restart Enbrel. Outpatient rheumatology follow-up. Patient has multiple bilateral lower extremity shallow ulcers which could be due to excessive scratching of her plaque psoriasis improving since admission. She stated that she has been followed by her burn center nurse as outpatient. Takes Enbrel and doxycycline chronically. Continue wound care. (6) Hyperkalemia Is this a current diagnosis for this admission?: Yes Plan: Resolved. Likely due to rhabdomyolysis caused by recent fall. (7) ETOH abuse Is this a current diagnosis for this admission?: Yes Plan: Patient is a daily drinker. No signs of withdrawal. DT prophylaxis but limit benzos use if possible due to excessive sleepiness since admission. Supplemental folic acid and thiamine. (8) Closed left humeral fracture Qualifiers: Encounter type: initial encounter Humerus Location: proximal Fracture morphology: unspecified fracture morphology Qualified Code(s): S42.202A - Unspecified fracture of upper end of left humerus, initial encounter for closed fracture Is this a current diagnosis for this admission?: Yes Plan: Due to recent fall. Supportive care. No intervention as per orthopedic surgeon recommendation. (9) Hypertension Qualifiers: Hypertension type: essential hypertension Qualified Code(s): I10 - Essential (primary) hypertension Is this a current diagnosis for this admission?: Yes Plan: Euvolemic, normotensive. Hold spironolactone due to hyperkalemia. Restart home meds once clinically appropriate. (10) Restless leg syndrome Is this a current diagnosis for this admission?: Yes Plan: Restart home meds. (11) Tobacco abuse Is this a current diagnosis for this admission?: Yes Plan: Nicotine patch. Patient was strongly advised about quitting smoking. (12) Anemia Qualifiers: Anemia type: iron deficiency Iron deficiency anemia type: inadequate dietary iron intake Qualified Code(s): D50.8 - Other iron deficiency anemias Is this a current diagnosis for this admission?: Yes Plan: Chronic. 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 Low iron and B12 levels. Likely dietary deficiency. Patient is daily alcohol drinker. H&H stable. Pending guaiac. Status post 1 PRBC transfusion 05/25/2017. Start her on iron and B12 supplement. Denies any hematemesis, hemoptysis, vaginal bleeding, melena, hematochezia. Monitor H&H. If drops under 7 or to moderate or actively bleeding transfuse. If Hemoccult positive consult surgery for possible upper and lower endoscopy. (13) Depression Qualifiers: Depression Type: unspecified Qualified Code(s): F32.9 - Major depressive disorder, single episode, unspecified Is this a current diagnosis for this admission?: Yes Plan: Denies any homicidal or suicidal ideation. Restart home meds.
[2018-03-28] MEDS: METHYLPREDNISOLONE INJ 40 MG/1 ML SDV IV SCH ×2 (14:06→22:12)
[2018-03-28] MEDS: PREGABALIN 100 MG CAPSULE PO SCH (17:44)
[2018-03-28] MEDS: ATORVASTATIN CALCIUM 10 MG TABLET PO SCH (22:12)
[2018-03-29] MEDS: HEPARIN SOD (PORCINE) 5,000 UNIT/ML 1 ML SYRINGE SUBCUT SCH ×2 (05:47→13:15)
[2018-03-29] MEDS: METHYLPREDNISOLONE INJ 40 MG/1 ML SDV IV SCH ×2 (05:48→13:22)
[2018-03-29] MEDS: INSULIN LISPRO 100 UNIT/ML 3 ML VIAL SUBCUT PRN ×2 (08:26→12:21)
[2018-03-29] MEDS ORDERED: POLYETHYLENE GLYCOL 3350 POWDER 17 GM/1 PACKET PO ONE (09:30)
[2018-03-29] MEDS: VENLAFAXINE HCL 75 MG CAP.SR.24H PO SCH (10:13)
[2018-03-29] MEDS: DILTIAZEM HCL 240 MG CAPSULE.CR PO SCH (10:13)
[2018-03-29] MEDS: FERROUS SULFATE 325 MG TABLET PO SCH (10:13)
[2018-03-29] MEDS: THIAMINE HCL 100 MG TABLET PO SCH (10:13)
[2018-03-29] MEDS: SALMETEROL XINAFOATE DISKUS 50 MCG/1 DOSE 28 DOSE IH SCH (10:14)
[2018-03-29] MEDS: CYANOCOBALAMIN (VITAMIN B-12) INJ 1000 MCG/1 ML VIAL IM SCH (10:14)
[2018-03-29] MEDS: GUAIFENESIN 600 MG TABLET.SA PO SCH (10:14)
[2018-03-29] MEDS: FAMOTIDINE 20 MG TABLET PO SCH (10:14)
[2018-03-29] MEDS: TIOTROPIUM BROMIDE DPI 5 CAP/KIT (18 MCG/CAP) IH SCH (10:15)
[2018-03-29] MEDS: DOXYCYCLINE HYCLATE 100 MG TABLET PO SCH (10:16)
[2018-03-29] MEDS: FOLIC ACID 1 MG TABLET PO SCH (10:28)
[2018-03-29 11:28] LABS: IRON(TIBC) < 10.1 ug/dL (37-170)
[2018-03-29] MEDS: OXYCODONE-ACETAMINOPHEN 5-325 MG TABLET PO PRN (12:09)
[2018-03-29 15:30] VITALS: BP 120/53
--- NOTE | 2018-03-29 17:00 | PDOC DISCHARGE SUMMARY ---
General - Admit/Disc Date/PCP Admission Date/Primary Care Provider: 03/24/18 14:26 Discharge Date: 03/29/18 - Discharge Diagnosis (1) Fall Is this a current diagnosis for this admission?: Yes (2) COPD exacerbation Is this a current diagnosis for this admission?: Yes (3) Acute on chronic respiratory failure with hypoxemia Is this a current diagnosis for this admission?: Yes (4) Pneumonia Is this a current diagnosis for this admission?: Yes - Additional Information Resuscitation Status: Do Not Resuscitate Discharge Diet: As Tolerated Discharge Activity: Activity As Tolerated Prescriptions: Ferrous Sulfate [Feosol 325 mg Tablet] 325 mg PO DAILY 1 Days #60 tablet Fluticasone/Salmeterol [Fluticasone-Salmeterol 232-14] 1 each IH Q12H #1 aer.pow.ba Levofloxacin [Levaquin 750 mg Tablet] 750 mg PO DAILY #6 tab Prednisone 20 mg PO BID 5 Days #10 tablet Home Medications: Albuterol Sulfate [Proair HFA] 1 puff IH Q4HP PRN 03/24/18 Aspirin/Acetaminophen/Caffeine [Excedrin Extra Strength Caplet] 2 tab PO Q6HP PRN 03/24/18 Atorvastatin Calcium [Lipitor 10 mg Tablet] 10 mg PO QHS 03/24/18 Cholecalciferol (Vitamin D3) [Vitamin D3 5000 unit Capsule] 5,000 unit PO DAILY 03/24/18 Diazepam [Valium 5 mg Tablet] 5 mg PO DAILYP PRN 03/24/18 Diltiazem HCl [Cartia Xt] 240 mg PO DAILY 03/24/18 Etanercept [Enbrel] 50 mg SQ MOWE 03/24/18 Folic Acid [Folvite 1 mg Tablet] 1 mg PO DAILY 03/24/18 Hydralazine HCl [Apresoline 50 mg Tablet] 50 mg PO Q8 03/24/18 Insulin Glargine,Hum.rec.anlog [Lantus Solostar] 30 units SQ QAM 03/24/18 Insulin Glargine,Hum.rec.anlog [Lantus Solostar] 40 units SQ QPM 03/24/18 Metformin HCl [Glucophage XR 500 mg Tablet] 1,000 mg PO BID 03/24/18 Pramipexole Di-HCl [Mirapex ER] 3.75 mg PO QPM 03/24/18 Pregabalin [Lyrica 100 mg Capsule] 100 mg PO QPM 03/24/18 Spironolactone [Aldactone 100 mg Tablet] 100 mg PO DAILY 03/24/18 Tiotropium [place] [Spiriva Handihaler 18 mcg/dose (30 Dose)] 18 mcg IH DAILY Venlafaxine HCl [Effexor Xr] 150 mg PO DAILY 03/24/18 Ferrous Sulfate [Feosol 325 mg Tablet] 325 mg PO DAILY 1 Days #60 tablet Fluticasone/Salmeterol [Fluticasone-Salmeterol 232-14] 1 each IH Q12H #1 aer.pow.ba 03/29/18 Levofloxacin [Levaquin 750 mg Tablet] 750 mg PO DAILY #6 tab 03/29/18 Prednisone 20 mg PO BID 5 Days #10 tablet 03/29/18 History of Present Illness History of Present Illness: Admitting hospitalist's H&P: VIVEK MAGUIRE is a 72 year old female past medical history of hypertension type 2 diabetes mellitus, right diabetic foot status post first metatarsal amputation, COPD [current every other day smoker, not on home oxygen] , PVD, restless leg syndrome, hyperlipidemia, recurrent falls, alcohol abuse, plaque psoriasis, chronic bilateral lower extremity ulcers [states she has been apparently evaluated by a senior financial analyst but does not remember the name of the condition that she is suffering from] . She moved [place] from [place] 4 years ago currently retired and living independently by herself all close relatives who has a close friend here at [place]. Patient was brought to EMS after fall. Patient is a daily EtOH drinker. Had a scotch last night to bed, woke up in the morning went to the restroom, when getting off of commode fell on the floor. Patient does not remember any preceding events prior to the fall but he states that she remember falling and landing on the floor did not lose consciousness however when trying to get up she felt severe pain in her left shoulder as a result remained on the floor for almost 2 hours, she kept yelling for help until a neighbor heard her and EMS was called. She also has an unsteady gait due to chronic plaque psoriasis, nonhealing noninfectious multiple ulcers, left metatarsal amputation due to diabetes complication which may have contributed to her recurrent falls. Patient denies any history of seizure, CVA, arrhythmia. She is complaining of severe left shoulder pain, facial pain, bilateral lower extremity nonhealing ulcers which are itchy and painful. She denies any fever, chills, chest pain, shortness of breath, nausea, vomiting, diarrhea, constipation or any urinary symptoms. Hospital Course Hospital Course: Ms. Maguire is a 72 year old female past medical history of hypertension type 2 diabetes mellitus, right diabetic foot status post first metatarsal amputation , COPD [current every other day smoker, not on home oxygen], PVD, restless leg syndrome, hyperlipidemia, recurrent falls, alcohol abuse, plaque psoriasis, chronic bilateral lower extremity ulcers [states she has been apparently evaluated by a senior financial analyst but does not remember the name of the condition that she is suffering from] who was initially admitted after a fall deemed likely from combination of alcohol intoxication, chronic abnormal gait from a prior right metatarsal amputation and dehydration. Patient did NOT have syncope. She sustained a closed left nondisplaced humeral fracture for which orthopedics recommended conservative/non-surgical management. Patient was also treated for COPD exacerbation and right sided pneumonia. She was treated with Levaquin, IV steroids and breathing treatments. On day of discharge, she says her breathing has significantly improved and she feels back she is at her baseline. she only had very minimal wheezes but she desaturated to 82% on room air. She was recommended to be on home O2 but she says she has been recommended the same thing in the past but she does NOT want to be on home O2. Discussed this in length with patient including the risks of morbidity and vehemently refused and says she does not want the inconvenience of using home O2. She continues to smoke and is not ready to quit yet. She was also offered home health service but again refused this. She did say she is a DNR/DNI. Discussed palliative care and patient says she will think about palliative care services in the future but not at this time. She denies depressed mood or suicidal ideations. She has plaque psoriasis and is on Enbrel. She has chronic ulcers on both legs which do not appear infected. She says she had biopsy of these lesions before but forgot the diagnosis. She says she follows up with 4 physicians for this including a senior financial analyst, charter coach driver and her PCP. She was also found to have iron deficiency anemia and was started on iron supplements. She will be discharged on Levaquin and short course of prednisone. Physical Exam Vital Signs: Temp Pulse Resp BP Pulse Ox 97.4 F 82 16 120/53 L 92 03/29/18 15:23 03/29/18 15:23 03/29/18 15:23 03/29/18 15:23 03/29/18 15:23 Intake & Output 03/28/18 03/29/18 03/30/18 06:59 06:59 06:59 Intake Total 3088 1361 554 Output Total 1300 1800 200 Balance 1788 -439 354 Weight 167 lb 15.876 oz 164 lb 3.91 oz General appearance: PRESENT: no acute distress, well-developed, well-nourished Head exam: PRESENT: atraumatic, normocephalic Eye exam: PRESENT: conjunctiva pink, EOMI, PERRLA. ABSENT: scleral icterus Ear exam: PRESENT: normal external ear exam Mouth exam: PRESENT: moist, tongue midline Neck exam: ABSENT: carotid bruit, JVD, lymphadenopathy, thyromegaly Respiratory exam: PRESENT: clear to auscultation lauren, wheezes - minimal occasional wheezes. ABSENT: rales, rhonchi Cardiovascular exam: PRESENT: RRR. ABSENT: diastolic murmur, rubs, systolic murmur Pulses: PRESENT: normal dorsalis pedis pul GI/Abdominal exam: PRESENT: normal bowel sounds, soft. ABSENT: distended, guarding, mass, organolmegaly, rebound, tenderness Rectal exam: PRESENT: deferred Extremities exam: PRESENT: other - chronic multiple leg ulcers with no signs of infection, likely related to her psoriasis Neurological exam: PRESENT: alert, awake, oriented to person, oriented to place , oriented to time, oriented to situation, CN II-XII grossly intact. ABSENT: motor sensory deficit Results Laboratory Results: 03/28/18 03:56 03/28/18 03:56 03/29/18 09:34 Iron < 10.1 L TIBC 360 % Saturation UNABLE TO CALCULATE Ferritin 26.50 Vitamin B12 > 1000.0 H Folate 15.80 Impressions: Cervical Spine CT 03/24/18 10:47 IMPRESSION: CHRONIC DEGENERATIVE CHANGES. NO ACUTE FINDINGS. Head CT 03/24/18 10:47 IMPRESSION: CHRONIC CHANGES OF ATROPHY AND MICROVASCULAR ISCHEMIA. NO ACUTE PROCESS. EVIDENCE OF ACUTE STROKE: NO. Shoulder X-Ray 03/24/18 10:47 IMPRESSION: Neer 1 part surgical neck fracture. Chest X-Ray 03/28/18 09:07 IMPRESSION: SLIGHT INCREASE IN AIRSPACE DISEASE IN THE RIGHT LUNG POSSIBLY INDICATING EARLY PNEUMONIA. Qualifiers - * PATIENT BEING DISCHARGED WITH ANY OF THE FOLLOWING DIAGNOSIS: No
== END 2018-03-29 16:43 | disposition home or self-care (01) | DRG 562 ==
LOC: ER 10:20 → EH 14:26 → 3W 17:05
PROVIDERS: ADMIT Emergency Medicine; ATTEND Emergency Medicine
PROC: 3E0F73Z Introduction of Anti-inflammatory into Respiratory Tract, Via Natural or Artificial Opening (ICD-10-PCS; 2018-03-24)
PROC: 5A09457 Assistance with Respiratory Ventilation, 24-96 Consecutive Hours, Continuous Positive Airway Pressure (ICD-10-PCS; principal; 2018-03-25)
PROC: 30233N1 Transfusion of Nonautologous Red Blood Cells into Peripheral Vein, Percutaneous Approach (ICD-10-PCS; 2018-03-25)
DX: S42.212A Unspecified displaced fracture of surgical neck of left humerus, initial encounter for closed fracture (principal); J18.9 Pneumonia, unspecified organism; J96.21 Acute and chronic respiratory failure with hypoxia; J96.22 Acute and chronic respiratory failure with hypercapnia; J44.1 Chronic obstructive pulmonary disease with (acute) exacerbation; J44.0 Chronic obstructive pulmonary disease with (acute) lower respiratory infection; L97.929 Non-pressure chronic ulcer of unspecified part of left lower leg with unspecified severity; L97.919 Non-pressure chronic ulcer of unspecified part of right lower leg with unspecified severity; Z66 Do not resuscitate; I10 Essential (primary) hypertension; E11.51 Type 2 diabetes mellitus with diabetic peripheral angiopathy without gangrene; G25.81 Restless legs syndrome; E78.00 Pure hypercholesterolemia, unspecified; Y90.0 Blood alcohol level of less than 20 mg/100 ml; L40.0 Psoriasis vulgaris; Z60.2 Problems related to living alone; W18.11XA Fall from or off toilet without subsequent striking against object, initial encounter; F10.129 Alcohol abuse with intoxication, unspecified; Y92.012 Bathroom of single-family (private) house as the place of occurrence of the external cause; D50.9 Iron deficiency anemia, unspecified; F32.9 Major depressive disorder, single episode, unspecified; E86.0 Dehydration; E87.5 Hyperkalemia; F17.210 Nicotine dependence, cigarettes, uncomplicated; Z91.81 History of falling; Z88.0 Allergy status to penicillin; Z88.8 Allergy status to other drugs, medicaments and biological substances; Z79.4 Long term (current) use of insulin; Z79.82 Long term (current) use of aspirin; Z89.412 Acquired absence of left great toe; Z79.899 Other long term (current) drug therapy; Z82.49 Family history of ischemic heart disease and other diseases of the circulatory system; Z80.0 Family history of malignant neoplasm of digestive organs; Z81.8 Family history of other mental and behavioral disorders
CPT/HCPCS: 36415; 36430; 36600; 70450; 71045; 71046; 72125; 80048; 80053; 80307; 81001; 82550; 82607; 82728; 82746; 82803; 82962; 83036; 83540; 83550; 83735; 84484; 85025; 85045; 86850; 86900; 86901; 86920; 87040; 93005; 93010; 94640; 94660; 96374; 96375; 99285; G8978-GP; G8979-GP; J0610; J1644; J1815; J1956; J2060; J2270; J2405; J2920; J3420; J3490; J7030; P9016; S0164

== ENCOUNTER 2018-03-31 08:51 | Emergency (ER) | payer MEDICARE, BC, OTHER ==
--- NOTE | 2018-03-31 10:26 | RADIOLOGY REPORT (SQ) ---
EXAM DESCRIPTION: SHOULDER LEFT 2 OR MORE VIEWS COMPLETED DATE/TIME: 03/31/2018 10:10 am REASON FOR STUDY: Shoulder injury injured 03/24/2018 with continued left shoulder pain COMPARISON: None. NUMBER OF VIEWS: Three views. TECHNIQUE: Internal rotation, external rotation, and Y view images acquired of the left shoulder. LIMITATIONS: None. FINDINGS: MINERALIZATION: Grossly normal BONES: Subacute comminuted fracture left humeral head and neck with valgus angulation at the fracture site. A greater tuberosity fracture fragment is present. JOINTS: No glenohumeral dislocation. No acromioclavicular joint widening. VISUALIZED LUNGS AND RIBS: No pneumothorax. No rib fracture. SOFT TISSUES: No radiopaque foreign body. OTHER: No other significant finding. IMPRESSION: Comminuted fracture left humeral head and neck with valgus angulation at the fracture si te. There is a humeral head greater tuberosity fragment present. These findings are similar compare d to 03/24/2018. TECHNICAL DOCUMENTATION: JOB ID: [id number] [employer]- All Rights Reserved Reading location - IP/workstation name: [email or web address]
--- NOTE | 2018-03-31 14:28 | ER Document Report ---
ED Extremity Problem, Upper - General Chief Complaint: Shoulder Pain Stated Complaint: SWOLLEN LEFT ARM Time Seen by Provider: 03/31/18 09:41 Notes: Chief complaint: Left arm swelling History of complain:( obtained from----patient) 72 years old female who had left shoulder, humeral head fracture, subsequently she was admitted to the hospital, she was to be sent to a rehab center. But she signed AGAINST MEDICAL ADVICE went home. Took her sling off for the last 2 days. Presents today with swelling of the left forearm and increased pain over the left shoulder. No fall since then. She is also smokes as well as drinks alcoholic drinks. Unpredictable behaviors Onset: As above Duration: As above Severity: Moderate to severe Quality: Sharp Context: As described above Exacerbating factor and relieving factors: Any movements. REVIEW OF SYSTEMS: CONSTITUTIONAL : Denies fever, chills, or sweats. Denies recent illness. EENT: Denies eye, ear, throat, or mouth pain or symptoms. Denies nasal or sinus congestion or discharge. Denies throat, tongue, or mouth swelling or difficulty swallowing. CARDIOVASCULAR: Denies chest pain. Denies palpitations or racing or irregular heart beat. Denies ankle edema. RESPIRATORY: Denies cough, cold, or chest congestion. Denies shortness of breath, difficulty breathing, or wheezing. GASTROINTESTINAL: Denies distention. Denies nausea, vomiting, or diarrhea. Denies blood in vomitus, stools, or per rectum. Denies black, tarry stools. Denies constipation. GENITOURINARY: Denies difficulty urinating, painful urination, burning, frequency, blood in urine, or discharge. FEMALE GENITOURINARY: Denies vaginal bleeding, heavy or abnormal periods, irregular periods. Denies vaginal discharge or odor. MUSCULOSKELETAL: SKIN: Denies rash, lesions or sores. HEMATOLOGIC : Denies easy bruising or bleeding. LYMPHATIC: Denies swollen, enlarged glands. NEUROLOGICAL: Denies confusion or altered mental status. Denies passing out or loss of consciousness. Denies dizziness or lightheadedness. Denies headache. Denies weakness or paralysis or loss of use of either side. Denies problems with gait or speech. Denies sensory loss, numbness, or tingling. Denies seizures. PSYCHIATRIC: Denies anxiety or stress. Denies depression, suicidal ideation, or homicidal ideation. ALL OTHER SYSTEMS REVIEWED AND NEGATIVE. PHYSICAL EXAMINATION: GENERAL: Well-appearing, well-nourished and in mild to moderate acute distress. HEAD: Atraumatic, normocephalic. EYES: Pupils equal round and reactive to light, extraocular movements intact, conjunctiva are normal. ENT: Nares patent, oropharynx clear without exudates. Moist mucous membranes. NECK: Normal range of motion, supple without lymphadenopathy LUNGS: Breath sounds clear to auscultation bilaterally and equal. No wheezes rales or rhonchi. HEART: Regular rate and rhythm without murmurs ABDOMEN: Soft, nontender, nondistended abdomen. No guarding, no rebound. No masses appreciated. Examination of genitals-deferred Musculoskeletal: Left shoulder has swelling and tenderness, left forearm has chronic lymphedema noted. Sensation intact radial pulses are intact. NEUROLOGICAL: Cranial nerves grossly intact. Normal speech, normal gait. Normal sensory, motor exams PSYCH: Normal mood, normal affect. SKIN: Warm, Dry, normal turgor, no rashes or lesions noted. Dictation was performed using [employer] voice recognition software TRAVEL OUTSIDE OF THE [place] 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 - Social History Smoking Status: Current Some Day Smoker Chew tobacco use (# tins/day): No Frequency of alcohol use: Heavy Drug Abuse: None Lives with: Family Family History: Reviewed & Not Pertinent, CAD, Malignancy - Throat cancer, Other - Alzheimer's Patient has suicidal ideation: No Patient has homicidal ideation: No - Past Medical History Cardiac Medical History: Reports: Hx Hypercholesterolemia, Hx Hypertension, Hx Peripheral Vascular Disease Denies: Hx Atrial Fibrillation, Hx Congestive Heart Failure, Hx Pulmonary Embolism Pulmonary Medical History: Reports: Hx Asthma, Hx Bronchitis, Hx COPD Endocrine Medical History: Reports: Hx Diabetes Mellitus Type 1, Hx Diabetes Mellitus Type 2 Renal/ Medical History: Denies: Hx Peritoneal Dialysis Psychiatric Medical History: Reports: Hx Depression Past Surgical History: Reports: Hx Adenoidectomy, Hx Orthopedic Surgery - Patient has had both left and right hip fracture repairs secondary to falls, Hx Tonsillectomy, Other - Cataract, left great toe amputation - Immunizations Hx Diphtheria, Pertussis, Tetanus Vaccination: Yes Hx Pneumococcal Vaccination: 05/24/11 Review of Systems - Review of Systems Notes: Dictated Physical Exam - Vital signs Vitals: Temp Pulse Resp BP Pulse Ox 97.5 F 79 16 154/73 H 96 03/31/18 09:07 03/31/18 09:07 03/31/18 09:07 03/31/18 09:07 03/31/18 09:07 - Notes Notes: Dictated Course - Re-evaluation Re-evalutation: 04/01/18 09:45 Her course was discussed with social science professor, she is working on arranging rehab again for her. - Vital Signs Vital signs: Temp Pulse Resp BP Pulse Ox 97.9 F 76 18 122/65 93 03/31/18 14:28 03/31/18 14:28 03/31/18 14:28 03/31/18 14:28 03/31/18 14:28 - Diagnostic Test Radiology reviewed: Reports reviewed - Repeat shoulder x-ray shows no difference from the old one. Which is fractured humeral head. Discharge - Discharge Clinical Impression: Lymphedema of arm Humeral head fracture Qualifiers: Encounter type: subsequent encounter Fracture type: closed Laterality: left Fracture healing: with nonunion Qualified Code(s): S42.292K - Other displaced fracture of upper end of left humerus, subsequent encounter for fracture with nonunion Condition: Fair Disposition: HOME, SELF-CARE Instructions: Fracture Proximal Humerus Referrals: TIMOTHY THOMPSON NP [Primary Care Provider] - Follow up as needed
[2018-03-31 14:30] VITALS: BP 122/65
== END 2018-03-31 14:30 | disposition home or self-care (01) ==
LOC: ER 08:51
DX: I89.0 Lymphedema, not elsewhere classified (principal); S42.292K Other displaced fracture of upper end of left humerus, subsequent encounter for fracture with nonunion; X58.XXXD Exposure to other specified factors, subsequent encounter; M25.512 Pain in left shoulder; F17.200 Nicotine dependence, unspecified, uncomplicated; Z88.0 Allergy status to penicillin; E78.00 Pure hypercholesterolemia, unspecified; I10 Essential (primary) hypertension; J45.909 Unspecified asthma, uncomplicated; J44.9 Chronic obstructive pulmonary disease, unspecified; E11.9 Type 2 diabetes mellitus without complications
CPT/HCPCS: 99283; 73030; L3650

== ENCOUNTER → 2018-07-29 | Outpatient (CLI) | payer MEDICARE, BC ==
--- NOTE | 2018-07-29 10:08 | RADIOLOGY REPORT (SQ) ---
EXAM DESCRIPTION: CT HEAD WITHOUT COMPLETED DATE/TIME: 07/29/2018 9:19 am REASON FOR STUDY: S09.90XA UNSPECIFIED INJURY OF HEAD, INITIAL ENCOUNTER S09.90XA UNSPECIFIED INJUR Y OF HEAD, INITIAL ENCOUNTER R19.8 OTH SYMPTOMS AND SIGNS INVOLVING THE DGSTV SYS AND ABD COMPARISON: 2018. TECHNIQUE: Axial images acquired through the brain without intravenous contrast. Images reviewed wi th bone, brain and subdural windows. Additional sagittal and coronal reconstructions were generated. Images stored on PACS. All CT scanners at this facility use dose modulation, iterative reconstruction, and/or weight based d osing when appropriate to reduce radiation dose to as low as reasonably achievable (ALARA). [facility]: Dose Right [facility]: CareDose [facility]: Dose Right [facility]: Teradose 4D [facility]: Perk Dynamics RADIATION DOSE: CT Rad equipment meets quality standard of care and radiation dose reduction techniq ues were employed. CTDIvol: 48.6 mGy. DLP: 855 mGy-cm.mGy. LIMITATIONS: None. FINDINGS: VENTRICLES: Prominent. CEREBRUM: No masses. No hemorrhage. No midline shift. Areas of low density in the white matter mos t likely due to chronic micro-vascular ischemic change. No evidence for acute infarction. CEREBELLUM: No masses. No hemorrhage. No alteration of density. No evidence for acute infarction. EXTRAAXIAL SPACES: Age-related involutional change. No fluid collections. No masses. ORBITS AND GLOBE: No intra- or extraconal masses. Normal contour of globe without masses. CALVARIUM: No fracture. PARANASAL SINUSES: No fluid or mucosal thickening. SOFT TISSUES: No mass or hematoma. OTHER: No other significant finding. IMPRESSION: CHRONIC CHANGES OF ATROPHY AND MICROVASCULAR ISCHEMIA. NO ACUTE PROCESS. EVIDENCE OF ACUTE STROKE: NO. TECHNICAL DOCUMENTATION: JOB ID: [id number] Quality ID # [id number]: Final reports with documentation of one or more dose reduction techniques (e.g., Au tomated exposure control, adjustment of the mA and/or kV according to patient size, use of iterative reconstruction technique) 2010 [employer]- All Rights Reserved Reading location - IP/workstation name: [email or web address]
--- NOTE | 2018-07-29 12:14 | RADIOLOGY REPORT (SQ) ---
EXAM DESCRIPTION: U/S ABDOMEN COMPLETE W/O DOP COMPLETED DATE/TIME: 07/29/2018 10:11 am REASON FOR STUDY: R19.8 OTH SYMPTOMS AND SIGNS INVOLVING THE DGSTV SYS AND ABDOMEN S09.90XA UNSPECI FIED INJURY OF HEAD, INITIAL ENCOUNTER R19.8 OTH SYMPTOMS AND SIGNS INVOLVING THE DGSTV SYS AND ABD COMPARISON: 05/18/2017 TECHNIQUE: Dynamic and static grayscale images acquired of the abdomen and recorded on PACS. Additio nal selected color Doppler and spectral images recorded. Note: Study does not meet criteria for complete doppler/duplex scan LIMITATIONS: None. FINDINGS: PANCREAS: No mass. Pancreatic duct is prominent at 4 mm. LIVER: No masses. Echotexture normal. LIVER VASCULATURE: Normal directional flow of the main portal vein and hepatic veins. GALLBLADDER: No stones. Normal wall thickness. No pericholecystic fluid. ULTRASOUND-DETECTED PERALTA'S SIGN: Negative. INTRAHEPATIC DUCTS AND COMMON DUCT: CBD and intrahepatic ducts normal caliber. No filling defects. INFERIOR VENA CAVA: Patent. AORTA: No aneurysm. RIGHT KIDNEY: Normal size, 10.6 cm. Normal echogenicity. No solid masses. Small upper pole cyst . No hydronephrosis. No calcifications. LEFT KIDNEY: Normal size, 11.1 cm. Normal echogenicity. No solid masses. There are upper pole a nd lower pole cysts. The upper pole cyst measures 4.6 cm. The lower pole cyst measures 5.2 cm. No hydronephrosis. No calcifications. SPLEEN: Normal size, 9.7 cm. No solid masses. PERITONEAL AND PLEURAL SPACES: No ascites or effusions. OTHER: No other significant finding. IMPRESSION: Prominent pancreatic duct. No pancreatic mass is appreciated. Renal cysts. No other s ignificant findings. TECHNICAL DOCUMENTATION: JOB ID: [id number] [employer]- All Rights Reserved Reading location - IP/workstation name: [email or web address]
== END ==
LOC: RAD 08:55
PROVIDERS: ATTEND Internal Medicine
DX: S09.90XA Unspecified injury of head, initial encounter (principal); M81.0 Age-related osteoporosis without current pathological fracture; R19.8 Other specified symptoms and signs involving the digestive system and abdomen
CPT/HCPCS: 70450; 76700

== ENCOUNTER 2018-08-23 03:25 | Inpatient (IN) | payer MEDICARE, BC, OTHER ==
[2018-08-23 03:59] LABS: ABSOLUTE BASOPHILS # (AUTO) 0.1 10^3/uL (0.0-0.2); ABSOLUTE EOSINOPHILS # (AUTO) 0.3 10^3/uL (0.0-0.6); ABSOLUTE LYMPHOCYTES (AUTO) 1.8 10^3/uL (0.5-4.7); ABSOLUTE MONOCYTES (AUTO) 0.8 10^3/uL (0.1-1.4); ABSOLUTE NEUT (AUTO) 9.5 10^3/uL (1.7-8.2); BASOPHILS % (AUTO) 0.7 % (0-2); EOSINOPHILS % (AUTO) 2.6 % (0-6); HEMATOCRIT 30.8 % (36.0-47.0); HEMOGLOBIN 9.7 g/dL (12.0-15.5); LYMPHOCYTES % (AUTO) 14.6 % (13-45); MEAN CORPUSCULAR HGB CONC 31.4 g/dL (32.0-36.0); MEAN CORPUSCULAR VOLUME 83 fl (80-97); MONOCYTES % (AUTO) 6.5 % (3-13); PLATELET COUNT 441 10^3/uL (150-450); RED BLOOD COUNT 3.72 10^6/uL (3.72-5.28); RED CELL DISTRIBUTION WIDTH 17.3 % (11.5-14.0); SEGMENTED NEUTROPHILS % (AUTO) 75.6 % (42-78); TOTAL CELLS COUNTED % (AUTO) 100 %; WHITE BLOOD COUNT 12.5 10^3/uL (4.0-10.5)
[2018-08-23 04:12] LABS: ALANINE AMINOTRANSFERASE 26 U/L (9-52); ALBUMIN 3.5 g/dL (3.5-5.0); ALKALINE PHOSPHATASE 104 U/L (38-126); ANION GAP 9 (5-19); ASPARTATE AMINO TRANSFERASE 31 U/L (14-36); BILIRUBIN,DIRECT 0.5 mg/dL (0.0-0.4); BILIRUBIN,TOTAL 0.7 mg/dL (0.2-1.3); BLOOD UREA NITROGEN 17 mg/dL (7-20); CARBON DIOXIDE 28 mmol/L (22-30); CHLORIDE 101 mmol/L (98-107); CREATINE KINASE 181 U/L (30-135); GLUCOSE 238 mg/dL (75-110); SODIUM 137.6 mmol/L (137-145); TOTAL PROTEIN 6.6 g/dL (6.3-8.2)
[2018-08-23 04:26] LABS: TROPONIN I < 0.012 ng/mL
--- NOTE | 2018-08-23 05:10 | RADIOLOGY REPORT (SQ) ---
EXAM DESCRIPTION: XR CHEST 1 VIEW COMPLETED DATE/TME: 08/23/2018 03:49 CLINICAL HISTORY: SOB COMPARISON: 03/28/2018 FINDINGS: Single frontal view of the chest. Leads overlie the chest. The cardiomediastinal silhouette has normal size and contour. Minimal right basilar patchy opacities. No pneumothorax or large effusion. No displaced rib fractures identified. Upper abdominal soft tissues are unremarkable. IMPRESSION: 1. Minimal patchy right basilar opacities may represent pneumonia or atelectasis. Continued radiographic follow-up to resolution recommended.
[2018-08-23] MEDS ORDERED: LEVOFLOXACIN 750 MG/D5W RTU 750 MG/150 ML RTUPB IV ONE (05:16)
[2018-08-23] MEDS ORDERED: RINGERS SOLUTION,LACTATED 500 ML IV ONE (05:18)
[2018-08-23] MEDS ORDERED: ALBUTEROL SULFATE 0.083% NEB 2.5 MG/3 ML AMPUL NEB ONE (05:18)
[2018-08-23] MEDS: MAGNESIUM SULFATE/D5W 1 GM/100 ML RTUPB IV SCH ×2 (05:45→06:12)
[2018-08-23] MEDS ORDERED: DEXTROSE 50%-WATER 25 GM/50 ML DISP.SYRIN IV PRN ×2 (05:54)
[2018-08-23] MEDS ORDERED: IPRATROPIUM/ALBUTEROL 0.5-2.5 MG/3 ML AMPUL NEB PRN (05:54)
[2018-08-23] MEDS ORDERED: GLUCAGON,HUMAN RECOMB 1 MG INJ IM PRN (05:54)
[2018-08-23] MEDS ORDERED: DEXTROSE 40% GEL 15 GM TUBE PO PRN ×2 (05:54)
[2018-08-23] MEDS ORDERED: FLUTICASONE NASAL SPRAY 50 MCG/SPRY 120 SPRAY/16 GM NASL ONE (07:00)
--- NOTE | 2018-08-23 07:26 | PDOC H&P ---
History of Present Illness Admission Date/PCP: 08/23/18 07:10 BARBARA LANTIGUA MD Patient complains of: Shortness of breath and fever History of Present Illness: VIVEK MAGUIRE is a 72 year old female with a past medical history of insulin dependent diabetes, hypertension, severe lymphedema with stasis, chronic bronchitis, COPD, alcohol and tobacco dependence. Over the past 36 hours patient is developed a nonproductive cough, shortness of breath and fever prompting evaluation emergency room where she is found to have hypoxia of 80% on room air, tachypnea, use of accessory muscles right lower lobe infiltrate and leukocytosis. She started on empiric antibiotics, supplemental oxygen albuterol and Atrovent then referred to the hospitalist for admission. She denies chest pain palpitations nausea vomiting Past Medical History Cardiac Medical History: Reports: Hyperlipidema, Hypertension, Peripheral Vascular Disease Denies: Atrial Fibrillation, Congestive Heart Failure, Pulmonary Embolism Pulmonary Medical History: Reports: Asthma, Bronchitis, Chronic Obstructive Pulmonary Disease (COPD) Endocrine Medical History: Reports: Diabetes Mellitus Type 1, Diabetes Mellitus Type 2 Psychiatric Medical History: Reports: Depression Hematology: Denies: Bleeding Tendencies Past Surgical History Past Surgical History: Reports: Adenoidectomy, Orthopedic Surgery - Patient has had both left and right hip fracture repairs secondary to falls, Tonsillectomy, Other - Cataract, left great toe amputation Social History Information Source: Patient Lives with: Alone Smoking Status: Current Every Day Smoker Frequency of Alcohol Use: Heavy Hx Recreational Drug Use: No Drugs: None Hx Prescription Drug Abuse: No - Advance Directive Resuscitation Status: Full Code Family History Family History: Reviewed & Not Pertinent, CAD, Malignancy, Other Parental Family History Reviewed: Yes Children Family History Reviewed: Yes Sibling(s) Family History Reviewed.: Yes Medication/Allergy Home Medications: Albuterol Sulfate [Proair HFA] 1 puff IH Q4HP PRN 03/24/18 Aspirin/Acetaminophen/Caffeine [Excedrin Extra Strength Caplet] 2 tab PO Q6HP PRN 03/24/18 Atorvastatin Calcium [Lipitor 10 mg Tablet] 10 mg PO QHS 03/24/18 Cholecalciferol (Vitamin D3) [Vitamin D3 5000 unit Capsule] 5,000 unit PO DAILY 03/24/18 Diltiazem HCl [Cartia Xt] 240 mg PO DAILY 03/24/18 Folic Acid [Folvite 1 mg Tablet] 1 mg PO DAILY 03/24/18 Hydralazine HCl [Apresoline 50 mg Tablet] 50 mg PO TID 03/24/18 Insulin Glargine,Hum.rec.anlog [Lantus Solostar] 30 units SQ QAM 03/24/18 Insulin Glargine,Hum.rec.anlog [Lantus Solostar] 40 units SQ QPM 03/24/18 Metformin HCl [Glucophage XR 500 mg Tablet] 1,000 mg PO BID 03/24/18 Pramipexole Di-HCl [Mirapex ER] 3.75 mg PO QPM 03/24/18 Pregabalin [Lyrica 100 mg Capsule] 100 mg PO QPM 03/24/18 Spironolactone [Aldactone 100 mg Tablet] 100 mg PO DAILY 03/24/18 Tiotropium [place] [Spiriva Handihaler 18 mcg/dose (30 Dose)] 18 mcg IH DAILY 03/24/18 Venlafaxine HCl [Effexor Xr] 150 mg PO DAILY 03/24/18 Ferrous Sulfate [Feosol 325 mg Tablet] 325 mg PO DAILY 1 Days #60 tablet 03/29/18 Allergies/Adverse Reactions: valsartan [From Diovan] Allergy (Unknown, Verified 03/31/18 08:53) Penicillins Allergy (Verified 03/31/18 08:53) exenatide [From Byetta] Adverse Reaction (Severe, Verified 03/31/18 08:53) Migraine quetiapine [From Seroquel] Adverse Reaction (Verified 08/23/18 03:32) insomnia topiramate [From Topamax] Adverse Reaction (Verified 08/23/18 03:33) vision changes Review of Systems Constitutional: PRESENT: as per HPI, chills, fatigue, fever(s), weakness Eyes: ABSENT: visual disturbances Ears: ABSENT: hearing changes Cardiovascular: PRESENT: as per HPI, dyspnea on exertion. ABSENT: chest pain, edema, orthropnea, palpitations Respiratory: PRESENT: as per HPI, cough, dyspnea. ABSENT: sputum Gastrointestinal: ABSENT: abdominal pain, constipation, diarrhea, hematemesis, hematochezia, nausea, vomiting Genitourinary: ABSENT: dysuria, hematuria Musculoskeletal: ABSENT: joint swelling Integumentary: ABSENT: rash, wounds Neurological: ABSENT: abnormal gait, abnormal speech, confusion, dizziness, focal weakness, syncope Psychiatric: ABSENT: anxiety, depression, homidical ideation, suicidal ideation Endocrine: ABSENT: cold intolerance, heat intolerance, polydipsia, polyuria Hematologic/Lymphatic: ABSENT: easy bleeding, easy bruising Physical Exam Vital Signs: Temp Pulse Resp BP Pulse Ox 97.9 F 22 H 153/77 H 95 08/23/18 03:49 08/23/18 05:01 08/23/18 05:00 08/23/18 05:01 Intake & Output 08/21/18 08/22/18 08/23/18 11:59 11:59 11:59 Intake Total 200 Balance 200 Weight 63.1 kg General appearance: PRESENT: cooperative, disheveled, mild distress, well- developed Head exam: PRESENT: atraumatic, normocephalic Eye exam: PRESENT: conjunctiva pink, EOMI, PERRLA. ABSENT: scleral icterus Ear exam: PRESENT: normal external ear exam Mouth exam: PRESENT: moist, tongue midline Neck exam: ABSENT: carotid bruit, JVD, lymphadenopathy, thyromegaly Respiratory exam: PRESENT: accessory muscle use, crackles, rales, retraction, rhonchi, symmetrical, tachypnea Cardiovascular exam: PRESENT: RRR. ABSENT: diastolic murmur, rubs, systolic murmur Pulses: PRESENT: normal dorsalis pedis pul Vascular exam: PRESENT: normal capillary refill GI/Abdominal exam: PRESENT: normal bowel sounds, soft. ABSENT: distended, guarding, mass, organolmegaly, rebound, tenderness Rectal exam: PRESENT: deferred Extremities exam: PRESENT: full ROM, tenderness, +1 edema, other - Posterior aspect of the left lower leg with 1 cm ulcer with purulent discharge. ABSENT: calf tenderness, clubbing, pedal edema Neurological exam: PRESENT: alert, awake, oriented to person, oriented to place, oriented to time, oriented to situation, CN II-XII grossly intact. ABSENT: motor sensory deficit Psychiatric exam: PRESENT: appropriate affect, normal mood. ABSENT: homicidal ideation, suicidal ideation Skin exam: PRESENT: dry, erythema, other - Widespread severe hyperkeratosis bilateral lower extremity.. ABSENT: abrasion, cyanosis, intact Results Laboratory Results: 08/23/18 03:38 08/23/18 03:38 08/23/18 08/23/18 03:38 03:38 WBC 12.5 H RBC 3.72 Hgb 9.7 L Hct 30.8 L MCV 83 MCH 26.0 L MCHC 31.4 L RDW 17.3 H Plt Count 441 Seg Neutrophils % 75.6 Lymphocytes % 14.6 Monocytes % 6.5 Eosinophils % 2.6 Basophils % 0.7 Absolute Neutrophils 9.5 H Absolute Lymphocytes 1.8 Absolute Monocytes 0.8 Absolute Eosinophils 0.3 Absolute Basophils 0.1 Sodium 137.6 Potassium 5.0 Chloride 101 Carbon Dioxide 28 Anion Gap 9 BUN 17 Creatinine 1.17 Est GFR ( Amer) 55 L Est GFR (Non-Af Amer) 45 L Glucose 238 H Calcium 9.0 Total Bilirubin 0.7 AST 31 ALT 26 Alkaline Phosphatase 104 Total Protein 6.6 Albumin 3.5 08/23/18 08/23/18 03:38 03:38 Creatine Kinase 181 H CK-MB (CK-2) 3.60 Troponin I < 0.012 Impressions: Chest X-Ray 08/23/18 03:49 IMPRESSION: 1. Minimal patchy right basilar opacities may represent pneumonia or atelectasis. Continued radiographic follow-up to resolution recommended. Assessment and Plan - Diagnosis (1) Pneumonia Is this a current diagnosis for this admission?: Yes Plan: Pneumonia care set deployed, incentive spirometry, flutter valve, supplemental oxygen, albuterol and Atrovent. Follow-up CBC and blood culture (2) Acute on chronic respiratory failure with hypoxemia Is this a current diagnosis for this admission?: Yes Plan: Aggressive pulmonary toilet, Xopenex and Atrovent (3) Alcohol use disorder Is this a current diagnosis for this admission?: Yes Plan: Thiamine and folate, Ativan as needed unclear history of withdrawal (4) Continuous tobacco abuse Is this a current diagnosis for this admission?: Yes Plan: Tobacco Dependence patient received tobacco cessation counseling and offered nicotine replacement options (5) Diabetes mellitus Is this a current diagnosis for this admission?: Yes Plan: Home regiment with Humalog sliding scale. Follow-up A1c (6) Diabetic leg ulcer Is this a current diagnosis for this admission?: Yes Plan: Comp gated by poorly controlled diabetes, lymphedema, peripheral vascular disease with severe hyperkeratosis follow-up surgical consult - Time Time Spent with patient: 35 or more minutes - Inpatient Certification Medical Necessity: Need Close Monitoring Due to Risk of Patient Decompensation
--- NOTE | 2018-08-23 07:30 | ER Document Report ---
ED General - General Chief Complaint: Shortness Of Breath Stated Complaint: DIFFICULTY BREATHING Time Seen by Provider: 08/23/18 04:30 Notes: Patient is a 72-year-old female with past medical history of COPD without oxygen dependency, frailty at baseline, presents with increased shortness of breath, cough and sputum production. States that her symptoms are moderate to severe in nature, started gradually, have been worsening over the past several days. Nothing seems to improve or worsen her symptoms. Has been using home nebulizers without improvement. Has not seen her primary doctor regarding today's concerns. States this does feel somewhat similar to when she has had pneumonia in the past. She states that she has been minimally smoking over the last several weeks partially due to her symptoms. She denies any chest pain, has not had fever. Denies vomiting or diarrhea. TRAVEL OUTSIDE OF THE [place] IN LAST 30 DAYS: No - Related Data Allergies/Adverse Reactions: valsartan [From Diovan] Allergy (Unknown, Verified 03/31/18 08:53) Penicillins Allergy (Verified 03/31/18 08:53) exenatide [From Byetta] Adverse Reaction (Severe, Verified 03/31/18 08:53) Migraine quetiapine [From Seroquel] Adverse Reaction (Verified 08/23/18 03:32) insomnia topiramate [From Topamax] Adverse Reaction (Verified 08/23/18 03:33) vision changes Past Medical History - General Information source: Patient - Social History Smoking Status: Current Every Day Smoker Frequency of alcohol use: daily Drug Abuse: None Lives with: Alone Family History: Reviewed & Not Pertinent, CAD, Malignancy, Other Patient has suicidal ideation: No Patient has homicidal ideation: No - Past Medical History Cardiac Medical History: Reports: Hx Hypercholesterolemia, Hx Hypertension, Hx Peripheral Vascular Disease Denies: Hx Atrial Fibrillation, Hx Congestive Heart Failure, Hx Pulmonary Embolism Pulmonary Medical History: Reports: Hx Asthma, Hx Bronchitis, Hx COPD Endocrine Medical History: Reports: Hx Diabetes Mellitus Type 1, Hx Diabetes Mellitus Type 2 Renal/ Medical History: Denies: Hx Peritoneal Dialysis Psychiatric Medical History: Reports: Hx Depression Past Surgical History: Reports: Hx Adenoidectomy, Hx Orthopedic Surgery - Patient has had both left and right hip fracture repairs secondary to falls, Hx Tonsillectomy, Other - Cataract, left great toe amputation - Immunizations Hx Diphtheria, Pertussis, Tetanus Vaccination: Yes Hx Pneumococcal Vaccination: 05/24/11 Review of Systems - Review of Systems Notes: Constitutional: Negative for fever. HENT: Negative for sore throat. Eyes: Negative for visual changes. Cardiovascular: Negative for chest pain. Respiratory: Positive for shortness of breath. Gastrointestinal: Negative for abdominal pain, vomiting or diarrhea. Genitourinary: Negative for dysuria. Musculoskeletal: Negative for back pain. Skin: Negative for rash. Neurological: Negative for headaches, weakness or numbness. 10 point ROS negative except as marked above and in HPI. Physical Exam - Vital signs Vitals: Resp Pulse Ox 24 H 96 08/23/18 03:36 08/23/18 03:36 Interpretation: Hypoxic, Tachypneic Notes: PHYSICAL EXAMINATION: GENERAL: Frail, elderly female in no acute distress HEAD: Atraumatic, normocephalic. EYES: Pupils equal round and reactive to light, extraocular movements intact, sclera anicteric, conjunctiva are normal. ENT: nares patent, oropharynx clear without exudates. Moderately dry mucous membranes. NECK: Normal range of motion, supple without lymphadenopathy LUNGS: Coarse expiratory wheezing in all lung garrison with diminished air movemen t throughout. Mild respiratory effort increased. No overt distress. HEART: Regular rate and rhythm without murmurs ABDOMEN: Soft, nontender, normoactive bowel sounds. No guarding, no rebound. No masses appreciated. EXTREMITIES: Normal range of motion, 1-2+ pitting edema in the bilateral lower extremities that is equal trach no cyanosis. NEUROLOGICAL: No focal neurological deficits. Moves all extremities spontaneously and on command. PSYCH: Normal mood, normal affect. SKIN: Warm, Dry, normal turgor, scattered skin abrasions of the bilateral lower extremities Course - Re-evaluation Re-evalutation: Patient presents with a COPD exacerbation with associated hypoxemia without baseline oxygen dependency. The patient was treated with magnesium, steroids, [id number] nebulizers although she did have some improvement in her work of breathing she was unable to alleviate her oxygen dependency. Patient is frail, minimally mobile at baseline. Chest x-ray supports possible right lower lobe pneumonia. I did discuss this patient with the hospitalist Dr. Zheng given her hypoxemia who has accepted the patient for admission. - Vital Signs Vital signs: Temp Pulse Resp BP Pulse Ox 97.9 F 92 12 137/66 H 100 08/26/18 03:47 08/25/18 18:05 08/25/18 18:05 08/25/18 18:05 08/25/18 19:05 - Laboratory Result Diagrams: 08/25/18 06:23 08/25/18 06:23 Laboratory results interpreted by me: 08/23/18 08/23/18 08/23/18 03:38 03:38 03:38 WBC 12.5 H Hgb 9.7 L Hct 30.8 L MCH 26.0 L MCHC 31.4 L RDW 17.3 H Absolute Neutrophils 9.5 H Est GFR ( Amer) 55 L Est GFR (Non-Af Amer) 45 L Glucose 238 H Hemoglobin A1c % Iron 24.7 L Direct Bilirubin 0.5 H Creatine Kinase 181 H 08/23/18 03:38 WBC Hgb Hct MCH MCHC RDW Absolute Neutrophils Est GFR ( Amer) Est GFR (Non-Af Amer) Glucose Hemoglobin A1c % 10.8 H Iron Direct Bilirubin Creatine Kinase - Diagnostic Test Radiology reviewed: Image reviewed, Reports reviewed Radiology results interpreted by me: 08/26/18 04:11 Chest x-ray: Right lower lobe infiltrate Discharge - Discharge Clinical Impression: COPD exacerbation, Acute respiratory failure with hypoxia, Tobacco abuse Right lower lobe pneumonia Qualifiers: Pneumonia type: due to unspecified organism Qualified Code(s): J18.1 - Lobar pneumonia, unspecified organism Condition: Fair Disposition: ADMITTED INPATIENT Admitting Provider: Hospitalist Unit Admitted: Telemetry
--- NOTE | 2018-08-23 07:51 | EKG REPORT ---
SEVERITY:- BORDERLINE ECG - SINUS TACHYCARDIA LOW VOLTAGE IN FRONTAL LEADS BORDERLINE R WAVE PROGRESSION, ANTERIOR LEADS : Confirmed by: Isma Cohen MD 23-Aug-2018 07:50:50
[2018-08-23 07:57] LABS: ABSOLUTE RETICS # 0.079 10^6/uL (0.028-0.122); RETICULOCYTE COUNT (AUTO) 2.12 % (0.66-2.85)
[2018-08-23 07:58] LABS: IRON(TIBC) 24.7 ug/dL (37-170)
[2018-08-23] MEDS ORDERED: INSULIN GLARGINE,HUM.REC.ANLOG 1,000 UNIT/10 ML VIAL SUBCUT SCH (08:00)
[2018-08-23] MEDS ORDERED: INSULIN GLARGINE,HUM.REC.ANLOG 1,000 UNIT/10 ML VIAL (PYX) SUBCUT SCH ×2 (08:00→18:00)
[2018-08-23] MEDS: IPRATROPIUM BROMIDE 0.02% NEB 0.5 MG/2.5 ML AMPUL NEB SCH ×3 (08:07→19:36)
[2018-08-23] MEDS: LEVALBUTEROL HCL NEB 1.25 MG/3 ML AMPUL NEB SCH ×3 (08:07→19:36)
[2018-08-23] MEDS: CEFTRIAXONE 1 GM/D5W RTU 1 GM/50 ML RTUPB IV SCH (08:25)
[2018-08-23] MEDS ORDERED: INSULIN LISPRO 100 UNIT/ML 3 ML VIAL SUBCUT ONE ×3 (08:49→16:45)
[2018-08-23] MEDS: INSULIN LISPRO 100 UNIT/ML 3 ML VIAL SUBCUT SCH ×3 (09:01→16:45)
[2018-08-23] MEDS ORDERED: FOLIC ACID 1 MG TABLET PO SCH (10:00)
[2018-08-23] MEDS: DILTIAZEM HCL 240 MG CAPSULE.CR PO SCH (10:34)
[2018-08-23] MEDS: HYDRALAZINE HCL 50 MG TABLET PO SCH ×3 (10:35→18:55)
[2018-08-23] MEDS: FOLIC ACID 1 MG TABLET PO SCH (10:35)
[2018-08-23] MEDS: NICOTINE 7 MG/24 HR PATCH.TD24 TD SCH ×3 (10:35→11:14)
[2018-08-23] MEDS: VENLAFAXINE HCL 75 MG CAP.SR.24H PO SCH (10:35)
[2018-08-23] MEDS: THIAMINE HCL 100 MG TABLET PO SCH (10:35)
[2018-08-23] MEDS: AZITHROMYCIN 500 MG in DEXTROSE 5%-WATER 250 ML IV SCH (10:36)
[2018-08-23] MEDS: LORAZEPAM 0.5 MG TABLET PO PRN ×3 (12:20→23:18)
[2018-08-23] MEDS ORDERED: ONDANSETRON 4 MG TAB.RAPDIS PO PRN (16:34)
[2018-08-23] MEDS ORDERED: ACETAMINOPHEN 325 MG TABLET PO PRN (16:34)
[2018-08-23] MEDS: HEPARIN SOD (PORCINE) 5,000 UNIT/ML 1 ML SYRINGE SUBCUT SCH ×2 (16:46→22:20)
--- NOTE | 2018-08-23 18:01 | PDOC CONSULTATION ---
Consultation Consult Date: 08/23/18 Consult reason:: venous stasis ulcers History of Present Illness Admission Date/PCP: 08/23/18 07:10 BARBARA LANTIGUA MD History of Present Illness: VIVEK MAGUIRE is a 72 year old female admitted for pneumonia has been followed for venous stasis ulcers in surgical wound clinic. missed last couple of appoints for unna boots now admitted for pneumonai has not been wearing the unna boots Past Medical History Cardiac Medical History: Reports: Hyperlipidema, Hypertension, Peripheral Vascular Disease Denies: Atrial Fibrillation, Congestive Heart Failure, Pulmonary Embolism Pulmonary Medical History: Reports: Asthma, Bronchitis, Chronic Obstructive Pulmonary Disease (COPD) Endocrine Medical History: Reports: Diabetes Mellitus Type 1, Diabetes Mellitus Type 2 Psychiatric Medical History: Reports: Depression Hematology: Denies: Bleeding Tendencies Past Surgical History Past Surgical History: Reports: Adenoidectomy, Orthopedic Surgery - Patient has had both left and right hip fracture repairs secondary to falls, Tonsillectomy, Other - Cataract, left great toe amputation Social History Lives with: Alone Smoking Status: Current Every Day Smoker Frequency of Alcohol Use: Heavy Hx Recreational Drug Use: No Drugs: None Hx Prescription Drug Abuse: No - Advance Directive Resuscitation Status: Full Code Family History Family History: Reviewed & Not Pertinent, CAD, Malignancy, Other Parental Family History Reviewed: No Children Family History Reviewed: NA Sibling(s) Family History Reviewed.: NA Medication/Allergy Home Medications: Albuterol Sulfate [Proair HFA] 1 puff IH Q4HP PRN 03/24/18 Aspirin/Acetaminophen/Caffeine [Excedrin Extra Strength Caplet] 2 tab PO Q6HP PRN 03/24/18 Atorvastatin Calcium [Lipitor 10 mg Tablet] 10 mg PO QHS 03/24/18 Cholecalciferol (Vitamin D3) [Vitamin D3 5000 unit Capsule] 5,000 unit PO DAILY 03/24/18 Diltiazem HCl [Cartia Xt] 240 mg PO DAILY 03/24/18 Folic Acid [Folvite 1 mg Tablet] 1 mg PO DAILY 03/24/18 Hydralazine HCl [Apresoline 50 mg Tablet] 50 mg PO TID 03/24/18 Insulin Glargine,Hum.rec.anlog [Lantus Solostar] 30 units SQ QAM 03/24/18 Insulin Glargine,Hum.rec.anlog [Lantus Solostar] 40 units SQ QPM 03/24/18 Metformin HCl [Glucophage XR 500 mg Tablet] 1,000 mg PO BID 03/24/18 Pramipexole Di-HCl [Mirapex ER] 3.75 mg PO QPM 03/24/18 Pregabalin [Lyrica 100 mg Capsule] 100 mg PO QPM 03/24/18 Spironolactone [Aldactone 100 mg Tablet] 100 mg PO DAILY 03/24/18 Tiotropium [place] [Spiriva Handihaler 18 mcg/dose (30 Dose)] 18 mcg IH DAILY 03/24/18 Venlafaxine HCl [Effexor Xr] 150 mg PO DAILY 03/24/18 Ferrous Sulfate [Feosol 325 mg Tablet] 325 mg PO DAILY 1 Days #60 tablet 03/29/18 Allergies/Adverse Reactions: valsartan [From Diovan] Allergy (Unknown, Verified 03/31/18 08:53) Penicillins Allergy (Verified 03/31/18 08:53) exenatide [From Byetta] Adverse Reaction (Severe, Verified 03/31/18 08:53) Migraine quetiapine [From Seroquel] Adverse Reaction (Verified 08/23/18 03:32) insomnia topiramate [From Topamax] Adverse Reaction (Verified 08/23/18 03:33) vision changes Review of Systems Constitutional: PRESENT: fatigue Ears: PRESENT: as per HPI - no hearing difficulty Nose, Mouth, and Throat: PRESENT: other - no c/o sore throat Breasts: PRESENT: other - no masses Cardiovascular: PRESENT: dyspnea on exertion, other - no chest pain, + dyspnea on exertion Respiratory: PRESENT: cough Gastrointestinal: PRESENT: other - no c/o abd pain, masses or bloating Genitourinary: PRESENT: other - no dysuria Integumentary: PRESENT: other - rashes on upper extermities bilat. macular dry rash has note it for years rash and dry skin on lower extrmitis iwth swelling treatted with unna boots Neurological: PRESENT: other - insomina Endocrine: PRESENT: other - no cold or heat intolerance Hematologic/Lymphatic: PRESENT: other - no easy brusing Physical Exam Vital Signs: Temp Pulse Resp BP Pulse Ox 97.6 F 85 20 135/67 H 92 08/23/18 11:16 08/23/18 14:17 08/23/18 14:17 08/23/18 11:16 08/23/18 14:17 Intake & Output 08/22/18 08/23/18 08/24/18 06:59 06:59 06:59 Intake Total 200 1155 Balance 200 1155 Weight 63.1 kg General appearance: PRESENT: no acute distress Head exam: PRESENT: atraumatic Eye exam: PRESENT: conjunctival injection Mouth exam: PRESENT: moist Neck exam: PRESENT: full ROM Respiratory exam: PRESENT: rhonchi, wheezes Cardiovascular exam: PRESENT: RRR Pulses: PRESENT: +1 pedal pulses bilateral Vascular exam: PRESENT: normal capillary refill GI/Abdominal exam: PRESENT: soft Rectal exam: PRESENT: deferred Extremities exam: PRESENT: other - bilat venous stasis ulcers both lower extremities, with psoriasis Neurological exam: PRESENT: alert, awake, oriented to person, oriented to place, oriented to time, oriented to situation Psychiatric exam: PRESENT: appropriate affect Skin exam: PRESENT: rash - psoriatic rash both upper extemities, Results Laboratory Results: 08/23/18 03:38 08/23/18 03:38 08/23/18 08/23/18 08/23/18 03:38 03:38 03:38 WBC 12.5 H RBC 3.72 Hgb 9.7 L Hct 30.8 L MCV 83 MCH 26.0 L MCHC 31.4 L RDW 17.3 H Plt Count 441 Seg Neutrophils % 75.6 Lymphocytes % 14.6 Monocytes % 6.5 Eosinophils % 2.6 Basophils % 0.7 Absolute Neutrophils 9.5 H Absolute Lymphocytes 1.8 Absolute Monocytes 0.8 Absolute Eosinophils 0.3 Absolute Basophils 0.1 Retic Count (auto) 2.12 Absolute Retic 0.079 Sodium 137.6 Potassium 5.0 Chloride 101 Carbon Dioxide 28 Anion Gap 9 BUN 17 Creatinine 1.17 Est GFR ( Amer) 55 L Est GFR (Non-Af Amer) 45 L Glucose 238 H Calcium 9.0 Iron TIBC % Saturation Ferritin Total Bilirubin 0.7 AST 31 ALT 26 Alkaline Phosphatase 104 Total Protein 6.6 Albumin 3.5 Vitamin B12 Folate 08/23/18 03:38 WBC RBC Hgb Hct MCV MCH MCHC RDW Plt Count Seg Neutrophils % Lymphocytes % Monocytes % Eosinophils % Basophils % Absolute Neutrophils Absolute Lymphocytes Absolute Monocytes Absolute Eosinophils Absolute Basophils Retic Count (auto) Absolute Retic Sodium Potassium Chloride Carbon Dioxide Anion Gap BUN Creatinine Est GFR ( Amer) Est GFR (Non-Af Amer) Glucose Calcium Iron 24.7 L TIBC 347 % Saturation 7 Ferritin 12.00 Total Bilirubin AST ALT Alkaline Phosphatase Total Protein Albumin Vitamin B12 770.0 Folate 19.60 08/23/18 08/23/18 03:38 03:38 Creatine Kinase 181 H CK-MB (CK-2) 3.60 Troponin I < 0.012 Impressions: Chest X-Ray 08/23/18 03:49 IMPRESSION: 1. Minimal patchy right basilar opacities may represent pneumonia or atelectasis. Continued radiographic follow-up to resolution recommended. Assessment & Plan - Plan Summary Plan Summary: pt is followed in wound clinic she has an appoint on wednesday08/26/18 will plan on unna boot wrap to be placed today and removed on wednesday in surgery clinic if pt still here on wednesday, please reconsult surgeon for replacment.
--- NOTE | 2018-08-23 21:05 | Progress Note ---
Provider Note Provider Note: The patient's serum glucose/Accu-Cheks have been running quite high today. She was consistently given more than the sliding scale requirement of Humalog. I did visit with the patient this evening. She reports that she has not been consistent with her medication regimen. Her hemoglobin A1c was greater than 10 and this supports poor compliance and lack of control. In addition her antibiotic therapy is in dextrose solution and the acute illness certainly will increase her sugars. Will make some adjustments in her medication regimen. I have resumed her metformin as well.
[2018-08-23] MEDS: FLUTICASONE NASAL SPRAY 50 MCG/SPRY 120 SPRAY/16 GM NASL SCH (22:20)
[2018-08-23] MEDS: ATORVASTATIN CALCIUM 10 MG TABLET PO SCH (22:20)
[2018-08-24] MEDS: IPRATROPIUM BROMIDE 0.02% NEB 0.5 MG/2.5 ML AMPUL NEB SCH ×5 (01:38→23:45)
[2018-08-24] MEDS: LEVALBUTEROL HCL NEB 1.25 MG/3 ML AMPUL NEB SCH ×4 (01:38→23:45)
[2018-08-24] MEDS: HEPARIN SOD (PORCINE) 5,000 UNIT/ML 1 ML SYRINGE SUBCUT SCH ×3 (05:59→22:01)
[2018-08-24 06:53] LABS: ABSOLUTE LYMPHOCYTES (AUTO) 1.6 10^3/uL (0.5-4.7); ABSOLUTE MONOCYTES (AUTO) 0.7 10^3/uL (0.1-1.4); ABSOLUTE NEUT (AUTO) 13.7 10^3/uL (1.7-8.2); BASOPHILS % (AUTO) 0.1 % (0-2); HEMATOCRIT 24.7 % (36.0-47.0); LYMPHOCYTES % (AUTO) 9.9 % (13-45); MEAN CORPUSCULAR HEMOGLOBIN 25.7 pg (27.0-33.4); MEAN CORPUSCULAR HGB CONC 31.4 g/dL (32.0-36.0); MEAN CORPUSCULAR VOLUME 82 fl (80-97); MONOCYTES % (AUTO) 4.3 % (3-13); PLATELET COUNT 367 10^3/uL (150-450); RED BLOOD COUNT 3.02 10^6/uL (3.72-5.28); RED CELL DISTRIBUTION WIDTH 16.9 % (11.5-14.0); SEGMENTED NEUTROPHILS % (AUTO) 85.7 % (42-78); TOTAL CELLS COUNTED % (AUTO) 100 %
[2018-08-24 06:56] LABS: HEMOGLOBIN 7.8 g/dL (12.0-15.5)
[2018-08-24 07:07] LABS: ANION GAP 6 (5-19); BLOOD UREA NITROGEN 30 mg/dL (7-20); CALCIUM 8.5 mg/dL (8.4-10.2); CARBON DIOXIDE 29 mmol/L (22-30); CHLORIDE 101 mmol/L (98-107); SODIUM 136.3 mmol/L (137-145)
[2018-08-24 07:14] LABS: GLUCOSE 58 mg/dL (75-110)
[2018-08-24] MEDS: INSULIN LISPRO 100 UNIT/ML 3 ML VIAL SUBCUT SCH ×3 (08:07→16:54)
[2018-08-24] MEDS: METFORMIN HCL 500 MG TABLET PO SCH ×2 (08:38→16:40)
[2018-08-24] MEDS: AZITHROMYCIN 500 MG in DEXTROSE 5%-WATER 250 ML IV SCH (08:39)
[2018-08-24] MEDS: CEFTRIAXONE 1 GM/D5W RTU 1 GM/50 ML RTUPB IV SCH (08:39)
[2018-08-24] MEDS ORDERED: INSULIN GLARGINE,HUM.REC.ANLOG 1,000 UNIT/10 ML VIAL SUBCUT SCH (10:00)
[2018-08-24] MEDS ORDERED: INSULIN GLARGINE,HUM.REC.ANLOG 1,000 UNIT/10 ML VIAL (PYX) SUBCUT SCH (10:00)
[2018-08-24] MEDS ORDERED: (PENDING PHARMACY ID) (Spironolactone [Aldactone 100 Mg Tablet] 100 MG) PO SCH (10:00)
[2018-08-24] MEDS: HYDRALAZINE HCL 50 MG TABLET PO SCH (10:22)
[2018-08-24] MEDS ORDERED: ALBUTEROL SULFATE 0.083% NEB 2.5 MG/3 ML AMPUL NEB PRN (10:26)
[2018-08-24] MEDS: DILTIAZEM HCL 180 MG CAPSULE.CR PO SCH (11:07)
[2018-08-24] MEDS: SPIRONOLACTONE 25 MG TABLET PO SCH (11:07)
[2018-08-24] MEDS: FERROUS SULFATE 325 MG TABLET PO SCH (11:08)
[2018-08-24] MEDS: THIAMINE HCL 100 MG TABLET PO SCH (11:08)
[2018-08-24] MEDS: NICOTINE 7 MG/24 HR PATCH.TD24 TD SCH (11:08)
[2018-08-24] MEDS: VENLAFAXINE HCL 75 MG CAP.SR.24H PO SCH (11:08)
[2018-08-24] MEDS: FOLIC ACID 1 MG TABLET PO SCH (11:08)
[2018-08-24] MEDS: LORAZEPAM 0.5 MG TABLET PO PRN ×2 (11:08→22:01)
[2018-08-24] MEDS: FLUTICASONE NASAL SPRAY 50 MCG/SPRY 120 SPRAY/16 GM NASL SCH ×2 (11:09→22:02)
--- NOTE | 2018-08-24 11:11 | PDOC PROGRESS REPORT ---
Subjective Progress Note for:: 08/24/18 - seen on rounds this morning Subjective:: states she feels fine- wants to know when she can go home. per friend was in the room and she was fine with discussing her care infront of him. she denies chest pain, abdominal pain, n/v or dizziness. discussed about care plan and lik lona the need to stay for 2-3 more days for her COPD exacerbation and pneumonia Reason For Visit: COPD EXACERBATION PNEUMONIA,DM,LEFT DM LUNG ULCER Physical Exam Vital Signs: Temp Pulse Resp BP Pulse Ox 97.9 F 71 20 116/59 L 97 08/23/18 20:29 08/24/18 08:29 08/24/18 08:29 08/23/18 20:29 08/24/18 08:29 Intake & Output 08/23/18 08/24/18 08/25/18 06:59 06:59 06:59 Intake Total 200 1619 575 Balance 200 1619 575 Weight 139 lb 1.787 oz 168 lb 3.403 oz General appearance: PRESENT: no acute distress Head exam: PRESENT: atraumatic, normocephalic Eye exam: PRESENT: EOMI, PERRLA. ABSENT: scleral icterus Ear exam: PRESENT: normal external ear exam Mouth exam: PRESENT: moist, tongue midline Neck exam: ABSENT: tracheal deviation - severely diminish breath sounds bilaterally Respiratory exam: PRESENT: decreased breath sounds, symmetrical, wheezes - expiratory wheezing bilaterally, other - conversational dyspnea, some retractions Cardiovascular exam: PRESENT: +S1, +S2 GI/Abdominal exam: PRESENT: normal bowel sounds, soft. ABSENT: tenderness Extremities exam: PRESENT: other - b/l LE with wrapping noted- unable to palpate pulses- she has sensation distally of the toes Neurological exam: PRESENT: alert, awake, oriented to person, oriented to place, oriented to time, oriented to situation, CN II-XII grossly intact Skin exam: PRESENT: dry, warm Results Laboratory Results: 08/24/18 06:18 08/24/18 06:18 08/24/18 08/24/18 06:18 06:18 WBC 16.0 H RBC 3.02 L Hgb 7.8 L Hct 24.7 L MCV 82 MCH 25.7 L MCHC 31.4 L RDW 16.9 H Plt Count 367 Seg Neutrophils % 85.7 H Lymphocytes % 9.9 L Monocytes % 4.3 Eosinophils % 0.0 Basophils % 0.1 Absolute Neutrophils 13.7 H Absolute Lymphocytes 1.6 Absolute Monocytes 0.7 Absolute Eosinophils 0.0 Absolute Basophils 0.0 Sodium 136.3 L Potassium 5.0 Chloride 101 Carbon Dioxide 29 Anion Gap 6 BUN 30 H Creatinine 1.36 H Est GFR ( Amer) 46 L Est GFR (Non-Af Amer) 38 L Glucose 58 L Calcium 8.5 08/23/18 08/23/18 03:38 03:38 Creatine Kinase 181 H CK-MB (CK-2) 3.60 Troponin I < 0.012 Impressions: Chest X-Ray 08/23/18 03:49 IMPRESSION: 1. Minimal patchy right basilar opacities may represent pneumonia or atelectasis. Continued radiographic follow-up to resolution recommended. Assessment and Plan - Diagnosis (1) Acute respiratory failure with hypoxia Is this a current diagnosis for this admission?: Yes (2) COPD exacerbation Is this a current diagnosis for this admission?: Yes (3) Right lower lobe pneumonia Qualifiers: Pneumonia type: due to unspecified organism Qualified Code(s): J18.1 - Lobar pneumonia, unspecified organism Is this a current diagnosis for this admission?: Yes (5) Diabetic leg ulcer Is this a current diagnosis for this admission?: Yes (6) Restless leg syndrome Is this a current diagnosis for this admission?: Yes (7) Type 2 diabetes mellitus with hyperglycemia Qualifiers: Diabetes mellitus intermodal customer service insulin use: with fpc use Qualified Code(s): E11.65 - Type 2 diabetes mellitus with hyperglycemia; Z79.4 - [facility] (current) use of insulin Is this a current diagnosis for this admission?: Yes (8) Hyperlipidemia Qualifiers: Hyperlipidemia type: unspecified Qualified Code(s): E78.5 - Hyperlipidemia, unspecified Is this a current diagnosis for this admission?: Yes (9) Hypertension Qualifiers: Hypertension type: essential hypertension Qualified Code(s): I10 - Essential (primary) hypertension Is this a current diagnosis for this admission?: Yes - Plan Summary Plan Summary: Acute respiratory failure w/ hypoxia- likely 2/2 COPD exacerbation and RLL PNA. see plans below for each. COPD exacerbation- i have adjusted her medications- xopenex Q8h, atrovent Q6H, albuterol Q2h PRN, and PEP therapy. aggressive pulm hygiene. unable to give solumedrol due to uncontrolled DM and her glucose as been very erratic at this time. c/w IV Abx. she's still smoking at home, she's requiring 3L O2 via NC now. i am not sure bad her COPD is- will get an ABG this morning to check her baseline PCO2. i am not sure why she's not on any maintenance inhalers at home- i advised her to f/u with materials branch chief after discharge. RLL PNA- not clear if this really PNA vs atelectasis- started on IV Rocephin and Azithromycin- if she remains afebrile - will consider stopping rocephin and finishing 5 days of azithro. c/w pulm hygiene HTN- BP on the soft side today- will hold hydralazine 50mg TId home med. also i have lowered her Cardizem CD 240-->180mg for now. DM type 2- A1c >10, uncontrolled. yesterday her glucose was >400 but today her glucose is <100- will adjust lantus to 25u BID. at home she's on Lantus 30u QAM and 40u QPM. c/w SSI. will increase Lantus as needed. Restarted on metformin yesterday. HLD- c/w statin tobacco abuse- counseled patient on cessation- state she's still smoking 5cigs/day. was smoking 2ppd before. DM leg ulcers- surgery consulted regarding venous stasis ulcers- appreciate assistance- plan is for her to f/u with outpatient wound clinic. we will need to re-consult surgery by wednesday per their note if patient is still here in the hospital for Unna boot. please see surgery consult note.
[2018-08-24 11:41] LABS: ARTERIAL BLOOD BASE EXCESS 2.7 mmol/L; ARTERIAL BLOOD H2CO3 1.81 mmol/L (1.05-1.35); ARTERIAL BLOOD HCO3 29.7 mmol/L (20-24); ARTERIAL BLOOD O2 SATURATION 92.1 % (94-98); ARTERIAL BLOOD PH 7.31 (7.35-7.45); ARTERIAL BLOOD PO2 69.8 mmHg (80-100); ARTERIAL BLOOD TOTAL CO2 31.6 mmol/L (21-25)
[2018-08-24 11:42] LABS: ARTERIAL BLOOD FIO2 36%
[2018-08-24] MEDS ORDERED: IPRATROPIUM/ALBUTEROL 0.5-2.5 MG/3 ML AMPUL NEB SCH (12:00)
[2018-08-24 13:07] LABS: ABSOLUTE LYMPHOCYTES (AUTO) 1.7 10^3/uL (0.5-4.7); ABSOLUTE MONOCYTES (AUTO) 0.9 10^3/uL (0.1-1.4); ABSOLUTE NEUT (AUTO) 15.1 10^3/uL (1.7-8.2); BASOPHILS % (AUTO) 0.2 % (0-2); EOSINOPHILS % (AUTO) 0.1 % (0-6); HEMATOCRIT 25.3 % (36.0-47.0); LYMPHOCYTES % (AUTO) 9.7 % (13-45); MEAN CORPUSCULAR HGB CONC 31.7 g/dL (32.0-36.0); MEAN CORPUSCULAR VOLUME 82 fl (80-97); PLATELET COUNT 389 10^3/uL (150-450); RED BLOOD COUNT 3.08 10^6/uL (3.72-5.28); RED CELL DISTRIBUTION WIDTH 16.7 % (11.5-14.0); TOTAL CELLS COUNTED % (AUTO) 100 %; WHITE BLOOD COUNT 17.8 10^3/uL (4.0-10.5)
[2018-08-24] MEDS: PREGABALIN 100 MG CAPSULE PO SCH (18:47)
[2018-08-24] MEDS: ATORVASTATIN CALCIUM 10 MG TABLET PO SCH (22:01)
[2018-08-24] MEDS: INSULIN GLARGINE,HUM.REC.ANLOG 1,000 UNIT/10 ML VIAL SUBCUT SCH (22:02)
[2018-08-25] MEDS: LORAZEPAM 0.5 MG TABLET PO PRN (06:25)
[2018-08-25] MEDS: HEPARIN SOD (PORCINE) 5,000 UNIT/ML 1 ML SYRINGE SUBCUT SCH ×2 (06:25→13:07)
[2018-08-25 06:38] LABS: ABSOLUTE BASOPHILS # (AUTO) 0.1 10^3/uL (0.0-0.2); ABSOLUTE EOSINOPHILS # (AUTO) 0.2 10^3/uL (0.0-0.6); ABSOLUTE LYMPHOCYTES (AUTO) 1.4 10^3/uL (0.5-4.7); ABSOLUTE MONOCYTES (AUTO) 1.1 10^3/uL (0.1-1.4); ABSOLUTE NEUT (AUTO) 14.1 10^3/uL (1.7-8.2); BASOPHILS % (AUTO) 0.3 % (0-2); EOSINOPHILS % (AUTO) 0.9 % (0-6); HEMATOCRIT 29.3 % (36.0-47.0); HEMOGLOBIN 8.9 g/dL (12.0-15.5); LYMPHOCYTES % (AUTO) 8.3 % (13-45); MEAN CORPUSCULAR HEMOGLOBIN 25.3 pg (27.0-33.4); MEAN CORPUSCULAR HGB CONC 30.5 g/dL (32.0-36.0); MEAN CORPUSCULAR VOLUME 83 fl (80-97); MONOCYTES % (AUTO) 6.5 % (3-13); PLATELET COUNT 498 10^3/uL (150-450); RED BLOOD COUNT 3.53 10^6/uL (3.72-5.28); RED CELL DISTRIBUTION WIDTH 16.9 % (11.5-14.0); TOTAL CELLS COUNTED % (AUTO) 100 %; WHITE BLOOD COUNT 16.8 10^3/uL (4.0-10.5)
[2018-08-25 07:03] LABS: ANION GAP 8 (5-19); BLOOD UREA NITROGEN 32 mg/dL (7-20); CALCIUM 8.8 mg/dL (8.4-10.2); CARBON DIOXIDE 26 mmol/L (22-30); CHLORIDE 103 mmol/L (98-107); GLUCOSE 83 mg/dL (75-110); POTASSIUM 5.4 mmol/L (3.6-5.0)
[2018-08-25] MEDS: DILTIAZEM HCL 240 MG CAPSULE.CR PO SCH (07:32)
[2018-08-25] MEDS: LEVALBUTEROL HCL NEB 1.25 MG/3 ML AMPUL NEB SCH ×2 (07:54→15:43)
[2018-08-25] MEDS: IPRATROPIUM BROMIDE 0.02% NEB 0.5 MG/2.5 ML AMPUL NEB SCH ×2 (07:54→15:43)
[2018-08-25] MEDS: CEFTRIAXONE 1 GM/D5W RTU 1 GM/50 ML RTUPB IV SCH (08:18)
[2018-08-25] MEDS: METFORMIN HCL 500 MG TABLET PO SCH ×3 (08:19→16:49)
[2018-08-25] MEDS: AZITHROMYCIN 250 MG TABLET PO SCH ×2 (08:20→13:57)
[2018-08-25] MEDS: INSULIN LISPRO 100 UNIT/ML 3 ML VIAL SUBCUT SCH ×3 (08:20→16:49)
[2018-08-25] MEDS: DILTIAZEM HCL 180 MG CAPSULE.CR PO SCH ×2 (09:59→13:57)
[2018-08-25] MEDS: FOLIC ACID 1 MG TABLET PO SCH ×2 (10:00→13:58)
[2018-08-25] MEDS: SPIRONOLACTONE 25 MG TABLET PO SCH ×2 (10:00→13:57)
[2018-08-25] MEDS: VENLAFAXINE HCL 75 MG CAP.SR.24H PO SCH ×2 (10:01→13:57)
[2018-08-25] MEDS: FERROUS SULFATE 325 MG TABLET PO SCH ×2 (10:01→13:58)
[2018-08-25] MEDS: NICOTINE 7 MG/24 HR PATCH.TD24 TD SCH (10:02)
[2018-08-25] MEDS: INSULIN GLARGINE,HUM.REC.ANLOG 1,000 UNIT/10 ML VIAL SUBCUT SCH (10:03)
[2018-08-25] MEDS: FLUTICASONE NASAL SPRAY 50 MCG/SPRY 120 SPRAY/16 GM NASL SCH (10:03)
[2018-08-25] MEDS: THIAMINE HCL 100 MG TABLET PO SCH ×2 (10:11→13:59)
[2018-08-25] MEDS ORDERED: NORMAL SALINE 1000 ML 1,000 ML IV ONE (14:16)
[2018-08-25] MEDS ORDERED: NORMAL SALINE 1000 ML 1,000 ML IV PRN (14:16)
[2018-08-25 14:55] LABS: ARTERIAL BLOOD BASE EXCESS 0.2 mmol/L; ARTERIAL BLOOD FIO2 6L; ARTERIAL BLOOD H2CO3 2.02 mmol/L (1.05-1.35); ARTERIAL BLOOD HCO3 28.3 mmol/L (20-24); ARTERIAL BLOOD O2 SATURATION 91.5 % (94-98); ARTERIAL BLOOD PCO2 67.2 mmHg (35-45); ARTERIAL BLOOD PH 7.24 (7.35-7.45); ARTERIAL BLOOD PO2 72.9 mmHg (80-100); ARTERIAL BLOOD TOTAL CO2 30.4 mmol/L (21-25)
[2018-08-25] MEDS ORDERED: LORAZEPAM INJ 2 MG/1 ML VIAL IV PRN (16:15)
[2018-08-25] MEDS ORDERED: DIAZEPAM 5 MG TABLET PO SCH (16:30)
[2018-08-25] MEDS ORDERED: LEVALBUTEROL HCL NEB 1.25 MG/3 ML AMPUL NEB PRN (16:44)
--- NOTE | 2018-08-25 16:50 | PDOC PROGRESS REPORT ---
Addendum entered and electronically signed by VIVEK MARTEL NP 08/25/18 16:51: Provider Note Provider Note: CREATININE INCREASED FROM 1.1-->1.5. PATIENT DOES NOT HAVE A HX OF KIDNEY DISEASE. NURSING STAFF STATES THE PATIENT HAS NOT BEEN EATING OR DRINKING. ARK LIKELY RELATED TO DEHYDRATION. PLAN FOR 1L IVF BOLUS NOW. CONTINUOUS IVF AND BANANA BAG QHS. Original Note: Subjective Progress Note for:: 08/25/18 Subjective:: VIVEK MAGUIRE is a 72 year old female with a past medical history of insulin dependent diabetes, hypertension, severe lymphedema with stasis, chronic bronchitis, COPD, alcohol and tobacco dependence. Over the past 36 hours patient is developed a nonproductive cough, shortness of breath. Admitted to h ospitalist service for COPD exacerbation. The patient was seen this afternoon on rounds, she is resting in bed on supplemental oxygen. She is very lethargic, minimally responsive. Her speech is difficult to understand, she falls asleep during the interview. Vital signs have been WNL, no evidence of hypoxia on pulse oximetry. Lung sounds relatively clear, diminished in bilateral bases. Nursing staff reports the patient received 1 dose of Ativan 0.5 mg p.o. this morning at 0630 for agitation, likely related to EtOH withdrawal. The patient states she drinks approximately 6 hard liquor cocktails per day. Stat ABG reveals hypoxic/hypercapnic respiratory acidosis (pH 7.24 CO2 67). Plan to place patient on BiPAP and upgraded to IMCU. Reason For Visit: COPD EXACERBATION PNEUMONIA,DM,LEFT DM LUNG ULCER Physical Exam Vital Signs: Temp Pulse Resp BP Pulse Ox 97.6 F 89 20 131/66 H 93 08/25/18 11:27 08/25/18 11:27 08/25/18 11:27 08/25/18 11:27 08/25/18 11:27 Intake & Output 08/24/18 08/25/18 08/26/18 06:59 06:59 06:59 Intake Total 1612008 50 Balance 1612008 50 Weight 76.3 kg 76.1 kg Results Laboratory Results: 08/25/18 06:23 08/25/18 06:23 08/25/18 08/25/18 06:23 06:23 WBC 16.8 H RBC 3.53 L Hgb 8.9 L Hct 29.3 L MCV 83 MCH 25.3 L MCHC 30.5 L RDW 16.9 H Plt Count 498 H Seg Neutrophils % 84.0 H Lymphocytes % 8.3 L Monocytes % 6.5 Eosinophils % 0.9 Basophils % 0.3 Absolute Neutrophils 14.1 H Absolute Lymphocytes 1.4 Absolute Monocytes 1.1 Absolute Eosinophils 0.2 Absolute Basophils 0.1 Sodium 137.0 Potassium 5.4 H Chloride 103 Carbon Dioxide 26 Anion Gap 8 BUN 32 H Creatinine 1.51 H Est GFR ( Amer) 41 L Est GFR (Non-Af Amer) 34 L Glucose 83 Calcium 8.8 08/23/18 08/23/18 03:38 03:38 Creatine Kinase 181 H CK-MB (CK-2) 3.60 Troponin I < 0.012 Impressions: Chest X-Ray 08/23/18 03:49 IMPRESSION: 1. Minimal patchy right basilar opacities may represent pneumonia or atelectasis. Continued radiographic follow-up to resolution recommended. Assessment and Plan - Diagnosis (1) Acute respiratory failure with hypoxia Is this a current diagnosis for this admission?: Yes Plan: Worsening Secondary to COPD exacerbation stemming from pneumonia Patient very lethargic and minimally responsive today ABG demonstrates hypoxic and hypercarbic respiratory acidosis PRN and scheduled nebulizer treatments Empiric antibiotic coverage Supplemental oxygen for SPO2>88% Plan for BiPAP today Follow-up ABG tonight Upgrade to IMCU (2) Pneumonia Qualifiers: Laterality: left Lung location: lower lobe of lung Is this a current diagnosis for this admission?: Yes Plan: As seen on CXR Azithromycin and ceftriaxone for community-acquired pneumonia Supplemental O2 for SPO2>88% Plan for BiPAP today, follow-up ABG tonight (3) Alcohol use disorder Is this a current diagnosis for this admission?: Yes Plan: Patient admits to drinking 6 hard alcohol drinks per day Scotch mixed with juice or soda As needed IV Ativan for agitation/EtOH withdrawal Scheduled Valium p.o. Once patient is more alert, plan to administer 1oz whiskey TID with meals (4) Continuous tobacco abuse Is this a current diagnosis for this admission?: Yes Plan: Patient admits to smoking 2-3 cigarettes/day Counseled patient about tobacco cessation Offer nicotine patch (5) Diabetes mellitus Is this a current diagnosis for this admission?: Yes Plan: Poor compliance Hemoglobin A1c 10% Accu-Cheleah BENÍTEZ Humalog sliding scale insulin (6) Diabetic leg ulcer Is this a current diagnosis for this admission?: Yes Plan: Lymphedema, peripheral vascular disease, severe hyperkeratosis Surgery consulted Recommend bilateral Unna boots Placed yesterday by Dr. Nava - Time Time Spent with patient: 15-24 minutes Medications reviewed and adjusted accordingly: Yes Anticipated discharge: Home - Inpatient Certification Based on my medical assessment, after consideration of the patient's comorbidities, presenting symptoms, or acuity I expect that the services needed warrant INPATIENT care.: Yes I certify that my determination is in accordance with my understanding of Medicare's requirements for reasonable and necessary INPATIENT services [42 CFR 412.3e].: Yes Medical Necessity: Risk of Complication if Not Cared For in Hospital
[2018-08-25] MEDS ORDERED: METHYLPREDNISOLONE INJ 125 MG/2 ML SDV IV ONE (17:00)
[2018-08-25 17:28] LABS: ARTERIAL BLOOD BASE EXCESS -0.5 mmol/L; ARTERIAL BLOOD H2CO3 2.25 mmol/L (1.05-1.35); ARTERIAL BLOOD HCO3 28.5 mmol/L (20-24); ARTERIAL BLOOD O2 SATURATION 96.9 % (94-98); ARTERIAL BLOOD PO2 112.2 mmHg (80-100); ARTERIAL BLOOD TOTAL CO2 30.8 mmol/L (21-25)
[2018-08-25 17:33] LABS: ARTERIAL BLOOD FIO2 60%
[2018-08-25 17:34] LABS: ARTERIAL BLOOD PCO2 74.9 mmHg (35-45)
[2018-08-25] MEDS: NORMAL SALINE 1000 ML 1,000 ML with MAGNESIUM SULFATE 8 MEQ, THIAMINE HCL 100 MG, MVI, ... IV SCH ×4 (17:41)
[2018-08-25] MEDS: PREGABALIN 100 MG CAPSULE PO SCH (17:50)
[2018-08-25] MEDS ORDERED: PHARMACY COMMUNICATION ORDER MC NR (18:30)
[2018-08-25] MEDS ORDERED: ACETAMINOPHEN SOLN 325 MG/10.15 ML UDCUP NG PRN (18:31)
[2018-08-25] MEDS ORDERED: ONDANSETRON 4 MG TAB.RAPDIS NG PRN (18:34)
--- NOTE | 2018-08-25 18:39 | Progress Note ---
Provider Note Provider Note: 08/25/2018-patient is transferred from fifth floor to [facility] at this evening around 530 for respiratory distress. ABG was done 20 minutes after placing the BiPAP shows pH of 7.2 PCO2 74.6 PO2 of 112, bicarb of 24.8 on 60% oxygen. On examination patient is drowsy lethargic. Chest bilateral entry was severely decreased. Bilateral crackles and crepitations are present. Patient is tachypneic. Plan to intubate the patient and transfer the patient to ICU for further management. And to put a NG tube and give medications via NG tube. Post intubation chest x-ray is ordered. Be going to do the post intubation ABGs also was the patient moved to the ICU. Overall prognosis poor condition is critical.
[2018-08-25] MEDS ORDERED: PROPOFOL 1,000 MG/100 ML INFUS..BTL IV ONE (18:50)
[2018-08-25] MEDS: PROPOFOL 1,000 MG/100 ML INFUS..BTL IV PRN (18:50)
[2018-08-25] MEDS ORDERED: PROPOFOL INJ 200 MG/20 ML VIAL IV ONE (18:59)
[2018-08-25] MEDS: IPRATROPIUM/ALBUTEROL 0.5-2.5 MG/3 ML AMPUL NEB SCH (20:01)
[2018-08-25] MEDS: LORAZEPAM 24 MG/ D5W 240 ML IV PRN (20:20)
[2018-08-25] MEDS ORDERED: SUCCINYLCHOLINE CHLORIDE INJ 200 MG/10 ML VIAL ONE (21:16)
--- NOTE | 2018-08-25 22:03 | RADIOLOGY REPORT (SQ) ---
EXAM DESCRIPTION: XR CHEST 1 VIEW COMPLETED DATE/TME: 08/25/2018 00:00 CLINICAL HISTORY: 72 years, Female, Verify ET and NG placement COMPARISON: 08/23/2018 chest NUMBER OF VIEWS: 1 TECHNIQUE: Portable chest LIMITATIONS: None. FINDINGS: Heart is enlarged but stable. Slight worsening of interstitial changes bilaterally as well as new airspace opacities in the lateral right upper lobe and right lung base. No pneumothorax. Interval intubation and placement of an enteric tube. Tip of the endotracheal tube approximately 5.3 cm above the tram. IMPRESSION: Worsening airspace opacities in the right upper lobe and right lung base with prominent interstitial changes as well. Interval intubation. Placement of an enteric tube. copyright 2010 [employer]- All Rights Reserved
[2018-08-25 23:16] LABS: ARTERIAL BLOOD BASE EXCESS -0.7 mmol/L; ARTERIAL BLOOD H2CO3 1.58 mmol/L (1.05-1.35); ARTERIAL BLOOD HCO3 25.8 mmol/L (20-24); ARTERIAL BLOOD O2 SATURATION 96.2 % (94-98); ARTERIAL BLOOD PCO2 52.4 mmHg (35-45); ARTERIAL BLOOD PH 7.31 (7.35-7.45); ARTERIAL BLOOD PO2 91.9 mmHg (80-100); ARTERIAL BLOOD TOTAL CO2 27.4 mmol/L (21-25)
[2018-08-25 23:53] LABS: ARTERIAL BLOOD FIO2 60%
[2018-08-26] MEDS: ATORVASTATIN CALCIUM 10 MG TABLET NG SCH ×2 (00:14→21:27)
[2018-08-26] MEDS: DIAZEPAM 5 MG TABLET NG SCH ×4 (00:14→18:05)
[2018-08-26] MEDS: DILTIAZEM HCL 60 MG TABLET NG SCH ×4 (00:15→21:26)
[2018-08-26] MEDS: HEPARIN SOD (PORCINE) 5,000 UNIT/ML 1 ML SYRINGE SUBCUT SCH ×4 (00:15→21:39)
[2018-08-26] MEDS ORDERED: INSULIN GLARGINE,HUM.REC.ANLOG 1,000 UNIT/10 ML VIAL (PYX) SUBCUT ONE (00:15)
[2018-08-26] MEDS: VENLAFAXINE HCL 75 MG TABLET NG SCH ×3 (00:15→21:26)
[2018-08-26] MEDS: FLUTICASONE NASAL SPRAY 50 MCG/SPRY 120 SPRAY/16 GM NASL SCH ×3 (00:16→21:22)
[2018-08-26] MEDS: INSULIN GLARGINE,HUM.REC.ANLOG 1,000 UNIT/10 ML VIAL SUBCUT SCH ×3 (00:20→21:39)
[2018-08-26] MEDS: PROPOFOL 1,000 MG/100 ML INFUS..BTL IV PRN ×3 (01:12→18:05)
[2018-08-26] MEDS: LORAZEPAM 24 MG/ D5W 240 ML IV PRN ×3 (01:40→15:37)
[2018-08-26] MEDS: IPRATROPIUM/ALBUTEROL 0.5-2.5 MG/3 ML AMPUL NEB SCH ×4 (04:27→20:22)
[2018-08-26 05:29] LABS: ARTERIAL BLOOD BASE EXCESS -1.2 mmol/L; ARTERIAL BLOOD H2CO3 1.19 mmol/L (1.05-1.35); ARTERIAL BLOOD HCO3 23.6 mmol/L (20-24); ARTERIAL BLOOD O2 SATURATION 97.5 % (94-98); ARTERIAL BLOOD PCO2 39.5 mmHg (35-45); ARTERIAL BLOOD PH 7.39 (7.35-7.45); ARTERIAL BLOOD PO2 99.4 mmHg (80-100); ARTERIAL BLOOD TOTAL CO2 24.8 mmol/L (21-25)
[2018-08-26 05:30] LABS: ARTERIAL BLOOD FIO2 60%
--- NOTE | 2018-08-26 07:10 | RADIOLOGY REPORT (SQ) ---
EXAM DESCRIPTION: X-ray single view chest. CLINICAL HISTORY: 72 years Female, VENT/ETT TUBE COMPARISON: 08/25/2018 and 08/23/2018 TECHNIQUE: Single portable x-ray view of the chest performed on 08/26/2018 at 6:12 AM FINDINGS: The lungs are well expanded. The patient is slightly rotated towards the left. There is mild diffuse opacification of the right hemithorax and moderate opacification of the left inferior hemithorax similar when compared to the prior studies. The appearance of the left lung base may be related to leftward rotation of the patient. There is no evidence of a pneumothorax. The cardiac silhouette is stable and is mildly prominent. The mediastinal contours are normal. No acute osseous abnormality is identified. No focal soft tissue abnormalities are seen. Lines and tubes: The endotracheal tube and feeding tube are grossly stable. IMPRESSION: 1. Ongoing mild diffuse opacification of the right hemithorax and left inferior hemithorax without significant interval change when compared to the most recent study. The appearance of the left lung base may be due to leftward rotation of the patient. 2. Grossly stable life support lines and tubes.
--- NOTE | 2018-08-26 08:18 | PDOC PROGRESS REPORT ---
Subjective Progress Note for:: 08/26/18 Subjective:: 72 year old female with a past medical history of insulin dependent diabetes, hypertension, severe lymphedema with stasis, chronic bronchitis, COPD, alcohol and tobacco dependence. Over the past 36 hours patient is developed a nonproductive cough, shortness of breath. Admitted to hospitalist service for COPD exacerbation. The patient was seen this afternoon on rounds, she is resting in bed on supplemental oxygen. She is very lethargic, minimally responsive. Her speech is difficult to understand, she falls asleep during the interview. Vital signs have been WNL, no evidence of hypoxia on pulse oximetry. Lung sounds relatively clear, diminished in bilateral bases. Nursing staff reports the patient received 1 dose of Ativan 0.5 mg p.o. this morning at 0630 for agitation, likely related to EtOH withdrawal. The patient states she drinks approximately 6 hard liquor cocktails per day. Stat ABG reveals hypoxic/hypercapnic respiratory acidosis (pH 7.24 CO2 67). Plan to place patient on BiPAP and upgraded to IMCU. [id number]-old female has abnormal ABG yesterday evening and she has a difficulty in breathing become tachypneic tachycardic the ABG was abnormal on BiPAP so she was intubated and transferred to ICU. No acute events since last night. Today's labs are pending. Chest x-ray shows bilateral opacification in the right hemithorax and left hemithorax. Currently patient is on propofol 35 mg and 8140 mg/h for sedation and she is on SIMV with rate of 20 PEEP of 5 oxygen saturation of 60% tidal volume of 500 ABG done this morning shows pH of 7.39/PCO2 39.5/PO2 99 bicarb is 23.6. Plan is to decrease oxygen requirements today. And also decrease the sedation today. Reason For Visit: COPD EXACERBATION PNEUMONIA,DM,LEFT DM LUNG ULCER Physical Exam Vital Signs: Temp Pulse Resp BP Pulse Ox 97.9 F 83 20 137/66 H 98 08/26/18 05:28 08/26/18 04:25 08/26/18 04:25 08/25/18 18:05 08/26/18 04:25 Intake & Output 08/25/18 08/26/18 08/27/18 06:59 06:59 06:59 Intake Total 2009 1375 Output Total 835 Balance 2008 540 Weight 76.1 kg 76 kg General appearance: PRESENT: thin, other - Patient was intubated under sedation. Head exam: PRESENT: atraumatic Eye exam: PRESENT: PERRLA Mouth exam: PRESENT: moist, tongue midline Neck exam: ABSENT: carotid bruit, JVD, lymphadenopathy, thyromegaly Respiratory exam: PRESENT: decreased breath sounds Cardiovascular exam: PRESENT: RRR. ABSENT: diastolic murmur, rubs, systolic murmur GI/Abdominal exam: PRESENT: normal bowel sounds, soft. ABSENT: distended, guarding, mass, organolmegaly, rebound, tenderness Extremities exam: PRESENT: full ROM. ABSENT: calf tenderness, clubbing, pedal edema Neurological exam: PRESENT: alert, awake, oriented to person, oriented to place, oriented to time, oriented to situation, CN II-XII grossly intact. ABSENT: motor sensory deficit Psychiatric exam: PRESENT: appropriate affect, normal mood. ABSENT: homicidal ideation, suicidal ideation Results Laboratory Results: 08/25/18 06:23 08/25/18 06:23 08/25/18 08/25/18 08/25/18 14:40 17:10 23:10 Carbonic Acid 2.02 H 2.25 H 1.58 H HCO3/H2CO3 Ratio 14:1 12:1 16:1 ABG pH 7.24 L 7.20 L* 7.31 L ABG pCO2 67.2 H 74.9 H* 52.4 H ABG pO2 72.9 L 112.2 H 91.9 ABG HCO3 28.3 H 28.5 H 25.8 H ABG O2 Saturation 91.5 L 96.9 96.2 ABG Base Excess 0.2 -0.5 -0.7 FiO2 6L 60% 60% 08/26/18 05:10 Carbonic Acid 1.19 HCO3/H2CO3 Ratio 19:1 ABG pH 7.39 ABG pCO2 39.5 ABG pO2 99.4 ABG HCO3 23.6 ABG O2 Saturation 97.5 ABG Base Excess -1.2 FiO2 60% 08/23/18 08/23/18 03:38 03:38 Creatine Kinase 181 H CK-MB (CK-2) 3.60 Troponin I < 0.012 Impressions: Chest X-Ray 08/26/18 06:00 IMPRESSION: 1. Ongoing mild diffuse opacification of the right hemithorax and left inferior hemithorax without significant interval change when compared to the most recent study. The appearance of the left lung base may be due to leftward rotation of the patient. 2. Grossly stable life support lines and tubes. Assessment and Plan - Diagnosis (1) Acute respiratory failure with hypoxia Is this a current diagnosis for this admission?: Yes Plan: Worsening Secondary to COPD exacerbation stemming from pneumonia Patient very lethargic and minimally responsive today ABG demonstrates hypoxic and hypercarbic respiratory acidosis PRN and scheduled nebulizer treatments Empiric antibiotic coverage Supplemental oxygen for SPO2>88% Plan for BiPAP today Follow-up ABG tonight Upgrade to IMCU 08/26/2018-patient was transferred to ICU yesterday evening for respiratory distress and abnormal ABG with pH of 7.2 PCO2 was 74.6 and she was intubated in third floor transferred to ICU here. Presently she is on SIMV with tidal volume of 500 PEEP of 5 and 50% oxygen with rate of 20 ABG shows pH of 7.39/PCO2 39.5 PO2 99 bicarb is 23.6 much improved compared to the ABG yesterday. Chest x-ray shows bilateral opacification in the right and left hemithorax. Patient is also on antibiotic therapy. She did is presently on ceftriaxone and Zithromax. plan is to do the blood cultures today. (2) COPD exacerbation Is this a current diagnosis for this admission?: Yes Plan: 08/25/2018-patient has a COPD admitted for COPD exacerbation. Presently she is intubated. (3) Pneumonia Qualifiers: Laterality: left Lung location: lower lobe of lung Is this a current diagnosis for this admission?: Yes Plan: As seen on CXR Azithromycin and ceftriaxone for community-acquired pneumonia Supplemental O2 for SPO2>88% Plan for BiPAP today, follow-up ABG tonight 08/25/2018-chest x-ray shows bilateral opacifications presently on ceftriaxone and azithromycin for community-acquired pneumonia. Presently she is intubated. To the blood cultures and sputum cultures if possible. Patient had most likely community-acquired pneumonia and gram-positive organisms are responsible. (4) Tobacco abuse Is this a current diagnosis for this admission?: Yes Plan: 08/25/2018-patient has history of tobacco abuse, patient is presently on nicotine patch. (5) Alcohol use disorder Is this a current diagnosis for this admission?: Yes Plan: Patient admits to drinking 6 hard alcohol drinks per day Scotch mixed with juice or soda As needed IV Ativan for agitation/EtOH withdrawal Scheduled Valium p.o. Once patient is more alert, plan to administer 1oz whiskey TID with meals 08/25/2018-patient has history of heavy alcohol use. During the hospital stay with watching for DTs. Presently she is intubated and on IV Ativan for agitation. No seizure activity was noted during the hospital stay. (6) Diabetes mellitus Is this a current diagnosis for this admission?: Yes Plan: Poor compliance Hemoglobin A1c 10% Accu-Cheks ACHS Humalog sliding scale insulin 08/25/2018-patient has history of diabetes mellitus type 2, hemoglobin A1c is 10% presently on Accu-Cheks before meals and at bedtime with sliding scale we going to change the blood sugars check to every 6 hours. (7) Diabetic leg ulcer Is this a current diagnosis for this admission?: Yes Plan: Lymphedema, peripheral vascular disease, severe hyperkeratosis Surgery consulted Recommend bilateral Unna boots Placed yesterday by Dr. Nava 08/26/2018-patient has history of lymphedema, peripheral vascular disease and severe hyperkeratosis. As per surgery patient is on a Unna boot's. Plan is to continue the present management. (8) Anemia Qualifiers: Anemia type: iron deficiency Iron deficiency anemia type: inadequate dietary iron intake Qualified Code(s): D50.8 - Other iron deficiency anemias Is this a current diagnosis for this admission?: No Plan: 08/26/2018-patient has history of anemia of chronic disease hemoglobin is 8.9. It probably secondary to chronic kidney disease. (9) CKD (chronic kidney disease) Is this a current diagnosis for this admission?: No Plan: 08/26/2018-patient creatinine is 1.51, patient's baseline creatinine is around 1.2-1.30. Acute on chronic kidney injury may be secondary to poor oral intake. plan is to check the CMP/ kidney function tomorrow. - Time Time Spent with patient: 25-34 minutes Medications reviewed and adjusted accordingly: Yes Anticipated discharge: SNF
[2018-08-26] MEDS: METFORMIN HCL 500 MG TABLET NG SCH ×2 (08:40→15:32)
[2018-08-26] MEDS: AZITHROMYCIN 250 MG TABLET NG SCH (08:41)
[2018-08-26] MEDS: INSULIN LISPRO 100 UNIT/ML 3 ML VIAL SUBCUT SCH ×3 (08:42→15:43)
[2018-08-26] MEDS: METHYLPREDNISOLONE INJ 40 MG/1 ML SDV IV SCH ×3 (08:46→21:27)
[2018-08-26] MEDS: CEFTRIAXONE SODIUM 1,000 MG in DEXTROSE 5%-WATER 50 ML IV SCH (08:46)
[2018-08-26 08:48] LABS: ABSOLUTE LYMPHOCYTES (AUTO) 0.6 10^3/uL (0.5-4.7); ABSOLUTE MONOCYTES (AUTO) 0.1 10^3/uL (0.1-1.4); ABSOLUTE NEUT (AUTO) 5.7 10^3/uL (1.7-8.2); BASOPHILS % (AUTO) 0.1 % (0-2); HEMATOCRIT 23.4 % (36.0-47.0); MEAN CORPUSCULAR HEMOGLOBIN 25.5 pg (27.0-33.4); MEAN CORPUSCULAR HGB CONC 31.3 g/dL (32.0-36.0); MEAN CORPUSCULAR VOLUME 82 fl (80-97); MONOCYTES % (AUTO) 0.9 % (3-13); PLATELET COUNT 309 10^3/uL (150-450); RED BLOOD COUNT 2.87 10^6/uL (3.72-5.28); RED CELL DISTRIBUTION WIDTH 17.1 % (11.5-14.0); TOTAL CELLS COUNTED % (AUTO) 100 %; WHITE BLOOD COUNT 6.3 10^3/uL (4.0-10.5)
[2018-08-26 08:53] LABS: HEMOGLOBIN 7.3 g/dL (12.0-15.5)
[2018-08-26 09:02] LABS: ALANINE AMINOTRANSFERASE 30 U/L (9-52); ALBUMIN 2.5 g/dL (3.5-5.0); ALKALINE PHOSPHATASE 75 U/L (38-126); ANION GAP 10 (5-19); ASPARTATE AMINO TRANSFERASE 18 U/L (14-36); BILIRUBIN,DIRECT 0.3 mg/dL (0.0-0.4); BILIRUBIN,TOTAL 0.3 mg/dL (0.2-1.3); BLOOD UREA NITROGEN 31 mg/dL (7-20); CALCIUM 7.4 mg/dL (8.4-10.2); CARBON DIOXIDE 22 mmol/L (22-30); CHLORIDE 102 mmol/L (98-107); GLUCOSE 298 mg/dL (75-110); SODIUM 133.6 mmol/L (137-145); TOTAL PROTEIN 4.9 g/dL (6.3-8.2)
[2018-08-26] MEDS ORDERED: NORMAL SALINE 250 ML IV PRN ×2 (09:12)
[2018-08-26] MEDS: THIAMINE HCL 100 MG TABLET PO SCH (10:34)
[2018-08-26] MEDS: NICOTINE 7 MG/24 HR PATCH.TD24 TD SCH (10:35)
[2018-08-26] MEDS: SPIRONOLACTONE 25 MG TABLET NG SCH (10:43)
[2018-08-26] MEDS: NORMAL SALINE 1000 ML 1,000 ML with MAGNESIUM SULFATE 8 MEQ, THIAMINE HCL 100 MG, MVI, ... IV SCH ×4 (18:04)
[2018-08-26] MEDS: PREGABALIN 100 MG CAPSULE NG SCH (18:04)
[2018-08-26 23:37] LABS: ABSOLUTE LYMPHOCYTES (AUTO) 0.4 10^3/uL (0.5-4.7); ABSOLUTE MONOCYTES (AUTO) 0.2 10^3/uL (0.1-1.4); ABSOLUTE NEUT (AUTO) 6.4 10^3/uL (1.7-8.2); BASOPHILS % (AUTO) 0.2 % (0-2); HEMATOCRIT 29.7 % (36.0-47.0); LYMPHOCYTES % (AUTO) 5.7 % (13-45); MEAN CORPUSCULAR HEMOGLOBIN 26.4 pg (27.0-33.4); MEAN CORPUSCULAR HGB CONC 32.3 g/dL (32.0-36.0); MEAN CORPUSCULAR VOLUME 82 fl (80-97); MONOCYTES % (AUTO) 2.7 % (3-13); PLATELET COUNT 317 10^3/uL (150-450); RED BLOOD COUNT 3.64 10^6/uL (3.72-5.28); RED CELL DISTRIBUTION WIDTH 16.7 % (11.5-14.0); SEGMENTED NEUTROPHILS % (AUTO) 91.4 % (42-78); TOTAL CELLS COUNTED % (AUTO) 100 %
[2018-08-26 23:38] LABS: HEMOGLOBIN 9.6 g/dL (12.0-15.5)
[2018-08-27] MEDS: DIAZEPAM 5 MG TABLET NG SCH ×4 (00:10→17:20)
[2018-08-27] MEDS: PROPOFOL 1,000 MG/100 ML INFUS..BTL IV PRN ×3 (00:10→20:36)
[2018-08-27] MEDS: IPRATROPIUM/ALBUTEROL 0.5-2.5 MG/3 ML AMPUL NEB SCH ×4 (02:23→19:56)
[2018-08-27] MEDS: LORAZEPAM 24 MG/ D5W 240 ML IV PRN ×2 (03:06→13:59)
[2018-08-27 04:17] LABS: ABSOLUTE LYMPHOCYTES (AUTO) 0.4 10^3/uL (0.5-4.7); ABSOLUTE MONOCYTES (AUTO) 0.1 10^3/uL (0.1-1.4); ABSOLUTE NEUT (AUTO) 6.9 10^3/uL (1.7-8.2); BASOPHILS % (AUTO) 0.1 % (0-2); HEMATOCRIT 29.7 % (36.0-47.0); HEMOGLOBIN 9.7 g/dL (12.0-15.5); LYMPHOCYTES % (AUTO) 5.1 % (13-45); MEAN CORPUSCULAR HEMOGLOBIN 26.3 pg (27.0-33.4); MEAN CORPUSCULAR HGB CONC 32.6 g/dL (32.0-36.0); MEAN CORPUSCULAR VOLUME 81 fl (80-97); MONOCYTES % (AUTO) 1.9 % (3-13); PLATELET COUNT 310 10^3/uL (150-450); RED BLOOD COUNT 3.69 10^6/uL (3.72-5.28); RED CELL DISTRIBUTION WIDTH 17.1 % (11.5-14.0); SEGMENTED NEUTROPHILS % (AUTO) 92.9 % (42-78); TOTAL CELLS COUNTED % (AUTO) 100 %; WHITE BLOOD COUNT 7.5 10^3/uL (4.0-10.5)
[2018-08-27 04:30] LABS: ANION GAP 8 (5-19); BLOOD UREA NITROGEN 32 mg/dL (7-20); CALCIUM 7.8 mg/dL (8.4-10.2); CARBON DIOXIDE 19 mmol/L (22-30); CHLORIDE 105 mmol/L (98-107); GLUCOSE 370 mg/dL (75-110); PHOSPHORUS 3.9 mg/dL (2.5-4.5); POTASSIUM 4.8 mmol/L (3.6-5.0); SODIUM 132.4 mmol/L (137-145)
[2018-08-27 04:46] LABS: ARTERIAL BLOOD BASE EXCESS -2.9 mmol/L; ARTERIAL BLOOD FIO2 40%; ARTERIAL BLOOD H2CO3 1.14 mmol/L (1.05-1.35); ARTERIAL BLOOD HCO3 21.9 mmol/L (20-24); ARTERIAL BLOOD PCO2 37.8 mmHg (35-45); ARTERIAL BLOOD PH 7.38 (7.35-7.45); ARTERIAL BLOOD PO2 63.4 mmHg (80-100)
[2018-08-27] MEDS: DILTIAZEM HCL 60 MG TABLET NG SCH ×3 (05:10→22:15)
[2018-08-27] MEDS: METHYLPREDNISOLONE INJ 40 MG/1 ML SDV IV SCH ×4 (05:11→22:17)
[2018-08-27] MEDS: HEPARIN SOD (PORCINE) 5,000 UNIT/ML 1 ML SYRINGE SUBCUT SCH ×3 (05:11→22:16)
--- NOTE | 2018-08-27 08:35 | PDOC PROGRESS REPORT ---
Subjective Progress Note for:: 08/27/18 Subjective:: 72 year old female with a past medical history of insulin dependent diabetes, hypertension, severe lymphedema with stasis, chronic bronchitis, COPD, alcohol and tobacco dependence. Over the past 36 hours patient is developed a nonproductive cough, shortness of breath. Admitted to hospitalist service for COPD exacerbation. The patient was seen this afternoon on rounds, she is resting in bed on supplemental oxygen. She is very lethargic, minimally responsive. Her speech is difficult to understand, she falls asleep during the interview. Vital signs have been WNL, no evidence of hypoxia on pulse oximetry. Lung sounds relatively clear, diminished in bilateral bases. Nursing staff reports the patient received 1 dose of Ativan 0.5 mg p.o. this morning at 0630 for agitation, likely related to EtOH withdrawal. The patient states she drinks approximately 6 hard liquor cocktails per day. Stat ABG reveals hypoxic/hypercapnic respiratory acidosis (pH 7.24 CO2 67). Plan to place patient on BiPAP and upgraded to IMCU. [id number]-old female has abnormal ABG yesterday evening and she has a difficulty in breathing become tachypneic tachycardic the ABG was abnormal on BiPAP so she was intubated and transferred to ICU. No acute events since last night. Today's labs are pending. Chest x-ray shows bilateral opacification in the right hemithorax and left hemithorax. Currently patient is on propofol 35 mg and 8140 mg/h for sedation and she is on SIMV with rate of 20 PEEP of 5 oxygen saturation of 60% tidal volume of 500 ABG done this morning shows pH of 7.39/PCO2 39.5/PO2 99 bicarb is 23.6. Plan is to decrease oxygen requirements today. And also decrease the sedation today. 08/27/2018 patient is still intubated on SIMV with 35% oxygen PEEP of 5 rate of 20 tidal volume of 500. ABG done this morning is a little bit mixed ABG pH is 7.38 PCO2 37.8 PO2 63.4 bicarb is 22. Chest x-ray done yesterday shows bilateral opacifications on a Zithromax and ceftriaxone blood cultures are negative so far. Patient's hemoglobin A1c came back 10.8 plan is to stop metformin today increased Lantus to 35 units twice a day and decreased IV Solu-Medrol from 40 mg every 8 hours to every 12 hours today. Patient is afebrile. Blood pressure is 130/65 and IV fluids are discontinued. Patient is not on any pressure support. pt is receiving NG tube feeds from yesterday. Patient is presently on Ativan 2 mg/h and deprivan 30 mcg/kg/min. Reason For Visit: COPD EXACERBATION PNEUMONIA,DM,LEFT DM LUNG ULCER Physical Exam Vital Signs: Temp Pulse Resp BP Pulse Ox 98.2 F 86 20 130/60 H 92 08/27/18 07:58 08/27/18 07:58 08/27/18 07:58 08/27/18 07:58 08/27/18 07:58 Intake & Output 08/26/18 08/27/18 08/28/18 06:59 06:59 06:59 Intake Total 1375 2762 Output Total 835 1045 50 Balance 540 1717 -50 Weight 76 kg 76.4 kg General appearance: PRESENT: no acute distress, thin, other - Patient is under sedation on mechanical ventilation. Head exam: PRESENT: atraumatic Eye exam: PRESENT: PERRLA Mouth exam: PRESENT: moist Neck exam: ABSENT: carotid bruit, JVD, lymphadenopathy, thyromegaly Respiratory exam: PRESENT: decreased breath sounds Cardiovascular exam: PRESENT: RRR. ABSENT: diastolic murmur, rubs, systolic murmur Pulses: PRESENT: normal dorsalis pedis pul GI/Abdominal exam: PRESENT: normal bowel sounds, soft, other - NG tube is in place.. ABSENT: distended, guarding, mass, organolmegaly, rebound, tenderness Extremities exam: PRESENT: full ROM. ABSENT: calf tenderness, clubbing, pedal edema Neurological exam: PRESENT: other - Patient is under mechanical ventilation and sedation. Results Laboratory Results: 08/27/18 03:57 08/27/18 03:57 08/26/18 08/26/18 08/26/18 08:14 08:14 09:40 WBC 6.3 RBC 2.87 L Hgb 7.3 L Hct 23.4 L MCV 82 MCH 25.5 L MCHC 31.3 L RDW 17.1 H Plt Count 309 Seg Neutrophils % 90.0 H Lymphocytes % 9.0 L Monocytes % 0.9 L Eosinophils % 0.0 Basophils % 0.1 Absolute Neutrophils 5.7 Absolute Lymphocytes 0.6 Absolute Monocytes 0.1 Absolute Eosinophils 0.0 Absolute Basophils 0.0 Carbonic Acid HCO3/H2CO3 Ratio ABG pH ABG pCO2 ABG pO2 ABG HCO3 ABG O2 Saturation ABG Base Excess FiO2 Sodium 133.6 L Potassium 5.0 Chloride 102 Carbon Dioxide 22 Anion Gap 10 BUN 31 H Creatinine 1.30 H Est GFR ( Amer) 49 L Est GFR (Non-Af Amer) 40 L Glucose 298 H Calcium 7.4 L Phosphorus Magnesium 2.6 H Total Bilirubin 0.3 AST 18 ALT 30 Alkaline Phosphatase 75 Total Protein 4.9 L Albumin 2.5 L Blood Type A POSITIVE Antibody Screen NEGATIVE 08/26/18 08/27/18 08/27/18 23:18 03:57 03:57 WBC 7.0 7.5 RBC 3.64 L 3.69 L Hgb 9.6 L D 9.7 L Hct 29.7 L 29.7 L MCV 82 81 MCH 26.4 L 26.3 L MCHC 32.3 32.6 RDW 16.7 H 17.1 H Plt Count 317 310 Seg Neutrophils % 91.4 H 92.9 H Lymphocytes % 5.7 L 5.1 L Monocytes % 2.7 L 1.9 L Eosinophils % 0.0 0.0 Basophils % 0.2 0.1 Absolute Neutrophils 6.4 6.9 Absolute Lymphocytes 0.4 L 0.4 L Absolute Monocytes 0.2 0.1 Absolute Eosinophils 0.0 0.0 Absolute Basophils 0.0 0.0 Carbonic Acid HCO3/H2CO3 Ratio ABG pH ABG pCO2 ABG pO2 ABG HCO3 ABG O2 Saturation ABG Base Excess FiO2 Sodium 132.4 L Potassium 4.8 Chloride 105 Carbon Dioxide 19 L Anion Gap 8 BUN 32 H Creatinine 1.26 H Est GFR ( Amer) 50 L Est GFR (Non-Af Amer) 42 L Glucose 370 H Calcium 7.8 L Phosphorus 3.9 Magnesium 2.8 H Total Bilirubin AST ALT Alkaline Phosphatase Total Protein Albumin Blood Type Antibody Screen 08/27/18 04:38 WBC RBC Hgb Hct MCV MCH MCHC RDW Plt Count Seg Neutrophils % Lymphocytes % Monocytes % Eosinophils % Basophils % Absolute Neutrophils Absolute Lymphocytes Absolute Monocytes Absolute Eosinophils Absolute Basophils Carbonic Acid 1.14 HCO3/H2CO3 Ratio 19:1 ABG pH 7.38 ABG pCO2 37.8 ABG pO2 63.4 L ABG HCO3 21.9 ABG O2 Saturation 92.0 L ABG Base Excess -2.9 FiO2 40% Sodium Potassium Chloride Carbon Dioxide Anion Gap BUN Creatinine Est GFR ( Amer) Est GFR (Non-Af Amer) Glucose Calcium Phosphorus Magnesium Total Bilirubin AST ALT Alkaline Phosphatase Total Protein Albumin Blood Type Antibody Screen 08/23/18 08/23/18 03:38 03:38 Creatine Kinase 181 H CK-MB (CK-2) 3.60 Troponin I < 0.012 Assessment and Plan - Diagnosis (1) Acute respiratory failure with hypoxia Is this a current diagnosis for this admission?: Yes Plan: Worsening Secondary to COPD exacerbation stemming from pneumonia Patient very lethargic and minimally responsive today ABG demonstrates hypoxic and hypercarbic respiratory acidosis PRN and scheduled nebulizer treatments Empiric antibiotic coverage Supplemental oxygen for SPO2>88% Plan for BiPAP today Follow-up ABG tonight Upgrade to IMCU 08/26/2018-patient was transferred to ICU yesterday evening for respiratory distress and abnormal ABG with pH of 7.2 PCO2 was 74.6 and she was intubated in third floor transferred to ICU here. Presently she is on SIMV with tidal volume of 500 PEEP of 5 and 50% oxygen with rate of 20 ABG shows pH of 7.39/PCO2 39.5 PO2 99 bicarb is 23.6 much improved compared to the ABG yesterday. Chest x-ray shows bilateral opacification in the right and left hemithorax. Patient is also on antibiotic therapy. She did is presently on ceftriaxone and Zithromax. plan is to do the blood cultures today. 08/27/2018-patient developed acute on chronic respiratory failure with hypoxia most likely secondary to underlying vein pneumonia. Blood cultures negative so far. Patient is on ceftriaxone and aspirin. Patient may be aspirated. Possible organisms likely to be gram-negative organisms. ABG on 40% oxygen this morning pH is 7.38/PCO2 37.8/PO2 63.4 bicarb is 22. Patient is also on IV Solu- Medrol 40 mg every 8 hours and it was decreased to every 12 hours today. Plan is to repeat the ABG tomorrow. Plan is to do the chest x-rays on daily basis. From today Trying to gradually wean off the sedation. (2) COPD exacerbation Is this a current diagnosis for this admission?: Yes Plan: 08/25/2018-patient has a COPD admitted for COPD exacerbation. Presently she is intubated. 08/27/2018-patient has history of COPD admitted for COPD exacerbation. Presently on mechanical ventilation on sedation. Chest x-ray shows COPD and and lauren ateral opacifications suggestive of possible aspiration pneumonia. Currently on Zithromax and ceftriaxone. Afebrile. Blood cultures are negative so far. (3) Pneumonia Qualifiers: Laterality: left Lung location: lower lobe of lung Is this a current diagnosis for this admission?: Yes Plan: As seen on CXR Azithromycin and ceftriaxone for community-acquired pneumonia Supplemental O2 for SPO2>88% Plan for BiPAP today, follow-up ABG tonight 08/25/2018-chest x-ray shows bilateral opacifications presently on ceftriaxone and azithromycin for community-acquired pneumonia. Presently she is intubated. To the blood cultures and sputum cultures if possible. Patient had most likely community-acquired pneumonia and gram-positive organisms are responsible. 08/27/2018-chest x-ray shows bilateral opacifications patient is presently on IV ceftriaxone and azithromycin for possible aspiration pneumonia probably gram- negative organisms. Plan is to continue the present management. (4) Tobacco abuse Is this a current diagnosis for this admission?: Yes (5) Alcohol use disorder Is this a current diagnosis for this admission?: Yes Plan: Patient admits to drinking 6 hard alcohol drinks per day Scotch mixed with juice or soda As needed IV Ativan for agitation/EtOH withdrawal Scheduled Valium p.o. Once patient is more alert, plan to administer 1oz whiskey TID with meals 08/26/2018-patient has history of heavy alcohol use. During the hospital stay with watching for DTs. Presently she is intubated and on IV Ativan for agitation. No seizure activity was noted during the hospital stay. 08/27/2018-patient is presently on a banana bag daily basis. Be watching for the DTs. Presently she is on IV Ativan 2 mg/h to prevent 30 mcg/kg/min. No acute events in the last 24 hours. (6) Diabetes mellitus Is this a current diagnosis for this admission?: Yes Plan: Poor compliance Hemoglobin A1c 10% Accu-Cheks ACHS Humalog sliding scale insulin 08/26/2018-patient has history of diabetes mellitus type 2, hemoglobin A1c is 10% presently on Accu-Cheks before meals and at bedtime with sliding scale we going to change the blood sugars check to every 6 hours. For 10/2018-hemoglobin A1c came back 10.8 latest blood sugar is 370 patient is on metformin thousand milligrams p.o. twice daily Lantus 25 units subcu twice daily , plan is to increase the dose of Lantus to 35 units twice a day and discontinue metformin. Patient is on IV Solu-Medrol 40 mg every 8 hours plan to decrease the dose to every 12 hours. (7) Diabetic leg ulcer Is this a current diagnosis for this admission?: Yes Plan: Lymphedema, peripheral vascular disease, severe hyperkeratosis Surgery consulted Recommend bilateral Unna boots Placed yesterday by Dr. Nava 08/26/2018-patient has history of lymphedema, peripheral vascular disease and severe hyperkeratosis. As per surgery patient is on a Unna boot's. Plan is to continue the present management. 08/27/2018-patient has chronic lymphedema, peripheral vascular disease she is in a Unna boot as per surgical recommendations. (8) Anemia Qualifiers: Anemia type: iron deficiency Iron deficiency anemia type: inadequate dietary iron intake Qualified Code(s): D50.8 - Other iron deficiency anemias Is this a current diagnosis for this admission?: No Plan: 08/26/2018-patient has history of anemia of chronic disease hemoglobin is 8.9. It probably secondary to chronic kidney disease. 08/27/2018-patient has history of anemia of chronic disease hemoglobin dropped to 7.7 yesterday status post 2 units of blood transfusion and hemoglobin came up to 9.7 today. Because of acute blood loss anemia is unknown at this moment. (9) CKD (chronic kidney disease) Is this a current diagnosis for this admission?: No Plan: 08/26/2018-patient creatinine is 1.51, patient's baseline creatinine is around 1.2 -1.30. Acute on chronic kidney injury may be secondary to poor oral intake. plan is to check the CMP/ kidney function tomorrow. 08/27/2018-patient's creatinine today 1.26 baseline creatinine is around 1.2-1.3 acute on chronic kidney injury most likely secondary to poor oral intake resolving. She was started back on NG tube feedings from yesterday. Her output is more than 1 L. (11) Hyponatremia Is this a current diagnosis for this admission?: Yes Plan: 08/27/2018-patient's serum sodium level today is 132.8. Blood sugar is 370. Corrected sodium probably around 136. Hyponatremia is resolved. - Time Time Spent with patient: 25-34 minutes Anticipated discharge: Home, SNF
[2018-08-27] MEDS: CEFTRIAXONE SODIUM 1,000 MG in DEXTROSE 5%-WATER 50 ML IV SCH (08:38)
[2018-08-27] MEDS: INSULIN LISPRO 100 UNIT/ML 3 ML VIAL SUBCUT SCH ×3 (08:38→17:18)
[2018-08-27] MEDS: AZITHROMYCIN 250 MG TABLET NG SCH (08:39)
[2018-08-27] MEDS: SPIRONOLACTONE 25 MG TABLET NG SCH (08:59)
[2018-08-27] MEDS: VENLAFAXINE HCL 75 MG TABLET NG SCH ×2 (08:59→22:14)
[2018-08-27] MEDS: NICOTINE 7 MG/24 HR PATCH.TD24 TD SCH (08:59)
[2018-08-27] MEDS: FLUTICASONE NASAL SPRAY 50 MCG/SPRY 120 SPRAY/16 GM NASL SCH ×2 (09:00→22:15)
--- NOTE | 2018-08-27 09:57 | RADIOLOGY REPORT (SQ) ---
EXAM DESCRIPTION: CHEST SINGLE VIEW COMPLETED DATE/TIME: 08/27/2018 6:32 am REASON FOR STUDY: resp failure COMPARISON: Previous day. NUMBER OF VIEWS: One view. TECHNIQUE: Single frontal radiographic image of the chest acquired. LIMITATIONS: None. FINDINGS: LUNGS AND PLEURA: Airspace disease in the lower lobes, right greater than left. No pneumo thorax. MEDIASTINUM AND HILAR STRUCTURES: Stable heart size and mediastinal structures. HEART AND VASCULAR STRUCTURES: Stable appearance. SUPPORT DEVICES: Appropriate location without change. BONES: No acute findings. OTHER: No other significant finding. IMPRESSION: STABLE APPEARANCE OF THE CHEST. SUPPORT DEVICES UNCHANGED. TECHNICAL DOCUMENTATION: JOB ID: [id number] [employer]- All Rights Reserved Reading location - IP/workstation name: [email or web address]
[2018-08-27] MEDS: INSULIN GLARGINE,HUM.REC.ANLOG 1,000 UNIT/10 ML VIAL SUBCUT SCH ×2 (12:12→22:16)
[2018-08-27] MEDS ORDERED: NORMAL SALINE 1000 ML 1,000 ML IV PRN (16:26)
[2018-08-27] MEDS: PREGABALIN 100 MG CAPSULE NG SCH (17:18)
[2018-08-27] MEDS ORDERED: NORMAL SALINE 1000 ML 1,000 ML with MAGNESIUM SULFATE 8 MEQ, THIAMINE HCL 100 MG, MVI, ... IV ONE ×4 (18:00)
[2018-08-27] MEDS: ATORVASTATIN CALCIUM 10 MG TABLET NG SCH (22:15)
[2018-08-28] MEDS: DIAZEPAM 5 MG TABLET NG SCH ×5 (00:32→23:50)
[2018-08-28] MEDS: IPRATROPIUM/ALBUTEROL 0.5-2.5 MG/3 ML AMPUL NEB SCH ×4 (02:18→19:45)
[2018-08-28] MEDS: PROPOFOL 1,000 MG/100 ML INFUS..BTL IV PRN ×3 (02:32→21:41)
[2018-08-28] MEDS: LORAZEPAM 24 MG/ D5W 240 ML IV PRN ×2 (02:35→14:17)
[2018-08-28 04:52] LABS: ARTERIAL BLOOD BASE EXCESS -2.5 mmol/L; ARTERIAL BLOOD H2CO3 0.98 mmol/L (1.05-1.35); ARTERIAL BLOOD HCO3 21.2 mmol/L (20-24); ARTERIAL BLOOD O2 SATURATION 93.2 % (94-98); ARTERIAL BLOOD PCO2 32.5 mmHg (35-45); ARTERIAL BLOOD PH 7.43 (7.35-7.45); ARTERIAL BLOOD PO2 63.7 mmHg (80-100); ARTERIAL BLOOD TOTAL CO2 22.2 mmol/L (21-25)
[2018-08-28 05:03] LABS: ARTERIAL BLOOD FIO2 35%
[2018-08-28] MEDS: DILTIAZEM HCL 60 MG TABLET NG SCH ×3 (06:34→22:05)
[2018-08-28] MEDS: HEPARIN SOD (PORCINE) 5,000 UNIT/ML 1 ML SYRINGE SUBCUT SCH ×3 (06:35→21:40)
[2018-08-28 06:51] LABS: HEMATOCRIT 30.7 % (36.0-47.0); HEMOGLOBIN 9.9 g/dL (12.0-15.5); MEAN CORPUSCULAR HGB CONC 32.2 g/dL (32.0-36.0); MEAN CORPUSCULAR VOLUME 81 fl (80-97); PLATELET COUNT 295 10^3/uL (150-450); RED BLOOD COUNT 3.81 10^6/uL (3.72-5.28); RED CELL DISTRIBUTION WIDTH 17.2 % (11.5-14.0); WHITE BLOOD COUNT 10.7 10^3/uL (4.0-10.5)
[2018-08-28 07:18] LABS: ALANINE AMINOTRANSFERASE 27 U/L (9-52); ALBUMIN 2.7 g/dL (3.5-5.0); ALKALINE PHOSPHATASE 69 U/L (38-126); ANION GAP 10 (5-19); ASPARTATE AMINO TRANSFERASE 9 U/L (14-36); BILIRUBIN,DIRECT 0.2 mg/dL (0.0-0.4); BILIRUBIN,TOTAL 0.2 mg/dL (0.2-1.3); BLOOD UREA NITROGEN 39 mg/dL (7-20); CARBON DIOXIDE 20 mmol/L (22-30); CHLORIDE 105 mmol/L (98-107); GLUCOSE 310 mg/dL (75-110); POTASSIUM 4.9 mmol/L (3.6-5.0); SODIUM 134.6 mmol/L (137-145); TOTAL PROTEIN 5.3 g/dL (6.3-8.2)
[2018-08-28 07:39] LABS: ABSOLUTE LYMPHOCYTES# (MANUAL) 0.5 10^3/uL (0.5-4.7); ABSOLUTE NEUTROPHILS# (MANUAL) 10.2 10^3/uL (1.7-8.2); BASOPHILS % (MANUAL) 0 % (0-2); EOSINOPHILS % (MANUAL) 0 % (0-6); LYMPHOCYTES % (MANUAL) 5 % (13-45); MONOCYTES % (MANUAL) 0 % (3-13); SEGMENTED NEUTROPHILS % (MAN) 95 % (42-78); TOTAL CELLS COUNTED 100
[2018-08-28 07:41] LABS: ANISOCYTOSIS 1+; HYPOCHROMASIA SLIGHT; PLATELET COMMENT ADEQUATE; POLYCHROMASIA SLIGHT
--- NOTE | 2018-08-28 08:55 | PDOC PROGRESS REPORT ---
Subjective Progress Note for:: 08/28/18 Subjective:: 72 year old female with a past medical history of insulin dependent diabetes, hypertension, severe lymphedema with stasis, chronic bronchitis, COPD, alcohol and tobacco dependence. Over the past 36 hours patient is developed a nonproductive cough, shortness of breath. Admitted to hospitalist service for COPD exacerbation. The patient was seen this afternoon on rounds, she is resting in bed on supplemental oxygen. She is very lethargic, minimally responsive. Her speech is difficult to understand, she falls asleep during the interview. Vital signs have been WNL, no evidence of hypoxia on pulse oximetry. Lung sounds relatively clear, diminished in bilateral bases. Nursing staff reports the patient received 1 dose of Ativan 0.5 mg p.o. this morning at 0630 for agitation, likely related to EtOH withdrawal. The patient states she drinks approximately 6 hard liquor cocktails per day. Stat ABG reveals hypoxic/hypercapnic respiratory acidosis (pH 7.24 CO2 67). Plan to place patient on BiPAP and upgraded to IMCU. [id number]-vgnr-old female has abnormal ABG yesterday evening and she has a difficulty in breathing become tachypneic tachycardic the ABG was abnormal on BiPAP so she was intubated and transferred to ICU. No acute events since last night. Today's labs are pending. Chest x-ray shows bilateral opacification in the right hemithorax and left hemithorax. Currently patient is on propofol 35 mg and 8140 mg/h for sedation and she is on SIMV with rate of 20 PEEP of 5 oxygen saturation of 60% tidal volume of 500 ABG done this morning shows pH of 7.39/PCO2 39.5/PO2 99 bicarb is 23.6. Plan is to decrease oxygen requirements today. And also decrease the sedation today. 08/27/2018 patient is still intubated on SIMV with 35% oxygen PEEP of 5 rate of 20 tidal volume of 500. ABG done this morning is a little bit mixed ABG pH is 7.38 PCO2 37.8 PO2 63.4 bicarb is 22. Chest x-ray done yesterday shows bilateral opacifications on a Zithromax and ceftriaxone blood cultures are negative so far. Patient's hemoglobin A1c came back 10.8 plan is to stop metformin today increased Lantus to 35 units twice a day and decreased IV Solu-Medrol from 40 mg every 8 hours to every 12 hours today. Patient is afebrile. Blood pressure is 130/65 and IV fluids are discontinued. Patient is not on any pressure support. pt is receiving NG tube feeds from yesterday. Patient is presently on Ativan 2 mg/h and deprivan 30 mcg/kg/min. 08/28/2018-no acute events in the last 24 hours. Patient is afebrile. 72-year-old female with history of insulin-dependent diabetes mellitus hypertension, COPD, alcohol dependency, tobacco dependency lymphedema with stasis chronic bronchitis admitted for shortness of breath and nonproductive cough she was transferred to the ICU and intubated because of the abnormal ABG and change in mental status with tachypnea and tachycardia. No acute events in the last 24 hours. Afebrile. Still on mechanical ventilation. This morning patient is on 45% oxygen with PEEP of 5 respiratory rate of 20 tidal volume of 500. Process started from yesterday. Chest x-ray done yesterday suggestive of bilateral lower lobe infiltrates. Cultures are negative so far. Patient is presently on azithromycin and ceftriaxone. Sugars are running high more than 300 because patient is on IV Solu-Medrol 40 mg every 12 hours. GLOVE PAIRER is 1566. Echocardiogram was done that was available from 2016 indicates patient might have a grade 2/grade 3 diastolic dysfunction. Pressure this morning is 124/60. Patient is on sedation with Ativan at 2 mg/h to prevent at 25 mcg/kg/min. She is receiving NG tube feeds. Reason For Visit: COPD EXACERBATION PNEUMONIA,DM,LEFT DM LUNG ULCER Physical Exam Vital Signs: Temp Pulse Resp BP Pulse Ox 98.2 F 83 20 124/59 L 93 08/28/18 04:00 08/28/18 08:28 08/28/18 08:28 08/27/18 18:00 08/28/18 08:28 Intake & Output 08/27/18 08/28/18 08/29/18 06:59 06:59 06:59 Intake Total 2762 2366 1013 Output Total 1045 1485 Balance 5161 660 7686 Weight 76.4 kg 79.5 kg General appearance: PRESENT: no acute distress, other - On mechanical ventilation under sedation. Head exam: PRESENT: atraumatic Eye exam: PRESENT: PERRLA Teeth exam: PRESENT: poor dentation Neck exam: ABSENT: carotid bruit, JVD, lymphadenopathy, thyromegaly Respiratory exam: PRESENT: decreased breath sounds Cardiovascular exam: PRESENT: RRR. ABSENT: diastolic murmur, rubs, systolic murmur GI/Abdominal exam: PRESENT: normal bowel sounds, soft, other - NG tube in place.. ABSENT: distended, guarding, mass, organolmegaly, rebound, tenderness Gentrourinary exam: PRESENT: indwelling catheter Extremities exam: PRESENT: other Neurological exam: PRESENT: other - Unable to do neuro examination because patient is under sedation. Pupils are equal and reactive. Results Laboratory Results: 08/28/18 06:15 08/28/18 06:15 08/28/18 08/28/18 08/28/18 04:25 06:15 06:15 WBC 10.7 H RBC 3.81 Hgb 9.9 L Hct 30.7 L MCV 81 MCH 26.0 L MCHC 32.2 RDW 17.2 H Plt Count 295 Seg Neutrophils % Not Reportable Lymphocytes % Not Reportable Monocytes % Not Reportable Eosinophils % Not Reportable Basophils % Not Reportable Absolute Neutrophils Not Reportable Absolute Lymphocytes Not Reportable Absolute Monocytes Not Reportable Absolute Eosinophils Not Reportable Absolute Basophils Not Reportable Carbonic Acid 0.98 L HCO3/H2CO3 Ratio 21:1 ABG pH 7.43 ABG pCO2 32.5 L ABG pO2 63.7 L ABG HCO3 21.2 ABG O2 Saturation 93.2 L ABG Base Excess -2.5 FiO2 35% Sodium 134.6 L Potassium 4.9 Chloride 105 Carbon Dioxide 20 L Anion Gap 10 BUN 39 H Creatinine 1.38 H Est GFR ( Amer) 45 L Est GFR (Non-Af Amer) 37 L Glucose 310 H Calcium 8.0 L Magnesium 3.1 H Total Bilirubin 0.2 AST 9 L ALT 27 Alkaline Phosphatase 69 Total Protein 5.3 L Albumin 2.7 L 08/23/18 08/23/18 08/28/18 03:38 03:38 06:15 Creatine Kinase 181 H CK-MB (CK-2) 3.60 Troponin I < 0.012 NT-Pro-B Natriuret Pep 1560 H Assessment and Plan - Diagnosis (1) Acute respiratory failure with hypoxia Is this a current diagnosis for this admission?: Yes Plan: Worsening Secondary to COPD exacerbation stemming from pneumonia Patient very lethargic and minimally responsive today ABG demonstrates hypoxic and hypercarbic respiratory acidosis PRN and scheduled nebulizer treatments Empiric antibiotic coverage Supplemental oxygen for SPO2>88% Plan for BiPAP today Follow-up ABG tonight Upgrade to IMCU 08/26/2018-patient was transferred to ICU yesterday evening for respiratory dist ress and abnormal ABG with pH of 7.2 PCO2 was 74.6 and she was intubated in third floor transferred to ICU here. Presently she is on SIMV with tidal volume of 500 PEEP of 5 and 50% oxygen with rate of 20 ABG shows pH of 7.39/PCO2 39.5 PO2 99 bicarb is 23.6 much improved compared to the ABG yesterday. Chest x-ray shows bilateral opacification in the right and left hemithorax. Patient is also on antibiotic therapy. She did is presently on ceftriaxone and Zithromax. plan is to do the blood cultures today. 08/27/2018-patient developed acute on chronic respiratory failure with hypoxia most likely secondary to underlying pneumonia. Blood cultures negative so far. Patient is on ceftriaxone and aspirin. Patient may be aspirated. Possible organisms likely to be gram-negative organisms. ABG on 40% oxygen this morning pH is 7.38/PCO2 37.8/PO2 63.4 bicarb is 22. Patient is also on IV Solu-Medrol 40 mg every 8 hours and it was decreased to every 12 hours today. Plan is to repeat the ABG tomorrow. Plan is to do the chest x-rays on daily basis. From today Trying to gradually wean off the sedation. 08/28/2018-patient was intubated for acute on chronic respiratory failure with hypoxia. With probable underlying pneumonia. Chest x-ray yesterday shows bilateral lower lobe infiltrates. Patient is presently on azithromycin and ceftriaxone. Blood cultures are negative. ABG done on 35% this morning shows pH of 7.4/PCO2 32/PCO2 of 63 oxygen saturation of 93%. Patient is also on IV Solu-Medrol 40 mg every 12 hours and it was decreased to daily today. Plan to do the ABGs and chest x-rays on daily basis. BC count is normal 10.7. On mechanical ventilation with PEEP of 5 respiratory of 20 tidal volume of 500 and oxygen of 45%. On Ativan 2 mg/h and to provide 25 mcg/kg/min for sedation. (2) COPD exacerbation Is this a current diagnosis for this admission?: Yes Plan: 08/25/2018-patient has a COPD admitted for COPD exacerbation. Presently she is intubated. 08/27/2018-patient has history of COPD admitted for COPD exacerbation. Presently on mechanical ventilation on sedation. Chest x-ray shows COPD and and bilateral opacifications suggestive of possible aspiration pneumonia. Currently on Zithromax and ceftriaxone. Afebrile. Blood cultures are negative so far. 08/28/2018-patient has history of COPD secondary to chronic smoking. Presently on mechanical ventilation and sedation. Chest x-ray suggestive of airspace disease in both lung garrison at the lower lobes. Blood cultures are negative afebrile presently on azithromycin and Rocephin. (3) Pneumonia Qualifiers: Laterality: left Lung location: lower lobe of lung Is this a current diagnosis for this admission?: Yes Plan: As seen on CXR Azithromycin and ceftriaxone for community-acquired pneumonia Supplemental O2 for SPO2>88% Plan for BiPAP today, follow-up ABG tonight 08/25/2018-chest x-ray shows bilateral opacifications presently on ceftriaxone and azithromycin for community-acquired pneumonia. Presently she is intubated. To the blood cultures and sputum cultures if possible. Patient had most likely community-acquired pneumonia and gram-positive organisms are responsible. 08/27/2018-chest x-ray shows bilateral opacifications patient is presently on IV ceftriaxone and azithromycin for possible aspiration pneumonia probably gram- negative organisms. Plan is to continue the present management. 08/28/2018-latest chest x-ray suggestive of airspace disease in both lower lobes. Most likely healthcare associated pneumonia/aspiration pneumonia. Afebrile. Blood cultures are negative. Blood pressures are stable. On IV ceftriaxone and azithromycin plan is to continue the present management. Probably gram-negative organisms responsible for pneumonia. (4) Tobacco abuse Is this a current diagnosis for this admission?: Yes Plan: 08/25/2018-patient has history of tobacco abuse, patient is presently on nicotine patch. 08/28/2018-patient is presently on nicotine patch. (5) Alcohol use disorder Is this a current diagnosis for this admission?: Yes Plan: Patient admits to drinking 6 hard alcohol drinks per day Scotch mixed with juice or soda As needed IV Ativan for agitation/EtOH withdrawal Scheduled Valium p.o. Once patient is more alert, plan to administer 1oz whiskey TID with meals 08/26/2018-patient has history of heavy alcohol use. During the hospital stay with watching for DTs. Presently she is intubated and on IV Ativan for agitation. No seizure activity was noted during the hospital stay. 08/27/2018-patient is presently on a banana bag daily basis. Be watching for the DTs. Presently she is on IV Ativan 2 mg/h and deprivan 30 mcg/kg/min. No acu te events in the last 24 hours. 08/28/2018-patient is receiving banana bag, be watching for the DTs, presently on Ativan 2 mg/h and t Diprivan 25 mcg/kg/min. Plan is to continue the present management. (6) Diabetes mellitus Is this a current diagnosis for this admission?: Yes Plan: Poor compliance Hemoglobin A1c 10% Accu-Cheks ACHS Humalog sliding scale insulin 08/26/2018-patient has history of diabetes mellitus type 2, hemoglobin A1c is 10% presently on Accu-Cheks before meals and at bedtime with sliding scale we going to change the blood sugars check to every 6 hours. 08/27/2018-hemoglobin A1c came back 10.8 latest blood sugar is 370 patient is on metformin thousand milligrams p.o. twice daily Lantus 25 units subcu twice daily , plan is to increase the dose of Lantus to 35 units twice a day and discontinue metformin. Patient is on IV Solu-Medrol 40 mg every 8 hours plan to decrease the dose to every 12 hours. 08/28/2018-patient's latest blood sugar is 310 on IV Solu-Medrol 40 mg every 12 hours, receiving Lantus 25 units subcu twice a day along with insulin sliding scale every 6 hours. Plan to decrease the Solu-Medrol to 40 mg once a day. Continue the present management. Hemoglobin A1c is 10.8. Once she is extubated dietary advice will be provided. (7) Diabetic leg ulcer Is this a current diagnosis for this admission?: Yes Plan: Lymphedema, peripheral vascular disease, severe hyperkeratosis Surgery consulted Recommend bilateral Unna boots Placed yesterday by Dr. Nava 08/26/2018-patient has history of lymphedema, peripheral vascular disease and severe hyperkeratosis. As per surgery patient is on a Unna boot's. Plan is to continue the present management. 08/27/2018-patient has chronic lymphedema, peripheral vascular disease she is in a Unna boot as per surgical recommendations. 11/2018-patient has chronic lymphedema with stasis in the lower extremities associated with peripheral vascular disease. She has also severe hype rkeratosis. There is absence of the left big toe. Call was placed to the surgeons for a Unna boot placement. (8) Anemia Qualifiers: Anemia type: iron deficiency Iron deficiency anemia type: inadequate dietary iron intake Qualified Code(s): D50.8 - Other iron deficiency anemias Is this a current diagnosis for this admission?: No Plan: 08/26/2018-patient has history of anemia of chronic disease hemoglobin is 8.9. It probably secondary to chronic kidney disease. 08/27/2018-patient has history of anemia of chronic disease hemoglobin dropped to 7.7 yesterday status post 2 units of blood transfusion and hemoglobin came up to 9.7 today. Because of acute blood loss anemia is unknown at this moment. 08/28/2018-patient hemoglobin is 9.9 after 2 units of blood transfusion. Patient has anemia of chronic disease most likely secondary to CKD. (9) CKD (chronic kidney disease) Is this a current diagnosis for this admission?: No Plan: 08/26/2018-patient creatinine is 1.51, patient's baseline creatinine is around 1.2-1.30. Acute on chronic kidney injury may be secondary to poor oral intake. plan is to check the CMP/ kidney function tomorrow. 08/27/2018-patient's creatinine today 1.26 baseline creatinine is around 1.2-1.3 acute on chronic kidney injury most likely secondary to poor oral intake resolving. She was started back on NG tube feedings from yesterday. Her output is more than 1 L. 08/28/2018-patient's baseline creatinine is between 1.2-1.3 today is 1.38. Acute kidney injury is resolved. On IV fluids at 30 cc/h and receiving NG tube feedings also. Output is good input is 2.3 L output is 1480 cc. With positive balance of 887. (10) Hyponatremia Is this a current diagnosis for this admission?: Yes Plan: 08/27/2018-patient's serum sodium level today is 132.8. Blood sugar is 370. Corrected sodium probably around 136. Hyponatremia is resolved. 08/28/2018-in the chemistry serum sodium is 134.6, serum glucose is 310 corrected sodium is around 137. Hyponatremia is resolved. - Time Time Spent with patient: 15-24 minutes Medications reviewed and adjusted accordingly: Yes Anticipated discharge: SNF
--- NOTE | 2018-08-28 09:07 | RADIOLOGY REPORT (SQ) ---
EXAM DESCRIPTION: CHEST SINGLE VIEW COMPLETED DATE/TIME: 08/28/2018 7:00 am REASON FOR STUDY: resp failure COMPARISON: Previous day NUMBER OF VIEWS: One view. TECHNIQUE: Single frontal radiographic image of the chest acquired. LIMITATIONS: None. FINDINGS: LUNGS AND PLEURA: Bilateral lower lobe airspace disease and small effusions, right greater than left not significantly changed. No pneumothorax. MEDIASTINUM AND HEART: Stable heart size and mediastinal structures. SUPPORT DEVICES: Appropriate location without change. BONY STRUCTURES: No acute findings. HARDWARE: None. OTHER: No other significant finding. IMPRESSION: STABLE APPEARANCE OF THE CHEST. SUPPORT DEVICES UNCHANGED. Reading location - IP/workstation name: [email or web address]
[2018-08-28] MEDS: METHYLPREDNISOLONE INJ 40 MG/1 ML SDV IV SCH ×2 (09:18→09:20)
[2018-08-28] MEDS: INSULIN LISPRO 100 UNIT/ML 3 ML VIAL SUBCUT SCH ×3 (09:18→17:41)
[2018-08-28] MEDS: SPIRONOLACTONE 25 MG TABLET NG SCH ×2 (09:18→09:24)
[2018-08-28] MEDS: CEFTRIAXONE SODIUM 1,000 MG in DEXTROSE 5%-WATER 50 ML IV SCH (09:19)
[2018-08-28] MEDS: VENLAFAXINE HCL 75 MG TABLET NG SCH ×2 (09:20→22:01)
[2018-08-28] MEDS: AZITHROMYCIN 250 MG TABLET NG SCH (09:20)
[2018-08-28] MEDS: NORMAL SALINE 1000 ML 1,000 ML IV PRN (09:22)
[2018-08-28] MEDS: NICOTINE 7 MG/24 HR PATCH.TD24 TD SCH (09:24)
[2018-08-28] MEDS: INSULIN GLARGINE,HUM.REC.ANLOG 1,000 UNIT/10 ML VIAL SUBCUT SCH ×2 (09:25→22:06)
[2018-08-28] MEDS: FLUTICASONE NASAL SPRAY 50 MCG/SPRY 120 SPRAY/16 GM NASL SCH ×2 (09:25→22:02)
--- NOTE | 2018-08-28 11:27 | PDOC CONSULTATION ---
Consultation Consult Date: 08/28/18 Consult reason:: bilateral leg ulcers History of Present Illness Admission Date/PCP: 08/23/18 07:10 BARBARA LANTIGUA MD History of Present Illness: VIVEK MAGUIRE is a 72 year old female admitted for hypoxia, RLL infiltrate, currently in the ICU, intubated and sedated. I have been consulted because of the presence of bilateral lower leg Unna Boots, placed at an outside facility because of lower extremity ulcers and to give recommendations about treatment of both leg ulcerations. Past Medical History Cardiac Medical History: Reports: Hyperlipidema, Hypertension, Peripheral Vascular Disease Denies: Atrial Fibrillation, Congestive Heart Failure, Pulmonary Embolism Pulmonary Medical History: Reports: Asthma, Bronchitis, Chronic Obstructive Pulmonary Disease (COPD) Endocrine Medical History: Reports: Diabetes Mellitus Type 1, Diabetes Mellitus Type 2 Psychiatric Medical History: Reports: Depression Hematology: Denies: Bleeding Tendencies Past Surgical History Past Surgical History: Reports: Adenoidectomy, Orthopedic Surgery - Patient has had both left and right hip fracture repairs secondary to falls, Tonsillectomy, Other - Cataract, left great toe amputation Social History Lives with: Alone Smoking Status: Current Every Day Smoker Cigarettes Packs Per Day: 1 Number of Years Smokin Last Time Smoked: T Frequency of Alcohol Use: Heavy Hx Recreational Drug Use: No Drugs: None Hx Prescription Drug Abuse: No - Advance Directive Resuscitation Status: Full Code Family History Family History: Reviewed & Not Pertinent, CAD, Malignancy, Other Parental Family History Reviewed: No Children Family History Reviewed: No Sibling(s) Family History Reviewed.: No Medication/Allergy Home Medications: Albuterol Sulfate [Proair HFA] 1 puff IH Q4HP PRN 03/24/18 Aspirin/Acetaminophen/Caffeine [Excedrin Extra Strength Caplet] 2 tab PO Q6HP PRN 03/24/18 Atorvastatin Calcium [Lipitor 10 mg Tablet] 10 mg PO QHS 03/24/18 Cholecalciferol (Vitamin D3) [Vitamin D3 5000 unit Capsule] 5,000 unit PO DAILY 03/24/18 Diltiazem HCl [Cartia Xt] 240 mg PO DAILY 03/24/18 Folic Acid [Folvite 1 mg Tablet] 1 mg PO DAILY 03/24/18 Hydralazine HCl [Apresoline 50 mg Tablet] 50 mg PO TID 03/24/18 Insulin Glargine,Hum.rec.anlog [Lantus Solostar] 30 units SQ QAM 03/24/18 Insulin Glargine,Hum.rec.anlog [Lantus Solostar] 40 units SQ QPM 03/24/18 Metformin HCl [Glucophage XR 500 mg Tablet] 1,000 mg PO BID 03/24/18 Pramipexole Di-HCl [Mirapex ER] 3.75 mg PO QPM 03/24/18 Pregabalin [Lyrica 100 mg Capsule] 100 mg PO QPM 03/24/18 Spironolactone [Aldactone 100 mg Tablet] 100 mg PO DAILY 03/24/18 Tiotropium [place] [Spiriva Handihaler 18 mcg/dose (30 Dose)] 18 mcg IH DAILY 03/24/18 Venlafaxine HCl [Effexor Xr] 150 mg PO DAILY 03/24/18 Ferrous Sulfate [Feosol 325 mg Tablet] 325 mg PO DAILY 1 Days #60 tablet 03/29/18 Allergies/Adverse Reactions: valsartan [From Diovan] Allergy (Unknown, Verified 03/31/18 08:53) Penicillins Allergy (Verified 03/31/18 08:53) exenatide [From Byetta] Adverse Reaction (Severe, Verified 03/31/18 08:53) Migraine quetiapine [From Seroquel] Adverse Reaction (Verified 08/23/18 03:32) insomnia topiramate [From Topamax] Adverse Reaction (Verified 08/23/18 03:33) vision changes Physical Exam Vital Signs: Temp Pulse Resp BP Pulse Ox 98.4 F 81 18 141/66 H 91 L 08/28/18 08:00 08/28/18 10:00 08/28/18 10:00 08/28/18 10:00 08/28/18 10:00 Intake & Output 08/27/18 08/28/18 08/29/18 06:59 06:59 06:59 Intake Total 8148 5326 1426 Output Total 6628 8665 290 Balance 5795 061 6658 Weight 76.4 kg 79.5 kg General appearance: PRESENT: other - ETT in pkace, sedated, motionless Head exam: PRESENT: atraumatic Mouth exam: PRESENT: moist Extremities exam: PRESENT: +1 edema - both legs, other Skin exam: PRESENT: other - Right leg= no ulcerations idenmtified Left leg= 1.5 cm round, well healing ulceration found, no drainage or erythema Results Laboratory Results: 08/28/18 06:15 08/28/18 06:15 08/28/18 08/28/18 08/28/18 04:25 06:15 06:15 WBC 10.7 H RBC 3.81 Hgb 9.9 L Hct 30.7 L MCV 81 MCH 26.0 L MCHC 32.2 RDW 17.2 H Plt Count 295 Seg Neutrophils % Not Reportable Lymphocytes % Not Reportable Monocytes % Not Reportable Eosinophils % Not Reportable Basophils % Not Reportable Absolute Neutrophils Not Reportable Absolute Lymphocytes Not Reportable Absolute Monocytes Not Reportable Absolute Eosinophils Not Reportable Absolute Basophils Not Reportable Carbonic Acid 0.98 L HCO3/H2CO3 Ratio 21:1 ABG pH 7.43 ABG pCO2 32.5 L ABG pO2 63.7 L ABG HCO3 21.2 ABG O2 Saturation 93.2 L ABG Base Excess -2.5 FiO2 35% Sodium 134.6 L Potassium 4.9 Chloride 105 Carbon Dioxide 20 L Anion Gap 10 BUN 39 H Creatinine 1.38 H Est GFR ( Amer) 45 L Est GFR (Non-Af Amer) 37 L Glucose 310 H Calcium 8.0 L Magnesium 3.1 H Total Bilirubin 0.2 AST 9 L ALT 27 Alkaline Phosphatase 69 Total Protein 5.3 L Albumin 2.7 L 08/23/18 08/23/18 08/28/18 03:38 03:38 06:15 Creatine Kinase 181 H CK-MB (CK-2) 3.60 Troponin I < 0.012 NT-Pro-B Natriuret Pep 1560 H Impressions: Chest X-Ray 08/28/18 06:00 IMPRESSION: STABLE APPEARANCE OF THE CHEST. SUPPORT DEVICES UNCHANGED. Assessment & Plan - Diagnosis (1) Leg ulcer, left Qualifiers: Non-pressure ulcer stage: limited to breakdown of skin Qualified Code(s): L97.921 - Non-pressure chronic ulcer of unspecified part of left lower leg limited to breakdown of skin Is this a current diagnosis for this admission?: Yes - Plan Summary Plan Summary: A/ Sepsis, pneumonia, respiratory failure on a ventilator Hx of bilateral leg ulcerations, treated with Unna boot placement Upon removuval of the Unna boot from both legs, no ulcerations of the right leg identified; the left leg leg presents with a 1.5 cm round healing ulcer, clean bed, no drainage and no erythema P/ Right Leg= remove Unna boot Left leg= apply dry Telfa on small wound, cover with Kerlix, apply tape on gauze only. Replace bandage as necessary I will sign off
[2018-08-28] MEDS: ACETYLCYSTEINE 20% SOLN 800 MG/4 ML VIAL.NEB NEB SCH ×2 (13:48→19:45)
[2018-08-28] MEDS: PREGABALIN 100 MG CAPSULE NG SCH (17:41)
[2018-08-28] MEDS: ATORVASTATIN CALCIUM 10 MG TABLET NG SCH (21:39)
[2018-08-29] MEDS: IPRATROPIUM/ALBUTEROL 0.5-2.5 MG/3 ML AMPUL NEB SCH ×4 (01:31→20:10)
[2018-08-29 04:35] LABS: ABSOLUTE LYMPHOCYTES (AUTO) 0.6 10^3/uL (0.5-4.7); ABSOLUTE MONOCYTES (AUTO) 0.5 10^3/uL (0.1-1.4); ABSOLUTE NEUT (AUTO) 9.5 10^3/uL (1.7-8.2); BASOPHILS % (AUTO) 0.1 % (0-2); HEMATOCRIT 31.9 % (36.0-47.0); HEMOGLOBIN 10.2 g/dL (12.0-15.5); LYMPHOCYTES % (AUTO) 5.6 % (13-45); MEAN CORPUSCULAR HEMOGLOBIN 25.8 pg (27.0-33.4); MEAN CORPUSCULAR HGB CONC 31.8 g/dL (32.0-36.0); MEAN CORPUSCULAR VOLUME 81 fl (80-97); MONOCYTES % (AUTO) 4.6 % (3-13); PLATELET COUNT 321 10^3/uL (150-450); RED BLOOD COUNT 3.93 10^6/uL (3.72-5.28); SEGMENTED NEUTROPHILS % (AUTO) 89.7 % (42-78); TOTAL CELLS COUNTED % (AUTO) 100 %; WHITE BLOOD COUNT 10.7 10^3/uL (4.0-10.5)
[2018-08-29 04:37] LABS: ARTERIAL BLOOD BASE EXCESS -0.8 mmol/L; ARTERIAL BLOOD HCO3 22.6 mmol/L (20-24); ARTERIAL BLOOD O2 SATURATION 90.5 % (94-98); ARTERIAL BLOOD PCO2 33.1 mmHg (35-45); ARTERIAL BLOOD PH 7.45 (7.35-7.45); ARTERIAL BLOOD PO2 55.2 mmHg (80-100); ARTERIAL BLOOD TOTAL CO2 23.7 mmol/L (21-25)
[2018-08-29 04:40] LABS: ARTERIAL BLOOD FIO2 40%
[2018-08-29 04:54] LABS: ALANINE AMINOTRANSFERASE 22 U/L (9-52); ALBUMIN 2.7 g/dL (3.5-5.0); ALKALINE PHOSPHATASE 66 U/L (38-126); ANION GAP 6 (5-19); ASPARTATE AMINO TRANSFERASE 9 U/L (14-36); BILIRUBIN,DIRECT 0.2 mg/dL (0.0-0.4); BILIRUBIN,TOTAL 0.2 mg/dL (0.2-1.3); BLOOD UREA NITROGEN 40 mg/dL (7-20); CALCIUM 8.2 mg/dL (8.4-10.2); CARBON DIOXIDE 23 mmol/L (22-30); CHLORIDE 109 mmol/L (98-107); GLUCOSE 177 mg/dL (75-110); POTASSIUM 5.2 mmol/L (3.6-5.0); SODIUM 138.2 mmol/L (137-145); TOTAL PROTEIN 5.4 g/dL (6.3-8.2)
[2018-08-29] MEDS: DILTIAZEM HCL 60 MG TABLET NG SCH ×3 (05:15→22:06)
[2018-08-29] MEDS: DIAZEPAM 5 MG TABLET NG SCH ×3 (05:17→17:50)
[2018-08-29] MEDS: HEPARIN SOD (PORCINE) 5,000 UNIT/ML 1 ML SYRINGE SUBCUT SCH ×3 (05:17→22:07)
[2018-08-29] MEDS: NORMAL SALINE 1000 ML 1,000 ML IV PRN (05:56)
[2018-08-29] MEDS: ACETYLCYSTEINE 20% SOLN 800 MG/4 ML VIAL.NEB NEB SCH ×2 (07:53→20:11)
[2018-08-29] MEDS: INSULIN LISPRO 100 UNIT/ML 3 ML VIAL SUBCUT SCH ×2 (08:15→17:50)
[2018-08-29] MEDS: AZITHROMYCIN 250 MG TABLET NG SCH (08:16)
--- NOTE | 2018-08-29 08:26 | RADIOLOGY REPORT (SQ) ---
EXAM DESCRIPTION: CHEST SINGLE VIEW COMPLETED DATE/TIME: 08/29/2018 7:08 am REASON FOR STUDY: resp failure COMPARISON: Chest films 03/24/2018, 08/25/2018, 08/26/2018, 08/27/2018, 08/28/2018 EXAM PARAMETERS: NUMBER OF VIEWS: One view. TECHNIQUE: Single frontal radiographic view of the chest acquired. RADIATION DOSE: NA LIMITATIONS: None. FINDINGS: LUNGS AND PLEURA: Trace bilateral pleural effusions are present. There is patchy bibasila r airspace disease left greater than right atelectasis versus pneumonia. No pneumothorax. MEDIASTINUM AND HILAR STRUCTURES: No masses. Contour normal. HEART AND VASCULAR STRUCTURES: Heart normal in size. Normal vasculature. BONES: No acute findings. HARDWARE: Endotracheal tube tip 5 cm above the tram. Nasogastric tube tip and side port in the sto mach OTHER: No other significant finding. IMPRESSION: No change in trace bilateral pleural effusions and bibasilar airspace disease left great er than right. Endotracheal tube, nasogastric tube in good positioning. TECHNICAL DOCUMENTATION: JOB ID: [id number] [employer]- All Rights Reserved Reading location - IP/workstation name: [email or web address]
--- NOTE | 2018-08-29 08:52 | PDOC PROGRESS REPORT ---
Subjective Progress Note for:: 08/29/18 Subjective:: 72 year old female with a past medical history of insulin dependent diabetes, hypertension, severe lymphedema with stasis, chronic bronchitis, COPD, alcohol and tobacco dependence. Over the past 36 hours patient is developed a nonproductive cough, shortness of breath. Admitted to hospitalist service for COPD exacerbation. The patient was seen this afternoon on rounds, she is resting in bed on supplemental oxygen. She is very lethargic, minimally responsive. Her speech is difficult to understand, she falls asleep during the interview. Vital signs have been WNL, no evidence of hypoxia on pulse oximetry. Lung sounds relatively clear, diminished in bilateral bases. Nursing staff reports the patient received 1 dose of Ativan 0.5 mg p.o. this morning at 0630 for agitation, likely related to EtOH withdrawal. The patient states she drinks approximately 6 hard liquor cocktails per day. Stat ABG reveals hypoxic/hypercapnic respiratory acidosis (pH 7.24 CO2 67). Plan to place patient on BiPAP and upgraded to IMCU. 08/26/[id number]-old female has abnormal ABG yesterday evening and she has a difficulty in breathing become tachypneic tachycardic the ABG was abnormal on BiPAP so she was intubated and transferred to ICU. No acute events since last night. Today's labs are pending. Chest x-ray shows bilateral opacification in the right hemithorax and left hemithorax. Currently patient is on propofol 35 mg and 8140 mg/h for sedation and she is on SIMV with rate of 20 PEEP of 5 oxygen saturation of 60% tidal volume of 500 ABG done this morning shows pH of 7.39/PCO2 39.5/PO2 99 bicarb is 23.6. Plan is to decrease oxygen requirements today. And also decrease the sedation today. 08/27/2018 patient is still intubated on SIMV with 35% oxygen PEEP of 5 rate of 20 tidal volume of 500. ABG done this morning is a little bit mixed ABG pH is 7.38 PCO2 37.8 PO2 63.4 bicarb is 22. Chest x-ray done yesterday shows bilateral opacifications on a Zithromax and ceftriaxone blood cultures are negative so far. Patient's hemoglobin A1c came back 10.8 plan is to stop metformin today increased Lantus to 35 units twice a day and decreased IV Solu-Medrol from 40 mg every 8 hours to every 12 hours today. Patient is afebrile. Blood pressure is 130/65 and IV fluids are discontinued. Patient is not on any pressure support. pt is receiving NG tube feeds from yesterday. Patient is presently on Ativan 2 mg/h and deprivan 30 mcg/kg/min. 08/28/2018-no acute events in the last 24 hours. Patient is afebrile. 72-year-old female with history of insulin-dependent diabetes mellitus hypertension, COPD, alcohol dependency, tobacco dependency lymphedema with stasis chronic bronchitis admitted for shortness of breath and nonproductive cough she was transferred to the ICU and intubated because of the abnormal ABG and change in mental status with tachypnea and tachycardia. No acute events in the last 24 hours. Afebrile. Still on mechanical ventilation. This morning patient is on 45% oxygen with PEEP of 5 respiratory rate of 20 tidal volume of 500. Process started from yesterday. Chest x-ray done yesterday suggestive of bilateral lower lobe infiltrates. Cultures are negative so far. Patient is presently on azithromycin and ceftriaxone. Sugars are running high more than 300 because patient is on IV Solu-Medrol 40 mg every 12 hours. [employer] is 1566. Echocardiogram was done that was available from 2016 indicates patient might have a grade 2/grade 3 diastolic dysfunction. Pressure this morning is 124/60. Patient is on sedation with Ativan at 2 mg/h to prevent at 25 mcg/kg/min. She is receiving NG tube feeds. 08/29/[id number]-cdnf-old female admitted to ICU from the medical floor for respiratory distress and abnormal ABG with PCO2 retention. No acute events in the last 24 hours. Patient is afebrile. Presently she is off the sedations. Still on mechanical ventilation oxygen saturation of 40% PEEP of 5 respiratory rate of 10 tidal volume of 500. Plan to wean her off today. Chest x-ray shows trace bilateral pleural effusions and bibasilar airspace opacifications. Reason For Visit: COPD EXACERBATION PNEUMONIA,DM,LEFT DM LUNG ULCER Physical Exam Vital Signs: Temp Pulse Resp BP Pulse Ox 99.0 F 79 20 144/73 H 95 08/29/18 08:00 08/29/18 08:00 08/29/18 08:00 08/29/18 08:00 08/29/18 08:00 Intake & Output 08/28/18 08/29/18 08/30/18 06:59 06:59 06:59 Intake Total 2366 2644 91 Output Total 1485 1390 300 Balance 881 1254 -209 Weight 79.5 kg 80 kg General appearance: PRESENT: thin, other - On mechanical ventilation. Off sedation at this point. Head exam: PRESENT: atraumatic Eye exam: PRESENT: PERRLA Mouth exam: PRESENT: moist, tongue midline Neck exam: ABSENT: carotid bruit, JVD, lymphadenopathy, thyromegaly Respiratory exam: PRESENT: decreased breath sounds Cardiovascular exam: PRESENT: tachycardia Vascular exam: PRESENT: normal capillary refill GI/Abdominal exam: PRESENT: normal bowel sounds, soft, other - NG tube in place receiving the NG tube feedings.. ABSENT: distended, guarding, mass, organolmegaly, rebound, tenderness Extremities exam: PRESENT: other - Peripheral pulses are poor. Neurological exam: PRESENT: other - Patient is on mechanical ventilation sedation was stopped at 10 minutes ago. Unable to do neuro examination.. ABSENT: motor sensory deficit Results Laboratory Results: 08/29/18 03:18 08/29/18 03:18 08/29/18 08/29/18 08/29/18 03:18 03:18 04:27 WBC 10.7 H RBC 3.93 Hgb 10.2 L Hct 31.9 L MCV 81 MCH 25.8 L MCHC 31.8 L RDW 17.0 H Plt Count 321 Seg Neutrophils % 89.7 H Lymphocytes % 5.6 L Monocytes % 4.6 Eosinophils % 0.0 Basophils % 0.1 Absolute Neutrophils 9.5 H Absolute Lymphocytes 0.6 Absolute Monocytes 0.5 Absolute Eosinophils 0.0 Absolute Basophils 0.0 Carbonic Acid 1.00 L HCO3/H2CO3 Ratio 22:1 ABG pH 7.45 ABG pCO2 33.1 L ABG pO2 55.2 L ABG HCO3 22.6 ABG O2 Saturation 90.5 L ABG Base Excess -0.8 FiO2 40% Sodium 138.2 Potassium 5.2 H Chloride 109 H Carbon Dioxide 23 Anion Gap 6 BUN 40 H Creatinine 1.20 Est GFR ( Amer) 53 L Est GFR (Non-Af Amer) 44 L Glucose 177 H Calcium 8.2 L Magnesium 2.9 H Total Bilirubin 0.2 AST 9 L ALT 22 Alkaline Phosphatase 66 Total Protein 5.4 L Albumin 2.7 L 08/23/18 08/23/18 08/28/18 03:38 03:38 06:15 Creatine Kinase 181 H CK-MB (CK-2) 3.60 Troponin I < 0.012 NT-Pro-B Natriuret Pep 1560 H 08/29/18 03:18 Creatine Kinase CK-MB (CK-2) Troponin I NT-Pro-B Natriuret Pep 1400 H Impressions: Chest X-Ray 08/29/18 06:00 IMPRESSION: No change in trace bilateral pleural effusions and bibasilar airspace disease left greater than right. Endotracheal tube, nasogastric tube in good positioning. Assessment and Plan - Diagnosis (1) Acute respiratory failure with hypoxia Is this a current diagnosis for this admission?: Yes Plan: Worsening Secondary to COPD exacerbation stemming from pneumonia Patient very lethargic and minimally responsive today ABG demonstrates hypoxic and hypercarbic respiratory acidosis PRN and scheduled nebulizer treatments Empiric antibiotic coverage Supplemental oxygen for SPO2>88% Plan for BiPAP today Follow-up ABG tonight Upgrade to IMCU 08/26/2018-patient was transferred to ICU yesterday evening for respiratory distress and abnormal ABG with pH of 7.2 PCO2 was 74.6 and she was intubated in third floor transferred to ICU here. Presently she is on SIMV with tidal volume of 500 PEEP of 5 and 50% oxygen with rate of 20 ABG shows pH of 7.39/PCO2 39.5 PO2 99 bicarb is 23.6 much improved compared to the ABG yesterday. Chest x-ray shows bilateral opacification in the right and left hemithorax. Patient is also on antibiotic therapy. She did is presently on ceftriaxone and Zithromax. plan is to do the blood cultures today. 08/27/2018-patient developed acute on chronic respiratory failure with hypoxia m ost likely secondary to underlying pneumonia. Blood cultures negative so far. Patient is on ceftriaxone and aspirin. Patient may be aspirated. Possible organisms likely to be gram-negative organisms. ABG on 40% oxygen this morning pH is 7.38/PCO2 37.8/PO2 63.4 bicarb is 22. Patient is also on IV Solu-Medrol 40 mg every 8 hours and it was decreased to every 12 hours today. Plan is to repeat the ABG tomorrow. Plan is to do the chest x-rays on daily basis. From today Trying to gradually wean off the sedation. 08/28/2018-patient was intubated for acute on chronic respiratory failure with hypoxia. With probable underlying pneumonia. Chest x-ray yesterday shows bilateral lower lobe infiltrates. Patient is presently on azithromycin and ceftriaxone. Blood cultures are negative. ABG done on 35% this morning shows pH of 7.4/PCO2 32/PCO2 of 63 oxygen saturation of 93%. Patient is also on IV Solu-Medrol 40 mg every 12 hours and it was decreased to daily today. Plan to do the ABGs and chest x-rays on daily basis. BC count is normal 10.7. On mechanical ventilation with PEEP of 5 respiratory of 20 tidal volume of 500 and oxygen of 45%. On Ativan 2 mg/h and propofol 25 mcg/kg/min for sedation. 08/29/2018-patient still on mechanical ventilation SIMV with respiratory rate of 20 tidal volume of 500 PEEP of 40% oxygen. Chest x-ray shows small bilateral pleural effusions with bibasilar opacifications. Patient is off the sedation at this point try to wean her off today. Blood cultures are negative. culture shows rare gram-positive cocci. Plan IV Solu-Medrol 40 mg daily. (2) COPD exacerbation Is this a current diagnosis for this admission?: Yes Plan: 08/25/2018-patient has a COPD admitted for COPD exacerbation. Presently she is intubated. 08/27/2018-patient has history of COPD admitted for COPD exacerbation. Presently on mechanical ventilation on sedation. Chest x-ray shows COPD and and bilateral opacifications suggestive of possible aspiration pneumonia. Currently on Zithromax and ceftriaxone. Afebrile. Blood cultures are negative so far. 08/28/2018-patient has history of COPD secondary to chronic smoking. Presently on mechanical ventilation and sedation. Chest x-ray suggestive of airspace disease in both lung garrison at the lower lobes. Blood cultures are negative afebrile presently on azithromycin and Rocephin. 08/29/2018-patient has history of COPD secondary to chronic smoking. On IV Solu- Medrol 40 mg daily. Still on mechanical ventilation plan to wean her off today. Chest x-ray shows small bibasilar pleural effusions and small airspace opacifications in both lung garrison at the lower bases. Sputum culture shows rare gram-positive cocci. (3) Pneumonia Qualifiers: Laterality: left Lung location: lower lobe of lung Is this a current diagnosis for this admission?: Yes Plan: As seen on CXR Azithromycin and ceftriaxone for community-acquired pneumonia Supplemental O2 for SPO2>88% Plan for BiPAP today, follow-up ABG tonight 08/25/2018-chest x-ray shows bilateral opacifications presently on ceftriaxone and azithromycin for community-acquired pneumonia. Presently she is intubated. To the blood cultures and sputum cultures if possible. Patient had most likely community-acquired pneumonia and gram-positive organisms are responsible. 08/27/2018-chest x-ray shows bilateral opacifications patient is presently on IV ceftriaxone and azithromycin for possible aspiration pneumonia probably gram- negative organisms. Plan is to continue the present management. 08/28/2018-latest chest x-ray suggestive of airspace disease in both lower lobes. Most likely healthcare associated pneumonia/aspiration pneumonia. Afebrile. Blood cultures are negative. Blood pressures are stable. On IV ceftriaxone and azithromycin plan is to continue the present management. Probably gram-negative organisms responsible for pneumonia. 08/29/2018-patient admitted to ICU for respiratory failure status post intubation most likely secondary to COPD exacerbation and possible aspiration pneumonia. Blood cultures are negative. Presently on IV Rocephin and IV Zithromax. Most likely gram-negative organism responsible for pneumonia. (4) Tobacco abuse Is this a current diagnosis for this admission?: Yes (5) Alcohol use disorder Is this a current diagnosis for this admission?: Yes (6) Diabetes mellitus Is this a current diagnosis for this admission?: Yes Plan: Poor compliance Hemoglobin A1c 10% Accu-Cheks ACHS Humalog sliding scale insulin 08/26/2018-patient has history of diabetes mellitus type 2, hemoglobin A1c is 10% presently on Accu-Cheks before meals and at bedtime with sliding scale we going to change the blood sugars check to every 6 hours. 08/27/2018-hemoglobin A1c came back 10.8 latest blood sugar is 370 patient is on metformin thousand milligrams p.o. twice daily Lantus 25 units subcu twice daily , plan is to increase the dose of Lantus to 35 units twice a day and discontinue metformin. Patient is on IV Solu-Medrol 40 mg every 8 hours plan to decrease the dose to every 12 hours. 08/28/2018-patient's latest blood sugar is 310 on IV Solu-Medrol 40 mg every 12 hours, receiving Lantus 25 units subcu twice a day along with insulin sliding scale every 6 hours. Plan to decrease the Solu-Medrol to 40 mg once a day. Continue the present management. Hemoglobin A1c is 10.8. Once she is extubated dietary advice will be provided. 08/29/2018-patient latest blood sugar is 177 on IV Solu-Medrol 40 mg daily, receiving Lantus 25 units subcu twice a day along with insulin sliding scale every 6 hours. Patient is on NG tube feeds. Hemoglobin A1c is 10.8. plan is to continue the present management. (7) Diabetic leg ulcer Is this a current diagnosis for this admission?: Yes Plan: Lymphedema, peripheral vascular disease, severe hyperkeratosis Surgery consulted Recommend bilateral Unna boots Placed yesterday by Dr. Nava 08/26/2018-patient has history of lymphedema, peripheral vascular disease and severe hyperkeratosis. As per surgery patient is on a Unna boot's. Plan is to continue the present management. 08/27/2018-patient has chronic lymphedema, peripheral vascular disease she is in a Unna boot as per surgical recommendations. 08/28/2018-patient has chronic lymphedema with stasis in the lower extremities associated with peripheral vascular disease. She has also severe hyperkeratosis. There is absence of the left big toe. Call was placed to the surgeons for a Unna boot placement. [phone]-patient has a chronic lymphedema with stasis of the lower extremities and she has peripheral vascular disease hyperkeratosis of the skin in the lower extremities. As per surgical recommendations will be on intervals. (8) Anemia Qualifiers: Anemia type: iron deficiency Iron deficiency anemia type: inadequate dietary iron intake Qualified Code(s): D50.8 - Other iron deficiency anemias Is this a current diagnosis for this admission?: No Plan: 08/26/2018-patient has history of anemia of chronic disease hemoglobin is 8.9. It probably secondary to chronic kidney disease. 08/27/2018-patient has history of anemia of chronic disease hemoglobin dropped to 7.7 yesterday status post 2 units of blood transfusion and hemoglobin came up to 9.7 today. Because of acute blood loss anemia is unknown at this moment. 08/28/2018-patient hemoglobin is 9.9 after 2 units of blood transfusion. Patient has anemia of chronic disease most likely secondary to CKD. 08/29/2018-patient hemoglobin is 10.2. She received 2 units of PRBC. Anemia of chronic disease most likely secondary to CKD. (9) CKD (chronic kidney disease) Is this a current diagnosis for this admission?: No Plan: 08/26/2018-patient creatinine is 1.51, patient's baseline creatinine is around 1.2-1.30. Acute on chronic kidney injury may be secondary to poor oral intake. plan is to check the CMP/ kidney function tomorrow. 08/27/2018-patient's creatinine today 1.26 baseline creatinine is around 1.2-1.3 acute on chronic kidney injury most likely secondary to poor oral intake resolving. She was started back on NG tube feedings from yesterday. Her output is more than 1 L. 08/28/2018-patient's baseline creatinine is between 1.2-1.3 today is 1.38. Acute kidney injury is resolved. On IV fluids at 30 cc/h and receiving NG tube feedings also. Output is good input is 2.3 L output is 1480 cc. With positive balance of 887. 08/29/2018-patient's baseline creatinine is around 1.2-1.3 today her creatinine is around 1.2 kidney function is back to baseline acute kidney injury is resolving. (10) Hyponatremia Is this a current diagnosis for this admission?: Yes Plan: 08/27/2018-patient's serum sodium level today is 132.8. Blood sugar is 370. Corrected sodium probably around 136. Hyponatremia is resolved. 08/28/2018-in the chemistry serum sodium is 134.6, serum glucose is 310 corrected sodium is around 137. Hyponatremia is resolved. 08/29/2018-patient's serum sodium is 138 today hyponatremia is resolved. - Time Time Spent with patient: 15-24 minutes Smoking Cessation Education: over 10 minutes Medications reviewed and adjusted accordingly: Yes Anticipated discharge: SNF
[2018-08-29] MEDS: METHYLPREDNISOLONE INJ 40 MG/1 ML SDV IV SCH (10:59)
[2018-08-29] MEDS: INSULIN GLARGINE,HUM.REC.ANLOG 1,000 UNIT/10 ML VIAL SUBCUT SCH ×2 (11:02→22:07)
[2018-08-29] MEDS: VENLAFAXINE HCL 75 MG TABLET NG SCH ×2 (11:04→22:05)
[2018-08-29] MEDS: CEFTRIAXONE SODIUM 1,000 MG in DEXTROSE 5%-WATER 50 ML IV SCH (11:07)
[2018-08-29] MEDS: FLUTICASONE NASAL SPRAY 50 MCG/SPRY 120 SPRAY/16 GM NASL SCH ×2 (11:10→22:09)
[2018-08-29] MEDS: NICOTINE 7 MG/24 HR PATCH.TD24 TD SCH (11:12)
[2018-08-29] MEDS ORDERED: GLUCAGON,HUMAN RECOMB 1 MG INJ IM PRN (12:30)
[2018-08-29] MEDS ORDERED: DEXTROSE 50%-WATER SYRINGE 25 GM/50 ML DOSE IV PRN (12:30)
[2018-08-29] MEDS ORDERED: DEXTROSE 40% GEL 15 GM TUBE PO PRN (12:30)
[2018-08-29] MEDS ORDERED: DEXTROSE 50%-WATER SYRINGE 12.5 GM/25 ML DOSE IV PRN (12:30)
[2018-08-29] MEDS ORDERED: DEXTROSE 40% GEL 15 GM TUBE X 2 PO PRN (12:30)
[2018-08-29] MEDS: PANTOPRAZOLE SODIUM 40 MG VIAL IV SCH (12:33)
[2018-08-29] MEDS: PREGABALIN 100 MG CAPSULE NG SCH (17:50)
[2018-08-29] MEDS: ATORVASTATIN CALCIUM 10 MG TABLET NG SCH (22:06)
[2018-08-30] MEDS: DIAZEPAM 5 MG TABLET NG SCH ×4 (00:04→17:12)
[2018-08-30] MEDS: INSULIN LISPRO 100 UNIT/ML 3 ML VIAL SUBCUT SCH ×4 (00:05→17:12)
[2018-08-30] MEDS: IPRATROPIUM/ALBUTEROL 0.5-2.5 MG/3 ML AMPUL NEB SCH ×4 (02:35→20:31)
[2018-08-30 04:13] LABS: ABSOLUTE LYMPHOCYTES (AUTO) 0.9 10^3/uL (0.5-4.7); ABSOLUTE MONOCYTES (AUTO) 0.7 10^3/uL (0.1-1.4); ABSOLUTE NEUT (AUTO) 9.5 10^3/uL (1.7-8.2); BASOPHILS % (AUTO) 0.1 % (0-2); HEMATOCRIT 34.6 % (36.0-47.0); HEMOGLOBIN 10.8 g/dL (12.0-15.5); LYMPHOCYTES % (AUTO) 7.9 % (13-45); MEAN CORPUSCULAR HEMOGLOBIN 25.2 pg (27.0-33.4); MEAN CORPUSCULAR HGB CONC 31.3 g/dL (32.0-36.0); MEAN CORPUSCULAR VOLUME 81 fl (80-97); MONOCYTES % (AUTO) 5.9 % (3-13); PLATELET COUNT 325 10^3/uL (150-450); RED BLOOD COUNT 4.29 10^6/uL (3.72-5.28); RED CELL DISTRIBUTION WIDTH 16.9 % (11.5-14.0); SEGMENTED NEUTROPHILS % (AUTO) 86.1 % (42-78); TOTAL CELLS COUNTED % (AUTO) 100 %
[2018-08-30 04:44] LABS: ALANINE AMINOTRANSFERASE 22 U/L (9-52); ALBUMIN 2.9 g/dL (3.5-5.0); ALKALINE PHOSPHATASE 65 U/L (38-126); ANION GAP 5 (5-19); ASPARTATE AMINO TRANSFERASE 15 U/L (14-36); BILIRUBIN,DIRECT 0.3 mg/dL (0.0-0.4); BILIRUBIN,TOTAL 0.4 mg/dL (0.2-1.3); BLOOD UREA NITROGEN 39 mg/dL (7-20); CALCIUM 8.6 mg/dL (8.4-10.2); CARBON DIOXIDE 25 mmol/L (22-30); CHLORIDE 109 mmol/L (98-107); GLUCOSE 99 mg/dL (75-110); POTASSIUM 5.4 mmol/L (3.6-5.0); SODIUM 139.1 mmol/L (137-145); TOTAL PROTEIN 5.5 g/dL (6.3-8.2)
[2018-08-30] MEDS: DILTIAZEM HCL 60 MG TABLET NG SCH ×3 (06:15→21:43)
[2018-08-30] MEDS: HEPARIN SOD (PORCINE) 5,000 UNIT/ML 1 ML SYRINGE SUBCUT SCH ×3 (06:16→21:44)
[2018-08-30 06:32] LABS: ARTERIAL BLOOD BASE EXCESS 1.7 mmol/L; ARTERIAL BLOOD H2CO3 1.07 mmol/L (1.05-1.35); ARTERIAL BLOOD HCO3 25.1 mmol/L (20-24); ARTERIAL BLOOD O2 SATURATION 95.7 % (94-98); ARTERIAL BLOOD PCO2 35.4 mmHg (35-45); ARTERIAL BLOOD PH 7.47 (7.35-7.45); ARTERIAL BLOOD PO2 73.5 mmHg (80-100); ARTERIAL BLOOD TOTAL CO2 26.2 mmol/L (21-25)
[2018-08-30 06:33] LABS: ARTERIAL BLOOD FIO2 40%
--- NOTE | 2018-08-30 07:05 | RADIOLOGY REPORT (SQ) ---
EXAM DESCRIPTION: XR CHEST 1 VIEW COMPLETED DATE/TME: 08/30/2018 06:00 CLINICAL HISTORY: 72 years Female, resp failure COMPARISON: One day prior. NUMBER OF VIEWS/TECHNIQUE: 1/AP FINDINGS: Bilateral lower thoracic opacity/effusion. Moderate central edema pattern.Adequate appearing endotracheal tube. Adequate appearing enteric tube partially obscured. Atherosclerotic vascular disease. Normal cardiac silhouette size. No pneumothorax. Stable bony thorax. IMPRESSION: No significant change.
[2018-08-30] MEDS: ACETYLCYSTEINE 20% SOLN 800 MG/4 ML VIAL.NEB NEB SCH ×2 (07:30→20:31)
[2018-08-30] MEDS ORDERED: FUROSEMIDE INJ/PF 40 MG/4 ML SDV IV SCH (10:00)
[2018-08-30] MEDS: NICOTINE 7 MG/24 HR PATCH.TD24 TD SCH (10:41)
[2018-08-30] MEDS: CEFTRIAXONE SODIUM 1,000 MG in DEXTROSE 5%-WATER 50 ML IV SCH (10:43)
[2018-08-30] MEDS: AZITHROMYCIN 250 MG TABLET NG SCH (10:43)
[2018-08-30] MEDS: INSULIN GLARGINE,HUM.REC.ANLOG 1,000 UNIT/10 ML VIAL SUBCUT SCH ×2 (10:44→22:15)
[2018-08-30] MEDS: FLUTICASONE NASAL SPRAY 50 MCG/SPRY 120 SPRAY/16 GM NASL SCH ×2 (10:44→21:43)
[2018-08-30] MEDS: METHYLPREDNISOLONE INJ 40 MG/1 ML SDV IV SCH (10:44)
[2018-08-30] MEDS: FUROSEMIDE INJ/PF 20 MG/2 ML SDV IV SCH ×2 (10:44→21:42)
[2018-08-30] MEDS: PANTOPRAZOLE SODIUM 40 MG VIAL IV SCH (10:44)
[2018-08-30] MEDS: VENLAFAXINE HCL 75 MG TABLET NG SCH ×2 (10:44→21:43)
--- NOTE | 2018-08-30 11:42 | PDOC PROGRESS REPORT ---
Subjective Progress Note for:: 08/30/18 Subjective:: This is a 72 year old female with a past medical history of insulin dependent diabetes, hypertension, severe lymphedema with stasis, chronic bronchitis, COPD, alcohol and tobacco dependence who initially presented with nonproductive cough and increasing shortness of breath. She was admitted for COPD exacerbation and pneumonia. She developed hpyoxia and hypercarbia and was placed on BIPAP. She was subsequently intubated on 08/26 due to increasing SOB and pertinent acute combined respiratory failure. No acute event overnight. Minimal secretions from the ET. Currently on minimal vent settings. Will start weaning trial today. Reason For Visit: COPD EXACERBATION PNEUMONIA,DM,LEFT DM LUNG ULCER Physical Exam Vital Signs: Temp Pulse Resp BP Pulse Ox 99.0 F 83 12 150/80 H 89 L 08/30/18 10:00 08/30/18 10:00 08/30/18 10:00 08/30/18 10:00 08/30/18 10:00 Intake & Output 08/29/18 08/30/18 08/31/18 06:59 06:59 06:59 Intake Total 2644 439 Output Total 1390 2180 570 Balance 1254 -1741 -570 Weight 176 lb 5.917 oz 169 lb 15.622 oz General appearance: PRESENT: no acute distress, well-developed, well-nourished, other - intubated Eye exam: PRESENT: conjunctiva pink, EOMI, PERRLA. ABSENT: scleral icterus Ear exam: PRESENT: normal external ear exam Mouth exam: PRESENT: moist, tongue midline Neck exam: ABSENT: carotid bruit, JVD, lymphadenopathy, thyromegaly Respiratory exam: PRESENT: rhonchi. ABSENT: rales, wheezes Cardiovascular exam: PRESENT: RRR. ABSENT: diastolic murmur, rubs, systolic murmur Pulses: PRESENT: normal dorsalis pedis pul GI/Abdominal exam: PRESENT: normal bowel sounds, soft. ABSENT: distended, guarding, mass, organolmegaly, rebound, tenderness Rectal exam: PRESENT: deferred Neurological exam: PRESENT: CN II-XII grossly intact, other - intubated, sedated. ABSENT: motor sensory deficit Results Laboratory Results: 08/30/18 03:35 08/30/18 03:35 08/30/18 08/30/18 08/30/18 03:35 03:35 06:15 WBC 11.0 H RBC 4.29 Hgb 10.8 L Hct 34.6 L MCV 81 MCH 25.2 L MCHC 31.3 L RDW 16.9 H Plt Count 325 Seg Neutrophils % 86.1 H Lymphocytes % 7.9 L Monocytes % 5.9 Eosinophils % 0.0 Basophils % 0.1 Absolute Neutrophils 9.5 H Absolute Lymphocytes 0.9 Absolute Monocytes 0.7 Absolute Eosinophils 0.0 Absolute Basophils 0.0 Carbonic Acid 1.07 HCO3/H2CO3 Ratio 23:1 ABG pH 7.47 H ABG pCO2 35.4 ABG pO2 73.5 L ABG HCO3 25.1 H ABG O2 Saturation 95.7 ABG Base Excess 1.7 FiO2 40% Sodium 139.1 Potassium 5.4 H Chloride 109 H Carbon Dioxide 25 Anion Gap 5 BUN 39 H Creatinine 1.09 Est GFR ( Amer) > 60 Est GFR (Non-Af Amer) 49 L Glucose 99 Calcium 8.6 Magnesium 2.5 H Total Bilirubin 0.4 AST 15 ALT 22 Alkaline Phosphatase 65 Total Protein 5.5 L Albumin 2.9 L 08/28/18 08:20 Sputum Gram Stain - Final 08/28/18 08:20 Sputum Sputum Culture - Final C.albicans/C.dubliniensis Greatly Reduced Normal Isamar 08/23/18 08/23/18 08/28/18 03:38 03:38 06:15 Creatine Kinase 181 H CK-MB (CK-2) 3.60 Troponin I < 0.012 NT-Pro-B Natriuret Pep 1560 H 08/29/18 03:18 Creatine Kinase CK-MB (CK-2) Troponin I NT-Pro-B Natriuret Pep 1400 H Impressions: Chest X-Ray 08/30/18 06:00 IMPRESSION: No significant change. Assessment and Plan - Diagnosis (1) Acute respiratory failure with hypoxia and hypercapnia Is this a current diagnosis for this admission?: Yes Plan: Secondary to COPD exacerbation and pneumonia. Currently intubated. Will attempt to initiate weaning trial today, (2) COPD exacerbation Is this a current diagnosis for this admission?: Yes Plan: Continue solumedrol and breathing treatments. (3) Pneumonia Is this a current diagnosis for this admission?: Yes Plan: Continue azithromycin and Rocephin. (4) Diabetes mellitus Is this a current diagnosis for this admission?: Yes Plan: Hemoglobin A1c 10%. Sugars at goal. Continue Lantus and sliding scale. - Time Time Spent with patient: 25-34 minutes
[2018-08-30] MEDS: HYDRALAZINE HCL INJ/PF 20 MG/1 ML SDV IV PRN ×2 (14:46→21:43)
[2018-08-30] MEDS: PREGABALIN 100 MG CAPSULE NG SCH (17:12)
[2018-08-30] MEDS: ATORVASTATIN CALCIUM 10 MG TABLET NG SCH (21:43)
[2018-08-31] MEDS: INSULIN LISPRO 100 UNIT/ML 3 ML VIAL SUBCUT SCH ×4 (00:30→17:49)
[2018-08-31] MEDS: DIAZEPAM 5 MG TABLET NG SCH ×4 (00:31→17:26)
[2018-08-31] MEDS: IPRATROPIUM/ALBUTEROL 0.5-2.5 MG/3 ML AMPUL NEB SCH ×4 (02:28→20:14)
[2018-08-31 03:48] LABS: HEMATOCRIT 37.1 % (36.0-47.0); HEMOGLOBIN 11.7 g/dL (12.0-15.5); MEAN CORPUSCULAR HEMOGLOBIN 24.9 pg (27.0-33.4); MEAN CORPUSCULAR HGB CONC 31.4 g/dL (32.0-36.0); MEAN CORPUSCULAR VOLUME 79 fl (80-97); PLATELET COUNT 332 10^3/uL (150-450); RED BLOOD COUNT 4.67 10^6/uL (3.72-5.28); RED CELL DISTRIBUTION WIDTH 17.6 % (11.5-14.0); WHITE BLOOD COUNT 12.5 10^3/uL (4.0-10.5)
[2018-08-31 04:05] LABS: ALANINE AMINOTRANSFERASE 24 U/L (9-52); ALKALINE PHOSPHATASE 64 U/L (38-126); ASPARTATE AMINO TRANSFERASE 19 U/L (14-36); BILIRUBIN,DIRECT 0.3 mg/dL (0.0-0.4); BILIRUBIN,TOTAL 0.5 mg/dL (0.2-1.3); BLOOD UREA NITROGEN 40 mg/dL (7-20); CALCIUM 8.7 mg/dL (8.4-10.2); CARBON DIOXIDE 27 mmol/L (22-30); CHLORIDE 107 mmol/L (98-107); GLUCOSE 111 mg/dL (75-110); POTASSIUM 4.6 mmol/L (3.6-5.0); SODIUM 138.4 mmol/L (137-145); TOTAL PROTEIN 5.7 g/dL (6.3-8.2)
[2018-08-31 04:18] LABS: ABSOLUTE LYMPHOCYTES# (MANUAL) 1.6 10^3/uL (0.5-4.7); ABSOLUTE NEUTROPHILS# (MANUAL) 9.9 10^3/uL (1.7-8.2); BASOPHILS % (MANUAL) 0 % (0-2); EOSINOPHILS % (MANUAL) 0 % (0-6); LYMPHOCYTES % (MANUAL) 12 % (13-45); MONOCYTES % (MANUAL) 8 % (3-13); SEGMENTED NEUTROPHILS % (MAN) 79 % (42-78); TOTAL CELLS COUNTED 100; TOXIC GRANULATION 1+
[2018-08-31 04:19] LABS: ANISOCYTOSIS 1+; HYPOCHROMASIA 1+; PLATELET COMMENT ADEQUATE
[2018-08-31 04:23] LABS: ANION GAP 5 (5-19)
[2018-08-31 04:57] LABS: ARTERIAL BLOOD BASE EXCESS 5.3 mmol/L; ARTERIAL BLOOD H2CO3 1.01 mmol/L (1.05-1.35); ARTERIAL BLOOD HCO3 27.8 mmol/L (20-24); ARTERIAL BLOOD O2 SATURATION 95.7 % (94-98); ARTERIAL BLOOD PCO2 33.6 mmHg (35-45); ARTERIAL BLOOD PH 7.54 (7.35-7.45); ARTERIAL BLOOD PO2 69.1 mmHg (80-100); ARTERIAL BLOOD TOTAL CO2 28.8 mmol/L (21-25)
[2018-08-31 04:59] LABS: ARTERIAL BLOOD FIO2 40%
[2018-08-31] MEDS: DILTIAZEM HCL 60 MG TABLET NG SCH ×3 (05:37→22:07)
[2018-08-31] MEDS: HEPARIN SOD (PORCINE) 5,000 UNIT/ML 1 ML SYRINGE SUBCUT SCH ×3 (05:38→22:07)
--- NOTE | 2018-08-31 06:45 | RADIOLOGY REPORT (SQ) ---
EXAM DESCRIPTION: XR CHEST 1 VIEW COMPLETED DATE/TME: 08/31/2018 06:00 CLINICAL HISTORY: 72 years Female, pna/resp failure COMPARISON: One day prior. NUMBER OF VIEWS/TECHNIQUE: 1/AP FINDINGS: Large opacity-effusion of the left lower hemithorax. A small opacity-effusion of the right lower hemithorax. Mild interstitial markings.Atherosclerotic vascular disease. Adequate appearing endotracheal tube. Adequate appearing enteric tube partially obscured. Normal cardiac silhouette size. No pneumothorax. Stable bony thorax. IMPRESSION: No significant change.
[2018-08-31] MEDS: ACETYLCYSTEINE 20% SOLN 800 MG/4 ML VIAL.NEB NEB SCH ×2 (07:48→20:14)
[2018-08-31] MEDS: CEFTRIAXONE SODIUM 1,000 MG in DEXTROSE 5%-WATER 50 ML IV SCH (09:06)
[2018-08-31] MEDS: PANTOPRAZOLE SODIUM 40 MG VIAL IV SCH (09:13)
[2018-08-31] MEDS: FUROSEMIDE INJ/PF 20 MG/2 ML SDV IV SCH ×2 (09:13→22:06)
[2018-08-31] MEDS: METHYLPREDNISOLONE INJ 40 MG/1 ML SDV IV SCH (09:13)
[2018-08-31] MEDS: VENLAFAXINE HCL 75 MG TABLET NG SCH ×2 (09:14→22:07)
[2018-08-31] MEDS: AZITHROMYCIN 250 MG TABLET NG SCH (09:14)
[2018-08-31] MEDS: FLUTICASONE NASAL SPRAY 50 MCG/SPRY 120 SPRAY/16 GM NASL SCH ×2 (09:17→22:06)
[2018-08-31] MEDS: NICOTINE 7 MG/24 HR PATCH.TD24 TD SCH (09:18)
[2018-08-31] MEDS: INSULIN GLARGINE,HUM.REC.ANLOG 1,000 UNIT/10 ML VIAL SUBCUT SCH ×2 (09:18→22:08)
[2018-08-31] MEDS ORDERED: DEXAMETHASONE SOD PHOSPHATE INJ 4 MG/1 ML VIAL IV ONE (10:30)
--- NOTE | 2018-08-31 14:36 | PDOC PROGRESS REPORT ---
Subjective Progress Note for:: 08/31/18 Subjective:: This is a 72 year old female with a past medical history of insulin dependent diabetes, hypertension, severe lymphedema with stasis, chronic bronchitis, COPD, alcohol and tobacco dependence who initially presented with nonproductive cough and increasing shortness of breath. She was admitted for COPD exacerbation and pneumonia. She developed hpyoxia and hypercarbia and was placed on BIPAP. She was subsequently intubated on 08/26 due to increasing SOB and pertinent acute combined respiratory failure. 08/30: Minimal secretions from the ET. Currently on minimal vent settings. Will start weaning trial today. 08/31: No acute event overnight. She did well on weaning trial this morning and just got extubated. She si doing well so far on BIPAP. Reason For Visit: COPD EXACERBATION PNEUMONIA,DM,LEFT DM LUNG ULCER Physical Exam Vital Signs: Temp Pulse Resp BP Pulse Ox 98.6 F 82 13 147/77 H 97 08/31/18 12:00 08/31/18 14:01 08/31/18 14:03 08/31/18 14:00 08/31/18 14:03 Intake & Output 08/30/18 08/31/18 09/01/18 06:59 06:59 06:59 Intake Total 439 80 50 Output Total 2180 4545 1150 Balance -5763 -8475 -4899 Weight 169 lb 15.622 oz 160 lb 7.944 oz General appearance: PRESENT: no acute distress, well-developed, well-nourished Head exam: PRESENT: atraumatic, normocephalic Eye exam: PRESENT: conjunctiva pink, EOMI, PERRLA. ABSENT: scleral icterus Ear exam: PRESENT: normal external ear exam Mouth exam: PRESENT: moist, tongue midline Neck exam: ABSENT: carotid bruit, JVD, lymphadenopathy, thyromegaly Respiratory exam: PRESENT: rhonchi. ABSENT: wheezes Cardiovascular exam: PRESENT: RRR. ABSENT: diastolic murmur, rubs, systolic murmur Pulses: PRESENT: normal dorsalis pedis pul GI/Abdominal exam: PRESENT: normal bowel sounds, soft. ABSENT: distended, guarding, mass, organolmegaly, rebound, tenderness Rectal exam: PRESENT: deferred Neurological exam: PRESENT: alert, awake, oriented to person, oriented to place, CN II-XII grossly intact. ABSENT: motor sensory deficit Results Laboratory Results: 08/31/18 03:30 08/31/18 03:30 08/31/18 08/31/18 08/31/18 03:30 03:30 04:50 WBC 12.5 H RBC 4.67 Hgb 11.7 L Hct 37.1 MCV 79 L MCH 24.9 L MCHC 31.4 L RDW 17.6 H Plt Count 332 Seg Neutrophils % Not Reportable Lymphocytes % Not Reportable Monocytes % Not Reportable Eosinophils % Not Reportable Basophils % Not Reportable Absolute Neutrophils Not Reportable Absolute Lymphocytes Not Reportable Absolute Monocytes Not Reportable Absolute Eosinophils Not Reportable Absolute Basophils Not Reportable Carbonic Acid 1.01 L HCO3/H2CO3 Ratio 27:1 ABG pH 7.54 H ABG pCO2 33.6 L ABG pO2 69.1 L ABG HCO3 27.8 H ABG O2 Saturation 95.7 ABG Base Excess 5.3 FiO2 40% Sodium 138.4 Potassium 4.6 Chloride 107 Carbon Dioxide 27 Anion Gap 5 BUN 40 H Creatinine 1.06 Est GFR ( Amer) > 60 Est GFR (Non-Af Amer) 51 L Glucose 111 H Calcium 8.7 Magnesium 2.1 Total Bilirubin 0.5 AST 19 ALT 24 Alkaline Phosphatase 64 Total Protein 5.7 L Albumin 3.0 L 08/26/18 09:53 Blood Blood Culture - Final NO GROWTH IN 5 DAYS 08/26/18 09:40 Blood Blood Culture - Final NO GROWTH IN 5 DAYS 08/23/18 08/23/18 08/28/18 03:38 03:38 06:15 Creatine Kinase 181 H CK-MB (CK-2) 3.60 Troponin I < 0.012 NT-Pro-B Natriuret Pep 1560 H 08/29/18 03:18 Creatine Kinase CK-MB (CK-2) Troponin I NT-Pro-B Natriuret Pep 1400 H Impressions: Chest X-Ray 08/31/18 06:00 IMPRESSION: No significant change. Assessment and Plan - Diagnosis (1) Acute respiratory failure with hypoxia and hypercapnia Is this a current diagnosis for this admission?: Yes Plan: 08/30: Secondary to COPD exacerbation and pneumonia. Currently intubated. Will attempt to initiate weaning trial today. 08/31: No acute event overnight. She did well on weaning trial this morning and just got extubated. She is doing well so far on BIPAP. (2) COPD exacerbation Is this a current diagnosis for this admission?: Yes Plan: Continue solumedrol and breathing treatments. (3) Pneumonia Is this a current diagnosis for this admission?: Yes Plan: Continue azithromycin and Rocephin. (4) Diabetes mellitus Is this a current diagnosis for this admission?: Yes Plan: Hemoglobin A1c 10%. Sugars at goal. Continue Lantus and sliding scale. - Time Time Spent with patient: 25-34 minutes
[2018-08-31] MEDS: PREGABALIN 100 MG CAPSULE NG SCH (17:26)
[2018-08-31] MEDS: ATORVASTATIN CALCIUM 10 MG TABLET NG SCH (22:08)
[2018-09-01] MEDS: DIAZEPAM 5 MG TABLET NG SCH ×4 (01:44→18:05)
[2018-09-01] MEDS: INSULIN LISPRO 100 UNIT/ML 3 ML VIAL SUBCUT SCH ×5 (01:44→23:59)
[2018-09-01] MEDS: IPRATROPIUM/ALBUTEROL 0.5-2.5 MG/3 ML AMPUL NEB SCH ×4 (02:18→20:53)
[2018-09-01 03:50] LABS: ARTERIAL BLOOD BASE EXCESS 6.4 mmol/L; ARTERIAL BLOOD H2CO3 1.39 mmol/L (1.05-1.35); ARTERIAL BLOOD HCO3 31.3 mmol/L (20-24); ARTERIAL BLOOD PCO2 46.1 mmHg (35-45); ARTERIAL BLOOD PH 7.45 (7.35-7.45); ARTERIAL BLOOD PO2 78.8 mmHg (80-100); ARTERIAL BLOOD TOTAL CO2 32.7 mmol/L (21-25)
[2018-09-01 03:54] LABS: ARTERIAL BLOOD FIO2 40%
[2018-09-01 04:01] LABS: ABSOLUTE LYMPHOCYTES (AUTO) 0.9 10^3/uL (0.5-4.7); ABSOLUTE MONOCYTES (AUTO) 0.5 10^3/uL (0.1-1.4); ABSOLUTE NEUT (AUTO) 10.5 10^3/uL (1.7-8.2); BASOPHILS % (AUTO) 0.2 % (0-2); HEMATOCRIT 36.8 % (36.0-47.0); HEMOGLOBIN 11.5 g/dL (12.0-15.5); LYMPHOCYTES % (AUTO) 7.9 % (13-45); MEAN CORPUSCULAR HEMOGLOBIN 25.3 pg (27.0-33.4); MEAN CORPUSCULAR HGB CONC 31.2 g/dL (32.0-36.0); MEAN CORPUSCULAR VOLUME 81 fl (80-97); MONOCYTES % (AUTO) 4.5 % (3-13); PLATELET COUNT 320 10^3/uL (150-450); RED BLOOD COUNT 4.55 10^6/uL (3.72-5.28); RED CELL DISTRIBUTION WIDTH 17.1 % (11.5-14.0); SEGMENTED NEUTROPHILS % (AUTO) 87.4 % (42-78); TOTAL CELLS COUNTED % (AUTO) 100 %; WHITE BLOOD COUNT 12.1 10^3/uL (4.0-10.5)
[2018-09-01 04:33] LABS: ALANINE AMINOTRANSFERASE 29 U/L (9-52); ALBUMIN 2.9 g/dL (3.5-5.0); ALKALINE PHOSPHATASE 57 U/L (38-126); ASPARTATE AMINO TRANSFERASE 19 U/L (14-36); BILIRUBIN,DIRECT 0.3 mg/dL (0.0-0.4); BILIRUBIN,TOTAL 0.5 mg/dL (0.2-1.3); BLOOD UREA NITROGEN 43 mg/dL (7-20); CALCIUM 8.5 mg/dL (8.4-10.2); CARBON DIOXIDE 30 mmol/L (22-30); CHLORIDE 106 mmol/L (98-107); GLUCOSE 94 mg/dL (75-110); POTASSIUM 4.8 mmol/L (3.6-5.0); SODIUM 139.3 mmol/L (137-145); TOTAL PROTEIN 5.4 g/dL (6.3-8.2)
[2018-09-01 04:39] LABS: ANION GAP 3 (5-19)
[2018-09-01] MEDS: HEPARIN SOD (PORCINE) 5,000 UNIT/ML 1 ML SYRINGE SUBCUT SCH ×3 (05:36→21:32)
[2018-09-01] MEDS: DILTIAZEM HCL 60 MG TABLET NG SCH ×3 (05:37→21:30)
--- NOTE | 2018-09-01 06:45 | RADIOLOGY REPORT (SQ) ---
EXAM DESCRIPTION: XR CHEST 1 VIEW COMPLETED DATE/TME: 09/01/2018 06:00 CLINICAL HISTORY: 72 years Female, pna/resp failure COMPARISON: One day prior. NUMBER OF VIEWS/TECHNIQUE: 1/AP FINDINGS: Moderate opacity-effusion of the left lower hemithorax. Small hazy opacity-effusion of the right lower hemithorax.Atherosclerotic vascular disease. No pneumothorax. Deformity of the proximal right humerus. IMPRESSION: No significant change.
[2018-09-01] MEDS: ACETYLCYSTEINE 20% SOLN 800 MG/4 ML VIAL.NEB NEB SCH ×2 (07:50→20:54)
[2018-09-01] MEDS: CEFTRIAXONE SODIUM 1,000 MG in DEXTROSE 5%-WATER 50 ML IV SCH (10:10)
[2018-09-01] MEDS: FUROSEMIDE INJ/PF 20 MG/2 ML SDV IV SCH (10:11)
[2018-09-01] MEDS: METHYLPREDNISOLONE INJ 40 MG/1 ML SDV IV SCH (10:12)
[2018-09-01] MEDS: PANTOPRAZOLE SODIUM 40 MG VIAL IV SCH (10:12)
[2018-09-01] MEDS: NICOTINE 7 MG/24 HR PATCH.TD24 TD SCH (10:13)
[2018-09-01] MEDS: INSULIN GLARGINE,HUM.REC.ANLOG 1,000 UNIT/10 ML VIAL SUBCUT SCH ×2 (10:13→21:32)
[2018-09-01] MEDS: FLUTICASONE NASAL SPRAY 50 MCG/SPRY 120 SPRAY/16 GM NASL SCH ×2 (10:14→21:32)
[2018-09-01] MEDS: AZITHROMYCIN 250 MG TABLET NG SCH (11:37)
[2018-09-01] MEDS: VENLAFAXINE HCL 75 MG TABLET NG SCH ×2 (11:37→21:30)
--- NOTE | 2018-09-01 15:00 | PDOC PROGRESS REPORT ---
Subjective Progress Note for:: 09/01/18 Subjective:: This is a 72 year old female with a past medical history of insulin dependent diabetes, hypertension, severe lymphedema with stasis, chronic bronchitis, COPD, alcohol and tobacco dependence who initially presented with nonproductive cough and increasing shortness of breath. She was admitted for COPD exacerbation and pneumonia. She developed hypoxia and hypercarbia and was placed on BIPAP. She was subsequently intubated on 08/26 due to increasing SOB and acute combined respiratory failure. 08/30: Minimal secretions from the ET. Currently on minimal vent settings. Will start weaning trial today. 08/31: She did well on weaning trial this morning and just got extubated. She is doing well so far on BIPAP. 09/01: No acute event overnight. She is comfortable and is saturating well on nasal cannula. She is AO x 4. She will be evaluated by speech and PT as well. Reason For Visit: COPD EXACERBATION PNEUMONIA,DM,LEFT DM LUNG ULCER Physical Exam Vital Signs: Temp Pulse Resp BP Pulse Ox 97.9 F 87 14 141/91 H 92 09/01/18 10:48 09/01/18 14:27 09/01/18 14:27 09/01/18 10:48 09/01/18 14:27 Intake & Output 08/31/18 09/01/18 09/02/18 06:59 06:59 06:59 Intake Total 80 50 50 Output Total 4545 90463 480 Balance -4465 -86845 -430 Weight 160 lb 7.944 oz 157 lb 10.088 oz General appearance: PRESENT: no acute distress, well-developed, well-nourished Head exam: PRESENT: atraumatic, normocephalic Eye exam: PRESENT: conjunctiva pink, EOMI, PERRLA. ABSENT: scleral icterus Ear exam: PRESENT: normal external ear exam Mouth exam: PRESENT: moist, tongue midline Neck exam: ABSENT: carotid bruit, JVD, lymphadenopathy, thyromegaly Respiratory exam: PRESENT: rhonchi. ABSENT: rales, wheezes Cardiovascular exam: PRESENT: RRR. ABSENT: diastolic murmur, rubs, systolic murmur Pulses: PRESENT: normal dorsalis pedis pul GI/Abdominal exam: PRESENT: normal bowel sounds, soft. ABSENT: distended, guarding, mass, organolmegaly, rebound, tenderness Rectal exam: PRESENT: deferred Neurological exam: PRESENT: alert, awake, oriented to person, oriented to place, oriented to time, oriented to situation, CN II-XII grossly intact. ABSENT: motor sensory deficit Results Laboratory Results: 09/01/18 03:24 09/01/18 03:24 09/01/18 09/01/18 09/01/18 03:24 03:24 03:45 WBC 12.1 H RBC 4.55 Hgb 11.5 L Hct 36.8 MCV 81 MCH 25.3 L MCHC 31.2 L RDW 17.1 H Plt Count 320 Seg Neutrophils % 87.4 H Lymphocytes % 7.9 L Monocytes % 4.5 Eosinophils % 0.0 Basophils % 0.2 Absolute Neutrophils 10.5 H Absolute Lymphocytes 0.9 Absolute Monocytes 0.5 Absolute Eosinophils 0.0 Absolute Basophils 0.0 Carbonic Acid 1.39 H HCO3/H2CO3 Ratio 22:1 ABG pH 7.45 ABG pCO2 46.1 H ABG pO2 78.8 L ABG HCO3 31.3 H ABG O2 Saturation 96.0 ABG Base Excess 6.4 FiO2 40% Sodium 139.3 Potassium 4.8 Chloride 106 Carbon Dioxide 30 Anion Gap 3 L BUN 43 H Creatinine 0.99 Est GFR ( Amer) > 60 Est GFR (Non-Af Amer) 55 L Glucose 94 Calcium 8.5 Magnesium 2.1 Total Bilirubin 0.5 AST 19 ALT 29 Alkaline Phosphatase 57 Total Protein 5.4 L Albumin 2.9 L 08/23/18 08/23/18 08/28/18 03:38 03:38 06:15 Creatine Kinase 181 H CK-MB (CK-2) 3.60 Troponin I < 0.012 NT-Pro-B Natriuret Pep 1560 H 08/29/18 03:18 Creatine Kinase CK-MB (CK-2) Troponin I NT-Pro-B Natriuret Pep 1400 H Impressions: Chest X-Ray 09/01/18 06:00 IMPRESSION: No significant change. Assessment and Plan - Diagnosis (1) Acute respiratory failure with hypoxia and hypercapnia Is this a current diagnosis for this admission?: Yes Plan: 08/30: Secondary to COPD exacerbation and pneumonia. Currently intubated. Will attempt to initiate weaning trial today. 08/31: No acute event overnight. She did well on weaning trial this morning and just got extubated. She is doing well so far on BIPAP. 09/01: She is comfortable and is saturating well on nasal cannula. She is AO x 4. (2) COPD exacerbation Is this a current diagnosis for this admission?: Yes Plan: Continue solumedrol and breathing treatments. 09/01: Will switch solumedrol to prednisone today. (3) Pneumonia Is this a current diagnosis for this admission?: Yes Plan: Continue azithromycin and Rocephin. (4) Diabetes mellitus Is this a current diagnosis for this admission?: Yes Plan: Hemoglobin A1c 10%. Sugars at goal. Continue Lantus and sliding scale. - Time Time Spent with patient: 15-24 minutes
[2018-09-01] MEDS: PREGABALIN 100 MG CAPSULE NG SCH (18:05)
[2018-09-01] MEDS: FUROSEMIDE 20 MG TABLET PO SCH (18:08)
[2018-09-01] MEDS ORDERED: INSULIN GLARGINE,HUM.REC.ANLOG 1,000 UNIT/10 ML VIAL (PYX) SUBCUT ONE (21:26)
[2018-09-01] MEDS: ATORVASTATIN CALCIUM 10 MG TABLET NG SCH (21:30)
[2018-09-02] MEDS: DIAZEPAM 5 MG TABLET NG SCH (00:07)
[2018-09-02] MEDS: IPRATROPIUM/ALBUTEROL 0.5-2.5 MG/3 ML AMPUL NEB SCH ×4 (01:34→19:45)
[2018-09-02] MEDS: DILTIAZEM HCL 60 MG TABLET NG SCH ×3 (05:32→22:36)
[2018-09-02] MEDS: HEPARIN SOD (PORCINE) 5,000 UNIT/ML 1 ML SYRINGE SUBCUT SCH ×3 (05:33→22:41)
[2018-09-02 06:39] LABS: ABSOLUTE BASOPHILS # (AUTO) 0.1 10^3/uL (0.0-0.2); ABSOLUTE LYMPHOCYTES (AUTO) 1.1 10^3/uL (0.5-4.7); ABSOLUTE MONOCYTES (AUTO) 0.8 10^3/uL (0.1-1.4); ABSOLUTE NEUT (AUTO) 10.9 10^3/uL (1.7-8.2); BASOPHILS % (AUTO) 0.4 % (0-2); HEMATOCRIT 37.2 % (36.0-47.0); HEMOGLOBIN 11.7 g/dL (12.0-15.5); LYMPHOCYTES % (AUTO) 8.5 % (13-45); MEAN CORPUSCULAR HEMOGLOBIN 25.4 pg (27.0-33.4); MEAN CORPUSCULAR HGB CONC 31.5 g/dL (32.0-36.0); MEAN CORPUSCULAR VOLUME 81 fl (80-97); MONOCYTES % (AUTO) 5.9 % (3-13); PLATELET COUNT 305 10^3/uL (150-450); RED BLOOD COUNT 4.61 10^6/uL (3.72-5.28); RED CELL DISTRIBUTION WIDTH 16.9 % (11.5-14.0); SEGMENTED NEUTROPHILS % (AUTO) 85.2 % (42-78); TOTAL CELLS COUNTED % (AUTO) 100 %; WHITE BLOOD COUNT 12.8 10^3/uL (4.0-10.5)
[2018-09-02 06:52] LABS: ANION GAP 5 (5-19); BLOOD UREA NITROGEN 46 mg/dL (7-20); CALCIUM 8.4 mg/dL (8.4-10.2); CARBON DIOXIDE 32 mmol/L (22-30); CHLORIDE 102 mmol/L (98-107); GLUCOSE 144 mg/dL (75-110); POTASSIUM 4.2 mmol/L (3.6-5.0); SODIUM 139.3 mmol/L (137-145)
[2018-09-02 07:09] LABS: ARTERIAL BLOOD BASE EXCESS 4.4 mmol/L; ARTERIAL BLOOD H2CO3 1.38 mmol/L (1.05-1.35); ARTERIAL BLOOD HCO3 29.4 mmol/L (20-24); ARTERIAL BLOOD O2 SATURATION 93.3 % (94-98); ARTERIAL BLOOD PCO2 45.9 mmHg (35-45); ARTERIAL BLOOD PH 7.43 (7.35-7.45); ARTERIAL BLOOD PO2 65.9 mmHg (80-100); ARTERIAL BLOOD TOTAL CO2 30.9 mmol/L (21-25)
[2018-09-02 07:10] LABS: ARTERIAL BLOOD FIO2 4L
[2018-09-02] MEDS: INSULIN LISPRO 100 UNIT/ML 3 ML VIAL SUBCUT SCH ×3 (07:54→18:14)
[2018-09-02] MEDS: ACETYLCYSTEINE 20% SOLN 800 MG/4 ML VIAL.NEB NEB SCH ×2 (07:56→19:45)
[2018-09-02] MEDS: CEFTRIAXONE SODIUM 1,000 MG in DEXTROSE 5%-WATER 50 ML IV SCH (08:30)
[2018-09-02] MEDS: METHYLPREDNISOLONE INJ 40 MG/1 ML SDV IV SCH (09:33)
[2018-09-02] MEDS: INSULIN GLARGINE,HUM.REC.ANLOG 1,000 UNIT/10 ML VIAL SUBCUT SCH ×2 (09:33→22:39)
[2018-09-02] MEDS: NICOTINE 7 MG/24 HR PATCH.TD24 TD SCH (09:33)
[2018-09-02] MEDS: FLUTICASONE NASAL SPRAY 50 MCG/SPRY 120 SPRAY/16 GM NASL SCH ×2 (09:34→22:38)
[2018-09-02] MEDS: FOLIC ACID 1 MG TABLET PO SCH (09:34)
[2018-09-02] MEDS: FUROSEMIDE 20 MG TABLET PO SCH ×2 (09:34→18:15)
[2018-09-02] MEDS: FERROUS SULFATE 325 MG TABLET PO SCH (09:34)
[2018-09-02] MEDS: VENLAFAXINE HCL 75 MG TABLET NG SCH ×2 (09:34→22:36)
[2018-09-02] MEDS: HYDRALAZINE HCL 50 MG TABLET PO SCH ×3 (09:34→18:15)
--- NOTE | 2018-09-02 10:00 | RADIOLOGY REPORT (SQ) ---
EXAM DESCRIPTION: CHEST SINGLE VIEW COMPLETED DATE/TIME: 09/02/2018 9:20 am REASON FOR STUDY: pna COMPARISON: 09/01/2018. FINDINGS: Single-view chest AP portable upright. Similar appearance to prior. Persistent diminished aeration left base with at least some component of mild left pleural fluid. No new or developing infiltrates or progressive edema. No pneumothorax. TECHNICAL DOCUMENTATION: JOB ID: [id number] Reading location - IP/workstation name: [email or web address]
--- NOTE | 2018-09-02 12:59 | PDOC PROGRESS REPORT ---
Subjective Progress Note for:: 09/02/18 Subjective:: This is a 72 year old female with a past medical history of insulin dependent diabetes, hypertension, severe lymphedema with stasis, chronic bronchitis, COPD, alcohol and tobacco dependence who initially presented with nonproductive cough and increasing shortness of breath. She was admitted for COPD exacerbation and pneumonia. She developed hypoxia and hypercarbia and was placed on BIPAP. She was subsequently intubated on 08/26 due to increasing SOB and acute combined respiratory failure. 08/30: Minimal secretions from the ET. Currently on minimal vent settings. Will start weaning trial today. 08/31: She did well on weaning trial this morning and just got extubated. She is doing well so far on BIPAP. 09/01: She is comfortable and is saturating well on nasal cannula. She is AO x 4. She will be evaluated by speech and PT as well. 09/02: No acute event overnight. She continues to improve and says she feels stronger and feels better today. Denies SOB or chest pain. She is awaiting eval by PT. Reason For Visit: COPD EXACERBATION PNEUMONIA,DM,LEFT DM LUNG ULCER Physical Exam Vital Signs: Temp Pulse Resp BP Pulse Ox 97.8 F 74 19 162/89 H 95 09/02/18 08:16 09/02/18 08:16 09/02/18 08:16 09/02/18 08:16 09/02/18 08:16 Intake & Output 09/01/18 09/02/18 09/03/18 06:59 06:59 06:59 Intake Total 50 530 50 Output Total 61367 3143 Balance -54788 -9065 50 Weight 157 lb 10.088 oz 160 lb 0.889 oz General appearance: PRESENT: no acute distress, well-developed, well-nourished Head exam: PRESENT: atraumatic, normocephalic Eye exam: PRESENT: conjunctiva pink, EOMI, PERRLA. ABSENT: scleral icterus Ear exam: PRESENT: normal external ear exam Mouth exam: PRESENT: moist, tongue midline Neck exam: ABSENT: carotid bruit, JVD, lymphadenopathy, thyromegaly Respiratory exam: PRESENT: clear to auscultation lauren. ABSENT: rales, rhonchi, wheezes Cardiovascular exam: PRESENT: RRR. ABSENT: diastolic murmur, rubs, systolic murmur Pulses: PRESENT: normal dorsalis pedis pul GI/Abdominal exam: PRESENT: normal bowel sounds, soft. ABSENT: distended, guarding, mass, organolmegaly, rebound, tenderness Rectal exam: PRESENT: deferred Neurological exam: PRESENT: alert, awake, oriented to person, oriented to place, oriented to time, oriented to situation, CN II-XII grossly intact. ABSENT: motor sensory deficit Results Laboratory Results: 09/02/18 05:55 09/02/18 05:55 09/02/18 09/02/18 09/02/18 05:44 05:55 05:55 WBC 12.8 H RBC 4.61 Hgb 11.7 L Hct 37.2 MCV 81 MCH 25.4 L MCHC 31.5 L RDW 16.9 H Plt Count 305 Seg Neutrophils % 85.2 H Lymphocytes % 8.5 L Monocytes % 5.9 Eosinophils % 0.0 Basophils % 0.4 Absolute Neutrophils 10.9 H Absolute Lymphocytes 1.1 Absolute Monocytes 0.8 Absolute Eosinophils 0.0 Absolute Basophils 0.1 Carbonic Acid Cancelled HCO3/H2CO3 Ratio Cancelled ABG pH Cancelled ABG pCO2 Cancelled ABG pO2 Cancelled ABG HCO3 Cancelled ABG O2 Saturation Cancelled ABG Base Excess Cancelled FiO2 Cancelled Sodium 139.3 Potassium 4.2 Chloride 102 Carbon Dioxide 32 H Anion Gap 5 BUN 46 H Creatinine 0.97 Est GFR ( Amer) > 60 Est GFR (Non-Af Amer) 56 L Glucose 144 H Calcium 8.4 Magnesium 1.9 09/02/18 06:48 WBC RBC Hgb Hct MCV MCH MCHC RDW Plt Count Seg Neutrophils % Lymphocytes % Monocytes % Eosinophils % Basophils % Absolute Neutrophils Absolute Lymphocytes Absolute Monocytes Absolute Eosinophils Absolute Basophils Carbonic Acid 1.38 H HCO3/H2CO3 Ratio 21:1 ABG pH 7.43 ABG pCO2 45.9 H ABG pO2 65.9 L ABG HCO3 29.4 H ABG O2 Saturation 93.3 L ABG Base Excess 4.4 FiO2 4L Sodium Potassium Chloride Carbon Dioxide Anion Gap BUN Creatinine Est GFR ( Amer) Est GFR (Non-Af Amer) Glucose Calcium Magnesium 08/23/18 08/23/18 08/28/18 03:38 03:38 06:15 Creatine Kinase 181 H CK-MB (CK-2) 3.60 Troponin I < 0.012 NT-Pro-B Natriuret Pep 1560 H 08/29/18 03:18 Creatine Kinase CK-MB (CK-2) Troponin I NT-Pro-B Natriuret Pep 1400 H Assessment and Plan - Diagnosis (1) Acute respiratory failure with hypoxia and hypercapnia Is this a current diagnosis for this admission?: Yes Plan: 08/30: Secondary to COPD exacerbation and pneumonia. Currently intubated. Will attempt to initiate weaning trial today. 08/31: No acute event overnight. She did well on weaning trial this morning and just got extubated. She is doing well so far on BIPAP. 09/01: She is comfortable and is saturating well on nasal cannula. She is AO x 4. 09/02: Stable on nasal cannula. Await PT eval for final disposition. (2) COPD exacerbation Is this a current diagnosis for this admission?: Yes Plan: Continue solumedrol and breathing treatments. 09/01: Will switch solumedrol to prednisone today. 09/02: Continue prednisone. (3) Pneumonia Is this a current diagnosis for this admission?: Yes Plan: Discontinue antibiotics. She has completed 10 days of IV antibiotics. (4) Diabetes mellitus Is this a current diagnosis for this admission?: Yes Plan: Hemoglobin A1c 10%. Sugars at goal. Continue Lantus and sliding scale. - Time Time Spent with patient: 15-24 minutes
[2018-09-02] MEDS: PREDNISONE 20 MG TABLET PO SCH (18:15)
[2018-09-02] MEDS: PREGABALIN 100 MG CAPSULE NG SCH (18:15)
[2018-09-02] MEDS: ATORVASTATIN CALCIUM 10 MG TABLET NG SCH (22:43)
[2018-09-03] MEDS: INSULIN LISPRO 100 UNIT/ML 3 ML VIAL SUBCUT SCH ×3 (00:56→17:18)
[2018-09-03] MEDS: IPRATROPIUM/ALBUTEROL 0.5-2.5 MG/3 ML AMPUL NEB SCH ×4 (02:12→20:57)
[2018-09-03] MEDS: HEPARIN SOD (PORCINE) 5,000 UNIT/ML 1 ML SYRINGE SUBCUT SCH ×3 (05:37→21:28)
[2018-09-03] MEDS: DILTIAZEM HCL 60 MG TABLET NG SCH ×3 (05:37→21:27)
[2018-09-03] MEDS ORDERED: INSULIN LISPRO 100 UNIT/ML 3 ML VIAL SUBCUT ONE (06:25)
[2018-09-03] MEDS: ACETYLCYSTEINE 20% SOLN 800 MG/4 ML VIAL.NEB NEB SCH ×2 (07:41→21:09)
[2018-09-03] MEDS: HYDRALAZINE HCL 50 MG TABLET PO SCH ×3 (09:11→17:39)
[2018-09-03] MEDS: PREDNISONE 20 MG TABLET PO SCH ×2 (09:11→17:39)
[2018-09-03] MEDS: VENLAFAXINE HCL 75 MG TABLET NG SCH ×2 (09:12→21:28)
[2018-09-03] MEDS: FOLIC ACID 1 MG TABLET PO SCH (09:12)
[2018-09-03] MEDS: INSULIN GLARGINE,HUM.REC.ANLOG 1,000 UNIT/10 ML VIAL SUBCUT SCH ×2 (09:12→21:37)
[2018-09-03] MEDS: FLUTICASONE NASAL SPRAY 50 MCG/SPRY 120 SPRAY/16 GM NASL SCH ×2 (09:12→21:28)
[2018-09-03] MEDS: FERROUS SULFATE 325 MG TABLET PO SCH (09:12)
[2018-09-03] MEDS: FUROSEMIDE 20 MG TABLET PO SCH ×2 (09:12→17:39)
[2018-09-03] MEDS: NICOTINE 7 MG/24 HR PATCH.TD24 TD SCH (09:13)
--- NOTE | 2018-09-03 14:12 | PDOC PROGRESS REPORT ---
Subjective Progress Note for:: 09/03/18 Subjective:: This is a 72 year old female with a past medical history of insulin dependent diabetes, hypertension, severe lymphedema with stasis, chronic bronchitis, COPD, alcohol and tobacco dependence who initially presented with nonproductive cough and increasing shortness of breath. She was admitted for COPD exacerbation and pneumonia. She developed hypoxia and hypercarbia and was placed on BIPAP. She was subsequently intubated on 08/26 due to increasing SOB and acute combined respiratory failure. 08/30: Minimal secretions from the ET. Currently on minimal vent settings. Will start weaning trial today. 08/31: She did well on weaning trial this morning and just got extubated. She is doing well so far on BIPAP. 09/01: She is comfortable and is saturating well on nasal cannula. She is AO x 4. She will be evaluated by speech and PT as well. 09/02:She continues to improve and says she feels stronger and feels better today. Denies SOB or chest pain. She is awaiting eval by PT. 09/03: No acute event overnight. She continues to feel better but appears to have physical deconditioning. She was assessed by PT and she required significant assistance. She was initially hesitant about going to SNF/rehab but she lives alone and does not have social/family support at home. She is now amenable to going to SNF/short term rehab. Will initiate placement process. Reason For Visit: COPD EXACERBATION PNEUMONIA,DM,LEFT DM LUNG ULCER Physical Exam Vital Signs: Temp Pulse Resp BP Pulse Ox 98.4 F 80 18 150/73 H 97 09/03/18 12:00 09/03/18 08:00 09/03/18 12:00 09/03/18 12:00 09/03/18 12:00 Intake & Output 09/02/18 09/03/18 09/04/18 06:59 06:59 06:59 Intake Total 530 1247 Output Total 2125 1200 Balance -1595 47 Weight 160 lb 0.889 oz 162 lb 4.163 oz General appearance: PRESENT: no acute distress, well-developed, well-nourished Head exam: PRESENT: atraumatic, normocephalic Eye exam: PRESENT: conjunctiva pink, EOMI, PERRLA. ABSENT: scleral icterus Ear exam: PRESENT: normal external ear exam Mouth exam: PRESENT: moist, tongue midline Neck exam: PRESENT: carotid bruit Respiratory exam: PRESENT: rhonchi. ABSENT: rales, wheezes Cardiovascular exam: PRESENT: RRR. ABSENT: diastolic murmur, rubs, systolic murmur Pulses: PRESENT: normal dorsalis pedis pul GI/Abdominal exam: PRESENT: normal bowel sounds, soft. ABSENT: distended, guarding, mass, organolmegaly, rebound, tenderness Rectal exam: PRESENT: deferred Neurological exam: PRESENT: alert, awake, oriented to person, oriented to place, oriented to time, oriented to situation, CN II-XII grossly intact. ABSENT: motor sensory deficit Results Laboratory Results: 09/02/18 05:55 09/02/18 05:55 08/23/18 08/23/18 08/28/18 03:38 03:38 06:15 Creatine Kinase 181 H CK-MB (CK-2) 3.60 Troponin I < 0.012 NT-Pro-B Natriuret Pep 1560 H 08/29/18 03:18 Creatine Kinase CK-MB (CK-2) Troponin I NT-Pro-B Natriuret Pep 1400 H Assessment and Plan - Diagnosis (1) Acute respiratory failure with hypoxia and hypercapnia Is this a current diagnosis for this admission?: Yes Plan: Resolved. Stable on nasal cannula. (2) COPD exacerbation Is this a current diagnosis for this admission?: Yes Plan: Continue prednisone 20 mg bid. (3) Pneumonia Is this a current diagnosis for this admission?: Yes Plan: Discontinued antibiotics. She has completed 10 days of IV antibiotics. (4) Diabetes mellitus Is this a current diagnosis for this admission?: Yes Plan: Hemoglobin A1c 10%. Sugars at goal. Continue Lantus and sliding scale. (5) Physical deconditioning Is this a current diagnosis for this admission?: Yes Plan: 09/03: She continues to feel better but appears to have physical deconditioning. She was assessed by PT and she required significant assistance. She was initially hesitant about going to SNF/rehab but she lives alone and does not have social/family support at home. She is now amenable to going to SNF/short term rehab. Will initiate placement process. - Time Time Spent with patient: 15-24 minutes
[2018-09-03] MEDS: PREGABALIN 100 MG CAPSULE NG SCH (17:39)
[2018-09-03] MEDS: ATORVASTATIN CALCIUM 10 MG TABLET NG SCH (21:28)
[2018-09-04] MEDS: INSULIN LISPRO 100 UNIT/ML 3 ML VIAL SUBCUT SCH ×5 (00:17→23:42)
[2018-09-04] MEDS: IPRATROPIUM/ALBUTEROL 0.5-2.5 MG/3 ML AMPUL NEB SCH ×4 (01:59→20:52)
[2018-09-04 05:00] LABS: ABSOLUTE MONOCYTES (AUTO) 0.5 10^3/uL (0.1-1.4); ABSOLUTE NEUT (AUTO) 14.8 10^3/uL (1.7-8.2); BASOPHILS % (AUTO) 0.1 % (0-2); HEMATOCRIT 35.9 % (36.0-47.0); HEMOGLOBIN 11.2 g/dL (12.0-15.5); LYMPHOCYTES % (AUTO) 6.2 % (13-45); MEAN CORPUSCULAR HEMOGLOBIN 25.3 pg (27.0-33.4); MEAN CORPUSCULAR HGB CONC 31.3 g/dL (32.0-36.0); MEAN CORPUSCULAR VOLUME 81 fl (80-97); MONOCYTES % (AUTO) 3.3 % (3-13); PLATELET COUNT 271 10^3/uL (150-450); RED BLOOD COUNT 4.44 10^6/uL (3.72-5.28); RED CELL DISTRIBUTION WIDTH 17.4 % (11.5-14.0); SEGMENTED NEUTROPHILS % (AUTO) 90.4 % (42-78); TOTAL CELLS COUNTED % (AUTO) 100 %; WHITE BLOOD COUNT 16.4 10^3/uL (4.0-10.5)
[2018-09-04 05:11] LABS: ANION GAP 6 (5-19); BLOOD UREA NITROGEN 49 mg/dL (7-20); CALCIUM 8.6 mg/dL (8.4-10.2); CARBON DIOXIDE 33 mmol/L (22-30); CHLORIDE 99 mmol/L (98-107); GLUCOSE 243 mg/dL (75-110); POTASSIUM 3.9 mmol/L (3.6-5.0); SODIUM 138.4 mmol/L (137-145)
[2018-09-04] MEDS: HEPARIN SOD (PORCINE) 5,000 UNIT/ML 1 ML SYRINGE SUBCUT SCH ×3 (06:02→21:39)
[2018-09-04] MEDS: DILTIAZEM HCL 60 MG TABLET NG SCH ×3 (06:03→21:39)
[2018-09-04] MEDS: ACETYLCYSTEINE 20% SOLN 800 MG/4 ML VIAL.NEB NEB SCH ×2 (07:52→20:52)
--- NOTE | 2018-09-04 08:33 | RADIOLOGY REPORT (SQ) ---
EXAM DESCRIPTION: CHEST SINGLE VIEW COMPLETED DATE/TIME: 09/04/2018 7:41 am REASON FOR STUDY: assess for infilt, pleur eff COMPARISON: 09/02/2018. NUMBER OF VIEWS: One view. TECHNIQUE: Single frontal radiographic view of the chest acquired. LIMITATIONS: None. FINDINGS: LUNGS AND PLEURA: Unchanged volume loss with small effusion and airspace disease in the le ft base. Slight worsening opacity in the right base. No pneumothorax. MEDIASTINUM AND HILAR STRUCTURES: No masses. Contour normal. HEART AND VASCULAR STRUCTURES: Stable heart size. BONES: Osteopenic. Slight deformity left humeral neck. Consistent with old fracture. HARDWARE: None in the chest. OTHER: No other significant finding. IMPRESSION: 1. Mild worsening in right basilar aeration compared to prior. TECHNICAL DOCUMENTATION: JOB ID: [id number] [employer]- All Rights Reserved Reading location - IP/workstation name: [email or web address]
[2018-09-04] MEDS: HYDRALAZINE HCL 50 MG TABLET PO SCH ×3 (10:15→17:58)
[2018-09-04] MEDS: FOLIC ACID 1 MG TABLET PO SCH (10:15)
[2018-09-04] MEDS: FLUTICASONE NASAL SPRAY 50 MCG/SPRY 120 SPRAY/16 GM NASL SCH ×2 (10:15→21:40)
[2018-09-04] MEDS: FUROSEMIDE 20 MG TABLET PO SCH ×2 (10:15→17:58)
[2018-09-04] MEDS: FERROUS SULFATE 325 MG TABLET PO SCH (10:15)
[2018-09-04] MEDS: PREDNISONE 20 MG TABLET PO SCH ×2 (10:15→17:58)
[2018-09-04] MEDS: VENLAFAXINE HCL 75 MG TABLET NG SCH ×2 (10:15→21:40)
[2018-09-04] MEDS: NICOTINE 7 MG/24 HR PATCH.TD24 TD SCH (10:15)
[2018-09-04] MEDS: INSULIN GLARGINE,HUM.REC.ANLOG 1,000 UNIT/10 ML VIAL SUBCUT SCH ×2 (10:16→21:39)
--- NOTE | 2018-09-04 13:46 | PDOC PROGRESS REPORT ---
Subjective Progress Note for:: 09/04/18 Subjective:: This is a 72 year old female with a past medical history of insulin dependent diabetes, hypertension, severe lymphedema with stasis, chronic bronchitis, COPD, alcohol and tobacco dependence who initially presented with nonproductive cough and increasing shortness of breath. She was admitted for COPD exacerbation and pneumonia. She developed hypoxia and hypercarbia and was placed on BIPAP. She was subsequently intubated on 08/26 due to increasing SOB and acute combined respiratory failure. 08/30: Minimal secretions from the ET. Currently on minimal vent settings. Will start weaning trial today. 08/31: She did well on weaning trial this morning and just got extubated. She is doing well so far on BIPAP. 09/01: She is comfortable and is saturating well on nasal cannula. She is AO x 4. She will be evaluated by speech and PT as well. 09/02:She continues to improve and says she feels stronger and feels better today. Denies SOB or chest pain. She is awaiting eval by PT. 09/03: She continues to feel better but appears to have physical deconditioning. She was assessed by PT and she required significant assistance. She was initially hesitant about going to SNF/rehab but she lives alone and does not have social/family support at home. She is now amenable to going to SNF/short term rehab. Will initiate placement process. 09/04: No acute event overnight but she does complain of new productive cough. No SOB or chest pain. Patient express she needs to do her taxes and is asking if she could go home first and go back to go to rehab. Reason For Visit: COPD EXACERBATION PNEUMONIA,DM,LEFT DM LUNG ULCER Physical Exam Vital Signs: Temp Pulse Resp BP Pulse Ox 97.5 F 76 18 131/70 H 96 09/04/18 11:27 09/04/18 11:27 09/04/18 11:27 09/04/18 11:27 09/04/18 11:27 Intake & Output 09/03/18 09/04/18 09/05/18 06:59 06:59 06:59 Intake Total 1247 237 Output Total 1200 Balance 47 237 Weight 162 lb 4.163 oz 162 lb 11.218 oz General appearance: PRESENT: no acute distress, well-developed, well-nourished Head exam: PRESENT: atraumatic, normocephalic Eye exam: PRESENT: conjunctiva pink, EOMI, PERRLA. ABSENT: scleral icterus Ear exam: PRESENT: normal external ear exam Mouth exam: PRESENT: moist, tongue midline Neck exam: ABSENT: carotid bruit, JVD, lymphadenopathy, thyromegaly Respiratory exam: PRESENT: rhonchi. ABSENT: rales, wheezes Cardiovascular exam: PRESENT: RRR. ABSENT: diastolic murmur, rubs, systolic murmur Pulses: PRESENT: normal dorsalis pedis pul GI/Abdominal exam: PRESENT: normal bowel sounds, soft. ABSENT: distended, guarding, mass, organolmegaly, rebound, tenderness Rectal exam: PRESENT: deferred Neurological exam: PRESENT: alert, awake, oriented to person, oriented to place, oriented to time, oriented to situation, CN II-XII grossly intact. ABSENT: motor sensory deficit Results Laboratory Results: 09/04/18 04:14 09/04/18 04:14 09/04/18 09/04/18 04:14 04:14 WBC 16.4 H RBC 4.44 Hgb 11.2 L Hct 35.9 L MCV 81 MCH 25.3 L MCHC 31.3 L RDW 17.4 H Plt Count 271 Seg Neutrophils % 90.4 H Lymphocytes % 6.2 L Monocytes % 3.3 Eosinophils % 0.0 Basophils % 0.1 Absolute Neutrophils 14.8 H Absolute Lymphocytes 1.0 Absolute Monocytes 0.5 Absolute Eosinophils 0.0 Absolute Basophils 0.0 Sodium 138.4 Potassium 3.9 Chloride 99 Carbon Dioxide 33 H Anion Gap 6 BUN 49 H Creatinine 0.98 Est GFR ( Amer) > 60 Est GFR (Non-Af Amer) 56 L Glucose 243 H Calcium 8.6 08/23/18 08/23/18 08/28/18 03:38 03:38 06:15 Creatine Kinase 181 H CK-MB (CK-2) 3.60 Troponin I < 0.012 NT-Pro-B Natriuret Pep 1560 H 08/29/18 03:18 Creatine Kinase CK-MB (CK-2) Troponin I NT-Pro-B Natriuret Pep 1400 H Impressions: Chest X-Ray 09/04/18 07:00 IMPRESSION: 1. Mild worsening in right basilar aeration compared to prior. Assessment and Plan - Diagnosis (1) Acute respiratory failure with hypoxia and hypercapnia Is this a current diagnosis for this admission?: Yes Plan: Resolved. Stable on nasal cannula. (2) COPD exacerbation Is this a current diagnosis for this admission?: Yes Plan: Continue prednisone 20 mg bid for 3 more days. She will need to be discharged on a LABA/ICS inhaler like Advair as it seems she's only on albuterol and Spiriva at home. (3) Pneumonia Is this a current diagnosis for this admission?: Yes Plan: Discontinued antibiotics. She has completed 10 days of IV antibiotics. (4) Diabetes mellitus Is this a current diagnosis for this admission?: Yes Plan: Hemoglobin A1c 10%. Sugars at goal. Continue Lantus and sliding scale. (5) Physical deconditioning Is this a current diagnosis for this admission?: Yes Plan: 09/03: She continues to feel better but appears to have physical deconditioning. She was assessed by PT and she required significant assistance. She was initially hesitant about going to SNF/rehab but she lives alone and does not have social/family support at home. She is now amenable to going to SNF/short term rehab. Will initiate placement process. 09/04: Await placement to [place]. - Time Time Spent with patient: 25-34 minutes
--- NOTE | 2018-09-04 15:21 | RADIOLOGY REPORT (SQ) ---
EXAM DESCRIPTION: CT CHEST WITHOUT COMPLETED DATE/TIME: 09/04/2018 2:48 pm REASON FOR STUDY: completed antibiotics,worsneing aeration-RLL field COMPARISON: 2017. Recent radiographs. TECHNIQUE: CT scan performed of the chest without intravenous contrast. Images reviewed with lung, soft tissue and bone windows. Reconstructed coronal and sagittal MPR images reviewed. All images st ored on PACS. All CT scanners at this facility use dose modulation, iterative reconstruction, and/or weight based d osing when appropriate to reduce radiation dose to as low as reasonably achievable (ALARA). [facility]: Dose Right [facility]: CareDose [facility]: Dose Right [facility]: Teradose 4D [facility]: Smart YieldPlanet RADIATION DOSE: CT Rad equipment meets quality standard of care and radiation dose reduction techniq ues were employed. CTDIvol: 9.1 mGy. DLP: 317 mGy-cm. mGy. LIMITATIONS: No technical limitations. FINDINGS: LUNGS AND PLEURA: Left lower lobe partial collapse and consolidation with small adjacent l eft pleural effusion. Trace right pleural fluid with lesser volume loss. Upper lung garrison clear. HILAR AND MEDIASTINAL STRUCTURES: No identified masses or abnormal nodes. No obvious aneurysm. HEART AND VASCULAR STRUCTURES: Cardiomegaly with heavy coronary calcification. No aortic aneurysm or pericardial effusion. UPPER ABDOMEN: No significant findings. Limited exam. THYROID AND OTHER SOFT TISSUES: No masses. No adenopathy. BONES: No significant finding. HARDWARE: None in the chest. OTHER: No other significant findings. IMPRESSION: 1. Small bilateral effusions. Significant volume loss and consolidation in the left lower lobe with lesser volume loss in the right lower lobe. TECHNICAL DOCUMENTATION: JOB ID: [id number] Quality ID # [id number]: Final reports with documentation of one or more dose reduction techniques (e.g., Au tomated exposure control, adjustment of the mA and/or kV according to patient size, use of iterative reconstruction technique) 2010 [employer]- All Rights Reserved Reading location - IP/workstation name: [email or web address]
[2018-09-04] MEDS: PREGABALIN 100 MG CAPSULE NG SCH (17:58)
[2018-09-04] MEDS: ATORVASTATIN CALCIUM 10 MG TABLET NG SCH (21:39)
[2018-09-05] MEDS: IPRATROPIUM/ALBUTEROL 0.5-2.5 MG/3 ML AMPUL NEB SCH ×4 (02:13→19:41)
[2018-09-05] MEDS: HEPARIN SOD (PORCINE) 5,000 UNIT/ML 1 ML SYRINGE SUBCUT SCH ×3 (06:44→22:10)
[2018-09-05] MEDS: DILTIAZEM HCL 60 MG TABLET NG SCH (06:44)
[2018-09-05] MEDS: INSULIN LISPRO 100 UNIT/ML 3 ML VIAL SUBCUT SCH ×4 (08:10→23:48)
[2018-09-05] MEDS: ACETYLCYSTEINE 20% SOLN 800 MG/4 ML VIAL.NEB NEB SCH ×3 (08:14→19:41)
[2018-09-05] MEDS: FLUTICASONE NASAL SPRAY 50 MCG/SPRY 120 SPRAY/16 GM NASL SCH ×2 (09:16→22:10)
[2018-09-05] MEDS: VENLAFAXINE HCL 75 MG TABLET NG SCH (09:17)
[2018-09-05] MEDS: FOLIC ACID 1 MG TABLET PO SCH (09:17)
[2018-09-05] MEDS: FERROUS SULFATE 325 MG TABLET PO SCH (09:18)
[2018-09-05] MEDS: FUROSEMIDE 20 MG TABLET PO SCH ×2 (09:18→17:10)
[2018-09-05] MEDS: PREDNISONE 20 MG TABLET PO SCH ×2 (09:18→17:10)
[2018-09-05] MEDS: HYDRALAZINE HCL 50 MG TABLET PO SCH ×3 (09:18→17:11)
[2018-09-05] MEDS: INSULIN GLARGINE,HUM.REC.ANLOG 1,000 UNIT/10 ML VIAL SUBCUT SCH ×2 (09:19→22:22)
[2018-09-05] MEDS: NICOTINE 7 MG/24 HR PATCH.TD24 TD SCH (09:20)
[2018-09-05] MEDS ORDERED: ACETAMINOPHEN 325 MG TABLET PO PRN (11:03)
[2018-09-05] MEDS ORDERED: ONDANSETRON 4 MG TAB.RAPDIS PO PRN (11:30)
[2018-09-05] MEDS: LEVOFLOXACIN 750 MG TABLET PO SCH (13:39)
[2018-09-05] MEDS: DILTIAZEM HCL 60 MG TABLET PO SCH ×2 (13:39→22:11)
--- NOTE | 2018-09-05 14:02 | PDOC PROGRESS REPORT ---
Subjective Progress Note for:: 09/05/18 Subjective:: This is a 72 year old female with a past medical history of insulin dependent diabetes, hypertension, severe lymphedema with stasis, chronic bronchitis, COPD, alcohol and tobacco dependence who initially presented with nonproductive cough and increasing shortness of breath. She was admitted for COPD exacerbation and pneumonia. She developed hypoxia and hypercarbia and was placed on BIPAP. She was subsequently intubated on 08/26 due to increasing SOB and acute combined respiratory failure. 08/30: Minimal secretions from the ET. Currently on minimal vent settings. Will start weaning trial today. 08/31: She did well on weaning trial this morning and just got extubated. She is doing well so far on BIPAP. 09/01: She is comfortable and is saturating well on nasal cannula. She is AO x 4. She will be evaluated by speech and PT as well. 09/02:She continues to improve and says she feels stronger and feels better today. Denies SOB or chest pain. She is awaiting eval by PT. 09/03: She continues to feel better but appears to have physical deconditioning. She was assessed by PT and she required significant assistance. She was initially hesitant about going to SNF/rehab but she lives alone and does not have social/family support at home. She is now amenable to going to SNF/short term rehab. Will initiate placement process. 09/04: No acute event overnight but she does complain of new productive cough. No SOB or chest pain. Patient express she needs to do her taxes and is asking if she could go home first and go back to go to rehab. 09/05: Patient has been reporting of increasingly productive cough since yesterday. Chest x-ray showed worsening aeration hence chest CT was pursued last night and showed significant left lower lobar collapse. She does have productive cough this morning upon reassessment. Will start her on Levaquin, emphasized frequent incentive spirometry, CPT and will also add mucomist nebulization. Update pulmonology. Recommend 1-2 more days of aggressive pulmonary toilet and repeat CXR for re- evaluation prior to discharging patient to [place]. Reason For Visit: COPD EXACERBATION PNEUMONIA,DM,LEFT DM LUNG ULCER Physical Exam Vital Signs: Temp Pulse Resp BP Pulse Ox 97.6 F 80 15 155/69 H 94 09/05/18 12:00 09/05/18 12:00 09/05/18 12:00 09/05/18 12:00 09/05/18 12:00 Intake & Output 09/04/18 09/05/18 09/06/18 06:59 06:59 06:59 Intake Total 237 674 Output Total 650 Balance 237 24 Weight 162 lb 11.218 oz 163 lb 5.8 oz General appearance: PRESENT: no acute distress, well-developed, well-nourished Head exam: PRESENT: atraumatic, normocephalic Eye exam: PRESENT: conjunctiva pink, EOMI, PERRLA. ABSENT: scleral icterus Ear exam: PRESENT: normal external ear exam Mouth exam: PRESENT: moist, tongue midline Neck exam: ABSENT: carotid bruit, JVD, lymphadenopathy, thyromegaly Respiratory exam: PRESENT: crackles, rhonchi. ABSENT: wheezes Cardiovascular exam: PRESENT: RRR. ABSENT: diastolic murmur, rubs, systolic murmur Pulses: PRESENT: normal dorsalis pedis pul GI/Abdominal exam: PRESENT: normal bowel sounds, soft. ABSENT: distended, guarding, mass, organolmegaly, rebound, tenderness Rectal exam: PRESENT: deferred Neurological exam: PRESENT: alert, awake, oriented to person, oriented to place, oriented to time, oriented to situation, CN II-XII grossly intact. ABSENT: motor sensory deficit Results Laboratory Results: 09/04/18 04:14 09/04/18 04:14 08/23/18 08/23/18 08/28/18 03:38 03:38 06:15 Creatine Kinase 181 H CK-MB (CK-2) 3.60 Troponin I < 0.012 NT-Pro-B Natriuret Pep 1560 H 08/29/18 03:18 Creatine Kinase CK-MB (CK-2) Troponin I NT-Pro-B Natriuret Pep 1400 H Impressions: Chest CT 09/04/18 00:00 IMPRESSION: 1. Small bilateral effusions. Significant volume loss and consolidation in the left lower lobe with lesser volume loss in the right lower lobe. Chest X-Ray 09/04/18 07:00 IMPRESSION: 1. Mild worsening in right basilar aeration compared to prior. Assessment and Plan - Diagnosis (1) Acute respiratory failure with hypoxia and hypercapnia Is this a current diagnosis for this admission?: Yes Plan: Resolved. Stable on nasal cannula. (2) COPD exacerbation Is this a current diagnosis for this admission?: Yes Plan: Continue prednisone 20 mg bid for 3 more days. She will need to be discharged on a LABA/ICS inhaler like Advair as it seems she's only on albuterol and Spiriva at home. (3) Pneumonia Is this a current diagnosis for this admission?: Yes Plan: Discontinued antibiotics. She has completed 10 days of IV antibiotics. 09/05: Patient has been reporting of increasingly productive cough since yesterday. Chest x-ray showed worsening aeration hence chest CT was pursued last night and showed significant left lower lobar collapse. She does have productive cough this morning upon reassessment. Will start her on Levaquin, emphasized frequent incentive spirometry, CPT and will also add mucomist nebulization. Update pulmonology. Recommend 1-2 more days of aggressive pulmonary toilet and repeat CXR for re- evaluation prior to discharging patient to [facility]. (4) Diabetes mellitus Is this a current diagnosis for this admission?: Yes Plan: Hemoglobin A1c 10%. Sugars at goal. Continue Lantus and sliding scale. (5) Physical deconditioning Is this a current diagnosis for this admission?: Yes Plan: She will be going to SNF/rehab once cleared. - Time Time Spent with patient: 25-34 minutes
[2018-09-05] MEDS ORDERED: PREGABALIN 100 MG CAPSULE PO SCH (18:00)
[2018-09-05] MEDS ORDERED: ATORVASTATIN CALCIUM 10 MG TABLET PO SCH (22:00)
[2018-09-05] MEDS: VENLAFAXINE HCL 75 MG TABLET PO SCH (22:11)
[2018-09-06] MEDS: IPRATROPIUM/ALBUTEROL 0.5-2.5 MG/3 ML AMPUL NEB SCH ×3 (02:05→13:52)
[2018-09-06] MEDS: ACETYLCYSTEINE 20% SOLN 800 MG/4 ML VIAL.NEB NEB SCH ×3 (02:05→13:52)
[2018-09-06] MEDS: DILTIAZEM HCL 60 MG TABLET PO SCH ×2 (06:15→13:32)
[2018-09-06] MEDS: LEVOFLOXACIN 750 MG TABLET PO SCH (06:15)
[2018-09-06] MEDS: HEPARIN SOD (PORCINE) 5,000 UNIT/ML 1 ML SYRINGE SUBCUT SCH ×2 (06:15→13:32)
[2018-09-06] MEDS: INSULIN LISPRO 100 UNIT/ML 3 ML VIAL SUBCUT SCH ×2 (08:00→12:14)
[2018-09-06] MEDS: HYDRALAZINE HCL 50 MG TABLET PO SCH ×2 (09:38→13:32)
[2018-09-06] MEDS: NICOTINE 7 MG/24 HR PATCH.TD24 TD SCH (09:38)
[2018-09-06] MEDS: FERROUS SULFATE 325 MG TABLET PO SCH (09:38)
[2018-09-06] MEDS: FLUTICASONE NASAL SPRAY 50 MCG/SPRY 120 SPRAY/16 GM NASL SCH (09:38)
[2018-09-06] MEDS: PREDNISONE 20 MG TABLET PO SCH (09:39)
[2018-09-06] MEDS: FUROSEMIDE 20 MG TABLET PO SCH (09:39)
[2018-09-06] MEDS: FOLIC ACID 1 MG TABLET PO SCH (09:40)
[2018-09-06] MEDS: VENLAFAXINE HCL 75 MG TABLET PO SCH (09:40)
[2018-09-06] MEDS: INSULIN GLARGINE,HUM.REC.ANLOG 1,000 UNIT/10 ML VIAL SUBCUT SCH (09:42)
--- NOTE | 2018-09-06 14:31 | PDOC TRANSFER SUMMARY ---
General - Admit/Disc Date/PCP Admission Date/Primary Care Provider: 08/23/18 07:10 BARBARA LANTIGUA MD Discharge Date: 09/06/18 - Discharge Diagnosis (1) Acute respiratory failure with hypoxia and hypercapnia Is this a current diagnosis for this admission?: Yes Summary: The patient was intubated for the first week of her hospitalization. The respiratory failure was a combination of pneumonia as well as an exacerbation of chronic obstructive pulmonary disease. She has successfully been extubated and is now on nasal cannula. For the last 2 nights she has required BiPAP. She wou ld benefit from ongoing BiPAP therapy and continuous pulse oximetry study through the night to assess for desaturation in preparation for possible BiPAP or CPAP at home. She should follow-up with a gifts officer at discharge. She should also be referred to pulmonary rehab as she has a chronic respiratory element that would benefit from their program. (2) COPD exacerbation Is this a current diagnosis for this admission?: Yes Summary: The patient had received aggressive steroids, antibiotics and nebulizer treatments while intubated. She was successfully extubated. She is on nebulizer treatments. She is likely stable enough to transition back to inhaler therapy. She may benefit from a Trelogy inhaler or a dual medication inhaler with Spiriva. Complete prednisone as ordered. (3) Pneumonia Is this a current diagnosis for this admission?: Yes Summary: The patient was initially diagnosed with right-sided pneumonia. She was treated aggressively with intubated in the ICU. She completed a full course of antibiotic therapy. Over the last several days she developed increasing shortness of breath and required BiPAP at night. A CT scan obtained revealed partial collapse of lung from mucous plugging. She was placed on acetylcysteine. She states that she has been coughing up mucus and she does feel much better. We will continue the acetylcysteine for several more days as well as aggressive pulmonary treatments. She should also continue flutter valve and incentive spirometer. She is on levofloxacin currently and she should complete a 10-day course. (4) Diabetes mellitus type 2 in nonobese Is this a current diagnosis for this admission?: Yes Summary: She is on Lantus and sliding scale insulin. She typically exhibits higher sugars in the afternoon. I have increased her Lantus to 40 units in the morning and continue 35 units at night. Should help. Her Lantus will likely need to be adjusted as she tapers off her steroids as well. Continue cardiac/diabetic diet as well. She was on metformin 1 g twice daily at home. Consider restarting this if her sugars remain high off of steroid therapy. (5) Hypertension Is this a current diagnosis for this admission?: Yes Summary: The patient is now on diltiazem, hydralazine and furosemide. She was on Aldactone previously. The current regimen is working well. Adjustments back to her home medication regimen can be made while at the halfway facility if clinically indicated. (6) Lymphedema Is this a current diagnosis for this admission?: Yes Summary: The patient should return to outpatient care at the wound care clinic post discharge. She has experienced marked decrease in lower extremity edema as her legs have been elevated most of the hospitalization. She take advantage of this. We discussed intermittent elevation during the day and consideration of compression therapy either by stockings, wraps such as CircAid and possibly lymphedema pump therapy. (7) Physical deconditioning Is this a current diagnosis for this admission?: Yes Summary: Due to her prolonged illness as well as high acuity requiring intubation the patient is markedly deconditioned. She will transfer to a halfway facility ([facility]) for ongoing therapy. At discharge she should consider enrolling in the pulmonary rehab program at [facility] as well as home health. - Additional Information Resuscitation Status: Full Code Discharge Diet: Cardiac, Diabetic Discharge Activity: Activity As Tolerated, Balance Activity w/Rest, Energy Conservation Home Medications: Albuterol Sulfate [Proair HFA] 1 puff IH Q4HP PRN 03/24/18 Aspirin/Acetaminophen/Caffeine [Excedrin Extra Strength Caplet] 2 tab PO Q6HP PRN 03/24/18 Atorvastatin Calcium [Lipitor 10 mg Tablet] 10 mg PO QHS 03/24/18 Cholecalciferol (Vitamin D3) [Vitamin D3 5000 unit Capsule] 5,000 unit PO DAILY 03/24/18 Diltiazem HCl [Cartia Xt] 240 mg PO DAILY 03/24/18 Folic Acid [Folvite 1 mg Tablet] 1 mg PO DAILY 03/24/18 Hydralazine HCl [Apresoline 50 mg Tablet] 50 mg PO TID 03/24/18 Pramipexole Di-HCl [Mirapex ER] 3.75 mg PO QPM 03/24/18 Pregabalin [Lyrica 100 mg Capsule] 100 mg PO QPM 03/24/18 Venlafaxine HCl [Effexor Xr] 150 mg PO DAILY 03/24/18 Ferrous Sulfate [Feosol 325 mg Tablet] 325 mg PO DAILY 1 Days #60 tablet 03/29/18 Acetylcysteine [Mucomist 20% Soln 800 mg/4 mL] 600 mg NEB RTQ6 vial 09/06/18 Fluticasone Propionate [Flonase Nasal [place] 50 Mcg/[place] 16 gm] 2 spray NASL Q12 spray.pump 09/06/18 Furosemide [Lasix 20 mg Tablet] 20 mg PO BID tablet 09/06/18 Hydralazine HCl [Apresoline 50 mg Tablet] 50 mg PO TID tablet 09/06/18 Insulin Glargine,Hum.rec.anlog [Lantus Insulin 100 Unit/1 ml 10 ml] 35 unit SUBCUT QHS unit 09/06/18 Insulin Glargine,Hum.rec.anlog [Lantus Insulin 100 Unit/1 ml 10 ml] 40 unit SUBCUT QAM unit 09/06/18 Insulin Lispro [Humalog Insulin (Lispro) 100 unit/mL] 0 - 12 unit SUBCUT Q6 unit 09/06/18 Ipratropium/Albuterol Sulfate [Duoneb 3 ml Ampul] 3 ml NEB RTQ6 vial.neb 09/06/18 Levalbuterol HCl [Xopenex Neb 1.25 mg/3 ml Ampul] 1.25 mg NEB RTQ4HP PRN vial.neb 09/06/18 Levofloxacin [Levaquin 750 mg Tablet] 750 mg PO Q6AM tablet 09/06/18 Nicotine [Nicoderm 7 mg/24 Hr Transdermal Patch] 1 each TD DAILY patch.td24 09/06/18 Prednisone [Deltasone 20 mg Tablet] 20 mg PO BID tablet 09/06/18 History of Present Illness Admission Date/PCP: 08/23/18 07:10 BARBARA LANTIGUA MD Patient complains of: Cough with increased shortness of breath History of Present Illness: VIVEK MAGUIRE is a 72 year old female with multiple comorbidities who presented to the emergency department with increasing shortness of breath as well as cough. She was diagnosed with a right lower lobe pneumonia. She exhibited increased work of breathing with increased oxygen requirements, infiltrate on x-ray, leukocytosis and was referred to the hospital service for admission. Hospital Course Hospital Course: The patient has had a prolonged hospital course. Within 24-48 hours of admission the patient declined and required intubation and mechanical ventilation. She had a prolonged course in the intensive care unit. She was treated with aggressive antibiotic therapy, respiratory treatments, steroids and antibiotics. Patient was doing well post extubation. Over the last several days she has been noticing increasing shortness of breath. X-ray and subsequent CT scan showed new infiltrate on the left with partial collapse likely from mucous plugging. The patient was restarted on levofloxacin and prednisone. Acetylcysteine nebulizer treatments were added. She has been coughing up some mucus and feels much better. Please see above for added details of hospitalization. The patient is stable and ready for transfer to [facility]. She will need physical therapy as well as ongoing pulmonary/respiratory care. Post discharge she should consider enrolling in the pulmonary rehab program at [facility] as well as following up with pulmonology in addition to her primary care physician. Physical Exam Vital Signs: Temp Pulse Resp BP Pulse Ox 97.4 F 80 16 142/67 H 94 09/06/18 11:26 09/06/18 13:52 09/06/18 13:52 09/06/18 11:26 09/06/18 13:52 Intake & Output 09/05/18 09/06/18 09/07/18 06:59 06:59 06:59 Intake Total 674 1490 Output Total 650 175 Balance 24 1315 Weight 74.1 kg 73.5 kg General appearance: PRESENT: no acute distress, cooperative, well-developed Head exam: PRESENT: atraumatic, normocephalic Eye exam: PRESENT: conjunctiva pink, EOMI. ABSENT: scleral icterus Ear exam: PRESENT: normal external ear exam Mouth exam: PRESENT: moist, tongue midline Neck exam: ABSENT: carotid bruit, JVD, lymphadenopathy Respiratory exam: PRESENT: prolonged expiratory phas, rhonchi - On the left, symmetrical. ABSENT: rales, stridor, tachypnea, wheezes Cardiovascular exam: PRESENT: RRR, +S1, +S2 GI/Abdominal exam: PRESENT: normal bowel sounds, soft. ABSENT: distended, tenderness Rectal exam: PRESENT: deferred Gentrourinary exam: ABSENT: indwelling catheter Extremities exam: ABSENT: pedal edema - Marked improvement from patient's baseline prior to admission Musculoskeletal exam: PRESENT: ambulatory Neurological exam: PRESENT: alert, awake, oriented to person, oriented to place, oriented to time, oriented to situation, CN II-XII grossly intact Psychiatric exam: PRESENT: appropriate affect, normal mood. ABSENT: agitated, anxious Focused psych exam: ABSENT: delusional, restlessness Skin exam: PRESENT: dry, warm. ABSENT: rash Results Laboratory Results: 09/04/18 04:14 09/04/18 04:14 08/23/18 08/23/18 08/28/18 03:38 03:38 06:15 Creatine Kinase 181 H CK-MB (CK-2) 3.60 Troponin I < 0.012 NT-Pro-B Natriuret Pep 1560 H 08/29/18 03:18 Creatine Kinase CK-MB (CK-2) Troponin I NT-Pro-B Natriuret Pep 1400 H Impressions: Chest CT 09/04/18 00:00 IMPRESSION: 1. Small bilateral effusions. Significant volume loss and consolidation in the left lower lobe with lesser volume loss in the right lower lobe. Chest X-Ray 09/04/18 07:00 IMPRESSION: 1. Mild worsening in right basilar aeration compared to prior. Transfer Plan - Disposition Transfer Plan: The patient will transfer to [facility] for short-term treatment. - Time Spent with Patient Time spent with patient: Greater than 30 Minutes - 45 minutes spent preparing the transfer to halfway facility Qualifiers - * PATIENT BEING DISCHARGED WITH ANY OF THE FOLLOWING DIAGNOSIS: No Plan Discharge Plan: As above Time Spent: Greater than 30 Minutes
[2018-09-06 16:45] VITALS: BP 159/74
[2018-09-06] MEDS ORDERED: INSULIN GLARGINE,HUM.REC.ANLOG 1,000 UNIT/10 ML VIAL SUBCUT SCH (22:00)
[2018-09-07] MEDS ORDERED: INSULIN GLARGINE,HUM.REC.ANLOG 1,000 UNIT/10 ML VIAL SUBCUT SCH (08:00)
== END 2018-09-06 17:49 | DRG 207 ==
LOC: ER 03:25 → EH 07:10 → 5 09:42 → 3W 08-25 18:02 → ICU 08-25 18:46 → 5 09-01 19:45
PROVIDERS: ADMIT Internal Medicine; ATTEND Internal Medicine
PROC: 5A09357 Assistance with Respiratory Ventilation, Less than 24 Consecutive Hours, Continuous Positive Airway Pressure (ICD-10-PCS; 2018-08-23)
PROC: 3E0F3GC Introduction of Other Therapeutic Substance into Respiratory Tract, Percutaneous Approach (ICD-10-PCS; 2018-08-23)
PROC: 5A1955Z Respiratory Ventilation, Greater than 96 Consecutive Hours (ICD-10-PCS; principal; 2018-08-25)
PROC: 0BH17EZ Insertion of Endotracheal Airway into Trachea, Via Natural or Artificial Opening (ICD-10-PCS; 2018-08-25)
PROC: 30233N1 Transfusion of Nonautologous Red Blood Cells into Peripheral Vein, Percutaneous Approach (ICD-10-PCS; 2018-08-26)
DX: J44.0 Chronic obstructive pulmonary disease with (acute) lower respiratory infection (principal); J18.1 Lobar pneumonia, unspecified organism; J96.22 Acute and chronic respiratory failure with hypercapnia; J96.21 Acute and chronic respiratory failure with hypoxia; N17.9 Acute kidney failure, unspecified; T17.890A Other foreign object in other parts of respiratory tract causing asphyxiation, initial encounter; L97.921 Non-pressure chronic ulcer of unspecified part of left lower leg limited to breakdown of skin; E87.1 Hypo-osmolality and hyponatremia; J98.19 Other pulmonary collapse; E11.622 Type 2 diabetes mellitus with other skin ulcer; E11.69 Type 2 diabetes mellitus with other specified complication; E11.51 Type 2 diabetes mellitus with diabetic peripheral angiopathy without gangrene; E11.65 Type 2 diabetes mellitus with hyperglycemia; E11.22 Type 2 diabetes mellitus with diabetic chronic kidney disease; D63.1 Anemia in chronic kidney disease; F10.10 Alcohol abuse, uncomplicated; D50.8 Other iron deficiency anemias; F17.210 Nicotine dependence, cigarettes, uncomplicated; J44.1 Chronic obstructive pulmonary disease with (acute) exacerbation; I89.0 Lymphedema, not elsewhere classified; E78.5 Hyperlipidemia, unspecified; F32.9 Major depressive disorder, single episode, unspecified; G47.00 Insomnia, unspecified; L40.9 Psoriasis, unspecified; L85.9 Epidermal thickening, unspecified; G25.81 Restless legs syndrome; I12.9 Hypertensive chronic kidney disease with stage 1 through stage 4 chronic kidney disease, or unspecified chronic kidney disease; N18.9 Chronic kidney disease, unspecified; Z79.82 Long term (current) use of aspirin; Z79.4 Long term (current) use of insulin; Z79.52 Long term (current) use of systemic steroids; Z91.81 History of falling; Z89.412 Acquired absence of left great toe; Z88.0 Allergy status to penicillin; Z88.8 Allergy status to other drugs, medicaments and biological substances; Z71.6 Tobacco abuse counseling; Z91.14 Patient's other noncompliance with medication regimen
CPT/HCPCS: 31500; 36415; 36430; 36600; 71045; 71250; 80048; 80053; 82550; 82553; 82607; 82728; 82746; 82803; 82962; 83036; 83540; 83550; 83735; 83880; 84100; 84484; 85025; 85045; 86850; 86900; 86901; 86920; 87040; 87070; 87205; 87493; 93005; 93010; 94002; 94003; 94640; 94660; 94667; 94668; 94799; 96365; 96375; 99285; J0330; J0360; J0456; J0696; J1100; J1644; J1815; J1940; J1956; J2060; J2704; J2920; J2930; J3411; J3475; J3490; J7030; J7060; J7120; J7512; J7620; P9016; S0164

== ENCOUNTER 2018-09-08 17:27 | Emergency (ER) | payer MEDICARE, BC, OTHER ==
[2018-09-08] MEDS ORDERED: NORMAL SALINE 1000 ML 1,000 ML IV ONE (19:00)
--- NOTE | 2018-09-08 19:03 | ER Document Report ---
ED General - General Chief Complaint: Weakness Stated Complaint: WEAKNESS Time Seen by Provider: 09/08/18 18:32 Primary Care Provider: BARBARA LANTIGUA MD [Primary Care Provider] - Follow up as needed Notes: Patient is a 72-year-old female with a past medical history of COPD without oxygen dependency, recent hospitalization for pneumonia with hypercapnia and hypoxemia, required intubation and ICU stay, who was discharged to [facility] on 09/06, states that she left the facility on 09/07 in the morning AGAINST MEDICAL ADVICE. She was taken home by a friend who apparently set her on the ground per her request and left her there. The patient did not fall or injure herself. She states that she crawled on the floor to her bedroom and has been lying on the ground there since that time. This has been roughly 36 hours in the ground. She has not ate or drank during that timeframe. She denies any acute injuries. No focal complaints other than feeling very dehydrated. She states that she was unable to walk or stand on her own at time of discharge from the hospital or at time of discharge from the nursing facility and does understand that that is why she was sent to rehabilitation. The patient states that she does not wish to go back to rehabilitation. She currently complains of global, throbbing, aching discomfort. Nothing improves or worsens that symptom. Denies focal weakness. No head or neck trauma. Denies any difficulty breathing. No cough or fever. TRAVEL OUTSIDE OF THE [place] IN LAST 30 DAYS: No - Related Data Allergies/Adverse Reactions: valsartan [From Diovan] Allergy (Unknown, Verified 03/31/18 08:53) Penicillins Allergy (Verified 03/31/18 08:53) exenatide [From Byetta] Adverse Reaction (Severe, Verified 03/31/18 08:53) Migraine quetiapine [From Seroquel] Adverse Reaction (Verified 08/23/18 03:32) insomnia topiramate [From Topamax] Adverse Reaction (Verified 08/23/18 03:33) vision changes Past Medical History - General Information source: Patient - Social History Smoking Status: Former Smoker Chew tobacco use (# tins/day): No Frequency of alcohol use: Heavy Drug Abuse: None Lives with: Alone Family History: Reviewed & Not Pertinent, CAD, Malignancy, Other Patient has suicidal ideation: No Patient has homicidal ideation: No - Past Medical History Cardiac Medical History: Reports: Hx Hypercholesterolemia, Hx Hypertension, Hx Peripheral Vascular Disease Denies: Hx Atrial Fibrillation, Hx Congestive Heart Failure, Hx Pulmonary Embolism Pulmonary Medical History: Reports: Hx Asthma, Hx Bronchitis, Hx COPD Endocrine Medical History: Reports: Hx Diabetes Mellitus Type 1, Hx Diabetes Mellitus Type 2 Renal/ Medical History: Denies: Hx Peritoneal Dialysis Psychiatric Medical History: Reports: Hx Depression Past Surgical History: Reports: Hx Adenoidectomy, Hx Orthopedic Surgery - Patient has had both left and right hip fracture repairs secondary to falls, Hx Tonsillectomy, Other - Cataract, left great toe amputation - Immunizations Hx Diphtheria, Pertussis, Tetanus Vaccination: Yes Hx Pneumococcal Vaccination: 05/24/11 Review of Systems - Review of Systems Notes: Constitutional: Negative for fever. HENT: Negative for sore throat. Eyes: Negative for visual changes. Cardiovascular: Negative for chest pain. Respiratory: Negative for shortness of breath. Gastrointestinal: Negative for abdominal pain, vomiting or diarrhea. Genitourinary: Negative for dysuria. Musculoskeletal: Negative for back pain. Skin: Negative for rash. Neurological: Negative for headaches, positive for global weakness 10 point ROS negative except as marked above and in HPI. Physical Exam - Vital signs Vitals: Pulse Ox 93 09/08/18 17:31 Interpretation: Normal Notes: PHYSICAL EXAMINATION: GENERAL: Frail, cachectic, ill in appearance but in no overt distress HEAD: Atraumatic, normocephalic. EYES: Pupils equal round and reactive to light, extraocular movements intact, sclera anicteric, conjunctiva are normal. ENT: nares patent, oropharynx clear without exudates. Very dry mucous membranes NECK: Normal range of motion, supple without lymphadenopathy LUNGS: Breath sounds clear to auscultation bilaterally and equal. No wheezes rales or rhonchi. HEART: Regular rate and rhythm without murmurs ABDOMEN: Soft, nontender, normoactive bowel sounds. No guarding, no rebound. N o masses appreciated. EXTREMITIES: Normal range of motion, no pitting or edema. No cyanosis. NEUROLOGICAL: No focal neurological deficits. Moves all extremities spontaneously and on command. PSYCH: Alert, oriented x3. Poor insight and judgment SKIN: Warm, Dry, normal turgor, scattered pressure sores although no deep wounds Course - Re-evaluation Re-evalutation: 09/08/18 19:18 Presentation of a very dehydrated elderly female who is frail and weak at baseline decided to leave a nursing facility AGAINST MEDICAL ADVICE and was lying on the ground since that time. This is quite a difficult situation at this point the patient may not meet medical criteria for rehospitalization but is completely unable to be at home independently. Labs are pending including evaluation for possible rhabdomyolysis given the duration of time for which she was lying on the ground. 09/08/18 22:08 Labs unremarkable without any evidence of renal dysfunction rhabdomyolysis or any other acute medical pathology. The patient does not meet inpatient criteria I discussed with the hospitalist on-call Dr. Acosta who concurs. She is not safe for discharge home. A social media sr strategy manager consult has been placed and she will remain in the emergency department so we can get her placed back into a nursing facility - Vital Signs Vital signs: Temp Pulse Resp BP Pulse Ox 98.1 F 89 12 171/79 H 96 09/08/18 18:17 09/08/18 18:17 09/08/18 22:01 09/08/18 22:01 09/08/18 22:01 - Laboratory Result Diagrams: 09/08/18 19:13 09/08/18 19:13 Laboratory results interpreted by me: 09/08/18 09/08/18 09/08/18 19:13 19:13 21:06 WBC 14.8 H MCH 25.7 L RDW 17.8 H Seg Neutrophils % 89.2 H Lymphocytes % 6.2 L Absolute Neutrophils 13.2 H Potassium 3.4 L Carbon Dioxide 31 H Anion Gap 2 L BUN 29 H Glucose 203 H Calcium 8.0 L ALT 56 H Total Protein 4.8 L Albumin 2.6 L Urine Protein 100 H Urine Glucose (UA) 50 H Urine Ketones 20 H Urine Blood MODERATE H Discharge - Discharge Clinical Impression: Debility, Unable to ambulate, Physical deconditioning, History of COPD Condition: Fair Disposition: HOME-SNF (ED ONLY) Referrals: BARBARA LANTIGUA MD [Primary Care Provider] - Follow up as needed
[2018-09-08 19:27] LABS: ABSOLUTE LYMPHOCYTES (AUTO) 0.9 10^3/uL (0.5-4.7); ABSOLUTE MONOCYTES (AUTO) 0.6 10^3/uL (0.1-1.4); ABSOLUTE NEUT (AUTO) 13.2 10^3/uL (1.7-8.2); BASOPHILS % (AUTO) 0.1 % (0-2); EOSINOPHILS % (AUTO) 0.2 % (0-6); HEMATOCRIT 38.7 % (36.0-47.0); HEMOGLOBIN 12.4 g/dL (12.0-15.5); LYMPHOCYTES % (AUTO) 6.2 % (13-45); MEAN CORPUSCULAR HEMOGLOBIN 25.7 pg (27.0-33.4); MEAN CORPUSCULAR VOLUME 80 fl (80-97); MONOCYTES % (AUTO) 4.3 % (3-13); PLATELET COUNT 184 10^3/uL (150-450); RED BLOOD COUNT 4.83 10^6/uL (3.72-5.28); RED CELL DISTRIBUTION WIDTH 17.8 % (11.5-14.0); SEGMENTED NEUTROPHILS % (AUTO) 89.2 % (42-78); TOTAL CELLS COUNTED % (AUTO) 100 %; WHITE BLOOD COUNT 14.8 10^3/uL (4.0-10.5)
[2018-09-08 19:45] LABS: ALANINE AMINOTRANSFERASE 56 U/L (9-52); ALBUMIN 2.6 g/dL (3.5-5.0); ALKALINE PHOSPHATASE 56 U/L (38-126); ASPARTATE AMINO TRANSFERASE 19 U/L (14-36); BILIRUBIN,DIRECT 0.2 mg/dL (0.0-0.4); BILIRUBIN,TOTAL 0.8 mg/dL (0.2-1.3); BLOOD UREA NITROGEN 29 mg/dL (7-20); CREATINE KINASE 48 U/L (30-135); GLUCOSE 203 mg/dL (75-110); POTASSIUM 3.4 mmol/L (3.6-5.0); TOTAL PROTEIN 4.8 g/dL (6.3-8.2)
[2018-09-08 19:50] LABS: CARBON DIOXIDE 31 mmol/L (22-30); CHLORIDE 104 mmol/L (98-107); SODIUM 137.3 mmol/L (137-145)
[2018-09-08 19:51] LABS: ANION GAP 2 (5-19)
[2018-09-08 21:39] LABS: APPEARANCE,URINE CLEAR; BILIRUBIN,URINE NEGATIVE (NEGATIVE); COLOR,URINE YELLOW; GLUCOSE, URINE 50 mg/dL (NEGATIVE); KETONES,URINE 20 mg/dL (NEGATIVE); LEUKOCYTE ESTERASE,URINE NEGATIVE (NEGATIVE); NITRITE,URINE NEGATIVE (NEGATIVE); PROTEIN,URINE 100 mg/dL (NEGATIVE); URINE SPECIFIC GRAVITY 1.017; UROBILINOGEN,URINE NEGATIVE mg/dL (<2.0)
--- NOTE | 2018-09-09 11:13 | ER Document Report ---
Doctor's Note Notes: 09/09/18 11:12 Patient resting comfortably currently waiting on paperwork that he filled out by her social group here to have the patient sent back to [facility] facility where she is on herself out AGAINST MEDICAL ADVICE.
[2018-09-09 14:25] VITALS: BP 137/71
== END 2018-09-09 14:30 ==
LOC: ER 17:27
DX: R53.81 Other malaise (principal); R53.1 Weakness; J44.9 Chronic obstructive pulmonary disease, unspecified; Z99.81 Dependence on supplemental oxygen; Z87.891 Personal history of nicotine dependence; I10 Essential (primary) hypertension; E11.9 Type 2 diabetes mellitus without complications
CPT/HCPCS: 99285; 96360; 96361; 51701; 36415; 82962; 82550; 85025; 80053; 81001; J7030

== ENCOUNTER 2018-10-07 11:09 | Inpatient (IN) | payer MEDICARE, BC, OTHER ==
[2018-10-07] MEDS ORDERED: IPRATROPIUM/ALBUTEROL 0.5-2.5 MG/3 ML AMPUL NEB ONE ×2 (11:36→16:08)
[2018-10-07] MEDS ORDERED: METHYLPREDNISOLONE INJ 125 MG/2 ML SDV IV ONE (11:36)
--- NOTE | 2018-10-07 11:41 | ER Document Report ---
ED Respiratory Problem - General Stated Complaint: BREATHING DIFFICULTY Time Seen by Provider: 10/07/18 11:35 Primary Care Provider: REILLY GO MD [NO LOCAL MD] - Follow up as needed Notes: 72-year-old female with a history of COPD presents to the ER with difficulty breathing. Patient was in the hospital a month ago. She is had trouble with pneumonia on and off. She states she does not have oxygen at home nor does she have any nebulizers or inhalers. Patient states she is progressively getting more more short of breath in the last several days have been the most severe she had especially bad time last night she is been coughing coughing up thick sputum which is her norm. Denies any chest pain but has had tightness. Has had a little bit of leg swelling but nothing more than the norm. Patient states any little exertion she gets very short of breath. TRAVEL OUTSIDE OF THE [place] IN LAST 30 DAYS: No - Related Data Allergies/Adverse Reactions: valsartan [From Diovan] Allergy (Unknown, Verified 03/31/18 08:53) Penicillins Allergy (Verified 03/31/18 08:53) exenatide [From Byetta] Adverse Reaction (Severe, Verified 03/31/18 08:53) Migraine quetiapine [From Seroquel] Adverse Reaction (Verified 08/23/18 03:32) insomnia topiramate [From Topamax] Adverse Reaction (Verified 08/23/18 03:33) vision changes Past Medical History - Social History Smoking Status: Current Every Day Smoker Family History: Reviewed & Not Pertinent, CAD, Malignancy, Other - Past Medical History Cardiac Medical History: Reports: Hx Hypercholesterolemia, Hx Hypertension, Hx Peripheral Vascular Disease Denies: Hx Atrial Fibrillation, Hx Congestive Heart Failure, Hx Pulmonary Embolism Pulmonary Medical History: Reports: Hx Asthma, Hx Bronchitis, Hx COPD Endocrine Medical History: Reports: Hx Diabetes Mellitus Type 1, Hx Diabetes Mellitus Type 2 Renal/ Medical History: Denies: Hx Peritoneal Dialysis Psychiatric Medical History: Reports: Hx Depression Past Surgical History: Reports: Hx Adenoidectomy, Hx Orthopedic Surgery - Patient has had both left and right hip fracture repairs secondary to falls, Hx Tonsillectomy, Other - Cataract, left great toe amputation - Immunizations Hx Diphtheria, Pertussis, Tetanus Vaccination: Yes Hx Pneumococcal Vaccination: 05/24/11 Review of Systems - Review of Systems Constitutional: denies: Chills, Fever Cardiovascular: Edema. denies: Chest pain Respiratory: Cough, Short of breath, Wheezing. denies: Hemoptysis Gastrointestinal: denies: Nausea, Vomiting Genitourinary: denies: Dysuria, Flank pain Neurological/Psychological: denies: Headaches -: Yes All other systems reviewed and negative Physical Exam - Vital signs Vitals: Temp Pulse Resp BP Pulse Ox 98.4 F 109 H 23 H 183/97 H 94 10/07/18 11:15 10/07/18 11:15 10/07/18 11:15 10/07/18 11:15 10/07/18 11:15 - Notes Notes: GENERAL_APPEARANCE: well_nourished, alert, cooperative, obvious respiratory diff iculty VITALS: reviewed, see vital signs table. HEAD: no_swelling\tenderness on the head. EYES: PERRL, EOMI, conjunctiva_clear. NOSE: no_nasal_discharge. MOUTH: Mucous membranes THROAT: no_tonsilar_inflammation, no_airway_obstruction. no_lymphadenopathy NECK: supple, no_neck_tenderness, (-)thyromegaly. BACK: no_back_tenderness. CHEST_WALL: no_chest_tenderness. LUNGS: Scattered_wheezing, no_rales, no_rhonchi, positive accessory muscle use, there air exchange bilateral. HEART: normal_rate, normal_rhythm, normal_S1, normal_S2, (-)S3, (-)S4, no_murmur, no_rub. ABDOMEN: normal_BS, soft, no_abd_tenderness, (-)guarding, (-)rebound, no_organomegaly, no_abd_masses. EXTREMITIES: good pulses in all_extremities, no_swelling\tenderness in the extremities, 2+_edema. SKIN: warm, dry, good_color, skin changes lower extremities MENTAL_STATUS: speech_clear, oriented_X_3, normal_affect, resp onds_appropriately to questions. Course - Re-evaluation Re-evalutation: 10/07/18 11:40 72-year-old female history COPD presents to the ER with COPD exacerbation. We will give the patient aerosol treatment steroids. Will assess for any pneumonia or anything requiring antibiotics. 10/07/18 16:30 Chest x-ray shows some chronic opacities and chronic changes. White count is 13 I will cover the patient with Rocephin. This may just be chronic changes. However will cover with Rocephin. The patient's work of breathing has improved after aerosol treatments and steroids. She does have an oxygen requirement about 4 to 5 L nasal cannula. When she is awake she sats well above 90 however when she falls asleep she is a mouth breather. And her sats dropped if he put the nasal cannula in her mouth she saturates fine. Because of the oxygen requirement the patient will need to come in the hospital and continue to have aerosol treatments and good pulmonary hygiene. Can use steroids. Is important to know that if she falls asleep she will mouth breathing drop her sats. The patient's troponin was mildly elevated at 0.4. This likely due to demand ischemia due to her COPD exacerbation. She has calm down quite a bit is feeling much better. 10/07/18 16:32 Spoke with the hospitalist service for hospitalization. - Vital Signs Vital signs: Temp Pulse Resp BP Pulse Ox 98.4 F 109 H 10 L 160/93 H 86 L 10/07/18 11:15 10/07/18 11:15 10/07/18 16:00 10/07/18 15:01 10/07/18 16:00 - Laboratory Result Diagrams: 10/07/18 11:42 10/07/18 11:42 Laboratory results interpreted by me: 10/07/18 10/07/18 10/07/18 11:42 11:42 11:42 WBC 13.5 H MCH 26.2 L MCHC 31.6 L RDW 21.6 H Seg Neutrophils % 86.5 H Lymphocytes % 8.3 L Absolute Neutrophils 11.7 H Sodium 146.3 H Potassium 3.3 L Carbon Dioxide 34 H BUN 52 H Creatinine 1.35 H Est GFR ( Amer) 47 L Est GFR (Non-Af Amer) 38 L NT-Pro-B Natriuret Pep 7450 H - Diagnostic Test Radiology reviewed: Reports reviewed Radiology results interpreted by me: 10/07/18 16:10 Chest X-Ray 10/07/18 11:36 IMPRESSION: Improved aeration of the lung bases with persistent versus recurrent bibasilar airspace opacities. - EKG Interpretation by Me EKG shows normal: Sinus rhythm Rate: Tachycardia When compared to previous EKG there are: No significant change Critical Care Note - Critical Care Note Total time excluding time spent on procedures (mins): 31 Discharge - Discharge Clinical Impression: COPD exacerbation, Acute respiratory failure with hypoxia and hypercapnia Condition: Fair Disposition: ADMITTED OBSERVATION Admitting Provider: Mckenna (Hospitalist) Unit Admitted: Telemetry Referrals: REILLY GO MD [NO LOCAL MD] - Follow up as needed
[2018-10-07 12:06] LABS: ABSOLUTE BASOPHILS # (AUTO) 0.1 10^3/uL (0.0-0.2); ABSOLUTE LYMPHOCYTES (AUTO) 1.1 10^3/uL (0.5-4.7); ABSOLUTE MONOCYTES (AUTO) 0.6 10^3/uL (0.1-1.4); ABSOLUTE NEUT (AUTO) 11.7 10^3/uL (1.7-8.2); BASOPHILS % (AUTO) 0.4 % (0-2); EOSINOPHILS % (AUTO) 0.2 % (0-6); HEMATOCRIT 43.3 % (36.0-47.0); HEMOGLOBIN 13.7 g/dL (12.0-15.5); LYMPHOCYTES % (AUTO) 8.3 % (13-45); MEAN CORPUSCULAR HEMOGLOBIN 26.2 pg (27.0-33.4); MEAN CORPUSCULAR HGB CONC 31.6 g/dL (32.0-36.0); MEAN CORPUSCULAR VOLUME 83 fl (80-97); MONOCYTES % (AUTO) 4.6 % (3-13); PLATELET COUNT 290 10^3/uL (150-450); RED BLOOD COUNT 5.22 10^6/uL (3.72-5.28); RED CELL DISTRIBUTION WIDTH 21.6 % (11.5-14.0); SEGMENTED NEUTROPHILS % (AUTO) 86.5 % (42-78); TOTAL CELLS COUNTED % (AUTO) 100 %; WHITE BLOOD COUNT 13.5 10^3/uL (4.0-10.5)
--- NOTE | 2018-10-07 12:20 | RADIOLOGY REPORT (SQ) ---
EXAM DESCRIPTION: CHEST SINGLE VIEW COMPLETED DATE/TIME: 10/07/2018 11:59 am REASON FOR STUDY: sob COMPARISON: 09/04/2018, 09/02/2018, 09/01/2018, and 03/28/2018 EXAM PARAMETERS: NUMBER OF VIEWS: One view. TECHNIQUE: Single frontal radiographic view of the chest acquired. RADIATION DOSE: NA LIMITATIONS: None. FINDINGS: LUNGS AND PLEURA: Improved aeration of the lung bases with persistent versus recurrent bib asilar airspace opacities. MEDIASTINUM AND HILAR STRUCTURES: No masses. Contour normal. HEART AND VASCULAR STRUCTURES: Heart normal in size. Moderate aortic tortuosity. No central vascula r congestion. BONES: No acute findings. HARDWARE: None in the chest. OTHER: No other significant finding. IMPRESSION: Improved aeration of the lung bases with persistent versus recurrent bibasilar airspace opacities. TECHNICAL DOCUMENTATION: JOB ID: [id number] [employer]- All Rights Reserved Reading location - IP/workstation name: [email or web address]
[2018-10-07] MEDS: ALBUTEROL SULFATE 0.083% NEB 2.5 MG/3 ML AMPUL NEB SCH ×2 (12:27→13:07)
[2018-10-07 12:36] LABS: ALANINE AMINOTRANSFERASE 40 U/L (9-52); ALBUMIN 3.7 g/dL (3.5-5.0); ALKALINE PHOSPHATASE 98 U/L (38-126); ANION GAP 9 (5-19); ASPARTATE AMINO TRANSFERASE 34 U/L (14-36); BILIRUBIN,DIRECT 0.4 mg/dL (0.0-0.4); BILIRUBIN,TOTAL 0.4 mg/dL (0.2-1.3); BLOOD UREA NITROGEN 52 mg/dL (7-20); CARBON DIOXIDE 34 mmol/L (22-30); CHLORIDE 103 mmol/L (98-107); CREATINE KINASE 36 U/L (30-135); GLUCOSE 91 mg/dL (75-110); POTASSIUM 3.3 mmol/L (3.6-5.0); SODIUM 146.3 mmol/L (137-145); TOTAL PROTEIN 7.1 g/dL (6.3-8.2)
[2018-10-07 12:46] LABS: TROPONIN I 0.424 ng/mL
[2018-10-07] MEDS ORDERED: CEFTRIAXONE 1 GM/D5W RTU 1 GM/50 ML RTUPB IV ONE (16:08)
--- NOTE | 2018-10-07 16:21 | EKG REPORT ---
SEVERITY:- ABNORMAL ECG - SINUS TACHYCARDIA PAIRED VENTRICULAR PREMATURE COMPLEXES ANTERIOR INFARCT, AGE INDETERMINATE : Confirmed by: Isma Cohen MD 07-Oct-2018 16:21:29
[2018-10-07] MEDS ORDERED: OXYCODONE-ACETAMINOPHEN 5-325 MG TABLET PO PRN (17:37)
[2018-10-07] MEDS ORDERED: ONDANSETRON 4 MG TAB.RAPDIS PO PRN (17:37)
[2018-10-07] MEDS ORDERED: PROMETHAZINE HCL INJ 25 MG/1 ML VIAL IV PRN (17:37)
[2018-10-07] MEDS ORDERED: MAG HYDROX/AL HYDROX/SIMETH SUSP 30 ML UDCUP PO PRN (17:37)
--- NOTE | 2018-10-07 18:10 | PDOC H&P ---
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 Have no relatives except for a close friend Mr. Hall's phone number is [phone]. Patient is presenting to ED with worsening shortness of breath on exertion, not on home oxygen, productive cough, mild left lower extremity swelling, denies any fever, chest pain, nausea, vomiting, abdominal pain, diarrhea, constipation or any urinary symptoms. In ED she was found to have a SBP 183/97, T-max 98, pulse 109, RR 1029, FiO2 86-94% on 4 L NC. WBC 13.5, no bandemia, hemoglobin 13.7, platelets 290, sodium 146.3, potassium 3.3, creatinine 1.35 baseline 1.3, 0.0 0.4-4 BNP 7450 up from 1400 on 08/29/2018. CXR: Persistent recurrent bibasilar airspace opacities. EKG sinus tachycardia. In Ed she was started on IV ceftriaxone, DuoNeb's, IV steroids. Past Medical History Cardiac Medical History: Reports: Hyperlipidema, Hypertension, Peripheral Vascular Disease Denies: Atrial Fibrillation, Congestive Heart Failure, Pulmonary Embolism Pulmonary Medical History: Reports: Asthma, Bronchitis, Chronic Obstructive Pulmonary Disease (COPD) Endocrine Medical History: Reports: Diabetes Mellitus Type 1, Diabetes Mellitus Type 2 Psychiatric Medical History: Reports: Depression Hematology: Denies: Bleeding Tendencies Past Surgical History Past Surgical History: Reports: Adenoidectomy, Orthopedic Surgery - Patient has had both left and right hip fracture repairs secondary to falls, Tonsillectomy, Other - Cataract, left great toe amputation Social History Smoking Status: Current Every Day Smoker Frequency of Alcohol Use: Heavy Hx Recreational Drug Use: No Drugs: None Hx Prescription Drug Abuse: No Family History Family History: Reviewed & Not Pertinent, CAD, Malignancy, Other Parental Family History Reviewed: Yes Children Family History Reviewed: Yes Sibling(s) Family History Reviewed.: Yes Medication/Allergy Allergies/Adverse Reactions: valsartan [From Diovan] Allergy (Unknown, Verified 03/31/18 08:53) Penicillins Allergy (Verified 03/31/18 08:53) exenatide [From Byetta] Adverse Reaction (Severe, Verified 03/31/18 08:53) Migraine quetiapine [From Seroquel] Adverse Reaction (Verified 08/23/18 03:32) insomnia topiramate [From Topamax] Adverse Reaction (Verified 08/23/18 03:33) vision changes Review of Systems Review of Systems: as per hpi Physical Exam Vital Signs: Temp Pulse Resp BP Pulse Ox 98.4 F 109 H 10 L 157/91 H 94 10/07/18 11:15 10/07/18 11:15 10/07/18 16:01 10/07/18 16:01 10/07/18 16:01 Intake & Output 10/06/18 10/07/18 10/08/18 06:59 06:59 06:59 Intake Total 50 Balance 50 Weight 59.421 kg General appearance: PRESENT: disheveled, mild distress, well-developed, well- nourished Head exam: PRESENT: atraumatic, normocephalic Neck exam: ABSENT: carotid bruit, JVD, lymphadenopathy, thyromegaly Respiratory exam: PRESENT: accessory muscle use, prolonged expiratory phas, tachypnea, wheezes Cardiovascular exam: PRESENT: RRR, tachycardia. ABSENT: diastolic murmur, rubs, systolic murmur Pulses: PRESENT: normal dorsalis pedis pul GI/Abdominal exam: PRESENT: normal bowel sounds, soft. ABSENT: distended, guarding, mass, organolmegaly, rebound, tenderness Extremities exam: PRESENT: full ROM. ABSENT: calf tenderness, clubbing, pedal edema Neurological exam: PRESENT: alert, awake, oriented to person, oriented to place, oriented to time, oriented to situation, CN II-XII grossly intact. ABSENT: motor sensory deficit Results Laboratory Results: 10/07/18 11:42 10/07/18 11:42 10/07/18 10/07/18 11:42 11:42 WBC 13.5 H RBC 5.22 Hgb 13.7 Hct 43.3 MCV 83 MCH 26.2 L MCHC 31.6 L RDW 21.6 H Plt Count 290 Seg Neutrophils % 86.5 H Lymphocytes % 8.3 L Monocytes % 4.6 Eosinophils % 0.2 Basophils % 0.4 Absolute Neutrophils 11.7 H Absolute Lymphocytes 1.1 Absolute Monocytes 0.6 Absolute Eosinophils 0.0 Absolute Basophils 0.1 Sodium 146.3 H Potassium 3.3 L Chloride 103 Carbon Dioxide 34 H Anion Gap 9 BUN 52 H Creatinine 1.35 H Est GFR ( Amer) 47 L Est GFR (Non-Af Amer) 38 L Glucose 91 Calcium 9.0 Total Bilirubin 0.4 AST 34 ALT 40 Alkaline Phosphatase 98 Total Protein 7.1 Albumin 3.7 10/07/18 10/07/18 11:42 11:42 Creatine Kinase 36 Troponin I 0.424 NT-Pro-B Natriuret Pep 7450 H Impressions: Chest X-Ray 10/07/18 11:36 IMPRESSION: Improved aeration of the lung bases with persistent versus recurrent bibasilar airspace opacities. Assessment and Plan - Diagnosis (1) Acute respiratory failure with hypoxia and hypercapnia Is this a current diagnosis for this admission?: Yes Plan: Due to COPD exacerbation/community-acquired pneumonia. 10/07/2018: SBP 183/97, T-max 98, pulse 109, RR 1029, FiO2 86-94% on 4 L NC. WBC 13.5, no bandemia, hemoglobin 13.7, platelets 290 CXR Persistent recurrent bibasilar airspace opacities. EKG sinus tachycardia. Empiric IV antibiotics, duo nebs, BiPAP, IV steroids, pulmonary toileting, telemetry. Sputum and blood culture. (2) Hypertensive urgency Is this a current diagnosis for this admission?: Yes Plan: AI and elevated troponins. SBP 183/97, T-max 98, pulse 109, RR 1029, FiO2 86-94% on 4 L NC. Start home meds. Adjust meds as needed. PRN IV hydralazine SBP > 150. (3) Elevated troponin Is this a current diagnosis for this admission?: Yes Plan: Denies any anginal symptoms. Likely due to demand mismatch in setting of AI. Admit to tele. Start on aspirin, statins, beta-blockers, RONI. Trend troponins. We will consult cardiology. (4) CHF exacerbation Qualifiers: Heart failure type: diastolic Qualified Code(s): I50.33 - Acute on chronic diastolic (congestive) heart failure Is this a current diagnosis for this admission?: No Plan: Likely due to COPD exacerbation/pneumonia. BNP 7450 up from 1400 on 08/29/2018. 01/30/2017. 2D echo. Left ventricular hypertrophy. Grade 2/4 diastolic dysfunction. Left ventricular ejection fraction 60%. Diet, volume restriction, strict in and out, diuretics, beta-blockers and RONI. We will get a new echo. (5) Pneumonia Is this a current diagnosis for this admission?: Yes Plan: Likely community-acquired gram-positive including strep pneumo. Empiric IV antibiotics. Follow-up sputum and blood culture. (6) COPD exacerbation Is this a current diagnosis for this admission?: Yes Plan: As per #1. (7) Acute kidney injury superimposed on CKD Is this a current diagnosis for this admission?: Yes Plan: Nonoliguric. Likely prerenal. Creatinine 1.35 baseline 1.3 Renal ultrasound. Avoid nephrotoxic agents. Monitor volume status and electrolytes. (8) Alcohol use disorder Is this a current diagnosis for this admission?: No Plan: DT protocol (9) Chronic insomnia Is this a current diagnosis for this admission?: No Plan: Start home meds. (10) Depression Qualifiers: Is this a current diagnosis for this admission?: No Plan: Denies any suicidal homicidal or self-harm ideation. Restart home meds. (11) Diabetes mellitus, type 2 Is this a current diagnosis for this admission?: No Plan: Diabetic diet, long-acting insulin, pre-meal insulin, sliding scale insulin. Adjust insulin dosage as needed. Outpatient PCP follow-up.
[2018-10-07] MEDS ORDERED: DEXTROSE 40% GEL 15 GM TUBE PO PRN (18:19)
[2018-10-07] MEDS ORDERED: DEXTROSE 50%-WATER 25 GM/50 ML DISP.SYRIN IV PRN ×2 (18:19)
[2018-10-07] MEDS ORDERED: ASPIRIN 325 MG TABLET PO ONE (18:19)
[2018-10-07] MEDS ORDERED: GLUCAGON,HUMAN RECOMB 1 MG INJ IM PRN (18:19)
[2018-10-07] MEDS: IPRATROPIUM/ALBUTEROL 0.5-2.5 MG/3 ML AMPUL NEB SCH ×2 (19:27→23:32)
[2018-10-07] MEDS: METHYLPREDNISOLONE INJ 40 MG/1 ML SDV IV SCH (22:12)
[2018-10-07] MEDS: INSULIN LISPRO 100 UNIT/ML 3 ML VIAL SUBCUT SCH (22:12)
[2018-10-07] MEDS: THIAMINE HCL 100 MG, FOLIC ACID 1 MG in NORMAL SALINE 250 ML IV SCH (22:12)
[2018-10-07] MEDS: FAMOTIDINE 20 MG TABLET PO SCH (22:13)
[2018-10-07] MEDS: INSULIN GLARGINE,HUM.REC.ANLOG 1,000 UNIT/10 ML VIAL SUBCUT SCH (22:13)
[2018-10-07] MEDS: VENLAFAXINE HCL 75 MG CAP.SR.24H PO SCH (22:14)
[2018-10-07] MEDS: ATORVASTATIN CALCIUM 40 MG TABLET PO SCH (22:14)
[2018-10-07] MEDS ORDERED: PRAMIPEXOLE DI-HCL 0.5 MG TABLET ONE (22:41)
[2018-10-07] MEDS: PRAMIPEXOLE DI-HCL 0.5 MG TABLET PO SCH (23:24)
[2018-10-08] MEDS: IPRATROPIUM/ALBUTEROL 0.5-2.5 MG/3 ML AMPUL NEB SCH ×4 (03:43→16:28)
[2018-10-08 04:57] LABS: ABSOLUTE LYMPHOCYTES (AUTO) 0.6 10^3/uL (0.5-4.7); ABSOLUTE MONOCYTES (AUTO) 0.1 10^3/uL (0.1-1.4); ABSOLUTE NEUT (AUTO) 7.4 10^3/uL (1.7-8.2); BASOPHILS % (AUTO) 0.1 % (0-2); HEMATOCRIT 37.7 % (36.0-47.0); HEMOGLOBIN 11.7 g/dL (12.0-15.5); LYMPHOCYTES % (AUTO) 7.6 % (13-45); MEAN CORPUSCULAR HEMOGLOBIN 26.1 pg (27.0-33.4); MEAN CORPUSCULAR VOLUME 84 fl (80-97); MONOCYTES % (AUTO) 1.5 % (3-13); PLATELET COUNT 213 10^3/uL (150-450); RED BLOOD COUNT 4.47 10^6/uL (3.72-5.28); RED CELL DISTRIBUTION WIDTH 21.4 % (11.5-14.0); SEGMENTED NEUTROPHILS % (AUTO) 90.8 % (42-78); TOTAL CELLS COUNTED % (AUTO) 100 %; WHITE BLOOD COUNT 8.2 10^3/uL (4.0-10.5)
[2018-10-08] MEDS: METHYLPREDNISOLONE INJ 40 MG/1 ML SDV IV SCH ×3 (05:12→22:36)
[2018-10-08 05:21] LABS: ANION GAP 12 (5-19); BLOOD UREA NITROGEN 68 mg/dL (7-20); CALCIUM 8.2 mg/dL (8.4-10.2); CARBON DIOXIDE 25 mmol/L (22-30); CHLORIDE 102 mmol/L (98-107); POTASSIUM 4.2 mmol/L (3.6-5.0); SODIUM 139.4 mmol/L (137-145)
[2018-10-08 05:33] LABS: GLUCOSE 516 mg/dL (75-110)
[2018-10-08] MEDS ORDERED: INSULIN LISPRO 100 UNIT/ML 3 ML VIAL SUBCUT ONE ×2 (07:00→08:45)
[2018-10-08] MEDS: INSULIN GLARGINE,HUM.REC.ANLOG 1,000 UNIT/10 ML VIAL SUBCUT SCH ×2 (08:48→22:37)
[2018-10-08] MEDS: INSULIN LISPRO 100 UNIT/ML 3 ML VIAL SUBCUT SCH ×4 (08:52→22:38)
[2018-10-08] MEDS ORDERED: PRAMIPEXOLE DI-HCL 0.5 MG TABLET PO SCH (10:00)
[2018-10-08] MEDS ORDERED: CEFTRIAXONE 1 GM/D5W RTU 1 GM/50 ML RTUPB IV SCH (10:00)
[2018-10-08] MEDS ORDERED: CEFTRIAXONE SODIUM 1,000 MG in DEXTROSE 5%-WATER 50 ML IV SCH (10:00)
[2018-10-08] MEDS: FAMOTIDINE 20 MG TABLET PO SCH ×2 (10:57→22:37)
[2018-10-08] MEDS: FUROSEMIDE 20 MG TABLET PO SCH ×2 (10:57→17:54)
[2018-10-08] MEDS: ENOXAPARIN SODIUM INJ 40 MG/0.4 ML DISP.SYRIN SUBCUT SCH (10:57)
[2018-10-08] MEDS: FERROUS SULFATE 325 MG TABLET PO SCH (10:57)
[2018-10-08] MEDS: VENLAFAXINE HCL 75 MG CAP.SR.24H PO SCH (10:57)
[2018-10-08] MEDS: DOCUSATE SODIUM 100 MG CAPSULE PO SCH (10:57)
--- NOTE | 2018-10-08 15:15 | EKG REPORT ---
SEVERITY:- ABNORMAL ECG - SINUS TACHYCARDIA VENTRICULAR BIGEMINY LOW VOLTAGE IN FRONTAL LEADS BORDERLINE INFERIOR Q WAVES BORDERLINE R WAVE PROGRESSION, ANTERIOR LEADS : Confirmed by: Isma Cohen MD 08-Oct-2018 15:13:49
--- NOTE | 2018-10-08 16:23 | PDOC CONSULTATION ---
Consultation-Blank Consultation: CARDIOLOGY CONSULTATION by Dr. Barbi Zurita on 10/08/2018. Patient seen at 11 AM on 10/08/2018. REASON FOR CONSULTATION: Patient without any chest pain or acute EKG changes with elevated troponin levels. CONSULT REQUESTING PHYSICIAN: Dr. Andres hospitalist physician. HISTORY PHYSICAL ILLNESS: Patient is a 72-year-old female with known history of COPD, who continues to smoke, and is not on home oxygen states since the past few days has been having history of worsening shortness of breath on exertion with rest shortness of breath with wheezing. She also complains of cough productive of yellowish-green sputum. She denies any chest pain or discomfort. She denies any palpitations. There is no PND. She has chronic orthopnea. She has chronic leg edema, with now only mild edema with no increase in the edema. The patient in spite of her not having any chest pain and no acute EKG changes her troponin I came elevated at 0.424 and is now trending down. Past Medical History Cardiac Medical History: Reports: Hyperlipidema, Hypertension, Peripheral Vascular Disease Denies: Atrial Fibrillation, Congestive Heart Failure, Pulmonary Embolism Pulmonary Medical History: Reports: Asthma, Bronchitis, Chronic Obstructive P ulmonary Disease (COPD) Endocrine Medical History: Reports: Diabetes Mellitus Type 1, Diabetes Mellitus Type 2 Psychiatric Medical History: Reports: Depression. She has a history of alcohol abuse. Hematology: Denies: Bleeding Tendencies SKIN: She has a history of psoriasis. MATERIAL ENGINEER: History of migraines present. No history of TIA or CVA. She also has recurrent falls without syncope. Past Surgical History Past Surgical History: Reports: Adenoidectomy, Orthopedic Surgery - Patient has had both left and right hip fracture repairs secondary to falls, Tonsillectomy, Other - Cataract, left great toe amputation Social History Smoking Status: Current Every Day Smoker Frequency of Alcohol Use: Heavy Hx Recreational Drug Use: No Drugs: None Hx Prescription Drug Abuse: No Family History Family History: Reviewed & Not Pertinent, CAD, Malignancy, Other Parental Family History Reviewed: Yes Children Family History Reviewed: Yes Sibling(s) Family History Reviewed.: Yes RESUSCITATION STATUS: The patient is a full code. Her friend Mr. Joseph is her surrogate healthcare decision maker, as she does not have any relatives. REVIEW SYSTEMS: CONSTITUTIONAL: Denies any fever chills or rigors, but complains of generalized fatigue and weakness. HEAD: Denies headaches recently although she has a history of migraines. No history history of dizziness present. EYES: No history of amblyopia diplopia. EARS: No history of hearing loss no history of recurrent ear infections. NOSE: No history of nosebleeds. No history of hayfever. MOUTH: No history of altered taste sensation. No ulcers in the mouth. THROAT throat: No history of odynophagia or dysphagia. SKIN: History of psoriasis present. No history of yellowish discoloration of the skin. No history of pruritus. NECK: No history of neck swelling. No history of neck pain. LUNGS: History of COPD present the patient continues to smoke. Patient admitted with acute exacerbation of COPD she has productive cough of yellowish sputum suggestive of bronchitis. There is no hemoptysis. There is no history of sleep apnea. The patient continues to smoke. CARDIAC: History of hypertension present. History of hyperlipidemia present. No history of coronary artery disease or GA or anginal symptoms. No history of syncope although she has had recurrent frequent falls. History of chronic leg edema. Seems to be related to venous insufficiency rather than heart failure. She has no history of heart failure. ENDOCRINE: History of diabetes mellitus present. No history of polydipsia polyuria. The patient's hemoglobin A1c is very high at 9.3. There is no history of heat or cold intolerance. No history of thyroid disease. RENAL: The patient does have a history of chronic kidney disease. At least in May admission her chronic kidney disease was stage III. At present he does become a stage IV. There is no symptoms a UTI. No history of hematuria pyuria or dysuria. MATERIAL ENGINEER: No history of TIA CVA. History of migraines present. No recent headaches. No history of seizures. PSYCHIATRIC: History of alcohol dependency present history of depression present. No suicidal ideation. VASCULAR: Does have a history of peripheral vascular disease, but does not ambulate much due to his COPD, and hence does not have any symptoms of calf claudication. There is no history of DVT. HEMATOLOGICAL: No history of anemia no history of hematological malignancies. No history of blood dyscrasias. No history of clotting disorders. Physical EXAMINATION: The patient appears to be chronically ill and malnourished. She is in mild respiratory distress. Selected Entries 10/08/18 11:01 Temperature 97.9 F Temperature Oral Source Pulse Rate 117 H Respiratory 18 Rate Blood Pressure 145/72 H Blood Pressure 96 Mean BP Location Left Arm BP Position Supine O2 Sat by Pulse 98 Oximetry Oxygen Flow 4.00 Rate Oxygen Delivery Nasal Cannula Method HEAD: Is atraumatic and normocephalic. EYES: Pupils are equal round regular reactive to light accommodation. Extraocular movements are normal. There is no conjunctival pallor there is no scleral icterus EARS: Tympanic memories are intact. External auditory canals are clear. NOSE: There is no deviated nasal septum. There is no inflammation of the nasal mucous membrane. MOUTH: Mucous mornings of mouth and tongue are moist. There is no ulcers in the mouth. There is no bleeding of the gums. THROAT: There is no redness of the oropharynx. There is no exudates. NECK: Is supple there is no JVD. Carotids are equal there is no bruit. There is no lymphadenopathy. There is no goiter. There is no accessory muscle respiration use. Trachea central. LUNGS: There is diminished air entry and prolonged expiration. There are scattered rhonchi and wheezing present. There is no rales of CHF. On percussion there is hyperresonance throughout. HEART: S1-S2 is heard. There is no S3 gallop. There is no S4 gallop. There is systolic murmur left sternal border and the apex there is no rub ABDOMEN: Is soft. Nontender. Mildly distended bowel sounds well heard. There is no tender areas masses. EXTREMITIES: Femorals are diminished. There is no femoral bruits. Leg pulses are diminished. There is trace to mild pedal edema. With venous stasis dermatitis. There is no signs of DVT or cellulitis. There is no calf tenderness. There is no cyanosis or clubb ing. Capillary refill is normal. There is dressing over the right toe which has been recently amputated. MATERIAL ENGINEER: The patient is conscious awake alert oriented x3 with no focal deficits. PSYCHIATRIC: The patient's affect is flat. She seems slightly withdrawn. But the patient does not appear to be agitated or depressed. In spite of this her judgment and insight are intact. EKG done yesterday shows sinus tachycardia. PVCs. Poor R wave progression precordial leads. The patient's second EKG done today is not changed and there is no acute ischemia or injury seen. Current Medications Generic Name Dose Route Start Last Admin Trade Name Freq PRN Reason Stop Dose Admin Acetaminophen 650 mg 10/07/18 17:37 Tylenol 325 Mg Tablet PO 11/06/18 17:36 Q4HP PRN FOR PAIN SCALE 1-2 Al Hydrox/Mg Hydrox/Simethicone 15 ml 10/07/18 17:37 Maalox Plus Susp 30 Udcup PO 11/06/18 17:36 Q6HP PRN HEARTBURN Albuterol/Ipratropium 3 ml 10/07/18 20:00 10/08/18 16:28 Duoneb 3 Ml Ampul NEB 11/06/18 19:59 3 ml RTQ4 RIMMA Administration Atorvastatin Calcium 40 mg 10/07/18 22:00 10/07/18 22:14 Lipitor 40 Mg Tablet PO 11/06/18 21:59 40 mg QHS RIMMA Administration Dextrose 12.5 gm 10/07/18 18:19 Dextrose Inj 50% Syringe (25 Gm/50 Ml) IV 11/06/18 18:18 PRN PRN FOR BG 50-69 IN ALERT PATIENT Protocol Dextrose 25 gm 10/07/18 18:19 Dextrose Inj 50% Syringe (25 Gm/50 Ml) IV 11/06/18 18:18 PRN PRN PER PROTOCOL Protocol Docusate Sodium 100 mg 10/08/18 10:00 10/08/18 10:57 Colace 100 Mg Capsule PO 11/07/18 09:59 100 mg DAILY RIMMA Administration Enoxaparin Sodium 40 mg 10/08/18 10:00 10/08/18 10:57 Lovenox Inj 40 Mg/0.4 Ml Disp.Syrin SUBCUT 11/07/18 09:59 40 mg DAILY RIMMA Administration Famotidine 20 mg 10/07/18 22:00 10/08/18 10:57 Pepcid 20 Mg Tablet PO 11/06/18 21:59 20 mg Q12 RIMMA Administration Ferrous Sulfate 325 mg 10/08/18 10:00 10/08/18 10:57 Feosol 325 Mg Tablet PO 11/07/18 09:59 325 mg DAILY RIMMA Administration Furosemide 20 mg 10/08/18 10:00 10/08/18 10:57 Lasix 20 Mg Tablet PO 11/07/18 09:59 20 mg BID RIMMA Administration Glucagon 1 mg 10/07/18 18:19 Glucagen Inj 1 Mg Vial IM 11/06/18 18:18 PRN PRN Evaluate for BG < 70 Protocol Glucose 15 gm 10/07/18 18:19 Glutose 40% Gel 15 Gm Tube PO 11/06/18 18:18 PRN PRN FOR BG 50-69 IN ALERT PATIENT Protocol Glucose 30 gm 10/07/18 18:19 Glutose 40% Gel 15 Gm Tube PO 11/06/18 18:18 PRN PRN FOR BG < 50 IN ALERT PATIENT Protocol Thiamine HCl 100 mg/ Folic 251.2 mls @ 502.4 mls/hr 10/07/18 22:00 10/08/18 02:01 Acid 1 mg/ Sodium Chloride IV 11/06/18 21:59 Infused QHS RIMMA Infusion Ceftriaxone Sodium 1,000 mg/ 50 mls @ 100 mls/hr 10/08/18 10:00 10/08/18 10:57 Dextrose IV 10/15/18 09:59 100 mls/hr DAILY RIMMA 100 mls/hr Administration Insulin Glargine 25 unit 10/07/18 22:00 10/08/18 08:48 Lantus Insulin 100 Unit/1 Ml 10 Ml SUBCUT 11/06/18 21:59 25 unit Q12 RIMMA Administration Insulin Human Lispro 0 - 12 unit 10/07/18 22:00 10/08/18 12:24 Humalog Insulin 100 Unit/1 Ml 3 Ml Vial SUBCUT 11/06/18 21:59 10 unit ACHS RIMMA Administration Protocol Methylprednisolone Sodium Succinate 60 mg 10/07/18 22:00 10/08/18 05:12 Solu-Medrol Inj/Pf 40 Mg/1 Ml Sdv IV 11/06/18 21:59 60 mg Q8 RIMMA Administration Ondansetron HCl 4 mg 10/07/18 17:37 Zofran Odt 4 Mg Tablet PO 11/06/18 17:36 Q4HP PRN FOR NAUSEA/VOMITING Oxycodone/Acetaminophen 1 tab 10/07/18 17:37 Percocet 5-325 Mg Tablet PO 10/14/18 17:36 Q4HP PRN FOR PAIN SCALE 1-3 Pramipexole Dihydrochloride 0.5 mg 10/07/18 22:00 10/07/18 23:24 Mirapex 0.5 Mg Tablet PO 11/06/18 21:59 0.5 mg QHS RIMMA Administration Promethazine HCl 6.25 mg 10/07/18 17:37 Phenergan Inj 25 Mg/1 Ml Vial IV 11/06/18 17:36 Q4HP PRN FOR NAUSEA/VOMITING Venlafaxine HCl 150 mg 10/07/18 19:00 10/08/18 10:57 Effexor Xr 75 Mg Cap.Sr PO 11/06/18 18:59 150 mg DAILY RIMMA Administration Discontinued Medications Generic Name Dose Route Start Last Admin Trade Name Julian PRN Reason Stop Dose Admin Albuterol 2.5 mg 10/07/18 11:51 10/07/18 13:07 Ventolin 0.083% Neb 2.5 Mg/3 Ml Ampul NEB 10/07/18 12:07 2.5 mg Q15M RIMMA Administration Albuterol/Ipratropium 3 ml 10/07/18 11:36 10/07/18 12:07 Duoneb 3 Ml Ampul NEB 10/07/18 11:37 3 ml NOW ONE Administration Albuterol/Ipratropium 3 ml 10/07/18 16:08 10/07/18 16:46 Duoneb 3 Ml Ampul NEB 10/07/18 16:09 3 ml NOW ONE Administration Aspirin 325 mg 10/07/18 18:19 10/07/18 18:59 Aspirin 325 Mg Tablet PO 10/07/18 18:20 325 mg NOW ONE Administration Ceftriaxone Sodium/Dextrose 1 gm in 50 mls @ 100 mls/hr 10/07/18 16:08 10/07/18 17:16 Rocephin Rtu 1 Gm/D5w 50 Ml Premix IV 10/07/18 16:37 Infused NOW ONE Infusion Insulin Human Lispro 20 unit 10/08/18 07:00 10/08/18 06:59 Humalog Insulin 100 Unit/1 Ml 3 Ml Vial SUBCUT 10/08/18 07:01 20 unit ONCE ONE Administration Protocol Insulin Human Lispro 20 unit 10/08/18 08:45 10/08/18 08:48 Humalog Insulin 100 Unit/1 Ml 3 Ml Vial SUBCUT 10/08/18 08:46 20 unit NOW ONE Administration Methylprednisolone Sodium Succinate 125 mg 10/07/18 11:36 10/07/18 12:07 Solu-Medrol Inj/Pf 125 Mg/2 Ml Sdv IV 10/07/18 11:37 125 mg NOW ONE Administration Pramipexole Dihydrochloride 0.5 mg 10/08/18 10:00 Mirapex 0.5 Mg Tablet PO 11/07/18 09:59 DAILY RIMMA Pramipexole Dihydrochloride Confirm 10/07/18 22:41 10/07/18 23:25 Mirapex 0.5 Mg Tablet Administered 10/07/18 22:42 Not Given Dose 0.5 mg .ROUTE .STK-MED ONE HOME MEDICATIONS: Atorvastatin Calcium [Lipitor 10 mg Tablet] 10 mg PO QPM 10/08/18 Cholecalciferol (Vitamin D3) [Vitamin D3 5000 unit Capsule] 5,000 unit PO DAILY 10/08/18 Diltiazem HCl [Cardizem Cd 240 mg Capsule.cr] 240 mg PO DAILY 10/08/18 Insulin Glargine,Hum.rec.anlog [Lantus Insulin 100 Unit/1 ml 10 ml] 40 unit SUBCUT BID 10/08/18 Pregabalin [Lyrica 100 Mg Capsule] 100 mg PO QHS 10/08/18 Labs- Entire Visit 10/07/18 10/07/18 10/07/18 11:42 11:42 11:42 WBC 13.5 H RBC 5.22 Hgb 13.7 Hct 43.3 MCV 83 MCH 26.2 L MCHC 31.6 L RDW 21.6 H Plt Count 290 Seg Neutrophils % 86.5 H Lymphocytes % 8.3 L Monocytes % 4.6 Eosinophils % 0.2 Basophils % 0.4 Absolute Neutrophils 11.7 H Absolute Lymphocytes 1.1 Absolute Monocytes 0.6 Absolute Eosinophils 0.0 Absolute Basophils 0.1 Sodium 146.3 H Potassium 3.3 L Chloride 103 Carbon Dioxide 34 H Anion Gap 9 BUN 52 H Creatinine 1.35 H Est GFR ( Amer) 47 L Est GFR (Non-Af Amer) 38 L Glucose 91 POC Glucose Hemoglobin A1c % Calcium 9.0 Magnesium Total Bilirubin 0.4 Direct Bilirubin 0.4 Neonat Total Bilirubin Not Reportable Neonat Direct Bilirubin Not Reportable Neonat Indirect Bili Not Reportable AST 34 ALT 40 Alkaline Phosphatase 98 Creatine Kinase 36 Troponin I 0.424 NT-Pro-B Natriuret Pep 7450 H Total Protein 7.1 Albumin 3.7 10/07/18 10/08/18 10/08/18 18:45 04:47 04:47 WBC 8.2 RBC 4.47 Hgb 11.7 L Hct 37.7 MCV 84 MCH 26.1 L MCHC 31.0 L RDW 21.4 H Plt Count 213 Seg Neutrophils % 90.8 H Lymphocytes % 7.6 L Monocytes % 1.5 L Eosinophils % 0.0 Basophils % 0.1 Absolute Neutrophils 7.4 Absolute Lymphocytes 0.6 Absolute Monocytes 0.1 Absolute Eosinophils 0.0 Absolute Basophils 0.0 Sodium 139.4 Potassium 4.2 Chloride 102 Carbon Dioxide 25 Anion Gap 12 BUN 68 H Creatinine 1.81 H Est GFR ( Amer) 33 L Est GFR (Non-Af Amer) 27 L Glucose 516 H* POC Glucose Hemoglobin A1c % Calcium 8.2 L Magnesium 2.2 Total Bilirubin Direct Bilirubin Neonat Total Bilirubin Neonat Direct Bilirubin Neonat Indirect Bili AST ALT Alkaline Phosphatase Creatine Kinase Troponin I 0.302 NT-Pro-B Natriuret Pep Total Protein Albumin 10/08/18 10/08/18 10/08/18 04:47 05:29 08:28 WBC RBC Hgb Hct MCV MCH MCHC RDW Plt Count Seg Neutrophils % Lymphocytes % Monocytes % Eosinophils % Basophils % Absolute Neutrophils Absolute Lymphocytes Absolute Monocytes Absolute Eosinophils Absolute Basophils Sodium Potassium Chloride Carbon Dioxide Anion Gap BUN Creatinine Est GFR ( Amer) Est GFR (Non-Af Amer) Glucose POC Glucose 473 H* 517 H* Hemoglobin A1c % 9.3 H Calcium Magnesium Total Bilirubin Direct Bilirubin Neonat Total Bilirubin Neonat Direct Bilirubin Neonat Indirect Bili AST ALT Alkaline Phosphatase Creatine Kinase Troponin I NT-Pro-B Natriuret Pep Total Protein Albumin 10/08/18 10/08/18 10/08/18 11:03 11:29 14:59 WBC RBC Hgb Hct MCV MCH MCHC RDW Plt Count Seg Neutrophils % Lymphocytes % Monocytes % Eosinophils % Basophils % Absolute Neutrophils Absolute Lymphocytes Absolute Monocytes Absolute Eosinophils Absolute Basophils Sodium Potassium Chloride Carbon Dioxide Anion Gap BUN Creatinine Est GFR ( Amer) Est GFR (Non-Af Amer) Glucose POC Glucose 348 H 227 H Hemoglobin A1c % Calcium Magnesium Total Bilirubin Direct Bilirubin Neonat Total Bilirubin Neonat Direct Bilirubin Neonat Indirect Bili AST ALT Alkaline Phosphatase Creatine Kinase Troponin I 0.143 NT-Pro-B Natriuret Pep Total Protein Albumin Chest X-Ray 10/07/18 11:36 IMPRESSION: Improved aeration of the lung bases with persistent versus recurrent bibasilar airspace opacities. IMPRESSION/RECOMMENDATION: 1. Elevated troponin level: There is no evidence of non-ST elevation GA. This is not a non-ST elevation GA. It is a type II GA secondary to supply demand mismatch, in view of the fact that the patient has acute exacerbation of COPD, pneumonia, and acute on chronic renal failure. Hence we will treat the underlying cause, and not treat this as a non-ST relation GA. 2.Acute on chronic respiratory failure: Continue oxygen, continue respiratory treatments and continue antibiotics. 3.Acute exacerbation of COPD. Continue current treatment regimen. 4. Bibasilar pneumonia: Continue antibiotics 5. Acute on chronic kidney disease. At present chronic kidney disease stage IV. Avoid nephrotoxic drugs 6. Hypertension: Continue current antihypertensives as blood pressure is well controlled. 7. Diabetes mellitus type 2 with chronic kidney disease. Possibly has neuropathy continue antidiabetic medications and periodic Accu-Cheks. 8. Peripheral vascular disease: The importance of smoking cessation discussed with the patient 9. DEPRESSION: Consider antidepressants. 10. History of alcohol abuse: Ill effects of alcohol discussed with the patient. Alcohol cessation counseling done. 11. History of tobacco abuse: Tobacco cessation counseling given. Ill effects of tobacco discussed with patient detail various modalities of tobacco cessation regimens discussed with the patient. 5 minutes spent on this patient. 12. The patient also has no symptoms of angina, she has high probability of underlying coronary artery disease in view of the patient's multiple CAD risk factors. Hence later when the patient is back to baseline would recommend that the patient have an outpatient IV Lexiscan Cardiolite stress test. 13. Status post right great toe amputation. 14. History of psoriasis. Occasions reviewed. Management plan discussed with attending physician on the case. At present cardiac would not change her medication or management plan. Note the troponin is trending down. Medical decision making is a mo derate to high complexity. 60 minutes spent on this patient more than 50% of time spent in direct patient care. In spite of the multiple medical problems, I feel that the cardiac status is stable. Please call me if any acute cardiac problem to do arise. Hence will sign off assessment been discussed with attending physician on the case if the patient so desires she can follow-up with me, as an outpatient. This has been discussed with the patient
[2018-10-08] MEDS ORDERED: IPRATROPIUM/ALBUTEROL 0.5-2.5 MG/3 ML AMPUL NEB PRN (17:37)
[2018-10-08] MEDS ORDERED: NYSTATIN TOPICAL POWDER 15 GM TP ONE (19:00)
[2018-10-08] MEDS: LEVALBUTEROL HCL NEB 1.25 MG/3 ML AMPUL NEB SCH ×2 (19:53→23:58)
[2018-10-08] MEDS: THIAMINE HCL 100 MG, FOLIC ACID 1 MG in NORMAL SALINE 250 ML IV SCH (22:36)
[2018-10-08] MEDS: ATORVASTATIN CALCIUM 40 MG TABLET PO SCH (22:37)
[2018-10-08] MEDS: PRAMIPEXOLE DI-HCL 0.5 MG TABLET PO SCH (22:37)
--- NOTE | 2018-10-08 23:03 | PDOC PROGRESS REPORT ---
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 [facility] and [facility]. She was admitted to the hospitalist service for a COPD exacerbation and healthcare associated PNA. The patient was initially placed ceftriaxone on for antibiotic coverage. The patient was seen this afternoon on rounds, she is resting in bed on supplemental oxygen via nasal cannula. She is alert and oriented x3, able to answer all questions appropriately but frequently pauses in between sentences to catch her breath. Upon exam, wheezing can be auscultated in all lung garrison. There is no evidence of central or peripheral cyanosis. Pulses are palpable in the upper and lower extremities. There is no evidence of peripheral edema. Abd omen appears rounded and distended. It is soft and nontender. She has positive bowel sounds. She is able to tolerate her diet. The patient expresses her desire to be made DNR. She states "it would not be the worst thing if I croaked. I know it is going to happen eventually and it is part of God's plan" She expressed wishes to meet with the palliative care insurance claims representative. Plan to increase frequency of patient's nebulizer treatments and broaden her antibiotic coverage to vancomycin and Zosyn for coverage of healthcare associated PNA. Additionally, will consults ALVERTO Davison from [facility]. Reason For Visit: COPD EXACERBATION,ACUTE RESPIRATORY FAILURE WITH Physical Exam Vital Signs: Temp Pulse Resp BP Pulse Ox 97.7 F 110 H 18 131/50 H 95 10/08/18 16:00 10/08/18 16:30 10/08/18 16:30 10/08/18 16:00 10/08/18 16:30 Intake & Output 10/07/18 10/08/18 10/09/18 06:59 06:59 06:59 Intake Total 801.2 480 Output Total 500 Balance 301.2 480 Weight 59.2 kg General appearance: PRESENT: disheveled, well-developed, well-nourished Head exam: PRESENT: atraumatic, normocephalic Eye exam: PRESENT: conjunctiva pink, EOMI, PERRLA. ABSENT: scleral icterus Ear exam: PRESENT: normal external ear exam Mouth exam: PRESENT: moist, tongue midline Neck exam: ABSENT: carotid bruit, JVD, lymphadenopathy, thyromegaly Respiratory exam: PRESENT: clear to auscultation lauren, symmetrical, unlabored. ABSENT: rales, rhonchi, wheezes Cardiovascular exam: PRESENT: RRR. ABSENT: diastolic murmur, rubs, systolic murmur Pulses: PRESENT: normal radial pulses, normal dorsalis pedis pul Vascular exam: PRESENT: normal capillary refill GI/Abdominal exam: PRESENT: normal bowel sounds, soft. ABSENT: distended, guarding, mass, organolmegaly, rebound, tenderness Rectal exam: PRESENT: deferred Extremities exam: PRESENT: full ROM. ABSENT: calf tenderness, clubbing, pedal edema Musculoskeletal exam: PRESENT: ambulatory - with assistance, full ROM. ABSENT: deformity Neurological exam: PRESENT: alert, awake, oriented to person, oriented to place, oriented to time, oriented to situation Psychiatric exam: PRESENT: appropriate affect, normal mood Skin exam: PRESENT: dry, intact, warm. ABSENT: cyanosis, rash Results Laboratory Results: 10/08/18 04:47 10/08/18 04:47 10/08/18 10/08/18 04:47 04:47 WBC 8.2 RBC 4.47 Hgb 11.7 L Hct 37.7 MCV 84 MCH 26.1 L MCHC 31.0 L RDW 21.4 H Plt Count 213 Seg Neutrophils % 90.8 H Lymphocytes % 7.6 L Monocytes % 1.5 L Eosinophils % 0.0 Basophils % 0.1 Absolute Neutrophils 7.4 Absolute Lymphocytes 0.6 Absolute Monocytes 0.1 Absolute Eosinophils 0.0 Absolute Basophils 0.0 Sodium 139.4 Potassium 4.2 Chloride 102 Carbon Dioxide 25 Anion Gap 12 BUN 68 H Creatinine 1.81 H Est GFR ( Amer) 33 L Est GFR (Non-Af Amer) 27 L Glucose 516 H* Calcium 8.2 L Magnesium 2.2 10/07/18 10/07/18 10/07/18 11:42 11:42 18:45 Creatine Kinase 36 Troponin I 0.424 0.302 NT-Pro-B Natriuret Pep 7450 H 10/08/18 11:29 Creatine Kinase Troponin I 0.143 NT-Pro-B Natriuret Pep Impressions: Chest X-Ray 10/07/18 11:36 IMPRESSION: Improved aeration of the lung bases with persistent versus recurrent bibasilar airspace opacities. Status: Imported from PACS Assessment and Plan - Diagnosis (1) Acute respiratory failure with hypoxia and hypercapnia Is this a current diagnosis for this admission?: Yes Plan: Due to COPD exacerbation healthcare associated pneumonia. CXR Persistent recurrent bibasilar airspace opacities. Antibiotic coverage with vancomycin and Zosyn duo nebs, BiPAP, IV steroids, pulmonary toileting, telemetry. Sputum and blood culture. (2) Hypertensive urgency Is this a current diagnosis for this admission?: Yes Plan: Resolved BP currently controlled AI and elevated troponins. Resume home dose cardizem PRN IV hydralazine SBP > 150. (3) CHF exacerbation Qualifiers: Heart failure type: diastolic Qualified Code(s): I50.33 - Acute on chronic diastolic (congestive) heart failure Is this a current diagnosis for this admission?: No Plan: Likely due to COPD exacerbation/pneumonia. BNP 7450 up from 1400 on 08/29/2018. 01/30/2017 2D echo shows LVH, Grade 2/4 diastolic dysfunction. LVEF 60%. Cardiac Diet Continue scheduled lasix We will get a new echo. (4) Elevated troponin Is this a current diagnosis for this admission?: Yes Plan: Denies any anginal symptoms. Likely due to demand mismatch in setting of AI. Admit to tele. Start on aspirin, statins, beta-blockers, RONI. Trend troponins. We will consult cardiology. (5) Pneumonia Qualifiers: Pneumonia type: due to unspecified organism Laterality: unspecified laterality Lung location: unspecified part of lung Qualified Code(s): J18.9 - Pneumonia, unspecified organism Is this a current diagnosis for this admission?: Yes Plan: Recent hospitalization 1 month ago Will treat her for healthcare associated PNA Switch from Rocephin to Vanc/Zosyn Blood cultures pending Will order sputum culture (6) Acute kidney injury superimposed on CKD Is this a current diagnosis for this admission?: Yes Plan: Worsening 1.35-->1.88 Patient able to make urine - nonoliguric Creatinine range in 2019 has been 0.7-1.8 Likely prerenal given her story of 24-36 hours at home on her ground prior to coming to the hospital Avoid nephrotoxic agents. Monitor volume status and electrolytes. (7) Alcohol use disorder Is this a current diagnosis for this admission?: Yes Plan: Patient endorses drinking 3-6 scotch cocktails per day Was sober for approx. 1 month Resumed ETOH once home but only for a few day once returning to the hospital (8) Depression Qualifiers: Is this a current diagnosis for this admission?: No Plan: [facility] depression Patient states "It wouldn't be the worst thing if I croaked" No SI or HI (9) Diabetes mellitus, type 2 Qualifiers: Diabetes mellitus group home insulin use: with group home use Diabetes mellitus complication status: without complication Qualified Code(s): E11.9 - Type 2 diabetes mellitus without complications; Z79.4 - penitentiary (current) use of insulin Is this a current diagnosis for this admission?: Yes Plan: [facility] ACHS Insulin sliding scale HgbA1c 9.3% Diabetic diet - Time Time Spent with patient: 15-24 minutes Medications reviewed and adjusted accordingly: Yes Anticipated discharge: SNF Within: within 72 hours - Inpatient Certification Based on my medical assessment, after consideration of the patient's comorbidities, presenting symptoms, or acuity I expect that the services needed warrant INPATIENT care.: Yes I certify that my determination is in accordance with my understanding of Medicare's requirements for reasonable and necessary INPATIENT services [42 CFR 412.3e].: Yes Medical Necessity: Need For Continuous Telemetry Monitoring, Risk of Complication if Not Cared For in Hospital
[2018-10-09] MEDS: LEVALBUTEROL HCL NEB 1.25 MG/3 ML AMPUL NEB SCH ×5 (03:48→20:10)
[2018-10-09 05:36] LABS: HEMATOCRIT 35.6 % (36.0-47.0); HEMOGLOBIN 10.9 g/dL (12.0-15.5); MEAN CORPUSCULAR HEMOGLOBIN 25.7 pg (27.0-33.4); MEAN CORPUSCULAR HGB CONC 30.7 g/dL (32.0-36.0); MEAN CORPUSCULAR VOLUME 84 fl (80-97); PLATELET COUNT 216 10^3/uL (150-450); RED BLOOD COUNT 4.26 10^6/uL (3.72-5.28); RED CELL DISTRIBUTION WIDTH 21.3 % (11.5-14.0)
[2018-10-09 05:43] LABS: WHITE BLOOD COUNT 18.8 10^3/uL (4.0-10.5)
[2018-10-09] MEDS: METHYLPREDNISOLONE INJ 40 MG/1 ML SDV IV SCH ×3 (05:52→22:30)
[2018-10-09 06:03] LABS: ABSOLUTE LYMPHOCYTES# (MANUAL) 0.2 10^3/uL (0.5-4.7); ABSOLUTE MONOCYTES # (MANUAL) 0.8 10^3/uL (0.1-1.4); ABSOLUTE NEUTROPHILS# (MANUAL) 17.9 10^3/uL (1.7-8.2); ANION GAP 13 (5-19); ANISOCYTOSIS 3+; BASOPHILS % (MANUAL) 0 % (0-2); BLOOD UREA NITROGEN 65 mg/dL (7-20); CARBON DIOXIDE 26 mmol/L (22-30); CHLORIDE 101 mmol/L (98-107); EOSINOPHILS % (MANUAL) 0 % (0-6); GLUCOSE 397 mg/dL (75-110); HYPOCHROMASIA 1+; LYMPHOCYTES % (MANUAL) 1 % (13-45); MONOCYTES % (MANUAL) 4 % (3-13); OVALOCYTES SLIGHT; PLATELET COMMENT ADEQUATE; POLYCHROMASIA SLIGHT; POTASSIUM 3.9 mmol/L (3.6-5.0); SEGMENTED NEUTROPHILS % (MAN) 95 % (42-78); SODIUM 140.1 mmol/L (137-145); TEAR DROP CELLS SLIGHT; TOTAL CELLS COUNTED 100
[2018-10-09] MEDS: INSULIN LISPRO 100 UNIT/ML 3 ML VIAL SUBCUT SCH ×4 (08:27→22:31)
[2018-10-09] MEDS ORDERED: VANCOMYCIN HCL 0 MG in DEXTROSE 5%-WATER 250 ML IV NR (09:15)
[2018-10-09] MEDS: VENLAFAXINE HCL 75 MG CAP.SR.24H PO SCH (09:18)
[2018-10-09] MEDS: FERROUS SULFATE 325 MG TABLET PO SCH (09:19)
[2018-10-09] MEDS: DOCUSATE SODIUM 100 MG CAPSULE PO SCH (09:19)
[2018-10-09] MEDS: FAMOTIDINE 20 MG TABLET PO SCH ×2 (09:19→22:32)
[2018-10-09] MEDS: FUROSEMIDE 20 MG TABLET PO SCH ×2 (09:19→17:28)
[2018-10-09] MEDS: INSULIN GLARGINE,HUM.REC.ANLOG 1,000 UNIT/10 ML VIAL SUBCUT SCH ×2 (09:20→22:31)
[2018-10-09] MEDS: ENOXAPARIN SODIUM INJ 40 MG/0.4 ML DISP.SYRIN SUBCUT SCH (09:20)
[2018-10-09] MEDS: NYSTATIN TOPICAL POWDER 15 GM TP SCH ×2 (09:24→17:29)
[2018-10-09] MEDS ORDERED: CEFEPIME 2 GM/D5W RTU 2 GM/50 ML RTUPB IV SCH (10:00)
[2018-10-09] MEDS: CEFEPIME HCL 2 GM in DEXTROSE 5%-WATER 50 ML IV SCH ×2 (13:01→22:31)
[2018-10-09] MEDS: VANCOMYCIN HCL 750 MG in DEXTROSE 5%-WATER 250 ML IV SCH (14:23)
--- NOTE | 2018-10-09 15:33 | PDOC PROGRESS REPORT ---
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 She presented to [facility] for weakness and difficulty breathing. She was admitted to the hospitalist service for a COPD exacerbation and healthcare associated PNA. The patient was initially placed ceftriaxone on for antibiotic coverage, expanded to vancomycin and cefepime for healthcare associated PNA. The patient was seen this afternoon on rounds, she is resting in bed on supplemental oxygen via nasal cannula. She is alert and oriented x3, able to answer all questions appropriately but frequently pauses in between sentences to catch her breath. Upon exam, wheezing can be auscultated in LLL lung field, it is significantly improved when compared to yesterday. There is no evidence of central or peripheral cyanosis. Pulses are palpable in the upper and lower extremities. There is no evidence of peripheral edema. Continue nebulizers, steroids and antibiotics. Patient is not appropriate for discharge at this time. Will discuss long-term placement with discharge planning. Reason For Visit: COPD EXACERBATION,ACUTE RESPIRATORY FAILURE WITH Physical Exam Vital Signs: Temp Pulse Resp BP Pulse Ox 97.8 F 105 H 20 172/95 H 94 10/09/18 10:59 10/09/18 11:58 10/09/18 11:58 10/09/18 10:59 10/09/18 10:59 Intake & Output 10/08/18 10/09/18 10/10/18 06:59 06:59 06:59 Intake Total 801.2 1281.2 194 Output Total 500 300 Balance 301.2 981.2 194 Weight 59.2 kg 54.9 kg General appearance: PRESENT: disheveled, well-developed, well-nourished Head exam: PRESENT: atraumatic, normocephalic Eye exam: PRESENT: conjunctiva pink, EOMI, PERRLA. ABSENT: scleral icterus Ear exam: PRESENT: normal external ear exam Mouth exam: PRESENT: moist, tongue midline Teeth exam: PRESENT: poor dentation Neck exam: ABSENT: carotid bruit, JVD, lymphadenopathy, thyromegaly Respiratory exam: PRESENT: symmetrical, unlabored, wheezes - LLL. ABSENT: rales, rhonchi Cardiovascular exam: PRESENT: RRR. ABSENT: diastolic murmur, rubs, systolic murmur Pulses: PRESENT: normal radial pulses, normal dorsalis pedis pul Vascular exam: PRESENT: normal capillary refill GI/Abdominal exam: PRESENT: normal bowel sounds, soft. ABSENT: distended, guarding, mass, organolmegaly, rebound, tenderness Rectal exam: PRESENT: deferred Extremities exam: PRESENT: full ROM. ABSENT: calf tenderness, clubbing, pedal edema Musculoskeletal exam: PRESENT: full ROM. ABSENT: ambulatory - Patient reports she can normally only walk approximately 5 to 10 feet., deformity Neurological exam: PRESENT: alert, awake, oriented to person, oriented to place, oriented to time, oriented to situation Psychiatric exam: PRESENT: appropriate affect, normal mood. ABSENT: homicidal ideation, suicidal ideation Skin exam: PRESENT: dry, intact, normal color, warm. ABSENT: cyanosis, rash Results Laboratory Results: 10/09/18 04:56 10/09/18 04:56 10/09/18 10/09/18 04:56 04:56 WBC 18.8 H D RBC 4.26 Hgb 10.9 L Hct 35.6 L MCV 84 MCH 25.7 L MCHC 30.7 L RDW 21.3 H Plt Count 216 Seg Neutrophils % Not Reportable Lymphocytes % Not Reportable Monocytes % Not Reportable Eosinophils % Not Reportable Basophils % Not Reportable Absolute Neutrophils Not Reportable Absolute Lymphocytes Not Reportable Absolute Monocytes Not Reportable Absolute Eosinophils Not Reportable Absolute Basophils Not Reportable Sodium 140.1 Potassium 3.9 Chloride 101 Carbon Dioxide 26 Anion Gap 13 BUN 65 H Creatinine 1.75 H Est GFR ( Amer) 34 L Est GFR (Non-Af Amer) 28 L Glucose 397 H Calcium 8.0 L Magnesium 2.1 10/07/18 10/07/18 10/07/18 11:42 11:42 18:45 Creatine Kinase 36 Troponin I 0.424 0.302 NT-Pro-B Natriuret Pep 7450 H 10/08/18 11:29 Creatine Kinase Troponin I 0.143 NT-Pro-B Natriuret Pep Impressions: Chest X-Ray 10/07/18 11:36 IMPRESSION: Improved aeration of the lung bases with persistent versus recurrent bibasilar airspace opacities. Status: Imported from PACS Assessment and Plan - Diagnosis (1) Acute respiratory failure with hypoxia and hypercapnia Is this a current diagnosis for this admission?: Yes Plan: Due to COPD exacerbation healthcare associated pneumonia. CXR Persistent recurrent bibasilar airspace opacities. Antibiotic coverage with vancomycin and cefepime Duo nebs, BiPAP as needed, IV steroids, pulmonary toileting Cultures pending Sputum cultures not yet collected (2) Hypertensive urgency Is this a current diagnosis for this admission?: Yes Plan: Resolved BP currently controlled AI and elevated troponins. Resume home dose cardizem PRN IV hydralazine SBP > 150. (3) CHF exacerbation Qualifiers: Heart failure type: diastolic Qualified Code(s): I50.33 - Acute on chronic diastolic (congestive) heart failure Is this a current diagnosis for this admission?: No Plan: Likely due to COPD exacerbation/pneumonia. BNP 7450 up from 1400 on 08/29/2018. 01/30/2017 2D echo shows LVH, Grade 2/4 diastolic dysfunction. LVEF 60%. Cardiac Diet Continue scheduled lasix (4) Elevated troponin Is this a current diagnosis for this admission?: Yes Plan: Denies any anginal symptoms. Likely due to demand mismatch in setting of AI. Admit to tele. Start on aspirin, statins, beta-blockers, RONI. Troponins peaked at 0.4, no longer trending (5) Pneumonia Qualifiers: Pneumonia type: due to unspecified organism Laterality: unspecified laterality Lung location: unspecified part of lung Qualified Code(s): J18.9 - Pneumonia, unspecified organism Is this a current diagnosis for this admission?: Yes Plan: Recent hospitalization 1 month ago Will treat her for healthcare associated PNA Switch from Rocephin to Vanc/cefepime Blood cultures pending Will order sputum culture (6) Acute kidney injury superimposed on CKD Is this a current diagnosis for this admission?: Yes Plan: Worsening 1.35-->1.17 Patient able to make urine - nonoliguric Creatinine range in 2019 has been 0.7-1.8 Likely prerenal given her story of 24-36 hours at home on her ground prior to coming to the hospital Avoid nephrotoxic agents. Monitor volume status and electrolytes. (7) Alcohol use disorder Is this a current diagnosis for this admission?: Yes Plan: Patient endorses drinking 3-6 scotch cocktails per day Was sober for approx. 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) 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 of insulin Is this a current diagnosis for this admission?: Yes Plan: [facility] B[facility]TE[facility] Poor glucose control Increased long-acting insulin from 25 units twice daily to 30 units twice daily Insulin sliding scale HgbA1c 9.3% Diabetic diet - Time Time Spent with patient: 15-24 minutes Medications reviewed and adjusted accordingly: Yes Anticipated discharge: SNF Within: within 72 hours - Inpatient Certification Based on my medical assessment, after consideration of the patient's comorbidities, presenting symptoms, or acuity I expect that the services needed warrant INPATIENT care.: Yes I certify that my determination is in accordance with my understanding of Medicare's requirements for reasonable and necessary INPATIENT services [42 CFR 412.3e].: Yes Medical Necessity: Significant Comorbidiites Make Outpatient Treatment Too Risky, Need For Continuous Telemetry Monitoring, Need for Nebulizer Therapy and Monitoring of Response, Risk of Complication if Not Cared For in Hospital
[2018-10-09] MEDS: ATORVASTATIN CALCIUM 40 MG TABLET PO SCH (22:32)
[2018-10-09] MEDS: PRAMIPEXOLE DI-HCL 0.5 MG TABLET PO SCH (22:32)
[2018-10-09] MEDS ORDERED: THIAMINE HCL INJ 200 MG/2 ML VIAL ONE (22:46)
[2018-10-09] MEDS: THIAMINE HCL 100 MG, FOLIC ACID 1 MG in NORMAL SALINE 250 ML IV SCH (22:49)
[2018-10-10] MEDS: LEVALBUTEROL HCL NEB 1.25 MG/3 ML AMPUL NEB SCH ×6 (00:10→19:49)
[2018-10-10] MEDS: METHYLPREDNISOLONE INJ 40 MG/1 ML SDV IV SCH ×3 (05:09→21:50)
[2018-10-10 06:17] LABS: HEMATOCRIT 35.8 % (36.0-47.0); HEMOGLOBIN 11.3 g/dL (12.0-15.5); MEAN CORPUSCULAR HEMOGLOBIN 26.1 pg (27.0-33.4); MEAN CORPUSCULAR HGB CONC 31.5 g/dL (32.0-36.0); MEAN CORPUSCULAR VOLUME 83 fl (80-97); PLATELET COUNT 232 10^3/uL (150-450); RED BLOOD COUNT 4.33 10^6/uL (3.72-5.28); RED CELL DISTRIBUTION WIDTH 20.9 % (11.5-14.0); WHITE BLOOD COUNT 15.5 10^3/uL (4.0-10.5)
[2018-10-10 06:33] LABS: ABSOLUTE LYMPHOCYTES# (MANUAL) 0.8 10^3/uL (0.5-4.7); ABSOLUTE MONOCYTES # (MANUAL) 0.2 10^3/uL (0.1-1.4); ABSOLUTE NEUTROPHILS# (MANUAL) 14.6 10^3/uL (1.7-8.2); BAND NEUTROPHILS % (MANUAL) 1 % (3-5); BASOPHILS % (MANUAL) 0 % (0-2); EOSINOPHILS % (MANUAL) 0 % (0-6); LYMPHOCYTES % (MANUAL) 5 % (13-45); MONOCYTES % (MANUAL) 1 % (3-13); PLATELET COMMENT ADEQUATE; SEGMENTED NEUTROPHILS % (MAN) 93 % (42-78); TOTAL CELLS COUNTED 100
[2018-10-10 06:34] LABS: ANISOCYTOSIS 3+; HYPOCHROMASIA 1+; STOMATOCYTES SLIGHT
[2018-10-10 06:37] LABS: ANION GAP 7 (5-19); BLOOD UREA NITROGEN 49 mg/dL (7-20); CALCIUM 8.2 mg/dL (8.4-10.2); CARBON DIOXIDE 33 mmol/L (22-30); CHLORIDE 102 mmol/L (98-107); GLUCOSE 281 mg/dL (75-110); POTASSIUM 3.4 mmol/L (3.6-5.0); SODIUM 141.9 mmol/L (137-145)
[2018-10-10] MEDS: INSULIN LISPRO 100 UNIT/ML 3 ML VIAL SUBCUT SCH ×4 (08:22→21:51)
[2018-10-10] MEDS ORDERED: POTASSIUM CHLORIDE 10 MEQ CAPSULE.ER PO ONE (08:30)
[2018-10-10] MEDS: CEFEPIME HCL 2 GM in DEXTROSE 5%-WATER 50 ML IV SCH ×2 (09:17→23:45)
[2018-10-10] MEDS: ENOXAPARIN SODIUM INJ 40 MG/0.4 ML DISP.SYRIN SUBCUT SCH (09:17)
[2018-10-10] MEDS: VENLAFAXINE HCL 75 MG CAP.SR.24H PO SCH (09:18)
[2018-10-10] MEDS: FAMOTIDINE 20 MG TABLET PO SCH ×2 (09:18→21:51)
[2018-10-10] MEDS: VANCOMYCIN HCL 750 MG in DEXTROSE 5%-WATER 250 ML IV SCH (09:18)
[2018-10-10] MEDS: FUROSEMIDE 20 MG TABLET PO SCH ×2 (09:18→18:48)
[2018-10-10] MEDS: FERROUS SULFATE 325 MG TABLET PO SCH (09:18)
[2018-10-10] MEDS: NYSTATIN TOPICAL POWDER 15 GM TP SCH ×2 (09:19→19:08)
[2018-10-10] MEDS: DOCUSATE SODIUM 100 MG CAPSULE PO SCH (09:19)
[2018-10-10] MEDS: INSULIN GLARGINE,HUM.REC.ANLOG 1,000 UNIT/10 ML VIAL SUBCUT SCH ×2 (09:20→21:51)
[2018-10-10] MEDS ORDERED: NORMAL SALINE 1000 ML 1,000 ML IV PRN (13:49)
[2018-10-10] MEDS ORDERED: NORMAL SALINE 100 ML with INSULIN REGULAR, HUMAN 100 UNIT IV PRN ×2 (13:49)
[2018-10-10] MEDS: ATORVASTATIN CALCIUM 40 MG TABLET PO SCH (21:51)
[2018-10-10] MEDS: PRAMIPEXOLE DI-HCL 0.5 MG TABLET PO SCH (21:51)
[2018-10-10] MEDS ORDERED: THIAMINE HCL INJ 200 MG/2 ML VIAL ONE (21:56)
[2018-10-11] MEDS: LEVALBUTEROL HCL NEB 1.25 MG/3 ML AMPUL NEB SCH ×6 (00:11→20:19)
[2018-10-11] MEDS: THIAMINE HCL 100 MG, FOLIC ACID 1 MG in NORMAL SALINE 250 ML IV SCH ×2 (00:20→22:32)
[2018-10-11] MEDS: METHYLPREDNISOLONE INJ 40 MG/1 ML SDV IV SCH ×2 (05:05→12:40)
--- NOTE | 2018-10-11 07:25 | PDOC PROGRESS REPORT ---
Subjective Progress Note for:: 10/10/18 Subjective:: VIVEK MAGUIRE is a 72 year old female past medical history of hypertension, diabetes, diabetic foot status post first metatarsal amputation, COPD (not on home oxygen), current smoker, PVD, hyperlipidemia, recurrent falls, alcohol abuse, plaque psoriasis. She presented to [facility] for weakness and difficulty breathing. She was admitted to the hospitalist service for a COPD exacerbation and healthcare associated PNA. The patient was initially placed ceftriaxone on for antibiotic coverage, expanded to vancomycin and cefepime for healthcare associated PNA. The patient was seen this afternoon on rounds, she is sitting in the bedside recliner on supplemental oxygen via nasal cannula. She is alert and oriented x3, able to answer all questions appropriately but frequently pauses in between sentences to catch her breath. Upon exam, mild wheezing can be auscultated in LLL lung field, it continues to improve but remains present. There is no evidence of central or peripheral cyanosis. Pulses are palpable in the upper and lower extremities. There is no evidence of peripheral edema. Continue nebulizers, steroids and antibiotics. Patient is not appropriate for discharge at this time. Expresses desire to transition to assisted living/care home care once she is rehabilitated. Reason For Visit: COPD EXACERBATION Physical Exam Vital Signs: Temp Pulse Resp BP Pulse Ox 97.4 F 104 H 18 160/90 H 95 10/10/18 16:21 10/11/18 04:00 10/11/18 04:00 10/11/18 03:30 10/11/18 04:00 Intake & Output 10/10/18 10/11/18 10/12/18 06:59 06:59 06:59 Intake Total 1675.2 1871 Balance 1675.2 1871 Weight 55 kg 55 kg General appearance: PRESENT: no acute distress, well-developed, well-nourished Head exam: PRESENT: atraumatic, normocephalic Eye exam: PRESENT: conjunctiva pink, EOMI, PERRLA. ABSENT: scleral icterus Ear exam: PRESENT: normal external ear exam Mouth exam: PRESENT: moist, tongue midline Teeth exam: PRESENT: poor dentation Neck exam: ABSENT: carotid bruit, JVD, lymphadenopathy, thyromegaly Respiratory exam: PRESENT: symmetrical, unlabored, wheezes. ABSENT: rales, rhonchi Cardiovascular exam: PRESENT: RRR. ABSENT: diastolic murmur, rubs, systolic murmur Pulses: PRESENT: normal dorsalis pedis pul Vascular exam: PRESENT: normal capillary refill GI/Abdominal exam: PRESENT: normal bowel sounds, soft. ABSENT: distended, guarding, mass, organolmegaly, rebound, tenderness Rectal exam: PRESENT: deferred Extremities exam: PRESENT: full ROM. ABSENT: calf tenderness, clubbing, pedal edema Neurological exam: PRESENT: alert, awake, oriented to person, oriented to place, oriented to time, oriented to situation Psychiatric exam: PRESENT: appropriate affect, normal mood Skin exam: PRESENT: dry, intact, warm. ABSENT: cyanosis, rash Results Laboratory Results: 10/10/18 05:51 10/10/18 05:51 10/07/18 10/07/18 10/07/18 11:42 11:42 18:45 Creatine Kinase 36 Troponin I 0.424 0.302 NT-Pro-B Natriuret Pep 7450 H 10/08/18 11:29 Creatine Kinase Troponin I 0.143 NT-Pro-B Natriuret Pep Impressions: Chest X-Ray 10/07/18 11:36 IMPRESSION: Improved aeration of the lung bases with persistent versus recurrent bibasilar airspace opacities. Status: Imported from PACS Assessment and Plan - Diagnosis (1) Acute respiratory failure with hypoxia and hypercapnia Is this a current diagnosis for this admission?: Yes Plan: Due to COPD exacerbation healthcare associated pneumonia. CXR Persistent recurrent bibasilar airspace opacities. Antibiotic coverage with vancomycin and cefepime Duo nebs, BiPAP as needed, IV steroids, pulmonary toileting Cultures pending Sputum cultures not yet collected (2) Hypertensive urgency Is this a current diagnosis for this admission?: Yes Plan: Resolved BP currently controlled AI and elevated troponins. Resume home dose cardizem PRN IV hydralazine SBP > 150. (3) CHF exacerbation Qualifiers: Heart failure type: diastolic Qualified Code(s): I50.33 - Acute on chronic diastolic (congestive) heart failure Is this a current diagnosis for this admission?: No Plan: Likely due to COPD exacerbation/pneumonia. BNP 7450 up from 1400 on 08/29/2018. 01/30/2017 2D echo shows LVH, Grade 2/4 diastolic dysfunction. LVEF 60%. Cardiac Diet Continue scheduled lasix (4) Elevated troponin Is this a current diagnosis for this admission?: Yes Plan: Denies any anginal symptoms. Likely due to demand mismatch in setting of AI. Admit to tele. Start on aspirin, statins, beta-blockers, RONI. Troponins peaked at 0.4, no longer trending (5) Pneumonia Qualifiers: Pneumonia type: due to unspecified organism Laterality: unspecified laterality Lung location: unspecified part of lung Qualified Code(s): J18.9 - Pneumonia, unspecified organism Is this a current diagnosis for this admission?: Yes Plan: Recent hospitalization 1 month ago Will treat her for healthcare associated PNA Switch from Rocephin to Vanc/cefepime Blood cultures pending Will order sputum culture (6) Acute kidney injury superimposed on CKD Is this a current diagnosis for this admission?: Yes Plan: Worsening 1.35-->1.46 Patient able to make urine - nonoliguric Creatinine range in 2019 has been 0.7-1.8 Likely prerenal given her story of 24-36 hours at home on her ground prior to coming to the hospital Avoid nephrotoxic agents. Monitor volume status and electrolytes. (7) Alcohol use disorder Is this a current diagnosis for this admission?: Yes Plan: Patient endorses drinking 3-6 scotch cocktails per day Was sober for approx. 1 month Resumed ETOH once home but only for a few day once returning to the hospital Is not exhibiting signs or symptoms of alcohol withdraw (8) Depression Qualifiers: Is this a current diagnosis for this admission?: No Plan: [facility] depression Patient states "It wouldn't be the worst thing if I croaked" No SI or HI Requesting to be made a DNR, met with Laney from [facility] Staff arranging for clergy visits Requested patient advocate to see the patient (9) Diabetes mellitus, type 2 Qualifiers: Diabetes mellitus care home insulin use: with joint terminal attack controller use Diabetes mellitus complication status: without complication Qualified Code(s): E11.9 - Type 2 diabetes mellitus without complications; Z79.4 - senior care (current) use of insulin Is this a current diagnosis for this admission?: Yes Plan: Ashleigh BENÍTEZ Poor glucose control Increased long-acting insulin from 25 units twice daily to 30 units twice daily Insulin sliding scale HgbA1c 9.3% Diabetic diet - Time Time Spent with patient: 15-24 minutes Medications reviewed and adjusted accordingly: Yes Anticipated discharge: SNF - Inpatient Certification Based on my medical assessment, after consideration of the patient's comorbidities, presenting symptoms, or acuity I expect that the services needed warrant INPATIENT care.: Yes I certify that my determination is in accordance with my understanding of Medicare's requirements for reasonable and necessary INPATIENT services [42 CFR 412.3e].: Yes Medical Necessity: Need for IV Antibiotics
[2018-10-11] MEDS: DEXTROSE 40% GEL 15 GM TUBE PO PRN (07:42)
[2018-10-11 08:17] LABS: HEMATOCRIT 41.4 % (36.0-47.0); HEMOGLOBIN 12.8 g/dL (12.0-15.5); MEAN CORPUSCULAR HEMOGLOBIN 25.6 pg (27.0-33.4); MEAN CORPUSCULAR VOLUME 82 fl (80-97); PLATELET COUNT 260 10^3/uL (150-450); RED BLOOD COUNT 5.02 10^6/uL (3.72-5.28); RED CELL DISTRIBUTION WIDTH 21.8 % (11.5-14.0); WHITE BLOOD COUNT 14.2 10^3/uL (4.0-10.5)
[2018-10-11] MEDS: INSULIN LISPRO 100 UNIT/ML 3 ML VIAL SUBCUT SCH ×4 (08:24→22:31)
[2018-10-11 08:36] LABS: ALANINE AMINOTRANSFERASE 29 U/L (9-52); ALBUMIN 3.3 g/dL (3.5-5.0); ALKALINE PHOSPHATASE 78 U/L (38-126); ANION GAP 8 (5-19); ASPARTATE AMINO TRANSFERASE 17 U/L (14-36); BILIRUBIN,DIRECT 0.3 mg/dL (0.0-0.4); BILIRUBIN,TOTAL 0.5 mg/dL (0.2-1.3); BLOOD UREA NITROGEN 40 mg/dL (7-20); CALCIUM 8.3 mg/dL (8.4-10.2); CARBON DIOXIDE 37 mmol/L (22-30); CHLORIDE 100 mmol/L (98-107); POTASSIUM 3.7 mmol/L (3.6-5.0); SODIUM 144.7 mmol/L (137-145); TOTAL PROTEIN 6.2 g/dL (6.3-8.2)
[2018-10-11 08:43] LABS: GLUCOSE 38 mg/dL (75-110)
[2018-10-11] MEDS: INSULIN GLARGINE,HUM.REC.ANLOG 1,000 UNIT/10 ML VIAL SUBCUT SCH ×2 (09:48→22:31)
[2018-10-11] MEDS: CEFEPIME HCL 2 GM in DEXTROSE 5%-WATER 50 ML IV SCH ×2 (09:49→23:05)
[2018-10-11] MEDS: VANCOMYCIN HCL 750 MG in DEXTROSE 5%-WATER 250 ML IV SCH (10:31)
[2018-10-11] MEDS: FUROSEMIDE 20 MG TABLET PO SCH ×2 (10:33→16:50)
[2018-10-11] MEDS: FERROUS SULFATE 325 MG TABLET PO SCH (10:33)
[2018-10-11] MEDS: FAMOTIDINE 20 MG TABLET PO SCH ×2 (10:33→22:35)
[2018-10-11] MEDS: VENLAFAXINE HCL 75 MG CAP.SR.24H PO SCH (10:33)
[2018-10-11] MEDS: ENOXAPARIN SODIUM INJ 40 MG/0.4 ML DISP.SYRIN SUBCUT SCH (10:34)
[2018-10-11] MEDS: NYSTATIN TOPICAL POWDER 15 GM TP SCH ×2 (10:34→16:58)
[2018-10-11] MEDS: DOCUSATE SODIUM 100 MG CAPSULE PO SCH (10:34)
--- NOTE | 2018-10-11 17:15 | PDOC PROGRESS REPORT ---
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 She presented to [facility] for weakness and difficulty breathing. She was admitted to the hospitalist service for a COPD exacerbation and healthcare associated PNA. The patient was initially placed ceftriaxone on for antibiotic coverage, expanded to vancomycin and cefepime for healthcare associated PNA. The patient was seen this afternoon on rounds, she is sitting in the bedside recliner on supplemental oxygen via nasal cannula. She is alert and oriented x3, able to answer all questions appropriately but frequently pauses in between sentences to catch her breath. Upon exam, mild wheezing can be auscultated in LLL lung field, it continues to improve but remains present. There is no evidence of central or peripheral cyanosis. Pulses are palpable in the upper and lower extremities. There is no evidence of peripheral edema. Continue nebulizers, steroids and antibiotics. Patient is not appropriate for discharge at this time. Expresses desire to transition to assisted living/[facility]cc care once she is rehabilitated. 10/09: Patient seen and examined. She is improved. She is on oxygen via nasal cannula. She has home oxygen at 2 to 3 L/min chronically. She is not far from her baseline. She had an episode of hypoglycemia this morning now it resolved. Reason For Visit: COPD EXACERBATION Physical Exam Vital Signs: Temp Pulse Resp BP Pulse Ox 98.2 F 102 H 18 150/86 H 96 10/11/18 07:31 10/11/18 16:27 10/11/18 16:27 10/11/18 07:31 10/11/18 16:27 Intake & Output 10/10/18 10/11/18 10/12/18 06:59 06:59 06:59 Intake Total 1675.2 1871 550.2 Balance 1675.2 1871 550.2 Weight 121 lb 4.068 oz 121 lb 4.068 oz Results Laboratory Results: 10/11/18 07:39 10/11/18 07:39 10/11/18 10/11/18 07:39 07:39 WBC 14.2 H RBC 5.02 Hgb 12.8 Hct 41.4 MCV 82 MCH 25.6 L MCHC 31.0 L RDW 21.8 H Plt Count 260 Sodium 144.7 Potassium 3.7 Chloride 100 Carbon Dioxide 37 H Anion Gap 8 BUN 40 H Creatinine 1.12 Est GFR ( Amer) 58 L Est GFR (Non-Af Amer) 48 L Glucose 38 L* Calcium 8.3 L Total Bilirubin 0.5 AST 17 ALT 29 Alkaline Phosphatase 78 Total Protein 6.2 L Albumin 3.3 L 10/07/18 10/07/18 10/07/18 11:42 11:42 18:45 Creatine Kinase 36 Troponin I 0.424 0.302 NT-Pro-B Natriuret Pep 7450 H 10/08/18 11:29 Creatine Kinase Troponin I 0.143 NT-Pro-B Natriuret Pep Impressions: Chest X-Ray 10/07/18 11:36 IMPRESSION: Improved aeration of the lung bases with persistent versus recurrent bibasilar airspace opacities. Assessment and Plan - Diagnosis (1) Acute respiratory failure with hypoxia and hypercapnia Is this a current diagnosis for this admission?: Yes Plan: Due to COPD exacerbation healthcare associated pneumonia. CXR Persistent recurrent bibasilar airspace opacities. Antibiotic coverage with vancomycin and cefepime Duo nebs, BiPAP as needed, IV steroids, pulmonary toileting Cultures pending Sputum cultures not yet collected 10/11/2018: Currently improved and on 3-4 L of oxygen now. (2) Acute kidney injury superimposed on CKD Is this a current diagnosis for this admission?: Yes Plan: Worsening 1.35-->1.46 Patient able to make urine - nonoliguric Creatinine range in 2019 has been 0.7-1.8 Likely prerenal given her story of 24-36 hours at home on her ground prior to coming to the hospital Avoid nephrotoxic agents. Monitor volume status and electrolytes. 02/11/2013: Currently creatinine improved to 1.12. Continue to monitor renal function. (3) Pneumonia Qualifiers: Pneumonia type: due to unspecified organism Laterality: unspecified laterality Lung location: unspecified part of lung Qualified Code(s): J18.9 - Pneumonia, unspecified organism Is this a current diagnosis for this admission?: Yes Plan: Recent hospitalization 1 month ago Will treat her for healthcare associated PNA Switch from Rocephin to Vanc/cefepime Blood cultures pending Will order sputum culture 10/11/2018: Continue current medications. Switch IV Solu-Medrol to p.o. prednisone. (4) CHF exacerbation Qualifiers: Heart failure type: diastolic Qualified Code(s): I50.33 - Acute on chronic diastolic (congestive) heart failure Is this a current diagnosis for this admission?: No Plan: Likely due to COPD exacerbation/pneumonia. BNP 7450 up from 1400 on 08/29/2018. 01/30/2017 2D echo shows LVH, Grade 2/4 diastolic dysfunction. LVEF 60%. Cardiac Diet Continue scheduled lasix 10/11/2016: Continue current treatments. Monitor weight daily. Continue diuresis. (5) Elevated troponin Is this a current diagnosis for this admission?: Yes Plan: Denies any anginal symptoms. Likely due to demand mismatch in setting of AI. Admit to tele. Start on aspirin, statins, beta-blockers, RONI. Troponins peaked at 0.4, no longer trending 10/11/2018: Likely demand ischemia. Trended down. Currently asymptomatic. (6) Hypertensive urgency Is this a current diagnosis for this admission?: Yes Plan: Resolved BP currently controlled AI and elevated troponins. Resume home dose cardizem PRN IV hydralazine SBP > 150. 10/11/2018: Continue current medications. Monitor blood pressure. (7) Alcohol use disorder Is this a current diagnosis for this admission?: Yes Plan: Patient endorses drinking 3-6 scotch cocktails per day Was sober for approx. 1 month Resumed ETOH once home but only for a few day once returning to the hospital Is not exhibiting signs or symptoms of alcohol withdraw 10/11/2018: Counseled about drinking habits. (8) Depression Qualifiers: Is this a current diagnosis for this admission?: No Plan: [facility] depression Patient states "It wouldn't be the worst thing if I croaked" No SI or HI Requesting to be made a DNR, met with Laney from [facility] Staff arranging for clergy visits Requested patient advocate to see the patient 10/11/2018: Continue current psychotropic medications. No suicidal or homicidal ideation. (9) Diabetes mellitus, type 2 Qualifiers: Diabetes mellitus mcc insulin use: with manager terminal use Diabetes mellitus complication status: without complication Qualified Code(s): E11.9 - Type 2 diabetes mellitus without complications; Z79.4 - long-term (current) use of insulin Is this a current diagnosis for this admission?: Yes Plan: Ashleigh BENÍTEZ Poor glucose control Increased long-acting insulin from 25 units twice daily to 30 units twice daily Insulin sliding scale HgbA1c 9.3% Diabetic diet 10/11/18: An episode of hypoglycemia. Continue current insulin regimen which is reduced significantly from her home dose. Monitor glucose levels.
[2018-10-11] MEDS: PREDNISONE 20 MG TABLET PO SCH (17:41)
[2018-10-11] MEDS: ACETAMINOPHEN 325 MG TABLET PO PRN (18:22)
[2018-10-11 18:50] LABS: ANION GAP 8 (5-19); BLOOD UREA NITROGEN 39 mg/dL (7-20); CALCIUM 8.1 mg/dL (8.4-10.2); CARBON DIOXIDE 33 mmol/L (22-30); CHLORIDE 98 mmol/L (98-107); GLUCOSE 194 mg/dL (75-110); POTASSIUM 3.8 mmol/L (3.6-5.0); SODIUM 138.8 mmol/L (137-145)
[2018-10-11] MEDS: PREGABALIN 100 MG CAPSULE PO SCH (22:35)
[2018-10-11] MEDS: ATORVASTATIN CALCIUM 40 MG TABLET PO SCH (22:35)
[2018-10-11] MEDS: PRAMIPEXOLE DI-HCL 0.5 MG TABLET PO SCH (22:36)
[2018-10-12] MEDS: LEVALBUTEROL HCL NEB 1.25 MG/3 ML AMPUL NEB SCH ×7 (00:17→23:44)
[2018-10-12] MEDS: HYDRALAZINE HCL INJ/PF 20 MG/1 ML SDV IV PRN (02:05)
[2018-10-12 06:53] LABS: HEMATOCRIT 39.6 % (36.0-47.0); HEMOGLOBIN 12.6 g/dL (12.0-15.5); MEAN CORPUSCULAR HEMOGLOBIN 25.9 pg (27.0-33.4); MEAN CORPUSCULAR HGB CONC 31.8 g/dL (32.0-36.0); MEAN CORPUSCULAR VOLUME 82 fl (80-97); PLATELET COUNT 232 10^3/uL (150-450); RED BLOOD COUNT 4.85 10^6/uL (3.72-5.28); RED CELL DISTRIBUTION WIDTH 21.3 % (11.5-14.0); WHITE BLOOD COUNT 11.7 10^3/uL (4.0-10.5)
[2018-10-12] MEDS: INSULIN LISPRO 100 UNIT/ML 3 ML VIAL SUBCUT SCH ×5 (07:48→22:18)
[2018-10-12] MEDS: CEFEPIME HCL 2 GM in DEXTROSE 5%-WATER 50 ML IV SCH (09:00)
[2018-10-12] MEDS: FAMOTIDINE 20 MG TABLET PO SCH ×2 (09:01→22:18)
[2018-10-12] MEDS: PREDNISONE 20 MG TABLET PO SCH (09:02)
[2018-10-12] MEDS: VENLAFAXINE HCL 75 MG CAP.SR.24H PO SCH (09:02)
[2018-10-12] MEDS: FUROSEMIDE 20 MG TABLET PO SCH ×2 (09:02→17:24)
[2018-10-12] MEDS: FERROUS SULFATE 325 MG TABLET PO SCH (09:02)
[2018-10-12] MEDS: ENOXAPARIN SODIUM INJ 40 MG/0.4 ML DISP.SYRIN SUBCUT SCH (09:02)
[2018-10-12] MEDS: DILTIAZEM HCL 240 MG CAPSULE.CR PO SCH (09:03)
[2018-10-12] MEDS: DOCUSATE SODIUM 100 MG CAPSULE PO SCH (09:03)
[2018-10-12] MEDS: NYSTATIN TOPICAL POWDER 15 GM TP SCH ×2 (09:03→17:25)
[2018-10-12] MEDS: CHOLECALCIFEROL (D3) 1,000 UNIT TABLET PO SCH (09:04)
[2018-10-12] MEDS: VANCOMYCIN HCL 750 MG in DEXTROSE 5%-WATER 250 ML IV SCH (09:04)
[2018-10-12] MEDS: INSULIN GLARGINE,HUM.REC.ANLOG 1,000 UNIT/10 ML VIAL SUBCUT SCH ×2 (09:04→22:19)
[2018-10-12 11:00] LABS: VANCOMYCIN,TROUGH 26.9 ug/mL (5.0-20.0)
[2018-10-12] MEDS ORDERED: ONDANSETRON 4 MG TAB.RAPDIS PO PRN (11:00)
--- NOTE | 2018-10-12 13:52 | PDOC PROGRESS REPORT ---
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 She presented to [facility] for weakness and difficulty breathing. She was admitted to the hospitalist service for a COPD exacerbation and healthcare associated PNA. The patient was initially placed ceftriaxone on for antibiotic coverage, expanded to vancomycin and cefepime for healthcare associated PNA. The patient was seen this afternoon on rounds, she is sitting in the bedside recliner on supplemental oxygen via nasal cannula. She is alert and oriented x3 , able to answer all questions appropriately but frequently pauses in between sentences to catch her breath. Upon exam, mild wheezing can be auscultated in LLL lung field, it continues to improve but remains present. There is no evidence of central or peripheral cyanosis. Pulses are palpable in the upper and lower extremities. There is no evidence of peripheral edema. Continue nebulizers, steroids and antibiotics. Patient is not appropriate for discharge at this time. Expresses desire to transition to assisted living/custodial care once she is rehabilitated. 10/11/18: Patient seen and examined. She is improved. She is on oxygen via nasal cannula. She has home oxygen at 2 to 3 L/min chronically. She is not far from her baseline. She had an episode of hypoglycemia this morning now it resolved. 10/12/2018: Patient is doing well. She is feeling better. She mentioned that her diarrhea has resolved. Her heart rate was slightly elevated but she just received breathing treatment. She mentioned that she is okay with palliative care but she wants to stay in the hospital. She is stable on 4 L of oxygen via nasal cannula. Reason For Visit: COPD EXACERBATION Physical Exam Vital Signs: Temp Pulse Resp BP Pulse Ox 98.0 F 101 H 20 135/80 H 92 10/12/18 11:50 10/12/18 12:20 10/12/18 12:20 10/12/18 11:50 10/12/18 12:20 Intake & Output 10/11/18 10/12/18 10/13/18 06:59 06:59 06:59 Intake Total 1871 1811.4 300 Balance 1871 1811.4 300 Weight 121 lb 4.068 oz 121 lb 4.068 oz Exam: Patient is no acute distress Alert oriented to time place person No anxiety or depression Head: atraumatic normocephalic Pupils: are equal reactive Neck: is supple and trachea is central no lymphadenopathy No pharyngeal erythema or exudates Heart: Regular rate and rhythm, no edema Lungs: Rhonchi bilaterally Abdomen: nontender nondistended Neurological exam: unremarkable Musculoskeletal: No joint swelling or effusion chronic lower back pain and tenderness No suicidal or homicidal ideation Results Laboratory Results: 10/12/18 06:44 10/12/18 09:56 10/11/18 10/12/18 10/12/18 17:46 06:44 09:56 WBC 11.7 H RBC 4.85 Hgb 12.6 Hct 39.6 MCV 82 MCH 25.9 L MCHC 31.8 L RDW 21.3 H Plt Count 232 Sodium 138.8 Potassium 3.8 Chloride 98 Carbon Dioxide 33 H Anion Gap 8 BUN 39 H Creatinine 1.06 1.33 H Est GFR ( Amer) > 60 47 L Est GFR (Non-Af Amer) 51 L 39 L Glucose 194 H Calcium 8.1 L 10/07/18 10/07/18 10/07/18 11:42 11:42 18:45 Creatine Kinase 36 Troponin I 0.424 0.302 NT-Pro-B Natriuret Pep 7450 H 10/08/18 11:29 Creatine Kinase Troponin I 0.143 NT-Pro-B Natriuret Pep Impressions: Chest X-Ray 10/07/18 11:36 IMPRESSION: Improved aeration of the lung bases with persistent versus recurrent bibasilar airspace opacities. Assessment and Plan - Diagnosis (1) Acute respiratory failure with hypoxia and hypercapnia Is this a current diagnosis for this admission?: Yes Plan: Due to COPD exacerbation healthcare associated pneumonia. CXR Persistent recurrent bibasilar airspace opacities. Antibiotic coverage with vancomycin and cefepime Duo nebs, BiPAP as needed, IV steroids, pulmonary toileting Cultures pending Sputum cultures not yet collected 10/11/2018: Currently improved and on 3-4 L of oxygen now. 10/12/2018: Stable 4 L nasal cannula oxygen. (2) Acute kidney injury superimposed on CKD Is this a current diagnosis for this admission?: Yes Plan: Worsening 1.35-->1.46 Patient able to make urine - nonoliguric Creatinine range in 2019 has been 0.7-1.8 Likely prerenal given her story of 24-36 hours at home on her ground prior to coming to the hospital Avoid nephrotoxic agents. Monitor volume status and electrolytes. 10/11/2018: Currently creatinine improved to 1.12. Continue to monitor renal function. 10/12/2018: Creatinine is 1.33, continue to monitor. (3) Pneumonia Qualifiers: Pneumonia type: due to unspecified organism Laterality: unspecified laterality Lung location: unspecified part of lung Qualified Code(s): J18.9 - Pneumonia, unspecified organism Is this a current diagnosis for this admission?: Yes Plan: Recent hospitalization 1 month ago Will treat her for healthcare associated PNA Switch from Rocephin to Vanc/cefepime Blood cultures pending Will order sputum culture 10/11/2018: Continue current medications. Switch IV Solu-Medrol to p.o. prednisone. 10/12/2018: Switch to p.o. Levaquin and stop Vanco/cefepime (4) CHF exacerbation Qualifiers: Heart failure type: diastolic Qualified Code(s): I50.33 - Acute on chronic diastolic (congestive) heart failure Is this a current diagnosis for this admission?: No Plan: Likely due to COPD exacerbation/pneumonia. BNP 7450 up from 1400 on 08/29/2018. 01/30/2017 2D echo shows LVH, Grade 2/4 diastolic dysfunction. LVEF 60%. Cardiac Diet Continue scheduled lasix 10/11/2018: Continue current treatments. Monitor weight daily. Continue diuresis. 10/12/2018: Continue current management (5) Elevated troponin Is this a current diagnosis for this admission?: Yes Plan: Denies any anginal symptoms. Likely due to demand mismatch in setting of AI. Admit to tele. Start on aspirin, statins, beta-blockers, RONI. Troponins peaked at 0.4, no longer trending 10/11/2018: Likely demand ischemia. Trended down. Currently asymptomatic. (6) Hypertensive urgency Is this a current diagnosis for this admission?: Yes Plan: Resolved BP currently controlled AI and elevated troponins. Resume home dose cardizem PRN IV hydralazine SBP > 150. 10/11/2018: Continue current medications. Monitor blood pressure. (7) Alcohol use disorder Is this a current diagnosis for this admission?: Yes Plan: Patient endorses drinking 3-6 scotch cocktails per day Was sober for approx. 1 month Resumed ETOH once home but only for a few day once returning to the hospital Is not exhibiting signs or symptoms of alcohol withdraw 10/11/2018: Counseled about drinking habits. (8) Depression Qualifiers: Is this a current diagnosis for this admission?: No Plan: [facility] depression Patient states "It wouldn't be the worst thing if I croaked" No SI or HI Requesting to be made a DNR, met with Laney from [facility] Staff arranging for clergy visits Requested patient advocate to see the patient 10/11/2018: Continue current psychotropic medications. No suicidal or homicidal ideation. (9) Diabetes mellitus, type 2 Qualifiers: Diabetes mellitus long term care administrator insulin use: with long term care administrator use Diabetes mellitus complication status: without complication Qualified Code(s): E11.9 - Type 2 diabetes mellitus without complications; Z79.4 - intermediate school teacher (current) use of insulin Is this a current diagnosis for this admission?: Yes Plan: Ashleigh BENÍTEZ Poor glucose control Increased long-acting insulin from 25 units twice daily to 30 units twice daily Insulin sliding scale HgbA1c 9.3% Diabetic diet 10/11/18: An episode of hypoglycemia. Continue current insulin regimen which is reduced significantly from her home dose. Monitor glucose levels.
[2018-10-12 14:59] LABS: ANION GAP 8 (5-19); BLOOD UREA NITROGEN 44 mg/dL (7-20); CALCIUM 8.2 mg/dL (8.4-10.2); CARBON DIOXIDE 33 mmol/L (22-30); CHLORIDE 98 mmol/L (98-107); GLUCOSE 264 mg/dL (75-110); SODIUM 139.3 mmol/L (137-145)
[2018-10-12] MEDS ORDERED: LEVOFLOXACIN 750 MG TABLET PO ONE (15:00)
[2018-10-12] MEDS: PRAMIPEXOLE DI-HCL 0.5 MG TABLET PO SCH (22:16)
[2018-10-12] MEDS: ATORVASTATIN CALCIUM 40 MG TABLET PO SCH (22:17)
[2018-10-12] MEDS: PREGABALIN 100 MG CAPSULE PO SCH (22:17)
[2018-10-12] MEDS: THIAMINE HCL 100 MG, FOLIC ACID 1 MG in NORMAL SALINE 250 ML IV SCH (22:19)
[2018-10-13] MEDS: LEVALBUTEROL HCL NEB 1.25 MG/3 ML AMPUL NEB SCH ×5 (04:33→21:13)
[2018-10-13 05:18] LABS: HEMATOCRIT 37.2 % (36.0-47.0); HEMOGLOBIN 11.6 g/dL (12.0-15.5); MEAN CORPUSCULAR HEMOGLOBIN 25.8 pg (27.0-33.4); MEAN CORPUSCULAR HGB CONC 31.1 g/dL (32.0-36.0); MEAN CORPUSCULAR VOLUME 83 fl (80-97); PLATELET COUNT 219 10^3/uL (150-450); RED BLOOD COUNT 4.48 10^6/uL (3.72-5.28); RED CELL DISTRIBUTION WIDTH 21.4 % (11.5-14.0)
[2018-10-13] MEDS: INSULIN LISPRO 100 UNIT/ML 3 ML VIAL SUBCUT SCH ×4 (08:30→21:50)
[2018-10-13] MEDS: DOCUSATE SODIUM 100 MG CAPSULE PO SCH (09:17)
[2018-10-13] MEDS: PREDNISONE 20 MG TABLET PO SCH (09:34)
[2018-10-13] MEDS: DILTIAZEM HCL 240 MG CAPSULE.CR PO SCH (09:34)
[2018-10-13] MEDS: ENOXAPARIN SODIUM INJ 40 MG/0.4 ML DISP.SYRIN SUBCUT SCH (09:35)
[2018-10-13] MEDS: FERROUS SULFATE 325 MG TABLET PO SCH (09:35)
[2018-10-13] MEDS: VENLAFAXINE HCL 75 MG CAP.SR.24H PO SCH (09:35)
[2018-10-13] MEDS: FUROSEMIDE 20 MG TABLET PO SCH ×2 (09:35→17:49)
[2018-10-13] MEDS: NYSTATIN TOPICAL POWDER 15 GM TP SCH ×2 (09:35→17:49)
[2018-10-13] MEDS: CHOLECALCIFEROL (D3) 1,000 UNIT TABLET PO SCH (09:36)
[2018-10-13] MEDS: FAMOTIDINE 20 MG TABLET PO SCH ×2 (09:36→21:13)
[2018-10-13 10:27] LABS: VANCOMYCIN,TROUGH 14.1 ug/mL (5.0-20.0)
[2018-10-13] MEDS: INSULIN GLARGINE,HUM.REC.ANLOG 1,000 UNIT/10 ML VIAL SUBCUT SCH ×2 (12:43→21:11)
--- NOTE | 2018-10-13 13:18 | PDOC PROGRESS REPORT ---
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 She presented to [facility] for weakness and difficulty breathing. She was admitted to the hospitalist service for a COPD exacerbation and healthcare associated PNA. The patient was initially placed ceftriaxone on for antibiotic coverage, expanded to vancomycin and cefepime for healthcare associated PNA. The patient was seen this afternoon on rounds, she is sitting in the bedside recliner on supplemental oxygen via nasal cannula. She is alert and oriented x3, able to answer all questions appropriately but frequently pauses in between sentences to catch her breath. Upon exam, mild wheezing can be auscultated in LLL lung field, it continues to improve but remains present. There is no evidence of central or peripheral cyanosis. Pulses are palpable in the upper and lower extremities. There is no evidence of peripheral edema. Continue nebulizers, steroids and antibiotics. Patient is not appropriate for discharge at this time. Expresses desire to transition to assisted living/retirement care once she is rehabilitated. 10/11/18: Patient seen and examined. She is improved. She is on oxygen via nasal cannula. She has home oxygen at 2 to 3 L/min chronically. She is not far from her baseline. She had an episode of hypoglycemia this morning now it re solved. 10/12/2018: Patient is doing well. She is feeling better. She mentioned that her diarrhea has resolved. Her heart rate was slightly elevated but she just received breathing treatment. She mentioned that she is okay with palliative care but she wants to stay in the hospital. She is stable on 4 L of oxygen via nasal cannula. 10/13/2018: Patient opted for hospice care. She wants to go to [facility] with hospice. He is clinically stable. Physical examination: Patient is no acute distress Alert oriented to time place person No anxiety or depression Head: atraumatic normocephalic Pupils: are equal reactive Neck: is supple and trachea is central no lymphadenopathy No pharyngeal erythema or exudates Heart: Regular rate and rhythm, no edema Lungs: Rhonchi bilaterally Abdomen: nontender nondistended Neurological exam: unremarkable Musculoskeletal: No joint swelling or effusion chronic lower back pain and tenderness No suicidal or homicidal ideation Assessment and Plan (1) Acute respiratory failure with hypoxia and hypercapnia Is this a current diagnosis for this admission?: Yes Plan: Due to COPD exacerbation healthcare associated pneumonia. CXR Persistent recurrent bibasilar airspace opacities. Antibiotic coverage with vancomycin and cefepime Duo nebs, BiPAP as needed, IV steroids, pulmonary toileting Cultures pending Sputum cultures not yet collected 10/11/2018: Currently improved and on 3-4 L of oxygen now. 10/12/2018: Stable 4 L nasal cannula oxygen. 10/13/18: Oxygen requirements decreased to 2.5 L/min (2) Acute kidney injury superimposed on CKD Is this a current diagnosis for this admission?: Yes Plan: Worsening 1.35-->1.46 Patient able to make urine - nonoliguric Creatinine range in 2019 has been 0.7-1.8 Likely prerenal given her story of 24-36 hours at home on her ground prior to coming to the hospital Avoid nephrotoxic agents. Monitor volume status and electrolytes. 10/11/2018: Currently creatinine improved to 1.12. Continue to monitor renal function. 10/12/2018: Creatinine is 1.33, continue to monitor. (3) Pneumonia Qualifiers: Pneumonia type: due to unspecified organism Laterality: unspecified laterality Lung location: unspecified part of lung Qualified Code(s): J18.9 - Pneumonia, unspecified organism Is this a current diagnosis for this admission?: Yes Plan: Recent hospitalization 1 month ago Will treat her for healthcare associated PNA Switch from Rocephin to Vanc/cefepime Blood cultures pending Will order sputum culture 10/11/2018: Continue current medications. Switch IV Solu-Medrol to p.o. prednisone. 10/12/2018: Switch to p.o. Levaquin and stop Vanco/cefepime 10/13/2018: Continue oral Levaquin (4) CHF exacerbation Qualifiers: Heart failure type: diastolic Qualified Code(s): I50.33 - Acute on chronic diastolic (congestive) heart failure Is this a current diagnosis for this admission?: No Plan: Likely due to COPD exacerbation/pneumonia. BNP 7450 up from 1400 on 08/29/2018. 01/30/2017 2D echo shows LVH, Grade 2/4 diastolic dysfunction. LVEF 60%. Cardiac Diet Continue scheduled lasix 10/11/2018: Continue current treatments. Monitor weight daily. Continue diuresis. 10/12/2018: Continue current management 10/13/2018: Continue diuresis. Patient is compensated. (5) Elevated troponin Is this a current diagnosis for this admission?: Yes Plan: Denies any anginal symptoms. Likely due to demand mismatch in setting of AI. Admit to tele. Start on aspirin, statins, beta-blockers, RONI. Troponins peaked at 0.4, no longer trending 10/11/2018: Likely demand ischemia. Trended down. Currently asymptomatic. (6) Hypertensive urgency Is this a current diagnosis for this admission?: Yes Plan: Resolved BP currently controlled AI and elevated troponins. Resume home dose cardizem PRN IV hydralazine SBP > 150. 10/11/2018: Continue current medications. Monitor blood pressure. (7) Alcohol use disorder Is this a current diagnosis for this admission?: Yes Plan: Patient endorses drinking 3-6 scotch cocktails per day Was sober for approx. 1 month Resumed ETOH once home but only for a few day once returning to the hospital Is not exhibiting signs or symptoms of alcohol withdraw 10/11/2018: Counseled about drinking habits. (8) Depression Qualifiers: Is this a current diagnosis for this admission?: No Plan: [facility] depression Patient states "It wouldn't be the worst thing if I croaked" No SI or HI Requesting to be made a DNR, met with Laney from [facility] Staff arranging for clergy visits Requested patient advocate to see the patient 10/11/2018: Continue current psychotropic medications. No suicidal or homicidal ideation. (9) Diabetes mellitus, type 2 Qualifiers: Diabetes mellitus supervisor road administrator insulin use: with supervisor road administrator use Diabetes mellitus complication status: without complication Qualified Code(s): E11.9 - Type 2 diabetes mellitus without complications; Z79.4 - energy project manager (current) use of insulin Is this a current diagnosis for this admission?: Yes Plan: Ashleigh BENÍTEZ Poor glucose control Increased long-acting insulin from 25 units twice daily to 30 units twice daily Insulin sliding scale HgbA1c 9.3% Diabetic diet 10/11/18: An episode of hypoglycemia. Continue current insulin regimen which is reduced significantly from her home dose. Monitor glucose levels. Discharge to hospice once it is accepted to [facility]. Reason For Visit: COPD EXACERBATION Physical Exam Vital Signs: Temp Pulse Resp BP Pulse Ox 97.5 F 80 20 139/70 H 91 L 10/13/18 08:00 10/13/18 12:30 10/13/18 12:30 10/13/18 08:00 10/13/18 12:30 Intake & Output 10/12/18 10/13/18 10/14/18 06:59 06:59 06:59 Intake Total 1811.4 1751.2 Balance 1811.4 1751.2 Weight 121 lb 4.068 oz 121 lb 4.068 oz Results Laboratory Results: 10/13/18 04:28 10/13/18 09:47 10/12/18 10/13/18 10/13/18 14:19 04:28 09:47 WBC 12.0 H RBC 4.48 Hgb 11.6 L Hct 37.2 MCV 83 MCH 25.8 L MCHC 31.1 L RDW 21.4 H Plt Count 219 Sodium 139.3 Potassium 4.0 Chloride 98 Carbon Dioxide 33 H Anion Gap 8 BUN 44 H Creatinine 1.43 H 1.31 H Est GFR ( Amer) 44 L 48 L Est GFR (Non-Af Amer) 36 L 40 L Glucose 264 H Calcium 8.2 L 10/07/18 18:45 Blood Blood Culture - Final NO GROWTH IN 5 DAYS 10/07/18 16:49 Blood Blood Culture - Final NO GROWTH IN 5 DAYS 10/07/18 10/07/18 10/07/18 11:42 11:42 18:45 Creatine Kinase 36 Troponin I 0.424 0.302 NT-Pro-B Natriuret Pep 7450 H 10/08/18 11:29 Creatine Kinase Troponin I 0.143 NT-Pro-B Natriuret Pep Impressions: Chest X-Ray 10/07/18 11:36 IMPRESSION: Improved aeration of the lung bases with persistent versus recurrent bibasilar airspace opacities. Assessment and Plan - Diagnosis (1) Acute respiratory failure with hypoxia and hypercapnia Is this a current diagnosis for this admission?: Yes (2) Acute kidney injury superimposed on CKD Is this a current diagnosis for this admission?: Yes (3) Pneumonia Qualifiers: Pneumonia type: due to unspecified organism Laterality: unspecified laterality Lung location: unspecified part of lung Qualified Code(s): J18.9 - Pneumonia, unspecified organism Is this a current diagnosis for this admission?: Yes (4) CHF exacerbation Qualifiers: Heart failure type: diastolic Qualified Code(s): I50.33 - Acute on chronic diastolic (congestive) heart failure Is this a current diagnosis for this admission?: No (5) Elevated troponin Is this a current diagnosis for this admission?: Yes (6) Hypertensive urgency Is this a current diagnosis for this admission?: Yes (7) Alcohol use disorder Is this a current diagnosis for this admission?: Yes (8) Depression Qualifiers: Is this a current diagnosis for this admission?: No (9) Diabetes mellitus, type 2 Qualifiers: Diabetes mellitus retirement insulin use: with retirement use Diabetes mellitus complication status: without complication Qualified Code(s): E11.9 - Type 2 diabetes mellitus without complications; Z79.4 - [facility] (current) use of insulin Is this a current diagnosis for this admission?: Yes
--- NOTE | 2018-10-13 13:21 | ADVANCED CARE ---
Resuscitation Status: Full Code Discussion: Discussed with patient. She says she is comfortable with going to hospice but she wants to go to [facility] facility. Time Spent: 60 minutes
[2018-10-13] MEDS: THIAMINE HCL 100 MG, FOLIC ACID 1 MG in NORMAL SALINE 250 ML IV SCH (21:12)
[2018-10-13] MEDS: ATORVASTATIN CALCIUM 40 MG TABLET PO SCH (21:13)
[2018-10-13] MEDS: PREGABALIN 100 MG CAPSULE PO SCH (21:14)
[2018-10-13] MEDS: PRAMIPEXOLE DI-HCL 0.5 MG TABLET PO SCH (21:14)
[2018-10-14] MEDS: LEVALBUTEROL HCL NEB 1.25 MG/3 ML AMPUL NEB SCH ×6 (02:33→19:55)
[2018-10-14] MEDS: INSULIN GLARGINE,HUM.REC.ANLOG 1,000 UNIT/10 ML VIAL SUBCUT SCH ×2 (08:44→21:37)
[2018-10-14] MEDS: INSULIN LISPRO 100 UNIT/ML 3 ML VIAL SUBCUT SCH ×4 (08:44→22:09)
[2018-10-14] MEDS: PREDNISONE 20 MG TABLET PO SCH (08:45)
[2018-10-14] MEDS: VENLAFAXINE HCL 75 MG CAP.SR.24H PO SCH (08:45)
[2018-10-14] MEDS: DILTIAZEM HCL 240 MG CAPSULE.CR PO SCH (08:45)
[2018-10-14] MEDS: FUROSEMIDE 20 MG TABLET PO SCH ×2 (08:46→17:12)
[2018-10-14] MEDS: ENOXAPARIN SODIUM INJ 40 MG/0.4 ML DISP.SYRIN SUBCUT SCH (08:46)
[2018-10-14] MEDS: NYSTATIN TOPICAL POWDER 15 GM TP SCH ×2 (08:46→17:12)
[2018-10-14] MEDS: FAMOTIDINE 20 MG TABLET PO SCH ×2 (08:46→21:38)
[2018-10-14] MEDS: FERROUS SULFATE 325 MG TABLET PO SCH (08:46)
[2018-10-14] MEDS: DOCUSATE SODIUM 100 MG CAPSULE PO SCH (08:47)
[2018-10-14] MEDS: CHOLECALCIFEROL (D3) 1,000 UNIT TABLET PO SCH (08:47)
--- NOTE | 2018-10-14 11:58 | PDOC PROGRESS REPORT ---
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 She presented to [facility] for weakness and difficulty breathing. She was admitted to the hospitalist service for a COPD exacerbation and healthcare associated PNA. The patient was initially placed ceftriaxone on for antibiotic coverage, expanded to vancomycin and cefepime for healthcare associated PNA. The patient was seen this afternoon on rounds, she is sitting in the bedside recliner on supplemental oxygen via nasal cannula. She is alert and oriented x3, able to answer all questions appropriately but frequently pauses in between sentences to catch her breath. Upon exam, mild wheezing can be auscultated in LLL lung field, it continues to improve but remains present. There is no evidence of central or peripheral cyanosis. Pulses are palpable in the upper and lower extremities. There is no evidence of peripheral edema. Continue nebulizers, steroids and antibiotics. Patient is not appropriate for discharge at this time. Expresses desire to transition to assisted living/nursing home care once she is rehabilitated. 10/11/18: Patient seen and examined. She is improved. She is on oxygen via nasal cannula. She has home oxygen at 2 to 3 L/min chronically. She is not far from her baseline. She had an episode of hypoglycemia this morning now it re solved. 10/12/2018: Patient is doing well. She is feeling better. She mentioned that her diarrhea has resolved. Her heart rate was slightly elevated but she just received breathing treatment. She mentioned that she is okay with palliative care but she wants to stay in the hospital. She is stable on 4 L of oxygen via nasal cannula. 10/13/2018: Patient opted for hospice care. She wants to go to [facility] with hospice. He is clinically stable. 10/14/2018: Continues to be stable on nasal cannula oxygen. She is tolerating diet. She is clinically stable. Awaiting placement to [facility] with hospice. Physical examination: Patient is no acute distress Alert oriented to time place person No anxiety or depression Head: atraumatic normocephalic Pupils: are equal reactive Neck: is supple and trachea is central no lymphadenopathy No pharyngeal erythema or exudates Heart: Regular rate and rhythm, no edema Lungs: Rhonchi bilaterally Abdomen: nontender nondistended Neurological exam: unremarkable Musculoskeletal: No joint swelling or effusion chronic lower back pain and tenderness No suicidal or homicidal ideation Assessment and Plan (1) Acute respiratory failure with hypoxia and hypercapnia Is this a current diagnosis for this admission?: Yes Plan: Due to COPD exacerbation healthcare associated pneumonia. CXR Persistent recurrent bibasilar airspace opacities. Antibiotic coverage with vancomycin and cefepime Duo nebs, BiPAP as needed, IV steroids, pulmonary toileting Cultures pending Sputum cultures not yet collected 10/11/2018: Currently improved and on 3-4 L of oxygen now. 10/12/2018: Stable 4 L nasal cannula oxygen. 10/13/18: Oxygen requirements decreased to 2.5 L/min 10/14/2018: Continues to be stable on nasal cannula oxygen 2 L/min. (2) Acute kidney injury superimposed on CKD Is this a current diagnosis for this admission?: Yes Plan: Worsening 1.35-->1.46 Patient able to make urine - nonoliguric Creatinine range in 2019 has been 0.7-1.8 Likely prerenal given her story of 24-36 hours at home on her ground prior to coming to the hospital Avoid nephrotoxic agents. Monitor volume status and electrolytes. 10/11/2018: Currently creatinine improved to 1.12. Continue to monitor renal function. 10/12/2018: Creatinine is 1.33, continue to monitor. (3) Pneumonia Qualifiers: Pneumonia type: due to unspecified organism Laterality: unspecified laterality Lung location: unspecified part of lung Qualified Code(s): J18.9 - Pneumonia, unspecified organism Is this a current diagnosis for this admission?: Yes Plan: Recent hospitalization 1 month ago Will treat her for healthcare associated PNA Switch from Rocephin to Vanc/cefepime Blood cultures pending Will order sputum culture 10/11/2018: Continue current medications. Switch IV Solu-Medrol to p.o. prednisone. 10/12/2018: Switch to p.o. Levaquin and stop Vanco/cefepime 10/13/2018: Continue oral Levaquin (4) CHF exacerbation Qualifiers: Heart failure type: diastolic Qualified Code(s): I50.33 - Acute on chronic diastolic (congestive) heart failure Is this a current diagnosis for this admission?: No Plan: Likely due to COPD exacerbation/pneumonia. BNP 7450 up from 1400 on 08/29/2018. 01/30/2017 2D echo shows LVH, Grade 2/4 diastolic dysfunction. LVEF 60%. Cardiac Diet Continue scheduled lasix 10/11/2018: Continue current treatments. Monitor weight daily. Continue diuresis. 10/12/2018: Continue current management 10/13/2018: Continue diuresis. Patient is compensated. (5) Elevated troponin Is this a current diagnosis for this admission?: Yes Plan: Denies any anginal symptoms. Likely due to demand mismatch in setting of AI. Admit to tele. Start on aspirin, statins, beta-blockers, RONI. Troponins peaked at 0.4, no longer trending 10/11/2018: Likely demand ischemia. Trended down. Currently asymptomatic. (6) Hypertensive urgency Is this a current diagnosis for this admission?: Yes Plan: Resolved BP currently controlled AI and elevated troponins. Resume home dose cardizem PRN IV hydralazine SBP > 150. 10/11/2018: Continue current medications. Monitor blood pressure. (7) Alcohol use disorder Is this a current diagnosis for this admission?: Yes Plan: Patient endorses drinking 3-6 scotch cocktails per day Was sober for approx. 1 month Resumed ETOH once home but only for a few day once returning to the hospital Is not exhibiting signs or symptoms of alcohol withdraw 10/11/2018: Counseled about drinking habits. (8) Depression Qualifiers: Is this a current diagnosis for this admission?: No Plan: [facility] depression Patient states "It wouldn't be the worst thing if I croaked" No SI or HI Requesting to be made a DNR, met with Laney from [facility] Staff arranging for clergy visits Requested patient advocate to see the patient 10/11/2018: Continue current psychotropic medications. No suicidal or homicidal ideation. (9) Diabetes mellitus, type 2 Qualifiers: Diabetes mellitus nursing home insulin use: with intermediate frame tender use Diabetes mellitus complication status: without complication Qualified Code(s): E11.9 - Type 2 diabetes mellitus without complications; Z79.4 - intermediate accountant (current) use of insulin Is this a current diagnosis for this admission?: Yes Plan: Accreina BENÍTEZ Poor glucose control Increased long-acting insulin from 25 units twice daily to 30 units twice daily Insulin sliding scale HgbA1c 9.3% Diabetic diet 10/11/18: An episode of hypoglycemia. Continue current insulin regimen which is reduced significantly from her home dose. Monitor glucose levels. Discharge to hospice once she is accepted to [facility]. Reason For Visit: COPD EXACERBATION Physical Exam Vital Signs: Temp Pulse Resp BP Pulse Ox 98.3 F 86 18 144/66 H 94 10/14/18 08:00 10/14/18 08:22 10/14/18 08:22 10/14/18 08:00 10/14/18 08:22 Intake & Output 10/13/18 10/14/18 10/15/18 06:59 06:59 06:59 Intake Total 1751.2 1000 251.2 Balance 1751.2 1000 251.2 Weight 121 lb 4.068 oz 124 lb 1.924 oz Results Laboratory Results: 10/13/18 04:28 10/13/18 09:47 10/07/18 10/07/18 10/07/18 11:42 11:42 18:45 Creatine Kinase 36 Troponin I 0.424 0.302 NT-Pro-B Natriuret Pep 7450 H 10/08/18 11:29 Creatine Kinase Troponin I 0.143 NT-Pro-B Natriuret Pep Impressions: Chest X-Ray 10/07/18 11:36 IMPRESSION: Improved aeration of the lung bases with persistent versus recurrent bibasilar airspace opacities. Assessment and Plan - Diagnosis (1) Acute respiratory failure with hypoxia and hypercapnia Is this a current diagnosis for this admission?: Yes (2) Acute kidney injury superimposed on CKD Is this a current diagnosis for this admission?: Yes (3) Pneumonia Qualifiers: Pneumonia type: due to unspecified organism Laterality: unspecified laterality Lung location: unspecified part of lung Qualified Code(s): J18.9 - Pneumonia, unspecified organism Is this a current diagnosis for this admission?: Yes (4) CHF exacerbation Qualifiers: Heart failure type: diastolic Qualified Code(s): I50.33 - Acute on chronic diastolic (congestive) heart failure Is this a current diagnosis for this admission?: No (5) Elevated troponin Is this a current diagnosis for this admission?: Yes (6) Hypertensive urgency Is this a current diagnosis for this admission?: Yes (7) Alcohol use disorder Is this a current diagnosis for this admission?: Yes (8) Depression Qualifiers: Is this a current diagnosis for this admission?: No (9) Diabetes mellitus, type 2 Qualifiers: Diabetes mellitus nursing home insulin use: with nursing home use Diabetes mellitus complication status: without complication Qualified Code(s): E11.9 - Type 2 diabetes mellitus without complications; Z79.4 - intermediate accountant (current) use of insulin Is this a current diagnosis for this admission?: Yes
[2018-10-14] MEDS: LEVOFLOXACIN 750 MG TABLET PO SCH (12:18)
[2018-10-14] MEDS: THIAMINE HCL 100 MG, FOLIC ACID 1 MG in NORMAL SALINE 250 ML IV SCH (21:37)
[2018-10-14] MEDS: PREGABALIN 100 MG CAPSULE PO SCH (21:38)
[2018-10-14] MEDS: PRAMIPEXOLE DI-HCL 0.5 MG TABLET PO SCH (21:38)
[2018-10-14] MEDS: ATORVASTATIN CALCIUM 40 MG TABLET PO SCH (21:38)
[2018-10-15] MEDS: LEVALBUTEROL HCL NEB 1.25 MG/3 ML AMPUL NEB SCH ×6 (02:54→19:14)
[2018-10-15] MEDS: INSULIN LISPRO 100 UNIT/ML 3 ML VIAL SUBCUT SCH ×4 (07:46→23:19)
[2018-10-15] MEDS: INSULIN GLARGINE,HUM.REC.ANLOG 1,000 UNIT/10 ML VIAL SUBCUT SCH ×2 (10:34→23:20)
[2018-10-15] MEDS: CHOLECALCIFEROL (D3) 1,000 UNIT TABLET PO SCH (10:35)
[2018-10-15] MEDS: ENOXAPARIN SODIUM INJ 40 MG/0.4 ML DISP.SYRIN SUBCUT SCH (10:35)
[2018-10-15] MEDS: FERROUS SULFATE 325 MG TABLET PO SCH (10:36)
[2018-10-15] MEDS: VENLAFAXINE HCL 75 MG CAP.SR.24H PO SCH (10:36)
[2018-10-15] MEDS: DILTIAZEM HCL 240 MG CAPSULE.CR PO SCH (10:36)
[2018-10-15] MEDS: DOCUSATE SODIUM 100 MG CAPSULE PO SCH (10:36)
[2018-10-15] MEDS: FUROSEMIDE 20 MG TABLET PO SCH ×2 (10:36→17:12)
[2018-10-15] MEDS: FAMOTIDINE 20 MG TABLET PO SCH ×2 (10:36→23:21)
[2018-10-15] MEDS: PREDNISONE 20 MG TABLET PO SCH (10:37)
--- NOTE | 2018-10-15 11:06 | PDOC PROGRESS REPORT ---
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 She presented to [facility] for weakness and difficulty breathing. She was admitted to the hospitalist service for a COPD exacerbation and healthcare associated PNA. The patient was initially placed ceftriaxone on for antibiotic coverage, expanded to vancomycin and cefepime for healthcare associated PNA. The patient was seen this afternoon on rounds, she is sitting in the bedside recliner on supplemental oxygen via nasal cannula. She is alert and oriented x3, able to answer all questions appropriately but frequently pauses in between sentences to catch her breath. Upon exam, mild wheezing can be auscultated in LLL lung field, it continues to improve but remains present. There is no evidence of central or peripheral cyanosis. Pulses are palpable in the upper and lower extremities. There is no evidence of peripheral edema. Continue nebulizers, steroids and antibiotics. Patient is not appropriate for discharge at this time. Expresses desire to transition to assisted living/[facility] care once she is rehabilitated. 10/11/18: Patient seen and examined. She is improved. She is on oxygen via nasal cannula. She has home oxygen at 2 to 3 L/min chronically. She is not far from her baseline. She had an episode of hypoglycemia this morning now it re solved. 10/12/2018: Patient is doing well. She is feeling better. She mentioned that her diarrhea has resolved. Her heart rate was slightly elevated but she just received breathing treatment. She mentioned that she is okay with palliative care but she wants to stay in the hospital. She is stable on 4 L of oxygen via nasal cannula. 10/13/2018: Patient opted for hospice care. She wants to go to [facility] with hospice. He is clinically stable. 10/14/2018: Continues to be stable on nasal cannula oxygen. She is tolerating diet. She is clinically stable. Awaiting placement to [facility] with hospice. 10/15/2018: Patient stable on nasal cannula oxygen. She is tolerating diet. Still awaiting placement with hospice. She does me that she is losing sense of taste and wants to have medication to restore her taste. Physical examination: Patient is no acute distress Alert oriented to time place person No anxiety or depression Head: atraumatic normocephalic Pupils: are equal reactive Neck: is supple and trachea is central no lymphadenopathy No pharyngeal erythema or exudates Heart: Regular rate and rhythm, no edema Lungs: Rhonchi bilaterally Abdomen: nontender nondistended Neurological exam: unremarkable Musculoskeletal: No joint swelling or effusion chronic lower back pain and tenderness No suicidal or homicidal ideation Assessment and Plan (1) Acute respiratory failure with hypoxia and hypercapnia Is this a current diagnosis for this admission?: Yes Plan: Due to COPD exacerbation healthcare associated pneumonia. CXR Persistent recurrent bibasilar airspace opacities. Antibiotic coverage with vancomycin and cefepime Duo nebs, BiPAP as needed, IV steroids, pulmonary toileting Cultures pending Sputum cultures not yet collected 10/11/2018: Currently improved and on 3-4 L of oxygen now. 10/12/2018: Stable 4 L nasal cannula oxygen. 10/13/18: Oxygen requirements decreased to 2.5 L/min 10/14/2018: Continues to be stable on nasal cannula oxygen 2 L/min. 10/15/2018: Continue supplement oxygen as needed. (2) Acute kidney injury superimposed on CKD Is this a current diagnosis for this admission?: Yes Plan: Worsening 1.35-->1.46 Patient able to make urine - nonoliguric Creatinine range in 2019 has been 0.7-1.8 Likely prerenal given her story of 24-36 hours at home on her ground prior to coming to the hospital Avoid nephrotoxic agents. Monitor volume status and electrolytes. 10/11/2018: Currently creatinine improved to 1.12. Continue to monitor renal function. 10/12/2018: Creatinine is 1.33, continue to monitor. (3) Pneumonia Qualifiers: Pneumonia type: due to unspecified organism Laterality: unspecified laterality Lung location: unspecified part of lung Qualified Code(s): J18.9 - Pneumonia, unspecified organism Is this a current diagnosis for this admission?: Yes Plan: Recent hospitalization 1 month ago Will treat her for healthcare associated PNA Switch from Rocephin to Vanc/cefepime Blood cultures pending Will order sputum culture 10/11/2018: Continue current medications. Switch IV Solu-Medrol to p.o. prednisone. 10/12/2018: Switch to p.o. Levaquin and stop Vanco/cefepime 10/13/2018: Continue oral Levaquin 10/15/2018: Continue Levaquin (4) CHF exacerbation Qualifiers: Heart failure type: diastolic Qualified Code(s): I50.33 - Acute on chronic diastolic (congestive) heart failure Is this a current diagnosis for this admission?: No Plan: Likely due to COPD exacerbation/pneumonia. BNP 7450 up from 1400 on 08/29/2018. 01/30/2017 2D echo shows LVH, Grade 2/4 diastolic dysfunction. LVEF 60%. Cardiac Diet Continue scheduled lasix 10/11/2018: Continue current treatments. Monitor weight daily. Continue diuresis. 10/12/2018: Continue current management 10/13/2018: Continue diuresis. Patient is compensated. (5) Elevated troponin Is this a current diagnosis for this admission?: Yes Plan: Denies any anginal symptoms. Likely due to demand mismatch in setting of AI. Admit to tele. Start on aspirin, statins, beta-blockers, RONI. Troponins peaked at 0.4, no longer trending 10/11/2018: Likely demand ischemia. Trended down. Currently asymptomatic. (6) Hypertensive urgency Is this a current diagnosis for this admission?: Yes Plan: Resolved BP currently controlled AI and elevated troponins. Resume home dose cardizem PRN IV hydralazine SBP > 150. 10/11/2018: Continue current medications. Monitor blood pressure. 10/15/2018: Decrease Cardizem to 120 surfed to 40 due to patient complaining of losing taste. (7) Alcohol use disorder Is this a current diagnosis for this admission?: Yes Plan: Patient endorses drinking 3-6 scotch cocktails per day Was sober for approx. 1 month Resumed ETOH once home but only for a few day once returning to the hospital Is not exhibiting signs or symptoms of alcohol withdraw 10/11/2018: Counseled about drinking habits. (8) Depression Qualifiers: Is this a current diagnosis for this admission?: No Plan: [facility] depression Patient states "It wouldn't be the worst thing if I croaked" No SI or HI Requesting to be made a DNR, met with Laney from [facility] Staff arranging for clergy visits Requested patient advocate to see the patient 10/11/2018: Continue current psychotropic medications. No suicidal or homicidal ideation. (9) Diabetes mellitus, type 2 Qualifiers: Diabetes mellitus v belt coverer insulin use: with [place] [facility] use Diabetes mellitus complication status: without complication Qualified Code(s): E11.9 - Type 2 diabetes mellitus without complications; Z79.4 - glass grinder (current) use of insulin Is this a current diagnosis for this admission?: Yes Plan: Ashleigh BENÍTEZ Poor glucose control Increased long-acting insulin from 25 units twice daily to 30 units twice daily Insulin sliding scale HgbA1c 9.3% Diabetic diet 10/11/18: An episode of hypoglycemia. Continue current insulin regimen which is reduced significantly from her home dose. Monitor glucose levels. 10/15/2018: Continue insulin scale monitor glucose levels Discharge to hospice once she is accepted to [facility]. Reason For Visit: COPD EXACERBATION Physical Exam Vital Signs: Temp Pulse Resp BP Pulse Ox 97.4 F 90 18 132/54 H 100 10/15/18 04:00 10/15/18 07:50 10/15/18 07:50 10/15/18 04:00 10/15/18 07:50 Intake & Output 10/14/18 10/15/18 10/16/18 06:59 06:59 06:59 Intake Total 1000 1242.4 Balance 1000 1242.4 Weight 124 lb 1.924 oz 117 lb 4.575 oz Results Laboratory Results: 10/13/18 04:28 10/13/18 09:47 10/07/18 10/07/18 10/07/18 11:42 11:42 18:45 Creatine Kinase 36 Troponin I 0.424 0.302 NT-Pro-B Natriuret Pep 7450 H 10/08/18 11:29 Creatine Kinase Troponin I 0.143 NT-Pro-B Natriuret Pep Impressions: Chest X-Ray 10/07/18 11:36 IMPRESSION: Improved aeration of the lung bases with persistent versus recu rrent bibasilar airspace opacities. Assessment and Plan - Diagnosis (1) Acute respiratory failure with hypoxia and hypercapnia Is this a current diagnosis for this admission?: Yes (2) Acute kidney injury superimposed on CKD Is this a current diagnosis for this admission?: Yes (3) Pneumonia Qualifiers: Pneumonia type: due to unspecified organism Laterality: unspecified laterality Lung location: unspecified part of lung Qualified Code(s): J18.9 - Pneumonia, unspecified organism Is this a current diagnosis for this admission?: Yes (4) CHF exacerbation Qualifiers: Heart failure type: diastolic Qualified Code(s): I50.33 - Acute on chronic diastolic (congestive) heart failure Is this a current diagnosis for this admission?: No (5) Elevated troponin Is this a current diagnosis for this admission?: Yes (6) Hypertensive urgency Is this a current diagnosis for this admission?: Yes (7) Alcohol use disorder Is this a current diagnosis for this admission?: Yes (8) Depression Qualifiers: Is this a current diagnosis for this admission?: No (9) Diabetes mellitus, type 2 Qualifiers: Diabetes mellitus [place] [facility] insulin use: with v belt coverer use Diabetes mellitus complication status: without complication Qualified Code(s): E11.9 - Type 2 diabetes mellitus without complications; Z79.4 - glass grinder (current) use of insulin Is this a current diagnosis for this admission?: Yes
[2018-10-15] MEDS: NYSTATIN TOPICAL POWDER 15 GM TP SCH ×2 (12:19→17:09)
[2018-10-15] MEDS: PRAMIPEXOLE DI-HCL 0.5 MG TABLET PO SCH (23:21)
[2018-10-15] MEDS: PREGABALIN 100 MG CAPSULE PO SCH (23:21)
[2018-10-15] MEDS: ATORVASTATIN CALCIUM 40 MG TABLET PO SCH (23:21)
[2018-10-15] MEDS: THIAMINE HCL 100 MG, FOLIC ACID 1 MG in NORMAL SALINE 250 ML IV SCH (23:22)
[2018-10-16] MEDS: LEVALBUTEROL HCL NEB 1.25 MG/3 ML AMPUL NEB SCH ×7 (00:23→23:51)
[2018-10-16] MEDS: ACETAMINOPHEN 325 MG TABLET PO PRN (00:52)
[2018-10-16] MEDS: INSULIN LISPRO 100 UNIT/ML 3 ML VIAL SUBCUT SCH ×3 (07:26→17:20)
[2018-10-16] MEDS: ENOXAPARIN SODIUM INJ 40 MG/0.4 ML DISP.SYRIN SUBCUT SCH (09:55)
[2018-10-16] MEDS: VENLAFAXINE HCL 75 MG CAP.SR.24H PO SCH (09:56)
[2018-10-16] MEDS: PREDNISONE 20 MG TABLET PO SCH (09:56)
[2018-10-16] MEDS: DILTIAZEM HCL 120 MG CAP.SR.24H PO SCH (09:56)
[2018-10-16] MEDS: FAMOTIDINE 20 MG TABLET PO SCH ×2 (09:56→21:06)
[2018-10-16] MEDS: FERROUS SULFATE 325 MG TABLET PO SCH (09:57)
[2018-10-16] MEDS: DOCUSATE SODIUM 100 MG CAPSULE PO SCH (09:57)
[2018-10-16] MEDS: LEVOFLOXACIN 750 MG TABLET PO SCH (09:57)
[2018-10-16] MEDS: FUROSEMIDE 20 MG TABLET PO SCH ×2 (09:57→17:20)
[2018-10-16] MEDS: CHOLECALCIFEROL (D3) 1,000 UNIT TABLET PO SCH (09:58)
[2018-10-16] MEDS: INSULIN GLARGINE,HUM.REC.ANLOG 1,000 UNIT/10 ML VIAL SUBCUT SCH ×2 (10:00→21:05)
--- NOTE | 2018-10-16 10:52 | PDOC PROGRESS REPORT ---
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 She presented to [facility] for weakness and difficulty breathing. She was admitted to the hospitalist service for a COPD exacerbation and healthcare associated PNA. The patient was initially placed ceftriaxone on for antibiotic coverage, expanded to vancomycin and cefepime for healthcare associated PNA. The patient was seen this afternoon on rounds, she is sitting in the bedside recliner on supplemental oxygen via nasal cannula. She is alert and oriented x3, able to answer all questions appropriately but frequently pauses in between sentences to catch her breath. Upon exam, mild wheezing can be auscultated in LLL lung field, it continues to improve but remains present. There is no evidence of central or peripheral cyanosis. Pulses are palpable in the upper and lower extremities. There is no evidence of peripheral edema. Continue nebulizers, steroids and antibiotics. Patient is not appropriate for discharge at this time. Expresses desire to transition to assisted living/shelter care once she is rehabilitated. 10/11/18: Patient seen and examined. She is improved. She is on oxygen via nasal cannula. She has home oxygen at 2 to 3 L/min chronically. She is not far from her baseline. She had an episode of hypoglycemia this morning now it re solved. 10/12/2018: Patient is doing well. She is feeling better. She mentioned that her diarrhea has resolved. Her heart rate was slightly elevated but she just received breathing treatment. She mentioned that she is okay with palliative care but she wants to stay in the hospital. She is stable on 4 L of oxygen via nasal cannula. 10/13/2018: Patient opted for hospice care. She wants to go to [facility] with hospice. He is clinically stable. 10/14/2018: Continues to be stable on nasal cannula oxygen. She is tolerating diet. She is clinically stable. Awaiting placement to [facility] with hospice. 10/15/2018: Patient stable on nasal cannula oxygen. She is tolerating diet. Still awaiting placement with hospice. She does me that she is losing sense of taste and wants to have medication to restore her taste. 10/16/2018: Clinically stable. No acute issues. Still waiting placement with hospice. Physical examination: Patient is no acute distress Alert oriented to time place person No anxiety or depression Head: atraumatic normocephalic Pupils: are equal reactive Neck: is supple and trachea is central no lymphadenopathy No pharyngeal erythema or exudates Heart: Regular rate and rhythm, no edema Lungs: Rhonchi bilaterally Abdomen: nontender nondistended Neurological exam: unremarkable Musculoskeletal: No joint swelling or effusion chronic lower back pain and tende rness No suicidal or homicidal ideation Assessment and Plan (1) Acute respiratory failure with hypoxia and hypercapnia Is this a current diagnosis for this admission?: Yes Plan: Due to COPD exacerbation healthcare associated pneumonia. CXR Persistent recurrent bibasilar airspace opacities. Antibiotic coverage with vancomycin and cefepime Duo nebs, BiPAP as needed, IV steroids, pulmonary toileting Cultures pending Sputum cultures not yet collected 10/11/2018: Currently improved and on 3-4 L of oxygen now. 10/12/2018: Stable 4 L nasal cannula oxygen. 10/13/18: Oxygen requirements decreased to 2.5 L/min 10/14/2018: Continues to be stable on nasal cannula oxygen 2 L/min. 10/15/2018: Continue supplement oxygen as needed. 10/16/2018: At this point, I think she is oxygen dependent. Continue oxygen. (2) Acute kidney injury superimposed on CKD Is this a current diagnosis for this admission?: Yes Plan: Worsening 1.35-->1.46 Patient able to make urine - nonoliguric Creatinine range in 2019 has been 0.7-1.8 Likely prerenal given her story of 24-36 hours at home on her ground prior to coming to the hospital Avoid nephrotoxic agents. Monitor volume status and electrolytes. 10/11/2018: Currently creatinine improved to 1.12. Continue to monitor renal function. 10/12/2018: Creatinine is 1.33, continue to monitor. (3) Pneumonia Qualifiers: Pneumonia type: due to unspecified organism Laterality: unspecified laterality Lung location: unspecified part of lung Qualified Code(s): J18.9 - Pneumonia, unspecified organism Is this a current diagnosis for this admission?: Yes Plan: Recent hospitalization 1 month ago Will treat her for healthcare associated PNA Switch from Rocephin to Vanc/cefepime Blood cultures pending Will order sputum culture 10/11/2018: Continue current medications. Switch IV Solu-Medrol to p.o. prednisone. 10/12/2018: Switch to p.o. Levaquin and stop Vanco/cefepime 10/13/2018: Continue oral Levaquin 10/15/2018: Continue Levaquin 10/16/2018: Continue Levaquin for now (4) CHF exacerbation Qualifiers: Heart failure type: diastolic Qualified Code(s): I50.33 - Acute on chronic diastolic (congestive) heart failure Is this a current diagnosis for this admission?: No Plan: Likely due to COPD exacerbation/pneumonia. BNP 7450 up from 1400 on 08/29/2018. 01/30/2017 2D echo shows LVH, Grade 2/4 diastolic dysfunction. LVEF 60%. Cardiac Diet Continue scheduled lasix 10/11/2018: Continue current treatments. Monitor weight daily. Continue diuresis. 10/12/2018: Continue current management 10/13/2018: Continue diuresis. Patient is compensated. (5) Elevated troponin Is this a current diagnosis for this admission?: Yes Plan: Denies any anginal symptoms. Likely due to demand mismatch in setting of AI. Admit to tele. Start on aspirin, statins, beta-blockers, RONI. Troponins peaked at 0.4, no longer trending 10/11/2018: Likely demand ischemia. Trended down. Currently asymptomatic. (6) Hypertensive urgency Is this a current diagnosis for this admission?: Yes Plan: Resolved BP currently controlled AI and elevated troponins. Resume home dose cardizem PRN IV hydralazine SBP > 150. 10/11/2018: Continue current medications. Monitor blood pressure. 10/15/2018: Decrease Cardizem to 120 surfed to 40 due to patient complaining of losing taste. (7) Alcohol use disorder Is this a current diagnosis for this admission?: Yes Plan: Patient endorses drinking 3-6 scotch cocktails per day Was sober for approx. 1 month Resumed ETOH once home but only for a few day once returning to the hospital Is not exhibiting signs or symptoms of alcohol withdraw 10/11/2018: Counseled about drinking habits. (8) Depression Qualifiers: Is this a current diagnosis for this admission?: No Plan: [facility] depression Patient states "It wouldn't be the worst thing if I croaked" No SI or HI Requesting to be made a DNR, met with Laney from [facility] Staff arranging for clergy visits Requested patient advocate to see the patient 10/11/2018: Continue current psychotropic medications. No suicidal or homicidal ideation. 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 Continue current insulin regimen which is reduced significantly from her home dose. Monitor glucose levels. 10/15/2018: Continue insulin scale monitor glucose levels Disposition: Discharge to hospice once she is accepted to [facility]. Reason For Visit: COPD EXACERBATION Physical Exam Vital Signs: Temp Pulse Resp BP Pulse Ox 98.4 F 86 18 159/76 H 96 10/15/18 23:04 10/16/18 08:14 10/16/18 08:14 10/15/18 23:04 10/16/18 08:14 Intake & Output 10/15/18 10/16/18 10/17/18 06:59 06:59 06:59 Intake Total 1242.4 928.2 Balance 1242.4 928.2 Weight 117 lb 4.575 oz 117 lb 4.575 oz Results Laboratory Results: 10/13/18 04:28 10/13/18 09:47 10/07/18 10/07/18 10/07/18 11:42 11:42 18:45 Creatine Kinase 36 Troponin I 0.424 0.302 NT-Pro-B Natriuret Pep 7450 H 10/08/18 11:29 Creatine Kinase Troponin I 0.143 NT-Pro-B Natriuret Pep Impressions: Chest X-Ray 10/07/18 11:36 IMPRESSION: Improved aeration of the lung bases with persistent versus recurrent bibasilar airspace opacities. Assessment and Plan - Diagnosis (1) Acute respiratory failure with hypoxia and hypercapnia Is this a current diagnosis for this admission?: Yes (2) Acute kidney injury superimposed on CKD Is this a current diagnosis for this admission?: Yes (3) Pneumonia Qualifiers: Pneumonia type: due to unspecified organism Laterality: unspecified laterality Lung location: unspecified part of lung Qualified Code(s): J18.9 - Pneumonia, unspecified organism Is this a current diagnosis for this admission?: Yes (4) CHF exacerbation Qualifiers: Heart failure type: diastolic Qualified Code(s): I50.33 - Acute on chronic diastolic (congestive) heart failure Is this a current diagnosis for this admission?: No (5) Elevated troponin Is this a current diagnosis for this admission?: Yes (6) Hypertensive urgency Is this a current diagnosis for this admission?: Yes (7) Alcohol use disorder Is this a current diagnosis for this admission?: Yes (8) Depression Qualifiers: Is this a current diagnosis for this admission?: No (9) Diabetes mellitus, type 2 Qualifiers: Diabetes mellitus shelter insulin use: with shelter use Diabetes mellitus complication status: without complication Qualified Code(s): E11.9 - Type 2 diabetes mellitus without complications; 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
[2018-10-16] MEDS: THIAMINE HCL 100 MG, FOLIC ACID 1 MG in NORMAL SALINE 250 ML IV SCH (21:05)
[2018-10-16] MEDS: PRAMIPEXOLE DI-HCL 0.5 MG TABLET PO SCH (21:06)
[2018-10-16] MEDS: ATORVASTATIN CALCIUM 40 MG TABLET PO SCH (21:06)
[2018-10-16] MEDS: PREGABALIN 100 MG CAPSULE PO SCH (21:06)
[2018-10-17] MEDS: INSULIN LISPRO 100 UNIT/ML 3 ML VIAL SUBCUT SCH ×5 (00:23→21:26)
[2018-10-17] MEDS: LEVALBUTEROL HCL NEB 1.25 MG/3 ML AMPUL NEB SCH ×5 (04:12→19:41)
[2018-10-17] MEDS: CHOLECALCIFEROL (D3) 1,000 UNIT TABLET PO SCH (09:40)
[2018-10-17 09:41] LABS: ABSOLUTE LYMPHOCYTES (AUTO) 1.1 10^3/uL (0.5-4.7); ABSOLUTE NEUT (AUTO) 9.9 10^3/uL (1.7-8.2); EOSINOPHILS % (AUTO) 0.3 % (0-6); HEMATOCRIT 34.3 % (36.0-47.0); HEMOGLOBIN 10.7 g/dL (12.0-15.5); LYMPHOCYTES % (AUTO) 8.9 % (13-45); MEAN CORPUSCULAR HEMOGLOBIN 25.8 pg (27.0-33.4); MEAN CORPUSCULAR HGB CONC 31.1 g/dL (32.0-36.0); MEAN CORPUSCULAR VOLUME 83 fl (80-97); MONOCYTES % (AUTO) 8.4 % (3-13); PLATELET COUNT 247 10^3/uL (150-450); RED BLOOD COUNT 4.13 10^6/uL (3.72-5.28); RED CELL DISTRIBUTION WIDTH 21.5 % (11.5-14.0); SEGMENTED NEUTROPHILS % (AUTO) 82.4 % (42-78); TOTAL CELLS COUNTED % (AUTO) 100 %
[2018-10-17] MEDS: VENLAFAXINE HCL 75 MG CAP.SR.24H PO SCH (09:41)
[2018-10-17] MEDS: FERROUS SULFATE 325 MG TABLET PO SCH (09:41)
[2018-10-17] MEDS: DILTIAZEM HCL 120 MG CAP.SR.24H PO SCH (09:41)
[2018-10-17] MEDS: FUROSEMIDE 20 MG TABLET PO SCH ×2 (09:42→17:43)
[2018-10-17] MEDS: ENOXAPARIN SODIUM INJ 40 MG/0.4 ML DISP.SYRIN SUBCUT SCH (09:42)
[2018-10-17] MEDS: FAMOTIDINE 20 MG TABLET PO SCH ×2 (09:42→21:00)
[2018-10-17] MEDS: PREDNISONE 20 MG TABLET PO SCH (09:42)
[2018-10-17] MEDS: INSULIN GLARGINE,HUM.REC.ANLOG 1,000 UNIT/10 ML VIAL SUBCUT SCH ×2 (09:43→21:00)
[2018-10-17] MEDS: DOCUSATE SODIUM 100 MG CAPSULE PO SCH (09:44)
[2018-10-17 10:06] LABS: ALANINE AMINOTRANSFERASE 41 U/L (9-52); ALBUMIN 2.9 g/dL (3.5-5.0); ALKALINE PHOSPHATASE 60 U/L (38-126); ANION GAP 8 (5-19); ASPARTATE AMINO TRANSFERASE 28 U/L (14-36); BILIRUBIN,DIRECT 0.2 mg/dL (0.0-0.4); BILIRUBIN,TOTAL 0.4 mg/dL (0.2-1.3); BLOOD UREA NITROGEN 31 mg/dL (7-20); CALCIUM 8.2 mg/dL (8.4-10.2); CARBON DIOXIDE 38 mmol/L (22-30); CHLORIDE 95 mmol/L (98-107); GLUCOSE 178 mg/dL (75-110); POTASSIUM 3.3 mmol/L (3.6-5.0); SODIUM 140.7 mmol/L (137-145); TOTAL PROTEIN 5.1 g/dL (6.3-8.2)
--- NOTE | 2018-10-17 14:09 | PDOC PROGRESS REPORT ---
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 She presented to [facility] for weakness and difficulty breathing. She was admitted to the hospitalist service for a COPD exacerbation and healthcare associated PNA. The patient was initially placed ceftriaxone on for antibiotic coverage, expanded to vancomycin and cefepime for healthcare associated PNA. The patient was seen this afternoon on rounds, she is sitting in the bedside recliner on supplemental oxygen via nasal cannula. She is alert and oriented x3, able to answer all questions appropriately but frequently pauses in between sentences to catch her breath. Upon exam, mild wheezing can be auscultated in LLL lung field, it continues to improve but remains present. There is no evidence of central or peripheral cyanosis. Pulses are palpable in the upper and lower extremities. There is no evidence of peripheral edema. Continue nebulizers, steroids and antibiotics. Patient is not appropriate for discharge at this time. 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 10/11/18: Patient seen and examined. She is improved. She is on oxygen via nasal cannula. She has home oxygen at 2 to 3 L/min chronically. She is not far from her baseline. She had an episode of hypoglycemia this morning now it resolved. 10/12/2018: Patient is doing well. She is feeling better. She mentioned that her diarrhea has resolved. Her heart rate was slightly elevated but she just received breathing treatment. She mentioned that she is okay with palliative care but she wants to stay in the hospital. She is stable on 4 L of oxygen via nasal cannula. 10/13/2018: Patient opted for hospice care. She wants to go to [facility] with hospice. He is clinically stable. 10/14/2018: Continues to be stable on nasal cannula oxygen. She is tolerating diet. She is clinically stable. Awaiting placement to [facility] with hospice. 10/15/2018: Patient stable on nasal cannula oxygen. She is tolerating diet. Still awaiting placement with hospice. She does me that she is losing sense of taste and wants to have medication to restore her taste. 10/16/2018: Clinically stable. No acute issues. Still waiting placement with hospice. 10/16/2018 patient is stable afebrile no acute events in the last 24 hours. Waiting for placement as per the patient she is going to assisted living tomorrow. Reason For Visit: COPD EXACERBATION Physical Exam Vital Signs: Temp Pulse Resp BP Pulse Ox 97.3 F 104 H 18 164/78 H 96 10/17/18 05:00 10/17/18 12:16 10/17/18 12:16 10/17/18 05:00 10/17/18 12:16 Intake & Output 10/16/18 10/17/18 10/18/18 06:59 06:59 06:59 Intake Total 928.2 780 474 Balance 928.2 780 474 Weight 53.2 kg 53.2 kg General appearance: PRESENT: no acute distress, thin Head exam: PRESENT: atraumatic Eye exam: PRESENT: PERRLA Mouth exam: PRESENT: moist, tongue midline Neck exam: ABSENT: carotid bruit, JVD, lymphadenopathy, thyromegaly Respiratory exam: PRESENT: decreased breath sounds, wheezes Cardiovascular exam: PRESENT: tachycardia GI/Abdominal exam: PRESENT: normal bowel sounds, soft. ABSENT: distended, guarding, mass, organolmegaly, rebound, tenderness Rectal exam: PRESENT: deferred Extremities exam: PRESENT: full ROM. ABSENT: calf tenderness, clubbing, pedal edema Neurological exam: PRESENT: alert, awake, oriented to person, oriented to place, oriented to time, oriented to situation, CN II-XII grossly intact. ABSENT: motor sensory deficit Psychiatric exam: PRESENT: appropriate affect, normal mood. ABSENT: homicidal ideation, suicidal ideation Results Laboratory Results: 10/17/18 09:09 10/17/18 09:09 10/17/18 10/17/18 09:09 09:09 WBC 12.0 H RBC 4.13 Hgb 10.7 L Hct 34.3 L MCV 83 MCH 25.8 L MCHC 31.1 L RDW 21.5 H Plt Count 247 Seg Neutrophils % 82.4 H Lymphocytes % 8.9 L Monocytes % 8.4 Eosinophils % 0.3 Basophils % 0.0 Absolute Neutrophils 9.9 H Absolute Lymphocytes 1.1 Absolute Monocytes 1.0 Absolute Eosinophils 0.0 Absolute Basophils 0.0 Sodium 140.7 Potassium 3.3 L Chloride 95 L Carbon Dioxide 38 H Anion Gap 8 BUN 31 H Creatinine 1.21 Est GFR ( Amer) 53 L Est GFR (Non-Af Amer) 44 L Glucose 178 H Calcium 8.2 L Total Bilirubin 0.4 AST 28 ALT 41 Alkaline Phosphatase 60 Total Protein 5.1 L Albumin 2.9 L 10/07/18 10/07/18 10/07/18 11:42 11:42 18:45 Creatine Kinase 36 Troponin I 0.424 0.302 NT-Pro-B Natriuret Pep 7450 H 10/08/18 11:29 Creatine Kinase Troponin I 0.143 NT-Pro-B Natriuret Pep Impressions: Chest X-Ray 10/07/18 11:36 IMPRESSION: Improved aeration of the lung bases with persistent versus recurrent bibasilar airspace opacities. Assessment and Plan - Diagnosis (1) Acute respiratory failure with hypoxia and hypercapnia Is this a current diagnosis for this admission?: Yes Plan: Due to COPD exacerbation healthcare associated pneumonia. CXR Persistent recurrent bibasilar airspace opacities. Antibiotic coverage with vancomycin and cefepime Duo nebs, BiPAP as needed, IV steroids, pulmonary toileting Cultures pending Sputum cultures not yet collected 10/11/2018: Currently improved and on 3-4 L of oxygen now. 10/12/2018: Stable 4 L nasal cannula oxygen. 10/16/2018-patient's pulse ox today is 97% on 3 L. Communicating well. On examination chest bilateral entry still severely decreased, bilateral mild wheezing present. (2) Acute kidney injury superimposed on CKD Is this a current diagnosis for this admission?: Yes Plan: Worsening 1.35-->1.46 Patient able to make urine - nonoliguric Creatinine range in 2019 has been 0.7-1.8 Likely prerenal given her story of 24-36 hours at home on her ground prior to coming to the hospital Avoid nephrotoxic agents. Monitor volume status and electrolytes. 10/11/2018: Currently creatinine improved to 1.12. Continue to monitor renal function. 10/12/2018: Creatinine is 1.33, continue to monitor. 10/17/2018-patient admitted with acute kidney injury superimposed on CKD. On admission serum creatinine is 1.35 and the latest creatinine is 1.21, baseline creatinine is around 1.2 AKA resolving. (3) Pneumonia Qualifiers: Pneumonia type: due to unspecified organism Laterality: unspecified laterality Lung location: unspecified part of lung Qualified Code(s): J18.9 - Pneumonia, unspecified organism Is this a current diagnosis for this admission?: Yes Plan: Recent hospitalization 1 month ago Will treat her for healthcare associated PNA Switch from Rocephin to Vanc/cefepime Blood cultures pending Will order sputum culture 10/11/2018: Continue current medications. Switch IV Solu-Medrol to p.o. prednisone. 10/12/2018: Switch to p.o. Levaquin and stop Vanco/cefepime 10/17/2018-patient is presently on pupil levo floxacillin and p.o. prednisone she was admitted with healthcare associated pneumonia. Blood cultures are negative. Most likely combination of gram-positive gram-negative organisms are responsi ble. (4) Hypertensive urgency Is this a current diagnosis for this admission?: Yes Plan: Resolved BP currently controlled AI and elevated troponins. Resume home dose cardizem PRN IV hydralazine SBP > 150. 10/11/2018: Continue current medications. Monitor blood pressure. 10/17/2018-patient's latest blood pressure is 164/78 moderately controlled. Plan is to continue the present management. (5) CHF exacerbation Qualifiers: Heart failure type: diastolic Qualified Code(s): I50.33 - Acute on chronic diastolic (congestive) heart failure Is this a current diagnosis for this admission?: No Plan: Likely due to COPD exacerbation/pneumonia. BNP 7450 up from 1400 on 08/29/2018. 01/30/2017 2D echo shows LVH, Grade 2/4 diastolic dysfunction. LVEF 60%. Cardiac Diet Continue scheduled lasix 10/11/2018: Continue current treatments. Monitor weight daily. Continue diuresis. 10/12/2018: Continue current management 10/17/2018-patient is euvolemic. Patient's EF is 60% most likely she has moderate diastolic dysfunction which was chronic. Plan is to decrease the Lasix from 20 twice daily to once a day. - Time Time Spent with patient: 25-34 minutes Medications reviewed and adjusted accordingly: Yes Anticipated discharge: Home
[2018-10-17] MEDS: ATORVASTATIN CALCIUM 40 MG TABLET PO SCH (21:00)
[2018-10-17] MEDS: PREGABALIN 100 MG CAPSULE PO SCH (21:00)
[2018-10-17] MEDS: THIAMINE HCL 100 MG, FOLIC ACID 1 MG in NORMAL SALINE 250 ML IV SCH (21:00)
[2018-10-17] MEDS: PRAMIPEXOLE DI-HCL 0.5 MG TABLET PO SCH (21:00)
[2018-10-18] MEDS: LEVALBUTEROL HCL NEB 1.25 MG/3 ML AMPUL NEB SCH ×7 (00:05→21:39)
[2018-10-18] MEDS: HYDRALAZINE HCL INJ/PF 20 MG/1 ML SDV IV PRN (00:19)
[2018-10-18] MEDS: ACETAMINOPHEN 325 MG TABLET PO PRN (07:10)
[2018-10-18] MEDS: INSULIN LISPRO 100 UNIT/ML 3 ML VIAL SUBCUT SCH ×4 (07:34→23:14)
[2018-10-18] MEDS ORDERED: POTASSIUM CHLORIDE 10 MEQ CAPSULE.ER PO ONE ×2 (08:27→13:00)
[2018-10-18] MEDS: INSULIN GLARGINE,HUM.REC.ANLOG 1,000 UNIT/10 ML VIAL SUBCUT SCH ×2 (10:52→23:15)
[2018-10-18] MEDS: CHOLECALCIFEROL (D3) 1,000 UNIT TABLET PO SCH (10:52)
[2018-10-18] MEDS: PREDNISONE 20 MG TABLET PO SCH (10:52)
[2018-10-18] MEDS: FUROSEMIDE 20 MG TABLET PO SCH ×2 (10:53→18:09)
[2018-10-18] MEDS: VENLAFAXINE HCL 75 MG CAP.SR.24H PO SCH (10:54)
[2018-10-18] MEDS: LEVOFLOXACIN 750 MG TABLET PO SCH (10:54)
[2018-10-18] MEDS: FERROUS SULFATE 325 MG TABLET PO SCH (10:54)
[2018-10-18] MEDS: FAMOTIDINE 20 MG TABLET PO SCH ×2 (10:54→23:15)
[2018-10-18] MEDS: DOCUSATE SODIUM 100 MG CAPSULE PO SCH (10:55)
[2018-10-18] MEDS: ENOXAPARIN SODIUM INJ 40 MG/0.4 ML DISP.SYRIN SUBCUT SCH (10:57)
[2018-10-18] MEDS: DILTIAZEM HCL 120 MG CAP.SR.24H PO SCH (11:02)
--- NOTE | 2018-10-18 12:22 | PDOC PROGRESS REPORT ---
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 She presented to [facility] for weakness and difficulty breathing. She was admitted to the hospitalist service for a COPD exacerbation and healthcare associated PNA. The patient was initially placed ceftriaxone on for antibiotic coverage, expanded to vancomycin and cefepime for healthcare associated PNA. The patient was seen this afternoon on rounds, she is sitting in the bedside recliner on supplemental oxygen via nasal cannula. She is alert and oriented x3, able to answer all questions appropriately but frequently pauses in between sentences to catch her breath. Upon exam, mild wheezing can be auscultated in LLL lung field, it continues to improve but remains present. There is no evidence of central or peripheral cyanosis. Pulses are palpable in the upper and lower extremities. There is no evidence of peripheral edema. Continue nebulizers, steroids and antibiotics. Patient is not appropriate for discharge at this time. 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 10/11/18: Patient seen and examined. She is improved. She is on oxygen via nasal cannula. She has home oxygen at 2 to 3 L/min chronically. She is not far from her baseline. She had an episode of hypoglycemia this morning now it resolved. 10/12/2018: Patient is doing well. She is feeling better. She mentioned that her diarrhea has resolved. Her heart rate was slightly elevated but she just received breathing treatment. She mentioned that she is okay with palliative care but she wants to stay in the hospital. She is stable on 4 L of oxygen via nasal cannula. 10/13/2018: Patient opted for hospice care. She wants to go to [facility] with hospice. He is clinically stable. 10/14/2018: Continues to be stable on nasal cannula oxygen. She is tolerating diet. She is clinically stable. Awaiting placement to [facility] with hospice. 10/15/2018: Patient stable on nasal cannula oxygen. She is tolerating diet. Still awaiting placement with hospice. She does me that she is losing sense of taste and wants to have medication to restore her taste. 10/16/2018: Clinically stable. No acute issues. Still waiting placement with hospice. 10/17/2018 patient is stable afebrile no acute events in the last 24 hours. Waiting for placement as per the patient she is going to assisted living tomorrow. 10/18/2018-recent is comfortably sleeping in the bed. Afebrile. No acute events in the last 24 hours. Waiting for placement. Reason For Visit: COPD EXACERBATION Physical Exam Vital Signs: Temp Pulse Resp BP Pulse Ox 97.4 F 79 18 131/70 H 98 10/18/18 09:05 10/18/18 11:53 10/18/18 11:53 10/18/18 09:05 10/18/18 11:53 Intake & Output 10/17/18 10/18/18 10/19/18 06:59 06:59 06:59 Intake Total 1031 2507.2 Balance 1031 2507.2 Weight 53.2 kg 53.2 kg General appearance: PRESENT: no acute distress, thin Head exam: PRESENT: atraumatic Eye exam: PRESENT: PERRLA Mouth exam: PRESENT: moist, tongue midline Neck exam: ABSENT: carotid bruit, JVD, lymphadenopathy, thyromegaly Respiratory exam: PRESENT: decreased breath sounds Cardiovascular exam: PRESENT: systolic murmur, tachycardia GI/Abdominal exam: PRESENT: normal bowel sounds, soft. ABSENT: distended, guarding, mass, organolmegaly, rebound, tenderness Rectal exam: PRESENT: deferred Extremities exam: PRESENT: full ROM. ABSENT: calf tenderness, clubbing, pedal edema Neurological exam: PRESENT: alert, awake, oriented to person, oriented to place, oriented to time, oriented to situation, CN II-XII grossly intact. ABSENT: motor sensory deficit Psychiatric exam: PRESENT: appropriate affect, normal mood. ABSENT: homicidal ideation, suicidal ideation Results Laboratory Results: 10/17/18 09:09 10/17/18 09:09 10/18/18 06:10 Magnesium 1.8 10/07/18 10/07/18 10/07/18 11:42 11:42 18:45 Creatine Kinase 36 Troponin I 0.424 0.302 NT-Pro-B Natriuret Pep 7450 H 10/08/18 11:29 Creatine Kinase Troponin I 0.143 NT-Pro-B Natriuret Pep Impressions: Chest X-Ray 10/07/18 11:36 IMPRESSION: Improved aeration of the lung bases with persistent versus recurrent bibasilar airspace opacities. Assessment and Plan - Diagnosis (1) Acute respiratory failure with hypoxia and hypercapnia Is this a current diagnosis for this admission?: Yes Plan: Due to COPD exacerbation healthcare associated pneumonia. CXR Persistent recurrent bibasilar airspace opacities. Antibiotic coverage with vancomycin and cefepime Duo nebs, BiPAP as needed, IV steroids, pulmonary toileting Cultures pending Sputum cultures not yet collected 10/11/2018: Currently improved and on 3-4 L of oxygen now. 10/12/2018: Stable 4 L nasal cannula oxygen. 10/17/2018-patient's pulse ox today is 97% on 3 L. Communicating well. On examination chest bilateral entry still severely decreased, bilateral mild wheezing present. 10/18/2018-patient is comfortably sleeping in the bed she was admitted with acute respiratory failure with hypoxia and hypercapnia pulse ox today is 98% on 3 L. No complaints. Blood cultures are negative. Presently on prednisone 40 mg p.o. daily and levo floxacillin. Plan is to continue the present management. (2) Acute kidney injury superimposed on CKD Is this a current diagnosis for this admission?: Yes Plan: Worsening 1.35-->1.46 Patient able to make urine - nonoliguric Creatinine range in 2019 has been 0.7-1.8 Likely prerenal given her story of 24-36 hours at home on her ground prior to coming to the hospital Avoid nephrotoxic agents. Monitor volume status and electrolytes. 10/11/2018: Currently creatinine improved to 1.12. Continue to monitor renal function. 10/12/2018: Creatinine is 1.33, continue to monitor. 10/17/2018-patient admitted with acute kidney injury superimposed on CKD. On admission serum creatinine is 1.35 and the latest creatinine is 1.21, baseline creatinine is around 1.2 Arya resolving. 10/18/2018-patient was admitted with acute kidney injury superimposed on CKD tod ay's creatinine is 1.21 improved. On admission it is 1.35. ARYA resolving. (3) Pneumonia Qualifiers: Pneumonia type: due to unspecified organism Laterality: unspecified laterality Lung location: unspecified part of lung Qualified Code(s): J18.9 - Pneumonia, unspecified organism Is this a current diagnosis for this admission?: Yes Plan: Recent hospitalization 1 month ago Will treat her for healthcare associated PNA Switch from Rocephin to Vanc/cefepime Blood cultures pending Will order sputum culture 10/11/2018: Continue current medications. Switch IV Solu-Medrol to p.o. prednisone. 10/12/2018: Switch to p.o. Levaquin and stop Vanco/cefepime 10/17/2018-patient is presently on po levo floxacillin and p.o. prednisone she was admitted with healthcare associated pneumonia. Blood cultures are negative. Most likely combination of gram-positive gram-negative organisms are responsible. 10/18/2018-patient is presently n.p.o. levo floxacillin. Afebrile. Blood cultures are negative. Unable to collect sputum culture. Plan is to continue the antibiotic at least another day or 2. (4) Hypertensive urgency Is this a current diagnosis for this admission?: Yes Plan: Resolved BP currently controlled ARYA and elevated troponins. Resume home dose cardizem PRN IV hydralazine SBP > 150. 10/11/2018: Continue current medications. Monitor blood pressure. 10/17/2018-patient's latest blood pressure is 164/78 moderately controlled. Plan is to continue the present management. 10/18/2018-patient blood pressure today's 133/55 stable. Plan is to continue the present management Cardizem 20 mg p.o. daily and she is also on IV hydralazine as needed. (5) CHF exacerbation Qualifiers: Heart failure type: diastolic Qualified Code(s): I50.33 - Acute on chronic diastolic (congestive) heart failure Is this a current diagnosis for this admission?: No Plan: Likely due to COPD exacerbation/pneumonia. BNP 7450 up from 1400 on 08/29/2018. 01/30/2017 2D echo shows LVH, Grade 2/4 diastolic dysfunction. LVEF 60%. Cardiac Diet Continue scheduled lasix 10/11/2018: Continue current treatments. Monitor weight daily. Continue diuresis. 10/12/2018: Continue current management 10/17/2018-patient is euvolemic. Patient's EF is 60% most likely she has moderate diastolic dysfunction which was chronic. Plan is to decrease the Lasix from 20 twice daily to once a day. 2018-patient recent echo suggested EF of 60% most likely she has chronic diastolic heart failure presently on Lasix 20 mg p.o. twice daily plan is to continue the present management. - Time Time Spent with patient: 25-34 minutes Medications reviewed and adjusted accordingly: Yes Anticipated discharge: SNF
--- NOTE | 2018-10-18 13:14 | RADIOLOGY REPORT (SQ) ---
EXAM DESCRIPTION: CHEST SINGLE VIEW COMPLETED DATE/TIME: 10/18/2018 1:04 pm REASON FOR STUDY: pneumonia COMPARISON: 10/07/2018 EXAM PARAMETERS: NUMBER OF VIEWS: One view. TECHNIQUE: Single frontal radiographic view of the chest acquired. RADIATION DOSE: NA LIMITATIONS: None. FINDINGS: LUNGS AND PLEURA: Possible 12 mm nodule in the right costophrenic angle may be calcified. MEDIASTINUM AND HILAR STRUCTURES: No masses. Contour normal. HEART AND VASCULAR STRUCTURES: Heart normal in size. Normal vasculature. BONES: No acute findings. HARDWARE: None in the chest. OTHER: No other significant finding. IMPRESSION: Cannot exclude right pulmonary nodule. No infiltrate is present. TECHNICAL DOCUMENTATION: JOB ID: [id number] [employer]- All Rights Reserved Reading location - IP/workstation name: [email or web address]
[2018-10-18] MEDS ORDERED: INSULIN LISPRO 100 UNIT/ML 3 ML VIAL SUBCUT ONE (17:00)
[2018-10-18] MEDS ORDERED: TUBERCULIN,PURIF.PROT.DERIV. 5 TU/0.1 ML TEST 1 ML VIAL ID ONE (18:00)
[2018-10-18] MEDS: THIAMINE HCL 100 MG, FOLIC ACID 1 MG in NORMAL SALINE 250 ML IV SCH (23:12)
[2018-10-18] MEDS: PREGABALIN 100 MG CAPSULE PO SCH (23:15)
[2018-10-18] MEDS: ATORVASTATIN CALCIUM 40 MG TABLET PO SCH (23:16)
[2018-10-18] MEDS: PRAMIPEXOLE DI-HCL 0.5 MG TABLET PO SCH (23:16)
[2018-10-19] MEDS: LEVALBUTEROL HCL NEB 1.25 MG/3 ML AMPUL NEB SCH ×6 (00:07→20:02)
[2018-10-19 06:11] LABS: HEMATOCRIT 34.6 % (36.0-47.0); HEMOGLOBIN 10.9 g/dL (12.0-15.5); MEAN CORPUSCULAR HGB CONC 31.3 g/dL (32.0-36.0); MEAN CORPUSCULAR VOLUME 83 fl (80-97); RED BLOOD COUNT 4.17 10^6/uL (3.72-5.28); RED CELL DISTRIBUTION WIDTH 21.2 % (11.5-14.0); WHITE BLOOD COUNT 11.2 10^3/uL (4.0-10.5)
[2018-10-19 06:18] LABS: ALANINE AMINOTRANSFERASE 48 U/L (9-52); ALBUMIN 2.9 g/dL (3.5-5.0); ALKALINE PHOSPHATASE 62 U/L (38-126); ASPARTATE AMINO TRANSFERASE 26 U/L (14-36); BILIRUBIN,DIRECT 0.2 mg/dL (0.0-0.4); BILIRUBIN,TOTAL 0.3 mg/dL (0.2-1.3); BLOOD UREA NITROGEN 27 mg/dL (7-20); CALCIUM 8.6 mg/dL (8.4-10.2); CHLORIDE 96 mmol/L (98-107); GLUCOSE 106 mg/dL (75-110); POTASSIUM 3.3 mmol/L (3.6-5.0); SODIUM 141.9 mmol/L (137-145); TOTAL PROTEIN 5.3 g/dL (6.3-8.2)
[2018-10-19 06:28] LABS: ANION GAP 5 (5-19)
[2018-10-19 06:29] LABS: CARBON DIOXIDE 41 mmol/L (22-30)
[2018-10-19 06:44] LABS: ABSOLUTE MONOCYTES # (MANUAL) 0.6 10^3/uL (0.1-1.4); ABSOLUTE NEUTROPHILS# (MANUAL) 9.6 10^3/uL (1.7-8.2); BASOPHILS % (MANUAL) 0 % (0-2); EOSINOPHILS % (MANUAL) 0 % (0-6); LYMPHOCYTES % (MANUAL) 8 % (13-45); MONOCYTES % (MANUAL) 5 % (3-13); SEGMENTED NEUTROPHILS % (MAN) 86 % (42-78); TOTAL CELLS COUNTED 100
[2018-10-19 06:45] LABS: OVALOCYTES 1+; PLATELET CLUMPS PRESENT; PLATELET COMMENT ADEQUATE; STOMATOCYTES 1+
[2018-10-19 06:46] LABS: HYPOCHROMASIA 2+; PLATELET COUNT 238 10^3/uL (150-450); POIKILOCYTOSIS 1+
[2018-10-19] MEDS: DEXTROSE 40% GEL 15 GM TUBE PO PRN (07:36)
[2018-10-19] MEDS: INSULIN LISPRO 100 UNIT/ML 3 ML VIAL SUBCUT SCH ×4 (07:41→22:08)
[2018-10-19] MEDS: INSULIN GLARGINE,HUM.REC.ANLOG 1,000 UNIT/10 ML VIAL SUBCUT SCH ×2 (09:44→22:08)
[2018-10-19] MEDS: DOCUSATE SODIUM 100 MG CAPSULE PO SCH (09:44)
[2018-10-19] MEDS: FUROSEMIDE 20 MG TABLET PO SCH ×2 (09:48→17:44)
[2018-10-19] MEDS: VENLAFAXINE HCL 75 MG CAP.SR.24H PO SCH (09:48)
[2018-10-19] MEDS: CHOLECALCIFEROL (D3) 1,000 UNIT TABLET PO SCH (09:48)
[2018-10-19] MEDS: FAMOTIDINE 20 MG TABLET PO SCH ×2 (09:48→22:09)
[2018-10-19] MEDS: PREDNISONE 20 MG TABLET PO SCH (09:48)
[2018-10-19] MEDS: DILTIAZEM HCL 120 MG CAP.SR.24H PO SCH (09:48)
[2018-10-19] MEDS: FERROUS SULFATE 325 MG TABLET PO SCH (09:48)
[2018-10-19] MEDS: ENOXAPARIN SODIUM INJ 40 MG/0.4 ML DISP.SYRIN SUBCUT SCH (09:49)
--- NOTE | 2018-10-19 12:51 | PDOC PROGRESS REPORT ---
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 She presented to [facility] for weakness and difficulty breathing. She was admitted to the hospitalist service for a COPD exacerbation and healthcare associated PNA. The patient was initially placed ceftriaxone on for antibiotic coverage, expanded to vancomycin and cefepime for healthcare associated PNA. The patient was seen this afternoon on rounds, she is sitting in the bedside recliner on supplemental oxygen via nasal cannula. She is alert and oriented x3, able to answer all questions appropriately but frequently pauses in between sentences to catch her breath. Upon exam, mild wheezing can be auscultated in LLL lung field, it continues to improve but remains present. There is no evidence of central or peripheral cyanosis. Pulses are palpable in the upper and lower extremities. There is no evidence of peripheral edema. Continue nebulizers, steroids and antibiotics. Patient is not appropriate for discharge at this time. 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 10/11/18: Patient seen and examined. She is improved. She is on oxygen via nasal cannula. She has home oxygen at 2 to 3 L/min chronically. She is not far from her baseline. She had an episode of hypoglycemia this morning now it resolved. 10/12/2018: Patient is doing well. She is feeling better. She mentioned that her diarrhea has resolved. Her heart rate was slightly elevated but she just received breathing treatment. She mentioned that she is okay with palliative care but she wants to stay in the hospital. She is stable on 4 L of oxygen via nasal cannula. 10/13/2018: Patient opted for hospice care. She wants to go to [facility] with hospice. He is clinically stable. 10/14/2018: Continues to be stable on nasal cannula oxygen. She is tolerating diet. She is clinically stable. Awaiting placement to [facility] with hospice. 10/15/2018: Patient stable on nasal cannula oxygen. She is tolerating diet. Still awaiting placement with hospice. She does me that she is losing sense of taste and wants to have medication to restore her taste. 10/16/2018: Clinically stable. No acute issues. Still waiting placement with hospice. 10/17/2018 patient is stable afebrile no acute events in the last 24 hours. Waiting for placement as per the patient she is going to assisted living tomorrow. 10/18/2018-recent is comfortably sleeping in the bed. Afebrile. No acute events in the last 24 hours. Waiting for placement. 10/19/2018-patient's blood sugar dropped to 30s this morning. Patient compl aining that she did not receive enough snacks yesterday. Her Lantus was increased to 40 twice a day yesterday because blood sugar was around 450 yesterday evening. As per the patient she received his strawberry milkshake and snacks from a friend that is why the blood sugars are elevated. She is also concerned about the pulmonary nodule in the chest x-ray she is requesting the CT chest to get further information. Reason For Visit: COPD EXACERBATION Physical Exam Vital Signs: Temp Pulse Resp BP Pulse Ox 97.4 F 95 14 167/71 H 96 10/19/18 04:48 10/19/18 11:08 10/19/18 11:08 10/19/18 04:48 10/19/18 11:08 Intake & Output 10/18/18 10/19/18 10/20/18 06:59 06:59 06:59 Intake Total 2507.2 1391.2 Balance 2507.2 1391.2 Weight 53.2 kg 68.3 kg General appearance: PRESENT: no acute distress Head exam: PRESENT: atraumatic Eye exam: PRESENT: PERRLA Mouth exam: PRESENT: moist, tongue midline Neck exam: ABSENT: carotid bruit, JVD, lymphadenopathy, thyromegaly Respiratory exam: PRESENT: decreased breath sounds Cardiovascular exam: PRESENT: tachycardia GI/Abdominal exam: PRESENT: normal bowel sounds, soft. ABSENT: distended, guarding, mass, organolmegaly, rebound, tenderness Rectal exam: PRESENT: deferred Extremities exam: PRESENT: full ROM. ABSENT: calf tenderness, clubbing, pedal edema Neurological exam: PRESENT: alert, awake, oriented to person, oriented to place, oriented to time, oriented to situation, CN II-XII grossly intact. ABSENT: motor sensory deficit Psychiatric exam: PRESENT: appropriate affect, normal mood. ABSENT: homicidal ideation, suicidal ideation Results Laboratory Results: 10/19/18 05:45 10/19/18 05:45 10/19/18 10/19/18 05:45 05:45 WBC 11.2 H RBC 4.17 Hgb 10.9 L Hct 34.6 L MCV 83 MCH 26.0 L MCHC 31.3 L RDW 21.2 H Plt Count 238 Seg Neutrophils % Not Reportable Lymphocytes % Not Reportable Monocytes % Not Reportable Eosinophils % Not Reportable Basophils % Not Reportable Absolute Neutrophils Not Reportable Absolute Lymphocytes Not Reportable Absolute Monocytes Not Reportable Absolute Eosinophils Not Reportable Absolute Basophils Not Reportable Sodium 141.9 Potassium 3.3 L Chloride 96 L Carbon Dioxide 41 H* Anion Gap 5 BUN 27 H Creatinine 1.22 Est GFR ( Amer) 52 L Est GFR (Non-Af Amer) 43 L Glucose 106 Calcium 8.6 Magnesium 1.7 Total Bilirubin 0.3 AST 26 ALT 48 Alkaline Phosphatase 62 Total Protein 5.3 L Albumin 2.9 L 10/07/18 10/07/18 10/07/18 11:42 11:42 18:45 Creatine Kinase 36 Troponin I 0.424 0.302 NT-Pro-B Natriuret Pep 7450 H 10/08/18 11:29 Creatine Kinase Troponin I 0.143 NT-Pro-B Natriuret Pep Impressions: Chest X-Ray 10/18/18 12:30 IMPRESSION: Cannot exclude right pulmonary nodule. No infiltrate is present. Assessment and Plan - Diagnosis (1) Acute respiratory failure with hypoxia and hypercapnia Is this a current diagnosis for this admission?: Yes Plan: Due to COPD exacerbation healthcare associated pneumonia. CXR Persistent recurrent bibasilar airspace opacities. Antibiotic coverage with vancomycin and cefepime Duo nebs, BiPAP as needed, IV steroids, pulmonary toileting Cultures pending Sputum cultures not yet collected 10/11/2018: Currently improved and on 3-4 L of oxygen now. 10/12/2018: Stable 4 L nasal cannula oxygen. 10/17/2018-patient's pulse ox today is 97% on 3 L. Communicating well. On examination chest bilateral entry still severely decreased, bilateral mild wh eezing present. 10/18/2018-patient is comfortably sleeping in the bed she was admitted with acute respiratory failure with hypoxia and hypercapnia pulse ox today is 98% on 3 L. No complaints. Blood cultures are negative. Presently on prednisone 40 mg p.o. daily and levo floxacillin. Plan is to continue the present management. 10/[id number]-nget-old female admitted with acute respiratory failure with hypoxia and hypercapnia. Pulse ox today is 86% on 3 L. Chest bilateral entry was decreased no wheezing no crepitations are present. (2) Acute kidney injury superimposed on CKD Is this a current diagnosis for this admission?: Yes Plan: Worsening 1.35-->1.46 Patient able to make urine - nonoliguric Creatinine range in 2019 has been 0.7-1.8 Likely prerenal given her story of 24-36 hours at home on her ground prior to coming to the hospital Avoid nephrotoxic agents. Monitor volume status and electrolytes. 10/11/2018: Currently creatinine improved to 1.12. Continue to monitor renal function. 10/12/2018: Creatinine is 1.33, continue to monitor. 10/17/2018-patient admitted with acute kidney injury superimposed on CKD. On admission serum creatinine is 1.35 and the latest creatinine is 1.21, baseline creatinine is around 1.2 Arya resolving. 10/18/2018-patient was admitted with acute kidney injury superimposed on CKD t keshav's creatinine is 1.21 improved. On admission it is 1.35. ARYA resolving. 10/19/2018-patient was admitted with ARYA superimposed on chronic kidney disease. Admission creatinine is 1.35 today is 1.22. Close to her baseline. (3) Pneumonia Qualifiers: Pneumonia type: due to unspecified organism Laterality: unspecified lateral ity Lung location: unspecified part of lung Qualified Code(s): J18.9 - Pneumonia, unspecified organism Is this a current diagnosis for this admission?: Yes Plan: Recent hospitalization 1 month ago Will treat her for healthcare associated PNA Switch from Rocephin to Vanc/cefepime Blood cultures pending Will order sputum culture 10/11/2018: Continue current medications. Switch IV Solu-Medrol to p.o. prednisone. 10/12/2018: Switch to p.o. Levaquin and stop Vanco/cefepime 10/17/2018-patient is presently on po levo floxacillin and p.o. prednisone she was admitted with healthcare associated pneumonia. Blood cultures are negative. Most likely combination of gram-positive gram-negative organisms are responsible. 10/18/2018-patient is presently p.o. levo floxacillin. Afebrile. Blood cultures are negative. Unable to collect sputum culture. Plan is to continue the antibiotic at least another day or 2. 10/19/2018-patient is presently on p.o. levofloxacin afebrile. Blood cultures a re negative. Is to discontinue antibiotic therapy from today. (4) Hypertensive urgency Is this a current diagnosis for this admission?: Yes Plan: Resolved BP currently controlled ARYA and elevated troponins. Resume home dose cardizem PRN IV hydralazine SBP > 150. 10/11/2018: Continue current medications. Monitor blood pressure. 10/17/2018-patient's latest blood pressure is 164/78 moderately controlled. Plan is to continue the present management. 10/18/2018-patient blood pressure today's 133/55 stable. Plan is to continue the present management Cardizem 120 mg p.o. daily and she is also on IV hydralazine as needed. 10/19/2018-patient blood pressure today is 167/61. Presently on Cardizem 120 mg p.o. daily and also on IV hydralazine on as-needed basis. Plan is to continue the present management. (5) CHF exacerbation Qualifiers: Heart failure type: diastolic Qualified Code(s): I50.33 - Acute on chronic diastolic (congestive) heart failure Is this a current diagnosis for this admission?: No Plan: Likely due to COPD exacerbation/pneumonia. BNP 7450 up from 1400 on 08/29/2018. 01/30/2017 2D echo shows LVH, Grade 2/4 diastolic dysfunction. LVEF 60%. Cardiac Diet Continue scheduled lasix 10/11/2018: Continue current treatments. Monitor weight daily. Continue diuresis. 10/12/2018: Continue current management 10/17/2018-patient is euvolemic. Patient's EF is 60% most likely she has moderate diastolic dysfunction which was chronic. Plan is to decrease the Lasix from 20 twice daily to once a day. 2018-patient recent echo suggested EF of 60% most likely she has chronic diastolic heart failure presently on Lasix 20 mg p.o. twice daily plan is to continue the present management. - Time Time Spent with patient: 15-24 minutes Medications reviewed and adjusted accordingly: Yes Anticipated discharge: SNF
--- NOTE | 2018-10-19 17:39 | RADIOLOGY REPORT (SQ) ---
EXAM DESCRIPTION: CT CHEST WITH COMPLETED DATE/TIME: 10/19/2018 5:27 pm REASON FOR STUDY: pulm nodule E11.9 TYPE 2 DIABETES MELLITUS WITHOUT COMPLICATIONS COMPARISON: Chest radiograph TECHNIQUE: CT scan of the chest performed using helical scanning technique with dynamic intravenous contrast injection. Images reviewed with lung, soft tissue and bone windows. Reconstructed coronal and sagittal MPR and MIP images reviewed. All images stored on PACS. All CT scanners at this facility use dose modulation, iterative reconstruction, and/or weight based d osing when appropriate to reduce radiation dose to as low as reasonably achievable (ALARA). [facility]: Dose Right [facility]: CareDose [facility]: Dose Right [facility]: Teradose 4D [facility]: Basis Technology CONTRAST TYPE AND DOSE: contrast/concentration: Isovue 350.00 mg/ml; Total Contrast Delivered: 80.0 ml; Total Saline Delivered: 30.7 ml RENAL FUNCTION: 1.22 creatinine RADIATION DOSE: CT Rad equipment meets quality standard of care and radiation dose reduction techniq ues were employed. CTDIvol: 9.0 mGy. DLP: 373 mGy-cm. . LIMITATIONS: None. FINDINGS: LUNGS AND PLEURA: There is scattered sub 3 mm nodules throughout the lungs. At the right base there is a 1.2 cm solid pulmonary nodule. No effusions. No pneumothorax. HILAR AND MEDIASTINAL STRUCTURES: No identified masses or abnormal nodes. HEART AND VASCULAR STRUCTURES: No aneurysm or dissection. No central pulmonary emboli. No pericardi al effusion. HARDWARE: None in the chest. UPPER ABDOMEN: Multiple renal cysts. THYROID AND OTHER SOFT TISSUES: No masses. No adenopathy. BONES: No significant finding. OTHER: No other significant finding. IMPRESSION: Scattered sub- 3 mm pulmonary nodules throughout the lungs. There is a 1.2 cm solid pul monary nodule at the right base. COMMENT: Recommend PET-CT. TECHNICAL DOCUMENTATION: JOB ID: [id number] Quality ID # [id number]: Final reports with documentation of one or more dose reduction techniques (e.g., Au tomated exposure control, adjustment of the mA and/or kV according to patient size, use of iterative reconstruction technique) 2010 [employer]- All Rights Reserved Reading location - IP/workstation name: [email or web address]
[2018-10-19] MEDS: PRAMIPEXOLE DI-HCL 0.5 MG TABLET PO SCH (22:09)
[2018-10-19] MEDS: ATORVASTATIN CALCIUM 40 MG TABLET PO SCH (22:09)
[2018-10-19] MEDS: PREGABALIN 100 MG CAPSULE PO SCH (22:09)
[2018-10-19] MEDS: POTASSIUM CHLORIDE 10 MEQ CAPSULE.ER PO SCH (22:09)
[2018-10-19] MEDS: THIAMINE HCL 100 MG, FOLIC ACID 1 MG in NORMAL SALINE 250 ML IV SCH (22:09)
[2018-10-20] MEDS: LEVALBUTEROL HCL NEB 1.25 MG/3 ML AMPUL NEB SCH ×6 (00:28→19:31)
[2018-10-20 06:31] LABS: ALANINE AMINOTRANSFERASE 46 U/L (9-52); ALKALINE PHOSPHATASE 65 U/L (38-126); ANION GAP 9 (5-19); ASPARTATE AMINO TRANSFERASE 38 U/L (14-36); BILIRUBIN,DIRECT 0.3 mg/dL (0.0-0.4); BILIRUBIN,TOTAL 0.5 mg/dL (0.2-1.3); BLOOD UREA NITROGEN 23 mg/dL (7-20); CALCIUM 8.5 mg/dL (8.4-10.2); CARBON DIOXIDE 37 mmol/L (22-30); CHLORIDE 95 mmol/L (98-107); GLUCOSE 331 mg/dL (75-110); POTASSIUM 3.5 mmol/L (3.6-5.0); SODIUM 140.8 mmol/L (137-145); TOTAL PROTEIN 5.6 g/dL (6.3-8.2)
[2018-10-20 07:03] LABS: HEMATOCRIT 33.9 % (36.0-47.0); HEMOGLOBIN 10.6 g/dL (12.0-15.5); MEAN CORPUSCULAR HEMOGLOBIN 26.1 pg (27.0-33.4); MEAN CORPUSCULAR HGB CONC 31.2 g/dL (32.0-36.0); MEAN CORPUSCULAR VOLUME 84 fl (80-97); PLATELET COUNT 170 10^3/uL (150-450); RED BLOOD COUNT 4.05 10^6/uL (3.72-5.28); RED CELL DISTRIBUTION WIDTH 21.7 % (11.5-14.0); WHITE BLOOD COUNT 12.1 10^3/uL (4.0-10.5)
[2018-10-20 07:18] LABS: ABSOLUTE LYMPHOCYTES# (MANUAL) 1.1 10^3/uL (0.5-4.7); ABSOLUTE MONOCYTES # (MANUAL) 0.2 10^3/uL (0.1-1.4); ABSOLUTE NEUTROPHILS# (MANUAL) 10.5 10^3/uL (1.7-8.2); BASOPHILS % (MANUAL) 0 % (0-2); EOSINOPHILS % (MANUAL) 2 % (0-6); LYMPHOCYTES % (MANUAL) 9 % (13-45); METAMYELOCYTES % (MANUAL) 2 % (0); MONOCYTES % (MANUAL) 2 % (3-13); SEGMENTED NEUTROPHILS % (MAN) 85 % (42-78); TOTAL CELLS COUNTED 100
[2018-10-20 07:20] LABS: ANISOCYTOSIS 3+; OVALOCYTES 1+; POIKILOCYTOSIS SLIGHT; POLYCHROMASIA SLIGHT; TEAR DROP CELLS SLIGHT; TOXIC GRANULATION SLIGHT
[2018-10-20 07:21] LABS: PLATELET COMMENT ADEQUATE
[2018-10-20] MEDS: INSULIN LISPRO 100 UNIT/ML 3 ML VIAL SUBCUT SCH ×4 (08:28→21:52)
[2018-10-20] MEDS: ACETAMINOPHEN 325 MG TABLET PO PRN (08:31)
[2018-10-20] MEDS ORDERED: PROMETHAZINE HCL INJ 25 MG/1 ML VIAL IV PRN (09:30)
[2018-10-20] MEDS: DOCUSATE SODIUM 100 MG CAPSULE PO SCH (10:38)
[2018-10-20] MEDS: POTASSIUM CHLORIDE 10 MEQ CAPSULE.ER PO SCH ×2 (11:37→21:53)
[2018-10-20] MEDS: VENLAFAXINE HCL 75 MG CAP.SR.24H PO SCH (11:37)
[2018-10-20] MEDS: FUROSEMIDE 20 MG TABLET PO SCH ×2 (11:38→21:41)
[2018-10-20] MEDS: DILTIAZEM HCL 120 MG CAP.SR.24H PO SCH (11:39)
[2018-10-20] MEDS: FERROUS SULFATE 325 MG TABLET PO SCH (11:40)
[2018-10-20] MEDS: INSULIN GLARGINE,HUM.REC.ANLOG 1,000 UNIT/10 ML VIAL SUBCUT SCH ×2 (11:44→21:51)
[2018-10-20] MEDS: ENOXAPARIN SODIUM INJ 40 MG/0.4 ML DISP.SYRIN SUBCUT SCH (11:49)
[2018-10-20] MEDS: PREDNISONE 20 MG TABLET PO SCH (11:51)
[2018-10-20] MEDS: CHOLECALCIFEROL (D3) 1,000 UNIT TABLET PO SCH (11:52)
[2018-10-20] MEDS: FAMOTIDINE 20 MG TABLET PO SCH ×2 (11:52→21:53)
--- NOTE | 2018-10-20 12:14 | PDOC PROGRESS REPORT ---
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 She presented to [facility] for weakness and difficulty breathing. She was admitted to the hospitalist service for a COPD exacerbation and healthcare associated PNA. The patient was initially placed ceftriaxone on for antibiotic coverage, expanded to vancomycin and cefepime for healthcare associated PNA. The patient was seen this afternoon on rounds, she is sitting in the bedside recliner on supplemental oxygen via nasal cannula. She is alert and oriented x3, able to answer all questions appropriately but frequently pauses in between sentences to catch her breath. Upon exam, mild wheezing can be auscultated in LLL lung field, it continues to improve but remains present. There is no evidence of central or peripheral cyanosis. Pulses are palpable in the upper and lower extremities. There is no evidence of peripheral edema. Continue nebulizers, steroids and antibiotics. Patient is not appropriate for discharge at this time. Expresses desire to transition to assisted living/[facility] once she is rehabilitated. 10/11/18: Patient seen and examined. She is improved. She is on oxygen via nasal cannula. She has home oxygen at 2 to 3 L/min chronically. She is not far from her baseline. She had an episode of hypoglycemia this morning now it resolved. 10/12/2018: Patient is doing well. She is feeling better. She mentioned that her diarrhea has resolved. Her heart rate was slightly elevated but she just received breathing treatment. She mentioned that she is okay with palliative care but she wants to stay in the hospital. She is stable on 4 L of oxygen via nasal cannula. 10/13/2018: Patient opted for hospice care. She wants to go to [facility] with hospice. He is clinically stable. 10/14/2018: Continues to be stable on nasal cannula oxygen. She is tolerating diet. She is clinically stable. Awaiting placement to [facility] with hospice. 10/15/2018: Patient stable on nasal cannula oxygen. She is tolerating diet. Still awaiting placement with hospice. She does me that she is losing sense of taste and wants to have medication to restore her taste. 10/16/2018: Clinically stable. No acute issues. Still waiting placement with hospice. 10/17/2018 patient is stable afebrile no acute events in the last 24 hours. Waiting for placement as per the patient she is going to assisted living tomorrow. 10/18/2018-recent is comfortably sleeping in the bed. Afebrile. No acute events in the last 24 hours. Waiting for placement. 10/19/2018-patient's blood sugar dropped to 30s this morning. Patient compl aining that she did not receive enough snacks yesterday. Her Lantus was increased to 40 twice a day yesterday because blood sugar was around 450 yesterday evening. As per the patient she received his strawberry milkshake and snacks from a friend that is why the blood sugars are elevated. She is also concerned about the pulmonary nodule in the chest x-ray she is requesting the CT chest to get further information. 10/20/2018-no acute events in the last 24 hours. PPD was contributed after 7 PM today. Patient may be ready to go to the rehab facility tomorrow. Comfortably in the bed communicating well. CT chest was done it shows scattered pulmonary nodules. Recommendation from the radiologist to to arrange for PET scan. To request for pulmonary consult today. Reason For Visit: COPD EXACERBATION Physical Exam Vital Signs: Temp Pulse Resp BP Pulse Ox 98.5 F 93 15 171/80 H 96 10/19/18 20:38 10/20/18 11:53 10/20/18 11:53 10/19/18 20:38 10/20/18 11:53 Intake & Output 10/19/18 10/20/18 10/21/18 06:59 06:59 06:59 Intake Total 1391.2 961.2 Balance 1391.2 961.2 Weight 68.3 kg 68.2 kg General appearance: PRESENT: no acute distress Head exam: PRESENT: atraumatic Eye exam: PRESENT: PERRLA Mouth exam: PRESENT: moist, tongue midline Teeth exam: PRESENT: poor dentation Neck exam: ABSENT: carotid bruit, JVD, lymphadenopathy, thyromegaly Respiratory exam: PRESENT: decreased breath sounds Cardiovascular exam: PRESENT: RRR. ABSENT: diastolic murmur, rubs, systolic murmur GI/Abdominal exam: PRESENT: normal bowel sounds, soft. ABSENT: distended, guarding, mass, organolmegaly, rebound, tenderness Rectal exam: PRESENT: deferred Neurological exam: PRESENT: alert, awake, oriented to person, oriented to place, oriented to time, oriented to situation, CN II-XII grossly intact. ABSENT: motor sensory deficit Psychiatric exam: PRESENT: appropriate affect, normal mood. ABSENT: homicidal ideation, suicidal ideation Results Laboratory Results: 10/20/18 04:40 10/20/18 04:40 10/20/18 10/20/18 04:40 04:40 WBC 12.1 H RBC 4.05 Hgb 10.6 L Hct 33.9 L MCV 84 MCH 26.1 L MCHC 31.2 L RDW 21.7 H Plt Count 170 Seg Neutrophils % Not Reportable Lymphocytes % Not Reportable Monocytes % Not Reportable Eosinophils % Not Reportable Basophils % Not Reportable Absolute Neutrophils Not Reportable Absolute Lymphocytes Not Reportable Absolute Monocytes Not Reportable Absolute Eosinophils Not Reportable Absolute Basophils Not Reportable Sodium 140.8 Potassium 3.5 L Chloride 95 L Carbon Dioxide 37 H Anion Gap 9 BUN 23 H Creatinine 1.10 Est GFR ( Amer) 59 L Est GFR (Non-Af Amer) 49 L Glucose 331 H Calcium 8.5 Magnesium 1.8 Total Bilirubin 0.5 AST 38 H ALT 46 Alkaline Phosphatase 65 Total Protein 5.6 L Albumin 3.0 L 10/07/18 10/07/18 10/07/18 11:42 11:42 18:45 Creatine Kinase 36 Troponin I 0.424 0.302 NT-Pro-B Natriuret Pep 7450 H 10/08/18 11:29 Creatine Kinase Troponin I 0.143 NT-Pro-B Natriuret Pep Impressions: Chest X-Ray 10/18/18 12:30 IMPRESSION: Cannot exclude right pulmonary nodule. No infiltrate is present. Chest CT 10/19/18 00:00 IMPRESSION: Scattered sub- 3 mm pulmonary nodules throughout the lungs. There is a 1.2 cm solid pulmonary nodule at the right base. Assessment and Plan - Diagnosis (1) Acute respiratory failure with hypoxia and hypercapnia Is this a current diagnosis for this admission?: Yes Plan: Due to COPD exacerbation healthcare associated pneumonia. CXR Persistent recurrent bibasilar airspace opacities. Antibiotic coverage with vancomycin and cefepime Duo nebs, BiPAP as needed, IV steroids, pulmonary toileting Cultures pending Sputum cultures not yet collected 10/11/2018: Currently improved and on 3-4 L of oxygen now. 10/12/2018: Stable 4 L nasal cannula oxygen. 10/17/2018-patient's pulse ox today is 97% on 3 L. Communicating well. On examination chest bilateral entry still severely decreased, bilateral mild wheezing present. 10/18/2018-patient is comfortably sleeping in the bed she was admitted with acute respiratory failure with hypoxia and hypercapnia pulse ox today is 98% on 3 L. No complaints. Blood cultures are negative. Presently on prednisone 40 mg p.o. daily and levo floxacillin. Plan is to continue the present management. 10/19/[id number]-vnen-old female admitted with acute respiratory failure with hypoxia and hypercapnia. Pulse ox today is 96% on 3 L. Chest bilateral entry was decreased no wheezing no crepitations are present. 10/20/[id number]-aqfj-old female admitted with acute respiratory failure with hypoxia and hypercapnia. Pulse ox is 94% on 3 L. Portably in the bed communicating well. On examination chest bilateral it was decreased no wheezing no crepitations are present. (2) Acute kidney injury superimposed on CKD Is this a current diagnosis for this admission?: Yes Plan: Worsening 1.35-->1.46 Patient able to make urine - nonoliguric Creatinine range in 2019 has been 0.7-1.8 Likely prerenal given her story of 24-36 hours at home on her ground prior to coming to the hospital Avoid nephrotoxic agents. Monitor volume status and electrolytes. 10/11/2018: Currently creatinine improved to 1.12. Continue to monitor renal function. 10/12/2018: Creatinine is 1.33, continue to monitor. 10/17/2018-patient admitted with acute kidney injury superimposed on CKD. On admission serum creatinine is 1.35 and the latest creatinine is 1.21, baseline creatinine is around 1.2 Arya resolving. 10/18/2018-patient was admitted with acute kidney injury superimposed on CKD today's creatinine is 1.21 improved. On admission it is 1.35. ARYA resolving. 10/19/2018-patient was admitted with ARYA superimposed on chronic kidney disease. Admission creatinine is 1.35 today is 1.22. Close to her baseline. 10/20/2018-patient was admitted with ARYA superimposed on CKD. Latest creatinine is 1.01 acute kidney injury most likely secondary to prerenal causes resolved. Her baseline creatinine is around 1.1. (3) Pneumonia Qualifiers: Pneumonia type: due to unspecified organism Laterality: unspecified laterality Lung location: unspecified part of lung Qualified Code(s): J18.9 - Pneumonia, unspecified organism Is this a current diagnosis for this admission?: Yes Plan: Recent hospitalization 1 month ago Will treat her for healthcare associated PNA Switch from Rocephin to Vanc/cefepime Blood cultures pending Will order sputum culture 10/11/2018: Continue current medications. Switch IV Solu-Medrol to p.o. prednisone. 10/12/2018: Switch to p.o. Levaquin and stop Vanco/cefepime 10/17/2018-patient is presently on po levo floxacillin and p.o. prednisone she was admitted with healthcare associated pneumonia. Blood cultures are negative. Most likely combination of gram-positive gram-negative organisms are responsible. 10/18/2018-patient is presently p.o. levo floxacillin. Afebrile. Blood cultures are negative. Unable to collect sputum culture. Plan is to continue the antibiotic at least another day or 2. 10/19/2018-patient is presently on p.o. levofloxacin afebrile. Blood cultures are negative. Is to discontinue antibiotic therapy from today. 10/20/2018-patient is admitted with pneumonia most likely healthcare associated pneumonia. Probably combination of gram-positive gram-negative organisms are responsible. Blood cultures are negative. Antibiotics are discontinued from yesterday. Afebrile. (4) Hypertensive urgency Is this a current diagnosis for this admission?: Yes Plan: Resolved BP currently controlled ARYA and elevated troponins. Resume home dose cardizem PRN IV hydralazine SBP > 150. 10/11/2018: Continue current medications. Monitor blood pressure. 10/17/2018-patient's latest blood pressure is 164/78 moderately controlled. Plan is to continue the present management. 10/18/2018-patient blood pressure today's 133/55 stable. Plan is to continue the present management Cardizem 120 mg p.o. daily and she is also on IV hydralazine as needed. 10/19/2018-patient blood pressure today is 167/61. Presently on Cardizem 120 mg p.o. daily and also on IV hydralazine on as-needed basis. Plan is to continue the present management. 10/20/2018-patient blood pressure today is 171/80. Presently on Cardizem 120 mg p.o. daily and hydralazine IV PRN. to Add amlodipine 5 mg p.o. daily to the medication. (5) CHF exacerbation Qualifiers: Heart failure type: diastolic Qualified Code(s): I50.33 - Acute on chronic diastolic (congestive) heart failure Is this a current diagnosis for this admission?: No Plan: Likely due to COPD exacerbation/pneumonia. BNP 7450 up from 1400 on 08/29/2018. 01/30/2017 2D echo shows LVH, Grade 2/4 diastolic dysfunction. LVEF 60%. Cardiac Diet Continue scheduled lasix 10/11/2018: Continue current treatments. Monitor weight daily. Continue di uresis. 10/12/2018: Continue current management 10/17/2018-patient is euvolemic. Patient's EF is 60% most likely she has moderate diastolic dysfunction which was chronic. Plan is to decrease the Lasix from 20 twice daily to once a day. 10/18/2018-patient recent echo suggested EF of 60% most likely she has chronic diastolic heart failure presently on Lasix 20 mg p.o. daily plan is to continue the present management. 10/20/2018-patient has chronic diastolic heart failure. Presently on Lasix 20 mg p.o. daily. Plan is to continue the management. - Time Time Spent with patient: 15-24 minutes Medications reviewed and adjusted accordingly: Yes Anticipated discharge: SNF
[2018-10-20] MEDS: AMLODIPINE BESYLATE 5 MG TABLET PO SCH (19:18)
[2018-10-20] MEDS: ATORVASTATIN CALCIUM 40 MG TABLET PO SCH (21:53)
[2018-10-20] MEDS: PRAMIPEXOLE DI-HCL 0.5 MG TABLET PO SCH (21:53)
[2018-10-20] MEDS: PREGABALIN 100 MG CAPSULE PO SCH (21:53)
[2018-10-20] MEDS ORDERED: FOLIC ACID 1 MG TABLET PO SCH (22:00)
[2018-10-20] MEDS ORDERED: THIAMINE HCL 100 MG TABLET PO SCH (22:00)
[2018-10-20] MEDS ORDERED: INSULIN LISPRO 100 UNIT/ML 3 ML VIAL SUBCUT ONE (23:45)
[2018-10-21] MEDS: LEVALBUTEROL HCL NEB 1.25 MG/3 ML AMPUL NEB SCH ×4 (00:06→12:01)
[2018-10-21] MEDS: INSULIN LISPRO 100 UNIT/ML 3 ML VIAL SUBCUT SCH ×2 (08:00→11:55)
[2018-10-21] MEDS: DOCUSATE SODIUM 100 MG CAPSULE PO SCH (09:41)
[2018-10-21] MEDS: ENOXAPARIN SODIUM INJ 40 MG/0.4 ML DISP.SYRIN SUBCUT SCH ×2 (09:42→10:06)
[2018-10-21] MEDS: VENLAFAXINE HCL 75 MG CAP.SR.24H PO SCH (10:00)
[2018-10-21] MEDS: FERROUS SULFATE 325 MG TABLET PO SCH (10:00)
[2018-10-21] MEDS ORDERED: INSULIN GLARGINE,HUM.REC.ANLOG 1,000 UNIT/10 ML VIAL SUBCUT SCH (10:00)
[2018-10-21] MEDS: DILTIAZEM HCL 120 MG CAP.SR.24H PO SCH (10:00)
[2018-10-21] MEDS: POTASSIUM CHLORIDE 10 MEQ CAPSULE.ER PO SCH (10:00)
[2018-10-21] MEDS: FUROSEMIDE 20 MG TABLET PO SCH (10:00)
[2018-10-21] MEDS: FAMOTIDINE 20 MG TABLET PO SCH (10:01)
[2018-10-21] MEDS: PREDNISONE 20 MG TABLET PO SCH (10:01)
[2018-10-21] MEDS: AMLODIPINE BESYLATE 5 MG TABLET PO SCH (10:01)
[2018-10-21] MEDS: CHOLECALCIFEROL (D3) 1,000 UNIT TABLET PO SCH (10:10)
[2018-10-21 12:00] VITALS: BP 164/83
--- NOTE | 2018-10-21 12:56 | PDOC TRANSFER SUMMARY ---
General - Admit/Disc Date/PCP Admission Date/Primary Care Provider: 10/07/18 17:37 BOBBI GARCIA PA-C Discharge Date: 10/21/18 - Discharge Diagnosis (1) Acute respiratory failure with hypoxia and hypercapnia Is this a current diagnosis for this admission?: Yes Summary: Due to COPD exacerbation healthcare associated pneumonia. CXR Persistent recurrent bibasilar airspace opacities. Antibiotic coverage with vancomycin and cefepime Duo nebs, BiPAP as needed, IV steroids, pulmonary toileting Cultures pending Sputum cultures not yet collected 10/11/2018: Currently improved and on 3-4 L of oxygen now. 10/12/2018: Stable 4 L nasal cannula oxygen. 10/17/2018-patient's pulse ox today is 97% on 3 L. Communicating well. On examination chest bilateral entry still severely decreased, bilateral mild wheezing present. 10/18/2018-patient is comfortably sleeping in the bed she was admitted with acute respiratory failure with hypoxia and hypercapnia pulse ox today is 98% on 3 L. No complaints. Blood cultures are negative. Presently on prednisone 40 mg p.o. daily and levo floxacillin. Plan is to continue the present management. 10/19/[id number]-ztsz-old female admitted with acute respiratory failure with hypoxia and hypercapnia. Pulse ox today is 96% on 3 L. Chest bilateral entry was decreased no wheezing no crepitations are present. 10/20/[id number]-dlcd-old female admitted with acute respiratory failure with hypoxia and hypercapnia. Pulse ox is 94% on 3 L. comfortably in the bed communicating well. On examination chest bilateral it was decreased no wheezing no crepitations are present. 10/21/2018-admitted for acute respiratory failure with hypoxia and hypercapnia patient's pulse ox today is 88% on 3 L. On examination chest bilateral entry was decreased no wheezing no crepitations are present. CT chest was done found to have a multiple lung nodules patient is to follow-up with [facility] as an outpatient and she may need a PET scan as an outpatient. Patient is aware of the findings she agreed/prefered to follow-up with [facility] as an outpatient. (2) Acute kidney injury superimposed on CKD Is this a current diagnosis for this admission?: Yes Summary: Worsening 1.35-->1.46 Patient able to make urine - nonoliguric Creatinine range in 2019 has been 0.7-1.8 Likely prerenal given her story of 24-36 hours at home on her ground prior to coming to the hospital Avoid nephrotoxic agents. Monitor volume status and electrolytes. 10/11/2018: Currently creatinine improved to 1.12. Continue to monitor renal function. 10/12/2018: Creatinine is 1.33, continue to monitor. 10/17/2018-patient admitted with acute kidney injury superimposed on CKD. On admission serum creatinine is 1.35 and the latest creatinine is 1.21, baseline creatinine is around 1.2 Arya resolving. 10/18/2018-patient was admitted with acute kidney injury superimposed on CKD today's creatinine is 1.21 improved. On admission it is 1.35. ARYA resolving. 10/19/2018-patient was admitted with ARYA superimposed on chronic kidney disease. Admission creatinine is 1.35 today is 1.22. Close to her baseline. 10/20/2018-patient was admitted with ARYA superimposed on CKD. Latest creatinine is 1.01 acute kidney injury most likely secondary to prerenal causes resolved. Her baseline creatinine is around 1.1. 10/21/2018-this 72-year-old female admitted with ARYA superimposed on CKD. Latest creatinine is 1.1. Acute kidney injury due to prerenal causes resolved. (3) Pneumonia Is this a current diagnosis for this admission?: Yes Summary: Recent hospitalization 1 month ago Will treat her for healthcare associated PNA Switch from Rocephin to Vanc/cefepime Blood cultures pending Will order sputum culture 10/11/2018: Continue current medications. Switch IV Solu-Medrol to p.o. prednisone. 10/12/2018: Switch to p.o. Levaquin and stop Vanco/cefepime 10/17/2018-patient is presently on po levo floxacillin and p.o. prednisone she was admitted with healthcare associated pneumonia. Blood cultures are negative. Most likely combination of gram-positive gram-negative organisms are responsible. 10/18/2018-patient is presently p.o. levo floxacillin. Afebrile. Blood cultures are negative. Unable to collect sputum culture. Plan is to continue the antibiotic at least another day or 2. 10/19/2018-patient is presently on p.o. levofloxacin afebrile. Blood cultures are negative. Is to discontinue antibiotic therapy from today. 10/20/2018-patient is admitted with pneumonia most likely healthcare associated pneumonia. Probably combination of gram-positive gram-negative organisms are responsible. Blood cultures are negative. Antibiotics are discontinued from yesterday. Afebrile. 2018-patient admitted with healthcare associated pneumonia treated with antibiotic therapy presently off the antibiotics T-max is 99.1 today. Blood cultures are negative. Plan to discharge the patient on levo floxacillin 500 mg p.o. daily for 7 days. (4) Hypertensive urgency Is this a current diagnosis for this admission?: Yes Summary: Resolved BP currently controlled ARYA and elevated troponins. Resume home dose cardizem PRN IV hydralazine SBP > 150. 10/11/2018: Continue current medications. Monitor blood pressure. 10/17/2018-patient's latest blood pressure is 164/78 moderately controlled. Plan is to continue the present management. 10/18/2018-patient blood pressure today's 133/55 stable. Plan is to continue the present management Cardizem 120 mg p.o. daily and she is also on IV hydralazine as needed. 10/19/2018-patient blood pressure today is 167/61. Presently on Cardizem 120 mg p.o. daily and also on IV hydralazine on as-needed basis. Plan is to continue the present management. 10/20/2018-patient blood pressure today is 171/80. Presently on Cardizem 120 mg p.o. daily and hydralazine IV PRN. to Add amlodipine 5 mg p.o. daily to the medication. 10/21/2018-patient's latest blood pressure today's 164/83. Presently on Cardizem 200 mg p.o. daily, amlodipine 5 mg p.o. daily. Recommended to continue the medications in the residential. (5) CHF exacerbation Is this a current diagnosis for this admission?: No Summary: Likely due to COPD exacerbation/pneumonia. BNP 7450 up from 1400 on 08/29/2018. 01/30/2017 2D echo shows LVH, Grade 2/4 diastolic dysfunction. LVEF 60%. Cardiac Diet Continue scheduled lasix 10/11/2018: Continue current treatments. Monitor weight daily. Continue diuresis. 10/12/2018: Continue current management 10/17/2018-patient is euvolemic. Patient's EF is 60% most likely she has moderate diastolic dysfunction which was chronic. Plan is to decrease the Lasix from 20 twice daily to once a day. 10/18/2018-patient recent echo suggested EF of 60% most likely she has chronic diastolic heart failure presently on Lasix 20 mg p.o. daily plan is to continue the present management. 10/20/2018-patient has chronic diastolic heart failure. Presently on Lasix 20 mg p.o. daily. Plan is to continue the management. 10/21/2018-patient has a chronic diastolic heart failure. Presently on Lasix 20 mg p.o. daily. Patient is recommended to continue the medications in the residential. - Additional Information Resuscitation Status: Full Code Discharge Diet: Cardiac, Diabetic Discharge Activity: Activity As Tolerated, Balance Activity w/Rest, Weigh Daily Home Medications: Atorvastatin Calcium [Lipitor 10 mg Tablet] 10 mg PO QPM 10/08/18 Cholecalciferol (Vitamin D3) [Vitamin D3 5000 unit Capsule] 5,000 unit PO DAILY 10/08/18 Diltiazem HCl [Cardizem Cd 240 mg Capsule.cr] 240 mg PO DAILY 10/08/18 Insulin Glargine,Hum.rec.anlog [Lantus Insulin 100 Unit/1 ml 10 ml] 40 unit SUBCUT BID 10/08/18 Pregabalin [Lyrica 100 mg Capsule] 100 mg PO QHS 10/08/18 Amlodipine Besylate [Norvasc 5 mg Tablet] 5 mg PO DAILY tablet 10/21/18 Docusate Sodium [Colace 100 mg Capsule] 100 mg PO DAILY capsule 10/21/18 Famotidine [Pepcid 20 mg Tablet] 20 mg PO Q12 tablet 10/21/18 Ferrous Sulfate [Feosol 325 mg Tablet] 325 mg PO DAILY tablet 10/21/18 Folic Acid [Folvite 1 mg Tablet] 1 mg PO QHS tablet 10/21/18 Furosemide [Lasix 20 mg Tablet] 20 mg PO BID tablet 10/21/18 Ipratropium/Albuterol Sulfate [Duoneb 3 ml Ampul] 3 ml NEB RTQ4HP PRN vial.neb 10/21/18 Levalbuterol HCl [Xopenex Neb 1.25 mg/3 ml Ampul] 1.25 mg NEB RTQ4 vial.neb 10/21/18 Potassium Chloride [Klor-Con 10 Meq Capsule ER] 20 meq PO Q12 capsule.er 10/21/18 Promethazine HCl [Phenergan Inj 25 mg/1 ml Vial] 6.25 mg IV Q4HP PRN vial 10/21/18 Thiamine HCl [Thiamine 100 mg Tablet] 100 mg PO QHS tablet 10/21/18 Venlafaxine HCl ER [Effexor Xr 75 mg Cap.sr] 150 mg PO DAILY #0 cap.sr.24h 10/21/18 History of Present Illness Admission Date/PCP: 10/07/18 17:37 BOBBI GARCIA PA-C History of Present Illness: VIVEK MAGUIRE is a 72 year old female 72 year old female past medical history of hypertension, diabetes, diabetic foot status post first metatarsal amputation, COPD (not on home oxygen), current smoker, PVD, hyperlipidemia, recurrent falls, alcohol abuse, plaque psoriasis, moved to [place] 4 years ago, currently retired and living independent by herself. Have no relatives except for a close friend Mr. Contrerass phone number is [phone]. Patient is presenting to ED with worsening shortness of breath on exertion, not on home oxygen, productive cough, mild left lower extremity swelling, denies any fever, chest pain, nausea, vomiting, abdominal pain, diarrhea, constipation or any urinary symptoms. In ED she was found to have a SBP 183/97, T-max 98, pulse 109, RR 1029, FiO2 86-94% on 4 L NC. WBC 13.5, no bandemia, hemoglobin 13.7, platelets 290, sodium 146.3, potassium 3.3, creatinine 1.35 baseline 1.3, 0.0 0.4-4 BNP 7450 up from 1400 on 08/29/2018. CXR: Persistent recurrent bibasilar airspace opacities. EKG sinus tachycardia. In Ed she was started on IV ceftriaxone, DuoNeb's, IV steroids. Physical Exam Vital Signs: Temp Pulse Resp BP Pulse Ox 99.1 F 90 20 164/83 H 98 10/21/18 11:31 10/21/18 12:01 10/21/18 12:01 10/21/18 11:31 10/21/18 12:01 Intake & Output 10/20/18 10/21/18 10/22/18 06:59 06:59 06:59 Intake Total 961.2 Balance 961.2 Weight 68.2 kg 64.8 kg General appearance: PRESENT: no acute distress, thin Head exam: PRESENT: atraumatic Eye exam: PRESENT: PERRLA Mouth exam: PRESENT: moist, tongue midline Teeth exam: PRESENT: poor dentation Neck exam: ABSENT: carotid bruit, JVD, lymphadenopathy, thyromegaly Respiratory exam: PRESENT: decreased breath sounds Cardiovascular exam: PRESENT: tachycardia GI/Abdominal exam: PRESENT: normal bowel sounds, soft. ABSENT: distended, guarding, mass, organolmegaly, rebound, tenderness Rectal exam: PRESENT: deferred Neurological exam: PRESENT: alert, awake, oriented to person, oriented to place, oriented to time, oriented to situation, CN II-XII grossly intact. ABSENT: motor sensory deficit Psychiatric exam: PRESENT: appropriate affect, normal mood. ABSENT: homicidal ideation, suicidal ideation Results Laboratory Results: 10/20/18 04:40 10/20/18 04:40 10/07/18 10/07/18 10/07/18 11:42 11:42 18:45 Creatine Kinase 36 Troponin I 0.424 0.302 NT-Pro-B Natriuret Pep 7450 H 10/08/18 11:29 Creatine Kinase Troponin I 0.143 NT-Pro-B Natriuret Pep Impressions: Chest X-Ray 10/18/18 12:30 IMPRESSION: Cannot exclude right pulmonary nodule. No infiltrate is present. Chest CT 10/19/18 00:00 IMPRESSION: Scattered sub- 3 mm pulmonary nodules throughout the lungs. There is a 1.2 cm solid pulmonary nodule at the right base. Transfer Plan - Time Spent with Patient Time spent with patient: Greater than 30 Minutes Qualifiers - * PATIENT BEING DISCHARGED WITH ANY OF THE FOLLOWING DIAGNOSIS: No VTE patient discharged on overlapping Therapy?: No Acute Heart Failure Is this a Heart Failure Patient?: No Plan Time Spent: Greater than 30 Minutes
== END 2018-10-21 15:20 | disposition hospice, home (50) | DRG 190 ==
LOC: ER 11:09 → EH 16:39 → OBSVTOIN 17:37 → 5 18:26
PROVIDERS: ADMIT Internal Medicine; ATTEND Internal Medicine
PROC: 5A09457 Assistance with Respiratory Ventilation, 24-96 Consecutive Hours, Continuous Positive Airway Pressure (ICD-10-PCS; principal; 2018-10-07)
PROC: 3E0F73Z Introduction of Anti-inflammatory into Respiratory Tract, Via Natural or Artificial Opening (ICD-10-PCS; 2018-10-07)
DX: J44.1 Chronic obstructive pulmonary disease with (acute) exacerbation (principal); J18.9 Pneumonia, unspecified organism; J96.02 Acute respiratory failure with hypercapnia; J96.01 Acute respiratory failure with hypoxia; N17.9 Acute kidney failure, unspecified; I50.32 Chronic diastolic (congestive) heart failure; I13.0 Hypertensive heart and chronic kidney disease with heart failure and stage 1 through stage 4 chronic kidney disease, or unspecified chronic kidney disease; N18.4 Chronic kidney disease, stage 4 (severe); I24.8 Other forms of acute ischemic heart disease; J44.0 Chronic obstructive pulmonary disease with (acute) lower respiratory infection; I16.0 Hypertensive urgency; E11.51 Type 2 diabetes mellitus with diabetic peripheral angiopathy without gangrene; E11.22 Type 2 diabetes mellitus with diabetic chronic kidney disease; E78.5 Hyperlipidemia, unspecified; R29.6 Repeated falls; Z60.2 Problems related to living alone; L40.0 Psoriasis vulgaris; F32.9 Major depressive disorder, single episode, unspecified; I87.8 Other specified disorders of veins; F51.04 Psychophysiologic insomnia; Z79.899 Other long term (current) drug therapy; Z79.4 Long term (current) use of insulin; Z88.6 Allergy status to analgesic agent; Z88.0 Allergy status to penicillin; Z88.8 Allergy status to other drugs, medicaments and biological substances; Z75.1 Person awaiting admission to adequate facility elsewhere
CPT/HCPCS: 36415; 71045; 71260; 80048; 80053; 80202; 82550; 82565; 82962; 83036; 83735; 83880; 84484; 85025; 85027; 87040; 87493; 93005; 93010; 94640; 94660; 96365; 99291; J0360; J0692; J0696; J1650; J1815; J2920; J2930; J3370; J3411; J3490; J7050; J7060; J7512; J7620

== ENCOUNTER 2018-10-30 18:49 | Emergency (ER) | payer MEDICARE, BC, OTHER ==
--- NOTE | 2018-10-30 20:18 | ER Document Report ---
ED General - General Chief Complaint: Other Stated Complaint: DEPRESSION Time Seen by Provider: 10/30/18 19:22 Primary Care Provider: BOBBI CUNNINGHAM PA-C [Primary Care Provider] - Follow up as needed Notes: Patient is a 73-year-old female with past medical history of COPD, chronic debility, presents by EMS due to inability to get out of bed. States that she had a bowel and bladder movement while in bed, did not want to sit in her stool and urine overnight contacting EMS to come to the emergency department. Patient is at home after she signed out AGAINST MEDICAL ADVICE from [facility] stating she does not like living there. This is actually a second time this patient has done this with the last 2 months and I saw her on the most recent occasion back in August under similar circumstances. The patient states that she has been at home for 6 days, has in-home hospice coming to the hospital otherwise sits in bed all day as she is not really able to ambulate around her home. She has noted living with her arm and does not have anybody else helping to care for her. Nothing is otherwise new or different that prompted a visit to the emergency department today. Patient states that she is here because she is starting to realize that she does need to be in an assisted or nursing type faci lity and that she will never be safe at home in this context due to her debility. She denies any falls or trauma today. Nothing seems to improve or worsen her gait and ability. Denies any chest pain, shortness of breath, fever or constitutional symptoms. Denies focal weakness or numbness. TRAVEL OUTSIDE OF THE [place] IN LAST 30 DAYS: No - HPI Onset: Other - Chronic gait and mobility Onset/Duration: Constant Quality of pain: No pain Severity: Severe Pain Level: Denies Associated symptoms: None Exacerbated by: Denies Relieved by: Denies Similar symptoms previously: Yes Recently seen / treated by doctor: No - Related Data Allergies/Adverse Reactions: valsartan [From Diovan] Allergy (Unknown, Verified 03/31/18 08:53) Penicillins Allergy (Verified 03/31/18 08:53) exenatide [From Byetta] Adverse Reaction (Severe, Verified 03/31/18 08:53) Migraine quetiapine [From Seroquel] Adverse Reaction (Verified 08/23/18 03:32) insomnia topiramate [From Topamax] Adverse Reaction (Verified 08/23/18 03:33) vision changes Past Medical History - General Information source: Patient - Social History Smoking Status: Former Smoker Frequency of alcohol use: Occasional Drug Abuse: None Lives with: Alone Family History: Reviewed & Not Pertinent, CAD, Malignancy, Other - Past Medical History Cardiac Medical History: Reports: Hx Hypercholesterolemia, Hx Hypertension, Hx Peripheral Vascular Disease Denies: Hx Atrial Fibrillation, Hx Congestive Heart Failure, Hx Pulmonary Embolism Pulmonary Medical History: Reports: Hx Asthma, Hx Bronchitis, Hx COPD Endocrine Medical History: Reports: Hx Diabetes Mellitus Type 1, Hx Diabetes Mellitus Type 2 Renal/ Medical History: Denies: Hx Peritoneal Dialysis Psychiatric Medical History: Reports: Hx Depression Past Surgical History: Reports: Hx Adenoidectomy, Hx Orthopedic Surgery - Patient has had both left and right hip fracture repairs secondary to falls, Hx Tonsillectomy, Other - Cataract, left great toe amputation - Immunizations Hx Diphtheria, Pertussis, Tetanus Vaccination: Yes Hx Pneumococcal Vaccination: 05/24/11 Review of Systems - Review of Systems Notes: Constitutional: Negative for fever. HENT: Negative for sore throat. Eyes: Negative for visual changes. Cardiovascular: Negative for chest pain. Respiratory: Negative for shortness of breath. Gastrointestinal: Negative for abdominal pain, vomiting or diarrhea. Genitourinary: Negative for dysuria. Musculoskeletal: Negative for back pain. Skin: Negative for rash. Neurological: Negative for headaches, weakness or numbness. 10 point ROS negative except as marked above and in HPI. Physical Exam - Vital signs Vitals: Temp Pulse Resp BP Pulse Ox 97.9 F 106 H 19 140/62 H 92 10/30/18 18:50 10/30/18 18:50 10/30/18 18:50 10/30/18 18:50 10/30/18 18:50 Interpretation: Tachycardic Notes: PHYSICAL EXAMINATION: GENERAL: Frail, elderly female, in no distress HEAD: Atraumatic, normocephalic. EYES: Pupils equal round and reactive to light, extraocular movements intact, sclera anicteric, conjunctiva are normal. ENT: nares patent, oropharynx clear without exudates. Moderately dry mucous membranes. NECK: Normal range of motion, supple without lymphadenopathy LUNGS: Breath sounds clear to auscultation bilaterally and equal. No wheezes rales or rhonchi. HEART: Regular rate and rhythm without murmurs ABDOMEN: Soft, nontender, normoactive bowel sounds. No guarding, no rebound. No masses appreciated. EXTREMITIES: Normal range of motion, no pitting or edema. No cyanosis. NEUROLOGICAL: No focal neurological deficits. Moves all extremities spontaneously and on command. PSYCH: Normal mood, normal affect. SKIN: Warm, Dry, normal turgor, no rashes or lesions noted. Course - Re-evaluation Re-evalutation: 10/30/18 20:17 Patient presents with being unable to get out of her bed, sitting in stool and urine for the past 24 hours. This is the second time and that I have seen the patient after she discharged herself from a nursing facility and found that she is unable to care for herself at home. She does have hospice services at home but states that they do not come out on the weekend. There is nothing new or acute regarding her condition by her own admission. The patient continues to acknowledge that it was a mistake to leave the assisted living facility. I have expressed to the patient that she does not meet medical criteria for admission at this time and that I can have social work see her in the morning and attempt to get her replaced in a facility. Her physical screening exam is otherwise unremarkable. There is no focal neurologic deficits. - Vital Signs Vital signs: Temp Pulse Resp BP Pulse Ox 97.9 F 106 H 19 140/62 H 92 10/30/18 18:50 10/30/18 18:50 10/30/18 18:50 10/30/18 18:50 10/30/18 18:50 - Laboratory Result Diagrams: 10/30/18 20:27 10/30/18 20:27 Laboratory results interpreted by me: 10/30/18 10/30/18 10/30/18 20:27 20:27 20:33 WBC 18.1 H MCH 26.7 L RDW 22.5 H Seg Neutrophils % 87.6 H Lymphocytes % 6.5 L Absolute Neutrophils 15.9 H Sodium 130.5 L Chloride 88 L Carbon Dioxide 17 L Anion Gap 26 H BUN 44 H Creatinine 1.82 H Est GFR ( Amer) 33 L Est GFR (Non-Af Amer) 27 L Glucose 275 H Direct Bilirubin 0.6 H Total Protein 5.9 L Albumin 3.4 L Urine Protein 100 H Urine Glucose (UA) 150 H Urine Ketones 80 H Urine Blood SMALL H Discharge - Discharge Clinical Impression: Frequent falls, Ambulatory dysfunction Condition: Fair Disposition: HOME-ASSISTED LIVING Referrals: BOBBI CUNNINGHAM PA-C [Primary Care Provider] - Follow up as needed
[2018-10-30 20:47] LABS: ABSOLUTE BASOPHILS # (AUTO) 0.1 10^3/uL (0.0-0.2); ABSOLUTE EOSINOPHILS # (AUTO) 0.1 10^3/uL (0.0-0.6); ABSOLUTE LYMPHOCYTES (AUTO) 1.2 10^3/uL (0.5-4.7); ABSOLUTE MONOCYTES (AUTO) 0.8 10^3/uL (0.1-1.4); ABSOLUTE NEUT (AUTO) 15.9 10^3/uL (1.7-8.2); BASOPHILS % (AUTO) 0.7 % (0-2); EOSINOPHILS % (AUTO) 0.8 % (0-6); HEMATOCRIT 39.6 % (36.0-47.0); HEMOGLOBIN 12.7 g/dL (12.0-15.5); LYMPHOCYTES % (AUTO) 6.5 % (13-45); MEAN CORPUSCULAR HEMOGLOBIN 26.7 pg (27.0-33.4); MEAN CORPUSCULAR VOLUME 83 fl (80-97); MONOCYTES % (AUTO) 4.4 % (3-13); PLATELET COUNT 292 10^3/uL (150-450); RED BLOOD COUNT 4.75 10^6/uL (3.72-5.28); RED CELL DISTRIBUTION WIDTH 22.5 % (11.5-14.0); SEGMENTED NEUTROPHILS % (AUTO) 87.6 % (42-78); TOTAL CELLS COUNTED % (AUTO) 100 %; WHITE BLOOD COUNT 18.1 10^3/uL (4.0-10.5)
[2018-10-30 20:54] LABS: APPEARANCE,URINE SLIGHTLY-CLOUDY; BILIRUBIN,URINE NEGATIVE (NEGATIVE); COLOR,URINE YELLOW; GLUCOSE, URINE 150 mg/dL (NEGATIVE); KETONES,URINE 80 mg/dL (NEGATIVE); LEUKOCYTE ESTERASE,URINE NEGATIVE (NEGATIVE); NITRITE,URINE NEGATIVE (NEGATIVE); PROTEIN,URINE 100 mg/dL (NEGATIVE); URINE SPECIFIC GRAVITY 1.015; UROBILINOGEN,URINE NEGATIVE mg/dL (<2.0)
[2018-10-30 21:05] LABS: ALANINE AMINOTRANSFERASE 29 U/L (9-52); ALBUMIN 3.4 g/dL (3.5-5.0); ALKALINE PHOSPHATASE 91 U/L (38-126); ASPARTATE AMINO TRANSFERASE 28 U/L (14-36); BILIRUBIN,DIRECT 0.6 mg/dL (0.0-0.4); BILIRUBIN,TOTAL 0.9 mg/dL (0.2-1.3); BLOOD UREA NITROGEN 44 mg/dL (7-20); CALCIUM 8.6 mg/dL (8.4-10.2); CARBON DIOXIDE 17 mmol/L (22-30); CREATINE KINASE 62 U/L (30-135); GLUCOSE 275 mg/dL (75-110); POTASSIUM 4.9 mmol/L (3.6-5.0); TOTAL PROTEIN 5.9 g/dL (6.3-8.2)
[2018-10-30 21:11] LABS: ANION GAP 26 (5-19); CHLORIDE 88 mmol/L (98-107); SODIUM 130.5 mmol/L (137-145)
[2018-10-30] MEDS ORDERED: ACETAMINOPHEN 325 MG TABLET PO ONE (22:39)
[2018-10-31] MEDS ORDERED: DEXTROSE 40% GEL 15 GM TUBE PO PRN ×2 (01:30)
[2018-10-31] MEDS ORDERED: GLUCAGON,HUMAN RECOMB 1 MG INJ IM PRN (01:30)
[2018-10-31] MEDS ORDERED: DEXTROSE 50%-WATER 25 GM/50 ML DISP.SYRIN IV PRN ×2 (01:30)
[2018-10-31] MEDS: INSULIN REG, HUMAN 100 UNIT/ML 3 ML VIAL (PYX) SUBCUT SCH ×5 (02:03→23:15)
[2018-10-31] MEDS ORDERED: NORMAL SALINE 1000 ML 1,000 ML IV ONE (09:21)
--- NOTE | 2018-10-31 09:25 | ER Document Report ---
Doctor's Note Notes: 10/31/18 09:24 73-year-old female who recently left [facility] secondary to wanting to live on her own who supposedly has some in-home hospice presents today given that she was lying in her own urine and feces secondary to inability to ambulate. Supposedly in home hospice does not come on the weekends. Vital signs as recorded. Patient's creatinine was 1.8 up from 1.11-week ago. I have provided a liter of fluid. We will provide fluids and retest the patient's creatinine at 5 PM today. 10/31/18 15:41 Patient's creatinine has improved. Sodium is 128.
[2018-10-31 14:45] LABS: ANION GAP 8 (5-19); BLOOD UREA NITROGEN 45 mg/dL (7-20); CALCIUM 8.3 mg/dL (8.4-10.2); CHLORIDE 92 mmol/L (98-107); GLUCOSE 327 mg/dL (75-110); POTASSIUM 4.5 mmol/L (3.6-5.0); SODIUM 128.1 mmol/L (137-145)
[2018-10-31 15:38] LABS: CARBON DIOXIDE 28 mmol/L (22-30)
[2018-10-31] MEDS: ATORVASTATIN CALCIUM 10 MG TABLET PO SCH (17:11)
[2018-10-31] MEDS: INSULIN GLARGINE,HUM.REC.ANLOG 1,000 UNIT/10 ML VIAL SUBCUT SCH (17:11)
[2018-10-31] MEDS: FUROSEMIDE 20 MG TABLET PO SCH (18:39)
[2018-10-31] MEDS: POTASSIUM CHLORIDE 10 MEQ CAPSULE.ER PO SCH (21:06)
[2018-10-31] MEDS: PREGABALIN 100 MG CAPSULE PO SCH (21:06)
[2018-10-31] MEDS: FOLIC ACID 1 MG TABLET PO SCH (21:06)
[2018-10-31] MEDS: THIAMINE HCL 100 MG TABLET PO SCH (21:06)
[2018-10-31] MEDS: FAMOTIDINE 20 MG TABLET PO SCH (21:06)
[2018-11-01] MEDS: INSULIN REG, HUMAN 100 UNIT/ML 3 ML VIAL (PYX) SUBCUT SCH ×4 (07:02→23:48)
[2018-11-01] MEDS: POTASSIUM CHLORIDE 10 MEQ CAPSULE.ER PO SCH ×2 (09:44→22:56)
[2018-11-01] MEDS: CHOLECALCIFEROL (D3) 1,000 UNIT TABLET PO SCH (09:44)
[2018-11-01] MEDS: DILTIAZEM HCL 240 MG CAPSULE.CR PO SCH (09:44)
[2018-11-01] MEDS: AMLODIPINE BESYLATE 5 MG TABLET PO SCH (09:44)
[2018-11-01] MEDS: DOCUSATE SODIUM 100 MG CAPSULE PO SCH (09:44)
[2018-11-01] MEDS: FUROSEMIDE 20 MG TABLET PO SCH ×2 (09:44→17:01)
[2018-11-01] MEDS: FAMOTIDINE 20 MG TABLET PO SCH ×2 (09:45→22:57)
[2018-11-01] MEDS: FERROUS SULFATE 325 MG TABLET PO SCH (09:45)
[2018-11-01] MEDS: VENLAFAXINE HCL 75 MG CAP.SR.24H PO SCH (09:46)
[2018-11-01] MEDS: INSULIN GLARGINE,HUM.REC.ANLOG 1,000 UNIT/10 ML VIAL SUBCUT SCH ×2 (09:49→17:01)
[2018-11-01 10:26] LABS: ABSOLUTE BASOPHILS # (AUTO) 0.1 10^3/uL (0.0-0.2); ABSOLUTE EOSINOPHILS # (AUTO) 0.3 10^3/uL (0.0-0.6); ABSOLUTE LYMPHOCYTES (AUTO) 1.2 10^3/uL (0.5-4.7); ABSOLUTE MONOCYTES (AUTO) 0.7 10^3/uL (0.1-1.4); ABSOLUTE NEUT (AUTO) 9.8 10^3/uL (1.7-8.2); BASOPHILS % (AUTO) 0.9 % (0-2); EOSINOPHILS % (AUTO) 2.8 % (0-6); HEMATOCRIT 36.3 % (36.0-47.0); HEMOGLOBIN 11.8 g/dL (12.0-15.5); LYMPHOCYTES % (AUTO) 9.9 % (13-45); MEAN CORPUSCULAR HEMOGLOBIN 27.1 pg (27.0-33.4); MEAN CORPUSCULAR HGB CONC 32.3 g/dL (32.0-36.0); MEAN CORPUSCULAR VOLUME 84 fl (80-97); MONOCYTES % (AUTO) 5.6 % (3-13); PLATELET COUNT 236 10^3/uL (150-450); RED BLOOD COUNT 4.34 10^6/uL (3.72-5.28); RED CELL DISTRIBUTION WIDTH 22.3 % (11.5-14.0); SEGMENTED NEUTROPHILS % (AUTO) 80.8 % (42-78); TOTAL CELLS COUNTED % (AUTO) 100 %; WHITE BLOOD COUNT 12.1 10^3/uL (4.0-10.5)
[2018-11-01 10:43] LABS: ANION GAP 10 (5-19); BLOOD UREA NITROGEN 34 mg/dL (7-20); CALCIUM 8.8 mg/dL (8.4-10.2); CARBON DIOXIDE 30 mmol/L (22-30); CHLORIDE 95 mmol/L (98-107); GLUCOSE 294 mg/dL (75-110); POTASSIUM 4.2 mmol/L (3.6-5.0); SODIUM 134.6 mmol/L (137-145)
[2018-11-01] MEDS: ATORVASTATIN CALCIUM 10 MG TABLET PO SCH (17:02)
--- NOTE | 2018-11-01 19:42 | ER Document Report ---
Entered by FRANCISCO TABARES SCRIBE 11/01/18 1235 Acting as scribe for:EVERETT LYNCH DO Doctor's Note Notes: 11/01/18 10:13 Patient is a 73-year-old female with past medical history of COPD, chronic debility, presents by EMS due to inability to get out of bed. Patient was recently in a medical facility but signed herself out AMA. She states upon arrival to her home, she urinated and defecated on herself due to being unable to get out of bed. Patient is curious if contact has been made to [facility] further stating "When I was there, I saw a lot of open beds". Informed patient that a referral has been made. Patient states she will attempt to let nurses know when she has to use the bathroom. She also complains of skin break down of her thighs. Barrier cream has been applied. GENERAL: Alert, interacts well. No acute distress. HEAD: Normocephalic, atraumatic. EYES: Pupils equal, round, and reactive to light. Extraocular movements intact. ENT: Oral mucosa moist, tongue midline. NECK: Full range of motion. Supple. Trachea midline. LUNGS: Clear to auscultation bilaterally, no wheezes, rales, or rhonchi. No respiratory distress. HEART: Regular rate and rhythm. No murmurs, gallops, or rubs. ABDOMEN: Soft, non-tender. Non-distended. Bowel sounds present in all 4 quadrants. No guarding, rigidity, or rebound. EXTREMITIES: Moves all 4 extremities spontaneously. No edema, radial and dorsalis pedis pulses 2/4 bilaterally. No cyanosis. NEUROLOGICAL: Alert and oriented x3. Normal speech. PSYCH: Normal affect, normal mood. SKIN: Warm, dry. Beefy red erythema to the BLE, particularly to the upper thighs and genital area, no satellite lesions. I personally performed the services described in the documentation, reviewed and edited the documentation which was dictated to the scribe in my presence, and it accurately records my words and actions.
[2018-11-01] MEDS: FOLIC ACID 1 MG TABLET PO SCH (22:56)
[2018-11-01] MEDS: PREGABALIN 100 MG CAPSULE PO SCH (22:57)
[2018-11-01] MEDS: THIAMINE HCL 100 MG TABLET PO SCH (22:57)
[2018-11-02] MEDS ORDERED: ACETAMINOPHEN 325 MG TABLET PO ONE (01:38)
[2018-11-02] MEDS: AMLODIPINE BESYLATE 5 MG TABLET PO SCH (09:38)
[2018-11-02] MEDS: FERROUS SULFATE 325 MG TABLET PO SCH (09:38)
[2018-11-02] MEDS: FAMOTIDINE 20 MG TABLET PO SCH (09:38)
[2018-11-02] MEDS: VENLAFAXINE HCL 75 MG CAP.SR.24H PO SCH (09:38)
[2018-11-02] MEDS: DOCUSATE SODIUM 100 MG CAPSULE PO SCH (09:38)
[2018-11-02] MEDS: CHOLECALCIFEROL (D3) 1,000 UNIT TABLET PO SCH (09:38)
[2018-11-02] MEDS: FUROSEMIDE 20 MG TABLET PO SCH ×2 (09:39→17:15)
[2018-11-02] MEDS: POTASSIUM CHLORIDE 10 MEQ CAPSULE.ER PO SCH (09:39)
[2018-11-02] MEDS: INSULIN GLARGINE,HUM.REC.ANLOG 1,000 UNIT/10 ML VIAL SUBCUT SCH (09:40)
--- NOTE | 2018-11-02 10:31 | ER Document Report ---
Doctor's Note Notes: 11/02/18 10:28 Rounds: Patient is talking with a visitor and I did not interrupt him. Patient is a social hold awaiting placement. She was in [facility] but signed herself out a day or 2 ago. We are trying to make arrangements for her to go to another facility,? [facility] Lab studies had an initial white count of 18,100, but a repeat of that is 12,100. Sodium was a little bit low at 134.6 and chloride was 95. Other labs are unremarkable. Vital signs are normal. Patient appears to be medically stable for transfer or discharge. Carmel Saba MD
[2018-11-02] MEDS: INSULIN REG, HUMAN 100 UNIT/ML 3 ML VIAL (PYX) SUBCUT SCH ×2 (12:39→17:11)
[2018-11-02] MEDS: ATORVASTATIN CALCIUM 10 MG TABLET PO SCH (17:15)
[2018-11-03] MEDS: INSULIN REG, HUMAN 100 UNIT/ML 3 ML VIAL (PYX) SUBCUT SCH ×2 (00:36→11:54)
[2018-11-03] MEDS: FOLIC ACID 1 MG TABLET PO SCH (00:38)
[2018-11-03] MEDS: PREGABALIN 100 MG CAPSULE PO SCH (00:39)
[2018-11-03] MEDS: FAMOTIDINE 20 MG TABLET PO SCH ×2 (00:39→09:24)
[2018-11-03] MEDS: POTASSIUM CHLORIDE 10 MEQ CAPSULE.ER PO SCH ×2 (00:40→09:23)
[2018-11-03] MEDS: THIAMINE HCL 100 MG TABLET PO SCH (00:41)
[2018-11-03] MEDS: CHOLECALCIFEROL (D3) 1,000 UNIT TABLET PO SCH (09:23)
[2018-11-03] MEDS: VENLAFAXINE HCL 75 MG CAP.SR.24H PO SCH (09:23)
[2018-11-03] MEDS: FUROSEMIDE 20 MG TABLET PO SCH (09:24)
[2018-11-03] MEDS: DOCUSATE SODIUM 100 MG CAPSULE PO SCH (09:24)
[2018-11-03] MEDS: DILTIAZEM HCL 240 MG CAPSULE.CR PO SCH (09:24)
[2018-11-03] MEDS: AMLODIPINE BESYLATE 5 MG TABLET PO SCH (09:24)
[2018-11-03] MEDS: FERROUS SULFATE 325 MG TABLET PO SCH (09:25)
[2018-11-03] MEDS: INSULIN GLARGINE,HUM.REC.ANLOG 1,000 UNIT/10 ML VIAL SUBCUT SCH (09:27)
[2018-11-03 17:09] VITALS: BP 112/65
== END 2018-11-03 17:10 | disposition home health service (06) ==
LOC: ER 18:49
DX: R26.9 Unspecified abnormalities of gait and mobility (principal); R29.6 Repeated falls; R53.81 Other malaise; J44.9 Chronic obstructive pulmonary disease, unspecified; E11.51 Type 2 diabetes mellitus with diabetic peripheral angiopathy without gangrene; I10 Essential (primary) hypertension; Z60.2 Problems related to living alone; Z87.891 Personal history of nicotine dependence; Z88.8 Allergy status to other drugs, medicaments and biological substances; Z88.0 Allergy status to penicillin
CPT/HCPCS: 99284; 96360; 51701; 36415; 82962; 82550; 85025; 80048; 80053; 81001; A9270 ×47; J7030; J1815

== ENCOUNTER 2018-11-08 19:29 | Emergency (ER) | payer MEDICARE, BC, OTHER ==
--- NOTE | 2018-11-08 19:49 | ER Document Report ---
ED Medical Screen (RME) - General Chief Complaint: Diarrhea Stated Complaint: WEAKNESS Time Seen by Provider: 11/08/18 19:42 Primary Care Provider: BOBBI CUNNINGHAM PA-C [Primary Care Provider] - Follow up as needed TRAVEL OUTSIDE OF THE [place] IN LAST 30 DAYS: No - HPI Notes: 11/08/18 19:47 Patient is a 73-year-old female with history of COPD without oxygen dependence, type 2 diabetes, chronic debility who presents by EMS for unsafe living conditions at home as she was in her urine and feces on the bed when the nurse went to check on her. They also saw cockroaches. This is happened a couple times here in the past with most recent 9 days ago. Patient states that she is otherwise at baseline with her health and has no other concerns or complaints. Denies MANE, fever, neck pain, URI, CP, Abd pain, n/v/d, dysuria, back pain, or rash. I have treated and performed a rapid initial assessment of this patient. A comprehensive ED assessment and evaluation of the patient, analysis of test results and completion of medical decision making process will be conducted by additional ED providers. PHYSICAL EXAMINATION: GENERAL: Well-appearing, well-nourished and in no acute distress. A&Ox4. Answers questions appropriately. LUNGS: wheezes b/l. HEART: Regular rate and rhythm without murmurs, rubs, gallops. Extremities: No cyanosis, clubbing, or edema b/l. NEUROLOGICAL: Normal speech, normal gait. PSYCH: Tearful - Related Data Allergies/Adverse Reactions: valsartan [From Diovan] Allergy (Unknown, Verified 10/31/18 07:47) Penicillins Allergy (Verified 10/31/18 07:47) exenatide [From Byetta] Adverse Reaction (Severe, Verified 10/31/18 07:47) Migraine quetiapine [From Seroquel] Adverse Reaction (Verified 10/31/18 07:47) insomnia topiramate [From Topamax] Adverse Reaction (Verified 10/31/18 07:47) vision changes Past Medical History - Past Medical History Cardiac Medical History: Reports: Hx Hypercholesterolemia, Hx Hypertension, Hx Peripheral Vascular Disease Denies: Hx Atrial Fibrillation, Hx Congestive Heart Failure, Hx Pulmonary Embolism Pulmonary Medical History: Reports: Hx Asthma, Hx Bronchitis, Hx COPD Endocrine Medical History: Reports: Hx Diabetes Mellitus Type 1, Hx Diabetes Mellitus Type 2 Renal/ Medical History: Denies: Hx Peritoneal Dialysis Psychiatric Medical History: Reports: Hx Depression Past Surgical History: Reports: Hx Adenoidectomy, Hx Orthopedic Surgery - Patient has had both left and right hip fracture repairs secondary to falls, Hx Tonsillectomy, Other - Cataract, left great toe amputation - Immunizations Hx Diphtheria, Pertussis, Tetanus Vaccination: Yes History of Influenza Vaccine for 02/2017 - 07/2017 Season: Yes Influenza Administration Date for 02/2017 - 07/2017 Season: 03/24/17 Physical Exam - Vital signs Vitals: Temp Pulse BP Pulse Ox 98.5 F 115 H 146/79 H 90 L 11/08/18 19:36 11/08/18 19:36 11/08/18 19:36 11/08/18 19:36 Course - Vital Signs Vital signs: Temp Pulse Resp BP Pulse Ox 98.5 F 115 H 22 H 146/79 H 90 L 11/08/18 19:36 11/08/18 19:36 11/08/18 19:39 11/08/18 19:36 11/08/18 19:36 Doctor's Discharge - Discharge Referrals: BOBBI CUNNINGHAM PA-C [Primary Care Provider] - Follow up as needed
[2018-11-08] MEDS ORDERED: NORMAL SALINE 1000 ML 1,000 ML IV ONE (19:50)
[2018-11-08] MEDS ORDERED: IPRATROPIUM/ALBUTEROL 0.5-2.5 MG/3 ML AMPUL NEB ONE (19:51)
--- NOTE | 2018-11-08 20:30 | RADIOLOGY REPORT (SQ) ---
XR CHEST 2 VIEWS HISTORY: Wheeze. COMPARISON: 10/18/2018 FINDINGS: The heart size is within normal limits. No consolidation, pleural effusion, or pneumothorax is seen. There is a chronic deformity of the proximal left humerus. IMPRESSION: No evidence of acute cardiopulmonary disease.
[2018-11-08 20:34] LABS: ABSOLUTE BASOPHILS # (AUTO) 0.2 10^3/uL (0.0-0.2); ABSOLUTE EOSINOPHILS # (AUTO) 0.1 10^3/uL (0.0-0.6); ABSOLUTE LYMPHOCYTES (AUTO) 1.6 10^3/uL (0.5-4.7); ABSOLUTE MONOCYTES (AUTO) 0.9 10^3/uL (0.1-1.4); ABSOLUTE NEUT (AUTO) 9.3 10^3/uL (1.7-8.2); BASOPHILS % (AUTO) 1.4 % (0-2); EOSINOPHILS % (AUTO) 0.8 % (0-6); HEMATOCRIT 37.3 % (36.0-47.0); LYMPHOCYTES % (AUTO) 13.4 % (13-45); MEAN CORPUSCULAR HEMOGLOBIN 27.4 pg (27.0-33.4); MEAN CORPUSCULAR HGB CONC 32.1 g/dL (32.0-36.0); MEAN CORPUSCULAR VOLUME 85 fl (80-97); MONOCYTES % (AUTO) 7.3 % (3-13); PLATELET COUNT 354 10^3/uL (150-450); RED BLOOD COUNT 4.38 10^6/uL (3.72-5.28); RED CELL DISTRIBUTION WIDTH 22.5 % (11.5-14.0); SEGMENTED NEUTROPHILS % (AUTO) 77.1 % (42-78); TOTAL CELLS COUNTED % (AUTO) 100 %; VENOUS BLOOD BASE EXCESS 7.6 mmol/L; VENOUS BLOOD HCO3 33.5 mmol/L (20-32); VENOUS BLOOD PCO2 52.6 mmHg (35-63); VENOUS BLOOD PH 7.42 (7.30-7.42); WHITE BLOOD COUNT 12.1 10^3/uL (4.0-10.5)
[2018-11-08 20:50] LABS: ALANINE AMINOTRANSFERASE 23 U/L (9-52); ALBUMIN 3.4 g/dL (3.5-5.0); ALKALINE PHOSPHATASE 129 U/L (38-126); ANION GAP 9 (5-19); ASPARTATE AMINO TRANSFERASE 15 U/L (14-36); BILIRUBIN,DIRECT 0.2 mg/dL (0.0-0.4); BILIRUBIN,TOTAL 0.5 mg/dL (0.2-1.3); BLOOD UREA NITROGEN 18 mg/dL (7-20); CALCIUM 8.6 mg/dL (8.4-10.2); CARBON DIOXIDE 32 mmol/L (22-30); CHLORIDE 91 mmol/L (98-107); GLUCOSE 310 mg/dL (75-110); POTASSIUM 4.5 mmol/L (3.6-5.0); SODIUM 131.6 mmol/L (137-145); TOTAL PROTEIN 5.9 g/dL (6.3-8.2)
[2018-11-09] MEDS ORDERED: INSULIN REG, HUMAN 100 UNIT/ML 3 ML VIAL (PYX) SUBCUT ONE (01:25)
--- NOTE | 2018-11-09 01:27 | ER Document Report ---
ED General - General TRAVEL OUTSIDE OF THE [place] IN LAST 30 DAYS: No <AMANDA ALVES - Last Filed: 11/09/18 07:08> <ZELDA PHELAN - Last Filed: 11/11/18 14:43> - General Chief Complaint: Diarrhea Stated Complaint: WEAKNESS Time Seen by Provider: 11/08/18 19:42 Primary Care Provider: BOBBI CUNNINGHAM PA-C [NO LOCAL MD] - Follow up as needed Notes: Patient is a pleasant 73-year-old female presents with complaint of unable to care for self at home. She is actually just here last week for the same thing. She stayed for several days waiting to be placed in a correction or assisted living facility. There is no note saying exactly what happened to her as she when she left. Patient herself says that she thinks that she may have not had the money to be placed in the facility and therefore decided to go home. Is not really 100% clear exactly what happened to her at her last visit here. Prior to that her previous visit she was at [facility] but signed herself out. She says that she has had a friend who has been checking on her and bring her food. She also had a hospice nurse who came by today and noticed that she was lying in her own feces and that there is cockroaches throughout the house and therefore called and wants to have her brought here. Patient admits that she cannot care for herself. She says that she can sometimes get out of bed and get in a wheelchair however last time she cannot make it to the bathroom and will soil herself has had significant rotation over her gluteal and rectal region. Patient says sometimes she is able to take her meds occasions and others at times she is not. Denies any chest pain. No abdominal pain. No vomiting. No fevers. No new medical complaints. (AMANDA ALVES) - Related Data Allergies/Adverse Reactions: valsartan [From Diovan] Allergy (Unknown, Verified 11/09/18 10:26) Penicillins Allergy (Verified 11/09/18 10:26) exenatide [From Byetta] Adverse Reaction (Severe, Verified 11/09/18 10:26) Migraine quetiapine [From Seroquel] Adverse Reaction (Verified 11/09/18 10:26) insomnia topiramate [From Topamax] Adverse Reaction (Verified 11/09/18 10:26) vision changes Past Medical History - Social History Smoking Status: Never Smoker Chew tobacco use (# tins/day): No Frequency of alcohol use: None Drug Abuse: None Family History: Reviewed & Not Pertinent, CAD, Malignancy, Other Patient has suicidal ideation: No Patient has homicidal ideation: No - Past Medical History Cardiac Medical History: Reports: Hx Hypercholesterolemia, Hx Hypertension, Hx Peripheral Vascular Disease Denies: Hx Atrial Fibrillation, Hx Congestive Heart Failure, Hx Pulmonary Embolism Pulmonary Medical History: Reports: Hx Asthma, Hx Bronchitis, Hx COPD Endocrine Medical History: Reports: Hx Diabetes Mellitus Type 1, Hx Diabetes Mellitus Type 2 Renal/ Medical History: Denies: Hx Peritoneal Dialysis Psychiatric Medical History: Reports: Hx Depression Past Surgical History: Reports: Hx Adenoidectomy, Hx Orthopedic Surgery - Patient has had both left and right hip fracture repairs secondary to falls, Hx Tonsillectomy, Other - Cataract, left great toe amputation - Immunizations Hx Diphtheria, Pertussis, Tetanus Vaccination: Yes Hx Pneumococcal Vaccination: 05/24/11 <AMANDA ALVES - Last Filed: 11/09/18 07:08> Review of Systems <AMANDA ALVES - Last Filed: 11/09/18 07:08> - Review of Systems Notes: My Normal Review Basic REVIEW OF SYSTEMS: CONSTITUTIONAL : Denies fever, chills, or sweats. Denies recent illness. EENT: Denies eye, ear, throat, or mouth pain or symptoms. Denies nasal or sinus congestion. CARDIOVASCULAR: Denies chest pain. RESPIRATORY: Denies cough, cold, or chest congestion. Denies shortness of breath, difficulty breathing, or wheezing. GASTROINTESTINAL: Denies abdominal pain. Denies nausea, vomiting, or diarrhea. GENITOURINARY: Denies difficulty urinating, painful urination, burning, frequency, or blood in urine. MUSCULOSKELETAL: Denies neck or back pain or joint pain or swelling. SKIN: Irritation to skin over gluteal region. NEUROLOGICAL: Denies altered mental status or loss of consciousness. Denies headache. Denies weakness or paralysis or loss of use of either side. Denies problems with gait or speech. Denies sensory or motor loss. ALL OTHER SYSTEMS REVIEWED AND NEGATIVE. (AMANDA ALVES) Physical Exam <AMANDA ALVES - Last Filed: 11/09/18 07:08> - Vital signs Vitals: Temp Pulse BP Pulse Ox 98.5 F 115 H 146/79 H 90 L 11/08/18 19:36 11/08/18 19:36 11/08/18 19:36 11/08/18 19:36 - Notes Notes: General Appearance: Well nourished, alert, cooperative, no acute distress, no obvious discomfort. Vitals: reviewed, See vital signs table. Head: no swelling or tenderness to the head Eyes: PERRL, EOMI, Conjuctiva clear Mouth: No decreasd moisture Throat: No tonsillar inflammation, No airway obstruction, No lymphadenopathy Neck: Supple, no neck tenderness, No thyromegaly Lungs: No wheezing, No rales, No rhonci, No accessory muscle use, good air exchange bilaterally. Heart: Normal rate, Regular rythm, No murmur, no rub Abdomen: Normal BS, soft, No rigidity, No abdominal tenderness, No guarding, no rebound, no abdominal masses, no organomegaly Extremities: strength 5/5 in all extremities, good pulses in all extremities, no swelling or tenderness in the extremities, no edema. Skin: Patient has redness and skin irritation over majority of her gluteal region bilaterally with rotation to the rectal area. No ulceration. Patient has dried feces on her feet and ankles. Neuro: speech clear, oriented x 3, normal affect, responds appropriately to questions. Cranial nerves II through XII are intact. Distal sensation intact. Patient moves all extremities without difficulty. (AMANDA ALVES) Course - Laboratory Result Diagrams: 11/08/18 20:14 11/08/18 20:14 <AMANDA ALVES - Last Filed: 11/09/18 07:08> - Laboratory Result Diagrams: 11/08/18 20:14 11/08/18 20:14 <ZELDA PHELAN - Last Filed: 11/11/18 14:43> - Re-evaluation Re-evalutation: 11/09/18 07:05 Patient office is unable to care for self. She presents with stool on her legs and skin irritation from laying in her own feces and urine. Is really unclear why she signed [facility]. She does need an assisted living or correction type facility to help care for her. I do not feel I can send her home and her be safe at home. I we will keep the patient here for social work to evaluate to determine discharge planning to move facility that can actually help her get care. (AMANDA ALVES) - Vital Signs Vital signs: Temp Pulse Resp BP Pulse Ox 97.6 F 75 18 108/55 L 99 11/11/18 14:23 11/11/18 14:23 11/11/18 14:23 11/11/18 14:23 11/11/18 14:23 - Laboratory Laboratory results interpreted by me: 11/08/18 11/08/18 11/08/18 19:49 20:14 20:14 WBC 12.1 H RDW 22.5 H Absolute Neutrophils 9.3 H VBG HCO3 Sodium 131.6 L Chloride 91 L Carbon Dioxide 32 H Est GFR (Non-Af Amer) 51 L Glucose 310 H POC Glucose 296 H Alkaline Phosphatase 129 H Total Protein 5.9 L Albumin 3.4 L Urine Protein Urine Glucose (UA) Urine Blood Ur Leukocyte Esterase 11/08/18 11/09/18 11/09/18 20:14 01:50 05:30 WBC RDW Absolute Neutrophils VBG HCO3 33.5 H Sodium Chloride Carbon Dioxide Est GFR (Non-Af Amer) Glucose POC Glucose 335 H Alkaline Phosphatase Total Protein Albumin Urine Protein 100 H Urine Glucose (UA) >=500 H Urine Blood SMALL H Ur Leukocyte Esterase LARGE H 11/09/18 11/09/18 11/10/18 10:32 18:18 01:11 WBC RDW Absolute Neutrophils VBG HCO3 Sodium Chloride Carbon Dioxide Est GFR (Non-Af Amer) Glucose POC Glucose 386 H 280 H 45 L Alkaline Phosphatase Total Protein Albumin Urine Protein Urine Glucose (UA) Urine Blood Ur Leukocyte Esterase 11/10/18 11/10/18 11/10/18 02:05 03:05 13:09 WBC RDW Absolute Neutrophils VBG HCO3 Sodium Chloride Carbon Dioxide Est GFR (Non-Af Amer) Glucose POC Glucose 148 H 159 H 49 L Alkaline Phosphatase Total Protein Albumin Urine Protein Urine Glucose (UA) Urine Blood Ur Leukocyte Esterase 11/10/18 11/10/18 11/11/18 18:23 19:01 06:47 WBC RDW Absolute Neutrophils VBG HCO3 Sodium Chloride Carbon Dioxide Est GFR (Non-Af Amer) Glucose POC Glucose 46 L 187 H 39 L* Alkaline Phosphatase Total Protein Albumin Urine Protein Urine Glucose (UA) Urine Blood Ur Leukocyte Esterase 11/11/18 13:22 WBC RDW Absolute Neutrophils VBG HCO3 Sodium Chloride Carbon Dioxide Est GFR (Non-Af Amer) Glucose POC Glucose 165 H Alkaline Phosphatase Total Protein Albumin Urine Protein Urine Glucose (UA) Urine Blood Ur Leukocyte Esterase Discharge <AMANDA ALVES - Last Filed: 11/09/18 07:08> <PHELANZELDA - Last Filed: 11/11/18 14:43> - Discharge Clinical Impression: Physical deconditioning, Ambulatory dysfunction COPD (chronic obstructive pulmonary disease) Qualifiers: COPD type: unspecified COPD Qualified Code(s): J44.9 - Chronic obstructive pulmonary disease, unspecified UTI (urinary tract infection) Qualifiers: Urinary tract infection type: site unspecified Hematuria presence: without hematuria Qualified Code(s): N39.0 - Urinary tract infection, site not specified Condition: Stable Disposition: OTHER Instructions: Urinary Tract Infection ([facility]) Additional Instructions: Your urine shows findings consistent with a urinary tract infection. Please take all the antibiotics as directed even if your symptoms have improved. Please follow-up with your primary care physician as needed. Return to emergency room if you develop fever >101F, persistent vomiting, become lethargic, have severe pain in your sides, or any other symptoms that are concerning to you. Prescriptions: Sulfamethoxazole/Trimethoprim [Bactrim Ds Tablet] 1 each PO BID #10 tablet Referrals: BOBBI CUNNINGHAM PA-C [NO LOCAL MD] - Follow up as needed
[2018-11-09 07:36] LABS: APPEARANCE,URINE CLOUDY; BILIRUBIN,URINE NEGATIVE (NEGATIVE); COLOR,URINE YELLOW; GLUCOSE, URINE >=500 mg/dL (NEGATIVE); KETONES,URINE NEGATIVE (NEGATIVE); LEUKOCYTE ESTERASE,URINE LARGE (NEGATIVE); NITRITE,URINE NEGATIVE (NEGATIVE); PROTEIN,URINE 100 mg/dL (NEGATIVE); URINE SPECIFIC GRAVITY 1.016; UROBILINOGEN,URINE NEGATIVE mg/dL (<2.0)
[2018-11-09] MEDS ORDERED: AMLODIPINE BESYLATE 5 MG TABLET PO ONE (07:39)
--- NOTE | 2018-11-09 10:08 | ER Document Report ---
Doctor's Note Notes: 11/09/18 10:06 Rounds: Chart reviewed and patient interviewed. Patient is here because she says that she cannot live in her current residence. She was here a week or so ago after having signed herself out of [facility] after a 1 day stay. She has only been discharged from this hospital a few days when she returns and she cannot live there. Will not go back there. Lab studies were remarkable for blood sugars in the 300s, WBC 12,100, urine that could be a UTI. Urine culture has been ordered. Vital signs are all essentially normal. Patient appears to be medically stable for transfer or discharge. Carmel Saba MD
[2018-11-09] MEDS: INSULIN GLARGINE,HUM.REC.ANLOG 1,000 UNIT/10 ML VIAL SUBCUT SCH ×2 (10:26→18:25)
[2018-11-09] MEDS: FUROSEMIDE 20 MG TABLET PO SCH ×2 (10:28→18:34)
[2018-11-09] MEDS: FAMOTIDINE 20 MG TABLET PO SCH ×2 (10:28→18:25)
[2018-11-09] MEDS: DILTIAZEM HCL 240 MG CAPSULE.CR PO SCH (10:32)
[2018-11-09] MEDS: VENLAFAXINE HCL 75 MG TABLET PO SCH (11:08)
[2018-11-09] MEDS: PREGABALIN 100 MG CAPSULE PO SCH (18:25)
[2018-11-09] MEDS: ATORVASTATIN CALCIUM 10 MG TABLET PO SCH (18:25)
[2018-11-09] MEDS: FOLIC ACID 1 MG TABLET PO SCH (18:25)
[2018-11-09] MEDS: THIAMINE HCL 100 MG TABLET PO SCH (18:26)
[2018-11-09] MEDS ORDERED: ACETAMINOPHEN 325 MG TABLET PO ONE (21:15)
--- NOTE | 2018-11-10 09:49 | ER Document Report ---
Doctor's Note Notes: 11/10/18 09:47 Social Rounds: Patient remained stable without complaints. Awaiting placement. Vital signs of all been normal. Patient does apparently have a UTI, growing out gram-negative rods on her culture. We will start her on Macrobid pending sensitivity report. Patient appears to be medically stable for transfer or discharge. Carmel Saba MD
[2018-11-10] MEDS: NITROFURANTOIN MONOHYD/M-CRYST 100 MG CAPSULE PO SCH ×2 (10:25→18:25)
[2018-11-10] MEDS: FAMOTIDINE 20 MG TABLET PO SCH ×2 (10:25→18:25)
[2018-11-10] MEDS: FUROSEMIDE 20 MG TABLET PO SCH ×2 (10:25→18:25)
[2018-11-10] MEDS: DILTIAZEM HCL 240 MG CAPSULE.CR PO SCH (10:26)
[2018-11-10] MEDS: INSULIN GLARGINE,HUM.REC.ANLOG 1,000 UNIT/10 ML VIAL SUBCUT SCH ×2 (10:26→18:26)
[2018-11-10] MEDS: VENLAFAXINE HCL 75 MG TABLET PO SCH (10:27)
[2018-11-10] MEDS: PREGABALIN 100 MG CAPSULE PO SCH (18:25)
[2018-11-10] MEDS: THIAMINE HCL 100 MG TABLET PO SCH (18:25)
[2018-11-10] MEDS: FOLIC ACID 1 MG TABLET PO SCH (18:25)
[2018-11-10] MEDS: ATORVASTATIN CALCIUM 10 MG TABLET PO SCH (18:25)
[2018-11-11] MEDS: FUROSEMIDE 20 MG TABLET PO SCH (10:42)
[2018-11-11] MEDS: FAMOTIDINE 20 MG TABLET PO SCH (10:42)
[2018-11-11] MEDS: DILTIAZEM HCL 240 MG CAPSULE.CR PO SCH (10:42)
[2018-11-11] MEDS: NITROFURANTOIN MONOHYD/M-CRYST 100 MG CAPSULE PO SCH (10:43)
[2018-11-11] MEDS: INSULIN GLARGINE,HUM.REC.ANLOG 1,000 UNIT/10 ML VIAL SUBCUT SCH (10:43)
[2018-11-11] MEDS: VENLAFAXINE HCL 75 MG TABLET PO SCH (10:43)
[2018-11-11 14:26] VITALS: BP 108/55
[2018-11-11] MEDS ORDERED: SULFAMETHOXAZOLE/TRIMETHOPRIM 800-160 MG TABLET PO ONE (14:43)
== END 2018-11-11 14:36 ==
LOC: ER 19:29
DX: N39.0 Urinary tract infection, site not specified (principal); J44.9 Chronic obstructive pulmonary disease, unspecified; R68.89 Other general symptoms and signs; R19.7 Diarrhea, unspecified; R53.1 Weakness; E11.9 Type 2 diabetes mellitus without complications; I10 Essential (primary) hypertension; E78.00 Pure hypercholesterolemia, unspecified; Z88.0 Allergy status to penicillin
CPT/HCPCS: 94640; 99285; 96360; 36415; 87086; 82962; 85025; 87088; 80053; 81001; 87186; 82803; 83605; 71046; A9270 ×7; J7030; J1815; J7620; J8499

== ENCOUNTER → 2019-06-13 | Outpatient (CLI) | payer MEDICARE, BC ==
[2019-06-13 12:29] LABS: ABSOLUTE BASOPHILS # (AUTO) 0.1 10^3/uL (0.0-0.2); ABSOLUTE EOSINOPHILS # (AUTO) 0.2 10^3/uL (0.0-0.6); ABSOLUTE LYMPHOCYTES (AUTO) 1.5 10^3/uL (0.5-4.7); ABSOLUTE MONOCYTES (AUTO) 0.5 10^3/uL (0.1-1.4); ABSOLUTE NEUT (AUTO) 5.8 10^3/uL (1.7-8.2); BASOPHILS % (AUTO) 0.7 % (0-2); EOSINOPHILS % (AUTO) 2.5 % (0-6); HEMATOCRIT 35.1 % (36.0-47.0); HEMOGLOBIN 11.4 g/dL (12.0-15.5); LYMPHOCYTES % (AUTO) 18.7 % (13-45); MEAN CORPUSCULAR HEMOGLOBIN 27.2 pg (27.0-33.4); MEAN CORPUSCULAR HGB CONC 32.5 g/dL (32.0-36.0); MEAN CORPUSCULAR VOLUME 84 fl (80-97); MONOCYTES % (AUTO) 6.5 % (3-13); PLATELET COUNT 274 10^3/uL (150-450); RED CELL DISTRIBUTION WIDTH 16.7 % (11.5-14.0); SEGMENTED NEUTROPHILS % (AUTO) 71.6 % (42-78); TOTAL CELLS COUNTED % (AUTO) 100 %; WHITE BLOOD COUNT 8.1 10^3/uL (4.0-10.5)
[2019-06-13 12:30] LABS: APPEARANCE,URINE CLOUDY; BILIRUBIN,URINE NEGATIVE (NEGATIVE); COLOR,URINE YELLOW; GLUCOSE, URINE NEGATIVE (NEGATIVE); KETONES,URINE NEGATIVE (NEGATIVE); LEUKOCYTE ESTERASE,URINE LARGE (NEGATIVE); NITRITE,URINE NEGATIVE (NEGATIVE); PROTEIN,URINE >=500 mg/dL (NEGATIVE); URINE SPECIFIC GRAVITY 1.022; UROBILINOGEN,URINE NEGATIVE mg/dL (<2.0)
[2019-06-13 12:43] LABS: ANION GAP 10 (5-19); BLOOD UREA NITROGEN 35 mg/dL (7-20); CALCIUM 9.3 mg/dL (8.4-10.2); CARBON DIOXIDE 28 mmol/L (22-30); CHLORIDE 101 mmol/L (98-107); GLUCOSE 98 mg/dL (75-110)
--- NOTE | 2019-06-13 13:49 | EKG REPORT ---
SEVERITY:- ABNORMAL ECG - SINUS RHYTHM FIRST DEGREE AV BLOCK BORDERLINE R WAVE PROGRESSION, ANTERIOR LEADS : Confirmed by: Isma Cohen MD 13-Jun-2019 13:48:53
--- NOTE | 2019-06-13 16:01 | RADIOLOGY REPORT (SQ) ---
EXAM DESCRIPTION: CHEST PA/LATERAL COMPLETED DATE/TIME: 06/13/2019 12:04 pm REASON FOR STUDY: PRE-OP COMPARISON: 11/08/2018 EXAM PARAMETERS: NUMBER OF VIEWS: two views TECHNIQUE: Digital Frontal and Lateral radiographic views of the chest acquired. RADIATION DOSE: NA LIMITATIONS: none FINDINGS: LUNGS AND PLEURA: No opacities, masses or pneumothorax. No pleural effusion. MEDIASTINUM AND HILAR STRUCTURES: No masses or contour abnormalities. HEART AND VASCULAR STRUCTURES: Heart normal size. No evidence for failure. BONES: No acute findings. HARDWARE: None in the chest. OTHER: No other significant finding. IMPRESSION: NO SIGNIFICANT RADIOGRAPHIC FINDING IN THE CHEST. TECHNICAL DOCUMENTATION: JOB ID: [id number] [employer]- All Rights Reserved Reading location - IP/workstation name: [email or web address]
== END ==
LOC: OD 11:13
PROVIDERS: ATTEND Orthopaedic Surgery
DX: Z01.810 Encounter for preprocedural cardiovascular examination (principal); Z01.811 Encounter for preprocedural respiratory examination; Z01.812 Encounter for preprocedural laboratory examination; E11.9 Type 2 diabetes mellitus without complications
CPT/HCPCS: 36415; 71046; 80048; 81001; 83036; 85025; 93005; 93010

== ENCOUNTER 2019-06-27 01:24 | Emergency (ER) | payer MEDICARE, BC ==
--- NOTE | 2019-06-27 02:38 | RADIOLOGY REPORT (SQ) ---
EXAM DESCRIPTION: RadLex: CT HEAD WITHOUT IV CONTRAST CLINICAL HISTORY: 73 years Female; ams/ fall; TECHNIQUE: Noncontrast CT head. All CT scans at this facility use dose modulation, iterative reconstruction, and/or weight based dosing when appropriate to reduce radiation dose to as low as reasonably achievable. COMPARISON: CT 07/29/2018 FINDINGS: Cerebral atrophy is similar to the prior exam. There is a very small left parafalcine hyperdensity medial to the left frontal lobe, new since prior exam. This measures 10 mm SI by 13 mm AP by 3 mm in thickness. No associated mass effect. No other hyperdense foci.. No acute cortical edema. Ventricles and cisterns are preserved. Visualized portions of paranasal sinuses and mastoids are clear. There is mild posterior parietal/occipital scalp injury. No acute calvarial fracture. IMPRESSION: 1. 3 x 10 x 13 mm left frontal parafalcine hemorrhage, without mass effect. 2. No other intracranial hemorrhage. 3. Cerebral atrophy as on prior exam 4. Mild posterior parietal occipital scalp injury.
--- NOTE | 2019-06-27 02:55 | ER Document Report ---
ED Fall - General Chief Complaint: Fall Injury Stated Complaint: FALL HEAD INJURY Time Seen by Provider: 06/27/19 02:39 Primary Care Provider: BEN FLOREZ MD [Primary Care Provider] - Follow up as needed Notes: Patient is a 73-year-old female that comes emergency department for chief complaint of a fall and head injury at home. She states that she got up from sleeping, fell back and hit the back of her head. She states she is not sure why she fell and she cannot clearly murmur the episode. She states that she remembers feeling stickiness of the back of her head, she states she crawled to her phone and called. She states she thinks she fell around midnight. She states that she has an already broken left shoulder which she has surgery scheduled for. She is on aspirin but no other blood thinners. She is a history of COPD, type 2 diabetes and hypertension. Patient is oriented to person, place, but confused about events. TRAVEL OUTSIDE OF THE [place] IN LAST 30 DAYS: No - Related data Allergies/Adverse Reactions: valsartan [From Diovan] Allergy (Unknown, Verified 06/20/19 13:05) Skin Redness Penicillins Allergy (Verified 06/20/19 13:05) exenatide [From Byetta] Adverse Reaction (Severe, Verified 06/20/19 13:05) Migraine quetiapine [From Seroquel] Adverse Reaction (Verified 06/20/19 13:05) insomnia topiramate [From Topamax] Adverse Reaction (Verified 06/20/19 13:05) vision changes Past Medical History - General Information source: Patient - Social History Smoking Status: Never Smoker Frequency of alcohol use: None Drug Abuse: None Lives with: Alone Family History: Reviewed & Not Pertinent, CAD, Malignancy, Other Patient has suicidal ideation: No Patient has homicidal ideation: No - Past Medical History Cardiac Medical History: Reports: Hx Hypercholesterolemia, Hx Hypertension Denies: Hx Atrial Fibrillation, Hx Congestive Heart Failure, Hx Coronary Artery Disease, Hx Heart Attack, Hx Peripheral Vascular Disease, Hx Pulmonary Embolism, Hx Heart Murmur Pulmonary Medical History: Reports: Hx Asthma, Hx Bronchitis, Hx COPD Denies: Hx Pneumonia, Hx Respiratory Failure, Hx Sleep Apnea, Hx Tuberculosis Neurological Medical History: Denies: Hx Cerebrovascular Accident, Hx Seizures Endocrine Medical History: Reports: Hx Diabetes Mellitus Type 1, Hx Diabetes Mellitus Type 2. Denies: Hx Graves' Disease, Hx Hyperthyroidism, Hx Hypothyroidism Renal/ Medical History: Denies: Hx Kidney Stones, Hx Peritoneal Dialysis Malignancy Medical History: Denies: Hx Lung Cancer GI Medical History: Denies: Hx Gastroesophageal Reflux Disease Musculoskeletal Medical History: Reports Hx Arthritis, Denies Hx Fibromyalgia, Denies Hx Muscular Dystrophy, Denies Hx Systemic Lupus Erythematosus Psychiatric Medical History: Reports: Hx Depression Denies: Hx Bipolar Disorder, Hx Post Traumatic Stress Disorder, Hx Schizophrenia Traumatic Medical History: Reports: Hx Fractures - bilat hips, left shoulder Past Surgical History: Reports: Hx Adenoidectomy, Hx Orthopedic Surgery - Enriqueta ent has had both left and right hip fracture repairs secondary to falls, Hx Tonsillectomy, Other - Cataract, left great toe amputation. Denies: Hx Appendectomy, Hx Bowel Surgery, Hx Section, Hx Cholecystectomy, Hx Coronary Artery Bypass Graft, Hx Gastric Bypass Surgery, Hx Herniorrhaphy, Hx Hysterectomy, Hx Mastectomy, Hx Tubal Ligation - Immunizations Hx Diphtheria, Pertussis, Tetanus Vaccination: Yes Hx Pneumococcal Vaccination: 05/24/11 Review of Systems - Review of Systems Constitutional: No symptoms reported EENT: No symptoms reported Cardiovascular: No symptoms reported Respiratory: No symptoms reported Gastrointestinal: No symptoms reported Genitourinary: No symptoms reported Female Genitourinary: No symptoms reported Musculoskeletal: See HPI Skin: See HPI Hematologic/Lymphatic: No symptoms reported Neurological/Psychological: See HPI Physical Exam - Vital signs Vitals: Resp Pulse Ox 14 97 06/27/19 02:02 06/27/19 02:02 - Notes Notes: GENERAL: Alert, interacts well. No acute distress. HEAD: Normocephalic. Matted hair and blood in the general occipital area worse on the right. There is a 1.5 linear partial-thickness vertical laceration over the occipital scalp in the same area. Small hematoma to the same area. No traumatic findings otherwise. EYES: Pupils equal, round, and reactive to light. Extraocular movements intact. ENT: Oral mucosa moist, tongue midline. Oropharynx unremarkable. Airway patent. Nares patent, no nasal septal hematoma, TM's intact. NECK: Full range of motion. Supple. Trachea midline. LUNGS: Clear to auscultation bilaterally, no wheezes, rales, or rhonchi. No respiratory distress. No signs of trauma. HEART: Regular rate and rhythm. No murmur ABDOMEN: Soft, non-tender. Non-distended. Bowel sounds present in all 4 quadrants. No signs of trauma. GENITOURINARY: Deferred EXTREMITIES: Nontender hips and general lower and upper extremities. There is an old healing abrasion over the left anterior tibial area but this does not a ppear new. Moves all 4 extremities spontaneously. No edema, normal radial and dorsalis pedis pulses bilaterally. No cyanosis. BACK: no cervical, thoracic, lumbar midline tenderness. No saddle anesthesia, normal distal neurovascular exam. Moves all extremities in full range of motion. NEUROLOGICAL: Alert and oriented to person and place but not to night events. Normal speech. Cranial nerves II through XII grossly intact. PSYCH: Normal affect, normal mood. SKIN: Warm, dry, normal turgor. No rashes or lesions noted. Course - Re-evaluation Re-evalutation: On my evaluation patient has no neurological deficits except she cannot remember the events that happened prior to arrival. She is oriented to person and place. She is alert and cooperative. She has a 1.5 cm laceration which is vertical to the right occipital area, hematoma in the area, however she does not have any other signs of trauma. CT of the head shows small left frontal parafalcine hemorrhage without mass- effect. No other acute findings noted except for the hematoma, CT of the neck with no specific acute or traumatic findings. Chest x-ray unremarkable. CBC nonspecific, chemistry shows renal insufficiency but I am unsure if this is new. Mild hyperglycemia. CK is not significantly elevated. Troponin is negative. EKG nonspecific. I am still unsure at this time if patient had a syncopal episode or simply fell and cannot remember this because of postconcussive reasons and intracranial hemorrhage. Discussed with Dr. Álvarez. Wound repaired, patient will be transferred to trauma center because of the intracranial bleed. I spoke with Dr. Tran at [facility] trauma, patient is accepted for transfer. He recommends patient be given 1 g of Keppra IV. I discussed this with patient in detail and she states understanding and agreement with plan. - Vital Signs Vital signs: Temp Pulse Resp BP Pulse Ox 98.1 F 17 133/72 H 93 06/27/19 03:06 06/27/19 03:01 06/27/19 03:01 06/27/19 03:01 - Laboratory Result Diagrams: 06/27/19 01:37 06/27/19 01:37 Laboratory results interpreted by me: 06/27/19 06/27/19 01:37 01:37 WBC 10.6 H Hgb 10.6 L Hct 32.8 L RDW 16.3 H BUN 28 H Creatinine 1.51 H Est GFR ( Amer) 41 L Est GFR (MDRD) Non-Af 34 L Glucose 193 H Creatine Kinase 227 H Albumin 3.4 L Procedures - Laceration/Wound Repair Right occipital scalp Wound length (cm): 1.5 Wound's Depth, Shape: Linear Laceration pre-procedure: Sterile PPE donned, Sterile drapes applied, Shur-Clens applied Wound Repaired With: Caren Number of Sutures: 2 - Davilla Layer Closure?: No Post-procedure NV exam normal: Yes Complications: No Discharge - Discharge Clinical Impression: Intracranial bleed Scalp laceration Qualifiers: Encounter type: initial encounter Qualified Code(s): S01.01XA - Laceration without foreign body of scalp, initial encounter Head injury Qualifiers: Encounter type: initial encounter Qualified Code(s): S09.90XA - Unspecified injury of head, initial encounter Condition: Stable Disposition: [facility] Referrals: BEN FLOREZ MD [Primary Care Provider] - Follow up as needed
[2019-06-27 03:03] LABS: ABSOLUTE BASOPHILS # (AUTO) 0.1 10^3/uL (0.0-0.2); ABSOLUTE EOSINOPHILS # (AUTO) 0.5 10^3/uL (0.0-0.6); ABSOLUTE MONOCYTES (AUTO) 0.8 10^3/uL (0.1-1.4); ABSOLUTE NEUT (AUTO) 7.3 10^3/uL (1.7-8.2); BASOPHILS % (AUTO) 0.6 % (0-2); EOSINOPHILS % (AUTO) 4.7 % (0-6); HEMATOCRIT 32.8 % (36.0-47.0); HEMOGLOBIN 10.6 g/dL (12.0-15.5); LYMPHOCYTES % (AUTO) 18.7 % (13-45); MEAN CORPUSCULAR HEMOGLOBIN 27.2 pg (27.0-33.4); MEAN CORPUSCULAR HGB CONC 32.3 g/dL (32.0-36.0); MEAN CORPUSCULAR VOLUME 84 fl (80-97); MONOCYTES % (AUTO) 7.2 % (3-13); PLATELET COUNT 281 10^3/uL (150-450); RED CELL DISTRIBUTION WIDTH 16.3 % (11.5-14.0); SEGMENTED NEUTROPHILS % (AUTO) 68.8 % (42-78); TOTAL CELLS COUNTED % (AUTO) 100 %; WHITE BLOOD COUNT 10.6 10^3/uL (4.0-10.5)
[2019-06-27 03:09] LABS: INTERNATIONAL RATION (INR) 0.93; PARTIAL THROMBOPLASTIN TIME 30.3 SEC (23.5-35.8); PROTHROMBIN TIME 12.5 SEC (11.4-15.4)
[2019-06-27 03:21] LABS: ALBUMIN 3.4 g/dL (3.5-5.0); ALKALINE PHOSPHATASE 94 U/L (38-126); ANION GAP 10 (5-19); ASPARTATE AMINO TRANSFERASE 17 U/L (14-36); BILIRUBIN,DIRECT 0.2 mg/dL (0.0-0.4); BILIRUBIN,TOTAL 0.2 mg/dL (0.2-1.3); BLOOD UREA NITROGEN 28 mg/dL (7-20); CALCIUM 8.7 mg/dL (8.4-10.2); CARBON DIOXIDE 27 mmol/L (22-30); CHLORIDE 101 mmol/L (98-107); CREATINE KINASE 227 U/L (30-135); GLUCOSE 193 mg/dL (75-110); POTASSIUM 4.3 mmol/L (3.6-5.0); TOTAL PROTEIN 6.5 g/dL (6.3-8.2)
--- NOTE | 2019-06-27 03:50 | RADIOLOGY REPORT (SQ) ---
AP Portable chest: 06/27/2019 2:48 AM NURSE WOUND CARE History: 73-year old patient with syncope. Comparison: Chest radiograph performed 06/27/2019. Findings: The cardiomediastinal silhouette is normal in size. No pneumothorax is seen. No acute airspace opacities are seen. No discrete pleural effusion is apparent. Atherosclerotic calcifications are seen at the aortic arch. Impression: No acute airspace opacities are seen.
--- NOTE | 2019-06-27 04:02 | RADIOLOGY REPORT (SQ) ---
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 Sagittal and coronal reconstructions were also reviewed. This exam was performed according to our departmental dose-optimization program, which includes automated exposure control, adjustment of the mA and/or KV according to the patient's size and/or use of iterative reconstruction technique. COMPARISON: None available INDICATION: 73-year old patient with neck pain, fall. FINDINGS: The vertebral bodies appear well aligned. The vertebral body heights appear well maintained. No significant pre-vertebral soft tissue swelling is noted. No definite fracture or subluxation is noted. No significant intervertebral disc space narrowing is seen. The visualized brain parenchyma appears unremarkable. There is partial opacification of the left mastoid air cells, which can be seen with underlying mastoiditis. The craniocervical junction is unremarkable. There is mild to moderate right neural foraminal narrowing at C4/C5. There is a disc osteophyte also seen at C4/C5 which may contribute to at least mild to moderate thecal sac compression. IMPRESSION: There are no findings to suggest an acute fracture or subluxation within the cervical spine. There is partial opacification of the left mastoid air cells, which can be seen with mastoiditis. There are multilevel degenerative changes seen at the cervical spine, most pronounced at C4/C5.
[2019-06-27] MEDS ORDERED: LEVETIRACETAM 1000 MG/NACL-ISO 1,000 MG/100 ML RTUPB IV ONE (04:28)
[2019-06-27] MEDS ORDERED: ACETAMINOPHEN 325 MG TABLET PO ONE (04:35)
[2019-06-27 05:32] LABS: APPEARANCE,URINE CLOUDY; BILIRUBIN,URINE NEGATIVE (NEGATIVE); COLOR,URINE YELLOW; GLUCOSE, URINE NEGATIVE (NEGATIVE); KETONES,URINE NEGATIVE (NEGATIVE); LEUKOCYTE ESTERASE,URINE LARGE (NEGATIVE); NITRITE,URINE NEGATIVE (NEGATIVE); PROTEIN,URINE 100 mg/dL (NEGATIVE); URINE SPECIFIC GRAVITY 1.013; UROBILINOGEN,URINE NEGATIVE mg/dL (<2.0)
[2019-06-27] MEDS ORDERED: NORMAL SALINE 500 ML IV ONE (06:32)
[2019-06-27 08:18] VITALS: BP 109/49
--- NOTE | 2019-06-27 16:17 | EKG REPORT ---
SEVERITY:- ABNORMAL ECG - SINUS RHYTHM VENTRICULAR PREMATURE COMPLEX FIRST DEGREE AV BLOCK BORDERLINE R WAVE PROGRESSION, ANTERIOR LEADS : Confirmed by: Barbi Zurita MD 27-Jun-2019 16:17:24
== END 2019-06-27 08:25 | disposition short-term general hospital (02) ==
LOC: ER 01:24
DX: S06.309A Unspecified focal traumatic brain injury with loss of consciousness of unspecified duration, initial encounter (principal); S01.01XA Laceration without foreign body of scalp, initial encounter; W06.XXXA Fall from bed, initial encounter; Y92.003 Bedroom of unspecified non-institutional (private) residence as the place of occurrence of the external cause; R41.0 Disorientation, unspecified; E11.65 Type 2 diabetes mellitus with hyperglycemia; N28.9 Disorder of kidney and ureter, unspecified; J44.9 Chronic obstructive pulmonary disease, unspecified; I10 Essential (primary) hypertension; Z79.82 Long term (current) use of aspirin; Z88.8 Allergy status to other drugs, medicaments and biological substances; Z88.0 Allergy status to penicillin
CPT/HCPCS: 93005; 99285; 96360; 96361; 36415; 82550; 85025; 85610; 85730; 80053; 81001; 84484; 71045; 70450; 72125; 93010; 12001; A9270; J7040; J1953

== ENCOUNTER 2019-10-13 10:38 | Inpatient (IN) | payer MEDICARE, BC, OTHER ==
[2019-10-13 11:50] LABS: ABSOLUTE BASOPHILS # (AUTO) 0.1 10^3/uL (0.0-0.2); ABSOLUTE LYMPHOCYTES (AUTO) 0.9 10^3/uL (0.5-4.7); ABSOLUTE MONOCYTES (AUTO) 0.5 10^3/uL (0.1-1.4); BASOPHILS % (AUTO) 0.4 % (0-2); HEMATOCRIT 40.4 % (36.0-47.0); HEMOGLOBIN 12.4 g/dL (12.0-15.5); LYMPHOCYTES % (AUTO) 5.9 % (13-45); MEAN CORPUSCULAR HEMOGLOBIN 22.6 pg (27.0-33.4); MEAN CORPUSCULAR HGB CONC 30.8 g/dL (32.0-36.0); MEAN CORPUSCULAR VOLUME 73 fl (80-97); MONOCYTES % (AUTO) 3.3 % (3-13); PLATELET COUNT 346 10^3/uL (150-450); RED CELL DISTRIBUTION WIDTH 19.6 % (11.5-14.0); SEGMENTED NEUTROPHILS % (AUTO) 90.4 % (42-78); TOTAL CELLS COUNTED % (AUTO) 100 %; WHITE BLOOD COUNT 15.5 10^3/uL (4.0-10.5)
[2019-10-13 12:02] LABS: INTERNATIONAL RATION (INR) 1.15; PROTHROMBIN TIME 14.7 SEC (11.4-15.4)
--- NOTE | 2019-10-13 12:03 | RADIOLOGY REPORT (SQ) ---
EXAM DESCRIPTION: CT HEAD WITHOUT IMAGES COMPLETED DATE/TIME: 10/13/2019 11:45 am REASON FOR STUDY: fall, prior bleed after fall COMPARISON: 06/27/2019 TECHNIQUE: Axial images acquired through the brain without intravenous contrast. Images reviewed wi th bone, brain and subdural windows. Additional sagittal and coronal reconstructions were generated. Images stored on PACS. All CT scanners at this facility use dose modulation, iterative reconstruction, and/or weight based d osing when appropriate to reduce radiation dose to as low as reasonably achievable (ALARA). [facility]: Dose Right [facility]: CareDose [facility]: Dose Right [facility]: Teradose 4D [facility]: [place] RADIATION DOSE: CT Rad equipment meets quality standard of care and radiation dose reduction techniq ues were employed. CTDIvol: 53.2 mGy. DLP: 1070 mGy-cm.mGy. LIMITATIONS: None. FINDINGS: VENTRICLES: Prominent. CEREBRUM: No masses. No hemorrhage. No midline shift. Areas of low density in the white matter mos t likely due to chronic micro-vascular ischemic change. No evidence for acute infarction. Parafalci ne hematoma previously described has resolved. CEREBELLUM: No masses. No hemorrhage. No alteration of density. No evidence for acute infarction. EXTRAAXIAL SPACES: Age-related involutional change. No fluid collections. No masses. ORBITS AND GLOBE: No intra- or extraconal masses. Normal contour of globe without masses. CALVARIUM: No fracture. PARANASAL SINUSES: No fluid or mucosal thickening. SOFT TISSUES: No mass or hematoma. OTHER: No other significant finding. IMPRESSION: CHRONIC CHANGES OF ATROPHY AND MICROVASCULAR ISCHEMIA. NO ACUTE PROCESS. SMALL MIDLINE HEMATOMA PREVIOUSLY DESCRIBED HAS RESOLVED. EVIDENCE OF ACUTE STROKE: NO. TECHNICAL DOCUMENTATION: JOB ID: [id number] Quality ID # [id number]: Final reports with documentation of one or more dose reduction techniques (e.g., Au tomated exposure control, adjustment of the mA and/or kV according to patient size, use of iterative reconstruction technique) 2010 [employer]- All Rights Reserved Reading location - IP/workstation name: [email or web address]
[2019-10-13 12:07] LABS: ALBUMIN 3.8 g/dL (3.5-5.0); ALKALINE PHOSPHATASE 136 U/L (38-126); ANION GAP 9 (5-19); ASPARTATE AMINO TRANSFERASE 159 U/L (14-36); BILIRUBIN,TOTAL 0.7 mg/dL (0.2-1.3); BLOOD UREA NITROGEN 39 mg/dL (7-20); CALCIUM 8.6 mg/dL (8.4-10.2); CARBON DIOXIDE 29 mmol/L (22-30); CHLORIDE 101 mmol/L (98-107); GLUCOSE 204 mg/dL (75-110)
--- NOTE | 2019-10-13 12:32 | ER Document Report ---
Entered by REINA GUTIERREZ SCRIBE 10/13/19 1109 Acting as scribe for:GEMA LOVETT MD ED General - General Chief Complaint: Low Blood Sugar Stated Complaint: HYPOGLYCEMIA Time Seen by Provider: 10/13/19 11:00 Primary Care Provider: BARBARA LANTIGUA MD [Primary Care Provider] - Follow up as needed Mode of Arrival: Medic Information source: Patient Notes: This 73 year old female patient presents to the emergency department today with complaints of hypoglycemia according to EMS notes. On scene the patient had a BGL of 22, and she was given 30 grams of oral glucose and D10 with a BGL of 215 when arriving here. Patient reports that she normally takes her Lantus in the morning and she sometimes eats before and sometimes doesn't. Patient is unable to really provide much meaningful history. TRAVEL OUTSIDE OF THE [place] IN LAST 30 DAYS: No - Related Data Allergies/Adverse Reactions: valsartan [From Diovan] Allergy (Unknown, Verified 10/13/19 10:56) Skin Redness Penicillins Allergy (Verified 10/13/19 10:56) exenatide [From Byetta] Adverse Reaction (Severe, Verified 10/13/19 10:56) Migraine quetiapine [From Seroquel] Adverse Reaction (Verified 10/13/19 10:56) insomnia topiramate [From Topamax] Adverse Reaction (Verified 10/13/19 10:56) vision changes Past Medical History - General Information source: Patient - Social History Smoking Status: Current Every Day Smoker Cigarette use (# per day): Yes Chew tobacco use (# tins/day): No Frequency of alcohol use: former alcoholic Drug Abuse: None Lives with: Family Family History: Reviewed & Not Pertinent, CAD, Malignancy, Other Patient has homicidal ideation: No - Past Medical History Cardiac Medical History: Reports: Hx Hypercholesterolemia, Hx Hypertension Pulmonary Medical History: Reports: Hx Asthma, Hx Bronchitis, Hx COPD Endocrine Medical History: Reports: Hx Diabetes Mellitus Type 1, Hx Diabetes Mellitus Type 2 Musculoskeletal Medical History: Reports Hx Arthritis Psychiatric Medical History: Reports: Hx Depression Traumatic Medical History: Reports: Hx Fractures - bilat hips, left shoulder Past Surgical History: Reports: Hx Adenoidectomy, Hx Orthopedic Surgery - Patient has had both left and right hip fracture repairs secondary to falls, Hx Tonsillectomy, Other - Cataract, left great toe amputation - Immunizations Hx Diphtheria, Pertussis, Tetanus Vaccination: Yes Hx Pneumococcal Vaccination: 05/24/11 Review of Systems - Review of Systems Constitutional: See HPI, Other - hypoglycemia EENT: No symptoms reported Cardiovascular: No symptoms reported Respiratory: No symptoms reported Gastrointestinal: No symptoms reported Genitourinary: No symptoms reported Female Genitourinary: No symptoms reported Musculoskeletal: No symptoms reported Skin: No symptoms reported Hematologic/Lymphatic: No symptoms reported Neurological/Psychological: No symptoms reported -: Yes All other systems reviewed and negative Physical Exam - Vital signs Vitals: Temp 98.2 F 10/13/19 10:46 - Notes Notes: Physical Exam: General: Alert. HEENT: Normocephalic. Atraumatic. PERRL. Extraocular movements intact. Oropharynx clear. Neck: Supple. Non-tender. Respiratory: No respiratory distress. Clear and equal breath sounds bilaterally. Cardiovascular: Regular rate and rhythm. Abdominal: Normal Inspection. Non-tender. No distension. Normal Bowel Sounds. Back: No gross abnormalities. Extremities: Moves all four extremities. Upper extremities: Old bruising to the anterior aspect of the left shoulder with associated tenderness on palpation. Lower extremities: Left knee has a small effusion. There is swelling and tenderness to palpation along with overlying ecchymosis to the left knee as well. Patient is resistant to fully extend the left leg. Neurological: Confused at baseline Psychological: Normal affect. Normal Mood. Skin: Diffusely spread ecchymosis in various stages of healing. There are multiple areas of scabbed over skin that looks like it has been picked at. Course - Vital Signs Vital signs: Temp Pulse Resp BP Pulse Ox 98.2 F 24 H 173/104 H 96 10/13/19 10:46 10/13/19 14:00 10/13/19 14:00 10/13/19 14:00 - Laboratory Result Diagrams: 10/13/19 11:28 10/13/19 11:28 Laboratory results interpreted by me: 10/13/19 10/13/19 10/13/19 11:28 11:28 12:43 WBC 15.5 H RBC 5.50 H MCV 73 L MCH 22.6 L MCHC 30.8 L RDW 19.6 H Lymph % (Auto) 5.9 L Absolute Neuts (auto) 14.0 H Seg Neutrophils % 90.4 H BUN 39 H Creatinine 1.31 H Est GFR ( Amer) 48 L Est GFR (MDRD) Non-Af 40 L Glucose 204 H AST 159 H ALT 37 H Alkaline Phosphatase 136 H Creatine Kinase 4308 H Urine Protein >=500 H Urine Ketones TRACE H Urine Blood LARGE H - Diagnostic Test Radiology reviewed: Image reviewed, Reports reviewed - CT scan of the head shows chronic changes with nothing acute. Chest x-ray does not show acute cardiopulmonary process. Left shoulder x-ray shows chronic humeral head fracture with no acute changes. Left knee shows osteoarthritis with chondrocalcinosis with no acute changes. - EKG Interpretation by Me EKG shows normal: Sinus rhythm, [place], ST-T Waves. abnormal: Intervals - Borderline prolonged QT interval, QRS Complexes - Borderline inferior Q's, borderline R wave progression anterior leads. Rate: Tachycardia - 107 Rhythm: PVC's - Consults Dr. Gamboa Time consulted: 13:46 Consulted provider: will come to ER Discharge - Discharge Clinical Impression: Hypoglycemia, Frequent falls, Dehydration Dementia Qualifiers: Dementia type: unspecified type Dementia behavioral disturbance: without behavioral disturbance Qualified Code(s): F03.90 - Unspecified dementia without behavioral disturbance Rhabdomyolysis Qualifiers: Rhabdomyolysis type: non-traumatic Qualified Code(s): M62.82 - Rhabdomyolysis Leukocytosis Qualifiers: Leukocytosis type: unspecified Qualified Code(s): D72.829 - Elevated white blood cell count, unspecified Hypertension Qualifiers: Hypertension type: essential hypertension Qualified Code(s): I10 - Essential (primary) hypertension Condition: Stable Disposition: ADMITTED OBSERVATION Admitting Provider: Bee (Hospitalist) Unit Admitted: Medical Floor Referrals: BARBARA LANTIGUA MD [Primary Care Provider] - Follow up as needed I personally performed the services described in the documentation, reviewed and edited the documentation which was dictated to the scribe in my presence, and it accurately records my words and actions.
--- NOTE | 2019-10-13 12:51 | RADIOLOGY REPORT (SQ) ---
EXAM DESCRIPTION: KNEE LEFT 3 VIEWS IMAGES COMPLETED DATE/TIME: 10/13/2019 12:23 pm REASON FOR STUDY: Fall, bruise, effusion COMPARISON: None. NUMBER OF VIEWS: Three views. TECHNIQUE: AP, lateral, and sunrise patella radiographic images acquired of the left knee. LIMITATIONS: None. FINDINGS: MINERALIZATION: Normal. BONES: No acute fracture or dislocation. No worrisome bone lesions. JOINT: Joint space narrowing in all compartments. Chondrocalcinosis laterally. SOFT TISSUES: No soft tissue swelling. No radio-opaque foreign body. OTHER: No other significant finding. IMPRESSION: Osteoarthritis. Chondrocalcinosis. No acute fracture or dislocation. TECHNICAL DOCUMENTATION: JOB ID: [id number] 2010 [employer]- All Rights Reserved Reading location - IP/workstation name: [email or web address]
--- NOTE | 2019-10-13 12:52 | RADIOLOGY REPORT (SQ) ---
EXAM DESCRIPTION: CHEST 2 VIEWS IMAGES COMPLETED DATE/TIME: 10/13/2019 12:23 pm REASON FOR STUDY: Follows, hypoglycemia, dementia COMPARISON: 06/27/2019 EXAM PARAMETERS: NUMBER OF VIEWS: two views TECHNIQUE: Digital Frontal and Lateral radiographic views of the chest acquired. RADIATION DOSE: NA LIMITATIONS: none FINDINGS: LUNGS AND PLEURA: No opacities, masses or pneumothorax. No pleural effusion. MEDIASTINUM AND HILAR STRUCTURES: No masses or contour abnormalities. HEART AND VASCULAR STRUCTURES: Heart normal size. No evidence for failure. BONES: Unchanged with bilateral proximal humerus fractures. HARDWARE: None in the chest. OTHER: No other significant finding. IMPRESSION: NO ACUTE RADIOGRAPHIC FINDING IN THE CHEST. TECHNICAL DOCUMENTATION: JOB ID: [id number] 2010 [employer]- All Rights Reserved Reading location - IP/workstation name: [email or web address]
--- NOTE | 2019-10-13 12:52 | RADIOLOGY REPORT (SQ) ---
EXAM DESCRIPTION: SHOULDER LEFT 2 OR MORE VIEWS IMAGES COMPLETED DATE/TIME: 10/13/2019 12:23 pm REASON FOR STUDY: Old fracture, new fall, new bruising COMPARISON: 03/31/2018, chest x-ray dated 06/27/2019 NUMBER OF VIEWS: Three views. TECHNIQUE: Internal rotation, external rotation, and Y view images acquired of the left shoulder. LIMITATIONS: None. FINDINGS: MINERALIZATION: Normal. BONES: Comminuted left humeral head fracture. Allowing for differences technique I can see no the si gnificant change from prior studies. JOINTS: No dislocation. VISUALIZED LUNGS AND RIBS: No pneumothorax. No rib fracture. SOFT TISSUES: No radiopaque foreign body. OTHER: No other significant finding. IMPRESSION: Chronic left humeral head fracture. No obvious acute findings. TECHNICAL DOCUMENTATION: JOB ID: [id number] 2010 [email or web address]- All Rights Reserved Reading location - IP/workstation name: [email or web address]
[2019-10-13 12:56] LABS: CREATINE KINASE 4308 U/L (30-135)
[2019-10-13 13:00] LABS: APPEARANCE,URINE SLIGHTLY-CLOUDY; BILIRUBIN,URINE NEGATIVE (NEGATIVE); COLOR,URINE YELLOW; GLUCOSE, URINE NEGATIVE (NEGATIVE); KETONES,URINE TRACE mg/dL (NEGATIVE); LEUKOCYTE ESTERASE,URINE NEGATIVE (NEGATIVE); NITRITE,URINE NEGATIVE (NEGATIVE); PROTEIN,URINE >=500 mg/dL (NEGATIVE); URINE SPECIFIC GRAVITY 1.025; UROBILINOGEN,URINE NEGATIVE mg/dL (<2.0)
[2019-10-13] MEDS ORDERED: NORMAL SALINE 1000 ML 1,000 ML IV ONE (13:11)
[2019-10-13] MEDS ORDERED: POTASSI CL 20 MEQ/D5-1/2NS 1L 1,000 ML IV PRN (14:39)
[2019-10-13] MEDS ORDERED: DEXTROSE 40% GEL 15 GM TUBE PO PRN ×2 (14:44)
[2019-10-13] MEDS ORDERED: DEXTROSE 50%-WATER 25 GM/50 ML DISP.SYRIN IV PRN ×2 (14:44)
[2019-10-13] MEDS ORDERED: GLUCAGON,HUMAN RECOMB 1 MG INJ IM PRN (14:44)
[2019-10-13] MEDS ORDERED: HYDRALAZINE HCL INJ/PF 20 MG/1 ML SDV IV ONE (14:55)
--- NOTE | 2019-10-13 15:05 | PDOC H&P ---
History of Present Illness Admission Date/PCP: BARBARA LANTIGUA MD History of Present Illness: VIVEK MAGUIRE is a 73 year old female with a history of COPD and diabetes insulin-dependent who arrived this morning by EMS, who reported the patient had a low blood sugar of 22 upon arrival at the scene. I do not have the EMS scene run sheet, and the patient is not a meaningful historian in any way whatsoever. It is not clear to me at this time who called EMS, but apparently someone did, and when they found her her blood sugar was low. She was given interventions to help bring it up. She says that she takes Lantus twice a day, but she cannot remember if she took it this morning. She said she took it last night, but she cannot remember anything else about yesterday, such as what she ate and at what times of the day, or whether or not she had any visitors in her house yesterday. She lives alone in [place]. Her doctor is Dr. Lantigua. In the ER she was found to have a leukocytosis, elevated BUN to creatinine ratio, and a with mild rhabdomyolysis. She does not know much about her medical history, but she does know she is diabetic and has COPD. She does not know what medications she takes, but she says that she takes 15 of them, I have no way to confirm at this time whether or not that is true. Her blood pressure is elevated in the emergency department. I am told that the patient's house was in a mass with a lot of trash and clutter, and that there was a wheelchair at their but there was no way for the wheelchair to move around due to obstruction from all the c lutter. Past Medical History Cardiac Medical History: Reports: Hyperlipidema, Hypertension Denies: Atrial Fibrillation, Congestive Heart Failure, Coronary Artery Disease, Myocardial Infarction, Peripheral Vascular Disease, Pulmonary Embolism, Heart Murmur Pulmonary Medical History: Reports: Asthma, Bronchitis, Chronic Obstructive P ulmonary Disease (COPD) Denies: Pneumonia, Respiratory Failure, Sleep Apnea, Tuberculosis Neurological Medical History: Denies: Seizures Endocrine Medical History: Reports: Diabetes Mellitus Type 1, Diabetes Mellitus Type 2 Denies: Hyperthyroidism, Hypothyroidism Malignancy Medical History: Denies: Lung Cancer GI Medical History: Denies: Gastroesophageal Reflux Disease Musculoskeltal Medical History: Reports: Arthritis Denies: Fibromyalgia Psychiatric Medical History: Reports: Depression Denies: Bipolar Disorder, Post Traumatic Stress Disorder Hematology: Denies: Anemia, Bleeding Tendencies Past Surgical History Past Surgical History: Reports: Adenoidectomy, Orthopedic Surgery - Patient has had both left and right hip fracture repairs secondary to falls, Tonsillectomy, Other - Cataract, left great toe amputation Denies: Amputation, Appendectomy, Section, Cholecystectomy, Coronary Artery Bypass Graft, Gastric Bypass Surgery, Herniorrhaphy, Hysterectomy, Mastectomy, Tubal Ligation Social History Lives with: Family Smoking Status: Current Every Day Smoker Electronic Cigarette use?: No Frequency of Alcohol Use: Heavy Hx Recreational Drug Use: No Drugs: None Hx Prescription Drug Abuse: No Family History Family History: Reviewed & Not Pertinent, CAD, Malignancy, Other Parental Family History Reviewed: No - Unable to obtain Children Family History Reviewed: No - Unable to obtain Sibling(s) Family History Reviewed.: No - Unable to obtain Medication/Allergy Home Medications: Atorvastatin Calcium [Lipitor 10 mg Tablet] 10 mg PO QPM 10/08/18 Diltiazem HCl [Cardizem Cd 240 mg Capsule.cr] 240 mg PO DAILY 10/08/18 Insulin Glargine,Hum.rec.anlog [Lantus Insulin 100 Unit/1 ml 10 ml] 30 unit SUBCUT BID 10/08/18 Pregabalin [Lyrica 100 mg Capsule] 100 mg PO QHS 10/08/18 Folic Acid [Folvite 1 mg Tablet] 1 mg PO QHS tablet 10/21/18 Venlafaxine HCl ER [Effexor Xr 75 mg Cap.sr] 150 mg PO DAILY #0 cap.sr.24h 10/21/18 Metformin HCl 500 mg PO BID 06/20/19 Pramipexole Di-HCl [Pramipexole ER] 3.75 mg PO DAILY 06/20/19 Spironolactone 50 mg PO DAILY 06/20/19 Tiotropium Hood [Spiriva Handihaler 5 Cap/Kit (18 Mcg/Cap)] 1 puff IN DAILY 06/20/19 Allergies/Adverse Reactions: valsartan [From Diovan] Allergy (Unknown, Verified 10/13/19 10:56) Skin Redness Penicillins Allergy (Verified 10/13/19 10:56) exenatide [From Byetta] Adverse Reaction (Severe, Verified 10/13/19 10:56) Migraine quetiapine [From Seroquel] Adverse Reaction (Verified 10/13/19 10:56) insomnia topiramate [From Topamax] Adverse Reaction (Verified 10/13/19 10:56) vision changes Review of Systems ROS unobtainable: Due to mental status - Patient is unreliable as a historian at this time Physical Exam Vital Signs: Temp Pulse Resp BP Pulse Ox 98.2 F 24 H 173/104 H 96 10/13/19 10:46 10/13/19 14:00 10/13/19 14:00 10/13/19 14:00 General appearance: PRESENT: no acute distress, cooperative, disheveled Head exam: PRESENT: atraumatic, normocephalic Eye exam: PRESENT: EOMI, PERRLA. ABSENT: conjunctival injection, nystagmus, scleral icterus Ear exam: PRESENT: normal external ear exam Mouth exam: PRESENT: dry mucosa, neck supple Teeth exam: PRESENT: poor dentation Throat exam: ABSENT: post pharyngeal erythema Neck exam: PRESENT: full ROM. ABSENT: carotid bruit, JVD, lymphadenopathy, meningismus, tenderness, thyromegaly Respiratory exam: PRESENT: clear to auscultation lauren, symmetrical, unlabored. ABSENT: accessory muscle use, chest wall tenderness, crackles, prolonged expiratory phas, rhonchi, tachypnea, wheezes Cardiovascular exam: PRESENT: +S1, +S2, tachycardia. ABSENT: diastolic murmur, systolic murmur Pulses: PRESENT: normal carotid pulses Vascular exam: PRESENT: normal capillary refill GI/Abdominal exam: PRESENT: normal bowel sounds, soft. ABSENT: distended, guarding, rebound, tenderness Extremities exam: ABSENT: clubbing, pedal edema Musculoskeletal exam: PRESENT: deformity - She is missing the great toe of her left foot. The tip of the second toe of the left foot is missing. There appears to be an old nonhealing wound on the tip of the third toe of the left foot., other - She appears to have some deformity of both of her shoulders, but is very subtle and no pain was elicited on examination, her range of motion is limited in her shoulders Neurological exam: PRESENT: awake, oriented to person, oriented to place, CN II- XII grossly intact, motor sensory deficit - Generalized weakness. ABSENT: oriented to time, oriented to situation Psychiatric exam: PRESENT: flat affect Focused psych exam: PRESENT: other - Memory is impaired Skin exam: PRESENT: dry, warm, other - She has dry flaking skin and evidence of chronic venous insufficiency of the lower extremities. She also has evidence of bruising predominantly on her distal lower extremities, distal upper extremities, and a little bit on her chest Results Laboratory Results: 10/13/19 11:28 10/13/19 11:28 10/13/19 10/13/19 10/13/19 11:28 11:28 12:43 WBC 15.5 H RBC 5.50 H Hgb 12.4 Hct 40.4 MCV 73 L MCH 22.6 L MCHC 30.8 L RDW 19.6 H Plt Count 346 Seg Neutrophils % 90.4 H Sodium 138.6 Potassium 5.0 Chloride 101 Carbon Dioxide 29 Anion Gap 9 BUN 39 H Creatinine 1.31 H Est GFR ( Amer) 48 L Glucose 204 H Calcium 8.6 Total Bilirubin 0.7 AST 159 H Alkaline Phosphatase 136 H Total Protein 7.0 Albumin 3.8 Urine Color YELLOW Urine Appearance SLIGHTLY-CLOUDY Urine pH 5.0 Ur Specific Presho 1.025 Urine Protein >=500 H Urine Glucose (UA) NEGATIVE Urine Ketones TRACE H Urine Blood LARGE H Urine Nitrite NEGATIVE Ur Leukocyte Esterase NEGATIVE Urine WBC (Auto) 4 Urine RBC (Auto) 1 10/13/19 10/13/19 11:28 11:28 Creatine Kinase 4308 H Troponin I 0.036 Impressions: Head CT 10/13/19 11:09 IMPRESSION: CHRONIC CHANGES OF ATROPHY AND MICROVASCULAR ISCHEMIA. NO ACUTE PROCESS. SMALL MIDLINE HEMATOMA PREVIOUSLY DESCRIBED HAS RESOLVED. EVIDENCE OF ACUTE STROKE: NO. Knee X-Ray 10/13/19 11:11 IMPRESSION: Osteoarthritis. Chondrocalcinosis. No acute fracture or dislocation. Shoulder X-Ray 10/13/19 11:11 IMPRESSION: Chronic left humeral head fracture. No obvious acute findings. Chest X-Ray 10/13/19 11:12 IMPRESSION: NO ACUTE RADIOGRAPHIC FINDING IN THE CHEST. Assessment and Plan - Diagnosis (1) Hypoglycemia Is this a current diagnosis for this admission?: Yes Plan: She probably took her Lantus, at least last night and possibly this morning, and probably did not eat. I believe it was told EMS said they did not see any food anywhere in the house. We will hold off on any long-acting hypoglycemic m edications, give her some fluids with some dextrose until we see that her blood sugars are going to trend up, let her eat, and put her on a as needed sliding scale. (2) Dehydration Is this a current diagnosis for this admission?: Yes Plan: IV fluids, will follow urine output and the trend in her BUN to creatinine ratio (3) Current every day smoker Is this a current diagnosis for this admission?: Yes Plan: Counseled regarding the dangers of cigarette smoking and the adverse effects on her health, recommended abstinence (4) Hypertension Qualifiers: Hypertension type: essential hypertension Qualified Code(s): I10 - Essential (primary) hypertension Is this a current diagnosis for this admission?: Yes Plan: Got some as needed hydralazine orders, but we need to find out what medication she was on at home, and if she was on anything for blood pressure will get restarted. (5) Leukocytosis Qualifiers: Leukocytosis type: unspecified Qualified Code(s): D72.829 - Elevated white blood cell count, unspecified Is this a current diagnosis for this admission?: Yes Plan: I suspect that this is stress response. No evidence of infection. (6) Rhabdomyolysis Qualifiers: Rhabdomyolysis type: non-traumatic Qualified Code(s): M62.82 - Rhab domyolysis Is this a current diagnosis for this admission?: Yes Plan: Very mild, should resolve with some IV fluids, probably from her being on the floor for an undetermined period of time (7) Alcohol use disorder Is this a current diagnosis for this admission?: Yes Plan: She claims she does not drink, but this is in her history. We will monitor for signs of withdrawal. (8) COPD (chronic obstructive pulmonary disease) Qualifiers: COPD type: unspecified COPD Qualified Code(s): J44.9 - Chronic obstructive pulmonary disease, unspecified Is this a current diagnosis for this admission?: Yes Plan: Not acutely exacerbated, will find out what medication she is on at home and resume them (9) Diabetes mellitus type 2 in nonobese Is this a current diagnosis for this admission?: Yes Plan: Sliding scale for now as noted previously - Time Time Spent with patient: 35 or more minutes
[2019-10-13] MEDS: INSULIN LISPRO 100 UNIT/ML 3 ML VIAL SUBCUT SCH ×2 (16:23→21:22)
[2019-10-13] MEDS ORDERED: DEXTROSE 5%-1/2 NORMAL SALINE 1,000 ML IV PRN (17:11)
--- NOTE | 2019-10-13 18:49 | EKG REPORT ---
SEVERITY:- ABNORMAL ECG - SINUS TACHYCARDIA VENTRICULAR PREMATURE COMPLEX BORDERLINE INFERIOR Q WAVES BORDERLINE R WAVE PROGRESSION, ANTERIOR LEADS BORDERLINE PROLONGED QT INTERVAL : Confirmed by: Barbi Zurita MD 13-Oct-2019 18:48:24
[2019-10-14 06:40] LABS: HEMATOCRIT 32.9 % (36.0-47.0); MEAN CORPUSCULAR HEMOGLOBIN 22.6 pg (27.0-33.4); MEAN CORPUSCULAR HGB CONC 31.2 g/dL (32.0-36.0); MEAN CORPUSCULAR VOLUME 72 fl (80-97); PLATELET COUNT 281 10^3/uL (150-450); RED BLOOD COUNT 4.55 10^6/uL (3.72-5.28); RED CELL DISTRIBUTION WIDTH 19.8 % (11.5-14.0); WHITE BLOOD COUNT 12.2 10^3/uL (4.0-10.5)
[2019-10-14 06:42] LABS: HEMOGLOBIN 10.3 g/dL (12.0-15.5)
[2019-10-14 06:52] LABS: ANION GAP 6 (5-19); BLOOD UREA NITROGEN 40 mg/dL (7-20); CALCIUM 7.5 mg/dL (8.4-10.2); CARBON DIOXIDE 24 mmol/L (22-30); CHLORIDE 103 mmol/L (98-107); GLUCOSE 152 mg/dL (75-110)
[2019-10-14 06:58] LABS: POTASSIUM 3.7 mmol/L (3.6-5.0)
[2019-10-14 07:12] LABS: CREATINE KINASE 2827 U/L (30-135)
[2019-10-14] MEDS: INSULIN LISPRO 100 UNIT/ML 3 ML VIAL SUBCUT SCH ×4 (07:56→21:06)
[2019-10-14] MEDS ORDERED: ALBUTEROL SULFATE HFA (90 MCG/PUFF) 200 PUFF/8.5 GM MDI IH PRN (10:00)
[2019-10-14] MEDS: FOLIC ACID 1 MG TABLET PO SCH (10:34)
[2019-10-14] MEDS: VENLAFAXINE HCL 75 MG CAP.SR.24H PO SCH (10:35)
[2019-10-14] MEDS: RINGERS SOLUTION,LACTATED 1,000 ML IV PRN (10:46)
--- NOTE | 2019-10-14 16:25 | PDOC PROGRESS REPORT ---
Subjective Progress Note for:: 10/14/19 Subjective:: No adverse events overnight. Blood sugar started to trend up. Her creatinine actually got a little bit worse but overall she looks a lot better today. She is more alert and interactive and is better able to answer questions. She says she has not urinated but the chart says she is put out 550 mils of urine overnight. Reason For Visit: DEHYDRATION, HYPOGLYCEMIA Physical Exam Vital Signs: Temp Pulse Resp BP Pulse Ox 98.6 F 94 16 127/76 H 94 10/14/19 10:45 10/14/19 14:00 10/14/19 10:45 10/14/19 10:45 10/14/19 10:45 Intake & Output 10/13/19 10/14/19 10/15/19 06:59 06:59 06:59 Intake Total 1520 769 Output Total 550 200 Balance 970 569 Weight 59 kg General appearance: PRESENT: no acute distress, cooperative, disheveled Respiratory exam: PRESENT: clear to auscultation lauren, symmetrical, unlabored. ABSENT: accessory muscle use, chest wall tenderness, crackles, prolonged expiratory phas, rhonchi, tachypnea, wheezes Cardiovascular exam: PRESENT: +S1, +S2, RRR. ABSENT: diastolic murmur, systolic murmur Pulses: PRESENT: normal carotid pulses Vascular exam: PRESENT: normal capillary refill GI/Abdominal exam: PRESENT: normal bowel sounds, soft. ABSENT: distended, guar ding, rebound, tenderness Extremities exam: ABSENT: clubbing, pedal edema Musculoskeletal exam: PRESENT: deformity - She is missing the great toe of her left foot. The tip of the second toe of the left foot is missing. There appears to be an old nonhealing wound on the tip of the third toe of the left foot. Neurological exam: PRESENT: awake, oriented to person, oriented to place, oriented to situation Psychiatric exam: PRESENT: flat affect Skin exam: PRESENT: dry, warm, other - She has dry flaking skin and evidence of chronic venous insufficiency of the lower extremities. She also has evidence of bruising predominantly on her distal lower extremities, distal upper extremities, and a little bit on her chest Results Laboratory Results: 10/14/19 05:54 10/14/19 05:54 10/14/19 10/14/19 05:54 05:54 WBC 12.2 H RBC 4.55 Hgb 10.3 L D Hct 32.9 L MCV 72 L MCH 22.6 L MCHC 31.2 L RDW 19.8 H Plt Count 281 Sodium 132.7 L Potassium 3.7 D Chloride 103 Carbon Dioxide 24 Anion Gap 6 BUN 40 H Creatinine 1.54 H Est GFR ( Amer) 40 L Glucose 152 H Calcium 7.5 L 10/13/19 10/13/19 10/14/19 11:28 11:28 05:54 Creatine Kinase 4308 H 2827 H Troponin I 0.036 Impressions: Head CT 10/13/19 11:09 IMPRESSION: CHRONIC CHANGES OF ATROPHY AND MICROVASCULAR ISCHEMIA. NO ACUTE PROCESS. SMALL MIDLINE HEMATOMA PREVIOUSLY DESCRIBED HAS RESOLVED. EVIDENCE OF ACUTE STROKE: NO. Knee X-Ray 10/13/19 11:11 IMPRESSION: Osteoarthritis. Chondrocalcinosis. No acute fracture or dislocation. Shoulder X-Ray 10/13/19 11:11 IMPRESSION: Chronic left humeral head fracture. No obvious acute findings. Chest X-Ray 10/13/19 11:12 IMPRESSION: NO ACUTE RADIOGRAPHIC FINDING IN THE CHEST. Assessment and Plan - Diagnosis (1) Hypoglycemia Is this a current diagnosis for this admission?: Yes Plan: Due to exogenous insulin administration coupled with insufficient p.o. intake. This is now resolved. We took her off the dextrose containing fluid. She is eating and drinking without difficulty. Will likely resume some Lantus this evening. (2) Dehydration Is this a current diagnosis for this admission?: Yes Plan: We switched her to LR, urine output is improving (3) Current every day smoker Is this a current diagnosis for this admission?: Yes Plan: Counseled regarding the dangers of cigarette smoking and the adverse effects on her health, recommended abstinence (4) Hypertension Qualifiers: Hypertension type: essential hypertension Qualified Code(s): I10 - Essential (primary) hypertension Is this a current diagnosis for this admission?: Yes Plan: Got some as needed hydralazine orders, but it does not look like she was on anything at home for blood pressure. We will monitor for need to start a maintenance medication. (5) Leukocytosis Qualifiers: Leukocytosis type: unspecified Qualified Code(s): D72.829 - Elevated white blood cell count, unspecified Is this a current diagnosis for this admission?: Yes Plan: White count is coming down without any intervention, this was likely a stress response (6) Rhabdomyolysis Qualifiers: Rhabdomyolysis type: non-traumatic Qualified Code(s): M62.82 - Rhabdomyolysis Is this a current diagnosis for this admission?: Yes Plan: Improving with IV fluids. Since we got her off the dextrose containing fluid we have been able to switch her over to LR which is a better fluid in this situation (7) Alcohol use disorder Is this a current diagnosis for this admission?: Yes Plan: She claims she does not drink, but this is in her history. We will monitor for signs of withdrawal. She said she has not had a drink in 6 months (8) COPD (chronic obstructive pulmonary disease) Qualifiers: COPD type: unspecified COPD Qualified Code(s): J44.9 - Chronic obstructive pulmonary disease, unspecified Is this a current diagnosis for this admission?: Yes Plan: Not acutely exacerbated, it appears that she was only on a as needed albuterol inhaler at home (9) Diabetes mellitus type 2 in nonobese Is this a current diagnosis for this admission?: Yes Plan: Sliding scale for now, will start some Lantus back this evening - Time Time Spent with patient: 15-24 minutes
[2019-10-14] MEDS: ACETAMINOPHEN 325 MG TABLET PO PRN (21:06)
[2019-10-15] MEDS: RINGERS SOLUTION,LACTATED 1,000 ML IV PRN
[2019-10-15 06:39] LABS: HEMATOCRIT 32.7 % (36.0-47.0); HEMOGLOBIN 10.1 g/dL (12.0-15.5); MEAN CORPUSCULAR HEMOGLOBIN 22.5 pg (27.0-33.4); MEAN CORPUSCULAR VOLUME 73 fl (80-97); PLATELET COUNT 257 10^3/uL (150-450); RED CELL DISTRIBUTION WIDTH 19.6 % (11.5-14.0); WHITE BLOOD COUNT 11.8 10^3/uL (4.0-10.5)
[2019-10-15 07:06] LABS: ANION GAP 6 (5-19); BLOOD UREA NITROGEN 30 mg/dL (7-20); CALCIUM 7.9 mg/dL (8.4-10.2); CARBON DIOXIDE 26 mmol/L (22-30); CHLORIDE 103 mmol/L (98-107); GLUCOSE 115 mg/dL (75-110); POTASSIUM 3.7 mmol/L (3.6-5.0)
[2019-10-15] MEDS: INSULIN LISPRO 100 UNIT/ML 3 ML VIAL SUBCUT SCH ×4 (07:48→22:34)
[2019-10-15] MEDS: VENLAFAXINE HCL 75 MG CAP.SR.24H PO SCH (09:26)
[2019-10-15] MEDS: FOLIC ACID 1 MG TABLET PO SCH (09:26)
--- NOTE | 2019-10-15 14:39 | PDOC PROGRESS REPORT ---
Subjective Progress Note for:: 10/15/19 Subjective:: No adverse events overnight. Her chief complaint is that the IV fluids made her urinate. She said she typically likes to drink diet Pepsi at home and she does not like to drink water so much. She is afraid that if she starts drinking water she is going to have to urinate some more. I told her that that is a good thing. Also encouraged her to drink water and not exclusively drink soft drinks, especially with artificial sweetener. Reason For Visit: DEHYDRATION, HYPOGLYCEMIA Physical Exam Vital Signs: Temp Pulse Resp BP Pulse Ox 98.8 F 84 21 H 149/83 H 93 10/15/19 10:50 10/15/19 10:50 10/15/19 10:50 10/15/19 10:50 10/15/19 10:50 Intake & Output 10/14/19 10/15/19 10/16/19 06:59 06:59 06:59 Intake Total 1520 2706 1211 Output Total 550 200 400 Balance 970 2506 811 Weight 59 kg 61.7 kg General appearance: PRESENT: no acute distress, cooperative, disheveled Respiratory exam: PRESENT: clear to auscultation lauren, symmetrical, unlabored. ABSENT: accessory muscle use, chest wall tenderness, crackles, prolonged expiratory phas, rhonchi, tachypnea, wheezes Cardiovascular exam: PRESENT: +S1, +S2, RRR. ABSENT: diastolic murmur, systolic murmur Pulses: PRESENT: normal carotid pulses Vascular exam: PRESENT: normal capillary refill GI/Abdominal exam: PRESENT: normal bowel sounds, soft. ABSENT: distended, guarding, rebound, tenderness Extremities exam: ABSENT: clubbing, pedal edema Musculoskeletal exam: PRESENT: deformity - She is missing the great toe of her left foot. The tip of the second toe of the left foot is missing. There appears to be an old nonhealing wound on the tip of the third toe of the left foot. Neurological exam: PRESENT: awake, oriented to person, oriented to place, orie nted to situation Psychiatric exam: PRESENT: flat affect Skin exam: PRESENT: dry, warm, other - She has dry flaking skin and evidence of chronic venous insufficiency of the lower extremities. She also has evidence of bruising predominantly on her distal lower extremities, distal upper extremities, and a little bit on her chest Results Laboratory Results: 10/15/19 06:29 10/15/19 06:29 10/15/19 10/15/19 06:29 06:29 WBC 11.8 H RBC 4.50 Hgb 10.1 L Hct 32.7 L MCV 73 L MCH 22.5 L MCHC 31.0 L RDW 19.6 H Plt Count 257 Sodium 134.9 L Potassium 3.7 Chloride 103 Carbon Dioxide 26 Anion Gap 6 BUN 30 H Creatinine 1.25 Est GFR ( Amer) 51 L Glucose 115 H Calcium 7.9 L 10/13/19 10/13/19 10/14/19 11:28 11:28 05:54 Creatine Kinase 4308 H 2827 H Troponin I 0.036 Impressions: Head CT 10/13/19 11:09 IMPRESSION: CHRONIC CHANGES OF ATROPHY AND MICROVASCULAR ISCHEMIA. NO ACUTE PROCESS. SMALL MIDLINE HEMATOMA PREVIOUSLY DESCRIBED HAS RESOLVED. EVIDENCE OF ACUTE STROKE: NO. Knee X-Ray 10/13/19 11:11 IMPRESSION: Osteoarthritis. Chondrocalcinosis. No acute fracture or dislocation. Shoulder X-Ray 10/13/19 11:11 IMPRESSION: Chronic left humeral head fracture. No obvious acute findings. Chest X-Ray 10/13/19 11:12 IMPRESSION: NO ACUTE RADIOGRAPHIC FINDING IN THE CHEST. Assessment and Plan - Diagnosis (1) Hypoglycemia Is this a current diagnosis for this admission?: Yes Plan: Due to exogenous insulin administration coupled with insufficient p.o. intake. This is now resolved. We took her off the dextrose containing fluid. She is eating and drinking without difficulty. She is not requiring the way of a sliding scale and we have not started back her Lantus. I encouraged her to eat we will watch her again overnight, and if she continues to show this kind of a pattern then she may not need as much Lantus at home as she was previously on. Said she does not do a sliding scale at home, just Lantus. (2) Dehydration Is this a current diagnosis for this admission?: Yes Plan: Resolved. IV fluids discontinued. (3) Current every day smoker Is this a current diagnosis for this admission?: Yes Plan: Counseled regarding the dangers of cigarette smoking and the adverse effects on her health, recommended abstinence (4) Hypertension Qualifiers: Hypertension type: essential hypertension Qualified Code(s): I10 - Essential (primary) hypertension Is this a current diagnosis for this admission?: Yes Plan: Got some as needed hydralazine orders, but it does not look like she was on anything at home for blood pressure. We will monitor for need to start a maintenance medication. (5) Leukocytosis Qualifiers: Leukocytosis type: unspecified Qualified Code(s): D72.829 - Elevated white blood cell count, unspecified Is this a current diagnosis for this admission?: Yes Plan: White count is coming down without any intervention, this was likely a stress response (6) Rhabdomyolysis Qualifiers: Rhabdomyolysis type: non-traumatic Qualified Code(s): M62.82 - Rhabdomyolysis Is this a current diagnosis for this admission?: Yes Plan: Resolved (7) Alcohol use disorder Is this a current diagnosis for this admission?: Yes Plan: She claims she does not drink, but this is in her history. We will monitor for signs of withdrawal. She said she has not had a drink in 6 months (8) COPD (chronic obstructive pulmonary disease) Qualifiers: COPD type: unspecified COPD Qualified Code(s): J44.9 - Chronic obstructive pulmonary disease, unspecified Is this a current diagnosis for this admission?: Yes Plan: Not acutely exacerbated, it appears that she was only on a as needed albuterol inhaler at home (9) Diabetes mellitus type 2 in nonobese Is this a current diagnosis for this admission?: Yes Plan: Sliding scale for now, Lantus has not been restarted because her sugars have not been very high (10) Frequent falls Is this a current diagnosis for this admission?: Yes Plan: She did fairly well for physical therapy. Anticipate discharge home tomorrow with home health PT. - Time Time Spent with patient: 15-24 minutes
[2019-10-15] MEDS: ACETAMINOPHEN 325 MG TABLET PO PRN (19:41)
[2019-10-16 05:18] LABS: HEMATOCRIT 31.5 % (36.0-47.0); HEMOGLOBIN 9.8 g/dL (12.0-15.5); MEAN CORPUSCULAR HEMOGLOBIN 22.9 pg (27.0-33.4); MEAN CORPUSCULAR HGB CONC 31.2 g/dL (32.0-36.0); MEAN CORPUSCULAR VOLUME 73 fl (80-97); PLATELET COUNT 245 10^3/uL (150-450); RED CELL DISTRIBUTION WIDTH 19.4 % (11.5-14.0); WHITE BLOOD COUNT 9.5 10^3/uL (4.0-10.5)
[2019-10-16 05:41] LABS: ANION GAP 5 (5-19); BLOOD UREA NITROGEN 23 mg/dL (7-20); CALCIUM 7.7 mg/dL (8.4-10.2); CARBON DIOXIDE 27 mmol/L (22-30); CHLORIDE 103 mmol/L (98-107); GLUCOSE 213 mg/dL (75-110); POTASSIUM 3.7 mmol/L (3.6-5.0)
[2019-10-16] MEDS: INSULIN LISPRO 100 UNIT/ML 3 ML VIAL SUBCUT SCH ×2 (08:45→11:28)
[2019-10-16] MEDS: VENLAFAXINE HCL 75 MG CAP.SR.24H PO SCH (09:27)
[2019-10-16] MEDS: FOLIC ACID 1 MG TABLET PO SCH (09:30)
[2019-10-16 13:02] VITALS: BP 168/87
--- NOTE | 2019-10-16 16:18 | PDOC DISCHARGE SUMMARY ---
Impression - Admit/DC Date/PCP Admission Date/Primary Care Provider: 10/16/19 11:20 BARBARA LANTIGUA MD Discharge Date: 10/16/19 - Discharge Diagnosis (1) Hypoglycemia Is this a current diagnosis for this admission?: Yes (2) Dehydration Is this a current diagnosis for this admission?: Yes (3) Current every day smoker Is this a current diagnosis for this admission?: Yes (4) Hypertension Is this a current diagnosis for this admission?: Yes (5) Leukocytosis Is this a current diagnosis for this admission?: Yes (6) Rhabdomyolysis Is this a current diagnosis for this admission?: Yes (7) Alcohol use disorder Is this a current diagnosis for this admission?: Yes (8) COPD (chronic obstructive pulmonary disease) Is this a current diagnosis for this admission?: Yes (9) Diabetes mellitus type 2 in nonobese Is this a current diagnosis for this admission?: Yes (10) Frequent falls Is this a current diagnosis for this admission?: Yes - Additional Information Resuscitation Status: Full Code Discharge Diet: Diabetic Discharge Activity: Supervised Activity Referrals: [facility] [Outside] BARBARA LANTIGUA MD [Primary Care Provider] - (1 week ) Home Medications: Venlafaxine HCl ER [Effexor Xr 75 mg Cap.sr] 150 mg PO DAILY #0 cap.sr.24h 10/21/18 Pramipexole Di-HCl [Pramipexole ER] 3.75 mg PO DAILY 06/20/19 Albuterol Sulfate [Proair HFA Inhalation Aerosol 8.5 gm MDI] 1 puff IH Q4HP PRN 10/13/19 Betamethasone Dipropionate 1 applic TP BID 10/13/19 Clobetasol Propionate [Temovate 0.05% Ointment 15 gm] 1 applic TP BID 10/13/19 Folic Acid [Folvite 1 mg Tablet] 1 mg PO DAILY 10/13/19 Insulin Glargine,Hum.rec.anlog [Lantus Insulin 100 Unit/mL Insulin Pen] 10 unit SUBCUT QHS #0 10/16/19 History of Present Illiness History of Present Illness: VIVEK MAGUIRE is a 73 year old female with a history of COPD and diabetes insulin-dependent who arrived this morning by EMS, who reported the patient had a low blood sugar of 22 upon arrival at the scene. I do not have the EMS scene run sheet, and the patient is not a meaningful historian in any way whatsoever. It is not clear to me at this time who called EMS, but apparently someone did, and when they found her her blood sugar was low. She was given interventions to help bring it up. She says that she takes Lantus twice a day, but she cannot remember if she took it this morning. She said she took it last night, but she cannot remember anything else about yesterday, such as what she ate and at what times of the day, or whether or not she had any visitors in her house yesterday. She lives alone in [place]. Her doctor is Dr. Lantigua. In the ER she was found to have a leukocytosis, elevated BUN to creatinine ratio, and a with mild rhabdomyolysis. She does not know much about her medical history, but she does know she is diabetic and has COPD. She does not know what medications she takes, but she says that she takes 15 of them, I have no way to confirm at this time whether or not that is true. Her blood pressure is elevated in the emergency department. I am told that the patient's house was in a mass with a lot of trash and clutter, and that there was a wheelchair at their but there was no way for the wheelchair to move around due to obstruction from all the clutter. Hospital Course Hospital Course: She responded well to IV fluids and her creatinine corrected. We kept her off of Lantus and just on a sliding scale. She says she was taking 40 units of Lantus twice a day at home. She needed no more than 10 units of insulin a day at any point while she was here. I recommended to her that she only take Lantus 10 units once a day at bedtime, and that she should eat regularly and check her blood sugars before meals and record this information for her primary care provider. Her mental status and her overall strength improved as her blood sugar improved and as she got hydrated. She did better for physical therapy that I thought she would. She did well enough to go home with home health. She states she has a walker at home. I did not have to change any of her home medications other than the adjustment to her Lantus. She has follow-up with her primary care provider in 1 week. Her labs and examination were reassuring and she was discharged in stable condition. Physical Exam Vital Signs: Temp Pulse Resp BP Pulse Ox 97.5 F 81 16 168/87 H 98 10/16/19 12:55 10/16/19 12:55 10/16/19 12:55 10/16/19 12:55 10/16/19 12:55 Intake & Output 10/15/19 10/16/19 10/17/19 06:59 06:59 06:59 Intake Total 2706 1451 240 Output Total 200 1401 300 Balance 2506 50 -60 Weight 61.7 kg 61.7 kg General appearance: PRESENT: no acute distress, cooperative, disheveled Respiratory exam: PRESENT: clear to auscultation lauren, symmetrical, unlabored. ABSENT: accessory muscle use, chest wall tenderness, crackles, prolonged expiratory phas, rhonchi, tachypnea, wheezes Cardiovascular exam: PRESENT: +S1, +S2, RRR. ABSENT: diastolic murmur, systolic murmur Pulses: PRESENT: normal carotid pulses Vascular exam: PRESENT: normal capillary refill GI/Abdominal exam: PRESENT: normal bowel sounds, soft. ABSENT: distended, guarding, rebound, tenderness Extremities exam: ABSENT: clubbing, pedal edema Musculoskeletal exam: PRESENT: deformity - She is missing the great toe of her left foot. The tip of the second toe of the left foot is missing. There appears to be an old nonhealing wound on the tip of the third toe of the left foot. Neurological exam: PRESENT: awake, oriented to person, oriented to place, oriented to situation Psychiatric exam: PRESENT: flat affect Skin exam: PRESENT: dry, warm, other - She has dry flaking skin and evidence of chronic venous insufficiency of the lower extremities. She also has evidence of bruising predominantly on her distal lower extremities, distal upper extremities, and a little bit on her chest Results Laboratory Results: WBC 9.5 10^3/uL (4.0-10.5) 10/16/19 04:54 RBC 4.30 10^6/uL (3.72-5.28) 10/16/19 04:54 Hgb 9.8 g/dL (12.0-15.5) L 10/16/19 04:54 Hct 31.5 % (36.0-47.0) L 10/16/19 04:54 MCV 73 fl (80-97) L 10/16/19 04:54 MCH 22.9 pg (27.0-33.4) L 10/16/19 04:54 MCHC 31.2 g/dL (32.0-36.0) L 10/16/19 04:54 RDW 19.4 % (11.5-14.0) H 10/16/19 04:54 Plt Count 245 10^3/uL (150-450) 10/16/19 04:54 Lymph % (Auto) 5.9 % (13-45) L 10/13/19 11:28 Blount % (Auto) 3.3 % (3-13) 10/13/19 11:28 Eos % (Auto) 0.0 % (0-6) 10/13/19 11:28 Baso % (Auto) 0.4 % (0-2) 10/13/19 11:28 Absolute Neuts (auto) 14.0 10^3/uL (1.7-8.2) H 10/13/19 11:28 Absolute Lymphs (auto) 0.9 10^3/uL (0.5-4.7) 10/13/19 11:28 Absolute Monos (auto) 0.5 10^3/uL (0.1-1.4) 10/13/19 11:28 Absolute Eos (auto) 0.0 10^3/uL (0.0-0.6) 10/13/19 11:28 Absolute Basos (auto) 0.1 10^3/uL (0.0-0.2) 10/13/19 11:28 Seg Neutrophils % 90.4 % (42-78) H 10/13/19 11:28 PT 14.7 SEC (11.4-15.4) 10/13/19 11:28 INR 1.15 10/13/19 11:28 Sodium 135.3 mmol/L (137-145) L 10/16/19 04:54 Potassium 3.7 mmol/L (3.6-5.0) 10/16/19 04:54 Chloride 103 mmol/L (98-107) 10/16/19 04:54 Carbon Dioxide 27 mmol/L (22-30) 10/16/19 04:54 Anion Gap 5 (5-19) 10/16/19 04:54 BUN 23 mg/dL (7-20) H 10/16/19 04:54 Creatinine 1.14 mg/dL (0.52-1.25) 10/16/19 04:54 Est GFR ( Amer) 56 (>60) L 10/16/19 04:54 Est GFR (MDRD) Non-Af 47 (>60) L 10/16/19 04:54 Glucose 213 mg/dL (75-110) H 10/16/19 04:54 POC Glucose 128 mg/dL (70-110) H 10/16/19 11:06 Calcium 7.7 mg/dL (8.4-10.2) L 10/16/19 04:54 Total Bilirubin 0.7 mg/dL (0.2-1.3) 10/13/19 11:28 Direct Bilirubin 0.0 mg/dL (0.0-0.4) 10/13/19 11:28 Neonat Total Bilirubin Not Reportable 10/13/19 11:28 Neonat Direct Bilirubin Not Reportable 10/13/19 11:28 Neonat Indirect Bili Not Reportable 10/13/19 11:28 AST 159 U/L (14-36) H 10/13/19 11:28 ALT 37 U/L (<35) H 10/13/19 11:28 Alkaline Phosphatase 136 U/L (38-126) H 10/13/19 11:28 Creatine Kinase 2827 U/L (30-135) H 10/14/19 05:54 Troponin I 0.036 ng/mL 10/13/19 11:28 Total Protein 7.0 g/dL (6.3-8.2) 10/13/19 11:28 Albumin 3.8 g/dL (3.5-5.0) 10/13/19 11:28 Urine Color YELLOW 10/13/19 12:43 Urine Appearance SLIGHTLY-CLOUDY 10/13/19 12:43 Urine pH 5.0 (5.0-9.0) 10/13/19 12:43 Ur Specific [place] 1.025 10/13/19 12:43 Urine Protein >=500 mg/dL (NEGATIVE) H 10/13/19 12:43 Urine Glucose (UA) NEGATIVE mg/dL (NEGATIVE) 10/13/19 12:43 Urine Ketones TRACE mg/dL (NEGATIVE) H 10/13/19 12:43 Urine Blood LARGE (NEGATIVE) H 10/13/19 12:43 Urine Nitrite NEGATIVE (NEGATIVE) 10/13/19 12:43 Urine Bilirubin NEGATIVE (NEGATIVE) 10/13/19 12:43 Urine Urobilinogen NEGATIVE mg/dL (<2.0) 10/13/19 12:43 Ur Leukocyte Esterase NEGATIVE (NEGATIVE) 10/13/19 12:43 Urine WBC (Auto) 4 /HPF 10/13/19 12:43 Urine RBC (Auto) 1 /HPF 10/13/19 12:43 U Hyaline Cast (Auto) 4 /LPF 10/13/19 12:43 Squamous Epi Cells Auto 1 /HPF 10/13/19 12:43 Urine Mucus (Auto) RARE /LPF 10/13/19 12:43 Urine Ascorbic Acid NEGATIVE (NEGATIVE) 10/13/19 12:43 SARS-CoV-2 (PCR) NEGATIVE (NEGATIVE) 10/13/19 13:43 10/13/19 11:28 Troponin I 0.036 Impressions: Head CT 10/13/19 11:09 IMPRESSION: CHRONIC CHANGES OF ATROPHY AND MICROVASCULAR ISCHEMIA. NO ACUTE PROCESS. SMALL MIDLINE HEMATOMA PREVIOUSLY DESCRIBED HAS RESOLVED. EVIDENCE OF ACUTE STROKE: NO. Knee X-Ray 10/13/19 11:11 IMPRESSION: Osteoarthritis. Chondrocalcinosis. No acute fracture or dislocation. Shoulder X-Ray 10/13/19 11:11 IMPRESSION: Chronic left humeral head fracture. No obvious acute findings. Chest X-Ray 10/13/19 11:12 IMPRESSION: NO ACUTE RADIOGRAPHIC FINDING IN THE CHEST. Plan Time Spent: Greater than 30 Minutes Stroke Is this a Stroke Patient?: No Acute Heart Failure - Is this a Heart Failure Patient?: No
== END 2019-10-16 13:55 | disposition home health service (06) | DRG 638 ==
LOC: ER 10:38 → EH 15:01 → 4S 16:53 → OBSVTOIN 10-16 11:20
PROVIDERS: ADMIT Family Medicine; ATTEND Family Medicine
DX: E11.649 Type 2 diabetes mellitus with hypoglycemia without coma (principal); M62.82 Rhabdomyolysis; E78.00 Pure hypercholesterolemia, unspecified; I10 Essential (primary) hypertension; J44.9 Chronic obstructive pulmonary disease, unspecified; E86.0 Dehydration; F03.90 Unspecified dementia, unspecified severity, without behavioral disturbance, psychotic disturbance, mood disturbance, and anxiety; D72.829 Elevated white blood cell count, unspecified; F17.210 Nicotine dependence, cigarettes, uncomplicated; W19.XXXA Unspecified fall, initial encounter; Y93.89 Activity, other specified; Y92.018 Other place in single-family (private) house as the place of occurrence of the external cause; Z60.2 Problems related to living alone; Z96.643 Presence of artificial hip joint, bilateral; Z79.84 Long term (current) use of oral hypoglycemic drugs; Z79.4 Long term (current) use of insulin; Z79.899 Other long term (current) drug therapy; Z91.81 History of falling; Z03.818 Encounter for observation for suspected exposure to other biological agents ruled out; Z72.89 Other problems related to lifestyle
CPT/HCPCS: 36415; 70450; 71046; 80048; 80053; 81001; 82550; 82962; 84484; 85025; 85027; 85610; 87635; 93005; 93010; 96361; 96374; 99285; J0360; J1815; J3490; J7030; J7120

== ENCOUNTER 2019-11-17 10:01 | Emergency (ER) | payer MEDICARE, BC, OTHER ==
[2019-11-17 11:52] LABS: ABSOLUTE BASOPHILS # (AUTO) 0.1 10^3/uL (0.0-0.2); ABSOLUTE EOSINOPHILS # (AUTO) 0.1 10^3/uL (0.0-0.6); ABSOLUTE LYMPHOCYTES (AUTO) 0.9 10^3/uL (0.5-4.7); ABSOLUTE MONOCYTES (AUTO) 0.5 10^3/uL (0.1-1.4); EOSINOPHILS % (AUTO) 0.7 % (0-6); HEMATOCRIT 39.2 % (36.0-47.0); LYMPHOCYTES % (AUTO) 8.7 % (13-45); MEAN CORPUSCULAR HEMOGLOBIN 22.6 pg (27.0-33.4); MEAN CORPUSCULAR HGB CONC 30.6 g/dL (32.0-36.0); MEAN CORPUSCULAR VOLUME 74 fl (80-97); MONOCYTES % (AUTO) 4.6 % (3-13); PLATELET COUNT 335 10^3/uL (150-450); RED CELL DISTRIBUTION WIDTH 21.1 % (11.5-14.0); TOTAL CELLS COUNTED % (AUTO) 100 %; WHITE BLOOD COUNT 10.6 10^3/uL (4.0-10.5)
[2019-11-17 12:11] LABS: ALBUMIN 3.5 g/dL (3.5-5.0); ALKALINE PHOSPHATASE 120 U/L (38-126); ASPARTATE AMINO TRANSFERASE 27 U/L (14-36); BILIRUBIN,DIRECT 0.1 mg/dL (0.0-0.4); BILIRUBIN,TOTAL 0.5 mg/dL (0.2-1.3); BLOOD UREA NITROGEN 18 mg/dL (7-20); CALCIUM 8.8 mg/dL (8.4-10.2); CARBON DIOXIDE 30 mmol/L (22-30); CHLORIDE 98 mmol/L (98-107); GLUCOSE 155 mg/dL (75-110); POTASSIUM 4.5 mmol/L (3.6-5.0); TOTAL PROTEIN 6.5 g/dL (6.3-8.2)
[2019-11-17 12:18] LABS: ANION GAP 4 (5-19)
[2019-11-17 13:33] LABS: APPEARANCE,URINE SLIGHTLY-CLOUDY; BILIRUBIN,URINE NEGATIVE (NEGATIVE); COLOR,URINE YELLOW; GLUCOSE, URINE 50 mg/dL (NEGATIVE); KETONES,URINE NEGATIVE (NEGATIVE); PROTEIN,URINE 100 mg/dL (NEGATIVE); URINE SPECIFIC GRAVITY 1.014; UROBILINOGEN,URINE NEGATIVE mg/dL (<2.0)
--- NOTE | 2019-11-17 13:55 | ER Document Report ---
ED General - General Chief Complaint: Low Blood Sugar Stated Complaint: HEADACHE/LOW BLOOD SUGAR Time Seen by Provider: 11/17/19 13:53 Primary Care Provider: BARBARA LANTIGUA MD [Primary Care Provider] - Follow up as needed Mode of Arrival: Medic Information source: Emergency Med Personnel Notes: 11/17/19 12:27 - ED Nursing Note by CHALO GARCIA Acct Num: [id number] : 1945 Patient Age: 74 pt arrives to Er via EMS from home due to her friend came over to her house and found her on the floor with no clothes on and according to pt's friend pt was unresponsive, EMS states upon their arrival pt blood sugar was 20, EMS administer D10 and states pt became more responsive and blood sugar went up to 107, upon arrival to ED pt is alert and oriented x4 skin warm and dry, respirations even and unlabored, pt has hx of COPD and has expiratory wheezes, pt states she does not remember when she took her medications or if she has taken them, pt also states she does recall the last time she ate, pt states she has a headache. pt blood sugar at this time is 114. pt applied to ekg monitor, IV established, and blood obtained and sent to lab. my notes 74-year-old female arrives by EMS with chief complaint of low blood kimbrough gars patient been a diabetic since she was 51 years old insulin-dependent. Also her father and brother were diabetics until by MIs. Mother was not a diabetic but her mother was. Patient reports she had scheduled for a friend Jon to come chicken picker all used cardboard this morning at 0 830 and he has a josue to get inside the house but the last thing she remembers is that she was waiting for him and then awoke to find to 2 strange man (EMS) in her house giving her glucose. Patient has had many symptoms of hypoglycemia in the past and used to take 40 units of insulin Lantus twice a day but within the last month or 2 this is been changed to only 40 every morning and 2 Metformin 500 mg tablets. At 1400 patient is doing well very conversant and a good historian. Order of meal was placed by nursing staff. TRAVEL OUTSIDE OF THE [place] IN LAST 30 DAYS: No - HPI Onset: Just prior to arrival Onset/Duration: Sudden, Better Quality of pain: No pain Severity: None Pain Level: 0 Associated symptoms: Weakness Exacerbated by: Denies Relieved by: Denies Similar symptoms previously: Yes Recently seen / treated by doctor: No - Related Data Allergies/Adverse Reactions: valsartan [From Diovan] Allergy (Unknown, Verified 10/13/19 10:56) Skin Redness Penicillins Allergy (Verified 10/13/19 10:56) exenatide [From Byetta] Adverse Reaction (Severe, Verified 10/13/19 10:56) Migraine quetiapine [From Seroquel] Adverse Reaction (Verified 10/13/19 10:56) insomnia topiramate [From Topamax] Adverse Reaction (Verified 10/13/19 10:56) vision changes Past Medical History - General Information source: Patient - Social History Smoking Status: Former Smoker Cigarette use (# per day): No Chew tobacco use (# tins/day): No Smoking Education Provided: No Frequency of alcohol use: None Drug Abuse: None Lives with: Alone, Friend Family History: Reviewed & Not Pertinent, CAD, Malignancy, Other Patient has suicidal ideation: No Patient has homicidal ideation: No - Past Medical History Cardiac Medical History: Reports: Hx Hypercholesterolemia, Hx Hypertension Denies: Hx Atrial Fibrillation, Hx Congestive Heart Failure, Hx Coronary Artery Disease, Hx Heart Attack, Hx Peripheral Vascular Disease, Hx Pulmonary Embolism, Hx Heart Murmur Pulmonary Medical History: Reports: Hx Asthma, Hx Bronchitis, Hx COPD Denies: Hx Pneumonia, Hx Respiratory Failure, Hx Sleep Apnea, Hx Tuberculosis Neurological Medical History: Denies: Hx Cerebrovascular Accident, Hx Seizures Endocrine Medical History: Reports: Hx Diabetes Mellitus Type 1, Hx Diabetes Mellitus Type 2. Denies: Hx Graves' Disease, Hx Hyperthyroidism, Hx Hypothyroidism Renal/ Medical History: Denies: Hx Kidney Stones, Hx Peritoneal Dialysis Malignancy Medical History: Denies: Hx Lung Cancer GI Medical History: Denies: Hx Gastroesophageal Reflux Disease Musculoskeletal Medical History: Reports Hx Arthritis, Denies Hx Fibromyalgia, Denies Hx Muscular Dystrophy, Denies Hx Systemic Lupus Erythematosus Psychiatric Medical History: Reports: Hx Depression Denies: Hx Bipolar Disorder, Hx Post Traumatic Stress Disorder, Hx Schizophrenia Traumatic Medical History: Reports: Hx Fractures - bilat hips, left shoulder Past Surgical History: Reports: Hx Adenoidectomy, Hx Orthopedic Surgery - Patient has had both left and right hip fracture repairs secondary to falls, Hx Tonsillectomy, Other - Cataract, left great toe amputation. Denies: Hx Appendectomy, Hx Bowel Surgery, Hx Section, Hx Cholecystectomy, Hx Coronary Artery Bypass Graft, Hx Gastric Bypass Surgery, Hx Herniorrhaphy, Hx Hysterectomy, Hx Mastectomy, Hx Tubal Ligation - Immunizations Hx Diphtheria, Pertussis, Tetanus Vaccination: Yes Hx Pneumococcal Vaccination: 05/24/11 Review of Systems - Review of Systems Constitutional: See HPI, Weakness EENT: No symptoms reported Cardiovascular: No symptoms reported Respiratory: No symptoms reported Gastrointestinal: No symptoms reported Genitourinary: No symptoms reported Female Genitourinary: No symptoms reported Musculoskeletal: No symptoms reported Skin: No symptoms reported Hematologic/Lymphatic: No symptoms reported Neurological/Psychological: No symptoms reported Physical Exam - Vital signs Vitals: Temp 98.4 F 11/17/19 10:02 Interpretation: Hypertensive - General General appearance: Appears well - HEENT Head: Normocephalic, Atraumatic Eyes: Normal Pupils: PERRL Pharynx: Normal Neck: Normal - Respiratory Respiratory status: No respiratory distress Chest status: Nontender Breath sounds: Normal Chest palpation: Normal - Cardiovascular Rhythm: Regular Heart sounds: Normal auscultation Murmur: No - Abdominal Inspection: Normal Distension: No distension Bowel sounds: Normal Tenderness: Nontender Organomegaly: No organomegaly - Rectal Hemorrhoids: Other - deferred - Genitourinary [place] exam: Other - deferred - Back Back: Normal - Extremities General upper extremity: Normal inspection, Nontender, Normal color, Normal ROM, Normal temperature General lower extremity: Normal inspection, Nontender, Normal color, Normal ROM, Normal temperature, Normal weight bearing. No: Kevan's sign - Neurological Neuro grossly intact: Yes Cognition: Normal Orientation: AAOx4 Crawford Coma Scale Eye Opening: Spontaneous Zac Coma Scale Verbal: Oriented Crawford Coma Scale Motor: Obeys Commands Zac Coma Scale Total: 15 Speech: Normal Motor strength normal: LUE, RUE, LLE, RLE Sensory: Normal - Psychological Associated symptoms: Normal affect - Skin Skin Temperature: Warm Skin Moisture: Dry Course - Vital Signs Vital signs: Temp Pulse Resp BP Pulse Ox 97.3 F 96 13 178/89 H 96 11/17/19 10:12 11/17/19 10:12 11/17/19 13:01 11/17/19 13:01 11/17/19 13:01 - Laboratory Result Diagrams: 11/17/19 10:37 11/17/19 10:37 Laboratory results interpreted by me: 11/17/19 11/17/19 11/17/19 10:06 10:37 10:37 WBC 10.6 H RBC 5.30 H MCV 74 L MCH 22.6 L MCHC 30.6 L RDW 21.1 H Lymph % (Auto) 8.7 L Absolute Neuts (auto) 9.0 H Seg Neutrophils % 85.0 H Sodium 132.0 L Anion Gap 4 L Est GFR (MDRD) Non-Af 52 L Glucose 155 H POC Glucose 114 H Urine Protein Urine Glucose (UA) Urine Blood Leukocyte Esterase Rfl 11/17/19 11/17/19 11:47 12:23 WBC RBC MCV MCH MCHC RDW Lymph % (Auto) Absolute Neuts (auto) Seg Neutrophils % Sodium Anion Gap Est GFR (MDRD) Non-Af Glucose POC Glucose 167 H Urine Protein 100 H Urine Glucose (UA) 50 H Urine Blood SMALL H Leukocyte Esterase Rfl TRACE H Critical Care Note - Critical Care Note Total time excluding time spent on procedures (mins): 90 Discharge - Discharge Clinical Impression: Hypoglycemia Condition: Good Disposition: HOME, SELF-CARE Additional Instructions: Follow-up with personal doctor as needed return to ER as needed take medicines as directed try to eat a high-calorie like peanut butter snack before bedtime Referrals: BARBARA LANTIGUA MD [Primary Care Provider] - Follow up as needed
[2019-11-17] MEDS ORDERED: CLONIDINE HCL 0.2 MG TABLET PO ONE (18:17)
[2019-11-17 19:18] VITALS: BP 154/92
--- NOTE | 2019-11-17 19:18 | EKG REPORT ---
SEVERITY:- ABNORMAL ECG - SINUS RHYTHM MULTIPLE VENTRICULAR PREMATURE COMPLEXES LOW VOLTAGE IN FRONTAL LEADS BORDERLINE INFERIOR Q WAVES BORDERLINE R WAVE PROGRESSION, ANTERIOR LEADS : Confirmed by: Heron Jha 17-Nov-2019 19:18:06
== END 2019-11-17 19:31 | disposition home or self-care (01) ==
LOC: ER 10:01
DX: R51 Headache (principal); E11.649 Type 2 diabetes mellitus with hypoglycemia without coma; R53.1 Weakness; E78.00 Pure hypercholesterolemia, unspecified; I10 Essential (primary) hypertension; J44.9 Chronic obstructive pulmonary disease, unspecified; Z88.0 Allergy status to penicillin; Z79.4 Long term (current) use of insulin; Z79.84 Long term (current) use of oral hypoglycemic drugs
CPT/HCPCS: 93005; 99291; 99292; 36415; 82962; 85025; 80053; 81001; 93010; A9270

== ENCOUNTER 2019-12-25 11:59 | Inpatient (IN) | payer MEDICARE, BC, OTHER ==
--- NOTE | 2019-12-25 12:23 | EKG REPORT ---
SEVERITY:- BORDERLINE ECG - SINUS TACHYCARDIA with first degree AVB. VENTRICULAR PREMATURE COMPLEX BORDERLINE R WAVE PROGRESSION, ANTERIOR LEADS : Confirmed by: Isma Cohen MD 25-Dec-2019 12:22:45
[2019-12-25 12:26] LABS: ABSOLUTE BASOPHILS # (AUTO) 0.2 10^3/uL (0.0-0.2); ABSOLUTE EOSINOPHILS # (AUTO) 0.1 10^3/uL (0.0-0.6); ABSOLUTE MONOCYTES (AUTO) 0.6 10^3/uL (0.1-1.4); ABSOLUTE NEUT (AUTO) 7.6 10^3/uL (1.7-8.2); BASOPHILS % (AUTO) 1.7 % (0-2); EOSINOPHILS % (AUTO) 1.4 % (0-6); HEMATOCRIT 34.5 % (36.0-47.0); HEMOGLOBIN 10.4 g/dL (12.0-15.5); LYMPHOCYTES % (AUTO) 19.1 % (13-45); MEAN CORPUSCULAR HEMOGLOBIN 22.6 pg (27.0-33.4); MEAN CORPUSCULAR HGB CONC 30.1 g/dL (32.0-36.0); MEAN CORPUSCULAR VOLUME 75 fl (80-97); PLATELET COUNT 321 10^3/uL (150-450); RED BLOOD COUNT 4.59 10^6/uL (3.72-5.28); RED CELL DISTRIBUTION WIDTH 21.8 % (11.5-14.0); SEGMENTED NEUTROPHILS % (AUTO) 71.8 % (42-78); TOTAL CELLS COUNTED % (AUTO) 100 %; WHITE BLOOD COUNT 10.5 10^3/uL (4.0-10.5)
[2019-12-25 12:32] LABS: VENOUS BLOOD BASE EXCESS -1.2 mmol/L; VENOUS BLOOD PCO2 73.7 mmHg (35-63); VENOUS BLOOD PH 7.2 (7.30-7.42)
[2019-12-25 12:42] LABS: INTERNATIONAL RATION (INR) 1.12; PROTHROMBIN TIME 14.6 SEC (11.4-15.4)
[2019-12-25 12:52] LABS: VENOUS BLOOD HCO3 28.2 mmol/L (20-32)
--- NOTE | 2019-12-25 12:59 | RADIOLOGY REPORT (SQ) ---
EXAM DESCRIPTION: CHEST SINGLE VIEW IMAGES COMPLETED DATE/TIME: 12/25/2019 12:47 pm REASON FOR STUDY: bed 6 difficulty breathing COMPARISON: 10/13/2019 EXAM PARAMETERS: NUMBER OF VIEWS: One view. TECHNIQUE: Single frontal radiographic view of the chest acquired. RADIATION DOSE: NA LIMITATIONS: None. FINDINGS: LUNGS AND PLEURA: No opacities, masses or pneumothorax. No pleural effusion. Skin fold on the right simulates a pneumothorax. MEDIASTINUM AND HILAR STRUCTURES: No masses. Contour normal. HEART AND VASCULAR STRUCTURES: Heart normal in size. Normal vasculature. BONES: No acute findings. HARDWARE: None in the chest. OTHER: No other significant finding. IMPRESSION: NO ACUTE RADIOGRAPHIC FINDING IN THE CHEST. TECHNICAL DOCUMENTATION: JOB ID: [id number] 2010 [employer]- All Rights Reserved Reading location - IP/workstation name: [email or web address]
[2019-12-25 13:02] LABS: ALBUMIN 3.6 g/dL (3.5-5.0); ALKALINE PHOSPHATASE 122 U/L (38-126); ANION GAP 6 (5-19); ASPARTATE AMINO TRANSFERASE 34 U/L (14-36); BILIRUBIN,DIRECT 0.1 mg/dL (0.0-0.4); BILIRUBIN,TOTAL 0.4 mg/dL (0.2-1.3); BLOOD UREA NITROGEN 23 mg/dL (7-20); CALCIUM 8.3 mg/dL (8.4-10.2); CARBON DIOXIDE 28 mmol/L (22-30); CHLORIDE 102 mmol/L (98-107); GLUCOSE 109 mg/dL (75-110); POTASSIUM 4.8 mmol/L (3.6-5.0); TOTAL PROTEIN 6.6 g/dL (6.3-8.2)
--- NOTE | 2019-12-25 13:54 | ER Document Report ---
ED General - General Chief Complaint: Breathing Difficulty Stated Complaint: DIFFICULTY BREATHING Time Seen by Provider: 12/25/19 13:05 Primary Care Provider: BARBARA LANTIGUA MD [Primary Care Provider] - Follow up as needed TRAVEL OUTSIDE OF THE [place] IN LAST 30 DAYS: No - HPI Notes: Patient is a 74-year-old female, a difficult historian, who presents to the emergency department for evaluation of shortness of breath. She states she has been more short of breath over the last several days. Home health nurse evidently found her oxygen saturation to be in the 40s. EMS was called, the patient was placed on oxygen, given multiple breathing treatments, IM Solu- Medrol, and transported here to the emergency department. The patient states that her cough is not worse than normal. She denies any significant pain. She has had no fevers. She states that she is been uncomfortable in the last several days because of an uncontrollable shaking, but denies that these are chills. She states they are more like a tremor. She states she is awaiting a neurology referral for her uncontrollable movements. - Related Data Allergies/Adverse Reactions: valsartan [From Diovan] Allergy (Unknown, Verified 11/17/19 18:14) Skin Redness Penicillins Allergy (Verified 11/17/19 18:14) exenatide [From Byetta] Adverse Reaction (Severe, Verified 11/17/19 18:14) Migraine quetiapine [From Seroquel] Adverse Reaction (Verified 11/17/19 18:14) insomnia topiramate [From Topamax] Adverse Reaction (Verified 11/17/19 18:14) vision changes Home Medications: Despite asking her to clarify her medications, the patient repeatedly states "it is in my chart." Past Medical History - General Information source: Patient - Social History Smoking Status: Current Every Day Smoker Frequency of alcohol use: None Drug Abuse: None Family History: Reviewed & Not Pertinent, CAD, Malignancy, Other - Past Medical History Cardiac Medical History: Reports: Hx Hypercholesterolemia, Hx Hypertension Denies: Hx Atrial Fibrillation, Hx Congestive Heart Failure, Hx Coronary Artery Disease, Hx Heart Attack, Hx Peripheral Vascular Disease, Hx Pulmonary Embolism, Hx Heart Murmur Pulmonary Medical History: Reports: Hx Asthma, Hx Bronchitis, Hx COPD Denies: Hx Pneumonia, Hx Respiratory Failure, Hx Sleep Apnea, Hx Tuberculosis Neurological Medical History: Denies: Hx Cerebrovascular Accident, Hx Seizures Endocrine Medical History: Reports: Hx Diabetes Mellitus Type 2. Denies: Hx Graves' Disease, Hx Hyperthyroidism, Hx Hypothyroidism Renal/ Medical History: Denies: Hx Kidney Stones, Hx Peritoneal Dialysis Malignancy Medical History: Denies: Hx Lung Cancer GI Medical History: Denies: Hx Gastroesophageal Reflux Disease Musculoskeletal Medical History: Reports Hx Arthritis, Denies Hx Fibromyalgia, Denies Hx Muscular Dystrophy, Denies Hx Systemic Lupus Erythematosus Psychiatric Medical History: Reports: Hx Depression Denies: Hx Bipolar Disorder, Hx Post Traumatic Stress Disorder, Hx Schizophrenia Traumatic Medical History: Reports: Hx Fractures - bilat hips, left shoulder Past Surgical History: Reports: Hx Adenoidectomy, Hx Orthopedic Surgery - Patient has had both left and right hip fracture repairs secondary to falls, Hx Tonsillectomy, Other - Cataract, left great toe amputation. Denies: Hx Appendectomy, Hx Bowel Surgery, Hx Section, Hx Cholecystectomy, Hx Coronary Artery Bypass Graft, Hx Gastric Bypass Surgery, Hx Herniorrhaphy, Hx Hysterectomy, Hx Mastectomy, Hx Tubal Ligation - Immunizations Hx Diphtheria, Pertussis, Tetanus Vaccination: Yes Hx Pneumococcal Vaccination: 05/24/11 Review of Systems - Review of Systems Constitutional: See HPI Respiratory: See HPI Neurological/Psychological: See HPI -: Yes All other systems reviewed and negative Physical Exam - Vital signs Vitals: Pulse Ox 77 L 12/25/19 12:00 - Notes Notes: This is a frail-appearing 74-year-old female, who appears her stated age. She is rocking back and forth in the bed, rhythmically with her lower extremities, and almost a parkinsonian-like fashion. Head is normocephalic and atraumatic, pupils are equal round, reactive to light. Oral mucosa is moist. Uvula is midline. Heart is regular rate and rhythm, lungs show diminished breath sounds but no wheezes, rales, rhonchi. Abdomen is soft, nontender, normoactive bowel sounds. Skin is warm and dry. Posterior calves are nontender, no edema appreciated. Peripheral pulses are equal. Patient is awake and alert, cooperative with examiner. Course - Re-evaluation Re-evalutation: 12/25/19 13:52 Patient presents to the emergency department for evaluation. She had laboratory investigations as ordered per protocols. Her VBG showed significant CO2 retention. She is having difficulty breathing upon arrival and was placed on BiPAP prior to my evaluation. She seems to be tolerating it well. Given her pr ofound hypoxia, the fact that she does not have home oxygen at this time, I am inclined to admit this patient. I do not see any signs of significant infection, but will treat her for a COPD exacerbation. She has already received steroids. Currently she is oxygenating at 95 to 96% on 30% FiO2. BiPAP settings of 12/6. Her pressure is normal. 12/25/19 14:42 Patient remained stable. Her venous pH is low, she does have CO2 retention. She is feeling improved on the BiPAP. I spoke with Dr. Canela, he will admit the patient for further care. - Vital Signs Vital signs: Temp Pulse Resp BP Pulse Ox 98.6 F 17 154/84 H 93 12/25/19 12:12 12/25/19 14:16 12/25/19 14:16 12/25/19 14:16 - Laboratory Result Diagrams: 12/25/19 12:02 12/25/19 12:02 Laboratory results interpreted by me: 12/25/19 12/25/19 12/25/19 12:02 12:02 12:02 Hgb 10.4 L Hct 34.5 L MCV 75 L MCH 22.6 L MCHC 30.1 L RDW 21.8 H D-Dimer VBG pH 7.20 L VBG pCO2 73.7 H* Sodium 136.2 L BUN 23 H Creatinine 1.39 H Est GFR ( Amer) 45 L Est GFR (MDRD) Non-Af 37 L Calcium 8.3 L 12/25/19 12:02 Hgb Hct MCV MCH MCHC RDW D-Dimer 0.74 H VBG pH VBG pCO2 Sodium BUN Creatinine Est GFR ( Amer) Est GFR (MDRD) Non-Af Calcium - Diagnostic Test Radiology reviewed: Image reviewed, Reports reviewed Radiology results interpreted by me: 12/25/19 13:53 Chest X-Ray 12/25/19 12:03 IMPRESSION: NO ACUTE RADIOGRAPHIC FINDING IN THE CHEST. - EKG Interpretation by Me Additional EKG results interpreted by me: 12/25/19 13:53 Sinus tachycardia with a rate of 104 bpm, PVC noted. Normal axis. First-degree AV block. Nonspecific ST changes, but no acute changes concerning for ischemia or infarction. No change compared to prior study. Discharge - Discharge Clinical Impression: Acute respiratory failure with hypoxia, COPD exacerbation Condition: Stable Disposition: ADMITTED INPATIENT Admitting Provider: Rola (Hospitalist) Unit Admitted: IMCU Referrals: BARBARA LANTIGUA MD [Primary Care Provider] - Follow up as needed
[2019-12-25] MEDS ORDERED: ALBUTEROL SULFATE 0.083% NEB 2.5 MG/3 ML AMPUL NEB PRN (16:43)
[2019-12-25] MEDS ORDERED: ONDANSETRON HCL INJ/PF 4 MG/2 ML SDV IV PRN (16:50)
[2019-12-25] MEDS ORDERED: MAG HYDROX/AL HYDROX/SIMETH SUSP 30 ML UDCUP PO PRN (16:50)
[2019-12-25] MEDS ORDERED: GLUCAGON,HUMAN RECOMB 1 MG INJ IM PRN (16:56)
[2019-12-25] MEDS ORDERED: DEXTROSE 50%-WATER 25 GM/50 ML DISP.SYRIN IV PRN ×2 (16:56)
[2019-12-25] MEDS ORDERED: DEXTROSE 40% GEL 15 GM TUBE PO PRN ×2 (16:56)
[2019-12-25] MEDS ORDERED: NICOTINE 14 MG/24 HR PATCH.TD24 TD PRN (17:04)
--- NOTE | 2019-12-25 17:17 | PDOC H&P ---
History of Present Illness Admission Date/PCP: 12/25/19 15:30 BARBARA LANTIGUA MD Patient complains of: Shortness of breath History of Present Illness: VIVEK MAGUIRE is a 74 year old female with a history of COPD, diabetes mellitus, who presents to the hospital via EMS for evaluation of shortness of breath. Patient lives alone. Patient was found by her home health nurse today who noted that patient was having a very tough time breathing and checked her p ulse oximeter which showed SPO2 in the 60s. She subsequently called EMS. According to ER staff, on EMS arrival her pulse ox was noted to be in the 40s. She was given breathing treatments and improved to the 70s. She was noted to have work of breathing so placed on a BiPAP in route. In the ER, she was noted to be 77% on room air. She was still working to breathe and subsequently placed on BiPAP machine in the ER as well. Patient states that this often happens seasonally when the weather becomes too humid. She has chronic cough from her smoking history with only mild to minimal worsening recently. She denies any chest pain or tightness. She denies any fever or chills. Endorses mild rhinorrhea. Denies any sick contacts. Past Medical History Cardiac Medical History: Reports: Hyperlipidema, Hypertension Denies: Atrial Fibrillation, Congestive Heart Failure, Coronary Artery Disease, Myocardial Infarction, Peripheral Vascular Disease, Pulmonary Embolism, Heart Murmur Pulmonary Medical History: Reports: Chronic Obstructive Pulmonary Disease (COPD) Denies: Pneumonia, Respiratory Failure, Sleep Apnea, Tuberculosis Neurological Medical History: Denies: Seizures Endocrine Medical History: Reports: Diabetes Mellitus Type 2 Denies: Hyperthyroidism, Hypothyroidism Malignancy Medical History: Denies: Lung Cancer GI Medical History: Denies: Gastroesophageal Reflux Disease Musculoskeltal Medical History: Reports: Arthritis Denies: Fibromyalgia Psychiatric Medical History: Reports: Depression Denies: Bipolar Disorder, Post Traumatic Stress Disorder Hematology: Denies: Anemia, Bleeding Tendencies Past Surgical History Past Surgical History: Reports: Adenoidectomy, Orthopedic Surgery - Patient has had both left and right hip fracture repairs secondary to falls, Tonsillectomy, Other - Cataract, left great toe amputation Denies: Amputation, Appendectomy, Section, Cholecystectomy, Coronary Artery Bypass Graft, Gastric Bypass Surgery, Herniorrhaphy, Hysterectomy, Mastectomy, Tubal Ligation Social History Smoking Status: Current Every Day Smoker Frequency of Alcohol Use: None Hx Recreational Drug Use: No Drugs: None Hx Prescription Drug Abuse: No - Advance Directive Resuscitation Status: Do Not Resuscitate - dnr/dni confirmed with patient Family History Family History: CAD, Malignancy, Other Parental Family History Reviewed: Yes Children Family History Reviewed: Unknown Sibling(s) Family History Reviewed.: Yes Medication/Allergy Home Medications: Albuterol Sulfate [Proair HFA Inhalation Aerosol 8.5 gm MDI] 1 puff IH Q4HP PRN 10/13/19 Folic Acid [Folvite 1 mg Tablet] 1 mg PO DAILY 10/13/19 Diltiazem HCl [Diltiazem 24Hr ER (Cd)] 240 mg PO DAILY 12/25/19 Hydralazine HCl [Apresoline 50 mg Tablet] 50 mg PO BID 12/25/19 Insulin Glargine,Hum.rec.anlog [Lantus Insulin 100 Unit/mL Insulin Pen] 40 unit SUBCUT BID 12/25/19 Pregabalin 100 mg PO DAILY 12/25/19 Ropinirole HCl 1 mg PO QHS 12/25/19 Tiotropium Hankinson [Spiriva Handihaler 5 Cap/Kit (18 Mcg/Cap)] 1 cap IH DAILY 12/25/19 Trazodone HCl [Desyrel 50 mg Tablet] 50 mg PO HSP PRN 12/25/19 Allergies/Adverse Reactions: valsartan [From Diovan] Allergy (Unknown, Verified 11/17/19 18:14) Skin Redness Penicillins Allergy (Verified 11/17/19 18:14) exenatide [From Byetta] Adverse Reaction (Severe, Verified 11/17/19 18:14) Migraine quetiapine [From Seroquel] Adverse Reaction (Verified 11/17/19 18:14) insomnia topiramate [From Topamax] Adverse Reaction (Verified 11/17/19 18:14) vision changes Review of Systems Constitutional: ABSENT: chills, fever(s) Eyes: ABSENT: visual disturbances Nose, Mouth, and Throat: ABSENT: headache(s) Cardiovascular: ABSENT: chest pain Respiratory: PRESENT: cough, dyspnea. ABSENT: sputum Gastrointestinal: ABSENT: abdominal pain, nausea, vomiting Genitourinary: ABSENT: dysuria Musculoskeletal: PRESENT: back pain - occasional Integumentary: ABSENT: diaphoresis Neurological: ABSENT: dizziness Psychiatric: PRESENT: other - Restless legs Endocrine: ABSENT: polyuria Allergic/Immunologic: PRESENT: seasonal rhinorrhea Physical Exam Vital Signs: Temp Pulse Resp BP Pulse Ox 98.6 F 19 160/88 H 93 12/25/19 12:12 12/25/19 16:15 12/25/19 16:15 12/25/19 16:15 Intake & Output 12/24/19 12/25/19 12/26/19 06:59 06:59 06:59 Weight 65.771 kg General appearance: PRESENT: no acute distress, cooperative, thin Mouth exam: PRESENT: neck supple Neck exam: ABSENT: JVD Respiratory exam: PRESENT: prolonged expiratory phas, symmetrical, tachypnea, unlabored, wheezes - minimal. ABSENT: accessory muscle use, retraction Cardiovascular exam: PRESENT: RRR, +S1, +S2. ABSENT: tachycardia GI/Abdominal exam: PRESENT: soft. ABSENT: rebound, rigid, tenderness Extremities exam: PRESENT: +1 edema. ABSENT: calf tenderness Neurological exam: PRESENT: alert, awake, oriented to person, oriented to place, oriented to time Psychiatric exam: ABSENT: agitated Focused psych exam: PRESENT: restlessness - Restless legs Skin exam: ABSENT: jaundice Results Laboratory Results: 12/25/19 12:02 12/25/19 12:02 12/25/19 12/25/19 12/25/19 12:02 12:02 12:02 WBC 10.5 RBC 4.59 Hgb 10.4 L Hct 34.5 L MCV 75 L MCH 22.6 L MCHC 30.1 L RDW 21.8 H Plt Count 321 Seg Neutrophils % 71.8 VBG pH 7.20 L VBG pCO2 73.7 H* VBG HCO3 28.2 VBG Base Excess -1.2 Sodium 136.2 L Potassium 4.8 Chloride 102 Carbon Dioxide 28 Anion Gap 6 BUN 23 H Creatinine 1.39 H Est GFR ( Amer) 45 L Glucose 109 Lactic Acid Calcium 8.3 L Total Bilirubin 0.4 AST 34 Alkaline Phosphatase 122 Total Protein 6.6 Albumin 3.6 12/25/19 12/25/19 12:02 14:59 WBC RBC Hgb Hct MCV MCH MCHC RDW Plt Count Seg Neutrophils % VBG pH VBG pCO2 VBG HCO3 VBG Base Excess Sodium Potassium Chloride Carbon Dioxide Anion Gap BUN Creatinine Est GFR ( Amer) Glucose Lactic Acid 0.7 1.1 Calcium Total Bilirubin AST Alkaline Phosphatase Total Protein Albumin 12/25/19 12:02 Troponin I 0.016 Impressions: Chest X-Ray 12/25/19 12:03 IMPRESSION: NO ACUTE RADIOGRAPHIC FINDING IN THE CHEST. Assessment and Plan - Diagnosis (1) Acute respiratory failure with hypoxia Is this a current diagnosis for this admission?: Yes Plan: Patient was noted to be significantly hypoxic in the field. Reported that her SPO2 was in the 60s on presentation of her home nurse, in the 40s on arrival of ambulance. In the ER, patient was noted to be 77% on room air. I reviewed patient's last hospital visit at which time patient's SPO2 was in the 90s on room air. This significantly concerns me for an acute event. STAT CTA of the chest Check ABG [currently on BiPAP 30% FiO2] (2) Acute and chronic respiratory failure with hypercapnia Is this a current diagnosis for this admission?: Yes Plan: Venous blood gas shows hypercapnic respiratory failure with PCO2 in the 70s. Likely from COPD exacerbation. I will continue patient on BiPAP 12/6 FiO2 30% and repeat an ABG. Will adjust settings as needed. (3) COPD exacerbation Is this a current diagnosis for this admission?: Yes Plan: Patient states that COPD is often triggered by humidity during this season. Patient will also be tested for COVID-19. Frequent duo nebs every 6 hours, azithromycin and IV Solu-Medrol. (4) Alcohol use disorder Is this a current diagnosis for this admission?: Yes Plan: Patient states that she has stopped drinking. We will keep an eye out for any withdrawal symptoms given previously documented history of alcohol abuse. (5) Diabetes mellitus type 2 in nonobese Is this a current diagnosis for this admission?: Yes Plan: Sliding scale insulin, Lantus 10 units nightly as prescribed during her last discharge 2 months ago. Awaiting med reconciliation. Accu-Cheks. Diabetic diet (6) Restless leg syndrome Is this a current diagnosis for this admission?: Yes Plan: Resume pramipexole (7) Tobacco abuse Is this a current diagnosis for this admission?: Yes Plan: Nicotine patch will be made available. Smoking cessation counseling. - Time Time Spent with patient: 35 or more minutes Anticipated Discharge Disposition: Home, Self Care Anticipated Discharge Timeframe: within 72 hours
[2019-12-25] MEDS ORDERED: AZITHROMYCIN 250 MG TABLET PO ONE ×2 (18:00→22:00)
[2019-12-25] MEDS ORDERED: METHYLPREDNISOLONE INJ 40 MG/1 ML SDV IV SCH (18:00)
[2019-12-25] MEDS ORDERED: CLOBETASOL PROPIONATE 0.05% CREAM 15 GM TP PRN (18:00)
[2019-12-25 18:54] LABS: ARTERIAL BLOOD BASE EXCESS 0.4 mmol/L; ARTERIAL BLOOD H2CO3 1.82 mmol/L (1.05-1.35); ARTERIAL BLOOD O2 SATURATION 93.8 % (94-98); ARTERIAL BLOOD PCO2 60.3 mmHg (35-45); ARTERIAL BLOOD PH 7.29 (7.35-7.45); ARTERIAL BLOOD PO2 78.3 mmHg (80-100); ARTERIAL BLOOD TOTAL CO2 29.9 mmol/L (21-25)
[2019-12-25 18:55] LABS: ARTERIAL BLOOD FIO2 30%
[2019-12-25] MEDS ORDERED: PRAMIPEXOLE DI-HCL 0.5 MG TABLET PO SCH (19:00)
--- NOTE | 2019-12-25 19:27 | RADIOLOGY REPORT (SQ) ---
EXAM DESCRIPTION: CTA CHEST IMAGES COMPLETED DATE/TIME: 12/25/2019 7:06 pm REASON FOR STUDY: severe hypoxia COMPARISON: 10/19/2018 TECHNIQUE: CT scan of the chest performed using helical scanning technique with dynamic intravenous contrast injection. Images reviewed with lung, soft tissue and bone windows. Reconstructed coronal and sagittal MPR images reviewed. Additional 3 dimensional post-processing performed to develop Maximal Intensity Projection images (PA P). All images stored on PACS. All CT scanners at this facility use dose modulation, iterative reconstruction, and/or weight based d osing when appropriate to reduce radiation dose to as low as reasonably achievable (ALARA). [facility]: Dose Right [facility]: CareDose [facility]: Dose Right [facility]: Teradose 4D [facility]: KnowledgeMill CONTRAST TYPE AND DOSE: contrast/concentration: Isovue 350.00 mmol/ml; Total Contrast Delivered: 52. 0 ml; Total Saline Delivered: 58.0 ml Contrast bolus adequate for pulmonary arteries and aorta. RENAL FUNCTION: BUN 23 creatinine 1.39 RADIATION DOSE: CT Rad equipment meets quality standard of care and radiation dose reduction techniq ues were employed. CTDIvol: 6.6 - 14.5 mGy. DLP: 506 mGy-cm. . LIMITATIONS: None. FINDINGS: LUNGS AND PLEURA: Minimal pleural effusions. Minimal atelectasis in the lower lobes. AORTA AND GREAT VESSELS: No aneurysm. Contrast bolus not optimized for the aorta. HEART: No pericardial effusion. Moderate to marked coronary artery calcifications. PULMONARY ARTERIES: No emboli visualized in the main pulmonary arteries or the segmental branches. HILAR AND MEDIASTINAL STRUCTURES: No identified masses or abnormal nodes. HARDWARE: None in the chest. UPPER ABDOMEN: 6 cm left renal cyst. THYROID AND OTHER SOFT TISSUES: No masses. No adenopathy. BONES: No acute or significant finding. 3D MIPS: Confirm above findings. OTHER: No other significant finding. IMPRESSION: There is no pulmonary embolus. There is no aortic aneurysm or dissection. Minimal pleu ral effusions with minimal dependent atelectasis in the lower lobes. COMMENT: Quality ID # [id number]: Final reports with documentation of one or more dose reduction techniques (e.g., Automated exposure control, adjustment of the mA and/or kV according to patient size, use of iterative reconstruction technique) TECHNICAL DOCUMENTATION: JOB ID: [id number] [email or web address]- All Rights Reserved Reading location - IP/workstation name: [email or web address]
[2019-12-25] MEDS ORDERED: AZITHROMYCIN 250 MG TABLET PO SCH (20:00)
[2019-12-25] MEDS: IPRATROPIUM/ALBUTEROL 0.5-2.5 MG/3 ML AMPUL NEB SCH (20:59)
[2019-12-25] MEDS: INSULIN LISPRO 100 UNIT/ML 3 ML VIAL SUBCUT SCH (21:49)
[2019-12-25] MEDS: HYDRALAZINE HCL 50 MG TABLET PO SCH (21:50)
[2019-12-25] MEDS: METHYLPREDNISOLONE INJ 40 MG/1 ML SDV IV SCH (21:50)
[2019-12-25] MEDS: ROPINIROLE HCL 1 MG TABLET PO SCH (21:50)
[2019-12-25] MEDS: HEPARIN SOD (PORCINE) 5,000 UNIT/ML 1 ML VIAL SUBCUT SCH (21:50)
[2019-12-25] MEDS ORDERED: INSULIN GLARGINE,HUM.REC.ANLOG 1,000 UNIT/10 ML VIAL (PYX) SUBCUT ONE (22:00)
[2019-12-25] MEDS: INSULIN GLARGINE,HUM.REC.ANLOG 1,000 UNIT/10 ML VIAL SUBCUT SCH (22:02)
[2019-12-26] MEDS: IPRATROPIUM/ALBUTEROL 0.5-2.5 MG/3 ML AMPUL NEB SCH ×4 (02:11→19:57)
[2019-12-26] MEDS: HEPARIN SOD (PORCINE) 5,000 UNIT/ML 1 ML VIAL SUBCUT SCH ×3 (05:06→21:45)
[2019-12-26 07:07] LABS: ABSOLUTE LYMPHOCYTES (AUTO) 0.6 10^3/uL (0.5-4.7); ABSOLUTE MONOCYTES (AUTO) 0.2 10^3/uL (0.1-1.4); ABSOLUTE NEUT (AUTO) 7.5 10^3/uL (1.7-8.2); BASOPHILS % (AUTO) 0.2 % (0-2); HEMATOCRIT 32.6 % (36.0-47.0); HEMOGLOBIN 9.9 g/dL (12.0-15.5); LYMPHOCYTES % (AUTO) 7.1 % (13-45); MEAN CORPUSCULAR HEMOGLOBIN 22.4 pg (27.0-33.4); MEAN CORPUSCULAR HGB CONC 30.4 g/dL (32.0-36.0); MEAN CORPUSCULAR VOLUME 74 fl (80-97); MONOCYTES % (AUTO) 2.3 % (3-13); PLATELET COUNT 289 10^3/uL (150-450); RED BLOOD COUNT 4.42 10^6/uL (3.72-5.28); RED CELL DISTRIBUTION WIDTH 21.3 % (11.5-14.0); SEGMENTED NEUTROPHILS % (AUTO) 90.4 % (42-78); TOTAL CELLS COUNTED % (AUTO) 100 %; WHITE BLOOD COUNT 8.3 10^3/uL (4.0-10.5)
[2019-12-26 07:29] LABS: ANION GAP 8 (5-19); BLOOD UREA NITROGEN 35 mg/dL (7-20); CALCIUM 7.9 mg/dL (8.4-10.2); CARBON DIOXIDE 26 mmol/L (22-30); CHLORIDE 103 mmol/L (98-107); GLUCOSE 197 mg/dL (75-110); PHOSPHORUS 4.3 mg/dL (2.5-4.5); POTASSIUM 5.3 mmol/L (3.6-5.0)
[2019-12-26] MEDS: INSULIN LISPRO 100 UNIT/ML 3 ML VIAL SUBCUT SCH ×4 (08:07→21:46)
[2019-12-26] MEDS: DILTIAZEM HCL 120 MG CAP.SR.24H PO SCH (09:28)
[2019-12-26] MEDS: HYDRALAZINE HCL 50 MG TABLET PO SCH ×2 (09:28→21:45)
[2019-12-26] MEDS: FOLIC ACID 1 MG TABLET PO SCH (09:28)
[2019-12-26] MEDS: METHYLPREDNISOLONE INJ 40 MG/1 ML SDV IV SCH (09:28)
[2019-12-26] MEDS ORDERED: VENLAFAXINE HCL 75 MG CAP.SR.24H PO SCH (10:00)
--- NOTE | 2019-12-26 15:40 | PDOC PROGRESS REPORT ---
Subjective Progress Note for:: 12/26/19 Subjective:: The patient is laying across the bed. She does not appear to be in any distress. She is on nasal cannula. She is happy that she did not wear the BiPAP today. She does not seem to tolerate it all that well. Reason For Visit: HYPOXIA, HYPERCAPNIA, COPD EXACERBATION Physical Exam Vital Signs: Temp Pulse Resp BP Pulse Ox 98.3 F 101 H 19 156/81 H 93 12/26/19 11:09 12/26/19 14:13 12/26/19 14:13 12/26/19 11:09 12/26/19 14:13 Intake & Output 12/25/19 12/26/19 12/27/19 06:59 06:59 06:59 Intake Total 520 Balance 520 Weight 63 kg 63.3 kg General appearance: PRESENT: no acute distress, cooperative, well-developed Head exam: PRESENT: atraumatic, normocephalic Eye exam: PRESENT: conjunctiva pink. ABSENT: scleral icterus Ear exam: PRESENT: normal external ear exam. ABSENT: bleeding, drainage Neck exam: ABSENT: carotid bruit, JVD, lymphadenopathy Respiratory exam: PRESENT: decreased breath sounds - Bases, symmetrical, unlabored. ABSENT: rales, rhonchi, tachypnea, wheezes Cardiovascular exam: PRESENT: RRR, +S1, +S2. ABSENT: bradycardia, diastolic m urmur, irregular rhythm, systolic murmur, tachycardia GI/Abdominal exam: PRESENT: normal bowel sounds, soft. ABSENT: distended, guarding, mass, tenderness Rectal exam: PRESENT: deferred Gentrourinary exam: ABSENT: indwelling catheter Extremities exam: ABSENT: pedal edema Musculoskeletal exam: PRESENT: normal inspection. ABSENT: deformity, dislocation Neurological exam: PRESENT: alert, awake, oriented to person, oriented to place, oriented to situation, CN II-XII grossly intact Psychiatric exam: PRESENT: flat affect. ABSENT: agitated, anxious Focused psych exam: ABSENT: delusional, paranoid, restlessness Skin exam: PRESENT: dry, warm. ABSENT: rash Results Laboratory Results: 12/26/19 06:24 12/26/19 06:24 12/25/19 12/25/19 12/26/19 18:19 18:57 06:24 WBC 8.3 RBC 4.42 Hgb 9.9 L Hct 32.6 L MCV 74 L MCH 22.4 L MCHC 30.4 L RDW 21.3 H Plt Count 289 Seg Neutrophils % 90.4 H Carbonic Acid 1.82 H HCO3/H2CO3 Ratio 15:1 ABG pH 7.29 L ABG pCO2 60.3 H ABG pO2 78.3 L ABG HCO3 28.0 H ABG O2 Saturation 93.8 L ABG Base Excess 0.4 FiO2 30% Sodium Potassium Chloride Carbon Dioxide Anion Gap BUN Creatinine Est GFR ( Amer) Glucose Lactic Acid 1.2 Calcium Phosphorus Magnesium 12/26/19 06:24 WBC RBC Hgb Hct MCV MCH MCHC RDW Plt Count Seg Neutrophils % Carbonic Acid HCO3/H2CO3 Ratio ABG pH ABG pCO2 ABG pO2 ABG HCO3 ABG O2 Saturation ABG Base Excess FiO2 Sodium 136.6 L Potassium 5.3 H Chloride 103 Carbon Dioxide 26 Anion Gap 8 BUN 35 H Creatinine 1.92 H Est GFR ( Amer) 31 L Glucose 197 H Lactic Acid Calcium 7.9 L Phosphorus 4.3 Magnesium 2.4 H 12/25/19 12:02 Troponin I 0.016 Impressions: Chest/Abdomen CTA 12/25/19 00:00 IMPRESSION: There is no pulmonary embolus. There is no aortic aneurysm or dissection. Minimal pleural effusions with minimal dependent atelectasis in the lower lobes. Chest X-Ray 12/25/19 12:03 IMPRESSION: NO ACUTE RADIOGRAPHIC FINDING IN THE CHEST. Assessment and Plan - Diagnosis (1) Acute on chronic respiratory failure with hypoxia and hypercapnia Is this a current diagnosis for this admission?: Yes Plan: Oxygen supplementation with BiPAP as tolerated. Nebulizer treatments as well as systemic steroids. (2) COPD exacerbation Is this a current diagnosis for this admission?: Yes Plan: Complete azithromycin. Medications as above. Attempt to taper from BiPAP and wean oxygen as tolerated. (3) Alcohol use disorder Is this a current diagnosis for this admission?: Yes Plan: Patient states that she has stopped drinking. We will keep an eye out for any withdrawal symptoms given previously documented history of alcohol abuse. We will utilize benzodiazepine therapy only if needed (4) Hyperglycemia due to diabetes mellitus Is this a current diagnosis for this admission?: Yes Plan: Continue diabetic diet, Lantus and sliding scale insulin. Accu-Cheks are still mostly above 200. I have increased Lantus to 14 units. (5) Restless leg syndrome Is this a current diagnosis for this admission?: Yes Plan: Continue ropinirole (6) Tobacco abuse Is this a current diagnosis for this admission?: Yes Plan: Nicotine patch will be made available. Smoking cessation counseling. - Time Time Spent with patient: 15-24 minutes Medications reviewed and adjusted accordingly: Yes Anticipated Discharge Disposition: Home with Home Health Anticipated Discharge Timeframe: within 72 hours
[2019-12-26] MEDS: AZITHROMYCIN 250 MG TABLET PO SCH (17:01)
[2019-12-26] MEDS: NORMAL SALINE 1000 ML 1,000 ML IV PRN (17:03)
[2019-12-26] MEDS ORDERED: AZITHROMYCIN 250 MG TABLET PO SCH (18:00)
[2019-12-26] MEDS: ROPINIROLE HCL 1 MG TABLET PO SCH (21:43)
[2019-12-26] MEDS: INSULIN GLARGINE,HUM.REC.ANLOG 1,000 UNIT/10 ML VIAL SUBCUT SCH (21:46)
[2019-12-27] MEDS: IPRATROPIUM/ALBUTEROL 0.5-2.5 MG/3 ML AMPUL NEB SCH ×2 (02:23→08:35)
[2019-12-27] MEDS: NORMAL SALINE 1000 ML 1,000 ML IV PRN (03:17)
[2019-12-27 05:44] LABS: MEAN CORPUSCULAR VOLUME 73 fl (80-97); TOTAL CELLS COUNTED % (AUTO) 100 %
[2019-12-27] MEDS: HEPARIN SOD (PORCINE) 5,000 UNIT/ML 1 ML VIAL SUBCUT SCH ×3 (05:55→22:21)
[2019-12-27 06:04] LABS: ABSOLUTE LYMPHOCYTES (AUTO) 1.7 10^3/uL (0.5-4.7); ABSOLUTE MONOCYTES (AUTO) 0.9 10^3/uL (0.1-1.4); BASOPHILS % (AUTO) 0.1 % (0-2); HEMATOCRIT 31.6 % (36.0-47.0); HEMOGLOBIN 9.6 g/dL (12.0-15.5); LYMPHOCYTES % (AUTO) 12.3 % (13-45); MEAN CORPUSCULAR HEMOGLOBIN 22.2 pg (27.0-33.4); MEAN CORPUSCULAR HGB CONC 30.5 g/dL (32.0-36.0); MONOCYTES % (AUTO) 6.3 % (3-13); PLATELET COUNT 301 10^3/uL (150-450); RED BLOOD COUNT 4.33 10^6/uL (3.72-5.28); RED CELL DISTRIBUTION WIDTH 21.5 % (11.5-14.0); SEGMENTED NEUTROPHILS % (AUTO) 81.3 % (42-78); WHITE BLOOD COUNT 13.6 10^3/uL (4.0-10.5)
[2019-12-27 06:05] LABS: ANION GAP 6 (5-19); BLOOD UREA NITROGEN 39 mg/dL (7-20); CALCIUM 7.7 mg/dL (8.4-10.2); CARBON DIOXIDE 26 mmol/L (22-30); CHLORIDE 102 mmol/L (98-107); GLUCOSE 117 mg/dL (75-110); POTASSIUM 4.6 mmol/L (3.6-5.0)
[2019-12-27] MEDS: INSULIN LISPRO 100 UNIT/ML 3 ML VIAL SUBCUT SCH ×4 (08:41→22:20)
[2019-12-27] MEDS ORDERED: ALBUTEROL SULFATE HFA (90 MCG/PUFF) 8 GM MDI IH PRN (08:46)
[2019-12-27] MEDS ORDERED: ALBUTEROL SULFATE HFA (90 MCG/PUFF) 200 PUFF/8.5 GM MDI IH PRN (08:59)
[2019-12-27] MEDS: METHYLPREDNISOLONE INJ 40 MG/1 ML SDV IV SCH (09:27)
[2019-12-27] MEDS: FOLIC ACID 1 MG TABLET PO SCH (09:27)
[2019-12-27] MEDS: DILTIAZEM HCL 120 MG CAP.SR.24H PO SCH (09:27)
[2019-12-27] MEDS: HYDRALAZINE HCL 50 MG TABLET PO SCH ×2 (09:28→22:20)
[2019-12-27] MEDS: UMECLIDINIUM BROMIDE 62.5 MCG/DOSE IH SCH (11:24)
--- NOTE | 2019-12-27 15:05 | PDOC PROGRESS REPORT ---
Subjective Progress Note for:: 12/27/19 Subjective:: Patient appears stable. She remains on 3.5 L nasal cannula with oxygen saturations between 88 and 92%. She has no complaints. Reason For Visit: HYPOXIA, HYPERCAPNIA, COPD EXACERBATION Physical Exam Vital Signs: Temp Pulse Resp BP Pulse Ox 98.2 F 95 18 156/66 H 91 L 12/27/19 11:07 12/27/19 14:00 12/27/19 11:07 12/27/19 11:07 12/27/19 11:07 Intake & Output 12/26/19 12/27/19 12/28/19 06:59 06:59 06:59 Intake Total 2005 1240 Balance 2005 1240 Weight 63 kg 63.1 kg 63.1 kg General appearance: PRESENT: no acute distress - Appears to be at her baseline, cooperative, well-developed Head exam: PRESENT: atraumatic, normocephalic Eye exam: PRESENT: conjunctiva pink. ABSENT: scleral icterus Ear exam: PRESENT: normal external ear exam. ABSENT: bleeding, drainage Mouth exam: PRESENT: moist, tongue midline Respiratory exam: PRESENT: clear to auscultation lauren, prolonged expiratory phas, symmetrical, unlabored. ABSENT: rales, rhonchi, tachypnea, wheezes Cardiovascular exam: PRESENT: RRR, +S1, +S2. ABSENT: bradycardia, diastolic murmur, irregular rhythm, systolic murmur, tachycardia GI/Abdominal exam: PRESENT: normal bowel sounds, soft. ABSENT: distended, mass, tenderness Rectal exam: PRESENT: deferred Gentrourinary exam: ABSENT: indwelling catheter Extremities exam: ABSENT: joint swelling, pedal edema Musculoskeletal exam: PRESENT: ambulatory, normal inspection. ABSENT: deformity, dislocation Neurological exam: PRESENT: alert, awake, oriented to person, oriented to place, oriented to time, oriented to situation, CN II-XII grossly intact. ABSENT: altered Psychiatric exam: PRESENT: flat affect. ABSENT: agitated, anxious Focused psych exam: ABSENT: delusional, paranoid, restlessness Skin exam: PRESENT: dry, warm. ABSENT: rash Results Laboratory Results: 12/27/19 04:17 12/27/19 04:17 12/27/19 12/27/19 04:17 04:17 WBC 13.6 H RBC 4.33 Hgb 9.6 L Hct 31.6 L MCV 73 L MCH 22.2 L MCHC 30.5 L RDW 21.5 H Plt Count 301 Seg Neutrophils % 81.3 H Sodium 134.3 L Potassium 4.6 Chloride 102 Carbon Dioxide 26 Anion Gap 6 BUN 39 H Creatinine 1.34 H Est GFR ( Amer) 47 L Glucose 117 H Calcium 7.7 L 12/25/19 12:02 Troponin I 0.016 Impressions: Chest/Abdomen CTA 12/25/19 00:00 IMPRESSION: There is no pulmonary embolus. There is no aortic aneurysm or dissection. Minimal pleural effusions with minimal dependent atelectasis in the lower lobes. Chest X-Ray 12/25/19 12:03 IMPRESSION: NO ACUTE RADIOGRAPHIC FINDING IN THE CHEST. Assessment and Plan - Diagnosis (1) Acute on chronic respiratory failure with hypoxia and hypercapnia Is this a current diagnosis for this admission?: Yes Plan: Oxygen supplementation with BiPAP as tolerated. Nebulizer treatments as well as systemic steroids. The patient continues to feel better and believes she is at her baseline. She does not currently have oxygen at home. The patient has been refusing her BiPAP for the last 2 days and I have discontinued same. (2) COPD exacerbation Is this a current diagnosis for this admission?: Yes Plan: Finish azithromycin. Continue nebulizer treatments and substitute Umeclidinium for her Spiriva (3) Alcohol use disorder Is this a current diagnosis for this admission?: Yes Plan: Patient states that she has stopped drinking. We will keep an eye out for any withdrawal symptoms given previously documented history of alcohol abuse. We will utilize benzodiazepine therapy only if needed No evidence of alcohol withdrawal. Serum alcohol level was not checked at the time of admission. (4) Hyperglycemia due to diabetes mellitus Is this a current diagnosis for this admission?: Yes Plan: Accu-Cheks still very considerably. This could be related to appetite. I have also decreased her systemic steroids to once daily from 3 times a day. (5) Restless leg syndrome Is this a current diagnosis for this admission?: Yes Plan: Continue ropinirole Currently stable (6) Tobacco abuse Is this a current diagnosis for this admission?: Yes Plan: Nicotine patch will be made available. Smoking cessation counseling. As patient will be on home oxygen therapy I will continue education regarding the dangers of smoking (7) Hypocalcemia Is this a current diagnosis for this admission?: Yes Plan: Serum calcium is low at 7.7. Albumin is normal so there is no correction factor. I have initiated calcium with vitamin D supplement. (8) Acute kidney injury superimposed on CKD Is this a current diagnosis for this admission?: Yes Plan: Unsure of etiology. Likely poor volume intake. Improving with IV fluids. (9) Hyperkalemia Is this a current diagnosis for this admission?: Yes Plan: Potassium was 5.1. It is back to normal. It was likely increased from the acute on chronic kidney failure. Continue to monitor. - Time Time Spent with patient: 15-24 minutes Medications reviewed and adjusted accordingly: Yes Anticipated Discharge Disposition: Home with Home Health Anticipated Discharge Timeframe: within 24 hours
[2019-12-27] MEDS: AZITHROMYCIN 250 MG TABLET PO SCH (17:07)
[2019-12-27] MEDS: CALCIUM CARBONATE 600 MG/VITAMIN D3 400 UNIT TABLET PO SCH (17:07)
[2019-12-27] MEDS: ROPINIROLE HCL 1 MG TABLET PO SCH (22:20)
[2019-12-27] MEDS: ACETAMINOPHEN 325 MG TABLET PO PRN (22:20)
[2019-12-27] MEDS: INSULIN GLARGINE,HUM.REC.ANLOG 1,000 UNIT/10 ML VIAL SUBCUT SCH (22:21)
[2019-12-28] MEDS: HEPARIN SOD (PORCINE) 5,000 UNIT/ML 1 ML VIAL SUBCUT SCH ×3 (05:12→21:43)
[2019-12-28] MEDS: ACETAMINOPHEN 325 MG TABLET PO PRN (05:12)
[2019-12-28] MEDS: LORAZEPAM INJ 2 MG/1 ML VIAL IV PRN ×2 (06:12→10:14)
[2019-12-28] MEDS ORDERED: ONDANSETRON HCL INJ/PF 4 MG/2 ML SDV IV PRN (07:30)
[2019-12-28] MEDS: INSULIN LISPRO 100 UNIT/ML 3 ML VIAL SUBCUT SCH ×4 (08:09→21:43)
[2019-12-28] MEDS: HYDRALAZINE HCL 50 MG TABLET PO SCH ×2 (09:16→21:43)
[2019-12-28] MEDS: CALCIUM CARBONATE 600 MG/VITAMIN D3 400 UNIT TABLET PO SCH ×2 (09:16→18:12)
[2019-12-28] MEDS: FOLIC ACID 1 MG TABLET PO SCH (09:16)
[2019-12-28] MEDS: DILTIAZEM HCL 120 MG CAP.SR.24H PO SCH (09:16)
[2019-12-28] MEDS: METHYLPREDNISOLONE INJ 40 MG/1 ML SDV IV SCH (09:16)
[2019-12-28] MEDS: UMECLIDINIUM BROMIDE 62.5 MCG/DOSE IH SCH (09:17)
--- NOTE | 2019-12-28 13:09 | PDOC PROGRESS REPORT ---
Subjective Progress Note for:: 12/28/19 Subjective:: Nursing reports that the patient was extremely confused last night. She is also extremely confused this morning. She required increased oxygen supply. She has a significant risk for hypercapnia. Reason For Visit: HYPOXIA, HYPERCAPNIA, COPD EXACERBATION Physical Exam Vital Signs: Temp Pulse Resp BP Pulse Ox 98.4 F 82 22 H 127/68 H 94 12/28/19 12:00 12/28/19 12:00 12/28/19 12:00 12/28/19 12:00 12/28/19 12:00 Intake & Output 12/27/19 12/28/19 12/29/19 06:59 06:59 06:59 Intake Total 2005 1684 Output Total 350 Balance 2005 1684 -350 Weight 63.1 kg 63.1 kg General appearance: PRESENT: mild distress, well-developed, other - Restless in bed. Did not respond to direct questioning. Difficult to examine.. ABSENT: cooperative Head exam: PRESENT: atraumatic, normocephalic Ear exam: PRESENT: normal external ear exam. ABSENT: bleeding, drainage Mouth exam: PRESENT: other - Unable to assess Respiratory exam: PRESENT: decreased breath sounds, symmetrical, unlabored. ABSENT: rales, rhonchi, tachypnea, wheezes Cardiovascular exam: PRESENT: RRR, +S1, +S2 GI/Abdominal exam: PRESENT: normal bowel sounds, soft. ABSENT: tenderness Rectal exam: PRESENT: deferred Neurological exam: PRESENT: altered - Confused and disoriented Psychiatric exam: PRESENT: unusual affect Results Laboratory Results: 12/27/19 04:17 12/27/19 04:17 12/25/19 12:02 Troponin I 0.016 Impressions: Chest/Abdomen CTA 12/25/19 00:00 IMPRESSION: There is no pulmonary embolus. There is no aortic aneurysm or dissection. Minimal pleural effusions with minimal dependent atelectasis in the lower lobes. Chest X-Ray 12/25/19 12:03 IMPRESSION: NO ACUTE RADIOGRAPHIC FINDING IN THE CHEST. Assessment and Plan - Diagnosis (1) Acute on chronic respiratory failure with hypoxia and hypercapnia Is this a current diagnosis for this admission?: Yes Plan: The patient was slated to go home today once her home oxygen was in place. A blood gas was drawn because of the acute changes. It was not significantly different from a gas several days ago and so the patient is not suffering from an acute increase in PCO2. Looking back she did get some benzodiazepine therapy last night. This could be affecting her mental state. This should necessarily require increased oxygen. I did obtain a chest x-ray and there is suggestion of slight increased pleural effusion. Will monitor closely. The patient is COVID negative and will be transitioning to the fifth floor. (2) COPD exacerbation Is this a current diagnosis for this admission?: Yes Plan: The patient was fairly stable. She had decompensated last night and this morn ing. Her medications will continue unchanged. I will consider decreasing her Solu-Medrol once again. (3) Alcohol use disorder Is this a current diagnosis for this admission?: Yes Plan: Patient states that she has stopped drinking. We will keep an eye out for any withdrawal symptoms given previously documented history of alcohol abuse. We will utilize benzodiazepine therapy only if needed No evidence of alcohol withdrawal. Serum alcohol level was not checked at the time of admission. I do not believe the events of last night are related to her alcohol use disorder. We will continue to provide supportive care and monitor for any signs of withdrawal. (4) Hyperglycemia due to diabetes mellitus Is this a current diagnosis for this admission?: Yes Plan: Accu-Cheks are still extremely variable. It did decrease the Solu-Medrol and increase the Lantus slightly. I will discontinue the Solu-Medrol at this point and continue Lantus and sliding scale. (5) Restless leg syndrome Is this a current diagnosis for this admission?: Yes Plan: Continue ropinirole Currently stable The events of last night and today are unrelated to her restless leg syndrome. (6) Tobacco abuse Is this a current diagnosis for this admission?: Yes Plan: Continue to encourage smoking cessation (7) Hypocalcemia Is this a current diagnosis for this admission?: Yes Plan: Oral calcium supplement initiated. Will recheck in several days. (8) Acute kidney injury superimposed on CKD Is this a current diagnosis for this admission?: Yes Plan: Serum creatinine was down to 1.34 yesterday. We will check labs tomorrow. (9) Hyperkalemia Is this a current diagnosis for this admission?: Yes Plan: Resolved (10) Acute metabolic encephalopathy Is this a current diagnosis for this admission?: Yes Plan: I fully expected the patient's PCO2 to be elevated. It was not. It is possible that the patient was sundowning and the benzodiazepine therapy worsened her condition. With her decreased renal function the medications may have been staying on board longer than normal. I have discontinued all benzodiazepine therapy and substituted several other medications. I am hoping that the patient is improved tomorrow and we can consider discharge. - Time Time Spent with patient: 25-34 minutes Medications reviewed and adjusted accordingly: Yes Anticipated Discharge Disposition: Home with Home Health Anticipated Discharge Timeframe: within 48 hours
[2019-12-28 13:28] LABS: ARTERIAL BLOOD BASE EXCESS 1.9 mmol/L; ARTERIAL BLOOD H2CO3 1.76 mmol/L (1.05-1.35); ARTERIAL BLOOD HCO3 29.1 mmol/L (20-24); ARTERIAL BLOOD O2 SATURATION 91.7 % (94-98); ARTERIAL BLOOD PCO2 58.5 mmHg (35-45); ARTERIAL BLOOD PH 7.31 (7.35-7.45); ARTERIAL BLOOD PO2 68.2 mmHg (80-100); ARTERIAL BLOOD TOTAL CO2 30.9 mmol/L (21-25)
[2019-12-28 13:29] LABS: ARTERIAL BLOOD FIO2 4L
--- NOTE | 2019-12-28 14:36 | RADIOLOGY REPORT (SQ) ---
EXAM DESCRIPTION: CHEST SINGLE VIEW IMAGES COMPLETED DATE/TIME: 12/28/2019 12:56 pm REASON FOR STUDY: increased dyspnea COMPARISON: Chest radiograph, 12/25/2019. CT chest, 12/25/2019. EXAM PARAMETERS: NUMBER OF VIEWS: One view. TECHNIQUE: Single frontal radiographic view of the chest acquired. RADIATION DOSE: NA LIMITATIONS: None. FINDINGS: LUNGS AND PLEURA: Hazy indistinct opacities in both lungs from mid to lower lung, likely r epresenting layering pleural effusions as seen on recent CT. No focal confluent consolidation. No p neumothorax. MEDIASTINUM AND HILAR STRUCTURES: No masses. Contour normal. HEART AND VASCULAR STRUCTURES: Heart normal in size. Normal vasculature. BONES: No acute findings. HARDWARE: None in the chest. OTHER: No other significant finding. IMPRESSION: Layering bilateral pleural effusions, not significantly changed. TECHNICAL DOCUMENTATION: JOB ID: [id number] 2010 [employer]- All Rights Reserved Reading location - IP/workstation name: [email or web address]
[2019-12-28] MEDS ORDERED: TRAZODONE HCL 50 MG TABLET PO PRN (17:35)
[2019-12-28] MEDS ORDERED: RISPERIDONE 0.25 MG TABLET PO PRN (17:37)
[2019-12-28] MEDS: AZITHROMYCIN 250 MG TABLET PO SCH (18:12)
[2019-12-28] MEDS: BUSPIRONE HCL 10 MG TABLET PO SCH (21:42)
[2019-12-28] MEDS: ROPINIROLE HCL 1 MG TABLET PO SCH (21:42)
[2019-12-28] MEDS: INSULIN GLARGINE,HUM.REC.ANLOG 1,000 UNIT/10 ML VIAL SUBCUT SCH (21:44)
[2019-12-29] MEDS: HEPARIN SOD (PORCINE) 5,000 UNIT/ML 1 ML VIAL SUBCUT SCH (05:14)
[2019-12-29 05:37] LABS: ABSOLUTE LYMPHOCYTES (AUTO) 1.5 10^3/uL (0.5-4.7); ABSOLUTE MONOCYTES (AUTO) 0.5 10^3/uL (0.1-1.4); ABSOLUTE NEUT (AUTO) 5.5 10^3/uL (1.7-8.2); BASOPHILS % (AUTO) 0.6 % (0-2); HEMATOCRIT 33.8 % (36.0-47.0); HEMOGLOBIN 10.4 g/dL (12.0-15.5); LYMPHOCYTES % (AUTO) 19.5 % (13-45); MEAN CORPUSCULAR HEMOGLOBIN 22.4 pg (27.0-33.4); MEAN CORPUSCULAR HGB CONC 30.6 g/dL (32.0-36.0); MEAN CORPUSCULAR VOLUME 73 fl (80-97); MONOCYTES % (AUTO) 6.2 % (3-13); PLATELET COUNT 292 10^3/uL (150-450); RED BLOOD COUNT 4.62 10^6/uL (3.72-5.28); RED CELL DISTRIBUTION WIDTH 21.2 % (11.5-14.0); SEGMENTED NEUTROPHILS % (AUTO) 73.7 % (42-78); TOTAL CELLS COUNTED % (AUTO) 100 %; WHITE BLOOD COUNT 7.4 10^3/uL (4.0-10.5)
[2019-12-29 05:49] LABS: ALBUMIN 3.3 g/dL (3.5-5.0); ALKALINE PHOSPHATASE 81 U/L (38-126); ASPARTATE AMINO TRANSFERASE 26 U/L (14-36); BILIRUBIN,TOTAL 0.4 mg/dL (0.2-1.3); BLOOD UREA NITROGEN 26 mg/dL (7-20); CALCIUM 8.4 mg/dL (8.4-10.2); GLUCOSE 85 mg/dL (75-110); POTASSIUM 4.6 mmol/L (3.6-5.0); TOTAL PROTEIN 5.8 g/dL (6.3-8.2)
[2019-12-29 05:54] LABS: CARBON DIOXIDE 35 mmol/L (22-30); CHLORIDE 100 mmol/L (98-107)
[2019-12-29 05:58] LABS: ANION GAP 1 (5-19)
[2019-12-29] MEDS: INSULIN LISPRO 100 UNIT/ML 3 ML VIAL SUBCUT SCH ×2 (08:55→11:49)
[2019-12-29] MEDS: HYDRALAZINE HCL 50 MG TABLET PO SCH (09:47)
[2019-12-29] MEDS: FOLIC ACID 1 MG TABLET PO SCH (09:48)
[2019-12-29] MEDS: DILTIAZEM HCL 120 MG CAP.SR.24H PO SCH (09:48)
[2019-12-29] MEDS: CALCIUM CARBONATE 600 MG/VITAMIN D3 400 UNIT TABLET PO SCH (09:48)
[2019-12-29] MEDS: BUSPIRONE HCL 10 MG TABLET PO SCH (09:49)
[2019-12-29] MEDS: UMECLIDINIUM BROMIDE 62.5 MCG/DOSE IH SCH (10:17)
[2019-12-29] MEDS ORDERED: RISPERIDONE 0.25 MG TABLET PO PRN (10:30)
--- NOTE | 2019-12-29 12:41 | PDOC DISCHARGE SUMMARY ---
Impression - Admit/DC Date/PCP Admission Date/Primary Care Provider: 12/25/19 15:30 BARBARA LATNIGUA MD Discharge Date: 12/29/19 - Discharge Diagnosis (1) Acute on chronic respiratory failure with hypoxia and hypercapnia Is this a current diagnosis for this admission?: Yes (2) COPD exacerbation Is this a current diagnosis for this admission?: Yes (3) Alcohol use disorder Is this a current diagnosis for this admission?: Yes (4) Hyperglycemia due to diabetes mellitus Is this a current diagnosis for this admission?: Yes (5) Restless leg syndrome Is this a current diagnosis for this admission?: Yes (6) Tobacco abuse Is this a current diagnosis for this admission?: Yes (7) Hypocalcemia Is this a current diagnosis for this admission?: Yes (8) Acute kidney injury superimposed on CKD Is this a current diagnosis for this admission?: Yes (9) Hyperkalemia Is this a current diagnosis for this admission?: Yes (10) Acute metabolic encephalopathy Is this a current diagnosis for this admission?: Yes - Additional Information Resuscitation Status: Do Not Resuscitate Discharge Diet: Cardiac, Diabetic Discharge Activity: Activity As Tolerated, Slowly Increase Activity Referrals: BARBARA LANTIGUA MD [Primary Care Provider] - 01/10/20 10:30 am Prescriptions: Fluticasone/Vilanterol [Breo 100-25 Mcg Ellipta 14 Dose/Dpi] 1 inh IH DAILY #1 inhaler Home Medications: Albuterol Sulfate [Proair HFA Inhalation Aerosol 8.5 gm MDI] 1 puff IH Q4HP PRN 10/13/19 Folic Acid [Folvite 1 mg Tablet] 1 mg PO DAILY 10/13/19 Diltiazem HCl [Diltiazem 24Hr ER (Cd)] 240 mg PO DAILY 12/25/19 Hydralazine HCl [Apresoline 50 mg Tablet] 50 mg PO BID 12/25/19 Pregabalin 100 mg PO DAILY 12/25/19 Ropinirole HCl 1 mg PO QHS 12/25/19 Tiotropium [place] [Spiriva Handihaler 5 Cap/Kit (18 Mcg/Cap)] 1 cap IH DAILY 12/25/19 Trazodone HCl [Desyrel 50 mg Tablet] 50 mg PO HSP PRN 12/25/19 Albuterol Sulfate [Proair HFA Inhalation Aerosol 8.5 gm MDI] 2 puff IH Q4HP PRN hfa.[email or web address] 12/29/19 Calcium Carbonate/Vitamin D3 [Caltrate 600-Vit D3 400 Tablet] 1 tab PO BID tablet 12/29/19 Fluticasone/Vilanterol [Breo 100-25 Mcg Ellipta 14 Dose/Dpi] 1 inh IH DAILY #1 inhaler 12/29/19 Folic Acid [Folvite 1 mg Tablet] 1 mg PO DAILY tablet 12/29/19 Insulin Glargine,Hum.rec.anlog [Lantus Insulin 100 Unit/mL Insulin Pen] 20 unit SUBCUT BID #0 12/29/19 Nicotine [Nicoderm 14 mg/24 Hr Transdermal Patch] 1 each TD DAILYP PRN patch.td24 12/29/19 History of Present Illiness History of Present Illness: VIVEK MAGUIRE is a 74 year old female with a history of COPD, diabetes mellitus, who presents to the hospital via EMS for evaluation of shortness of breath. Patient lives alone. Patient was found by her home health nurse today who noted that patient was having a very tough time breathing and checked her pulse oximeter which showed SPO2 in the 60s. She subsequently called EMS. According to ER staff, on EMS arrival her pulse ox was noted to be in the 40s. She was given breathing treatments and improved to the 70s. She was noted to woods ve work of breathing so placed on a BiPAP in route. In the ER, she was noted to be 77% on room air. She was still working to breathe and subsequently placed on BiPAP machine in the ER as well. Patient states that this often happens seasonally when the weather becomes too humid. She has chronic cough from her smoking history with only mild to minimal worsening recently. She denies any chest pain or tightness. She denies any fever or chills. Endorses mild rhinorrhea. Denies any sick contacts. Hospital Course Hospital Course: The patient was having a fairly uneventful hospital course until 2 nights ago. The patient was either sundowning or a combination of sundowning and benzodiazepine therapy that subsequently caused an altered mental state. She in fact was set to go home and we were only waiting for oxygen therapy. Because of the acute episode discharge was delayed. She in fact took almost 24 hours to let the effects of the medication wear off. If it was related to medication this would be considered a toxic encephalopathy. This morning she is alert and oriented. She is asking to go home. She even directed the means of transp ortation. I have ordered home health for post discharge follow-up only for her breathing but possibly some physical therapy for deconditioning as well. Physical Exam Vital Signs: Temp Pulse Resp BP Pulse Ox 98.3 F 89 15 151/64 H 99 12/29/19 07:37 12/29/19 07:37 12/29/19 07:37 12/29/19 07:37 12/29/19 07:37 Intake & Output 12/28/19 12/29/19 12/30/19 06:59 06:59 06:59 Intake Total 1684 Output Total 350 Balance 1684 -350 Weight 63.1 kg 61.1 kg General appearance: PRESENT: no acute distress, cooperative, well-developed Respiratory exam: PRESENT: rales - Faint rales at bases. Probable atelectasis, symmetrical, unlabored. ABSENT: rhonchi, tachypnea, wheezes Cardiovascular exam: PRESENT: RRR, +S1, +S2. ABSENT: bradycardia, diastolic murmur, irregular rhythm, systolic murmur, tachycardia GI/Abdominal exam: PRESENT: normal bowel sounds, soft. ABSENT: tenderness Extremities exam: ABSENT: pedal edema Neurological exam: PRESENT: alert, awake, oriented to person, oriented to place, oriented to situation Psychiatric exam: PRESENT: flat affect. ABSENT: agitated, anxious Results Laboratory Results: WBC 7.4 10^3/uL (4.0-10.5) 12/29/19 04:46 RBC 4.62 10^6/uL (3.72-5.28) 12/29/19 04:46 Hgb 10.4 g/dL (12.0-15.5) L 12/29/19 04:46 Hct 33.8 % (36.0-47.0) L 12/29/19 04:46 MCV 73 fl (80-97) L 12/29/19 04:46 MCH 22.4 pg (27.0-33.4) L 12/29/19 04:46 MCHC 30.6 g/dL (32.0-36.0) L 12/29/19 04:46 RDW 21.2 % (11.5-14.0) H 12/29/19 04:46 Plt Count 292 10^3/uL (150-450) 12/29/19 04:46 Lymph % (Auto) 19.5 % (13-45) 12/29/19 04:46 Wood % (Auto) 6.2 % (3-13) 12/29/19 04:46 Eos % (Auto) 0.0 % (0-6) 12/29/19 04:46 Baso % (Auto) 0.6 % (0-2) 12/29/19 04:46 Absolute Neuts (auto) 5.5 10^3/uL (1.7-8.2) 12/29/19 04:46 Absolute Lymphs (auto) 1.5 10^3/uL (0.5-4.7) 12/29/19 04:46 Absolute Monos (auto) 0.5 10^3/uL (0.1-1.4) 12/29/19 04:46 Absolute Eos (auto) 0.0 10^3/uL (0.0-0.6) 12/29/19 04:46 Absolute Basos (auto) 0.0 10^3/uL (0.0-0.2) 12/29/19 04:46 Seg Neutrophils % 73.7 % (42-78) 12/29/19 04:46 PT 14.6 SEC (11.4-15.4) 12/25/19 12:02 INR 1.12 12/25/19 12:02 D-Dimer 0.74 ug/mL (0.00-0.50) H 12/25/19 12:02 Carbonic Acid 1.76 mmol/L (1.05-1.35) H 12/28/19 13:14 HCO3/H2CO3 Ratio 16:1 12/28/19 13:14 ABG pH 7.31 (7.35-7.45) L 12/28/19 13:14 ABG pCO2 58.5 mmHg (35-45) H 12/28/19 13:14 ABG pO2 68.2 mmHg (80-100) L 12/28/19 13:14 ABG HCO3 29.1 mmol/L (20-24) H 12/28/19 13:14 ABG Total CO2 30.9 mmol/L (21-25) H 12/28/19 13:14 ABG O2 Saturation 91.7 % (94-98) L 12/28/19 13:14 ABG Base Excess 1.9 mmol/L 12/28/19 13:14 VBG pH 7.20 (7.30-7.42) L 12/25/19 12:02 VBG pCO2 73.7 mmHg (35-63) H* 12/25/19 12:02 VBG HCO3 28.2 mmol/L (20-32) 12/25/19 12:02 VBG Base Excess -1.2 mmol/L 12/25/19 12:02 FiO2 4L 12/28/19 13:14 Sodium 135.8 mmol/L (137-145) L 12/29/19 04:46 Potassium 4.6 mmol/L (3.6-5.0) 12/29/19 04:46 Chloride 100 mmol/L (98-107) 12/29/19 04:46 Carbon Dioxide 35 mmol/L (22-30) H 12/29/19 04:46 Anion Gap 1 (5-19) L 12/29/19 04:46 BUN 26 mg/dL (7-20) H 12/29/19 04:46 Creatinine 1.06 mg/dL (0.52-1.25) 12/29/19 04:46 Est GFR ( Amer) > 60 (>60) 12/29/19 04:46 Est GFR (MDRD) Non-Af 51 (>60) L 12/29/19 04:46 Glucose 85 mg/dL (75-110) 12/29/19 04:46 POC Glucose 219 mg/dL (70-110) H 12/29/19 11:33 Lactic Acid 1.2 mmol/L (0.7-2.1) 12/25/19 18:57 Calcium 8.4 mg/dL (8.4-10.2) 12/29/19 04:46 Phosphorus 4.3 mg/dL (2.5-4.5) 12/26/19 06:24 Magnesium 2.4 mg/dL (1.6-2.3) H 12/26/19 06:24 Total Bilirubin 0.4 mg/dL (0.2-1.3) 12/29/19 04:46 Direct Bilirubin 0.0 mg/dL (0.0-0.4) 12/29/19 04:46 Neonat Total Bilirubin Not Reportable 12/29/19 04:46 Neonat Direct Bilirubin Not Reportable 12/29/19 04:46 Neonat Indirect Bili Not Reportable 12/29/19 04:46 AST 26 U/L (14-36) 12/29/19 04:46 ALT 26 U/L (<35) 12/29/19 04:46 Alkaline Phosphatase 81 U/L (38-126) 12/29/19 04:46 Troponin I 0.016 ng/mL 12/25/19 12:02 Total Protein 5.8 g/dL (6.3-8.2) L 12/29/19 04:46 Albumin 3.3 g/dL (3.5-5.0) L 12/29/19 04:46 COVID-19 Source NASOPHARYNGEAL 12/25/19 17:00 COVID-19 ([facility]) NOT DETECTED 12/25/19 17:00 12/25/19 12:02 Troponin I 0.016 Impressions: Chest/Abdomen CTA 12/25/19 00:00 IMPRESSION: There is no pulmonary embolus. There is no aortic aneurysm or dissection. Minimal pleural effusions with minimal dependent atelectasis in the lower lobes. Chest X-Ray 12/25/19 12:03 IMPRESSION: NO ACUTE RADIOGRAPHIC FINDING IN THE CHEST. Chest X-Ray 12/28/19 00:00 IMPRESSION: Layering bilateral pleural effusions, not significantly changed. Plan Health Concerns: Compliance. The patient has had oxygen at home before intends to turn it in. I think compliance is a big issue and health concerns Plan of Treatment: Discharged home. She was only on Spiriva inhaler and I have added Brio Ellipta. She does have an appointment with pulmonology next week. Goals: Improved compliance. Unfortunately due to her chronic illnesses there is concern about the patient's ability to continue to live independently however she is able to make her own decisions. Home health has been ordered so that they can check on her in the post discharge window. Time Spent: Greater than 30 Minutes Stroke Is this a Stroke Patient?: No Acute Heart Failure - Is this a Heart Failure Patient?: No
[2019-12-29] MEDS ORDERED: AZITHROMYCIN 250 MG TABLET PO ONE (14:00)
[2019-12-29 14:10] VITALS: BP 127/68
== END 2019-12-29 14:33 | disposition home health service (06) | DRG 189 ==
LOC: ER 11:59 → EH 15:30 → 3N 20:15 → 5 12-28 16:18
PROVIDERS: ADMIT Internal Medicine; ATTEND Hospitalist
PROC: 5A09457 Assistance with Respiratory Ventilation, 24-96 Consecutive Hours, Continuous Positive Airway Pressure (ICD-10-PCS; principal; 2019-12-25)
DX: J96.21 Acute and chronic respiratory failure with hypoxia (principal); G92 Toxic encephalopathy; J44.1 Chronic obstructive pulmonary disease with (acute) exacerbation; N17.9 Acute kidney failure, unspecified; F05 Delirium due to known physiological condition; T42.4X5A Adverse effect of benzodiazepines, initial encounter; J96.22 Acute and chronic respiratory failure with hypercapnia; I10 Essential (primary) hypertension; E78.00 Pure hypercholesterolemia, unspecified; E78.5 Hyperlipidemia, unspecified; M19.90 Unspecified osteoarthritis, unspecified site; F17.200 Nicotine dependence, unspecified, uncomplicated; E11.65 Type 2 diabetes mellitus with hyperglycemia; Y92.230 Patient room in hospital as the place of occurrence of the external cause; E83.51 Hypocalcemia; E87.5 Hyperkalemia; Z20.828 Contact with and (suspected) exposure to other viral communicable diseases; Z66 Do not resuscitate; Z79.51 Long term (current) use of inhaled steroids; Z88.0 Allergy status to penicillin; Z88.8 Allergy status to other drugs, medicaments and biological substances; Z79.4 Long term (current) use of insulin; Z79.899 Other long term (current) drug therapy; Z87.81 Personal history of (healed) traumatic fracture; Z89.412 Acquired absence of left great toe; Z82.49 Family history of ischemic heart disease and other diseases of the circulatory system; Z72.89 Other problems related to lifestyle
CPT/HCPCS: 36415; 36600; 71045; 71275; 80048; 80053; 82803; 82962; 83605; 83735; 84100; 84484; 85025; 85379; 85610; 87040; 87635; 93005; 93010; 94640; 94660; 94799; 99285; C9803; J1644; J1815; J2060; J2405; J2920; J3490; J7030

== ENCOUNTER 2020-01-18 09:35 | Inpatient (IN) | payer MEDICARE, BC, OTHER ==
[2020-01-18] MEDS ORDERED: PROPOFOL 1,000 MG/100 ML INFUS..BTL IV PRN (09:49)
--- NOTE | 2020-01-18 10:03 | ER Document Report ---
ED General - General Chief Complaint: Unresponsive Stated Complaint: UNRESPONSIVE Time Seen by Provider: 01/18/20 09:48 Primary Care Provider: BARBARA LANTIGUA MD [Primary Care Provider] - Follow up as needed Mode of Arrival: Medic Information source: Emergency Med Personnel Cannot obtain history due to: Altered mental status TRAVEL OUTSIDE OF THE [place] IN LAST 30 DAYS: No - HPI Notes: Patient is brought in by ambulance. Ambulance personnel state that they were called out by a neighbor. They states that the patient lives alone and has a history of alcohol use. Ambulance crew states that they have had multiple runs on the patient for alcohol use as well as low blood sugar in the past. Ambulance crew states that a neighbor went to check on the patient today and found her on the floor unresponsive. Ambulance crew states that when they tested her blood sugar it was 28. They state they gave her an amp of D50 with no change of her mental status. On arrival patient is nonverbal and not respons janine in any way and therefore cannot contribute to the history. Patient symptoms appear constant. They are severe. Nothing appears to make them better or worse. There is obviously no radiation of the symptoms. - Related Data Allergies/Adverse Reactions: valsartan [From Diovan] Allergy (Unknown, Verified 11/17/19 18:14) Skin Redness Penicillins Allergy (Verified 11/17/19 18:14) exenatide [From Byetta] Adverse Reaction (Severe, Verified 11/17/19 18:14) Migraine quetiapine [From Seroquel] Adverse Reaction (Verified 11/17/19 18:14) insomnia topiramate [From Topamax] Adverse Reaction (Verified 11/17/19 18:14) vision changes Past Medical History - General Information source: Emergency Med Personnel - Social History Smoking Status: Current Every Day Smoker Frequency of alcohol use: Heavy Drug Abuse: None - None known Family History: CAD, Malignancy, Other - Past Medical History Cardiac Medical History: Reports: Hx Hypercholesterolemia, Hx Hypertension Denies: Hx Atrial Fibrillation, Hx Congestive Heart Failure, Hx Coronary Artery Disease, Hx Heart Attack, Hx Peripheral Vascular Disease, Hx Pulmonary Embolism, Hx Heart Murmur Pulmonary Medical History: Reports: Hx Asthma, Hx Bronchitis, Hx COPD Denies: Hx Pneumonia, Hx Respiratory Failure, Hx Sleep Apnea, Hx Tuberculosis Neurological Medical History: Denies: Hx Cerebrovascular Accident, Hx Seizures Endocrine Medical History: Reports: Hx Diabetes Mellitus Type 2. Denies: Hx Graves' Disease, Hx Hyperthyroidism, Hx Hypothyroidism Renal/ Medical History: Denies: Hx Kidney Stones, Hx Peritoneal Dialysis Malignancy Medical History: Denies: Hx Lung Cancer GI Medical History: Denies: Hx Gastroesophageal Reflux Disease Musculoskeletal Medical History: Reports Hx Arthritis, Denies Hx Fibromyalgia, Denies Hx Muscular Dystrophy, Denies Hx Systemic Lupus Erythematosus Psychiatric Medical History: Reports: Hx Depression Denies: Hx Bipolar Disorder, Hx Post Traumatic Stress Disorder, Hx Schizophrenia Traumatic Medical History: Reports: Hx Fractures - bilat hips, left shoulder Past Surgical History: Reports: Hx Adenoidectomy, Hx Orthopedic Surgery - Patient has had both left and right hip fracture repairs secondary to falls, Hx Tonsillectomy, Other - Cataract, left great toe amputation. Denies: Hx Append ectomy, Hx Bowel Surgery, Hx Section, Hx Cholecystectomy, Hx Coronary Artery Bypass Graft, Hx Gastric Bypass Surgery, Hx Herniorrhaphy, Hx Hysterectomy, Hx Mastectomy, Hx Tubal Ligation - Immunizations Hx Diphtheria, Pertussis, Tetanus Vaccination: Yes Hx Pneumococcal Vaccination: 05/24/11 Review of Systems - Review of Systems -: Yes ROS unobtainable due to patient's medical condition - Cannot obtain review of symptoms due to unresponsiveness Physical Exam - Vital signs Vitals: Resp Pulse Ox 20 97 01/18/20 09:36 01/18/20 09:36 Interpretation: Tachycardic, Tachypneic - General General appearance: Unresponsive In distress: Moderate - HEENT Head: Ecchymosis - There is some ecchymosis to the right lateral forehead -: right: Pupils uneven External canal: Normal Tympanic membrane: Normal Mouth/Lips: Other - There appears to be a abrasion to the right lower lip Mucous membranes: Dry Pharynx: Normal Neck: No: Lymphadenopathy, Shotty nodes - Respiratory Respiratory status: Respiratory distress Breath sounds: Rhonchi Chest palpation: Normal - Cardiovascular Rhythm: Tachycardia Heart sounds: Normal auscultation Murmur: No - Abdominal Inspection: Normal Distension: No distension Organomegaly: No organomegaly - Genitourinary External exam: Normal - Back Back: Normal. No: Deformity/step-off - Extremities General upper extremity: Normal temperature, Other - Patient has an abrasion on the left upper arm. Patient also has ecchymosis to the medial aspect the left upper arm just above the antecubital fossa. General lower extremity: Normal temperature, Other - Patient has abrasions to the lower extremities bilaterally. She has dried blood in both lower extremities from where these abrasions were bleeding.. No: Kevan's sign - Neurological Cognition: Other - Unresponsive Orientation: Disoriented to person, Disoriented to place, Disoriented to time, Disoriented to events Zac Coma Scale Eye Opening: None [place] Coma Scale Verbal: Incomprehensible - Moans Zac Coma Scale Motor: None Zac Coma Scale Total: 4 Speech: Other - No speech Sensory: Normal - Psychological Associated symptoms: Confused, Uncooperative - Skin Skin Temperature: Warm Skin Moisture: Dry Skin Color: Erythema, Ecchymosis Course - Re-evaluation Re-evalutation: 01/18/20 10:07 Patient arrived by EMS unresponsive. She was a GCS of 3-4. She had sonorous respirations. Inline stabilization was immediately applied and with a chin lift maneuver patient had significant decrease of the audibility of the sonorous respirations. IV access was obtained a another amp of D50 was given. Patient remained unresponsive. Simultaneous to all this I was preparing for intubation. Patient was then intubated on the first attempt without problem. Saturations were 100% throughout the intubation. Patient has not been placed in a c-collar as exact history of what is transpired over the last several days is unknown. Per paramedics they were told by a neighbor that the last time anybody saw the patient was Wednesday which would be approximately 4 days ago. At this time patient's heart rate is stable proximal 105 210. Her O2 saturations are stable. Her blood pressure which was initially slightly elevated is now significantly elevated after being intubated. Therefore patient be started on propofol. Further work-up is pending. Chest x-ray shows endotracheal tube to be in good position. CT scan shows no abnormal acute process. Laboratories are significant for patient being and a moderate respiratory acidosis with some CO2 retention. Chemistries have clotted at this time and are still pending. Patient's urine drug screen is negative at this time. No obvious infection anywhere. Repeat blood sugar on arrival was 70 so she was given a repeat dose of D50. At this time patient has a blood sugar of 100. Patient is still essentially unresponsive no purposeful activity. 08/27/20 11:20 - Vital Signs Vital signs: Temp Pulse Resp BP Pulse Ox 95.5 F L 17 120/77 100 01/18/20 09:57 01/18/20 11:11 01/18/20 11:11 01/18/20 11:11 - Laboratory Result Diagrams: 01/18/20 09:55 01/18/20 09:55 Laboratory results interpreted by me: 01/18/20 01/18/20 01/18/20 09:37 09:45 09:53 WBC MCV MCH MCHC RDW Seg Neuts % (Manual) Lymphocytes % (Manual) Monocytes % (Manual) Abs Neuts (Manual) VBG pH 7.25 L VBG pCO2 72.3 H* POC Glucose 64 L 170 H Urine Protein Urine Glucose (UA) Urine Ketones Urine Blood 01/18/20 01/18/20 09:55 10:00 WBC 16.9 H MCV 74 L MCH 23.0 L MCHC 31.3 L RDW 21.5 H Seg Neuts % (Manual) 88 H Lymphocytes % (Manual) 10 L Monocytes % (Manual) 1 L Abs Neuts (Manual) 14.9 H VBG pH VBG pCO2 POC Glucose Urine Protein >=500 H Urine Glucose (UA) 150 H Urine Ketones TRACE H Urine Blood MODERATE H - Diagnostic Test Radiology reviewed: Image reviewed, Reports reviewed - EKG Interpretation by Me EKG shows normal: Sinus rhythm Rate: Tachycardia - 111 Rhythm: NSR [place]/QRS: No: Right axis deviation, Left axis deviation Procedures - Intubation Orotracheal Time of Intubation: 09:45 Airway evaluation: Normal anatomy Medications: Etomidate Intubation method: Orotracheal Blade type: Rivas Blade size: 4 Equipment used: Glidescope ETT size: 7.5 ETT secured at: Lips ETT secured at (cm): 22 Breath Sounds after Intubation: Equal End tidal CO2 confirmed: Yes Ventilator settings: SIMV Post Intubation Xray: Yes Intubation Complications: No complications Critical Care Note - Critical Care Note Total time excluding time spent on procedures (mins): 60 Comments: Approximate 60 minutes of critical care time were spent on this patient who is unresponsive with a GCS of 3-4. This time was spent doing multiple reassessments. It was spent talking with mental health consultant. It was spent reviewing old records. It was spent reviewing imaging and laboratory values. Discharge - Discharge Clinical Impression: Unresponsive state, Acute respiratory failure with hypercapnia, Abrasion, left lower leg, initial encounter, Abrasion, right lower leg, initial encounter, Hypoglycemia Forehead contusion Qualifiers: Encounter type: initial encounter Qualified Code(s): S00.83XA - Contusion of other part of head, initial encounter Fall as cause of accidental injury at home as place of occurrence Qualifiers: Encounter type: initial encounter Qualified Code(s): W19.XXXA - Unspecified fall, initial encounter; Y92.009 - Unspecified place in unspecified non- institutional (private) residence as the place of occurrence of the external cause Condition: Critical Disposition: ADMITTED INPATIENT Admitting Provider: Leo (Internetworking Technician) Unit Admitted: ICU Referrals: BARBARA LANTIGUA MD [Primary Care Provider] - Follow up as needed
[2020-01-18 10:06] LABS: VENOUS BLOOD BASE EXCESS 1.6 mmol/L; VENOUS BLOOD HCO3 30.7 mmol/L (20-32); VENOUS BLOOD PH 7.25 (7.30-7.42)
[2020-01-18 10:17] LABS: VENOUS BLOOD PCO2 72.3 mmHg (35-63)
[2020-01-18 10:32] LABS: HEMATOCRIT 38.7 % (36.0-47.0); HEMOGLOBIN 12.1 g/dL (12.0-15.5); MEAN CORPUSCULAR HGB CONC 31.3 g/dL (32.0-36.0); MEAN CORPUSCULAR VOLUME 74 fl (80-97); PLATELET COUNT 397 10^3/uL (150-450); RED BLOOD COUNT 5.26 10^6/uL (3.72-5.28); RED CELL DISTRIBUTION WIDTH 21.5 % (11.5-14.0); WHITE BLOOD COUNT 16.9 10^3/uL (4.0-10.5)
[2020-01-18 10:36] LABS: INTERNATIONAL RATION (INR) 0.98; PROTHROMBIN TIME 13.2 SEC (11.4-15.4)
--- NOTE | 2020-01-18 10:45 | RADIOLOGY REPORT (SQ) ---
EXAM DESCRIPTION: CHEST SINGLE VIEW IMAGES COMPLETED DATE/TIME: 01/18/2020 10:32 am REASON FOR STUDY: placement COMPARISON: 12/28/2019 EXAM PARAMETERS: NUMBER OF VIEWS: One view. TECHNIQUE: Single frontal radiographic view of the chest acquired. RADIATION DOSE: NA LIMITATIONS: None. FINDINGS: LUNGS AND PLEURA: Improved aeration of the lungs without significant pleural effusion pers isting. Subtle bibasilar airspace opacities may be present. No pneumothorax. MEDIASTINUM AND HILAR STRUCTURES: No masses. Contour normal. HEART AND VASCULAR STRUCTURES: Heart normal in size. Normal vasculature. BONES: Posttraumatic and degenerative changes of the shoulders. HARDWARE: Endotracheal tube terminates approximately 3.5 cm cranial to the tram. A curvilinear str ucture quality in the oropharynx/cervical esophagus may represent a malpositioned enteric tube. OTHER: No other significant finding. IMPRESSION: 1. Improved pulmonary examination. No pneumothorax. 2. Endotracheal tube terminates approximately 3.5 cm cranial to the tram. He will device in the r egion of the oropharynx/cervical esophagus may represent malpositioned enteric tube. TECHNICAL DOCUMENTATION: JOB ID: [id number] 2010 [employer]- All Rights Reserved Reading location - IP/workstation name: [email or web address]
[2020-01-18 10:47] LABS: APPEARANCE,URINE SLIGHTLY-CLOUDY; BILIRUBIN,URINE NEGATIVE (NEGATIVE); COLOR,URINE YELLOW; GLUCOSE, URINE 150 mg/dL (NEGATIVE); KETONES,URINE TRACE mg/dL (NEGATIVE); PROTEIN,URINE >=500 mg/dL (NEGATIVE); URINE SPECIFIC GRAVITY 1.019; UROBILINOGEN,URINE NEGATIVE mg/dL (<2.0)
[2020-01-18 10:53] LABS: RBC,URINE NONE SEEN /HPF
[2020-01-18 10:54] LABS: AMORPHOUS SEDIMENT,UR TRACE; GRANULAR CASTS,URINE RARE /LPF; HYALINE CASTS, URINE 0-1 /LPF
[2020-01-18 10:55] LABS: ABSOLUTE LYMPHOCYTES# (MANUAL) 1.7 10^3/uL (0.5-4.7); ABSOLUTE MONOCYTES # (MANUAL) 0.2 10^3/uL (0.1-1.4); BASOPHILS % (MANUAL) 0 % (0-2); EOSINOPHILS % (MANUAL) 1 % (0-6); LYMPHOCYTES % (MANUAL) 10 % (13-45); MONOCYTES % (MANUAL) 1 % (3-13); SEGMENTED NEUTROPHILS % (MAN) 88 % (42-78); TOTAL CELLS COUNTED 100
[2020-01-18 10:56] LABS: ANISOCYTOSIS 3+; HYPOCHROMASIA SLIGHT; TOXIC GRANULATION SLIGHT
[2020-01-18 10:57] LABS: OVALOCYTES SLIGHT; PLATELET COMMENT ADEQUATE; PLATELET LARGE PRESENT; POIKILOCYTOSIS 1+
[2020-01-18 10:58] LABS: URINE AMPHETAMINES SCREEN NEGATIVE; URINE BARBITURATES SCREEN NEGATIVE; URINE BENZODIAZEPINES SCREEN NEGATIVE; URINE COCAINE SCREEN NEGATIVE; URINE MARIJUANA (THC) SCREEN NEGATIVE; URINE METHADONE SCREEN NEGATIVE; URINE PHENCYCLIDINE SCREEN NEGATIVE
--- NOTE | 2020-01-18 11:12 | RADIOLOGY REPORT (SQ) ---
EXAM DESCRIPTION: CT HEAD WITHOUT IMAGES COMPLETED DATE/TIME: 01/18/2020 11:01 am REASON FOR STUDY: ams COMPARISON: 10/13/2019 TECHNIQUE: Axial images acquired through the brain without intravenous contrast. Images reviewed wi th bone, brain and subdural windows. Additional sagittal and coronal reconstructions were generated. Images stored on PACS. All CT scanners at this facility use dose modulation, iterative reconstruction, and/or weight based d osing when appropriate to reduce radiation dose to as low as reasonably achievable (ALARA). [facility]: Dose Right [facility]: CareDose [facility]: Dose Right [facility]: Teradose 4D [facility]: [employer] RADIATION DOSE: CT Rad equipment meets quality standard of care and radiation dose reduction techniq ues were employed. CTDIvol: 53.2 mGy. DLP: 1070 mGy-cm.mGy. LIMITATIONS: None. FINDINGS: VENTRICLES: Prominent. CEREBRUM: No masses. No hemorrhage. No midline shift. Areas of low density in the white matter mos t likely due to chronic micro-vascular ischemic change. No evidence for acute infarction. CEREBELLUM: No masses. No hemorrhage. No alteration of density. No evidence for acute infarction. EXTRAAXIAL SPACES: Age-related involutional change. No fluid collections. No masses. ORBITS AND GLOBE: No intra- or extraconal masses. Normal contour of globe without masses. CALVARIUM: No fracture. PARANASAL SINUSES: No fluid or mucosal thickening. SOFT TISSUES: No mass or hematoma. OTHER: No other significant finding. IMPRESSION: CHRONIC CHANGES OF ATROPHY AND MICROVASCULAR ISCHEMIA. NO ACUTE PROCESS. EVIDENCE OF ACUTE STROKE: NO. TECHNICAL DOCUMENTATION: JOB ID: [id number] Quality ID # [id number]: Final reports with documentation of one or more dose reduction techniques (e.g., Au tomated exposure control, adjustment of the mA and/or kV according to patient size, use of iterative reconstruction technique) 2010 [employer]- All Rights Reserved Reading location - IP/workstation name: [email or web address]
--- NOTE | 2020-01-18 11:14 | RADIOLOGY REPORT (SQ) ---
EXAM DESCRIPTION: CT CERVICAL SPINE WITHOUT IMAGES COMPLETED DATE/TIME: 01/18/2020 11:01 am REASON FOR STUDY: fall COMPARISON: 06/27/2019 TECHNIQUE: Axial images acquired through the cervical spine without intravenous contrast. Images re viewed with lung, soft tissue and bone windows. Reconstructed coronal and sagittal MPR images review ed. Images stored on PACS. All CT scanners at this facility use dose modulation, iterative reconstruction, and/or weight based d osing when appropriate to reduce radiation dose to as low as reasonably achievable (ALARA). [facility]: Dose Right [facility]: CareDose [facility]: Dose Right [facility]: Teradose 4D [facility]: [place] RADIATION DOSE: CT Rad equipment meets quality standard of care and radiation dose reduction techniq ues were employed. CTDIvol: 14.3 mGy. DLP: 267 mGy-cm. mGy. LIMITATIONS: Motion artifact. FINDINGS: ALIGNMENT: Grade 1 anterolisthesis of C5 relative to C 4. MINERALIZATION: Osteopenia. VERTEBRAL BODIES: No fractures or dislocation. DISCS: Multilevel disc space narrowing with osteophytes. FACETS, LATERAL MASSES, POSTERIOR ELEMENTS: Facet arthropathy. No fractures. No dislocation. No ac zina findings. HARDWARE: None in the spine. VISUALIZED RIBS: No fractures. LUNG APICES AND SOFT TISSUES: Endotracheal tube partially visualized. OTHER: No other significant finding. IMPRESSION: Motion artifact. No fracture identified. TECHNICAL DOCUMENTATION: JOB ID: [id number] Quality ID # [id number]: Final reports with documentation of one or more dose reduction techniques (e.g., Au tomated exposure control, adjustment of the mA and/or kV according to patient size, use of iterative reconstruction technique) 2010 [employer]- All Rights Reserved Reading location - IP/workstation name: [email or web address]
[2020-01-18] MEDS ORDERED: SUCCINYLCHOLINE CHLORIDE INJ 200 MG/10 ML VIAL IV ONE (11:27)
[2020-01-18] MEDS ORDERED: ETOMIDATE INJ/PF 20 MG/10 ML SDV IV ONE (11:27)
[2020-01-18] MEDS ORDERED: DEXTROSE 5%-NORMAL SALINE 1,000 ML IV ONE (11:29)
[2020-01-18] MEDS ORDERED: THIAMINE HCL 100 MG, FOLIC ACID 1 MG in NORMAL SALINE 250 ML IV ONE (11:30)
[2020-01-18 12:16] LABS: ALBUMIN 3.5 g/dL (3.5-5.0); ALKALINE PHOSPHATASE 107 U/L (38-126); ANION GAP 7 (5-19); ASPARTATE AMINO TRANSFERASE 94 U/L (14-36); BILIRUBIN,DIRECT 0.4 mg/dL (0.0-0.4); BILIRUBIN,TOTAL 0.7 mg/dL (0.2-1.3); BLOOD UREA NITROGEN 32 mg/dL (7-20); CALCIUM 8.3 mg/dL (8.4-10.2); CARBON DIOXIDE 32 mmol/L (22-30); CHLORIDE 98 mmol/L (98-107); GLUCOSE 81 mg/dL (75-110); POTASSIUM 4.7 mmol/L (3.6-5.0); TOTAL PROTEIN 6.3 g/dL (6.3-8.2)
[2020-01-18 12:21] LABS: ALCOHOL < 10 mg/dL (NONE DETECTED)
[2020-01-18] MEDS: DEXTROSE 10%-WATER 1,000 ML IV PRN ×2 (12:36→20:07)
[2020-01-18] MEDS ORDERED: DEXTROSE 50%-WATER 25 GM/50 ML DISP.SYRIN IV ONE (13:07)
[2020-01-18] MEDS ORDERED: GLUCAGON,HUMAN RECOMB 1 MG INJ IM PRN (14:15)
[2020-01-18] MEDS ORDERED: DEXTROSE 40% GEL 15 GM TUBE PO PRN ×2 (14:15)
[2020-01-18] MEDS ORDERED: DEXTROSE 50%-WATER 25 GM/50 ML DISP.SYRIN IV PRN ×2 (14:15)
--- NOTE | 2020-01-18 15:08 | RADIOLOGY REPORT (SQ) ---
EXAM DESCRIPTION: KUB/ABDOMEN (SINGLE VIEW) IMAGES COMPLETED DATE/TIME: 01/18/2020 2:50 pm REASON FOR STUDY: NG tube Placement COMPARISON: None. NUMBER OF VIEWS: One view. TECHNIQUE: Supine radiographic image of the abdomen acquired. LIMITATIONS: None. FINDINGS: BOWEL GAS PATTERN: Normal bowel gas pattern. No dilated loops. CALCIFICATIONS: No suspicious calcifications. SOFT TISSUES: No gross mass or suggestion of organomegaly. HARDWARE: NG tube extends to the stomach to the greater curvature. BONES: No acute fracture. No worrisome bone lesions. OTHER: No other significant finding. IMPRESSION: NG tube touches the greater curvature. TECHNICAL DOCUMENTATION: JOB ID: [id number] 2010 [employer]- All Rights Reserved Reading location - IP/workstation name: [email or web address]
[2020-01-18] MEDS ORDERED: RINGERS SOLUTION,LACTATED 1,000 ML IV ONE (15:32)
[2020-01-18] MEDS ORDERED: ACETAMINOPHEN 325 MG TABLET PO PRN (15:36)
[2020-01-18] MEDS ORDERED: PHARMACY COMMUNICATION ORDER MC NR (15:45)
[2020-01-18] MEDS: PROPOFOL 1,000 MG/100 ML INFUS..BTL IV PRN ×2 (16:28→21:00)
[2020-01-18] MEDS: RINGERS SOLUTION,LACTATED 1,000 ML IV PRN (16:29)
[2020-01-18] MEDS ORDERED: DOCUSATE SODIUM 100 MG CAPSULE PO SCH (18:00)
[2020-01-18] MEDS ORDERED: SUCCINYLCHOLINE CHLORIDE INJ 200 MG/10 ML VIAL ONE (20:00)
[2020-01-18] MEDS: FAMOTIDINE INJ/PF 20 MG/2 ML SDV IV SCH (22:55)
[2020-01-18] MEDS: HEPARIN SOD (PORCINE) 5,000 UNIT/ML 1 ML VIAL SUBCUT SCH (22:55)
[2020-01-19] MEDS: PROPOFOL 1,000 MG/100 ML INFUS..BTL IV PRN ×2 (02:57→13:22)
[2020-01-19] MEDS: HEPARIN SOD (PORCINE) 5,000 UNIT/ML 1 ML VIAL SUBCUT SCH ×3 (05:03→22:02)
[2020-01-19] MEDS: DEXTROSE 10%-WATER 1,000 ML IV PRN ×2 (05:03→13:25)
[2020-01-19] MEDS ORDERED: ACETAMINOPHEN 325 MG TABLET NG PRN (09:00)
[2020-01-19] MEDS: DOCUSATE SODIUM 100 MG/10 ML UDC NG SCH ×2 (10:11→18:44)
[2020-01-19] MEDS: FAMOTIDINE INJ/PF 20 MG/2 ML SDV IV SCH ×2 (10:12→22:02)
--- NOTE | 2020-01-19 10:14 | RADIOLOGY REPORT (SQ) ---
EXAM DESCRIPTION: CHEST SINGLE VIEW IMAGES COMPLETED DATE/TIME: 01/19/2020 9:52 am REASON FOR STUDY: RESPIRATORY FAILURE COMPARISON: AP view of the chest from 01/18/2020. EXAM PARAMETERS: NUMBER OF VIEWS: One view. TECHNIQUE: An AP view of the chest was obtained. RADIATION DOSE: NA LIMITATIONS: None. FINDINGS: LUNGS AND PLEURA: No consolidation, pleural effusion or pneumothorax. MEDIASTINUM AND HILAR STRUCTURES: Stable mediastinal and hilar contours. HEART AND VASCULAR STRUCTURES: Stable cardiac silhouette. BONES: Unchanged chronic deformities of the proximal humeri. HARDWARE: The tip of the endotracheal tube projects 3.9 cm above the tram. The tip of the enteric tube projects past the gastroesophageal junction and outside the field of view of the radiograph. OTHER: No other finding. IMPRESSION: Tubes and lines as above. Otherwise unchanged radiographic appearance of the chest. TECHNICAL DOCUMENTATION: JOB ID: [id number] 2010 [employer]- All Rights Reserved Reading location - IP/workstation name: [email or web address]
--- NOTE | 2020-01-19 11:14 | EKG REPORT ---
SEVERITY:- ABNORMAL ECG - SINUS TACHYCARDIA BORDERLINE RIGHT AXIS DEVIATION CONSIDER LEFT VENTRICULAR HYPERTROPHY : Confirmed by: Barbi Zurita MD 19-Jan-2020 11:13:26
[2020-01-19 11:45] LABS: ABSOLUTE BASOPHILS # (AUTO) 0.1 10^3/uL (0.0-0.2); ABSOLUTE LYMPHOCYTES (AUTO) 1.8 10^3/uL (0.5-4.7); ABSOLUTE MONOCYTES (AUTO) 0.7 10^3/uL (0.1-1.4); ABSOLUTE NEUT (AUTO) 10.5 10^3/uL (1.7-8.2); BASOPHILS % (AUTO) 0.6 % (0-2); EOSINOPHILS % (AUTO) 0.1 % (0-6); HEMATOCRIT 33.9 % (36.0-47.0); HEMOGLOBIN 10.4 g/dL (12.0-15.5); MEAN CORPUSCULAR HEMOGLOBIN 22.5 pg (27.0-33.4); MEAN CORPUSCULAR HGB CONC 30.6 g/dL (32.0-36.0); MEAN CORPUSCULAR VOLUME 73 fl (80-97); MONOCYTES % (AUTO) 5.7 % (3-13); PLATELET COUNT 333 10^3/uL (150-450); RED BLOOD COUNT 4.62 10^6/uL (3.72-5.28); RED CELL DISTRIBUTION WIDTH 21.1 % (11.5-14.0); SEGMENTED NEUTROPHILS % (AUTO) 79.6 % (42-78); TOTAL CELLS COUNTED % (AUTO) 100 %; WHITE BLOOD COUNT 13.2 10^3/uL (4.0-10.5)
[2020-01-19 12:04] LABS: ANION GAP 5 (5-19); BLOOD UREA NITROGEN 29 mg/dL (7-20); CALCIUM 7.6 mg/dL (8.4-10.2); CARBON DIOXIDE 27 mmol/L (22-30); CHLORIDE 97 mmol/L (98-107); GLUCOSE 157 mg/dL (75-110)
[2020-01-19 12:06] LABS: POTASSIUM 3.7 mmol/L (3.6-5.0)
[2020-01-19] MEDS: RINGERS SOLUTION,LACTATED 1,000 ML IV PRN (13:25)
--- NOTE | 2020-01-19 14:37 | CRITICAL CARE ADMISSION REPORT ---
HPI Date:: 01/18/20 Time:: 14:30 Reason for ICU Reason:: Intubation.Altered mental status. Admission Date/Time & PCP: Admission Date/Time: 01/18/20 12:01 Primary Care Provider: BARBARA LANTIGUA MD Plan Summary: Patient was brought pot hospital after a neighbor found her passed out in her home. The last time the patient was seen alert was this past Wednesday ( 4 days ago).The [patient reportedly has a long hsitory of ETOHG abuse. She carries the diagnosis of depressionas well. She required intubation on presentation for a GCS of 3.A cervical collar was placed because of unclear circumstances where she was found on the ground. The patient had a CT head showing microvascular disease. Her Ct cervical spine showed no gross fracture. CXR shows no obvious pathology her initial temp was about 95degrees.The patient has multiple abraisions on her shins and knees and theareas are reddened. She keeps both legs flexed and contracted at the hips and knees. Her right pupil is 3mmand left pupil is 2mm . Both are reactive to ligh.tShe withdraws arma and legs to pain Her initial blood sugar was quite low about 20. Repeat glucometers have been low as well which has led to many amps of dextrose 50 and a D10W drip ultimately. Her urine tox screen was negative. Her urine was 1-2+ positive for glucose and 1 + ketones, no gross evidence of infx. Lactate was only1.6 and her creatinine not far from baseline at 1.24. her AG is only about 7. Impression:: Patient presents with altered mental status, history of alcoholism and low blood sugars. There does not appear to be an overt infx presently. Her drug screen was apparently negative as well. Major trauma to the head and neck appears unlikely. Her VBG does suggests that the patient had acute hypercarbic resp. failure. Her elevated serum bicarb attests to the fact that it is at least in part subacute in nature. Therefore , we are unclear as to the inciting event here. Plan:: 1) Monitor blood sugars regularly and continue dextrose 10 and prn dextrose 50. Apparently according to the ED note theparamedics have been called to this patient's home previously for hypoglycemia. 2) Check TFTs, ammonia level, drug screen already done 3) IV hydration:: It does appear that her creatinine has been all over the map between 1.0 and 1.9 in the past 4 months 4) Monitor for signs of infx. 5) the patient is intubated and will remain intubated and sedated for the near future. Past Medical History Cardiac Medical History: Reports: Hyperlipidema, Hypertension Denies: Atrial Fibrillation, Congestive Heart Failure, Coronary Artery Disease, Myocardial Infarction, Peripheral Vascular Disease, Pulmonary Embolism, Heart Murmur Pulmonary Medical History: Reports: Asthma, Bronchitis, Chronic Obstructive Pulmonary Disease (COPD) Denies: Pneumonia, Respiratory Failure, Sleep Apnea, Tuberculosis Neurological Medical History: Denies: Seizures Endocrine Medical History: Reports: Diabetes Mellitus Type 2 Denies: Hyperthyroidism, Hypothyroidism Malignancy Medical History: Denies: Lung Cancer GI Medical History: Denies: Gastroesophageal Reflux Disease Musculoskeltal Medical History: Reports: Arthritis Denies: Fibromyalgia Psychiatric Medical History: Reports: Depression Denies: Bipolar Disorder, Post Traumatic Stress Disorder Hematology: Denies: Anemia, Bleeding Tendencies Past Surgical History Past Surgical History: Reports: Adenoidectomy, Orthopedic Surgery - Patient has had both left and right hip fracture repairs secondary to falls, Tonsillectomy, Other - Cataract, left great toe amputation Denies: Amputation, Appendectomy, Section, Cholecystectomy, Coronary Artery Bypass Graft, Gastric Bypass Surgery, Herniorrhaphy, Hysterectomy, Mas tectomy, Tubal Ligation Social/Family History - Social History Smoking Status: Current Every Day Smoker Frequency of Alcohol Use: None Hx Recreational Drug Use: No Drugs: None Hx Prescription Drug Abuse: No - Medication/Allergies Home Medications: Albuterol Sulfate [Proair HFA Inhalation Aerosol 8.5 gm MDI] 1 puff IH Q4HP PRN 10/13/19 Folic Acid [Folvite 1 mg Tablet] 1 mg PO DAILY 10/13/19 Diltiazem HCl [Diltiazem 24Hr ER (Cd)] 240 mg PO DAILY 12/25/19 Hydralazine HCl [Apresoline 50 mg Tablet] 50 mg PO BID 12/25/19 Pregabalin 100 mg PO DAILY 12/25/19 Tiotropium [place] [Spiriva Handihaler 5 Cap/Kit (18 Mcg/Cap)] 1 cap IH DAILY 12/25/19 Trazodone HCl [Desyrel 50 mg Tablet] 50 mg PO HSP PRN 12/25/19 Fluticasone/Vilanterol [Breo 100-25 Mcg Ellipta 14 Dose/Dpi] 1 inh IH DAILY #1 inhaler 12/29/19 Insulin Glargine,Hum.rec.anlog [Lantus Insulin 100 Unit/mL Insulin Pen] 40 unit SUBCUT BID 01/18/20 Metformin HCl [Metformin HCl ER] 1,000 mg PO BID 01/18/20 Allergies/Adverse Reactions: valsartan [From Diovan] Allergy (Unknown, Verified 01/18/20 12:03) Skin Redness Penicillins Allergy (Verified 01/18/20 12:03) exenatide [From Byetta] Adverse Reaction (Severe, Verified 01/18/20 12:03) Migraine quetiapine [From Seroquel] Adverse Reaction (Verified 01/18/20 12:03) insomnia topiramate [From Topamax] Adverse Reaction (Verified 01/18/20 12:03) vision changes Physical Exam Vital Signs: Temp Pulse Resp BP Pulse Ox 100.6 F H 111 H 20 164/66 H 100 01/18/20 14:05 01/18/20 14:05 01/18/20 14:05 01/18/20 14:05 01/18/20 14:05 Intake & Output 01/17/20 01/18/20 01/19/20 06:59 06:59 06:59 Intake Total 357.2 Balance 357.2 Weight 57 kg Weight/Height Weight 57 kg Height 5 ft 6 in General appearance: PRESENT: disheveled, mild distress, thin Head exam: PRESENT: atraumatic, normocephalic Eye exam: PRESENT: EOMI, PERRLA. ABSENT: scleral icterus Ear exam: PRESENT: normal external ear exam Mouth exam: PRESENT: dry mucosa Neck exam: ABSENT: lymphadenopathy, meningismus, tenderness Respiratory exam: PRESENT: clear to auscultation lauren, unlabored Cardiovascular exam: PRESENT: +S1, +S2 GI/Abdominal exam: PRESENT: soft. ABSENT: tenderness Rectal exam: ABSENT: deferred Gentrourinary exam: ABSENT: ecchymosis, lesions Extremities exam: PRESENT: full ROM, other - The patient is missing her left hallux and part of her 2nd left toe as well.. ABSENT: calf tenderness, clubbing Neurological exam: PRESENT: altered Psychiatric exam: PRESENT: agitated Skin exam: PRESENT: other - As noted thepatient's shins are red and abraded over an extensive area. Laboratory/Radiographs Laboratory Results: 01/18/20 09:55 01/18/20 11:44 01/18/20 01/18/20 01/18/20 09:45 09:55 09:55 WBC 16.9 H RBC 5.26 Hgb 12.1 Hct 38.7 MCV 74 L MCH 23.0 L MCHC 31.3 L RDW 21.5 H Plt Count 397 Seg Neutrophils % Not Reportable VBG pH 7.25 L VBG pCO2 72.3 H* VBG HCO3 30.7 VBG Base Excess 1.6 Sodium Cancelled Potassium Cancelled Chloride Cancelled Carbon Dioxide Cancelled Anion Gap Cancelled BUN Cancelled Creatinine Cancelled Est GFR ( Amer) Cancelled Est GFR (Non-Af Amer) Cancelled Glucose Cancelled Lactic Acid Calcium Cancelled Total Bilirubin Cancelled AST Cancelled Alkaline Phosphatase Cancelled Total Protein Cancelled Albumin Cancelled Urine Color Urine Appearance Urine pH Ur Specific [place] Urine Protein Urine Glucose (UA) Urine Ketones Urine Blood Ur Squamous Epith Cells 01/18/20 01/18/20 01/18/20 09:55 10:00 11:44 WBC RBC Hgb Hct MCV MCH MCHC RDW Plt Count Seg Neutrophils % VBG pH VBG pCO2 VBG HCO3 VBG Base Excess Sodium Potassium Chloride Carbon Dioxide Anion Gap BUN Creatinine Est GFR ( Amer) Est GFR (Non-Af Amer) Glucose Lactic Acid 1.4 1.6 Calcium Total Bilirubin AST Alkaline Phosphatase Total Protein Albumin Urine Color YELLOW Urine Appearance SLIGHTLY-CLOUDY Urine pH 5.0 Ur Specific [place] 1.019 Urine Protein >=500 H Urine Glucose (UA) 150 H Urine Ketones TRACE H Urine Blood MODERATE H Ur Squamous Epith Cells MANY 01/18/20 11:44 WBC RBC Hgb Hct MCV MCH MCHC RDW Plt Count Seg Neutrophils % VBG pH VBG pCO2 VBG HCO3 VBG Base Excess Sodium 137.2 Potassium 4.7 Chloride 98 Carbon Dioxide 32 H Anion Gap 7 BUN 32 H Creatinine 1.24 Est GFR ( Amer) 51 L Est GFR (Non-Af Amer) Glucose 81 Lactic Acid Calcium 8.3 L Total Bilirubin 0.7 AST 94 H Alkaline Phosphatase 107 Total Protein 6.3 Albumin 3.5 Urine Color Urine Appearance Urine pH Ur Specific [place] Urine Protein Urine Glucose (UA) Urine Ketones Urine Blood Ur Squamous Epith Cells 01/18/20 01/18/20 09:55 11:44 Troponin I Cancelled 0.022 Impressions: Chest X-Ray 01/18/20 00:00 IMPRESSION: 1. Improved pulmonary examination. No pneumothorax. 2. Endotracheal tube terminates approximately 3.5 cm cranial to the tram. He will device in the region of the oropharynx/cervical esophagus may represent malpositioned enteric tube. Head CT 01/18/20 09:50 IMPRESSION: CHRONIC CHANGES OF ATROPHY AND MICROVASCULAR ISCHEMIA. NO ACUTE PROCESS. EVIDENCE OF ACUTE STROKE: NO. Cervical Spine CT 01/18/20 09:51 IMPRESSION: Motion artifact. No fracture identified. Critical Time Critical Time (minutes): 45 -: The care of a critically ill patient is dynamic. This note represents a static moment in the admission process. Orders and treatments may be given simultaneously and urgently, and time is not apparel trimmings sales representative of the treatment process. This patient requires Critical Care secondary to life threatening organ or limb dysfunction. Without Critical Care services, the patient is at risk for increased mortality and morbidity.
[2020-01-19 15:44] LABS: ABSOLUTE BASOPHILS # (AUTO) 0.1 10^3/uL (0.0-0.2); ABSOLUTE LYMPHOCYTES (AUTO) 1.4 10^3/uL (0.5-4.7); ABSOLUTE MONOCYTES (AUTO) 0.7 10^3/uL (0.1-1.4); ABSOLUTE NEUT (AUTO) 9.7 10^3/uL (1.7-8.2); BASOPHILS % (AUTO) 0.9 % (0-2); HEMATOCRIT 31.4 % (36.0-47.0); LYMPHOCYTES % (AUTO) 11.5 % (13-45); MEAN CORPUSCULAR HGB CONC 31.7 g/dL (32.0-36.0); MEAN CORPUSCULAR VOLUME 73 fl (80-97); MONOCYTES % (AUTO) 5.5 % (3-13); PLATELET COUNT 336 10^3/uL (150-450); RED BLOOD COUNT 4.33 10^6/uL (3.72-5.28); SEGMENTED NEUTROPHILS % (AUTO) 82.1 % (42-78); TOTAL CELLS COUNTED % (AUTO) 100 %; WHITE BLOOD COUNT 11.9 10^3/uL (4.0-10.5)
[2020-01-19 16:04] LABS: ANION GAP 6 (5-19); BLOOD UREA NITROGEN 29 mg/dL (7-20); CALCIUM 7.5 mg/dL (8.4-10.2); CARBON DIOXIDE 25 mmol/L (22-30); CHLORIDE 97 mmol/L (98-107); GLUCOSE 161 mg/dL (75-110); POTASSIUM 3.9 mmol/L (3.6-5.0)
[2020-01-20 04:42] LABS: ABSOLUTE BASOPHILS # (AUTO) 0.1 10^3/uL (0.0-0.2); BASOPHILS % (AUTO) 0.7 % (0-2); MEAN CORPUSCULAR HEMOGLOBIN 22.7 pg (27.0-33.4); TOTAL CELLS COUNTED % (AUTO) 100 %
[2020-01-20 04:48] LABS: ABSOLUTE LYMPHOCYTES (AUTO) 1.6 10^3/uL (0.5-4.7); ABSOLUTE MONOCYTES (AUTO) 0.7 10^3/uL (0.1-1.4); ABSOLUTE NEUT (AUTO) 9.7 10^3/uL (1.7-8.2); HEMATOCRIT 34.7 % (36.0-47.0); HEMOGLOBIN 10.8 g/dL (12.0-15.5); MEAN CORPUSCULAR VOLUME 73 fl (80-97); MONOCYTES % (AUTO) 6.1 % (3-13); PLATELET COUNT 325 10^3/uL (150-450); RED BLOOD COUNT 4.75 10^6/uL (3.72-5.28); RED CELL DISTRIBUTION WIDTH 20.4 % (11.5-14.0); SEGMENTED NEUTROPHILS % (AUTO) 80.2 % (42-78); WHITE BLOOD COUNT 12.1 10^3/uL (4.0-10.5)
[2020-01-20 04:57] LABS: ANION GAP 7 (5-19); BLOOD UREA NITROGEN 26 mg/dL (7-20); CARBON DIOXIDE 26 mmol/L (22-30); CHLORIDE 99 mmol/L (98-107); GLUCOSE 177 mg/dL (75-110); POTASSIUM 3.9 mmol/L (3.6-5.0)
[2020-01-20] MEDS: HEPARIN SOD (PORCINE) 5,000 UNIT/ML 1 ML VIAL SUBCUT SCH ×3 (06:22→22:13)
--- NOTE | 2020-01-20 08:00 | RADIOLOGY REPORT (SQ) ---
CLINICAL HISTORY: Unresponsive, r/o CVA COMPARISON: January 18, 2020. TECHNIQUE: CT HEAD WITHOUT IV CONTRAST on 01/20/2020 12:00 AM CDT This exam was performed according to our departmental dose-optimization program, which includes automated exposure control, adjustment of the mA and/or kV according to patient size and/or use of iterative reconstruction technique. FINDINGS: There is no acute hemorrhage, mass effect or midline shift. Dan-white differentiation is preserved. There is no hydrocephalus. There is no significant volume loss for age. The calvarium is intact. Orbits and globes are unremarkable. The paranasal sinuses are clear. There is fluid in the inferior left mastoid air cells. IMPRESSION: No acute intracranial findings.
--- NOTE | 2020-01-20 08:25 | RADIOLOGY REPORT (SQ) ---
EXAM DESCRIPTION: CHEST SINGLE VIEW IMAGES COMPLETED DATE/TIME: 01/20/2020 6:18 am REASON FOR STUDY: RESPIRATORY FAILURE COMPARISON: 01/18/2020, 01/19/2020 chest films EXAM PARAMETERS: NUMBER OF VIEWS: One view. TECHNIQUE: Single frontal radiographic view of the chest acquired. RADIATION DOSE: NA LIMITATIONS: None. FINDINGS: LUNGS AND PLEURA: No opacities, masses or pneumothorax. No pleural effusion. MEDIASTINUM AND HILAR STRUCTURES: Prominent central pulmonary arteries, question pulmonary hypertensi on. HEART AND VASCULAR STRUCTURES: Heart normal in size. Normal vasculature. BONES: Osteoporotic. Old bilateral humeral head fractures HARDWARE: Endotracheal tube tip 5 cm above the tram. Nasogastric tube tip and side-port in stomach OTHER: No other significant finding. IMPRESSION: No acute infiltrates. Endotracheal tube, nasogastric tube good positioning. TECHNICAL DOCUMENTATION: JOB ID: [id number] 2010 [employer]- All Rights Reserved Reading location - IP/workstation name: [email or web address]
[2020-01-20] MEDS: RINGERS SOLUTION,LACTATED 1,000 ML IV PRN (09:30)
[2020-01-20] MEDS: DOCUSATE SODIUM 100 MG/10 ML UDC NG SCH ×2 (09:30→17:32)
[2020-01-20] MEDS: FAMOTIDINE INJ/PF 20 MG/2 ML SDV IV SCH ×2 (09:30→22:13)
[2020-01-20 09:34] LABS: ARTERIAL BLOOD BASE EXCESS 4.2 mmol/L; ARTERIAL BLOOD H2CO3 1.35 mmol/L (1.05-1.35); ARTERIAL BLOOD HCO3 29.1 mmol/L (20-24); ARTERIAL BLOOD PCO2 44.7 mmHg (35-45); ARTERIAL BLOOD PH 7.43 (7.35-7.45); ARTERIAL BLOOD PO2 79.4 mmHg (80-100); ARTERIAL BLOOD TOTAL CO2 30.4 mmol/L (21-25)
[2020-01-20 09:36] LABS: ARTERIAL BLOOD FIO2 35%
[2020-01-20] MEDS ORDERED: LABETALOL HCL INJ 20 MG/4 ML DISP.SYRIN IV ONE (10:08)
[2020-01-20] MEDS: LABETALOL HCL INJ 20 MG/4 ML DISP.SYRIN IV PRN (10:10)
--- NOTE | 2020-01-20 12:00 | PDOC CRITICAL CARE PROG REPORT ---
General Date:: 01/20/20 ICU Day:: 3 Ventilator Day:: 3 Hospital Day:: 3 Resuscitation Status: Full Code Events in the past 12 to 24 Hours:: The patient presented after being found at home unconscious on the ground. Unclear what prompted this evewnt. However, the patient had what appeared to be a respiratory acidosis. Had apparently been seen her last known normal about 4 days oreviously. No clear evidence f aseptic syndrome or obvious source. The atient is not nor has she been hypotensive. Her CXR does not show a clear pneumonia. 01/19 The patient is oiff all sedation. She has not woken up sufficiently since sed ation was turned down. She had an upgoing gaze this AM. Shroberto was snent for a non contrast Ct scan of the brain whch appears to be unremarakable. Her blood sugar have beeen normal to elevated. She is hemodynamically stable. CXR has been clear. Reason for ICU Addmission:: Intubation.Altered mental status. Physical Exam Vital Signs: Temp Pulse Resp BP Pulse Ox 99.5 F 93 25 H 189/93 H 97 01/20/20 10:02 01/20/20 10:00 01/20/20 10:01 01/20/20 10:02 01/20/20 10:02 Intake & Output 01/19/20 01/20/20 01/21/20 06:59 06:59 06:59 Intake Total 610.2 1144 1000 Output Total 310 2230 50 Balance 300.2 -1086 950 Weight 59.4 kg 60.1 kg Weight/Height Weight 60.1 kg Height 5 ft 6 in General appearance: PRESENT: no acute distress Head exam: PRESENT: atraumatic, normocephalic Eye exam: PRESENT: EOMI, PERRLA. ABSENT: nystagmus, scleral icterus Ear exam: PRESENT: normal external ear exam. ABSENT: bleeding Neck exam: ABSENT: full ROM, JVD, meningismus, tenderness, thyromegaly Respiratory exam: PRESENT: clear to auscultation lauren, unlabored. ABSENT: chest wall tenderness Cardiovascular exam: PRESENT: RRR Pulses: PRESENT: normal carotid pulses, normal femoral pulses GI/Abdominal exam: PRESENT: normal bowel sounds, soft. ABSENT: tenderness Rectal exam: PRESENT: normal inspection. ABSENT: deferred, black stool Gentrourinary exam: ABSENT: ecchymosis, erythema Extremities exam: ABSENT: calf tenderness, clubbing, pedal edema - Missing left hallux and part of 2nd left toe. Neurological exam: PRESENT: other - The patient remains heavilysedated. She is not mving. No opening eyes ar sqeeeking one'd hsand Laboratory/Radiographs Laboratory Results: 01/20/20 04:06 01/20/20 04:06 01/19/20 01/19/20 01/19/20 11:34 11:34 15:20 WBC 13.2 H RBC 4.62 Hgb 10.4 L Hct 33.9 L MCV 73 L MCH 22.5 L MCHC 30.6 L RDW 21.1 H Plt Count 333 Seg Neutrophils % 79.6 H Carbonic Acid HCO3/H2CO3 Ratio ABG pH ABG pCO2 ABG pO2 ABG HCO3 ABG O2 Saturation ABG Base Excess FiO2 Sodium 129.2 L 128.0 L Potassium 3.7 D 3.9 Chloride 97 L 97 L Carbon Dioxide 27 25 Anion Gap 5 6 BUN 29 H 29 H Creatinine 1.48 H 1.31 H Est GFR ( Amer) 42 L 48 L Glucose 157 H 161 H Calcium 7.6 L 7.5 L 01/19/20 01/20/20 01/20/20 15:20 04:06 04:06 WBC 11.9 H 12.1 H RBC 4.33 4.75 Hgb 10.0 L 10.8 L Hct 31.4 L 34.7 L MCV 73 L 73 L MCH 23.0 L 22.7 L MCHC 31.7 L 31.0 L RDW 21.0 H 20.4 H Plt Count 336 325 Seg Neutrophils % 82.1 H 80.2 H Carbonic Acid HCO3/H2CO3 Ratio ABG pH ABG pCO2 ABG pO2 ABG HCO3 ABG O2 Saturation ABG Base Excess FiO2 Sodium 132.1 L Potassium 3.9 Chloride 99 Carbon Dioxide 26 Anion Gap 7 BUN 26 H Creatinine 1.33 H Est GFR ( Amer) 47 L Glucose 177 H Calcium 8.0 L 01/20/20 09:15 WBC RBC Hgb Hct MCV MCH MCHC RDW Plt Count Seg Neutrophils % Carbonic Acid 1.35 HCO3/H2CO3 Ratio 21:1 ABG pH 7.43 ABG pCO2 44.7 ABG pO2 79.4 L ABG HCO3 29.1 H ABG O2 Saturation 96.0 ABG Base Excess 4.2 FiO2 35% Sodium Potassium Chloride Carbon Dioxide Anion Gap BUN Creatinine Est GFR ( Amer) Glucose Calcium 01/18/20 01/18/20 01/18/20 09:55 11:44 15:37 Creatine Kinase 1512 H Troponin I Cancelled 0.022 01/19/20 03:51 Creatine Kinase 1108 H Troponin I Impressions: KUB X-Ray 01/18/20 00:00 IMPRESSION: NG tube touches the greater curvature. Cervical Spine CT 01/18/20 09:51 IMPRESSION: Motion artifact. No fracture identified. Head CT 01/20/20 00:00 IMPRESSION: No acute intracranial findings. Chest X-Ray 01/20/20 06:00 IMPRESSION: No acute infiltrates. Endotracheal tube, nasogastric tube good positioning. Assessment and Plan - Diagnosis (1) Abrasion, left lower leg, initial encounter Is this a current diagnosis for this admission?: Yes Plan: Montor status.these appear ba be suerficial injuroes (2) Abrasion, right lower leg, initial encounter Is this a current diagnosis for this admission?: Yes Plan: It appears that thepatient was lying on her shins which a re both red and abraded, (3) Acute respiratory failure with hypercapnia Is this a current diagnosis for this admission?: Yes Plan: I am hoping once thepatiet appears a bit more laert id can wean her from the ventilator. She does not have alot of secretionsd and is on a reelatively lw FI02. (4) Hypoglycemia Is this a current diagnosis for this admission?: Yes Plan: Her hypoglycemia has resolved.the patient is presently off dextrose with blood sugar coinsistently >100. (5) Unresponsive state Is this a current diagnosis for this admission?: Yes Plan: The patient is still unrepsponsie. CT head was fairly unremarkable. (6) AI (acute kidney injury) Is this a current diagnosis for this admission?: Yes Plan: May have had a small amount of AI related to her fall and mild rhabdomyolysis. Critical Time Critical Time (minutes): 25 Level of Care: ICU -: 1. The care of a critical patient is a dynamic process. This note is a food service representative synopsis but static in nature. The timeframe for treatments given in order is not necessarily the actual time these treatments may have been done. 2. This patient requires critical care secondary to ongoing requirements for therapy not offered or safe outside the critical care environment. Transfer to a lower level of care will result in altered life or limb morbidity and mortality. 3. Multidisciplinary rounds completed. 4. ABCDE bundle addressed.
[2020-01-20] MEDS: NICARDIPINE HCL RTU, ISO-OS 20 MG/200 ML RTUINJ IV PRN ×4 (13:53→22:58)
[2020-01-20] MEDS ORDERED: MIDAZOLAM 2 MG/2 ML INJ ONE (17:22)
--- NOTE | 2020-01-20 18:05 | RADIOLOGY REPORT (SQ) ---
EXAM DESCRIPTION: CHEST SINGLE VIEW IMAGES COMPLETED DATE/TIME: 01/20/2020 5:49 pm REASON FOR STUDY: ET Tube Placement COMPARISON: 01/20/2020 0614 hours EXAM PARAMETERS: NUMBER OF VIEWS: One view TECHNIQUE: Single frontal radiograph of the chest. RADIATION DOSE: N/A LIMITATIONS: None. FINDINGS: TEMPORARY SUPPORT DEVICES:ETT in expected location. NG tube courses below the lawrence-diaphr agm in to the stomach. LUNGS AND PLEURA: No opacities. No masses. No effusions. No pneumothorax. MEDIASTINUM AND HILAR STRUCTURES: No masses. Contour normal. HEART AND VASCULAR STRUCTURES: Heart size normal. Normal vascularity. Aorta normal for age BONES: No acute findings. OTHER: No other significant finding. IMPRESSION: NO ACUTE RADIOGRAPHIC FINDING IN THE CHEST. SUPPORT DEVICE(S) IN EXPECTED LOCATIONS. TECHNICAL DOCUMENTATION: JOB ID: [id number] 2010 [employer]- All Rights Reserved Reading location - IP/workstation name: [email or web address]
--- NOTE | 2020-01-20 18:16 | Operative Report ---
Bedside Procedure - History of Present Illness Indication for Procedure: leaky Et cuff Date: 01/20/20 Provider: BRE KNIGHT - Intubation Orotracheal Airway evaluation: Normal anatomy Mallampati Classification: Class 3 - This was a tube exchange procedure not employing the glidescope ( although available at the bedside) nor a laryngoscope.the patient was laid supine. The bugie was inserted and the original tube was withdrwan. Anew ET tube was inserted with ease and placed at 23 cccm at the lip and secured. Bilaterla BS were ascultated and there were no change invitlas or 02 saturation. Medications: Versed Intubation method: Orotracheal ETT size: 7.5 ETT secured at: Teeth ETT secured at (cm): 23 Intubation Complications: No complications
[2020-01-20] MEDS ORDERED: MIDAZOLAM 2 MG/2 ML INJ IV ONE (18:45)
[2020-01-21] MEDS: RINGERS SOLUTION,LACTATED 1,000 ML IV PRN ×2 (00:46→04:46)
[2020-01-21] MEDS: HEPARIN SOD (PORCINE) 5,000 UNIT/ML 1 ML VIAL SUBCUT SCH ×3 (05:53→22:18)
[2020-01-21] MEDS: NICARDIPINE HCL RTU, ISO-OS 20 MG/200 ML RTUINJ IV PRN ×6 (05:54→21:41)
[2020-01-21 06:42] LABS: ABSOLUTE LYMPHOCYTES (AUTO) 1.2 10^3/uL (0.5-4.7); ABSOLUTE MONOCYTES (AUTO) 0.6 10^3/uL (0.1-1.4); ABSOLUTE NEUT (AUTO) 12.2 10^3/uL (1.7-8.2); BASOPHILS % (AUTO) 0.3 % (0-2); EOSINOPHILS % (AUTO) 0.1 % (0-6); HEMATOCRIT 33.9 % (36.0-47.0); HEMOGLOBIN 10.4 g/dL (12.0-15.5); LYMPHOCYTES % (AUTO) 8.7 % (13-45); MEAN CORPUSCULAR HEMOGLOBIN 22.4 pg (27.0-33.4); MEAN CORPUSCULAR HGB CONC 30.7 g/dL (32.0-36.0); MEAN CORPUSCULAR VOLUME 73 fl (80-97); MONOCYTES % (AUTO) 4.3 % (3-13); PLATELET COUNT 302 10^3/uL (150-450); RED BLOOD COUNT 4.65 10^6/uL (3.72-5.28); RED CELL DISTRIBUTION WIDTH 20.7 % (11.5-14.0); SEGMENTED NEUTROPHILS % (AUTO) 86.6 % (42-78); TOTAL CELLS COUNTED % (AUTO) 100 %; WHITE BLOOD COUNT 14.1 10^3/uL (4.0-10.5)
[2020-01-21 08:06] LABS: ANION GAP 7 (5-19); BLOOD UREA NITROGEN 22 mg/dL (7-20); CARBON DIOXIDE 27 mmol/L (22-30); CHLORIDE 102 mmol/L (98-107); GLUCOSE 170 mg/dL (75-110); POTASSIUM 4.1 mmol/L (3.6-5.0)
--- NOTE | 2020-01-21 09:15 | RADIOLOGY REPORT (SQ) ---
EXAM DESCRIPTION: CHEST SINGLE VIEW IMAGES COMPLETED DATE/TIME: 01/21/2020 6:11 am REASON FOR STUDY: RESPIRATORY FAILURE COMPARISON: AP chest 12/28/2019, 01/19/2020, 01/20/2020 Set EXAM PARAMETERS: NUMBER OF VIEWS: One view. TECHNIQUE: Single frontal radiographic view of the chest acquired. RADIATION DOSE: NA LIMITATIONS: None. FINDINGS: LUNGS AND PLEURA: No opacities, masses or pneumothorax. No pleural effusion. MEDIASTINUM AND HILAR STRUCTURES: No masses. Contour normal. HEART AND VASCULAR STRUCTURES: Heart normal in size. Normal vasculature. BONES: No acute findings. Old bilateral proximal humerus fractures HARDWARE: Endotracheal tube tip 5 cm above the tram nasogastric tube tip and side port below the he midiaphragms OTHER: No other significant finding. IMPRESSION: Endotracheal tube, nasogastric tube in good positioning No acute infiltrates TECHNICAL DOCUMENTATION: JOB ID: [id number] 2010 [employer] All Rights Reserved Reading location - IP/workstation name: [email or web address]
[2020-01-21] MEDS: FAMOTIDINE INJ/PF 20 MG/2 ML SDV IV SCH ×2 (10:26→22:17)
[2020-01-21] MEDS: DOCUSATE SODIUM 100 MG/10 ML UDC NG SCH ×2 (10:26→17:07)
[2020-01-21] MEDS ORDERED: DEXTROSE 40% GEL 15 GM TUBE PO PRN ×2 (11:36)
[2020-01-21] MEDS ORDERED: GLUCAGON,HUMAN RECOMB 1 MG INJ IM PRN (11:36)
--- NOTE | 2020-01-21 11:38 | PDOC CRITICAL CARE PROG REPORT ---
General Date:: 01/21/20 ICU Day:: 4 Ventilator Day:: 4 Hospital Day:: 4 Resuscitation Status: Full Code Events in the past 12 to 24 Hours:: The patient presented after being found at home unconscious on the ground. Unclear what prompted this evewnt. However, the patient had what appeared to be a respiratory acidosis. Had apparently been seen her last known normal about 4 days oreviously. No clear evidence f aseptic syndrome or obvious source. The atient is not nor has she been hypotensive. Her CXR does not show a clear pneumonia. 01/19 The patient is oiff all sedation. She has not woken up sufficiently since sed ation was turned down. She had an upgoing gaze this AM. Lashaun was snent for a non contrast Ct scan of the brain whch appears to be unremarakable. Her blood sugar have beeen normal to elevated. She is hemodynamically stable. CXR has been clear. 01/20 The patient does not wake up off of sedation Nher eyes are open but she stares blankly into space. I have a feeeling thepatient may have sustained irreversible damage perhapos as a consequence of prolonged hypoglycemia at home. I have ordered an EEG. Will likely need Trach and PEG in the next few days and placement. Her BP is quite elevated. The patient woulnd up on a Cardene drip yesterday. i have added Lisinopril and Normodyne to her regimen. We do not have any contacts for th epatient Reason for ICU Addmission:: Intubation.Altered mental status. Physical Exam Vital Signs: Temp Pulse Resp BP Pulse Ox 99.0 F 108 H 16 173/77 H 100 01/21/20 10:26 01/21/20 10:00 01/21/20 10:26 01/21/20 10:26 01/21/20 10:26 Intake & Output 01/20/20 01/21/20 01/22/20 06:59 06:59 06:59 Intake Total 1144 2773 219 Output Total 2230 1660 150 Balance -1086 1113 69 Weight 60.1 kg 60.2 kg Weight/Height Weight 60.2 kg Height 5 ft 6 in General appearance: PRESENT: no acute distress, disheveled, thin Head exam: PRESENT: normocephalic Eye exam: PRESENT: conjunctiva pink, PERRLA. ABSENT: scleral icterus Ear exam: PRESENT: normal external ear exam Mouth exam: PRESENT: moist Neck exam: PRESENT: full ROM. ABSENT: JVD, lymphadenopathy, tenderness Respiratory exam: PRESENT: clear to auscultation lauren, unlabored. ABSENT: accessory muscle use Cardiovascular exam: PRESENT: RRR, +S1, +S2 Pulses: PRESENT: normal carotid pulses, normal dorsalis pedis pul GI/Abdominal exam: PRESENT: normal bowel sounds, soft. ABSENT: tenderness Rectal exam: PRESENT: deferred Gentrourinary exam: PRESENT: indwelling catheter. ABSENT: ecchymosis Extremities exam: ABSENT: calf tenderness, clubbing, joint swelling Neurological exam: PRESENT: other - The patient does not follow cvommands or move. She will overbreathe the ventialtor. Laboratory/Radiographs Laboratory Results: 01/21/20 06:20 01/21/20 06:20 01/21/20 01/21/20 06:20 06:20 WBC 14.1 H RBC 4.65 Hgb 10.4 L Hct 33.9 L MCV 73 L MCH 22.4 L MCHC 30.7 L RDW 20.7 H Plt Count 302 Seg Neutrophils % 86.6 H Sodium 135.5 L Potassium 4.1 Chloride 102 Carbon Dioxide 27 Anion Gap 7 BUN 22 H Creatinine 1.05 Est GFR ( Amer) > 60 Glucose 170 H Calcium 8.0 L 01/18/20 15:00 Tracheal Aspirate Gram Stain - Final 01/18/20 15:00 Tracheal Aspirate Sputum Culture - Final C.albicans/C.dubliniensis Normal Isamar 01/18/20 01/18/20 01/18/20 09:55 11:44 15:37 Creatine Kinase 1512 H Troponin I Cancelled 0.022 01/19/20 03:51 Creatine Kinase 1108 H Troponin I Impressions: KUB X-Ray 01/18/20 00:00 IMPRESSION: NG tube touches the greater curvature. Cervical Spine CT 01/18/20 09:51 IMPRESSION: Motion artifact. No fracture identified. Head CT 01/20/20 00:00 IMPRESSION: No acute intracranial findings. Chest X-Ray 01/21/20 06:00 IMPRESSION: Endotracheal tube, nasogastric tube in good positioning No acute infiltrates Assessment and Plan - Diagnosis (1) Abrasion, left lower leg, initial encounter Is this a current diagnosis for this admission?: Yes Plan: Montor status.these appear ba be suerficial injuroes (2) Abrasion, right lower leg, initial encounter Is this a current diagnosis for this admission?: Yes Plan: It appears that thepatient was lying on her shins which a re both red and abraded, (3) Acute respiratory failure with hypercapnia Is this a current diagnosis for this admission?: Yes Plan: I am hoping once the patient appears a bit more alert id can wean her from the ventilator. She does not have alot of secretionsd and is on a reelatively lw FI02. 01/20 last ABG shows a normal pH with PaCO2 of 45. (4) Hypoglycemia Is this a current diagnosis for this admission?: Yes Plan: Her hypoglycemia has resolved.the patient is presently off dextrose with blood sugar coinsistently >100. 01/20 Her hypoglycemia has resolved (5) Unresponsive state Is this a current diagnosis for this admission?: Yes Plan: The patient is still unrepsponsie. CT head was fairly unremarkable. 01/20 I have ordered an EEG. As noted alexx kulkarni she may have sustained irreversiblke brain injury aat home. (6) AI (acute kidney injury) Is this a current diagnosis for this admission?: Yes Plan: May have had a small amount of AI related to her fall and mild rhabdomyolysis. 01/20 the patient had minimal AI with minimal rhabdo on presentation Her creatinine is now in the normal range. Critical Time Critical Time (minutes): 35 Level of Care: ICU -: 1. The care of a critical patient is a dynamic process. This note is a appliance service representative synopsis but static in nature. The timeframe for treatments given in order is not necessarily the actual time these treatments may have been done. 2. This patient requires critical care secondary to ongoing requirements for therapy not offered or safe outside the critical care environment. Transfer to a lower level of care will result in altered life or limb morbidity and mortality. 3. Multidisciplinary rounds completed. 4. ABCDE bundle addressed.
[2020-01-21] MEDS: INSULIN REG, HUMAN 100 UNIT/ML 3 ML VIAL (PYX) SUBCUT SCH ×2 (16:28→19:04)
[2020-01-21] MEDS: LISINOPRIL 10 MG TABLET PO SCH (22:18)
[2020-01-21] MEDS: LABETALOL HCL 200 MG TABLET PO SCH (22:18)
[2020-01-21] MEDS ORDERED: FUROSEMIDE INJ/PF 40 MG/4 ML SDV IV ONE (23:37)
[2020-01-21] MEDS ORDERED: FUROSEMIDE INJ/PF 40 MG/4 ML SDV ONE (23:37)
[2020-01-22] MEDS: RINGERS SOLUTION,LACTATED 1,000 ML IV PRN ×2 (02:27→22:59)
[2020-01-22] MEDS: HEPARIN SOD (PORCINE) 5,000 UNIT/ML 1 ML VIAL SUBCUT SCH ×3 (05:53→22:59)
[2020-01-22] MEDS: INSULIN REG, HUMAN 100 UNIT/ML 3 ML VIAL (PYX) SUBCUT SCH ×4 (06:05→20:06)
[2020-01-22 06:30] LABS: ABSOLUTE BASOPHILS # (AUTO) 0.1 10^3/uL (0.0-0.2); ABSOLUTE LYMPHOCYTES (AUTO) 1.3 10^3/uL (0.5-4.7); ABSOLUTE MONOCYTES (AUTO) 0.8 10^3/uL (0.1-1.4); ABSOLUTE NEUT (AUTO) 11.1 10^3/uL (1.7-8.2); BASOPHILS % (AUTO) 0.4 % (0-2); HEMATOCRIT 32.6 % (36.0-47.0); HEMOGLOBIN 9.9 g/dL (12.0-15.5); LYMPHOCYTES % (AUTO) 9.8 % (13-45); MEAN CORPUSCULAR HEMOGLOBIN 22.3 pg (27.0-33.4); MEAN CORPUSCULAR HGB CONC 30.5 g/dL (32.0-36.0); MEAN CORPUSCULAR VOLUME 73 fl (80-97); MONOCYTES % (AUTO) 5.9 % (3-13); PLATELET COUNT 286 10^3/uL (150-450); RED BLOOD COUNT 4.46 10^6/uL (3.72-5.28); RED CELL DISTRIBUTION WIDTH 20.6 % (11.5-14.0); SEGMENTED NEUTROPHILS % (AUTO) 83.9 % (42-78); TOTAL CELLS COUNTED % (AUTO) 100 %; WHITE BLOOD COUNT 13.3 10^3/uL (4.0-10.5)
[2020-01-22 06:50] LABS: ANION GAP 7 (5-19); BLOOD UREA NITROGEN 24 mg/dL (7-20); CALCIUM 8.1 mg/dL (8.4-10.2); CARBON DIOXIDE 29 mmol/L (22-30); CHLORIDE 101 mmol/L (98-107); GLUCOSE 146 mg/dL (75-110); POTASSIUM 3.5 mmol/L (3.6-5.0)
--- NOTE | 2020-01-22 08:25 | RADIOLOGY REPORT (SQ) ---
EXAM DESCRIPTION: CHEST SINGLE VIEW IMAGES COMPLETED DATE/TIME: 01/22/2020 6:17 am REASON FOR STUDY: RESPIRATORY FAILURE COMPARISON: 01/21/2020 EXAM PARAMETERS: NUMBER OF VIEWS: One view. TECHNIQUE: Single frontal radiographic view of the chest acquired. RADIATION DOSE: NA LIMITATIONS: None. FINDINGS: LUNGS AND PLEURA: Stable emphysematous change and hyperinflation. No focal consolidation, pleural effusion or pneumothorax. MEDIASTINUM AND HILAR STRUCTURES: Stable. HEART AND VASCULAR STRUCTURES: Stable. BONES: Unchanged chronic bilateral proximal humerus fractures. HARDWARE: Endotracheal tube tip overlies midthoracic trachea. Enteric tube tip below diaphragm but e xcluded by collimation. OTHER: No other significant finding. IMPRESSION: No evidence of new cardiopulmonary process. Endotracheal tube tip overlies midthoracic trachea, stable. TECHNICAL DOCUMENTATION: JOB ID: [id number] 2010 [employer]- All Rights Reserved Reading location - IP/workstation name: [email or web address]
[2020-01-22] MEDS ORDERED: TRAZODONE HCL 50 MG TABLET PO PRN (11:23)
--- NOTE | 2020-01-22 11:43 | PDOC CRITICAL CARE PROG REPORT ---
General Date:: 01/22/20 ICU Day:: 4 Ventilator Day:: 4 Hospital Day:: 4 Resuscitation Status: Full Code Events in the past 12 to 24 Hours:: No purposeful neurologic recovery. Review of systems relevant to events:: Neurological. Reason for ICU Addmission:: Intubation.Altered mental status. - Medications: Medications reviewed and adjusted accordingly: Yes Vasopressors:: None Sedation:: None Physical Exam Vital Signs: Temp Pulse Resp BP Pulse Ox 99.3 F 82 16 148/66 H 96 01/22/20 10:51 01/22/20 10:00 01/22/20 10:51 01/22/20 10:51 01/22/20 10:51 Intake & Output 01/21/20 01/22/20 01/23/20 06:59 06:59 06:59 Intake Total 2773 2103 Output Total 1660 1650 250 Balance 1113 453 -250 Weight 60.2 kg 61.2 kg Weight/Height Weight 61.2 kg Height 5 ft 6 in General appearance: PRESENT: no acute distress, thin Head exam: PRESENT: atraumatic, normocephalic Eye exam: PRESENT: conjunctiva pink, EOMI, PERRLA. ABSENT: scleral icterus Ear exam: PRESENT: normal external ear exam Mouth exam: PRESENT: moist, tongue midline Respiratory exam: PRESENT: clear to auscultation lauren, decreased breath sounds. ABSENT: rales, rhonchi, wheezes Cardiovascular exam: PRESENT: RRR. ABSENT: diastolic murmur, rubs, systolic murmur Rectal exam: PRESENT: deferred Gentrourinary exam: PRESENT: indwelling catheter Extremities exam: PRESENT: full ROM. ABSENT: calf tenderness, clubbing, pedal edema Musculoskeletal exam: PRESENT: normal inspection Neurological exam: PRESENT: altered, other - Neurologically she is not moving purposefully. No sedation. Comatose Skin exam: PRESENT: dry, intact, warm. ABSENT: cyanosis, rash Tubes/Lines: PRESENT: Endotracheal Tube, Nasogastic Tube Laboratory/Radiographs Laboratory Results: 01/22/20 06:17 01/22/20 06:17 01/22/20 01/22/20 06:17 06:17 WBC 13.3 H RBC 4.46 Hgb 9.9 L Hct 32.6 L MCV 73 L MCH 22.3 L MCHC 30.5 L RDW 20.6 H Plt Count 286 Seg Neutrophils % 83.9 H Sodium 137.2 Potassium 3.5 L Chloride 101 Carbon Dioxide 29 Anion Gap 7 BUN 24 H Creatinine 1.09 Est GFR ( Amer) 59 L Glucose 146 H Calcium 8.1 L 01/18/20 01/18/20 01/18/20 09:55 11:44 15:37 Creatine Kinase 1512 H Troponin I Cancelled 0.022 01/19/20 03:51 Creatine Kinase 1108 H Troponin I Impressions: KUB X-Ray 01/18/20 00:00 IMPRESSION: NG tube touches the greater curvature. Cervical Spine CT 01/18/20 09:51 IMPRESSION: Motion artifact. No fracture identified. Head CT 01/20/20 00:00 IMPRESSION: No acute intracranial findings. Chest X-Ray 01/22/20 06:00 IMPRESSION: No evidence of new cardiopulmonary process. Endotracheal tube tip overlies midthoracic trachea, stable. All labs, radiographs, diagnostic studies and EKGs were personally reviewed: Yes In addition, reports of radiographic and diagnostic studies were read: Yes Assessment and Plan - Diagnosis (1) Hypoglycemia Is this a current diagnosis for this admission?: Yes Plan: With a reported blood sugar of 20 when found, she certainly could have brain damage from a prolonged hypoglycemic episode. (2) Unresponsive state Is this a current diagnosis for this admission?: Yes Plan: She is not brain as evidenced by breathing and some non-purposeful movement. Overall prognosis quite bad. EEG preformed. (3) Alcohol use disorder Is this a current diagnosis for this admission?: Yes Plan: Continuous and sustained apparently for years. This is unquestionably playing a role in her neuro status. (4) COPD (chronic obstructive pulmonary disease) Qualifiers: COPD type: unspecified COPD Qualified Code(s): J44.9 - Chronic obstructive pulmonary disease, unspecified Is this a current diagnosis for this admission?: Yes Plan: Currently inactive. (5) Diabetes mellitus type 2 in nonobese Is this a current diagnosis for this admission?: Yes Plan: Controlled. Plan Summary: EEG has been performed, however her clinical exam reveals no purposeful neurologic recovery. Discharge planning to search for family. Critical Time Critical Time (minutes): 35 Level of Care: ICU Anticipated discharge: Hospice Anticipated DC Timeframe: Other -: 1. The care of a critical patient is a dynamic process. This note is a representative phlebotomy services synopsis but static in nature. The timeframe for treatments given in order is not necessarily the actual time these treatments may have been done. 2. This patient requires critical care secondary to ongoing requirements for therapy not offered or safe outside the critical care environment. Transfer to a lower level of care will result in altered life or limb morbidity and mortality. 3. Multidisciplinary rounds completed. 4. ABCDE bundle addressed.
[2020-01-22] MEDS: DOCUSATE SODIUM 100 MG/10 ML UDC NG SCH ×2 (11:45→17:31)
[2020-01-22] MEDS: LISINOPRIL 10 MG TABLET PO SCH ×2 (11:45→22:59)
[2020-01-22] MEDS: FAMOTIDINE INJ/PF 20 MG/2 ML SDV IV SCH ×2 (11:45→22:59)
[2020-01-22] MEDS: LABETALOL HCL 200 MG TABLET PO SCH ×2 (11:46→21:49)
[2020-01-22] MEDS: THIAMINE HCL 100 MG TABLET PO SCH (11:46)
--- NOTE | 2020-01-22 16:35 | RADIOLOGY REPORT (SQ) ---
EXAM DESCRIPTION: VENOUS UNILATERAL UPPER IMAGES COMPLETED DATE/TIME: 01/22/2020 3:03 pm REASON FOR STUDY: right arm swelling and erythema COMPARISON: None. TECHNIQUE: Dynamic and static snyder scale and color images acquired of the right arm venous system. S elected spectral images acquired with additional compression and augmentation maneuvers. The contrala teral subclavian vein and internal jugular vein were also imaged. Images stored on PACS. LIMITATIONS: None. FINDINGS: INTERNAL JUGULAR VEIN: Normal phasicity, compression, augmentation. No visualized echogeni c material on snyder scale. No defects on color images. Comparison opposite side normal. SUBCLAVIAN VEIN: Normal compression, augmentation. No visualized echogenic material on snyder scale. No defects on color images. AXILLARY VEIN: Normal compression, augmentation. No visualized echogenic material on snyder scale. No d efects on color images. BRACHIAL VEIN: Normal compression, augmentation. No visualized echogenic material on snyder scale. No d efects on color images. BASILIC VEIN: Normal compression, augmentation. No visualized echogenic material on snyder scale. No de fects on color images. CEPHALIC VEIN: Normal compression, augmentation. No visualized echogenic material on snyder scale. No d efects on color images. OTHER: Mild subcutaneous edema. CONTRALATERAL JUGULAR VEIN: Normal phasicity. No visualized echogenic material on snyder scale. No defects on color images. IMPRESSION: NO EVIDENCE DVT OR SVT RIGHT ARM. SUBCUTANEOUS EDEMA. TECHNICAL DOCUMENTATION: JOB ID: [id number] 2010 [employer]- All Rights Reserved Reading location - IP/workstation name: [email or web address]
[2020-01-22] MEDS: HYDRALAZINE HCL 50 MG TABLET PO SCH (17:31)
[2020-01-22] MEDS: LABETALOL HCL INJ 20 MG/4 ML DISP.SYRIN IV PRN (17:31)
--- NOTE | 2020-01-22 20:49 | NEURO WORKBENCH EEG REPORT ---
EEG Report Patient: Malika Carolina ID: [id number] Referring Doctor: Wil Ramon DOS: 01/22/2020 Medications: Colace, Famotidine, Porcine, Normodyne, Lisinopril History This is a 74 year old female with a history of hypertension, hypercholesterolemia, COPD, Asthma, Bronchitis, hip fractures, left shoulder fracture, type 2 diabetes, depression, alcohol usage. The patient is intubated and has been off sedation since 01/20/2020 admitted in unresponsive state with acute respiratory failure. This EEG was requested for not waking up. EEG Interpretation This EEG was recorded in the comatose state. The background was disorganized. It consisted of primarily delta and theta activity with some alpha. There were periods of discontinuity. There was no noted background change with passive eye opening and closing but there was reactivity of the background. There were episodes of patient movement with muscle artifact noted. There was frequent sharply contoured activity multifocally with several multifocal sharp waves (mostly left and right central, frontal-central, left temporal). There were periods of delta periodicity generalized with a frontal predominance in the ~1Hz range; however these did not evolve and appear most consistent with intermittent rhythmic delta activity. Photic stimulation resulted in a good driving response that was more pronounced on the left. The EKG showed a regular rhythm however it was obscured by artifact through much of the recording. EEG Classification * Sharp waves, multifocal * IRDA * Discontinuity * Disorganized * Generalized background slowing * Asymmetric photic driving EEG Impression This EEG is abnormal. It is suggestive of diffuse cerebral dysfunction. The background is discontinuous which may be due to medications or underlying pathology. There was also an asymmetry noted only with photic stimulation; correlation with neuroimaging may be of interest. There are sharp waves that may be suggestive of with epileptogenic regions. There were times of periodicity but no definitive subclinical seizures. However, given the sharp waves, treatment with an anti-epileptic medication may be considered. INTERPRETING NEUROLOGIST: Briseida Roach MD, FRCPC Board Certified in Neurology, with special qualification in Child Neurology, and in Clinical Neurophysiology [facility]
[2020-01-22] MEDS ORDERED: METOPROLOL TARTRATE PF/INJ 5 MG/5 ML SDV IV PRN ×2 (22:05→22:30)
[2020-01-23] MEDS: INSULIN REG, HUMAN 100 UNIT/ML 3 ML VIAL (PYX) SUBCUT SCH ×3 (00:32→14:26)
[2020-01-23] MEDS ORDERED: METOPROLOL TARTRATE PF/INJ 5 MG/5 ML SDV IV ONE (01:46)
[2020-01-23 04:30] LABS: ANION GAP 7 (5-19); BLOOD UREA NITROGEN 23 mg/dL (7-20); CALCIUM 8.1 mg/dL (8.4-10.2); CARBON DIOXIDE 31 mmol/L (22-30); CHLORIDE 100 mmol/L (98-107); GLUCOSE 148 mg/dL (75-110); POTASSIUM 3.6 mmol/L (3.6-5.0)
[2020-01-23] MEDS: HEPARIN SOD (PORCINE) 5,000 UNIT/ML 1 ML VIAL SUBCUT SCH ×2 (05:30→14:26)
--- NOTE | 2020-01-23 08:22 | RADIOLOGY REPORT (SQ) ---
EXAM DESCRIPTION: CHEST SINGLE VIEW IMAGES COMPLETED DATE/TIME: 01/23/2020 6:24 am REASON FOR STUDY: RESPIRATORY FAILURE COMPARISON: 01/22/2020. EXAM PARAMETERS: NUMBER OF VIEWS: One view. TECHNIQUE: Single frontal radiographic view of the chest acquired. RADIATION DOSE: NA LIMITATIONS: None. FINDINGS: LUNGS AND PLEURA: No opacities, masses or pneumothorax. No pleural effusion. MEDIASTINUM AND HILAR STRUCTURES: No masses. Contour normal. HEART AND VASCULAR STRUCTURES: Heart normal in size. Normal vasculature. BONES: No acute findings. HARDWARE: Stable endotracheal tube and nasogastric tube. OTHER: No other significant finding. IMPRESSION: STABLE APPEARANCE. NO ACUTE RADIOGRAPHIC FINDING IN THE CHEST. TECHNICAL DOCUMENTATION: JOB ID: [id number] 2010 [employer]- All Rights Reserved Reading location - IP/workstation name: [email or web address]
[2020-01-23] MEDS: FAMOTIDINE INJ/PF 20 MG/2 ML SDV IV SCH ×2 (09:59→21:18)
[2020-01-23] MEDS: DOCUSATE SODIUM 100 MG/10 ML UDC NG SCH (09:59)
[2020-01-23] MEDS ORDERED: FOLIC ACID 1 MG TABLET PO SCH (10:00)
[2020-01-23] MEDS ORDERED: PREGABALIN 100 MG CAPSULE PO SCH (10:00)
[2020-01-23] MEDS: LISINOPRIL 10 MG TABLET PO SCH (10:02)
[2020-01-23] MEDS: HYDRALAZINE HCL 50 MG TABLET PO SCH (10:02)
[2020-01-23] MEDS: LABETALOL HCL 200 MG TABLET PO SCH (10:03)
[2020-01-23] MEDS: FLUTICASONE/VILANTEROL 100-25 MCG/DOSE IH SCH (10:03)
[2020-01-23] MEDS: THIAMINE HCL 100 MG TABLET PO SCH (10:26)
--- NOTE | 2020-01-23 10:56 | Progress Note ---
Provider Note Provider Note: I have talked with Ms. Carolina's POA friend. Mr Cornell Hall and reviewed and copied her POA documents. She did not want aggressive care if in the judgement of her physician, there is no hope of a good functional outcome. At this point I do not believe there is. Therefore we will proceed with her wishes and make her comfort care and withdraw support.
[2020-01-23] MEDS ORDERED: MORPHINE SULFATE 10 MG/ML INJ IV ONE ×2 (10:58→14:30)
[2020-01-23] MEDS ORDERED: MORPHINE SULFATE 10 MG/ML INJ IV PRN (16:45)
[2020-01-23] MEDS: MORPHINE SULFATE 10 MG/ML INJ IV PRN (23:08)
[2020-01-24] MEDS: MORPHINE SULFATE 10 MG/ML INJ IV PRN (04:32)
[2020-01-24] MEDS: FAMOTIDINE INJ/PF 20 MG/2 ML SDV IV SCH (09:32)
[2020-01-24] MEDS: FLUTICASONE/VILANTEROL 100-25 MCG/DOSE IH SCH (09:32)
[2020-01-24] MEDS ORDERED: ACETAMINOPHEN 650 MG SUPP.RECT PR PRN (13:10)
[2020-01-24] MEDS: LORAZEPAM INJ 2 MG/1 ML VIAL IV PRN (13:20)
--- NOTE | 2020-01-24 13:51 | PDOC PROGRESS REPORT ---
Subjective Progress Note for:: 01/24/20 Subjective:: Patient is a 74-year-old female who is admitted to me from the ICU for hospice care. Patient was initially seen in the ED on 01/18/2020 after being found unconscious at home. In the ED the patient was found to be hypoglycemic and in respiratory acidosis; with no clear evidence of septic syndrome or pneumonia. The patient was intubated in the ED and admitted to ICU. During her stay in the ICU patient was unable to be weaned off of ventilation secondary to continued decreased alertness. POA documents reviewed and state that she does not want aggressive care if in the judgment of her physician there is no hope of a good functional outcome. ICU physician and Ms. Lee's POA friend Mr. Cornell Hall agreed to respect her wishes. Since she has been weaned off of ventilation and admitted to my care. Hospice consult has been placed. We will implement comfort care at this time. Reason For Visit: UNRESPONSIVE STATE,ACUTE RESPIRATORY FAILURE Physical Exam Vital Signs: Temp Pulse Resp BP Pulse Ox 99.0 F 65 8 L 188/78 H 95 01/23/20 21:00 01/23/20 14:00 01/23/20 21:00 01/23/20 16:08 01/24/20 04:19 Intake & Output 01/23/20 01/24/20 01/25/20 06:59 06:59 06:59 Intake Total 1000 801 Output Total 1430 1590 Balance -430 -789 Weight 61.8 kg 61.8 kg General appearance: PRESENT: no acute distress, thin Head exam: PRESENT: atraumatic, normocephalic Eye exam: ABSENT: scleral icterus Ear exam: PRESENT: normal external ear exam. ABSENT: bleeding, drainage Mouth exam: PRESENT: tongue midline Neck exam: ABSENT: lymphadenopathy Respiratory exam: PRESENT: decreased breath sounds, rhonchi, symmetrical. ABSENT: wheezes Cardiovascular exam: PRESENT: RRR. ABSENT: diastolic murmur, systolic murmur GI/Abdominal exam: PRESENT: normal bowel sounds, soft. ABSENT: distended, firm Rectal exam: PRESENT: deferred Gentrourinary exam: PRESENT: indwelling catheter Extremities exam: ABSENT: clubbing, pedal edema Musculoskeletal exam: ABSENT: ambulatory Neurological exam: PRESENT: other - Patient is unresponsive. Non-purposeful movement noted.. ABSENT: alert, awake Skin exam: PRESENT: dry, intact, warm Results Laboratory Results: 01/22/20 06:17 01/23/20 04:03 01/18/20 10:34 Blood Blood Culture - Final NO GROWTH IN 5 DAYS 01/18/20 09:55 Blood Blood Culture - Final NO GROWTH IN 5 DAYS 01/18/20 01/18/20 01/18/20 09:55 11:44 15:37 Creatine Kinase 1512 H Troponin I Cancelled 0.022 01/19/20 03:51 Creatine Kinase 1108 H Troponin I Impressions: KUB X-Ray 01/18/20 00:00 IMPRESSION: NG tube touches the greater curvature. Cervical Spine CT 01/18/20 09:51 IMPRESSION: Motion artifact. No fracture identified. Head CT 01/20/20 00:00 IMPRESSION: No acute intracranial findings. Venous Doppler Study 01/22/20 00:00 IMPRESSION: NO EVIDENCE DVT OR SVT RIGHT ARM. SUBCUTANEOUS EDEMA. Chest X-Ray 01/23/20 06:00 IMPRESSION: STABLE APPEARANCE. NO ACUTE RADIOGRAPHIC FINDING IN THE CHEST. Assessment and Plan - Diagnosis (1) Hospice care patient Is this a current diagnosis for this admission?: Yes Plan: Comfort care is in place. Consult for inpatient hospice placed. We will keep her comfortable with morphine, lorazepam, and acetaminophen; otherwise all other medical interventions been stopped (2) Unresponsive state Is this a current diagnosis for this admission?: Yes Plan: Patient continues to be unresponsive. Comfort care as stated above (3) COPD (chronic obstructive pulmonary disease) Qualifiers: COPD type: unspecified COPD Qualified Code(s): J44.9 - Chronic obstructive pulmonary disease, unspecified Is this a current diagnosis for this admission?: Yes Plan: Currently inactive. (4) Diabetes mellitus type 2 in nonobese Is this a current diagnosis for this admission?: Yes Plan: Controlled. (5) Hypoglycemia Is this a current diagnosis for this admission?: Yes Plan: This has resolved. Comfort care in place, will no longer monitor. (6) Alcohol use disorder Is this a current diagnosis for this admission?: Yes Plan: Continuous use of alcohol for years, per previous note. - Plan Summary Summary: Patient has been placed on comfort care and will be receiving inpatient hospice. - Time Time Spent with patient: Less than 15 minutes Medications reviewed and adjusted accordingly: Yes Anticipated Discharge Disposition: Inpatient hospice Anticipated Discharge Timeframe: Unknown. Patient is an inpatient hospice.
[2020-01-24 20:24] VITALS: BP 177/83
[2020-01-25] MEDS: LORAZEPAM INJ 2 MG/1 ML VIAL IV PRN ×3 (08:23→14:46)
[2020-01-25] MEDS: MORPHINE SULFATE 10 MG/ML INJ IV PRN ×2 (12:06→14:45)
--- NOTE | 2020-01-25 13:44 | PDOC TRANSFER SUMMARY ---
General - Admit/Disc Date/PCP Admission Date/Primary Care Provider: 01/18/20 12:01 BARBARA LANTIGUA MD Discharge Date: 01/25/20 - Additional Information Resuscitation Status: Comfort Measures Only Discharge Diet: Other (Comments) - Patient unable to safely swallow. Currently n.p.o. Discharge Activity: Bedrest Home Medications: Acetaminophen [Tylenol 650 mg Supp] 650 mg MO Q4HP PRN supp.rect 01/25/20 Lorazepam [Ativan Inj 2 mg/1 ml Vial] 1 mg IV Q2HP PRN vial 01/25/20 Morphine Sulfate [Morphine 10 mg/ml Inj] 4 mg IV Q1HP PRN vial 01/25/20 History of Present Illness Admission Date/PCP: 01/18/20 12:01 BARBARA LANTIGUA MD Patient complains of: Loss of consciousness History of Present Illness: VIVEK MAGUIRE is a 74 year old female Patient was brought pot hospital after a neighbor found her passed out in her home. The last time the patient was seen alert was this past Wednesday ( 4 days ago).The [patient reportedly has a long hsitory of ETOHG abuse. She carries the diagnosis of depressionas well. She required intubation on presentation for a GCS of 3.A cervical collar was placed because of unclear circumstances where she was found on the ground. The patient had a CT head showing microvascular disease. Her Ct cervical spine showed no gross fracture. CXR shows no obvious pathology her initial temp was about 95degrees.The patient has multiple abraisions on her shins and knees and theareas are reddened. She keeps both legs flexed and contracted at the hips and knees. Her right pupil is 3mmand left pupil is 2mm . Both are reactive to ligh.tShe withdraws arma and legs to pain Her initial blood sugar was quite low about 20. Repeat glucometers have been low as well which has led to many amps of dextrose 50 and a D10W drip ultimately. Her urine tox screen was negative. Her urine was 1-2+ positive for glucose and 1 + ketones, no gross evidence of infx. Lactate was only1.6 and her creatinine not far from baseline at 1.24. her AG is only about 7. Hospital Course Hospital Course: The patient had an unfortunate hospital course. Despite no sedation she never recovered. She was not responsive to verbal stimuli. She did withdraw to painful stimuli. When her eyes are open she had a blank stare. After discussion with family it was felt that there was no reasonable chance of any meaningful recovery and so the patient was changed to comfort measures only. She was terminally extubated. She is now transferring to inpatient hospice. Physical Exam Vital Signs: Temp Pulse Resp BP Pulse Ox 98.0 F 112 H 20 177/83 H 83 L 01/25/20 10:00 01/24/20 20:00 01/24/20 20:00 01/24/20 20:00 01/24/20 20:00 Intake & Output 01/24/20 01/25/20 01/26/20 06:59 06:59 06:59 Intake Total 801 Output Total 1590 2049 Balance -789 -2049 Weight 61.8 kg 61.8 kg General appearance: PRESENT: no acute distress, other - Unresponsive Respiratory exam: PRESENT: clear to auscultation lauren - Anteriorly. ABSENT: rales, rhonchi, wheezes Cardiovascular exam: PRESENT: RRR, +S1, +S2 GI/Abdominal exam: PRESENT: diminished bowel sounds, soft. ABSENT: tenderness Neurological exam: PRESENT: other - Unresponsive to verbal stimuli. ABSENT: awake Results Laboratory Results: 01/22/20 06:17 01/23/20 04:03 01/18/20 01/18/20 01/18/20 09:55 11:44 15:37 Creatine Kinase 1512 H Troponin I Cancelled 0.022 01/19/20 03:51 Creatine Kinase 1108 H Troponin I Impressions: KUB X-Ray 01/18/20 00:00 IMPRESSION: NG tube touches the greater curvature. Cervical Spine CT 01/18/20 09:51 IMPRESSION: Motion artifact. No fracture identified. Head CT 01/20/20 00:00 IMPRESSION: No acute intracranial findings. Venous Doppler Study 01/22/20 00:00 IMPRESSION: NO EVIDENCE DVT OR SVT RIGHT ARM. SUBCUTANEOUS EDEMA. Chest X-Ray 01/23/20 06:00 IMPRESSION: STABLE APPEARANCE. NO ACUTE RADIOGRAPHIC FINDING IN THE CHEST. Transfer Plan - Disposition Transfer Plan: The patient will be transferring to inpatient hospice on comfort measures only. We have been utilizing intravenous morphine for pain, agitation or air hunger. She has Tylenol suppositories available. There is also intravenous lorazepam available for agitation or anxiety. Unfortunately she has been unresponsive since leaving the ICU. An order was placed to discontinue oxygen as well but this morning oxygen is in place. Unfortunately this will only prolong the inevitable. - Time Spent with Patient Time spent with patient: Less than 30 Minutes Qualifiers PATIENT BEING DISCHARGED WITH ANY OF THE FOLLOWING DIAGNOSIS: No VTE patient discharged on overlapping Therapy?: No Reason(s) for not prescribing Overlap Therapy:: Comfort Measure Plan Discharge Plan: Transferring to inpatient hospice on comfort measures only. Time Spent: Less than 30 Minutes
== END 2020-01-25 16:11 | disposition hospice, inpatient (51) | DRG 207 ==
LOC: ER 09:35 → EH 12:01 → ICU 13:53 → 4N 01-23 22:15
PROVIDERS: ADMIT Internal Medicine; ATTEND Hospitalist
PROC: 5A1955Z Respiratory Ventilation, Greater than 96 Consecutive Hours (ICD-10-PCS; principal; 2020-01-18)
PROC: 0BH17EZ Insertion of Endotracheal Airway into Trachea, Via Natural or Artificial Opening (ICD-10-PCS; 2020-01-18)
DX: J96.02 Acute respiratory failure with hypercapnia (principal); N17.9 Acute kidney failure, unspecified; M62.82 Rhabdomyolysis; E11.649 Type 2 diabetes mellitus with hypoglycemia without coma; Z51.5 Encounter for palliative care; F10.10 Alcohol abuse, uncomplicated; F32.9 Major depressive disorder, single episode, unspecified; R40.2432 Glasgow coma scale score 3-8, at arrival to emergency department; J44.9 Chronic obstructive pulmonary disease, unspecified; R55 Syncope and collapse; S80.212A Abrasion, left knee, initial encounter; S80.211A Abrasion, right knee, initial encounter; S80.812A Abrasion, left lower leg, initial encounter; S80.811A Abrasion, right lower leg, initial encounter; E78.5 Hyperlipidemia, unspecified; I10 Essential (primary) hypertension; M19.90 Unspecified osteoarthritis, unspecified site; F17.200 Nicotine dependence, unspecified, uncomplicated; Z89.412 Acquired absence of left great toe; Z88.0 Allergy status to penicillin; Z88.8 Allergy status to other drugs, medicaments and biological substances
CPT/HCPCS: 31500; 36415; 36600; 70450; 71045; 72125; 74018; 80048; 80053; 80307; 81001; 82140; 82550; 82803; 82962; 83605; 84484; 85025; 85610; 87040; 87070; 87205; 93005; 93010; 93971; 94002; 94003; 95819; 96361; 96365; 99285; 99291; J0330; J1644; J1815; J1940; J2060; J2250; J2270; J2704; J3411; J3490; J7042; J7050; J7120; S0028